=== PATIENT | male | born 1960 | race Caucasian/White ===

== ENCOUNTER 2018-01-07 13:19 | Emergency (ER) | END 2018-01-07 20:56 | disposition home or self-care (01) ==

== ENCOUNTER 2018-01-13 16:00 | Emergency (ER) | END 2018-01-13 21:36 | disposition home or self-care (01) ==

== ENCOUNTER 2018-01-25 09:39 | Inpatient (IN) | payer OTHER ==
[~2018-01-25] VITALS: Ht 177.8 cm; Wt 74.1 kg
[~2018-01-25 09:39] MED LIST: ALLO100T PO; AMAN100C96 PO; BACL10TA PO; BISA10SU55 RC; CARV12.579 PO; CIPR500T4 PO; DOCU-144 PO; DULO30CA47 PO; GABA100C14 PO; HYDR-3980 PO; IBUP-1542 PO; ISON300T18 PO; MAGN400T28 PO; ONDA4TAB8 PO; PETR5OIN3 TOP; POLY15DR25 BOTH EYES; RIFA300C53 PO; RISP1TAB3 PO; ZONI100C66 PO
[2018-01-25] MEDS ORDERED: PIPER-TAZO 3.375 GM IV (PMX) 100 ML IVPB STA (09:47)
[2018-01-25] MEDS ORDERED: VANCOMYCIN 1 GM (PMX) 250 ML IVPB STA (09:47)
[2018-01-25] MEDS ORDERED: SODIUM CHLORIDE 0.9% 1L BAG IV* STA (09:47)
[2018-01-25 10:02] VITALS: Ht 177.8 cm; Wt 74.1 kg
[2018-01-25] MEDS ORDERED: NST15PW TOP (11:02)
[2018-01-25] MEDS ORDERED: ZONI100C66 PO (11:05)
[2018-01-25] MEDS ORDERED: PYRI50TA14 PO (11:09)
[2018-01-25] MEDS ORDERED: FOLI-49 PO (11:09)
[2018-01-25] MEDS ORDERED: FAMO20TA18 PO (11:09)
[2018-01-25] MEDS ORDERED: LIDO30JE13 TP (11:13)
[2018-01-25] MEDS ORDERED: NITROL TD (11:14)
--- NOTE | 2018-01-25 12:16 | ERD ---
ER Documentation Chief Complaint Chief Complaint bilat feet pressure ulcers, wound check HPI This is a 57-year-old male with paraplegia secondary to spinal cord syndrome who presents to the emergency department with ulcers on both of his feet. The patient has had a tactile fever with shaking and chills. No antipyretics were given prior to arrival. The patient states he had a decrease in appetite but denies any chest pain. He denies any abdominal pain. He has no shortness of breath at rest or exertion. He denies any pain of his feet as he states he has no sensation due to his paraplegia. He resides at [place] the hospital was transferred to the emergency department by ambulance. His ex- is here and states that she frequently visits the patient and that the ulcers were not present roughly 2 weeks ago. Ex- states she noticed foul-smelling drainage from the ulcer on the right foot. ROS All systems reviewed and are negative except as per history of present illness. Medications Home Meds Reported Medications Nitroglycerin* (Nitro-Bid* Oint (30gm)) 1 Inch Oint, 1 INCH TD Q6 PRN for DYSURIA, TUB 01/25/18 Lidocaine (Lidocaine Topical) 30 Ml Jel, 30 ML TP PRN PRN for IF CATHETER REMAINS OCCULUDED 01/25/18 Famotidine* (Famotidine*) 20 Mg Tablet, 20 MG PO BID, #60 TAB 01/25/18 Folic Acid* (Folic Acid*) 1 Mg Tablet, 1 MG PO DAILY, TAB 01/25/18 Pyridoxine Hcl* (Pyridoxine Hcl*) 50 Mg Tablet, 50 MG PO DAILY, TAB 01/25/18 Zonisamide* (Zonegran*) 100 Mg Capsule, 300 MG PO QHS, CAP 01/25/18 Nystatin* (Nyamyc* Powder) 1 Applic Powder, 1 APPLIC TOP BID, EA 01/25/18 Polyvinyl Alcohol (Tears Again) 15 Ml Drops, 1 DRP BOTH EYES Q8, BOTTLE 01/07/18 Hydrocodone/Acetaminophen ([place] 10-325 Tablet) 1 Each Tablet, 1 EACH PO Q6 PRN for PAIN, TAB 01/07/18 Risperidone* (Risperidone*) 1 Mg Tablet, 1 MG PO QHS, TAB 01/07/18 Magnesium Oxide* (Magnesium Oxide*) 400 Mg Tablet, 400 MG PO BID, TAB 01/07/18 Gabapentin* (Gabapentin*) 100 Mg Capsule, 100 MG PO BID, #90 CAP 01/07/18 Petrolatum,White* (Vaseline*) 5 Gm Oint.pack, 1 APPLIC TOP BID, PACKET 01/07/18 Carvedilol* (Carvedilol*) 12.5 Mg Tablet, 12.5 MG PO BID, #60 TAB 01/07/18 Duloxetine Hcl* (Duloxetine Hcl*) 30 Mg Capsule.dr, 30 MG PO DAILY, #30 CAP 01/07/18 Baclofen* (Baclofen*) 10 Mg Tablet, 10 MG PO TID, TAB 01/07/18 Allopurinol* (Allopurinol*) 100 Mg Tablet, 100 MG PO DAILY, TAB 01/07/18 Rifampin* (Rifampin*) 300 Mg Cap, 600 MG PO DAILY, CAP 01/07/18 Isoniazid* (Isoniazid*) 300 Mg Tablet, 300 MG PO DAILY, TAB 01/07/18 Bisacodyl (Dulcolax) 10 Mg Supp.rect, 10 MG RC DAILY PRN for CONSTIPATION, SUPP.RECT 01/07/18 Docusate Sodium* (Colace*) 100 Mg Capsule, 100 MG PO BID PRN for CONSTIPATION, #60 CAP 01/07/18 Discontinued Reported Medications Zonisamide* (Zonegran*) 100 Mg Capsule, 200 MG PO DAILY, CAP TAKE TWO CAPS STARTING 01-10 THRU 01-16-18 THEN THREE CAPS AFTER 01/07/18 Zonisamide* (Zonegran*) 100 Mg Capsule, 100 MG PO DAILY, CAP TAKE ONE CAP THRU 01-09-18 01/07/18 Amantadine Hcl* (Amantadine Hcl*) 100 Mg Capsule, 100 MG PO BID, #60 CAP 01/07/18 Polyvinyl Alcohol (Tears Again) 15 Ml Drops, 1 DRP BOTH EYES QID, BOTTLE 01/07/18 Discontinued Scripts Ondansetron Hcl* (Zofran*) 4 Mg Tablet, 4 MG PO Q8H PRN for NAUSEA AND/OR VOMITING, #30 TAB Prov:MARC BLACKBURN MD 01/13/18 Ibuprofen* (Motrin*) 600 Mg Tab, 600 MG PO Q8 PRN for PAIN AND/OR INFLAMMATION, #30 TAB Prov:MARC BLACKBURN MD 01/13/18 Ciprofloxacin Hcl* (Ciprofloxacin Hcl*) 500 Mg Tablet, 500 MG PO BID for 10 Days, TAB Prov:CRISTOPHER SPAIN MD 01/07/18 Allergies Allergies: Coded Allergies: chicken derived (Verified Allergy, Unknown, 01/25/18) shrimp (Verified Allergy, Unknown, 01/25/18) PMhx/Soc History of Surgery: Yes (back) Hx Cardiac Disorders: Yes (htn) Hx Psychiatric Problems: No Hx Miscellaneous Medical Probl: Yes (dm2; paraplegic) Hx Alcohol Use: No Hx Substance Use: No Hx Tobacco Use: No Smoking Status: Never smoker Physical Exam Vitals Vital Signs Date Temp Pulse Resp B/P (MAP) Pulse Ox O2 O2 Flow FiO2 Time Delivery Rate 01/25/18 89 31 101/66 100 Room Air 11:59 (78) 01/25/18 98 15 86/57 (67) 100 Room Air 10:02 01/25/18 96.8 111 21 86/57 (67) 100 10:02 Physical Exam Constitutional:Well-developed. Well-nourished. HEENT:Normocephalic. Atraumatic.Pupils were equal round reactive to light. Moist mucous membranes.No tonsillar exudates. Neck: No nuchal rigidity. No lymphadenopathy. No posterior cervical spine tenderness or step-offs. Respiratory: Not using accessory muscles of respiration.Lungs were clear to auscultation bilaterally. No rhonchi. No rales. No wheezing. Cardiovascular: Regular rate regular rhythm.No murmurs. No rubs were appreciated.S1, S2 normal. Distal pulses are palpable 2+ bilaterally. GI: Abdomen was soft. Nontender. Non Distended. No pulsatile abdominal masses or bruits. No rebound. No guarding. Bowel sounds were present and normal. Muscle skeletal: Full range of motion of both the upper extremities bilaterally. Muscle atrophy of the bilateral lower extremities. Patient has no active movement of bilateral lower extremities due to paraplegia Skin: No petechia, no purpura. No lesions on the palms or the soles of the feet. No maculopapular rash. Bilateral ulcers present on the calcaneus of the left and the right foot. Eschar formation with no subcutaneous emphysema over the right calcaneus. Purulent drainage with no fluctuance or induration over the left calcaneus ulcer that extends to the medial aspect of the foot roughly 4 cm x 5 cm. NEURO: Patient was alert, awake, orientated x3.No facial droop. Gait unobserved as patient is paralyzed. Result Diagram: 01/25/18 1000 01/25/18 1000 Results 24 hrs Laboratory Tests Test 01/25/18 10:00 01/25/18 10:13 White Blood Count 4.8 10^3/ul Red Blood Count 3.39 10^6/ul Hemoglobin 8.6 g/dl Hematocrit 27.6 % Mean Corpuscular Volume 81.4 fl Mean Corpuscular Hemoglobin 25.4 pg Mean Corpuscular Hemoglobin Concent 31.2 g/dl Red Cell Distribution Width 15.6 % Platelet Count 403 10^3/UL Mean Platelet Volume 9.4 fl Immature Granulocytes % 0.400 % Neutrophils % 57.1 % Lymphocytes % 24.3 % Monocytes % 7.8 % Eosinophils % 9.6 % Basophils % 0.8 % Nucleated Red Blood Cells % 0.0 /100WBC Immature Granulocytes # 0.020 10^3/ul Neutrophils # 2.7 10^3/ul Lymphocytes # 1.2 10^3/ul Monocytes # 0.4 10^3/ul Eosinophils # 0.5 10^3/ul Basophils # 0.0 10^3/ul Nucleated Red Blood Cells # 0.0 10^3/ul Prothrombin Time 14.8 Sec Prothrombin Time Ratio 1.2 INR International Normalized Ratio 1.14 Activated Partial Thromboplast Time 45.9 Sec Sodium Level 137 mmol/L Potassium Level 4.9 mmol/L Chloride Level 107 mmol/L Carbon Dioxide Level 20 mmol/L Anion Gap 10 Blood Urea Nitrogen 9 mg/dl Creatinine 0.72 mg/dl Est Glomerular Filtrat Rate mL/min > 60 mL/min Glucose Level 109 mg/dl Calcium Level 8.5 mg/dl Total Bilirubin 0.4 mg/dl Direct Bilirubin 0.00 mg/dl Indirect Bilirubin 0.4 mg/dl Aspartate Amino Transf (AST/SGOT) 57 IU/L Alanine Aminotransferase (ALT/SGPT) 14 IU/L Alkaline Phosphatase 95 IU/L Troponin I < 0.012 ng/ml Total Protein 6.9 g/dl Albumin 3.3 g/dl Globulin 3.60 g/dl Albumin/Globulin Ratio 0.91 Amylase Level 59 U/L Lipase 106 U/L POC Venous Lactate 1.8 mmol/L Current Medications Medications Dose Sig/Betzaida Start Time Status Last (Trade) Ordered Route PRN Stop Time Admin Dose Reason Admin Sodium 2,400 ml BOLUS OVER 2 01/25/18 DC 01/25/18 Chloride HOURS STAT 09:47 10:36 (NS) IV* 01/25/18 09:49 Vancomycin 250 ml @ ONCE STAT 01/25/18 DC 01/25/18 HCl 125 mls/hr IVPB 09:47 10:36 01/25/18 11:46 Piperacillin 100 ml @ ONCE STAT 01/25/18 DC 01/25/18 Sod/ 200 mls/hr IVPB 09:47 10:36 Tazobactam 01/25/18 Sod 10:16 Procedures/MDM The patient presented to the emergency department with a spreading erythematous superficial infection of the skin and subcutaneous tissues. My differential diagnosis included but was not limited to necrotizing fasciitis, lymphangitis, thrombophlebitis, deep vein thrombosis, allergic reaction, neoplasm, gout or a bscess. Predisposing factors of the progressive spread of erythema, warmth, pain and tenderness was considered such as lymphedema, tinea pedis, open wounds, prior trauma or surgery, pre-existing skin lesion (furuncle), retained foreign body, injection drug use or vascular or immune compromise. The patient was placed on antibiotics to cover Staphylococcus aureus, including resistant strains such as community-acquired methicillin-resistant S. aureus. The patient had no evidence of sepsis and lactic acid was normal. There is no leukocytosis. The patient was afebrile. The patient did receive IV antibiotics in the emergency department which consisted of clindamycin and vancomycin. I obtained bilateral radiographic imaging, 2 views of both the left and the right foot which showed no secondary changes to suggest ostium mellitus. However it is unknown how long the patient's cellulitic ulcers have been present. Due to the severity of his symptoms I do feel is necessary that the patient be admitted for IV antibiotics and wound care. I do feel the patient was stable to go to the medical surgical floor. 12 Lead EKG tracing ordered and reviewed by myself showed: Normal sinus rhythm of 87 bpm and no arrhythmia. KS interval normal QRS duration prolonged at 142 ms with a right bundle branch block. No ST segment elevation No ST segment depression. No changes consistent with acute ischemia. Departure Diagnosis: Primary Impression: Cellulitis Site of cellulitis: extremity Site of cellulitis of extremity: lower extremity Laterality: unspecified laterality Qualified Codes: L03.119 - Cellulitis of unspecified part of limb Additional Impression: Anemia Anemia type: unspecified type Qualified Codes: D64.9 - Anemia, unspecified Condition: Serious AYDEN GONZALEZ MD Jan 25, 2018 12:16
[2018-01-25] MEDS ORDERED: ONDANSETRON 4 MG INJ IV STA (13:12)
[2018-01-25] MEDS ORDERED: HYDROmorphONE 1 MG/ML SYG IV STA (13:12)
[2018-01-25] MEDS ORDERED: ONDANSETRON 4 MG INJ IV PRN ×2 (15:00→15:30)
[2018-01-25] MEDS ORDERED: ACETAMINOPHEN 325 MG TAB PO PRN (15:00)
[2018-01-25] MEDS ORDERED: DOCUSATE SODIUM 100 MG CAP PO PRN ×2 (15:30)
[2018-01-25] MEDS ORDERED: NACL 0.9% 3 ML SYG IV SCH (15:30)
[2018-01-25] MEDS ORDERED: VANCOMYCIN IV PER PHARMACY XX SCH (15:30)
[2018-01-25] MEDS ORDERED: ZOLPIDEM 5 MG TAB PO PRN (15:30)
--- NOTE | 2018-01-25 16:11 | NUR ---
Vancomycin per Rx 57 y/o M 5'10" 74.1kg SCr 0.72 No drug allergy chicken derived and shrimp allergy Vancomycin 1gm IV x1 dose given in ER Start Vancomycin 1.25 gm IV q12h
[2018-01-25] MEDS ORDERED: PENDING SANTYL ORDER FOR WOUND CARE XX PRN (16:30)
--- NOTE | 2018-01-25 17:39 | NUR ---
RN Notes: Admitted this male patient from ER under Dr. Jensen due to bilateral foot pressure sore, alert and oriented, afebrile, denies pain/discomfort, no acute distress noted, no sob noted, paraplegic due to spinal cord syndrome, Benavidez patent and intact draining well, no hematuria noted, skin assessment done noted with skin issue as documented on wound intervention, MD aware, referred to wound care for consult, ordered low air loss mattress. Kept clean and dry. Admission care rendered. Will continue to monitor and endorse to next shift for continuity of care.
--- NOTE | 2018-01-25 19:36 | HP ---
Date/Time of Note Date/Time of Note DATE: 01/25/18 TIME: 19:28 Assessment/Plan VTE Prophylaxis SCD applied (from Nsg): Yes Pharmacological prophylaxis: NA/contraindicated Pharm contraindication: surgical contra Lines/Catheters IV Catheter Type (from Nrsg): Peripheral IV Assessment/Plan Hospital Course 1. Right heel ulcer likely secondary to bedbound state Wound Care and IV antibiotics Podiatry consult obtained 2. Paraplegia secondary to spinal disorder and back surgery 6 months ago Exact nature of disorder and surgery unclear Patient resides in a skilled nurse facility Continue baclofen 3. Likely latent TB per home meds Continue isoniazid 4. Depression Continue home Cymbalta 5. Hypertension Continue Coreg Prophylaxis: SCDs HPI/ROS Admit Date/Time Admit Date/Time Jan 25, 2018 at 14:38 Hx of Present Illness Patient is a 57-year-old male with a history of paraplegia reportedly for the last 6 months secondary to spinal cord syndrome presents to the ER with ulcers on both his feet. [facility], according to patient's ex- ulcers are new over the past 2 weeks reportedly has been woody ving foul-smelling drainage from the ulcer on the right foot. In the ER patient has no evidence of sepsis. Patient has no other acute complaints at this time. ROS Constitutional: no complaints, improved Eyes: no complaints ENT: no complaints Respiratory: no complaints Cardiovascular: no complaints Gastrointestinal: no complaints Genitourinary: no complaints Musculoskeletal: no complaints Skin: skin lesions Neurologic: no complaints Endocrine: no complaints Lymphatic: no complaints Psychological: no complaints, nl mood/affect Immunologic: no complaints PMH/Family/Social Past Medical History As per HPI Coded Allergies: chicken derived (Verified Allergy, Unknown, 01/25/18) shrimp (Verified Allergy, Unknown, 01/25/18) Past Surgical History Spinal surgery 6 months ago which reportedly left him paralyzed Family History Significant Family History: no pertinent family hx Social History Alcohol Use: rarely Smoking Status: Never smoker Drug Use: none Exam/Review of Systems Vital Signs Vitals Vital Signs Date Temp Pulse Resp B/P (MAP) Pulse Ox O2 O2 Flow FiO2 Time Delivery Rate 01/25/18 84 22 106/68 100 Room Air 15:01 (81) 01/25/18 96.8 10:02 Exam Constitutional: alert, oriented Respiratory: clear to auscultation Cardiovascular: regular rate and rhythm Gastrointestinal: soft; No distended Musculoskeletal: nl extremities to inspection Medications Medications Current Medications IV Flush (NS 3 ml) 3 ml PER PROTOCOL IV ; Start 01/25/18 at 15:30 Ondansetron HCl (Zofran Inj) 4 mg Q6H PRN IV NAUSEA AND/OR VOMITING; Start 01/25/18 at 15:30 Acetaminophen (Tylenol Tab) 650 mg Q6H PRN PO PAIN LEVEL 1-3 OR FEVER; Start 01/25/18 at 15:30 Acetaminophen/ Hydrocodone Bitart ([place] (5/325)) 1 tab Q6H PRN PO MODERATE PAIN LEVEL 4-6; Start 01/25/18 at 15:30 Morphine Sulfate (morphine) 2 mg Q4H PRN IV SEVERE PAIN LEVEL 7-10; Start 01/25/18 at 15:30 Docusate Sodium (Colace) 100 mg Q12H PRN PO CONSTIPATION; Start 01/25/18 at 15:30 Zolpidem Tartrate (Ambien) 5 mg QHS PRN PO SLEEP; Start 01/25/18 at 15:30 Allopurinol (Zyloprim) 100 mg DAILY PO ; Start 01/26/18 at 09:00 Baclofen (Lioresal) 10 mg TID PO ; Start 01/25/18 at 21:00 Carvedilol (Coreg) 12.5 mg BID PO ; Start 01/25/18 at 21:00 Docusate Sodium (Colace) 100 mg BID PRN PO CONSTIPATION; Start 01/25/18 at 15:30 Duloxetine HCl (Cymbalta) 30 mg DAILY PO ; Start 01/26/18 at 09:00 Famotidine (Pepcid) 20 mg BID PO ; Start 01/25/18 at 21:00 Folic Acid (Folic Acid) 1 mg DAILY PO ; Start 01/26/18 at 09:00 Gabapentin (Neurontin) 100 mg BID PO ; Start 01/25/18 at 21:00 Isoniazid (Isoniazid) 300 mg DAILY PO ; Start 01/26/18 at 09:00 Magnesium Oxide (Mag-Ox 400) 400 mg BID PO ; Start 01/25/18 at 21:00 Nystatin 1 applic BID TOP ; Start 01/25/18 at 21:00 Pyridoxine HCl (Vitamin B6) 50 mg DAILY PO ; Start 01/26/18 at 09:00 Rifampin (Rifampin) 600 mg DAILY PO ; Start 01/26/18 at 09:00 Risperidone (Risperdal) 1 mg QHS PO ; Start 01/25/18 at 21:00 Zonisamide (Zonegran) 300 mg QHS PO ; Start 01/25/18 at 21:00 Vancomycin HCl (Vanco Iv Per Pharmacy) VANCOMYCIN PER PHARMACY PER PROTOCOL XX ; Start 01/25/18 at 15:30 Eye Lubricant (Artificial Tears Oph) 1 drop Q8 BOTH EYES ; Start 01/25/18 at 22:00 Vancomycin HCl 1.25 gm/Sodium Chloride 250 ml @ 83.333 mls/ hr Q12H IVPB ; Start 01/25/18 at 22:00 Influenza Virus Vaccine Quadrival (Fluzone) 0.5 ml ONCE ONCE IM* ; Start 01/26/18 at 09:00; Stop 01/26/18 at 09:01 Miscellaneous Information (Pending [facility] Order For Wound Care) This patient woody... PRN PRN XX wound; Start 01/25/18 at 16:30 Results Result Diagram: 01/25/18 1000 01/25/18 1000 ALEKSANDR GALAVIZ Jan 25, 2018 19:36
[2018-01-25] MEDS: morphine 2 MG INJ IV PRN (19:57)
[2018-01-25 20:00] VITALS: BP 116/68; PULSE 85; RESP 18
[2018-01-25] MEDS ORDERED: POLYVINYL ALCOHOL BOTH EYES SCH (22:00)
[2018-01-25] MEDS: GABAPENTIN 100 MG CAP PO SCH (22:10)
[2018-01-25] MEDS: MAGNESIUM OXIDE 400 MG TAB PO SCH (22:10)
[2018-01-25] MEDS: FAMOTIDINE 20 MG TAB PO SCH (22:10)
[2018-01-25] MEDS: RISPERIDONE 1 MG TAB PO SCH (22:11)
[2018-01-25] MEDS: BACLOFEN 10 MG TAB PO SCH (22:11)
[2018-01-25] MEDS: ARTIFICIAL TEARS 15 ML OPH BOTH EYES SCH (22:12)
[2018-01-25] MEDS: ZONISAMIDE 100 MG CAP PO SCH (22:12)
[2018-01-25] MEDS: NYSTATIN 15 GM POWDER BTL TOP SCH (22:12)
[2018-01-25] MEDS: VANCOMYCIN 1.25 GM in SOD CHLORIDE 0.9% 250 ML IVPB SCH (22:39)
[2018-01-26] MEDS: morphine 2 MG INJ IV PRN ×2 (00:27→13:40)
[2018-01-26 02:00] VITALS: BP 115/66; PULSE 65; RESP 18
[2018-01-26] MEDS: ARTIFICIAL TEARS 15 ML OPH BOTH EYES SCH ×3 (06:49→21:31)
[2018-01-26 08:03] VITALS: BP 115/65; PULSE 78; RESP 17
[2018-01-26] MEDS: RIFAMPIN 300 MG CAP PO SCH (08:38)
[2018-01-26] MEDS: FOLIC ACID 1 MG TAB PO SCH (08:38)
[2018-01-26] MEDS: GABAPENTIN 100 MG CAP PO SCH ×2 (08:38→21:32)
[2018-01-26] MEDS: DULOXETINE 30 MG CAP DR PO SCH (08:39)
[2018-01-26] MEDS: FAMOTIDINE 20 MG TAB PO SCH ×2 (08:39→21:33)
[2018-01-26] MEDS: PYRIDOXINE 50 MG TAB PO SCH (08:39)
[2018-01-26] MEDS: BACLOFEN 10 MG TAB PO SCH ×3 (08:39→21:33)
[2018-01-26] MEDS: ISONIAZID 300 MG TAB PO SCH (08:39)
[2018-01-26] MEDS: MAGNESIUM OXIDE 400 MG TAB PO SCH ×2 (08:39→21:33)
[2018-01-26] MEDS: ALLOPURINOL 100 MG TAB PO SCH (08:39)
[2018-01-26] MEDS: NYSTATIN 15 GM POWDER BTL TOP SCH ×2 (08:40→21:34)
--- NOTE | 2018-01-26 08:43 | NUR ---
UM:clinical review,h/p and face sheet faxed to [facility] with confirmation rec'd.
[2018-01-26] MEDS: VANCOMYCIN 1.25 GM in SOD CHLORIDE 0.9% 250 ML IVPB SCH ×2 (09:39→21:31)
--- NOTE | 2018-01-26 12:24 | PN ---
Date/Time of Note Date/Time of Note DATE: 01/26/18 TIME: 12:23 Assessment/Plan VTE Prophylaxis Risk score (from Nsg)>0 risk: 6 SCD applied (from Nsg): Yes Pharmacological prophylaxis: NA/contraindicated Pharm contraindication: bleeding, anticoag not tolerated Lines/Catheters IV Catheter Type (from Nrsg): Peripheral IV Urinary Cath still in place: Yes Reason Cath still needed: pres ulcer contaminated by urine, other (indicate) Assessment/Plan Hospital Course SUBJECTIVE: Lying in bed comfortably. No acute overnight episodes. OBJECTIVE: Vital signs-see below PHYSICAL EXAM: Constitutional: Bedbound male, not in acute distress. Psych: nl mood/affect, no complaints Head: atraumatic, normocephalic Eyes: nl conjunctiva, nl sclera ENMT: mucosa pink and moist, nl external ears & nose Neck: non-tender, supple Respiratory: clear to auscultation, normal air movement Cardiovascular: nl pulses, regular rate and rhythm Gastrointestinal: non-tender, soft, bowel sounds active in all 4 quadrants. Musculoskeletal/extremities: Paraplegic. Normal pulses,no cyanosis, no edema. Neurological: Alert oriented 3,nl speech, nl strength Skin: Bilateral heel with ulcers, covered with dressing. No oozing noted on dressing. Nl turgor ASSESSMENT/PLAN: Very unfortunate 57-year-old male with a history of paraplegia secondary to spinal cord syndrome 6 months ago, who also resides in a [facility], presented to the emergency room with worsening bilateral heel ulcers with foul-smelling drainage 1. Bilateral heel ulcer likely decub ulcers Wound Care and IV antibiotics Follow-up podiatry recommendations 2. Paraplegia secondary to spinal disorder and back surgery 6 months ago Exact nature of disorder and surgery unclear Continue baclofen 3. Likely latent TB per home meds Continue isoniazid 4. Depression Continue home Cymbalta 5. Hypertension Continue Coreg 6. Debility secondary to #2. Patient resides in a [facility]. 7. Anemia -Obtain iron panel. -If hemoglobin drops below 7, we will transfuse. Prophylaxis: SCDs. Disposition: Continue aggressive wound care and antibiotics. Follow podiatry recommendations. Patient was seen in collaboration with Dr. Awad. Exam/Review of Systems Vital Signs Vitals Vital Signs Date Temp Pulse Resp B/P (MAP) Pulse Ox O2 O2 Flow FiO2 Time Delivery Rate 01/26/18 99.1 78 17 115/65 99 Room Air 08:03 (82) Intake and Output 01/25/18 01/25/18 01/26/18 1515:00 23:00 07:00 IntakeIntake Total 300 ml 450 ml OutputOutput Total 350 ml 1000 ml BalanceBalance -50 ml -550 ml Medications Medications Current Medications IV Flush (NS 3 ml) 3 ml PER PROTOCOL IV ; Start 01/25/18 at 15:30 Ondansetron HCl (Zofran Inj) 4 mg Q6H PRN IV NAUSEA AND/OR VOMITING; Start 01/25/18 at 15:30 Acetaminophen (Tylenol Tab) 650 mg Q6H PRN PO PAIN LEVEL 1-3 OR FEVER; Start 01/25/18 at 15:30 Acetaminophen/ Hydrocodone Bitart ([place] (5/325)) 1 tab Q6H PRN PO MODERATE PAIN LEVEL 4-6; Start 01/25/18 at 15:30 Morphine Sulfate (morphine) 2 mg Q4H PRN IV SEVERE PAIN LEVEL 7-10 Last administered on 01/26/18at 00:27; Admin Dose 2 MG; Start 01/25/18 at 15:30 Docusate Sodium (Colace) 100 mg Q12H PRN PO CONSTIPATION; Start 01/25/18 at 1 5:30 Zolpidem Tartrate (Ambien) 5 mg QHS PRN PO SLEEP; Start 01/25/18 at 15:30 Allopurinol (Zyloprim) 100 mg DAILY PO Last administered on 01/26/18at 08:39; Admin Dose 100 MG; Start 01/26/18 at 09:00 Baclofen (Lioresal) 10 mg TID PO Last administered on 01/26/18at 08:39; Admin Dose 10 MG; Start 01/25/18 at 21:00 Carvedilol (Coreg) 12.5 mg BID PO Last administered on 01/26/18at 08:40; Admin Dose 12.5 MG; Start 01/25/18 at 21:00 Docusate Sodium (Colace) 100 mg BID PRN PO CONSTIPATION; Start 01/25/18 at 15:30 Duloxetine HCl (Cymbalta) 30 mg DAILY PO Last administered on 01/26/18at 08:39; Admin Dose 30 MG; Start 01/26/18 at 09:00 Famotidine (Pepcid) 20 mg BID PO Last administered on 01/26/18 08:39; Admin Dose 20 MG; Start 01/25/18 at 21:00 Folic Acid (Folic Acid) 1 mg DAILY PO Last administered on 01/26/18 08:38; Admin Dose 1 MG; Start 01/26/18 at 09:00 Gabapentin (Neurontin) 100 mg BID PO Last administered on 01/26/18 08:38; Admin Dose 100 MG; Start 01/25/18 at 21:00 Isoniazid (Isoniazid) 300 mg DAILY PO Last administered on 01/26/18 08:39; Admin Dose 300 MG; Start 01/26/18 at 09:00 Magnesium Oxide (Mag-Ox 400) 400 mg BID PO Last administered on 01/26/18 08:39; Admin Dose 400 MG; Start 01/25/18 at 21:00 Nystatin 1 applic BID TOP Last administered on 01/26/18 08:40; Admin Dose 1 APPLIC; Start 01/25/18 at 21:00 Pyridoxine HCl (Vitamin B6) 50 mg DAILY PO Last administered on 01/26/18 08:39; Admin Dose 50 MG; Start 01/26/18 at 09:00 Rifampin (Rifampin) 600 mg DAILY PO Last administered on 01/26/18 08:38; Admin Dose 600 MG; Start 01/26/18 at 09:00 Risperidone (Risperdal) 1 mg QHS PO Last administered on 01/25/18 22:11; Admin Dose 1 MG; Start 01/25/18 at 21:00 Zonisamide (Zonegran) 300 mg QHS PO Last administered on 01/25/18 22:12; Admin Dose 300 MG; Start 01/25/18 at 21:00 Vancomycin HCl (Vanco Iv Per Pharmacy) VANCOMYCIN PER PHARMACY PER PROTOCOL XX ; Start 01/25/18 at 15:30 Eye Lubricant (Artificial Tears Oph) 1 drop Q8 BOTH EYES Last administered on 01/26/18 06:49; Admin Dose 1 DROP; Start 01/25/18 at 22:00 Vancomycin HCl 1.25 gm/Sodium Chloride 250 ml @ 83.333 mls/ hr Q12H IVPB Last administered on 01/26/18 09:39; Admin Dose 83.333 MLS/HR; Start 01/25/18 at 22:00 Miscellaneous Information (Pending Santyl Order For Wound Care) This patient woody... PRN PRN XX wound; Start 01/25/18 at 16:30 Miscellaneous Information (*Rx Drug Level Order Reminder*) 1 ONCE ONCE XX ; Start 01/27/18 at 09:00; Stop 01/27/18 at 09:01 Results Result Diagram: 01/26/18 0555 01/26/18 0555 Results 24 hrs Laboratory Tests Test 01/25/18 12:23 01/25/18 12:54 01/25/18 14:35 01/26/18 05:55 Urine Color YESI Urine Clarity CLEAR Urine pH 7.0 Urine Specific 1.014 [place] Urine Ketones NEGATIVE Urine Nitrite NEGATIVE Urine Bilirubin NEGATIVE Urine NEGATIVE Urobilinogen Urine Leukocyte NEGATIVE Esterase Urine Hemoglobin NEGATIVE Urine Glucose NEGATIVE Urine Total NEGATIVE Protein POC Venous 1.2 Lactate Lactic Acid 0.8 Level White Blood 3.3 #L Count Red Blood Count 3.00 L Hemoglobin 7.7 L Hematocrit 25.0 L Mean Corpuscular 83.3 Volume Mean Corpuscular 25.7 L Hemoglobin Mean Corpuscular 30.8 L Hemoglobin Mary nt Red Cell 15.7 H Distribution Width Platelet Count 352 Mean Platelet 9.1 Volume Immature 0.300 Granulocytes % Neutrophils % 50.5 Lymphocytes % 25.2 Monocytes % 11.6 H Eosinophils % 11.2 H Basophils % 1.2 Nucleated Red 0.0 Blood Cells % Immature 0.010 Granulocytes # Neutrophils # 1.7 Lymphocytes # 0.8 Monocytes # 0.4 Eosinophils # 0.4 Basophils # 0.0 Nucleated Red 0.0 Blood Cells # Sodium Level 140 Potassium Level 4.2 Chloride Level 114 H Carbon Dioxide 20 L Level Anion Gap 6 Blood Urea 7 Nitrogen Creatinine 0.79 Est Glomerular > 60 Filtrat Rate mL/min Glucose Level 90 Hemoglobin A1c 5.7 Calcium Level 8.3 L Phosphorus Level 3.6 Magnesium Level 2.3 LIVIA ADAME NP Jan 26, 2018 12:24
--- NOTE | 2018-01-26 12:49 | NUR ---
Wound Care Consult: 57-year-old male with a history of paraplegia reportedly for the last 6 months secondary to spinal cord syndrome presents to the ER with ulcers on both his feet. Patient resides in a [facility] facility, according to patient's ex- ulcers are new over the past 2 weeks reportedly has been having foul-smelling drainage from the ulcer on the right foot. WOCN spoke with patient htis AM per patient request regarding update on wound status Wound care team consulted for wounds present on admission Sacrococcyx pressure ulcer stage III. 15cm x 7cm x 0.2cm. Wound bed with noted 85% pink-red granulating tissue and 15% light yellow slough tissue. Wound edges looks macerated from moisture, small to moderate amount of drainage noted. periwound reddened form moisture association. Denies pain at this time. No odor noted. Treatment recommendation include, cleanse area with normal saline, pat dry, apply Silver alginate and cover with foam border dressing daily and as needed. Scrotal area skin denuded from Moisture associated incontinence dermatitis. Treatment recommendation include, cleanse area with mild soap and water, dry well, apply Calazime cream BID and as needed. Upper Back scar from previous procedure. Keep clean and intact Lower back scaly and dry skin, possible eczema. Keep area clean and dry, PMD to evaluate for possible need of treatment Left malleolus, lateral unstageable PI. 1cm x1cm. dark-brown color and non-blanchable area. Skin intact and no drainage noted. Treatment recommendation include, Cleanse area with normal saline, pat dry, apply Venelex cream apply foam border dressing daily and as needed. Left heel unstageable PI. 7cm x 6.5cm x 0.2cm. open blister. dark-brown color and non-blanchable area. Skin intact and small to moderate serosanguineous drainage noted. Treatment recommendation include, Cleanse area with normal saline, pat dry, apply Venelex cream apply foam border dressing daily and as needed on areas that are not open. Betadine wipe on wound are and place Silver alginate followed by dry dressing secured with kerlix roll and tape daily and as needed Right Heel unstageable PI. 5cm x 6cm x 0.2cm. open blister. dark-brown color and non-blanchable area. Skin intact and small to moderate serosanguineous drainage noted. Treatment recommendation include, Cleanse area with normal saline, pat dry, apply Venelex cream apply foam border dressing daily and as needed on areas that are not open. Betadine wipe on wound are and place Silver alginate followed by dry dressing secured with kerlix roll and tape daily and as needed Right lateral foot, near ankle area 1cm x1cm. dark-brown color and non-blanchable area. Skin intact and no drainage noted. Treatment recommendation include, Cleanse area with normal saline, pat dry, apply Venelex cream apply foam border dressing daily and as needed. Right Malleolus, ateral unstageable PI. 1cm x1cm. dark-brown color and non-blanchable area. Skin intact and no drainage noted. Treatment recommendation include, Cleanse area with normal saline, pat dry, apply Venelex cream apply foam border dressing daily and as needed. Elevate Heels with Pillows to off-load Reposition every 2 hours per department protocol Report skin changes to PMD and/or WOCN skin changes for further evaluation WOCN discussed with Keerthi unit chief of hospital medicine and treatment recommendation. Unit RN to coordinate with PMD as discussed. Keegan Bustamante, NEELA MSN WOCN CM
[2018-01-26 14:08] VITALS: BP 111/72; PULSE 82; RESP 18
--- NOTE | 2018-01-26 16:22 | NUR ---
RN Notes: Patient remains alert and oriented, afebrile, no acute distress noted, c/o pain medicated as ordered with some relief. Pt was seen by wound nurse with wound care recommendation, SUKUMAR Segovia aware and received order. Incontinence care rendered, kept clean and dry. Hourly rounding done, Call light within reach, bed alarm on. Will continue to monitor until the end of the shift.
--- NOTE | 2018-01-26 18:16 | NUR ---
RN Notes: No significant events during this shift. Pt refused FLU Vaccine at this time. Hourly rounding done, bed alarm on, call light within reach, assisted to go to the bathroom. Will continue to monitor and endorse to next shift for continuity of care. Addendum: 01/26/18 at 1819 by WENDY ESCOBAR RN wrong pt for this nurses notes entry..
--- NOTE | 2018-01-26 18:25 | NUR ---
RN Notes: Dr. Adan came and evaluated pt bilateral heel unstageable wound with order for prepare consent for stage bilateral wound debridement, explained the procedure to pt understand and signed consent, did the procedure at pt's bedside tolerated well and changed dressing appear clean and dry. Pt refused FLU Vaccine at this time. Will endorse to next shift for continuity of care.
[2018-01-26 20:00] VITALS: BP 122/64; PULSE 92; RESP 18
--- NOTE | 2018-01-26 20:01 | CONS ---
Date/Time of Note Date/Time of Note DATE: 01/26/18 TIME: 20:01 Assessment/Plan Assessment/Plan Additional Assessment/Plan 1) B/l decubitus heel ulcers right unstageable, Left stage 1 2) Left decubitus ankle ulcer stage 2 3) Paraplegia b/l LE 4) Peripheral neuropathy 5) HTN 6) Depression 7) Latent TB Plan: Consent was obtained and performed excisional debridement of bilateral heel decubitus wounds with scissors, pickups, and scalpel blade. Skin and subcutaneous tissue was excisionally debrided and wounds were irrigated with copious saline solution. Right foot wound cultures were obtained. 20cm2 area of debridement performed. Daily wound dressing changes with dakins irrigation and dress with xeroform and kerlix. Wound care orders are in place. Emphasized to nurse strict offloading of heels with pillows. X-rays reviewed and did not appreciate sign of osteomyelitis. Continue with IV abx as per recommendations. Non-invasive studies ordered. Monitor while in house. Medical decisions, treatment and plan coordinated with Dr. Courtney. Consultation Date/Type/Reason Admit Date/Time Jan 25, 2018 at 14:38 Hx of Present Illness 57 y/o paraplegic M patient presents to the floor with bilateral pressure heel wounds. Patient states they have been present for over two weeks. Patient states he was at another facility and his ex- also helps with the dressing changes and noticed worsening signs of the wound with foul smell. Patient denies f/c/n/v no chest pain or shortness of breath. ROS: negative except HPI. Past Medical History Paraplegia, HTN, depression, latent TB Past Surgical History Spinal surgery 6 months ago which reportedly left him paralyzed Social History Alcohol Use: rarely Smoking Status: Never smoker Drug Use: none Exam/Review of Systems Vital Signs Vitals Vital Signs Date Temp Pulse Resp B/P (MAP) Pulse Ox O2 O2 Flow FiO2 Time Delivery Rate 01/26/18 98.0 82 18 111/72 99 Room Air 14:08 (85) Intake and Output 01/25/18 01/25/18 01/26/18 1515:00 23:00 07:00 IntakeIntake Total 300 ml 450 ml OutputOutput Total 350 ml 1000 ml BalanceBalance -50 ml -550 ml Exam Palpable pedal pulses 2+ pitting edema Right foot full thickness ulcer with stable central necrotic wound base and surrounding granular tissue. No eschar formation, indeterminate depth wound margins measures 4 x 5 cm. No purulence expressed, no probing to bone, no proximal streaking. Left heel ulcer with mixed partial and full thickness wound granular wound base no probing to bone, no proximal streaking, no purulence expressed Left lateral malleolus with 1.0 x 0.8 x 0.3cm mixed granular and necrotic wound base which does not probe to bone, no proximal streaking, no purulence. Absent muscle strength to the lower extremity Absent protective sensations to the bilateral lower extremities. Medications Medications Current Medications IV Flush (NS 3 ml) 3 ml PER PROTOCOL IV ; Start 01/25/18 at 15:30 Ondansetron HCl (Zofran Inj) 4 mg Q6H PRN IV NAUSEA AND/OR VOMITING; Start 01/25/18 at 15:30 Acetaminophen (Tylenol Tab) 650 mg Q6H PRN PO PAIN LEVEL 1-3 OR FEVER; Start 01/25/18 at 15:30 Acetaminophen/ Hydrocodone Bitart ([place] (5/325)) 1 tab Q6H PRN PO MODERATE PAIN LEVEL 4-6; Start 01/25/18 at 15:30 Morphine Sulfate (morphine) 2 mg Q4H PRN IV SEVERE PAIN LEVEL 7-10 Last administered on 01/26/18at 13:40; Admin Dose 2 MG; Start 01/25/18 at 15:30 Docusate Sodium (Colace) 100 mg Q12H PRN PO CONSTIPATION; Start 01/25/18 at 15:30 Zolpidem Tartrate (Ambien) 5 mg QHS PRN PO SLEEP; Start 01/25/18 at 15:30 Allopurinol (Zyloprim) 100 mg DAILY PO Last administered on 01/26/18at 08:39; Admin Dose 100 MG; Start 01/26/18 at 09:00 Baclofen (Lioresal) 10 mg TID PO Last administered on 01/26/18at 13:32; Admin Dose 10 MG; Start 01/25/18 at 21:00 Carvedilol (Coreg) 12.5 mg BID PO Last administered on 01/26/18at 08:40; Admin Dose 12.5 MG; Start 01/25/18 at 21:00 Docusate Sodium (Colace) 100 mg BID PRN PO CONSTIPATION; Start 01/25/18 at 15:30 Duloxetine HCl (Cymbalta) 30 mg DAILY PO Last administered on 01/26/18 08:39; Admin Dose 30 MG; Start 01/26/18 at 09:00 Famotidine (Pepcid) 20 mg BID PO Last administered on 01/26/18 08:39; Admin Dose 20 MG; Start 01/25/18 at 21:00 Folic Acid (Folic Acid) 1 mg DAILY PO Last administered on 01/26/18 08:38; Admin Dose 1 MG; Start 01/26/18 at 09:00 Gabapentin (Neurontin) 100 mg BID PO Last administered on 01/26/18 08:38; Admin Dose 100 MG; Start 01/25/18 at 21:00 Isoniazid (Isoniazid) 300 mg DAILY PO Last administered on 01/26/18 08:39; Admin Dose 300 MG; Start 01/26/18 at 09:00 Magnesium Oxide (Mag-Ox 400) 400 mg BID PO Last administered on 01/26/18 0 8:39; Admin Dose 400 MG; Start 01/25/18 at 21:00 Nystatin 1 applic BID TOP Last administered on 01/26/18 08:40; Admin Dose 1 APPLIC; Start 01/25/18 at 21:00 Pyridoxine HCl (Vitamin B6) 50 mg DAILY PO Last administered on 01/26/18 08:39; Admin Dose 50 MG; Start 01/26/18 at 09:00 Rifampin (Rifampin) 600 mg DAILY PO Last administered on 01/26/18 08:38; Admin Dose 600 MG; Start 01/26/18 at 09:00 Risperidone (Risperdal) 1 mg QHS PO Last administered on 01/25/18 22:11; Admin Dose 1 MG; Start 01/25/18 at 21:00 Zonisamide (Zonegran) 300 mg QHS PO Last administered on 01/25/18 22:12; Admin Dose 300 MG; Start 01/25/18 at 21:00 Vancomycin HCl (Vanco Iv Per Pharmacy) VANCOMYCIN PER PHARMACY PER PROTOCOL XX ; Start 01/25/18 at 15:30 Eye Lubricant (Artificial Tears Oph) 1 drop Q8 BOTH EYES Last administered on 01/26/18at 13:32; Admin Dose 1 DROP; Start 01/25/18 at 22:00 Vancomycin HCl 1.25 gm/Sodium Chloride 250 ml @ 83.333 mls/ hr Q12H IVPB Last administered on 01/26/18at 09:39; Admin Dose 83.333 MLS/HR; Start 01/25/18 at 22:00 Miscellaneous Information (Pending Santyl Order For Wound Care) This patient woody... PRN PRN XX wound; Start 01/25/18 at 16:30 Miscellaneous Information (*Rx Drug Level Order Reminder*) 1 ONCE ONCE XX ; Start 01/27/18 at 09:00; Stop 01/27/18 at 09:01 Vitamin A/Vitamin D (Vitamin A & D Oint) 1 applic BID TOP ; Start 01/26/18 at 21:00 Hydrocortisone (Hydrocortisone 1% Cr) 1 applic BID TOP ; Start 01/26/18 at 21:00 Results Result Diagram: 01/26/18 0555 01/26/18 0555 Results 24 hrs Laboratory Tests Test 01/26/18 05:55 White Blood Count 3.3 #L Red Blood Count 3.00 L Hemoglobin 7.7 L Hematocrit 25.0 L Mean Corpuscular Volume 83.3 Mean Corpuscular Hemoglobin 25.7 L Mean Corpuscular Hemoglobin Concent 30.8 L Red Cell Distribution Width 15.7 H Platelet Count 352 Mean Platelet Volume 9.1 Immature Granulocytes % 0.300 Neutrophils % 50.5 Lymphocytes % 25.2 Monocytes % 11.6 H Eosinophils % 11.2 H Basophils % 1.2 Nucleated Red Blood Cells % 0.0 Immature Granulocytes # 0.010 Neutrophils # 1.7 Lymphocytes # 0.8 Monocytes # 0.4 Eosinophils # 0.4 Basophils # 0.0 Nucleated Red Blood Cells # 0.0 Sodium Level 140 Potassium Level 4.2 Chloride Level 114 H Carbon Dioxide Level 20 L Anion Gap 6 Blood Urea Nitrogen 7 Creatinine 0.79 Est Glomerular Filtrat Rate mL/min > 60 Glucose Level 90 Hemoglobin A1c 5.7 Calcium Level 8.3 L Phosphorus Level 3.6 Magnesium Level 2.3 Iron Level 17 L Total Iron Binding Capacity 152 L Percent Iron Saturation 11 L Ferritin 227.0 LUKE BONILLA DPM Jan 26, 2018 20:01
[2018-01-26] MEDS: HYDROCORTISONE 1% 28 GM CR TOP SCH (21:32)
[2018-01-26] MEDS: VITAMIN A & D 5 GM OINT PACKET TOP SCH (21:32)
[2018-01-26] MEDS: RISPERIDONE 1 MG TAB PO SCH (21:33)
[2018-01-26] MEDS: ZONISAMIDE 100 MG CAP PO SCH (21:33)
[2018-01-27 02:00] VITALS: BP 120/61; PULSE 85; RESP 18
[2018-01-27] MEDS: ARTIFICIAL TEARS 15 ML OPH BOTH EYES SCH ×3 (05:16→21:21)
--- NOTE | 2018-01-27 06:40 | NUR ---
No acute changes during shift. Pt safe and free from injury. Pt slept through night. Incontinence check and repositioning Q2H. Pt denies any pain or discomfort. Wound care done. Pt currently comfortable in bed watching television. Bed alarm on, call light within reach. Will continue to monitor.
[2018-01-27 08:00] VITALS: BP 137/76; PULSE 73; RESP 18
[2018-01-27] MEDS: BALSAM PERU/CASTOR OIL 60 GM TUBE TOP SCH ×2 (09:00→09:32)
[2018-01-27] MEDS: DULOXETINE 30 MG CAP DR PO SCH (09:25)
[2018-01-27] MEDS: FOLIC ACID 1 MG TAB PO SCH (09:26)
[2018-01-27] MEDS: MAGNESIUM OXIDE 400 MG TAB PO SCH ×2 (09:27→21:12)
[2018-01-27] MEDS: ISONIAZID 300 MG TAB PO SCH (09:27)
[2018-01-27] MEDS: BACLOFEN 10 MG TAB PO SCH ×3 (09:27→21:12)
[2018-01-27] MEDS: GABAPENTIN 100 MG CAP PO SCH ×2 (09:27→21:12)
[2018-01-27] MEDS: ALLOPURINOL 100 MG TAB PO SCH (09:28)
[2018-01-27] MEDS: PYRIDOXINE 50 MG TAB PO SCH (09:28)
[2018-01-27] MEDS: RIFAMPIN 300 MG CAP PO SCH (09:28)
[2018-01-27] MEDS: VITAMIN A & D 5 GM OINT PACKET TOP SCH ×2 (09:29→21:12)
[2018-01-27] MEDS: HYDROCORTISONE 1% 28 GM CR TOP SCH ×2 (09:29→21:23)
[2018-01-27] MEDS: NYSTATIN 15 GM POWDER BTL TOP SCH ×2 (09:33→21:13)
[2018-01-27] MEDS: morphine 2 MG INJ IV PRN ×2 (09:34→14:07)
[2018-01-27] MEDS: FAMOTIDINE 20 MG TAB PO SCH ×2 (09:35→21:11)
[2018-01-27] MEDS: VANCOMYCIN 1.25 GM in SOD CHLORIDE 0.9% 250 ML IVPB SCH (10:00)
--- NOTE | 2018-01-27 10:45 | NUR ---
Spoke with Pharmacist, Vancomycin level 24.4. She will hold the vancomycin and adjust the schedule.
--- NOTE | 2018-01-27 11:17 | PN ---
Date/Time of Note Date/Time of Note DATE: 01/27/18 TIME: 11:14 Assessment/Plan VTE Prophylaxis Risk score (from Nsg)>0 risk: 6 SCD applied (from Nsg): Yes Pharmacological prophylaxis: LMWH Lines/Catheters IV Catheter Type (from Nrsg): Peripheral IV Urinary Cath still in place: Yes Reason Cath still needed: urinary retention, other (indicate) (bedbound/paraplegic) Assessment/Plan Hospital Course SUBJECTIVE: No acute overnight episodes. OBJECTIVE: Vital signs-see below PHYSICAL EXAM: Constitutional: Bedbound male, not in acute distress. Psych: nl mood/affect, no complaints Head: atraumatic, normocephalic Eyes: nl conjunctiva, nl sclera ENMT: mucosa pink and moist, nl external ears & nose Neck: non-tender, supple Respiratory: clear to auscultation, normal air movement Cardiovascular: nl pulses, regular rate and rhythm Gastrointestinal: non-tender, soft, bowel sounds active in all 4 quadrants. Musculoskeletal/extremities: Paraplegic. Normal pulses,no cyanosis, no edema. Neurological: Alert oriented 3,nl speech, nl strength Skin: Bilateral heel with ulcers, covered with dressing. No oozing noted on dressing. Nl turgor ASSESSMENT/PLAN: Very unfortunate 57-year-old male with a history of paraplegia secondary to spinal cord syndrome 6 months ago, who also [facility] in a jail, presented to the emergency room with worsening bilateral heel ulcers with foul-smelling drainage 1. Bilateral heel Decub ulcers -Patient is now status post excisional debridement of bilateral heel decubitus. No evidence of osteomyelitis. -Continue wound care per podiatry recommendation with Dakin's irrigation/Xeroform/Kerlix dressing. -Continue IV antibiotics. -Follow-up wound cultures if any. 2. Paraplegia secondary to spinal disorder and back surgery 6 months ago -Exact nature of disorder and surgery unclear -Continue baclofen 3. Likely latent TB per home meds -Continue isoniazid 4. Depression -Continue home Cymbalta 5. Hypertension -Continue Coreg 6. Debility secondary to #2. -Patient resides in a jail. 7. Chronic anemia with mild iron deficiency. -Labile H&H, no indication for transfuse. Will give low-dose oral iron supplementation. Prophylaxis: Lovenox/Pepcid Diet: Regular CODE STATUS: Full code Disposition: Continue IV antibiotics. Follow-up wound cultures. Patient does not want to go back to the jail where he came from as such, I have requested O grievance manager to find alternative snf facility available for him. Follow-up podiatry recommendations. Patient was seen in collaboration with Dr. Awad. Exam/Review of Systems Vital Signs Vitals Vital Signs Date Temp Pulse Resp B/P (MAP) Pulse Ox O2 O2 Flow FiO2 Time Delivery Rate 01/27/18 97.7 73 18 137/76 99 08:00 (96) 01/26/18 Room Air 14:08 Intake and Output 01/26/18 01/26/18 01/27/18 1515:00 23:00 07:00 IntakeIntake Total 370 ml 600 ml 250 ml OutputOutput Total 800 ml BalanceBalance 370 ml -200 ml 250 ml Medications Medications Current Medications IV Flush (NS 3 ml) 3 ml PER PROTOCOL IV ; Start 01/25/18 at 15:30 Ondansetron HCl (Zofran Inj) 4 mg Q6H PRN IV NAUSEA AND/OR VOMITING; Start 01/25/18 at 15:30 Acetaminophen (Tylenol Tab) 650 mg Q6H PRN PO PAIN LEVEL 1-3 OR FEVER; Start 01/25/18 at 15:30 Acetaminophen/ Hydrocodone Bitart ([place] (5/325)) 1 tab Q6H PRN PO MODERATE PAIN LEVEL 4-6; Start 01/25/18 at 15:30 Morphine Sulfate (morphine) 2 mg Q4H PRN IV SEVERE PAIN LEVEL 7-10 Last administered on 01/27/18at 09:34; Admin Dose 2 MG; Start 01/25/18 at 15:30 Docusate Sodium (Colace) 100 mg Q12H PRN PO CONSTIPATION; Start 01/25/18 at 15:30 Zolpidem Tartrate (Ambien) 5 mg QHS PRN PO SLEEP; Start 01/25/18 at 15:30 Allopurinol (Zyloprim) 100 mg DAILY PO Last administered on 01/27/18at 09:28; Admin Dose 100 MG; Start 01/26/18 at 09:00 Baclofen (Lioresal) 10 mg TID PO Last administered on 01/27/18at 09:27; Admin Dose 10 MG; Start 01/25/18 at 21:00 Carvedilol (Coreg) 12.5 mg BID PO Last administered on 01/27/18 09:25; Admin Dose 12.5 MG; Start 01/25/18 at 21:00 Docusate Sodium (Colace) 100 mg BID PRN PO CONSTIPATION; Start 01/25/18 at 15:30 Duloxetine HCl (Cymbalta) 30 mg DAILY PO Last administered on 01/27/18 09:25; Admin Dose 30 MG; Start 01/26/18 at 09:00 Famotidine (Pepcid) 20 mg BID PO Last administered on 01/27/18 09:35; Admin Dose 20 MG; Start 01/25/18 at 21:00 Folic Acid (Folic Acid) 1 mg DAILY PO Last administered on 01/27/18 09:26; Admin Dose 1 MG; Start 01/26/18 at 09:00 Gabapentin (Neurontin) 100 mg BID PO Last administered on 01/27/18 09:27; Admin Dose 100 MG; Start 01/25/18 at 21:00 Isoniazid (Isoniazid) 300 mg DAILY PO Last administered on 01/27/18 09:27; Admin Dose 300 MG; Start 01/26/18 at 09:00 Magnesium Oxide (Mag-Ox 400) 400 mg BID PO Last administered on 01/27/18 09: 27; Admin Dose 400 MG; Start 01/25/18 at 21:00 Nystatin 1 applic BID TOP Last administered on 01/27/18 09:33; Admin Dose 1 APPLIC; Start 01/25/18 at 21:00 Pyridoxine HCl (Vitamin B6) 50 mg DAILY PO Last administered on 01/27/18 09:28; Admin Dose 50 MG; Start 01/26/18 at 09:00 Rifampin (Rifampin) 600 mg DAILY PO Last administered on 01/27/18 09:28; Admin Dose 600 MG; Start 01/26/18 at 09:00 Risperidone (Risperdal) 1 mg QHS PO Last administered on 01/26/18 21:33; Admin Dose 1 MG; Start 01/25/18 at 21:00 Zonisamide (Zonegran) 300 mg QHS PO Last administered on 01/26/18 21:33; Admin Dose 300 MG; Start 01/25/18 at 21:00 Vancomycin HCl (Vanco Iv Per Pharmacy) VANCOMYCIN PER PHARMACY PER PROTOCOL XX ; Start 01/25/18 at 15:30 Eye Lubricant (Artificial Tears Oph) 1 drop Q8 BOTH EYES Last administered on 01/26/18at 21:31; Admin Dose 1 DROP; Start 01/25/18 at 22:00 Vancomycin HCl 1.25 gm/Sodium Chloride 250 ml @ 83.333 mls/ hr Q12H IVPB Last administered on 01/26/18at 21:31; Admin Dose 83.333 MLS/HR; Start 01/25/18 at 22:00; Status Hold Miscellaneous Information (Pending YouCastryl Order For Wound Care) This patient woody... PRN PRN XX wound; Start 01/25/18 at 16:30 Vitamin A/Vitamin D (Vitamin A & D Oint) 1 applic BID TOP Last administered on 01/27/18at 09:29; Admin Dose 1 APPLIC; Start 01/26/18 at 21:00 Hydrocortisone (Hydrocortisone 1% Cr) 1 applic BID TOP Last administered on 01/27/18at 09:29; Admin Dose 1 APPLIC; Start 01/26/18 at 21:00 Results Result Diagram: 01/27/1892201/27/1823 Results 24 hrs Laboratory Tests Test 01/27/18 09:23 White Blood Count 3.8 L Red Blood Count 3.23 L Hemoglobin 8.4 L Hematocrit 26.8 L Mean Corpuscular Volume 83.0 Mean Corpuscular Hemoglobin 26.0 L Mean Corpuscular Hemoglobin Concent 31.3 L Red Cell Distribution Width 15.6 H Platelet Count 419 H Mean Platelet Volume 8.7 Immature Granulocytes % 0.300 Neutrophils % 57.8 Lymphocytes % 23.3 Monocytes % 7.3 Eosinophils % 10.5 H Basophils % 0.8 Nucleated Red Blood Cells % 0.0 Immature Granulocytes # 0.010 Neutrophils # 2.2 Lymphocytes # 0.9 Monocytes # 0.3 Eosinophils # 0.4 Basophils # 0.0 Nucleated Red Blood Cells # 0.0 Sodium Level 142 Potassium Level 4.2 Chloride Level 114 H Carbon Dioxide Level 20 L Anion Gap 8 Blood Urea Nitrogen 6 L Creatinine 0.75 Est Glomerular Filtrat Rate mL/min > 60 Glucose Level 138 # Calcium Level 8.9 Vancomycin Level Trough 24.4 *H LIVIA ADAME V. SPEECH COMMUNICATION INSTRUCTOR Jan 27, 2018 11:17
--- NOTE | 2018-01-27 11:32 | NUR ---
Vancomycin per Rx Vancomycin tr = 24.4 SCr 0.75 DC Vancomycin 1.25 gm IV q12h Change Vancomycin to 1.5gm IV q24h - start tonight
[2018-01-27 14:40] VITALS: BP 122/64; PULSE 82; RESP 18
[2018-01-27] MEDS: COLLAGENASE 5 GM (UD JAR) TOP SCH (17:30)
[2018-01-27] MEDS: SODIUM HYPOCHLORITE (1/40) 1 APPLIC BTL IRR SCH (18:30)
--- NOTE | 2018-01-27 19:00 | NUR ---
Patient on bed rest, alert and oriented X 3. Vital signs stable. Patient turned every 2 hours. Sacrum dressing changed. Mark Lower extremities dressing changed by Dr. Adan. Patient continue with IV antibiotics. Bilateral Heel protectors in place. Will continue with care plan.
--- NOTE | 2018-01-27 19:41 | CONS ---
DATE OF ADMISSION: 01/26/2018 DATE OF CONSULTATION: 01/27/2018 SUBJECTIVE FINDINGS: The patient is being followed for bilateral foot ulcerations. He is status pos t excisional debridement. The patient is without any acute complaints. PHYSICAL EXAMINATION: VITAL SIGNS: Temperature is 98, pulse is 82, respiratory 18, blood pressure is 122/64, pulse ox 98 a t room air. EXTREMITIES: Wound cultures gram-negative rods, 2+ pitting edema. Right posterior heel with ulcerat ion of unstageable depth measuring 4 x 5 cm. Left lateral ankle ulceration 1 x 0.8 x 0.3 cm with mix ed granular and necrotic wound base. No exposed bone. Absent protective sensation. LABORATORIES: WBC 3.8, hemoglobin 8.4, hematocrit 26.8, platelets 419. ASSESSMENT: 1. Cellulitis. 2. Unstageable heel decubitus right heel. 3. Pressure ulcer left lateral ankle stage III. 4. Paraplegia. 5. Peripheral neuropathy. 6. Depression. PLAN: Patient was seen and evaluated. Wounds were irrigated. Patient education provided. Continue current therapy. The patient did receive heel cushions and recommend offloading. Dictated By: JAZMIN GLEASON DPM RB/NTS Conf#: [id number] DID#: [id number] CC: ALEKSANDR GALAVIZ MD;*End*
[2018-01-27 20:24] VITALS: BP 130/74; PULSE 102; RESP 18
[2018-01-27 21:00] VITALS: PULSE 88
[2018-01-27] MEDS ORDERED: VANCOMYCIN 1.5 GM in SOD CHLORIDE 0.9% 250 ML IVPB SCH (21:00)
[2018-01-27] MEDS: DOCUSATE SODIUM 100 MG CAP PO SCH (21:11)
[2018-01-27] MEDS: RISPERIDONE 1 MG TAB PO SCH (21:12)
[2018-01-27] MEDS: ZONISAMIDE 100 MG CAP PO SCH (21:12)
[2018-01-27] MEDS: FERROUS FUMARATE (SR) TAB PO SCH (21:12)
[2018-01-28 02:00] VITALS: BP 91/63; PULSE 92; RESP 18
--- NOTE | 2018-01-28 05:24 | NUR ---
Patient is alert and oriented x2-3, forgetful. Repositioned Q2H, tolerated well. Benavidez catheter patent and draining. Denies any pain. Wound care provided as ordered. Fall precautions in place. Hourly rounding provided. All needs met. Will endorse to upcoming nurse accordingly.
[2018-01-28] MEDS: ARTIFICIAL TEARS 15 ML OPH BOTH EYES SCH ×3 (06:22→21:19)
[2018-01-28 08:32] VITALS: BP 138/79; PULSE 75; RESP 17
[2018-01-28] MEDS: SODIUM HYPOCHLORITE (1/40) 1 APPLIC BTL IRR SCH (09:00)
[2018-01-28] MEDS: BALSAM PERU/CASTOR OIL 60 GM TUBE TOP SCH (09:00)
[2018-01-28] MEDS: ALLOPURINOL 100 MG TAB PO SCH (09:05)
[2018-01-28] MEDS: FERROUS FUMARATE (SR) TAB PO SCH ×2 (09:05→21:03)
[2018-01-28] MEDS: FAMOTIDINE 20 MG TAB PO SCH ×2 (09:05→22:05)
[2018-01-28] MEDS: RIFAMPIN 300 MG CAP PO SCH (09:05)
[2018-01-28] MEDS: MAGNESIUM OXIDE 400 MG TAB PO SCH ×2 (09:06→21:03)
[2018-01-28] MEDS: DULOXETINE 30 MG CAP DR PO SCH (09:06)
[2018-01-28] MEDS: ISONIAZID 300 MG TAB PO SCH (09:06)
[2018-01-28] MEDS: DOCUSATE SODIUM 100 MG CAP PO SCH ×2 (09:06→21:03)
[2018-01-28] MEDS: BACLOFEN 10 MG TAB PO SCH ×3 (09:06→21:03)
[2018-01-28] MEDS: FOLIC ACID 1 MG TAB PO SCH (09:06)
[2018-01-28] MEDS: GABAPENTIN 100 MG CAP PO SCH ×2 (09:07→21:03)
[2018-01-28] MEDS: PYRIDOXINE 50 MG TAB PO SCH (09:07)
[2018-01-28] MEDS: ENOXAPARIN 40 MG/0.4 ML SYG SC SCH (09:10)
[2018-01-28] MEDS: HYDROCORTISONE 1% 28 GM CR TOP SCH ×2 (09:12→21:08)
[2018-01-28] MEDS: VITAMIN A & D 5 GM OINT PACKET TOP SCH ×2 (09:13→21:04)
[2018-01-28] MEDS: COLLAGENASE 5 GM (UD JAR) TOP SCH (09:13)
[2018-01-28] MEDS: HYDROCODONE/APAP (5/325) TAB PO PRN ×3 (09:18→22:50)
[2018-01-28] MEDS: NYSTATIN 15 GM POWDER BTL TOP SCH ×2 (10:17→21:00)
--- NOTE | 2018-01-28 11:54 | PN ---
Date/Time of Note Date/Time of Note DATE: 01/28/18 TIME: 11:54 Assessment/Plan VTE Prophylaxis Risk score (from Nsg)>0 risk: 6 SCD applied (from Nsg): Yes Pharmacological prophylaxis: heparin Lines/Catheters IV Catheter Type (from Nrs): Saline Lock Assessment/Plan Hospital Course 57 y/o paraplegic M patient presents to the floor with bilateral pressure heel wounds. Patient states they have been present for over two weeks. Patient states he was at another facility and his ex- also helps with the dressing changes and noticed worsening signs of the wound with foul smell. Patient denies f/c/n/v no chest pain or shortness of breath. Assessment/Plan 1) B/l decubitus heel ulcers right unstageable, Left stage 1 2) Left decubitus ankle ulcer stage 2 3) Paraplegia b/l LE 4) Peripheral neuropathy 5) HTN 6) Depression 7) Latent TB Plan: Performed excisional debridement of bilateral heel decubitus wounds with scissors, pickups, and scalpel blade. Skin and subcutaneous tissue was excisionally debrided and wounds were irrigated with copious saline solution. Right foot wound cultures showing gram neg kamar. 20cm2 area of debridement performed. Daily wound dressing changes with dakins irrigation and dress with santyl, xeroform, and kerlix. Wound care orders are in place. Emphasized to nurse strict offloading of heels with pillows. X-rays reviewed and did not appr eciate sign of osteomyelitis. Continue with IV abx as per recommendations. Non- invasive studies ordered: No focal hemodynamically significant stenosis in either lower extremity. Monitor while in house. Medical decisions, treatment and plan coordinated with Dr. Courtney. Subjective 24 Hr Interval Summary Free Text/Dictation No acute events overnight. Exam/Review of Systems Vital Signs Vitals Vital Signs Date Temp Pulse Resp B/P (MAP) Pulse Ox O2 O2 Flow FiO2 Time Delivery Rate 01/28/18 98.2 75 17 138/79 100 Room Air 08:32 (98) Intake and Output 01/27/18 01/27/18 01/28/18 1515:00 23:00 07:00 IntakeIntake Total 800 ml 100 ml OutputOutput Total 900 ml 800 ml 600 ml BalanceBalance -900 ml 0 ml -500 ml Exam Palpable pedal pulses 2+ pitting edema Right foot full thickness ulcer with stable central necrotic wound base and surrounding granular tissue. No eschar formation, indeterminate depth wound margins measures 4 x 5 cm. No purulence expressed, no probing to bone, no proximal streaking. Left heel ulcer with mixed partial and full thickness wound granular wound base no probing to bone, no proximal streaking, no purulence expressed Left lateral malleolus with 1.0 x 0.8 x 0.3cm mixed granular and necrotic wound base which does not probe to bone, no proximal streaking, no purulence. Absent muscle strength to the lower extremity Absent protective sensations to the bilateral lower extremities. Medications Medications Current Medications IV Flush (NS 3 ml) 3 ml PER PROTOCOL IV ; Start 01/25/18 at 15:30 Ondansetron HCl (Zofran Inj) 4 mg Q6H PRN IV NAUSEA AND/OR VOMITING; Start 01/25/18 at 15:30 Acetaminophen (Tylenol Tab) 650 mg Q6H PRN PO PAIN LEVEL 1-3 OR FEVER; Start 01/25/18 at 15:30 Acetaminophen/ Hydrocodone Bitart ([place] (5/325)) 1 tab Q6H PRN PO MODERATE PAIN LEVEL 4-6 Last administered on 01/28/18at 09:18; Admin Dose 1 TAB; Start 01/25/18 at 15:30 Morphine Sulfate (morphine) 2 mg Q4H PRN IV SEVERE PAIN LEVEL 7-10 Last administered on 01/27/18at 14:07; Admin Dose 2 MG; Start 01/25/18 at 15:30 Zolpidem Tartrate (Ambien) 5 mg QHS PRN PO SLEEP; Start 01/25/18 at 15:30 Allopurinol (Zyloprim) 100 mg DAILY PO Last administered on 01/28/18at 09:05; Admin Dose 100 MG; Start 01/26/18 at 09:00 Baclofen (Lioresal) 10 mg TID PO Last administered on 01/28/18at 09:06; Admin Dose 10 MG; Start 01/25/18 at 21:00 Carvedilol (Coreg) 12.5 mg BID PO Last administered on 01/28/18at 09:07; Admin Dose 12.5 MG; Start 01/25/18 at 21:00 Duloxetine HCl (Cymbalta) 30 mg DAILY PO Last administered on 01/28/18 09:06; Admin Dose 30 MG; Start 01/26/18 at 09:00 Famotidine (Pepcid) 20 mg BID PO Last administered on 01/28/18 09:05; Admin Dose 20 MG; Start 01/25/18 at 21:00 Folic Acid (Folic Acid) 1 mg DAILY PO Last administered on 01/28/18 09:06; Admin Dose 1 MG; Start 01/26/18 at 09:00 Gabapentin (Neurontin) 100 mg BID PO Last administered on 01/28/18 09:07; Admin Dose 100 MG; Start 01/25/18 at 21:00 Isoniazid (Isoniazid) 300 mg DAILY PO Last administered on 01/28/18 09:06; Admin Dose 300 MG; Start 01/26/18 at 09:00 Magnesium Oxide (Mag-Ox 400) 400 mg BID PO Last administered on 01/28/18 09:06; Admin Dose 400 MG; Start 01/25/18 at 21:00 Nystatin 1 applic BID TOP Last administered on 01/28/18 10:17; Admin Dose 1 APPLIC; Start 01/25/18 at 21:00 Pyridoxine HCl (Vitamin B6) 50 mg DAILY PO Last administered on 01/28/18 09:07; Admin Dose 50 MG; Start 01/26/18 at 09:00 Rifampin (Rifampin) 600 mg DAILY PO Last administered on 01/28/18 09:05; Admin Dose 600 MG; Start 01/26/18 at 09:00 Risperidone (Risperdal) 1 mg QHS PO Last administered on 01/27/18 21:12; Admin Dose 1 MG; Start 01/25/18 at 21:00 Zonisamide (Zonegran) 300 mg QHS PO Last administered on 01/27/18 21:12; Admin Dose 300 MG; Start 01/25/18 at 21:00 Eye Lubricant (Artificial Tears Oph) 1 drop Q8 BOTH EYES Last administered on 01/28/18 06:22; Admin Dose 1 DROP; Start 01/25/18 at 22:00 Miscellaneous Information (Pending [facility] Order For Wound Care) This patient woody... PRN PRN XX wound; Start 01/25/18 at 16:30 Vitamin A/Vitamin D (Vitamin A & D Oint) 1 applic BID TOP Last administered on 01/28/18 09:13; Admin Dose 1 APPLIC; Start 01/26/18 at 21:00 Docusate Sodium/ Ferrous Fumarate (Sangita-Sequels) 1 tab BID PO Last administered on 01/28/18at 09:05; Admin Dose 1 TAB; Start 01/27/18 at 21:00 Docusate Sodium (Colace) 200 mg BID PO Last administered on 01/28/18 09:06; Admin Dose 200 MG; Start 01/27/18 at 21:00 Enoxaparin Sodium (Lovenox) 40 mg DAILY SC Last administered on 01/28/18 09:10; Admin Dose 40 MG; Start 01/28/18 at 09:00 Sodium Hypochlorite (Dakin'S (Dilute )) 1 applic DAILY IRR ; Start 01/27/18 at 18:30 Collagenase (Santyl) 1 applic DAILY TOP Last administered on 01/28/18at 09:13; Admin Dose 1 APPLIC; Start 01/27/18 at 17:30 Hydrocortisone (Hydrocortisone 1% Cr) 1 applic BID TOP Last administered on 01/28/18at 09:12; Admin Dose 1 APPLIC; Start 01/27/18 at 21:19 Results Result Diagram: 01/27/1892201/27/18922 LUKE BONILLA DPM Jan 28, 2018 11:54
--- NOTE | 2018-01-28 12:00 | NUR ---
SS Note: Consult Pt referred by Milking System Installer for possible financial issues and order for SW to see pt was placed. The patient is a 57-year-old male with a history of paraplegia reportedly for the last 6 months secondary to spinal cord syndrome who presented to [facility] with ulcers on both his feet, per record. SW met with pt at bedside and spoke to pt in his primary language [place]. Pt alert and oriented x4. He was very pleasant and appeared to be coping appropriately with admission. Pt is and has one adult and one minor child. Pt verbally appointed his ex-, Seun Johnson , as surrogate decision maker/spokesperson. Pt d/c from [facility] to [facility] 1 month ago. Pt bedbound and total care. Pt has [employer] insurance. Pt denied having financial concerns at this time and stated he was joking when they asked him if he wanted anything else he said money. SW introduced self and the role of the social work coordinator. SW provided support and reassurance. SW discussed d/c plan with pt. Pt stated ex- and him are unhappy with care at [facility] and requesting different placement. SW relayed information to CM who stated she will attempt SNF placement. Addendum: 01/28/18 at 1537 by LEO CHAMPION MSW Pt requested for social work coordinator to speak with his ex- Seun regarding placement. Seun stated pt is quadriplegic and bedbound and requires higher level. She feels [facility] is not equipped to care for quadriplegic pt. SW informed her this freelance copywriter has notified JEAN who plans to refer pt to a SNF. She requested for to also try with [facility] near [place]. JEAN aware.
--- NOTE | 2018-01-28 12:19 | NUR ---
SPOKE WITH PATIENT ALERT AND VERIFIED HE IS A RESIDENT OF [facility] TEL [phone] CONFIRMED BY PATRICK BRADFORD IN THAT FACILITY ,REQUESTED CLINICALS TO BE FAXED WHICH I DID TO [phone]. ROOM 137 NOTIFIED LIVIA PATINO. Addendum: 01/28/18 at 1224 by GENOVEVA GONSALES CM Amended: Links added. Addendum: 01/28/18 at 1251 by GENOVEVA GONSALES CM PATIENT WILL NEED WOUND CARE, REFERRED TO [facility] AWAITS ACCEPTANCE. Addendum: 01/29/18 at 0902 by GENOVEVA GONSALES CM REFERRED TO [facility], SISTER WANTS PATIENT TO GO TO [facility] [phone]
--- NOTE | 2018-01-28 13:29 | PN ---
Date/Time of Note Date/Time of Note DATE: 01/28/18 TIME: 13:27 Assessment/Plan VTE Prophylaxis Risk score (from Nsg)>0 risk: 6 SCD applied (from Nsg): Yes Pharmacological prophylaxis: LMWH Lines/Catheters IV Catheter Type (from Nrsg): Saline Lock Assessment/Plan Hospital Course SUBJECTIVE: No acute overnight episodes. OBJECTIVE: Vital signs-see below PHYSICAL EXAM: Constitutional: Bedbound male, not in acute distress. Psych: nl mood/affect, no complaints Head: atraumatic, normocephalic Eyes: nl conjunctiva, nl sclera ENMT: mucosa pink and moist, nl external ears & nose Neck: non-tender, supple Respiratory: clear to auscultation, normal air movement Cardiovascular: nl pulses, regular rate and rhythm Gastrointestinal: non-tender, soft, bowel sounds active in all 4 quadrants. Musculoskeletal/extremities: Paraplegic. Normal pulses,no cyanosis, no edema. Neurological: Alert oriented 3,nl speech, nl strength Skin: Bilateral heel with ulcers, covered with dressing. No oozing noted on dressing. Nl turgor ASSESSMENT/PLAN: Very unfortunate 57-year-old male with a history of paraplegia secondary to spinal cord syndrome 6 months ago, who also resides in a half-way, presented to the emergency room with worsening bilateral heel ulcers with foul-smelling drainage 1. Bilateral heel Decub ulcers -status post excisional debridement of bilateral heel decubitus. No evidence of osteomyelitis. -Wound culture grew enterococcus, will DC vancomycin and start patient on Levaquin based on sensitivity. -Continue wound care per podiatry recommendation with Dakin's irrigation/Xeroform/Kerlix dressing. 2. Paraplegia secondary to spinal disorder and back surgery 6 months ago -Exact nature of disorder and surgery unclear -Continue baclofen 3. Likely latent TB per home meds -Continue isoniazid 4. Depression -Continue home Cymbalta 5. Hypertension -Continue Coreg 6. Debility secondary to #2. -Patient resides in a half-way. 7. Chronic anemia with mild iron deficiency. -Stable H&H. Continue oral iron replacement. Prophylaxis: Lovenox/Pepcid Diet: Regular CODE STATUS: Full code Disposition: DC planning per podiatry recommendations. Patient was seen in collaboration with Dr. Awad. Exam/Review of Systems Vital Signs Vitals Vital Signs Date Temp Pulse Resp B/P (MAP) Pulse Ox O2 O2 Flow FiO2 Time Delivery Rate 01/28/18 98.2 75 17 138/79 100 Room Air 08:32 (98) Intake and Output 01/27/18 01/27/18 01/28/18 1515:00 23:00 07:00 IntakeIntake Total 800 ml 100 ml OutputOutput Total 900 ml 800 ml 600 ml BalanceBalance -900 ml 0 ml -500 ml Medications Medications Current Medications IV Flush (NS 3 ml) 3 ml PER PROTOCOL IV ; Start 01/25/18 at 15:30 Ondansetron HCl (Zofran Inj) 4 mg Q6H PRN IV NAUSEA AND/OR VOMITING; Start 01/25/18 at 15:30 Acetaminophen (Tylenol Tab) 650 mg Q6H PRN PO PAIN LEVEL 1-3 OR FEVER; Start 01/25/18 at 15:30 Acetaminophen/ Hydrocodone Bitart ([place] (5/325)) 1 tab Q6H PRN PO MODERATE PAIN LEVEL 4-6 Last administered on 01/28/18at 09:18; Admin Dose 1 TAB; Start 01/25/18 at 15:30 Morphine Sulfate (morphine) 2 mg Q4H PRN IV SEVERE PAIN LEVEL 7-10 Last administered on 01/27/18at 14:07; Admin Dose 2 MG; Start 01/25/18 at 15:30 Zolpidem Tartrate (Ambien) 5 mg QHS PRN PO SLEEP; Start 01/25/18 at 15:30 Allopurinol (Zyloprim) 100 mg DAILY PO Last administered on 01/28/18at 09:05; Admin Dose 100 MG; Start 01/26/18 at 09:00 Baclofen (Lioresal) 10 mg TID PO Last administered on 01/28/18at 09:06; Admin Dose 10 MG; Start 01/25/18 at 21:00 Carvedilol (Coreg) 12.5 mg BID PO Last administered on 01/28/18at 09:07; Admin Dose 12.5 MG; Start 01/25/18 at 21:00 Duloxetine HCl (Cymbalta) 30 mg DAILY PO Last administered on 01/28/18at 09:06; Admin Dose 30 MG; Start 01/26/18 at 09:00 Famotidine (Pepcid) 20 mg BID PO Last administered on 01/28/18 09:05; Admin Dose 20 MG; Start 01/25/18 at 21:00 Folic Acid (Folic Acid) 1 mg DAILY PO Last administered on 01/28/18 09:06; Admin Dose 1 MG; Start 01/26/18 at 09:00 Gabapentin (Neurontin) 100 mg BID PO Last administered on 01/28/18 09:07; Admin Dose 100 MG; Start 01/25/18 at 21:00 Isoniazid (Isoniazid) 300 mg DAILY PO Last administered on 01/28/18 09:06; Admin Dose 300 MG; Start 01/26/18 at 09:00 Magnesium Oxide (Mag-Ox 400) 400 mg BID PO Last administered on 01/28/18 09:06; Admin Dose 400 MG; Start 01/25/18 at 21:00 Nystatin 1 applic BID TOP Last administered on 01/28/18 10:17; Admin Dose 1 APPLIC; Start 01/25/18 at 21:00 Pyridoxine HCl (Vitamin B6) 50 mg DAILY PO Last administered on 01/28/18 09:07; Admin Dose 50 MG; Start 01/26/18 at 09:00 Rifampin (Rifampin) 600 mg DAILY PO Last administered on 01/28/18 09:05; Admin Dose 600 MG; Start 01/26/18 at 09:00 Risperidone (Risperdal) 1 mg QHS PO Last administered on 01/27/18 21:12; Admin Dose 1 MG; Start 01/25/18 at 21:00 Zonisamide (Zonegran) 300 mg QHS PO Last administered on 01/27/18 21:12; Admin Dose 300 MG; Start 01/25/18 at 21:00 Eye Lubricant (Artificial Tears Oph) 1 drop Q8 BOTH EYES Last administered on 01/28/18 06:22; Admin Dose 1 DROP; Start 01/25/18 at 22:00 Miscellaneous Information (Pending [facility] Order For Wound Care) This patient woody... PRN PRN XX wound; Start 01/25/18 at 16:30 Vitamin A/Vitamin D (Vitamin A & D Oint) 1 applic BID TOP Last administered on 01/28/18 09:13; Admin Dose 1 APPLIC; Start 01/26/18 at 21:00 Docusate Sodium/ Ferrous Fumarate (Sangita-Sequels) 1 tab BID PO Last a dministered on 01/28/18 09:05; Admin Dose 1 TAB; Start 01/27/18 at 21:00 Docusate Sodium (Colace) 200 mg BID PO Last administered on 01/28/18 09:06; Admin Dose 200 MG; Start 01/27/18 at 21:00 Enoxaparin Sodium (Lovenox) 40 mg DAILY SC Last administered on 01/28/18at 09:10; Admin Dose 40 MG; Start 01/28/18 at 09:00 Sodium Hypochlorite (Dakin'S (Dilute )) 1 applic DAILY IRR ; Start 01/27/18 at 18:30 Collagenase (Santyl) 1 applic DAILY TOP Last administered on 01/28/18at 09:13; Admin Dose 1 APPLIC; Start 01/27/18 at 17:30 Hydrocortisone (Hydrocortisone 1% Cr) 1 applic BID TOP Last administered on 01/28/18at 09:12; Admin Dose 1 APPLIC; Start 01/27/18 at 21:19 Results Result Diagram: 01/27/1892201/27/18922 LIVIA ADAME NP Jan 28, 2018 13:29
[2018-01-28] MEDS ORDERED: LEVOFLOXACIN 500MG/D5W (PMX) 100 ML IVPB ONE (13:30)
[2018-01-28] MEDS: morphine 2 MG INJ IV PRN ×2 (13:38→21:09)
[2018-01-28 14:00] VITALS: BP 116/66; PULSE 83; RESP 18
--- NOTE | 2018-01-28 18:38 | NUR ---
all needs met.no acute events.gave pain medication as requsted.turned the patient q 2 hours .changed the dressing as ordered. changed the bl feet dressing .call light within reach.bed alarm on.he is resting comfortably in bed.
[2018-01-28 19:42] VITALS: BP 131/75; RESP 20
[2018-01-28] MEDS: RISPERIDONE 1 MG TAB PO SCH (21:03)
[2018-01-28] MEDS: ZONISAMIDE 100 MG CAP PO SCH (21:03)
[2018-01-29] MEDS: morphine 2 MG INJ IV PRN ×4 (01:19→22:23)
[2018-01-29 02:11] VITALS: BP 103/65; PULSE 88; RESP 20
[2018-01-29] MEDS: ARTIFICIAL TEARS 15 ML OPH BOTH EYES SCH ×3 (05:57→21:00)
[2018-01-29] MEDS: HYDROCODONE/APAP (5/325) TAB PO PRN ×3 (05:57→20:55)
--- NOTE | 2018-01-29 06:00 | NUR ---
RN Notes Patient had no changes in condition overnight. Pain adequately managed with PRN Morphine and [place]. No signs of pain upon pain reassessment. Patient kept clean and comfortable throughout shift. Repositioned Q2H and as needed for comfort. Bed kept at lowest position with bed alarm activated for safety. Call light button within reach. Frequent and hourly rounding done. Will continue to monitor and endorse to oncoming RN accordingly.
[2018-01-29 07:45] VITALS: BP 112/66; PULSE 79; RESP 16
[2018-01-29] MEDS: SODIUM HYPOCHLORITE (1/40) 1 APPLIC BTL IRR SCH (09:00)
[2018-01-29] MEDS: DOCUSATE SODIUM 100 MG CAP PO SCH ×2 (09:56→20:57)
[2018-01-29] MEDS: MAGNESIUM OXIDE 400 MG TAB PO SCH ×2 (09:57→20:57)
[2018-01-29] MEDS: FERROUS FUMARATE (SR) TAB PO SCH ×2 (09:57→20:56)
[2018-01-29] MEDS: DULOXETINE 30 MG CAP DR PO SCH (09:57)
[2018-01-29] MEDS: FOLIC ACID 1 MG TAB PO SCH (09:57)
[2018-01-29] MEDS: FAMOTIDINE 20 MG TAB PO SCH ×2 (09:57→20:57)
[2018-01-29] MEDS: GABAPENTIN 100 MG CAP PO SCH ×2 (09:57→20:58)
[2018-01-29] MEDS: RIFAMPIN 300 MG CAP PO SCH (09:57)
[2018-01-29] MEDS: BACLOFEN 10 MG TAB PO SCH ×3 (09:57→20:58)
[2018-01-29] MEDS: ALLOPURINOL 100 MG TAB PO SCH (09:57)
[2018-01-29] MEDS: ISONIAZID 300 MG TAB PO SCH (09:58)
[2018-01-29] MEDS: PYRIDOXINE 50 MG TAB PO SCH (09:58)
[2018-01-29] MEDS: VITAMIN A & D 5 GM OINT PACKET TOP SCH ×2 (09:58→20:58)
[2018-01-29] MEDS: ENOXAPARIN 40 MG/0.4 ML SYG SC SCH (09:59)
[2018-01-29] MEDS: HYDROCORTISONE 1% 28 GM CR TOP SCH ×2 (09:59→20:58)
[2018-01-29] MEDS: NYSTATIN 15 GM POWDER BTL TOP SCH ×2 (09:59→21:06)
[2018-01-29] MEDS: COLLAGENASE 5 GM (UD JAR) TOP SCH (09:59)
[2018-01-29] MEDS: BALSAM PERU/CASTOR OIL 60 GM TUBE TOP SCH (09:59)
--- NOTE | 2018-01-29 10:34 | PDOCDIS ---
Discharge Instructions CONDITION [id number] Patient Condition: [id number] Stable HOME CARE INSTRUCTIONS: [id number] Special Diet: [id number] Regular FOLLOW UP/APPOINTMENTS Follow-up Plan Follow-up with [facility] wound care clinic in 1 week. Continue antibiotic for 2 weeks Daily wound dressing: Irrigated with Dakin solution, dressed with Santyl, Xeroform and Kerlix. Offload bilateral heels on heel protectors and pillows LIVIA ADAME NP Jan 29, 2018 10:34
[2018-01-29] MEDS ORDERED: LEVO500T10 PO (10:35)
--- NOTE | 2018-01-29 10:40 | DS ---
Date/Time of Note Date/Time of Note DATE: 01/29/18 TIME: 10:37 Discharge Summary Admission/Discharge Info Admit Date/Time Jan 26, 2018 at 08:29 Discharge Date/Time Discharge Diagnosis 1. Bilateral heel Decub ulcers-status post excisional debridement of bilateral heel decubitus. No evidence of osteomyelitis. 2. Paraplegia secondary to spinal disorder and back surgery 6 months ago 3. Likely latent TB per home meds 4. Depression 5. Hypertension 6. Debility secondary to #2. 7. Chronic anemia with mild iron deficiency. 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 Bedside excisional debridement of bilateral heel decubitus ulcers Hx of Present Illness 09/24/2017. X-ray right foot. FINDINGS: There is normal mineralization and alignment. No fracture or osseous lesion is identified. The joints are normal. The soft tissues are unremarkable. IMPRESSION: Unremarkable foot. 01/25/2018. X-ray left foot. FINDINGS: There is normal mineralization and alignment. No fracture or osseous lesion is identified. The joints are normal. The soft tissues are unremarkable. IMPRESSION: Unremarkable foot. 01/27/2018. Bilateral lower extremity arterial ultrasound. IMPRESSION: No focal hemodynamically significant stenosis in either lower extremity. Hospital Course Very unfortunate 57-year-old male with a history of paraplegia secondary to spinal cord syndrome 6 months ago, who also resides in a alf, presented to the emergency room with worsening bilateral heel ulcers with foul-smelling drainage. Patient was started on IV antimicrobials. Arterial studies unremarkable. He had podiatry evaluation and underwent bedside excisional debridement of bilateral heel decubitus ulcers. There was no evidence of osteomyelitis in the radiographs. He was continued on daily wound care with Dakin's irrigation followed by Santyl, Xeroform and Kerlix dressing. Wound culture grew entero- coccus sensitive to fluoroquinolone. Patient did well. He was continued on home medication for underlying comorbidities. There was no leukocytosis or fever. Wound dressing intact with no further oozing or foul-smelling. Patient is medically stable from podiatry standpoint to discharge to a group home facility with continuation of wound care and oral Levaquin and follow-up at [facility] wound care clinic. Patient did not want to go back to the place he came from as such, he was accepted to another alf office preference. Approximately 60 minutes was spent on coordinating the discharge on this patient. Patient was seen in collaboration with Dr. Awad. Home Meds Reported Medications Nitroglycerin* (Nitro-Bid* Oint (30gm)) 1 Inch Oint, 1 INCH TD Q6 PRN for DYSURIA, TUB 01/25/18 Lidocaine (Lidocaine Topical) 30 Ml Jel, 30 ML TP PRN PRN for IF CATHETER REMAINS OCCULUDED 01/25/18 Famotidine* (Famotidine*) 20 Mg Tablet, 20 MG PO BID, #60 TAB 01/25/18 Folic Acid* (Folic Acid*) 1 Mg Tablet, 1 MG PO DAILY, TAB 01/25/18 Pyridoxine Hcl* (Pyridoxine Hcl*) 50 Mg Tablet, 50 MG PO DAILY, TAB 01/25/18 Zonisamide* (Zonegran*) 100 Mg Capsule, 300 MG PO QHS, CAP 01/25/18 Nystatin* (Nyamyc* Powder) 1 Applic Powder, 1 APPLIC TOP BID, EA 01/25/18 Polyvinyl Alcohol (Tears Again) 15 Ml Drops, 1 DRP BOTH EYES Q8, BOTTLE 01/07/18 Hydrocodone/Acetaminophen ([place] 10-325 Tablet) 1 Each Tablet, 1 EACH PO Q6 PRN for PAIN, TAB 01/07/18 Risperidone* (Risperidone*) 1 Mg Tablet, 1 MG PO QHS, TAB 01/07/18 Magnesium Oxide* (Magnesium Oxide*) 400 Mg Tablet, 400 MG PO BID, TAB 01/07/18 Gabapentin* (Gabapentin*) 100 Mg Capsule, 100 MG PO BID, #90 CAP 01/07/18 Petrolatum,White* (Vaseline*) 5 Gm Oint.pack, 1 APPLIC TOP BID, PACKET 01/07/18 Carvedilol* (Carvedilol*) 12.5 Mg Tablet, 12.5 MG PO BID, #60 TAB 01/07/18 Duloxetine Hcl* (Duloxetine Hcl*) 30 Mg Capsule.dr, 30 MG PO DAILY, #30 CAP 01/07/18 Baclofen* (Baclofen*) 10 Mg Tablet, 10 MG PO TID, TAB 01/07/18 Allopurinol* (Allopurinol*) 100 Mg Tablet, 100 MG PO DAILY, TAB 01/07/18 Rifampin* (Rifampin*) 300 Mg Cap, 600 MG PO DAILY, CAP 01/07/18 Isoniazid* (Isoniazid*) 300 Mg Tablet, 300 MG PO DAILY, TAB 01/07/18 Bisacodyl (Dulcolax) 10 Mg Supp.rect, 10 MG RC DAILY PRN for CONSTIPATION, SUPP.RECT 01/07/18 Docusate Sodium* (Colace*) 100 Mg Capsule, 100 MG PO BID PRN for CONSTIPATION, #60 CAP 01/07/18 Discontinued Reported Medications Zonisamide* (Zonegran*) 100 Mg Capsule, 200 MG PO DAILY, CAP TAKE TWO CAPS STARTING 01-10 THRU 01-16-18 THEN THREE CAPS AFTER 01/07/18 Zonisamide* (Zonegran*) 100 Mg Capsule, 100 MG PO DAILY, CAP TAKE ONE CAP THRU 01-09-01/07/18 Amantadine Hcl* (Amantadine Hcl*) 100 Mg Capsule, 100 MG PO BID, #60 CAP 01/07/18 Polyvinyl Alcohol (Tears Again) 15 Ml Drops, 1 DRP BOTH EYES QID, BOTTLE 01/07/18 Discontinued Scripts Ondansetron Hcl* (Zofran*) 4 Mg Tablet, 4 MG PO Q8H PRN for NAUSEA AND/OR VOMITING, #30 TAB Prov:MARC BLACKBURN MD 01/13/18 Ibuprofen* (Motrin*) 600 Mg Tab, 600 MG PO Q8 PRN for PAIN AND/OR INFLAMMATION, #30 TAB Prov:MARC BLACKBURN MD 01/13/18 Ciprofloxacin Hcl* (Ciprofloxacin Hcl*) 500 Mg Tablet, 500 MG PO BID for 10 Days, TAB Prov:CRISTOPHER SPAIN MD 01/07/18 Follow-up Plan Follow-up with [facility] wound care clinic in 1 week. Continue antibiotic for 2 weeks Daily wound dressing: Irrigated with Dakin solution, dressed with Santyl, Xerofo rm and Kerlix. Offload bilateral heels on heel protectors and pillows Primary Care Provider Care Physician LIVIA Geronimo NP Jan 29, 2018 10:40
--- NOTE | 2018-01-29 12:35 | NUR ---
RN notes Pt transferred in the unit from surgery. Pt is alert, awake and verbally responsive. Respiration are even and non labored. Complain of surgical site pain in abdomen. Surgical site is covered with dry dressing with small bleeding noted. Abdominal binder applied. teach the family and patient how to use the incentive spirometer. Reading material given. Patient and family verbalize understanding and pt. demonstrate how to use it. Teaching is effective and Tolerated well. Phillips the Pt. to medical equipment and bed equipment. Pt verbalize understanding. Skin assessment done with Jaja KEITA. Picture was taken. No skin issue noted. Will continue to monitor. Addendum: 01/29/18 at 1848 by REGINA SORIANO RN Wrong entry, Wrong patient
[2018-01-29] MEDS: LEVOFLOXACIN 500MG/D5W (PMX) 100 ML IVPB SCH (13:35)
--- NOTE | 2018-01-29 14:10 | NUR ---
RN notes Spoke to [facility] director case management per [facility] she is still working for patient placement at this time.
[2018-01-29 14:15] VITALS: BP 102/63; PULSE 103; RESP 16
--- NOTE | 2018-01-29 14:20 | NUR ---
Case Management Note: Faxed info to [phone] Skilled Nurse facility/Peri
--- NOTE | 2018-01-29 18:49 | NUR ---
Rn notes. Pt. is alert, awake and verbally responsive. Respiration are even and non labored. Complain of generalized pain. Pain medication given as ordered. Tolerated well. Wound care rendered. Tolerated well. No s/s of infection noted. Still waiting for placement at this time. Will endorse accordingly.
[2018-01-29 19:49] VITALS: BP 101/64; PULSE 89; RESP 17
[2018-01-29] MEDS: RISPERIDONE 1 MG TAB PO SCH (20:57)
[2018-01-29] MEDS: ZONISAMIDE 100 MG CAP PO SCH (21:04)
[2018-01-30 02:08] VITALS: BP 98/56; PULSE 87; RESP 18
[2018-01-30 02:32] VITALS: BP 107/63; PULSE 74
[2018-01-30] MEDS: HYDROCODONE/APAP (5/325) TAB PO PRN ×3 (02:58→17:25)
[2018-01-30] MEDS: ARTIFICIAL TEARS 15 ML OPH BOTH EYES SCH ×3 (06:13→21:15)
[2018-01-30] MEDS: morphine 2 MG INJ IV PRN ×3 (06:29→21:14)
--- NOTE | 2018-01-30 07:19 | NUR ---
RN Notes Patient had no changes in condition overnight. Pain adequately managed with PRN [place] and Morphine. Patient repositioned Q2H kept clean and comfortable throughout shift. Bed kept at lowest position with bed alarm activated for safety. Will endorse to oncoming RN for continuation of care.
[2018-01-30 08:36] VITALS: BP 119/68; PULSE 86; RESP 18
[2018-01-30] MEDS: COLLAGENASE 5 GM (UD JAR) TOP SCH (09:01)
[2018-01-30] MEDS: MAGNESIUM OXIDE 400 MG TAB PO SCH ×2 (09:01→21:16)
[2018-01-30] MEDS: DOCUSATE SODIUM 100 MG CAP PO SCH ×2 (09:01→21:15)
[2018-01-30] MEDS: PYRIDOXINE 50 MG TAB PO SCH (09:02)
[2018-01-30] MEDS: GABAPENTIN 100 MG CAP PO SCH ×2 (09:02→21:16)
[2018-01-30] MEDS: ISONIAZID 300 MG TAB PO SCH (09:02)
[2018-01-30] MEDS: BACLOFEN 10 MG TAB PO SCH ×3 (09:02→21:16)
[2018-01-30] MEDS: RIFAMPIN 300 MG CAP PO SCH (09:02)
[2018-01-30] MEDS: ALLOPURINOL 100 MG TAB PO SCH (09:02)
[2018-01-30] MEDS: DULOXETINE 30 MG CAP DR PO SCH (09:03)
[2018-01-30] MEDS: FERROUS FUMARATE (SR) TAB PO SCH ×2 (09:03→21:16)
[2018-01-30] MEDS: FAMOTIDINE 20 MG TAB PO SCH ×2 (09:03→21:16)
[2018-01-30] MEDS: FOLIC ACID 1 MG TAB PO SCH (09:03)
[2018-01-30] MEDS: BALSAM PERU/CASTOR OIL 60 GM TUBE TOP SCH (09:05)
[2018-01-30] MEDS: ENOXAPARIN 40 MG/0.4 ML SYG SC SCH (09:05)
[2018-01-30] MEDS: NYSTATIN 15 GM POWDER BTL TOP SCH ×2 (09:05→21:17)
[2018-01-30] MEDS: VITAMIN A & D 5 GM OINT PACKET TOP SCH ×2 (09:05→21:17)
[2018-01-30] MEDS: SODIUM HYPOCHLORITE (1/40) 1 APPLIC BTL IRR SCH (09:05)
[2018-01-30] MEDS: HYDROCORTISONE 1% 28 GM CR TOP SCH ×2 (09:05→21:28)
--- NOTE | 2018-01-30 10:38 | NUR ---
ASSIGNED TO ME TODAY: PATIENT WAS REFERRED TO [facility], FF UP CATHERINE ADMISSIONS STILL PENDING ACCEPTANCE, FF UP REFERRAL TO SNF IN [place], DENIED BY THEIR CM ELEUTERIO [phone]. Addendum: 01/30/18 at 1040 by GENOVEVA GONSALES CM Amended: Links added. Addendum: 01/30/18 at 1100 by GENOVEVA GONSALES CM REFERRED TO [facility] [phone] FAXED TO [phone]
--- NOTE | 2018-01-30 11:27 | PN ---
Date/Time of Note Date/Time of Note DATE: 01/30/18 TIME: 11:25 Assessment/Plan VTE Prophylaxis Risk score (from Nsg)>0 risk: 3 SCD applied (from Nsg): Yes Pharmacological prophylaxis: LMWH Lines/Catheters IV Catheter Type (from Nrsg): Saline Lock Urinary Cath still in place: Yes Reason Cath still needed: urinary retention Assessment/Plan Hospital Course SUBJECTIVE: Patient discharge was canceled due to placement issues. No acute overnight episodes. OBJECTIVE: Vital signs-see below PHYSICAL EXAM: Constitutional: Bedbound male, not in acute distress. Psych: nl mood/affect, no complaints Head: atraumatic, normocephalic Eyes: nl conjunctiva, nl sclera ENMT: mucosa pink and moist, nl external ears & nose Neck: non-tender, supple Respiratory: clear to auscultation, normal air movement Cardiovascular: nl pulses, regular rate and rhythm Gastrointestinal: non-tender, soft, bowel sounds active in all 4 quadrants. Musculoskeletal/extremities: Paraplegic. Normal pulses,no cyanosis, no edema. Neurological: Alert oriented 3,nl speech, nl strength Skin: Bilateral heel with ulcers, covered with dressing. No oozing noted on dressing. Nl turgor ASSESSMENT/PLAN: Very unfortunate 57-year-old male with a history of paraplegia secondary to spinal cord syndrome 6 months ago, who also resides in a assisted, presented to the emergency room with worsening bilateral heel ulcers with foul-smelling drainage 1. Bilateral heel Decub ulcers -status post excisional debridement of bilateral heel decubitus. No evidence of osteomyelitis. -Wound culture grew enterococcus, will DC vancomycin and start patient on Levaquin based on sensitivity. -Continue wound care per podiatry recommendation with Dakin's irrigation/Xeroform/Kerlix dressing. 2. Paraplegia secondary to spinal disorder and back surgery 6 months ago -Exact nature of disorder and surgery unclear -Continue baclofen 3. Likely latent TB per home meds -Continue isoniazid 4. Depression -Continue home Cymbalta 5. Hypertension -Continue Coreg 6. Debility secondary to #2. -Patient resides in a assisted. 7. Chronic anemia with mild iron deficiency. -Stable H&H. Continue oral iron replacement. Prophylaxis: Lovenox/Pepcid Diet: Regular CODE STATUS: Full code Disposition: Patient is medically cleared for discharge back to long term facility. Case management to arrange placement. In the event that he is not getting accepted to a new assisted of his choice, most likely he can be discharged today back to the facility he came from.. Patient was seen in collaboration with Dr. Awad. Exam/Review of Systems Vital Signs Vitals Vital Signs Date Temp Pulse Resp B/P (MAP) Pulse Ox O2 O2 Flow FiO2 Time Delivery Rate 01/30/18 97.6 86 18 119/68 100 08:36 (85) 01/29/18 Room Air 14:15 Intake and Output 01/29/18 01/29/18 01/30/18 1515:00 23:00 07:00 IntakeIntake Total 800 ml 300 ml OutputOutput Total 800 ml BalanceBalance 0 ml 300 ml Medications Medications Current Medications IV Flush (NS 3 ml) 3 ml PER PROTOCOL IV ; Start 01/25/18 at 15:30 Ondansetron HCl (Zofran Inj) 4 mg Q6H PRN IV NAUSEA AND/OR VOMITING; Start 01/25/18 at 15:30 Acetaminophen (Tylenol Tab) 650 mg Q6H PRN PO PAIN LEVEL 1-3 OR FEVER; Start 01/25/18 at 15:30 Acetaminophen/ Hydrocodone Bitart ([place] (5/325)) 1 tab Q6H PRN PO MODERATE PAIN LEVEL 4-6 Last administered on 01/30/18at 09:03; Admin Dose 1 TAB; Start 01/25/18 at 15:30 Morphine Sulfate (morphine) 2 mg Q4H PRN IV SEVERE PAIN LEVEL 7-10 Last adm inistered on 01/30/18at 10:49; Admin Dose 2 MG; Start 01/25/18 at 15:30 Zolpidem Tartrate (Ambien) 5 mg QHS PRN PO SLEEP; Start 01/25/18 at 15:30 Allopurinol (Zyloprim) 100 mg DAILY PO Last administered on 01/30/18at 09:02; Admin Dose 100 MG; Start 01/26/18 at 09:00 Baclofen (Lioresal) 10 mg TID PO Last administered on 01/30/18 09:02; Admin Dose 10 MG; Start 01/25/18 at 21:00 Carvedilol (Coreg) 12.5 mg BID PO Last administered on 01/30/18 09:02; Admin Dose 12.5 MG; Start 01/25/18 at 21:00 Duloxetine HCl (Cymbalta) 30 mg DAILY PO Last administered on 01/30/18 09:03; Admin Dose 30 MG; Start 01/26/18 at 09:00 Famotidine (Pepcid) 20 mg BID PO Last administered on 01/30/18 09:03; Admin Dose 20 MG; Start 01/25/18 at 21:00 Folic Acid (Folic Acid) 1 mg DAILY PO Last administered on 01/30/18 09:03; Admin Dose 1 MG; Start 01/26/18 at 09:00 Gabapentin (Neurontin) 100 mg BID PO Last administered on 01/30/18 09:02; Admin Dose 100 MG; Start 01/25/18 at 21:00 Isoniazid (Isoniazid) 300 mg DAILY PO Last administered on 01/30/18 09:02; Admin Dose 300 MG; Start 01/26/18 at 09:00 Magnesium Oxide (Mag-Ox 400) 400 mg BID PO Last administered on 01/30/18 09:01; Admin Dose 400 MG; Start 01/25/18 at 21:00 Nystatin 1 applic BID TOP Last administered on 01/30/18 09:05; Admin Dose 1 APPLIC; Start 01/25/18 at 21:00 Pyridoxine HCl (Vitamin B6) 50 mg DAILY PO Last administered on 01/30/18 09:02; Admin Dose 50 MG; Start 01/26/18 at 09:00 Rifampin (Rifampin) 600 mg DAILY PO Last administered on 01/30/18 09:02; Admin Dose 600 MG; Start 01/26/18 at 09:00 Risperidone (Risperdal) 1 mg QHS PO Last administered on 01/29/18 20:57; Admin Dose 1 MG; Start 01/25/18 at 21:00 Zonisamide (Zonegran) 300 mg QHS PO Last administered on 01/29/18 21:04; Admin Dose 300 MG; Start 01/25/18 at 21:00 Eye Lubricant (Artificial Tears Oph) 1 drop Q8 BOTH EYES Last administered on 01/30/18 06:13; Admin Dose 1 DROP; Start 01/25/18 at 22:00 [facility]iscellaneous [facility] This patient woody... PRN PRN XX wound; Start 01/25/18 at 16:30 Vitamin A/Vitamin D (Vitamin A & D Oint) 1 applic BID TOP Last administered on 01/30/18 09:05; Admin Dose 1 APPLIC; Start 01/26/18 at 21:00 Docusate Sodium/ Ferrous Fumarate (Sangita-Sequels) 1 tab BID PO Last administered on 01/30/18 09:03; Admin Dose 1 TAB; Start 01/27/18 at 21:00 Docusate Sodium (Colace) 200 mg BID PO Last administered on 01/30/18 09:01; Admin Dose 200 MG; Start 01/27/18 at 21:00 Enoxaparin Sodium (Lovenox) 40 mg DAILY SC Last administered on 01/30/18 09:05; Admin Dose 40 MG; Start 01/28/18 at 09:00 Sodium Hypochlorite (Dakin'S (Dilute 40)) 1 applic DAILY IRR Last administered on 01/30/18 09:05; Admin Dose 1 APPLIC; Start 01/27/18 at 18:30 Collagenase (Santyl) 1 applic DAILY TOP Last administered on 01/30/18 09:01; Admin Dose 1 APPLIC; Start 01/27/18 at 17:30 Hydrocortisone (Hydrocortisone 1% Cr) 1 applic BID TOP Last administered on 01/30/18 09:05; Admin Dose 1 APPLIC; Start 01/27/18 at 21:19 Levofloxacin/ Dextrose 100 ml @ 100 mls/hr Q24H IVPB Last administered on 01/29/18at 13:35; Admin Dose 100 MLS/HR; Start 01/29/18 at 14:00 Results Result Diagram: 01/27/1823 01/27/18922 LIVIA ADAME NP Jan 30, 2018 11:27
[2018-01-30] MEDS: LEVOFLOXACIN 500MG/D5W (PMX) 100 ML IVPB SCH (13:53)
[2018-01-30 15:10] VITALS: BP 118/71; PULSE 97; RESP 18
--- NOTE | 2018-01-30 16:58 | NUR ---
DC UPDATE: ACCEPTED @ [facility] [phone] ROOM 117 A. SPOKE TO JOSIE ADMISSIONS , FAXED PACKET TO FILL UP WHICH ARIA THOMPSON NURSE AND I FILLED UP [phone]. ELLIOT PATINO SIGNED FOR LIVIA. NOTIFIED FACILITY FAXED PACKET AND WILL FF UP 01/31/18 TO CONFIRM ACCEPTANCE . Addendum: 01/30/18 at 1710 by GENOVEVA GONSALES CM Amended: Links added. Addendum: 01/30/18 at 1719 by GENOVEVA GONSALES CM SPOKE TO , HER CHOICE OF SNF [facility]. CATHERINE ADMISSION FO [facility] SAID THAT [facility] WILL HAVE TO DO ROXANE FOR SKILLED WITH INSURANCE, POSSIBLE BED AVAILABLE ON Friday02/02/18. WILL ENDORSE TO WEEKEND CM TO FF UP [facility] RE ACCEPTANCE AND TO NOTIFY ATTENDING FOR THE DC ORDER AND MED REC.
--- NOTE | 2018-01-30 18:50 | NUR ---
RN notes Pt is al;ert, awake and verbally responsive. Respiration are even and non labored. No acute distress or discomfort noted. Per case preparer and liner pt. got accepted in [facility] case preparer and liner will follow up tomorrow with the acceptance confirmation of the snif. Wound care rendered. Tolerated well. Benavidez cath is in place no s/s of infection noted. No hematuria noted. Will endorse accordingly.
[2018-01-30 20:00] VITALS: BP 110/64; PULSE 93; RESP 18
[2018-01-30] MEDS: RISPERIDONE 1 MG TAB PO SCH (21:16)
[2018-01-30] MEDS: ZONISAMIDE 100 MG CAP PO SCH (21:17)
[2018-01-31 02:14] VITALS: BP 108/58; PULSE 83; RESP 18
[2018-01-31] MEDS: morphine 2 MG INJ IV PRN ×3 (02:59→19:37)
[2018-01-31] MEDS: ARTIFICIAL TEARS 15 ML OPH BOTH EYES SCH ×3 (05:41→21:19)
--- NOTE | 2018-01-31 06:42 | NUR ---
Patient in room asleep with no signs of distress. Vital signs stable. Patient complained of pain this shift. Morphine administered per MD order. Patient with BM this shift. Wound treatment done to sacrococcyx at that time. Otherwise, all dressings clean, dry, and intact with heel floaters in place. No other skin breakdown noted. Benavidez catheter patent and draining adequate amount of urine this shift. Patient turned every 2 hours with heels elevated. No other changes noted. All needs met and medications administered this shift. Safety precautions and hourly rounding currently in place until the end of shift. Will inform oncoming nurse on the need to follow-up on SNF confirmation due to possible discharge today.
[2018-01-31 08:37] VITALS: BP 131/72; PULSE 58; RESP 18
[2018-01-31] MEDS: BALSAM PERU/CASTOR OIL 60 GM TUBE TOP SCH (09:00)
[2018-01-31] MEDS: GABAPENTIN 100 MG CAP PO SCH ×2 (09:24→21:20)
[2018-01-31] MEDS: DOCUSATE SODIUM 100 MG CAP PO SCH ×2 (09:24→21:20)
[2018-01-31] MEDS: VITAMIN A & D 5 GM OINT PACKET TOP SCH ×2 (09:24→21:17)
[2018-01-31] MEDS: PYRIDOXINE 50 MG TAB PO SCH (09:24)
[2018-01-31] MEDS: ISONIAZID 300 MG TAB PO SCH (09:24)
[2018-01-31] MEDS: COLLAGENASE 5 GM (UD JAR) TOP SCH (09:24)
[2018-01-31] MEDS: RIFAMPIN 300 MG CAP PO SCH (09:24)
[2018-01-31] MEDS: FERROUS FUMARATE (SR) TAB PO SCH ×2 (09:24→21:21)
[2018-01-31] MEDS: FAMOTIDINE 20 MG TAB PO SCH ×2 (09:24→21:21)
[2018-01-31] MEDS: FOLIC ACID 1 MG TAB PO SCH (09:25)
[2018-01-31] MEDS: MAGNESIUM OXIDE 400 MG TAB PO SCH ×2 (09:25→21:22)
[2018-01-31] MEDS: BACLOFEN 10 MG TAB PO SCH ×3 (09:25→21:21)
[2018-01-31] MEDS: DULOXETINE 30 MG CAP DR PO SCH (09:25)
[2018-01-31] MEDS: ALLOPURINOL 100 MG TAB PO SCH (09:25)
[2018-01-31] MEDS: ENOXAPARIN 40 MG/0.4 ML SYG SC SCH (09:27)
[2018-01-31] MEDS: HYDROCORTISONE 1% 28 GM CR TOP SCH ×2 (09:35→21:24)
[2018-01-31] MEDS: NYSTATIN 15 GM POWDER BTL TOP SCH ×2 (09:35→21:25)
[2018-01-31] MEDS: SODIUM HYPOCHLORITE (1/40) 1 APPLIC BTL IRR SCH (09:35)
[2018-01-31] MEDS: HYDROCODONE/APAP (5/325) TAB PO PRN ×2 (10:36→21:21)
--- NOTE | 2018-01-31 10:59 | NUR ---
CM called [facility] at [phone] and confirmed that the bed is ready for this patient. JEAN updated the RN and called Seun, the conservator at [phone] and updated her that the bed is ready; she verbalized understanding.
--- NOTE | 2018-01-31 11:17 | NUR ---
CM called [facility] at [phone] and coordinated the transport to [employer] [facility] [employer] for 2pm today. Trip # is [id number].
--- NOTE | 2018-01-31 11:21 | DS ---
Date/Time of Note Date/Time of Note DATE: 01/31/18 TIME: 11:18 Discharge Summary Admission/Discharge Info Admit Date/Time Jan 26, 2018 at 08:29 Discharge Date/Time Discharge Diagnosis 1. Bilateral heel Decub ulcers-status post excisional debridement of bilateral heel decubitus. No evidence of osteomyelitis. 2. Paraplegia secondary to spinal disorder and back surgery 6 months ago 3. Likely latent TB per home meds 4. Depression 5. Hypertension 6. Debility secondary to #2. 7. Chronic anemia with mild iron deficiency. 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 X-ray right foot. FINDINGS: There is normal mineralization and alignment. No fracture or osseous lesion is identified. The joints are normal. The soft tissues are unremarkable. IMPRESSION: Unremarkable foot. 01/25/2018. X-ray left foot. FINDINGS: There is normal mineralization and alignment. No fracture or osseous lesion is identified. The joints are normal. The soft tissues are unremarkable. IMPRESSION: Unremarkable foot. 01/27/2018. Bilateral lower extremity arterial ultrasound. IMPRESSION: No focal hemodynamically significant stenosis in either lower extremity. Hospital Course Very unfortunate 57-year-old male with a history of paraplegia secondary to spinal cord syndrome 6 months ago, who also resides in a nursing/assisted living home, presented to the emergency room with worsening bilateral heel ulcers with foul-smelling drainage. Patient was started on IV antimicrobials. Arterial studies unremarkable. He had podiatry evaluation and underwent bedside excisional debridement of bilateral heel decubitus ulcers. There was no evidence of osteomyelitis in the radiographs. He was continued on daily wound care with Dakin's irrigation followed by Santyl, Xeroform and Kerlix dressing. Wound culture grew entero- coccus sensitive to fluoroquinolone. Patient did well. He was continued on home medication for underlying comorbidities. There was no leukocytosis or fever. Wound dressing intact with no further oozing or foul-smelling. Patient is medically stable from podiatry standpoint to discharge to a senior living with continuation of wound care and oral Levaquin and follow-up at [facility] wound care clinic. Case management arranged placement with patient's preference as he was not willing to go back to the facility he came from. Approximately 60 minutes was spent on coordinating the discharge on this patient. Patient was seen in collaboration with Dr. Melara Home Meds Active Scripts Levofloxacin* (Levofloxacin*) 500 Mg Tablet, 500 MG PO DAILY, #14 TAB Prov:LIVIA ADAME V. DATA KEYER 01/29/18 Reported Medications Nitroglycerin* (Nitro-Bid* Oint (30gm)) 1 Inch Oint, 1 INCH TD Q6 PRN for DYSURIA, TUB 01/25/18 Lidocaine (Lidocaine Topical) 30 Ml Jel, 30 ML TP PRN PRN for IF CATHETER REMAI NS OCCULUDED 01/25/18 Famotidine* (Famotidine*) 20 Mg Tablet, 20 MG PO BID, #60 TAB 01/25/18 Folic Acid* (Folic Acid*) 1 Mg Tablet, 1 MG PO DAILY, TAB 01/25/18 Pyridoxine Hcl* (Pyridoxine Hcl*) 50 Mg Tablet, 50 MG PO DAILY, TAB 01/25/18 Zonisamide* (Zonegran*) 100 Mg Capsule, 300 MG PO QHS, CAP 01/25/18 Nystatin* (Nyamyc* Powder) 1 Applic Powder, 1 APPLIC TOP BID, EA 01/25/18 Polyvinyl Alcohol (Tears Again) 15 Ml Drops, 1 DRP BOTH EYES Q8, BOTTLE 01/07/18 Hydrocodone/Acetaminophen ([place] 10-325 Tablet) 1 Each Tablet, 1 EACH PO Q6 PRN for PAIN, TAB 01/07/18 Risperidone* (Risperidone*) 1 Mg Tablet, 1 MG PO QHS, TAB 01/07/18 Magnesium Oxide* (Magnesium Oxide*) 400 Mg Tablet, 400 MG PO BID, TAB 01/07/18 Gabapentin* (Gabapentin*) 100 Mg Capsule, 100 MG PO BID, #90 CAP 01/07/18 Petrolatum,White* (Vaseline*) 5 Gm Oint.pack, 1 APPLIC TOP BID, PACKET 01/07/18 Carvedilol* (Carvedilol*) 12.5 Mg Tablet, 12.5 MG PO BID, #60 TAB 01/07/18 Duloxetine Hcl* (Duloxetine Hcl*) 30 Mg Capsule.dr, 30 MG PO DAILY, #30 CAP 01/07/18 Baclofen* (Baclofen*) 10 Mg Tablet, 10 MG PO TID, TAB 01/07/18 Allopurinol* (Allopurinol*) 100 Mg Tablet, 100 MG PO DAILY, TAB 01/07/18 Rifampin* (Rifampin*) 300 Mg Cap, 600 MG PO DAILY, CAP 01/07/18 Isoniazid* (Isoniazid*) 300 Mg Tablet, 300 MG PO DAILY, TAB 01/07/18 Bisacodyl (Dulcolax) 10 Mg Supp.rect, 10 MG RC DAILY PRN for CONSTIPATION, SUPP.RECT 01/07/18 Docusate Sodium* (Colace*) 100 Mg Capsule, 100 MG PO BID PRN for CONSTIPATION, #60 CAP 01/07/18 Discontinued Reported Medications Zonisamide* (Zonegran*) 100 Mg Capsule, 200 MG PO DAILY, CAP TAKE TWO CAPS STARTING 01-10 THRU 01-16-18 THEN THREE CAPS AFTER 01/07/18 Zonisamide* (Zonegran*) 100 Mg Capsule, 100 MG PO DAILY, CAP TAKE ONE CAP THRU 01-09-01/07/18 Amantadine Hcl* (Amantadine Hcl*) 100 Mg Capsule, 100 MG PO BID, #60 CAP 01/07/18 Polyvinyl Alcohol (Tears Again) 15 Ml Drops, 1 DRP BOTH EYES QID, BOTTLE 01/07/18 Discontinued Scripts Ondansetron Hcl* (Zofran*) 4 Mg Tablet, 4 MG PO Q8H PRN for NAUSEA AND/OR VOMITING, #30 TAB Prov:MARC BLACKBURN MD 01/13/18 Ibuprofen* (Motrin*) 600 Mg Tab, 600 MG PO Q8 PRN for PAIN AND/OR INFLAMMATION, #30 TAB Prov:MARC BLACKBURN MD 01/13/18 Ciprofloxacin Hcl* (Ciprofloxacin Hcl*) 500 Mg Tablet, 500 MG PO BID for 10 Da ys, TAB Prov:CRISTOPHER SPAIN MD 01/07/18 Follow-up Plan Follow-up with [facility] wound care clinic in 1 week. Continue antibiotic for 2 weeks Daily wound dressing: Irrigated with Dakin solution, dressed with Santyl, Xeroform and Kerlix. Offload bilateral heels on heel protectors and pillows Primary Care Provider Care Physician No Primary Pending Labs Laboratory Tests Test 01/31/18 04:58 White Blood Count 4.2 10^3/ul (4.8-10.8) Red Blood Count 3.05 10^6/ul (4.70-6.10) Hemoglobin 7.7 g/dl (14.0-18.0) Hematocrit 24.8 % (42.0-52.0) Mean Corpuscular Volume 81.3 fl (82.0-101.0) Mean Corpuscular Hemoglobin 25.2 pg (29.0-33.0) Mean Corpuscular Hemoglobin Concent 31.0 g/dl (32.0-37.0) Red Cell Distribution Width 15.9 % (11.5-14.5) Platelet Count 371 10^3/UL (140-415) Mean Platelet Volume 8.6 fl (7.4-10.4) Immature Granulocytes % 0.500 % (0.001-0.429) Neutrophils % 50.0 % (39.0-77.0) Lymphocytes % 26.7 % (15.0-51.0) Monocytes % 11.5 % (0.0-11.0) Eosinophils % 10.3 % (0.0-7.0) Basophils % 1.0 % (0.0-2.0) Nucleated Red Blood Cells % 0.0 /100WBC (0.0-0.0) Immature Granulocytes # 0.020 10^3/ul (0.0-0.031) Neutrophils # 2.1 10^3/ul (1.6-7.5) Lymphocytes # 1.1 10^3/ul (0.8-2.9) Monocytes # 0.5 10^3/ul (0.3-0.9) Eosinophils # 0.4 10^3/ul (0.0-0.5) Basophils # 0.0 10^3/ul (0.0-0.1) Nucleated Red Blood Cells # 0.0 10^3/ul (0.0-0.0) Sodium Level 139 mmol/L (135-144) Potassium Level 4.4 mmol/L (3.5-5.1) Chloride Level 110 mmol/L (97-110) Carbon Dioxide Level 21 mmol/L (21-31) Anion Gap 8 (5-13) Blood Urea Nitrogen 7 mg/dl (7-20) Creatinine 0.73 mg/dl (0.61-1.24) Est Glomerular Filtrat Rate mL/min > 60 mL/min (>60) Glucose Level 97 mg/dl (70-220) Calcium Level 8.5 mg/dl (8.4-10.2) LIVIA ADAME NP Jan 31, 2018 11:21
--- NOTE | 2018-01-31 12:47 | NUR ---
JEAN spoke with Viridiana at [facility] and discussed that the d/c is on hold for now, as this patient can't leave without HH as it is ordered but not in place; she verbalized understanding CM put the transport on WILL-Call, please see the previous note for the trip information. CM will fax referral to at least 3 HH agencies and will endorse to the CM team.
--- NOTE | 2018-01-31 12:57 | NUR ---
JEAN further discussed the plan with Shaan, the listed next of kin; patient to stay and HH to be arranged for the facility; she verbalized understanding.
[2018-01-31] MEDS: LEVOFLOXACIN 500MG/D5W (PMX) 100 ML IVPB SCH (13:57)
[2018-01-31 15:28] VITALS: BP 124/72; PULSE 80; RESP 17
--- NOTE | 2018-01-31 16:09 | NUR ---
JEAN spoke with Sampson at [phone] from [facility] and they accepted the referral and can have a nurse out there on 02/02; CM noted. Fax # for Jono Erickson is [phone].
--- NOTE | 2018-01-31 16:25 | NUR ---
a/c to the case finishing machine adjuster patient can go to assisted living with home health for wound care on friday.
--- NOTE | 2018-01-31 18:25 | NUR ---
all needs met.no acute events.gave pain medication as reqested.turned the patient q 2 hours .changed the dressing as ordered.call light within reach.bed alarm on.he is resting comfortably in bed.
[2018-01-31 20:00] VITALS: BP 110/70; PULSE 98; RESP 18
[2018-01-31] MEDS: ZONISAMIDE 100 MG CAP PO SCH (21:20)
[2018-01-31] MEDS: RISPERIDONE 1 MG TAB PO SCH (21:22)
[2018-02-01 01:51] VITALS: BP 126/69; PULSE 88; RESP 18
--- NOTE | 2018-02-01 06:00 | NUR ---
RN NOTES Wound dressing change on bilateral foot wound, photos taken. Endorsed to NEELA Pradhan to take another picture of the Right malleolus. Will continue to monitor.
[2018-02-01] MEDS: ARTIFICIAL TEARS 15 ML OPH BOTH EYES SCH ×3 (06:02→20:52)
[2018-02-01] MEDS: morphine 2 MG INJ IV PRN (06:02)
[2018-02-01 08:52] VITALS: BP 110/62; PULSE 80; RESP 17
[2018-02-01] MEDS: SODIUM HYPOCHLORITE (1/40) 1 APPLIC BTL IRR SCH (09:00)
[2018-02-01] MEDS: COLLAGENASE 5 GM (UD JAR) TOP SCH (09:00)
--- NOTE | 2018-02-01 09:01 | PN ---
Date/Time of Note Date/Time of Note DATE: 02/01/18 TIME: 08:59 Assessment/Plan VTE Prophylaxis Risk score (from Nsg)>0 risk: 5 SCD applied (from Nsg): Yes Pharmacological prophylaxis: LMWH Lines/Catheters IV Catheter Type (from Nrsg): Saline Lock Urinary Cath still in place: Yes Reason Cath still needed: urinary retention, other (indicate) Assessment/Plan Hospital Course SUBJECTIVE: Again, patient was not discharged secondary to placement issues. Today as per case management not, he is going to an assisted living facility with a home health nurse to do daily wound care. No acute overnight episodes. OBJECTIVE: Vital signs-see below PHYSICAL EXAM: Constitutional: Bedbound male, not in acute distress. Psych: nl mood/affect, no complaints Head: atraumatic, normocephalic Eyes: nl conjunctiva, nl sclera ENMT: mucosa pink and moist, nl external ears & nose Neck: non-tender, supple Respiratory: clear to auscultation, normal air movement Cardiovascular: nl pulses, regular rate and rhythm Gastrointestinal: non-tender, soft, bowel sounds active in all 4 quadrants. Musculoskeletal/extremities: Paraplegic. Normal pulses,no cyanosis, no edema. Neurological: Alert oriented 3,nl speech, nl strength Skin: Bilateral heel with ulcers, covered with dressing. No oozing noted on dressing. Nl turgor ASSESSMENT/PLAN: Very unfortunate 57-year-old male with a history of paraplegia secondary to spinal cord syndrome 6 months ago, who also resides in a halfway, presented to the emergency room with worsening bilateral heel ulcers with foul-smelling drainage 1. Bilateral heel Decub ulcers -status post excisional debridement of bilateral heel decubitus. No evidence of osteomyelitis. -Wound culture grew enterococcus, will DC vancomycin and start patient on Levaquin based on sensitivity. -Continue wound care per podiatry recommendation with Dakin's irrigation/Xeroform/Kerlix dressing. 2. Paraplegia secondary to spinal disorder and back surgery 6 months ago -Exact nature of disorder and surgery unclear -Continue baclofen 3. Likely latent TB per home meds -Continue isoniazid 4. Depression -Continue home Cymbalta 5. Hypertension -Continue Coreg 6. Debility secondary to #2. -Patient resides in a halfway. 7. Chronic anemia with mild iron deficiency. -Stable H&H. Continue oral iron replacement. Prophylaxis: Lovenox/Pepcid Diet: Regular CODE STATUS: Full code Disposition: Patient can be discharged to assisted living place with home health nurse for daily wound care. As per case management note, it has been arranged and patient can be discharged today. Patient to follow-up with [facility] wound care clinic in 1 week after discharge. Patient was seen in collaboration with Dr. Awad. Exam/Review of Systems Vital Signs Vitals Vital Signs Date Temp Pulse Resp B/P (MAP) Pulse Ox O2 O2 Flow FiO2 Time Delivery Rate 02/01/18 96.5 80 17 110/62 100 Room Air 08:52 (78) Intake and Output 01/31/18 01/31/18 02/01/18 1515:00 23:00 07:00 IntakeIntake Total 1300 ml 420 ml 100 ml OutputOutput Total 2450 ml 200 ml BalanceBalance -1150 ml 220 ml 100 ml Medications Medications Current Medications IV Flush (NS 3 ml) 3 ml PER PROTOCOL IV ; Start 01/25/18 at 15:30 Ondansetron HCl (Zofran Inj) 4 mg Q6H PRN IV NAUSEA AND/OR VOMITING; Start 01/25/18 at 15:30 Acetaminophen (Tylenol Tab) 650 mg Q6H PRN PO PAIN LEVEL 1-3 OR FEVER; Start 01/25/18 at 15:30 Acetaminophen/ Hydrocodone Bitart ([place] (5/325)) 1 tab Q6H PRN PO MODERATE PAIN LEVEL 4-6 Last administered on 01/31/18at 21:21; Admin Dose 1 TAB; Start 01/25/18 at 15:30 Morphine Sulfate (morphine) 2 mg Q4H PRN IV SEVERE PAIN LEVEL 7-10 Last administered on 02/01/18at 06:02; Admin Dose 2 MG; Start 01/25/18 at 15:30 Zolpidem Tartrate (Ambien) 5 mg QHS PRN PO SLEEP; Start 01/25/18 at 15:30 Allopurinol (Zyloprim) 100 mg DAILY PO Last administered on 01/31/18at 09:25; Admin Dose 100 MG; Start 01/26/18 at 09:00 Baclofen (Lioresal) 10 mg TID PO Last administered on 01/31/18at 21:21; Admin Dose 10 MG; Start 01/25/18 at 21:00 Carvedilol (Coreg) 12.5 mg BID PO Last administered on 01/31/18 21:22; Admin Dose 12.5 MG; Start 01/25/18 at 21:00 Duloxetine HCl (Cymbalta) 30 mg DAILY PO Last administered on 01/31/18 09:25; Admin Dose 30 MG; Start 01/26/18 at 09:00 Famotidine (Pepcid) 20 mg BID PO Last administered on 01/31/18 21:21; Admin Dose 20 MG; Start 01/25/18 at 21:00 Folic Acid (Folic Acid) 1 mg DAILY PO Last administered on 01/31/18 09:25; Admin Dose 1 MG; Start 01/26/18 at 09:00 Gabapentin (Neurontin) 100 mg BID PO Last administered on 01/31/18 21:20; Admin Dose 100 MG; Start 01/25/18 at 21:00 Isoniazid (Isoniazid) 300 mg DAILY PO Last administered on 01/31/18 09:24; Admin Dose 300 MG; Start 01/26/18 at 09:00 Magnesium Oxide (Mag-Ox 400) 400 mg BID PO Last administered on 01/31/18 21:22; Admin Dose 400 MG; Start 01/25/18 at 21:00 Nystatin 1 applic BID TOP Last administered on 01/31/18 21:25; Admin Dose 1 APPLIC; Start 01/25/18 at 21:00 Pyridoxine HCl (Vitamin B6) 50 mg DAILY PO Last administered on 01/31/18 09:24; Admin Dose 50 MG; Start 01/26/18 at 09:00 Rifampin (Rifampin) 600 mg DAILY PO Last administered on 01/31/18 09:24; Admin Dose 600 MG; Start 01/26/18 at 09:00 Risperidone (Risperdal) 1 mg QHS PO Last administered on 01/31/18 21:22; Admin Dose 1 MG; Start 01/25/18 at 21:00 Zonisamide (Zonegran) 300 mg QHS PO Last administered on 01/31/18 21:20; Admin Dose 300 MG; Start 01/25/18 at 21:00 Eye Lubricant (Artificial Tears Oph) 1 drop Q8 BOTH EYES Last administered on 02/01/18 06:02; Admin Dose 1 DROP; Start 01/25/18 at 22:00 Miscellaneous Information (Pending Santyl Order For Wound Care) This patient woody... PRN PRN XX wound; Start 01/25/18 at 16:30 Vitamin A/Vitamin D (Vitamin A & D Oint) 1 applic BID TOP Last administered on 01/31/18 21:17; Admin Dose 1 APPLIC; Start 01/26/18 at 21:00 Docusate Sodium/ Ferrous Fumarate (Sangita-Sequels) 1 tab BID PO Last administered on 01/31/18 21:21; Admin Dose 1 TAB; Start 01/27/18 at 21:00 Docusate Sodium (Colace) 200 mg BID PO Last administered on 01/31/18 21:20; Admin Dose 200 MG; Start 01/27/18 at 21:00 Enoxaparin Sodium (Lovenox) 40 mg DAILY SC Last administered on 01/31/18 09:27; Admin Dose 40 MG; Start 01/28/18 at 09:00 Sodium Hypochlorite (Dakin'S (Dilute 40)) 1 applic DAILY IRR Last administered on 01/31/18 09:35; Admin Dose 1 APPLIC; Start 01/27/18 at 18:30 Collagenase (Santyl) 1 applic DAILY TOP Last administered on 01/31/18 09:24; Admin Dose 1 APPLIC; Start 01/27/18 at 17:30 Hydrocortisone (Hydrocortisone 1% Cr) 1 applic BID TOP Last administered on 01/31/18 21:24; Admin Dose 1 APPLIC; Start 01/27/18 at 21:19 Levofloxacin/ Dextrose 100 ml @ 100 mls/hr Q24H IVPB Last administered on 01/31/18at 13:57; Admin Dose 100 MLS/HR; Start 01/29/18 at 14:00 Results Result Diagram: 01/31/18 0458 01/31/18 0458 LIVIA ADAME NP Feb 01, 2018 09:01
--- NOTE | 2018-02-01 09:03 | DS ---
Date/Time of Note Date/Time of Note DATE: 02/01/18 TIME: 09:02 Discharge Summary Admission/Discharge Info Admit Date/Time Jan 26, 2018 at 08:29 Discharge Date/Time Discharge Diagnosis 1. Bilateral heel Decub ulcers-status post excisional debridement of bilateral heel decubitus. No evidence of osteomyelitis. 2. Paraplegia secondary to spinal disorder and back surgery 6 months ago 3. Likely latent TB per home meds 4. Depression 5. Hypertension 6. Debility secondary to #2. 7. Chronic anemia with mild iron deficiency. 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 X-ray right foot. FINDINGS: There is normal mineralization and alignment. No fracture or osseous lesion is identified. The joints are normal. The soft tissues are unremarkable. IMPRESSION: Unremarkable foot. 01/25/2018. X-ray left foot. FINDINGS: There is normal mineralization and alignment. No fracture or osseous lesion is identified. The joints are normal. The soft tissues are unremarkable. IMPRESSION: Unremarkable foot. 01/27/2018. Bilateral lower extremity arterial ultrasound. IMPRESSION: No focal hemodynamically significant stenosis in either lower extremity. Hx of Present Illness 09/24/2017. X-ray right foot. FINDINGS: There is normal mineralization and alignment. No fracture or osseous lesion is identified. The joints are normal. The soft tissues are unremarkable. IMPRESSION: Unremarkable foot. 01/25/2018. X-ray left foot. FINDINGS: There is normal mineralization and alignment. No fracture or osseous lesion is identified. The joints are normal. The soft tissues are unremarkable. IMPRESSION: Unremarkable foot. 01/27/2018. Bilateral lower extremity arterial ultrasound. IMPRESSION: No focal hemodynamically significant stenosis in either lower extremity. Hospital Course Very unfortunate 57-year-old male with a history of paraplegia secondary to spinal cord syndrome 6 months ago, who also resides in a nursing/assisted living home, presented to the emergency room with worsening bilateral heel ulcers with foul-smelling drainage. Patient was started on IV antimicrobials. Arterial studies unremarkable. He had podiatry evaluation and underwent bedside excisional debridement of bilateral heel decubitus ulcers. There was no evidence of osteomyelitis in the radiographs. He was continued on daily wound care with Dakin's irrigation followed by Santyl, Xeroform and Kerlix dressing. Wound culture grew entero- coccus sensitive to fluoroquinolone. Patient did well. He was continued on home medication for underlying comorbidities. There was no leukocytosis or fever. Wound dressing intact with no further oozing or foul-smelling. Patient is medically stable from podiatry standpoint to discharge to a correction with continuation of wound care and oral Levaquin and follow-up at [facility] wound care clinic. Patient was accepted to an assisted living place where a home health nurse can go there and do wound care daily. Approximately 60 minutes was spent on coordinating the discharge on this patient. Patient was seen in collaboration with Dr. Melara [facility] Active Scripts Levofloxacin* (Levofloxacin*) 500 Mg Tablet, 500 MG PO DAILY, #14 TAB Prov:DEEPLIVIAMITCHELL Eaton INSURANCE CLAIMS ANALYST 01/29/18 Reported Medications Nitroglycerin* (Nitro-Bid* Oint (30gm)) 1 Inch Oint, 1 INCH TD Q6 PRN for DYSURIA, TUB 01/25/18 Lidocaine (Lidocaine Topical) 30 Ml Jel, 30 ML TP PRN PRN for IF CATHETER REMAINS OCCULUDED 01/25/18 Famotidine* (Famotidine*) 20 Mg Tablet, 20 MG PO BID, #60 TAB 01/25/18 Folic Acid* (Folic Acid*) 1 Mg Tablet, 1 MG PO DAILY, TAB 01/25/18 Pyridoxine Hcl* (Pyridoxine Hcl*) 50 Mg Tablet, 50 MG PO DAILY, TAB 01/25/18 Zonisamide* (Zonegran*) 100 Mg Capsule, 300 MG PO QHS, CAP 01/25/18 Nystatin* (Nyamyc* Powder) 1 Applic Powder, 1 APPLIC TOP BID, EA 01/25/18 Polyvinyl Alcohol (Tears Again) 15 Ml Drops, 1 DRP BOTH EYES Q8, BOTTLE 01/07/18 Hydrocodone/Acetaminophen ([place] 10-325 Tablet) 1 Each Tablet, 1 EACH PO Q6 PRN for PAIN, TAB 01/07/18 Risperidone* (Risperidone*) 1 Mg Tablet, 1 MG PO QHS, TAB 01/07/18 Magnesium Oxide* (Magnesium Oxide*) 400 Mg Tablet, 400 MG PO BID, TAB 01/07/18 Gabapentin* (Gabapentin*) 100 Mg Capsule, 100 MG PO BID, #90 CAP 01/07/18 Petrolatum,White* (Vaseline*) 5 Gm Oint.pack, 1 APPLIC TOP BID, PACKET 01/07/18 Carvedilol* (Carvedilol*) 12.5 Mg Tablet, 12.5 MG PO BID, #60 TAB 01/07/18 Duloxetine Hcl* (Duloxetine Hcl*) 30 Mg Capsule.dr, 30 MG PO DAILY, #30 CAP 01/07/18 Baclofen* (Baclofen*) 10 Mg Tablet, 10 MG PO TID, TAB 01/07/18 Allopurinol* (Allopurinol*) 100 Mg Tablet, 100 MG PO DAILY, TAB 01/07/18 Rifampin* (Rifampin*) 300 Mg Cap, 600 MG PO DAILY, CAP 01/07/18 Isoniazid* (Isoniazid*) 300 Mg Tablet, 300 MG PO DAILY, TAB 01/07/18 Bisacodyl (Dulcolax) 10 Mg Supp.rect, 10 MG RC DAILY PRN for CONSTIPATION, SUPP.RECT 01/07/18 Docusate Sodium* (Colace*) 100 Mg Capsule, 100 MG PO BID PRN for CONSTIPATION, #60 CAP 01/07/18 Discontinued Reported Medications Zonisamide* (Zonegran*) 100 Mg Capsule, 200 MG PO DAILY, CAP TAKE TWO CAPS STARTING - THRU 01-16-18 THEN THREE CAPS AFTER 01/07/18 Zonisamide* (Zonegran*) 100 Mg Capsule, 100 MG PO DAILY, CAP TAKE ONE CAP THRU --18 01/07/18 Amantadine Hcl* (Amantadine Hcl*) 100 Mg Capsule, 100 MG PO BID, #60 CAP 01/07/18 Polyvinyl Alcohol (Tears Again) 15 Ml Drops, 1 DRP BOTH EYES QID, BOTTLE 01/07/18 Discontinued Scripts Ondansetron Hcl* (Zofran*) 4 Mg Tablet, 4 MG PO Q8H PRN for NAUSEA AND/OR VOMITING, #30 TAB Prov:AMRC BLACKBURN MD 01/13/18 Ibuprofen* (Motrin*) 600 Mg Tab, 600 MG PO Q8 PRN for PAIN AND/OR INFLAMMATION, #30 TAB Prov:MARC BLACKBURN MD 01/13/18 Ciprofloxacin Hcl* (Ciprofloxacin Hcl*) 500 Mg Tablet, 500 MG PO BID for 10 Days, TAB Prov:CRISTOPHER SPAIN MD 11/7/18 Follow-up Plan Follow-up with [facility] wound care clinic in 1 week. Continue antibiotic for 2 weeks Daily wound dressing: Irrigated with Dakin solution, dressed with Santyl, Xeroform and Kerlix. Offload bilateral heels on heel protectors and pillows Primary Care Provider Care Physician LIVIA Geronimo NP Feb 01, 2018 09:03
[2018-02-01] MEDS: DOCUSATE SODIUM 100 MG CAP PO SCH ×2 (09:19→20:51)
[2018-02-01] MEDS: ENOXAPARIN 40 MG/0.4 ML SYG SC SCH (09:19)
[2018-02-01] MEDS: FERROUS FUMARATE (SR) TAB PO SCH ×2 (09:20→20:52)
[2018-02-01] MEDS: DULOXETINE 30 MG CAP DR PO SCH (09:20)
[2018-02-01] MEDS: FOLIC ACID 1 MG TAB PO SCH (09:20)
[2018-02-01] MEDS: RIFAMPIN 300 MG CAP PO SCH (09:21)
[2018-02-01] MEDS: FAMOTIDINE 20 MG TAB PO SCH ×2 (09:21→20:51)
[2018-02-01] MEDS: PYRIDOXINE 50 MG TAB PO SCH (09:21)
[2018-02-01] MEDS: MAGNESIUM OXIDE 400 MG TAB PO SCH ×2 (09:21→20:51)
[2018-02-01] MEDS: ALLOPURINOL 100 MG TAB PO SCH (09:21)
[2018-02-01] MEDS: ISONIAZID 300 MG TAB PO SCH (09:21)
[2018-02-01] MEDS: GABAPENTIN 100 MG CAP PO SCH ×2 (09:21→20:51)
[2018-02-01] MEDS: BACLOFEN 10 MG TAB PO SCH ×3 (09:21→20:51)
[2018-02-01] MEDS: HYDROCORTISONE 1% 28 GM CR TOP SCH ×2 (09:22→20:53)
[2018-02-01] MEDS: NYSTATIN 15 GM POWDER BTL TOP SCH ×2 (09:22→20:53)
[2018-02-01] MEDS: VITAMIN A & D 5 GM OINT PACKET TOP SCH ×2 (09:22→20:52)
[2018-02-01] MEDS: BALSAM PERU/CASTOR OIL 60 GM TUBE TOP SCH (09:29)
--- NOTE | 2018-02-01 11:10 | NUR ---
Transfer to: [facility] [address] [place] [address] Room assignment 117A Report [phone] Electric Cell Tender confirmed bed availability with Matt. According to Peg from [facility], will provide wound care at the facility on 02/02/2018. PN: [phone] Transportation [employer] [phone] E. T. A : 4:00pm Trip # [id number] Charge Nurse Bethany was notified. Addendum: 02/01/18 at 1415 by VENESSA LEYVA RN, CM Electric Cell Tender faxed the # [id number] form to Viridiana at FX: [phone], I confirmed with Viridiana that she received the form. Patient okay to be admitted at [facility] according to Viridiana PN: [phone] Addendum: 02/01/18 at 1550 by VENESSA LEYVA RN, CM 15:20 Electric Cell Tender received a call from Saul ([phone] ) the solid waste facility operator from [facility] stating he cannot accept the patient today. If the patient has a decub 2+, the facility is not suitable for the patient. According to Saul he will sent a nurse from [facility] to evaluate the patient tomorrow 02/02/18 he does not have a time frame. Electric Cell Tender notified Karol at x [phone]. Please follow up with Saul at [phone], thank you. Addendum: 02/01/18 at 1552 by VENESSA LEYVA RN Transportation with [employer] was cancelled at 15:40pm
[2018-02-01] MEDS: LEVOFLOXACIN 500MG/D5W (PMX) 100 ML IVPB SCH (13:25)
[2018-02-01 15:10] VITALS: BP 120/65; PULSE 84; RESP 18
--- NOTE | 2018-02-01 16:28 | NUR ---
Discharge on HOLD 15:20 Soil And Plant Scientist received a call from Saul ([phone] ) the parts administrator from [facility] stating he cannot accept the patient today. If the patient has a decub 2+, the facility is not suitable for the patient. According to Saul he will sent a nurse from [facility] to evaluate the patient tomorrow 02/02/18 he does not have a time frame at the present time. Soil And Plant Scientist notified Karol at x [phone]. Please follow up tomorrow . Thanks.
[2018-02-01] MEDS: HYDROCODONE/APAP (5/325) TAB PO PRN (18:19)
--- NOTE | 2018-02-01 18:30 | NUR ---
Pt was explained by charge nurse that discharge was hold, need to reevaluate pt skin condition , can not accept dermal injury >2. pt verbalized understanding. photo taken on sacrococcyx, Lt upper back.pain med given w/ relief.
[2018-02-01 20:00] VITALS: BP 122/70; PULSE 78; RESP 18
--- NOTE | 2018-02-01 20:05 | NUR ---
Pt has no Iv access, RN attempted to insert new IV access, however, pt refused and wants IV insertion tomorrow prior to receiving his IV antibiotoc. Explained to pt importance of having standby heplock especially for his morphine IV . Per pt, he will just take hi [place] pill because he wants to rest from being poked. Notified DR Rizvi and he said its okay. Pt was updated and appreciative. noted. Addendum: 02/02/18 at 0614 by RAY PINEDA RN no significant changes overnight. pt remained afebrile with vss. medicated with norco for pain. wound care on sacrococcyx done as ordered. turned and repositioned q2 with frequent incontinent checks. hourly rounding done. will endorse to dayshift RN to f/u with CM pt's discharge today. A nurse from previous facility will come and assess pt today to re-eval pt's eligibility for previous facility. will continue to monitor and will endorse accordingly.
[2018-02-01] MEDS: ZONISAMIDE 100 MG CAP PO SCH (20:51)
[2018-02-01] MEDS: RISPERIDONE 1 MG TAB PO SCH (20:51)
[2018-02-02] MEDS: HYDROCODONE/APAP (5/325) TAB PO PRN ×2 (00:22→06:41)
[2018-02-02 02:00] VITALS: BP 92/58; PULSE 88; RESP 16
[2018-02-02] MEDS: ARTIFICIAL TEARS 15 ML OPH BOTH EYES SCH ×3 (05:25→22:16)
[2018-02-02 08:15] VITALS: BP 134/73; PULSE 71; RESP 16
[2018-02-02] MEDS: PYRIDOXINE 50 MG TAB PO SCH (09:13)
[2018-02-02] MEDS: FERROUS FUMARATE (SR) TAB PO SCH ×2 (09:13→20:39)
[2018-02-02] MEDS: ISONIAZID 300 MG TAB PO SCH (09:13)
[2018-02-02] MEDS: MAGNESIUM OXIDE 400 MG TAB PO SCH ×2 (09:13→20:42)
[2018-02-02] MEDS: GABAPENTIN 100 MG CAP PO SCH ×2 (09:13→20:40)
[2018-02-02] MEDS: RIFAMPIN 300 MG CAP PO SCH (09:14)
[2018-02-02] MEDS: FAMOTIDINE 20 MG TAB PO SCH ×2 (09:14→20:42)
[2018-02-02] MEDS: DOCUSATE SODIUM 100 MG CAP PO SCH ×2 (09:14→20:39)
[2018-02-02] MEDS: ALLOPURINOL 100 MG TAB PO SCH (09:14)
[2018-02-02] MEDS: BACLOFEN 10 MG TAB PO SCH ×3 (09:15→20:40)
[2018-02-02] MEDS: DULOXETINE 30 MG CAP DR PO SCH (09:15)
[2018-02-02] MEDS: FOLIC ACID 1 MG TAB PO SCH (09:15)
[2018-02-02] MEDS: ENOXAPARIN 40 MG/0.4 ML SYG SC SCH (09:16)
[2018-02-02] MEDS: VITAMIN A & D 5 GM OINT PACKET TOP SCH ×3 (09:17→20:43)
--- NOTE | 2018-02-02 09:26 | PN ---
Date/Time of Note Date/Time of Note DATE: 02/02/18 TIME: 09:23 Assessment/Plan VTE Prophylaxis Risk score (from Nsg)>0 risk: 3 SCD applied (from Nsg): Yes Pharmacological prophylaxis: LMWH Lines/Catheters IV Catheter Type (from Nrsg): Saline Lock Urinary Cath still in place: Yes Reason Cath still needed: urinary retention, other (indicate) Assessment/Plan Hospital Course SUBJECTIVE: No acute overnight episodes. Again patient discharge gets canceled secondary to placement issues. OBJECTIVE: Vital signs-see below PHYSICAL EXAM: Constitutional: Bedbound male, not in acute distress. Psych: nl mood/affect, no complaints Head: atraumatic, normocephalic Eyes: nl conjunctiva, nl sclera ENMT: mucosa pink and moist, nl external ears & nose Neck: non-tender, supple Respiratory: clear to auscultation, normal air movement Cardiovascular: nl pulses, regular rate and rhythm Gastrointestinal: non-tender, soft, bowel sounds active in all 4 quadrants. Musculoskeletal/extremities: Paraplegic. Normal pulses,no cyanosis, no edema. Neurological: Alert oriented 3,nl speech, nl strength Skin: Bilateral heel with ulcers, covered with dressing. No oozing noted on dressing. Nl turgor ASSESSMENT/PLAN: Very unfortunate 57-year-old male with a history of paraplegia secondary to spinal cord syndrome 6 months ago, who also resides in [place], presented to the emergency room with worsening bilateral heel ulcers with foul-smelling drainage 1. Bilateral heel Decub ulcers -status post excisional debridement of bilateral heel decubitus. No evidence of osteomyelitis. -Continue Levaquin. -Continue wound care per podiatry recommendation with Dakin's irrigation/Xeroform/Kerlix dressing. 2. Paraplegia secondary to spinal disorder and back surgery 6 months ago -Exact nature of disorder and surgery unclear -Continue baclofen 3. Likely latent TB per home meds -Continue isoniazid 4. Depression -Continue home Cymbalta 5. Hypertension -Continue Coreg 6. Debility secondary to #2. -Patient resides in [place]. 7. Chronic anemia with mild iron deficiency. -Stable H&H. Continue oral iron replacement. Prophylaxis: Lovenox/Pepcid Diet: Regular CODE STATUS: Full code Disposition: Medically cleared for discharge. Pending placement.. Patient to follow-up with [facility] wound care clinic in 1 week after discharge. Patient was seen in collaboration with Dr. Awad. Cont Hosp Indication/DC Plan: Placement Exam/Review of Systems Vital Signs Vitals Vital Signs Date Temp Pulse Resp B/P (MAP) Pulse Ox O2 O2 Flow FiO2 Time Delivery Rate 02/02/18 98.0 71 16 134/73 99 08:15 (93) 02/01/18 Room Air 15:10 Intake and Output 02/01/18 02/01/18 02/02/18 1515:00 23:00 07:00 IntakeIntake Total 1170 ml 600 ml 900 ml OutputOutput Total 900 ml 600 ml 500 ml BalanceBalance 270 ml 0 ml 400 ml Medications Medications Current Medications IV Flush (NS 3 ml) 3 ml PER PROTOCOL IV ; Start 01/25/18 at 15:30 Ondansetron HCl (Zofran Inj) 4 mg Q6H PRN IV NAUSEA AND/OR VOMITING; Start 01/25/18 at 15:30 Acetaminophen (Tylenol Tab) 650 mg Q6H PRN PO PAIN LEVEL 1-3 OR FEVER; Start 01/25/18 at 15:30 Acetaminophen/ Hydrocodone Bitart ([place] (5/325)) 1 tab Q6H PRN PO MODERATE PAIN LEVEL 4-6 Last administered on 02/02/18at 06:41; Admin Dose 1 TAB; Start 01/25/18 at 15:30 Morphine Sulfate (morphine) 2 mg Q4H PRN IV SEVERE PAIN LEVEL 7-10 Last administered on 02/01/18at 06:02; Admin Dose 2 MG; Start 01/25/18 at 15:30 Zolpidem Tartrate (Ambien) 5 mg QHS PRN PO SLEEP; Start 01/25/18 at 15:30 Allopurinol (Zyloprim) 100 mg DAILY PO Last administered on 02/01/18at 09:21; Admin Dose 100 MG; Start 01/26/18 at 09:00 Baclofen (Lioresal) 10 mg TID PO Last administered on 02/01/18at 20:51; Admin Dose 10 MG; Start 01/25/18 at 21:00 Carvedilol (Coreg) 12.5 mg BID PO Last administered on 02/01/18at 20:52; Admin Dose 12.5 MG; Start 01/25/18 at 21:00 Duloxetine HCl (Cymbalta) 30 mg DAILY PO Last administered on 02/01/18 09:20; Admin Dose 30 MG; Start 01/26/18 at 09:00 Famotidine (Pepcid) 20 mg BID PO Last administered on 02/01/18 20:51; Admin Dose 20 MG; Start 01/25/18 at 21:00 Folic Acid (Folic Acid) 1 mg DAILY PO Last administered on 02/01/18 09:20; Ad min Dose 1 MG; Start 01/26/18 at 09:00 Gabapentin (Neurontin) 100 mg BID PO Last administered on 02/01/18 20:51; Admin Dose 100 MG; Start 01/25/18 at 21:00 Isoniazid (Isoniazid) 300 mg DAILY PO Last administered on 02/01/18 09:21; Admin Dose 300 MG; Start 01/26/18 at 09:00 Magnesium Oxide (Mag-Ox 400) 400 mg BID PO Last administered on 02/01/18 20:51; Admin Dose 400 MG; Start 01/25/18 at 21:00 Nystatin 1 applic BID TOP Last administered on 02/01/18 20:53; Admin Dose 1 APPLIC; Start 01/25/18 at 21:00 Pyridoxine HCl (Vitamin B6) 50 mg DAILY PO Last administered on 02/01/18 09:21; Admin Dose 50 MG; Start 01/26/18 at 09:00 Rifampin (Rifampin) 600 mg DAILY PO Last administered on 02/01/18 09:21; Admin Dose 600 MG; Start 01/26/18 at 09:00 Risperidone (Risperdal) 1 mg QHS PO Last administered on 02/01/18 20:51; Admin Dose 1 MG; Start 01/25/18 at 21:00 Zonisamide (Zonegran) 300 mg QHS PO Last administered on 02/01/18 20:51; Admin Dose 300 MG; Start 01/25/18 at 21:00 Eye Lubricant (Artificial Tears Oph) 1 drop Q8 BOTH EYES Last administered on 02/02/18 05:25; Admin Dose 1 DROP; Start 01/25/18 at 22:00 Miscellaneous Information (Pending [facility] Order For Wound Care) This patient woody... PRN PRN XX wound; Start 01/25/18 at 16:30 Vitamin A/Vitamin D (Vitamin A & D Oint) 1 applic BID TOP Last administered on 02/01/18 20:52; Admin Dose 1 APPLIC; Start 01/26/18 at 21:00 Docusate Sodium/ Ferrous Fumarate (Sangita-Sequels) 1 tab BID PO Last administered on 02/01/18 20:52; Admin Dose 1 TAB; Start 01/27/18 at 21:00 Docusate Sodium (Colace) 200 mg BID PO Last administered on 02/01/18 20:51; Admin Dose 200 MG; Start 01/27/18 at 21:00 Enoxaparin Sodium (Lovenox) 40 mg DAILY SC Last administered on 02/01/18 09:19; Admin Dose 40 MG; Start 01/28/18 at 09:00 Sodium Hypochlorite (Dakin'S (Dilute )) 1 applic DAILY IRR Last administered on 01/31/18 09:35; Admin Dose 1 APPLIC; Start 01/27/18 at 18:30 Collagenase (Santyl) 1 applic DAILY TOP Last administered on 01/31/18 09:24; Admin Dose 1 APPLIC; Start 01/27/18 at 17:30 Hydrocortisone (Hydrocortisone 1% Cr) 1 applic BID TOP Last administered on 02/01/18 20:53; Admin Dose 1 APPLIC; Start 01/27/18 at 21:19 Levofloxacin/ Dextrose 100 ml @ 100 mls/hr Q24H IVPB Last administered on 02/01/18 13:25; Admin Dose 100 MLS/HR; Start 01/29/18 at 14:00 Results Result Diagram: 01/31/18 0458 01/31/18 0458 LIVIA ADAME NP Feb 02, 2018 09:26
--- NOTE | 2018-02-02 11:09 | NUR ---
WOUND CONSULT TO REEVALUATE COCCYX WOUND: Patient last seen by wound nurse on 01/26/19. 57-year-old male with a history of paraplegia reportedly for the last 6 months secondary to spinal cord syndrome presents to the ER with ulcers on both his feet. Patient awake, alert, oriented. He is able to turn with moderate assist. Benavidez cath in place. Incontinent of bowel. Patient seen by Power Hammer Operator Dr. Courtney for bilateral lower extremities wounds. Sacrococcyx Stage 3 pressure injury. Condition present on admission. 11.5cm x 6cm x 0.2cm. Wound bed with 20% black non-viable tissue. Periwound pinkish resurfaced sure tissue. Small serosanguineous drainage. No odor. Modified treatment recommendations: Cleanse area with normal saline, pat dry, apply Santyl ointment to wound bed. Then, cover with cut-to-fit adaptic and dry dressing. Change daily. and cover with foam border dressing daily and as needed. - Low air loss surface. - Reposition every 2 hours. - Float heels off bed with pillows. Discussed assessment and plan of care with RNFrederick. RN to obtain wound care recommendations from . MARKO MarrufoN RN CWOCN
[2018-02-02] MEDS: SODIUM HYPOCHLORITE (1/40) 1 APPLIC BTL IRR SCH (11:22)
[2018-02-02] MEDS: NYSTATIN 15 GM POWDER BTL TOP SCH ×2 (11:22→20:41)
[2018-02-02] MEDS: BALSAM PERU/CASTOR OIL 60 GM TUBE TOP SCH (11:23)
[2018-02-02] MEDS: HYDROCORTISONE 1% 28 GM CR TOP SCH ×3 (11:23→20:42)
[2018-02-02] MEDS: COLLAGENASE 5 GM (UD JAR) TOP SCH (11:23)
--- NOTE | 2018-02-02 12:18 | NUR ---
JEAN Notes: [facility] spoke with Saul PN: [phone] whom requested to fax the wound measurement, will review and will decide if a Nurse will still be sent here to assess the patient or not. Will folow the case. Addendum: 02/02/18 at 1500 by CHARLOTTE KIRKPATRICK RN, CM Received a call from [facility] of [place] whom stated that they were not able to take the patient due to pressure ulcer of Stage 3, as per their protocol no stage 2 beyond that they can accept. Will look for another facility. Addendum: 02/02/18 at 1532 by CHARLOTTE KIRKPATRICK RN, CM T/c made to [facility] spoke with Jessica whom stated that she cannot accept the patient this time and also called [facility] PN: [phone] spoke with Chi whom stated that they don't have male bed this time. Will look for more SNF that could accept this patient.
[2018-02-02] MEDS: LEVOFLOXACIN 500 MG TAB PO SCH (14:38)
[2018-02-02 14:48] VITALS: BP 120/66; RESP 16
--- NOTE | 2018-02-02 17:46 | NUR ---
Awaiting for SNF placement, routine wound dressing changed done repositioned q2h kept clean dry. No sob , no acute distress and VS within range will continue POC.
[2018-02-02 20:31] VITALS: BP 118/71; PULSE 90; RESP 18
[2018-02-02] MEDS: ZONISAMIDE 100 MG CAP PO SCH (20:39)
[2018-02-02] MEDS: RISPERIDONE 1 MG TAB PO SCH (20:40)
[2018-02-03] MEDS: HYDROCODONE/APAP (5/325) TAB PO PRN ×2 (00:08→06:11)
[2018-02-03 02:41] VITALS: BP 104/63; PULSE 99; RESP 16
[2018-02-03] MEDS: ARTIFICIAL TEARS 15 ML OPH BOTH EYES SCH ×3 (05:46→21:16)
[2018-02-03] MEDS: LEVOFLOXACIN 500 MG TAB PO SCH (05:46)
--- NOTE | 2018-02-03 06:32 | NUR ---
End of shift Report: Sleeping on bed in comfortable position. No sob. No resp distress. Afebrile. denies pain/discomfort. Wound care done by am shift nurse. Dressing dry and intact. Pt still refused to insert IV line this am. Per pt he does not want this early. Will endorse to am shift nurse.Pt on PO ATB Therapy well-juan josé. No A/R noted. Awaiting SNF placement. No acute events overnight. Turned and repositioned. Kept clean and dry. Kept comfortable at all times. Fall precaution implemented. [place] 1 tab PO given 2x for pain with ND 6/10 well-juan josé and effective. Needs attended and anticipated. Will continue to monitor till the rest of the shift. Will endorse accordingly.
[2018-02-03 07:50] VITALS: BP 115/68; PULSE 83; RESP 16
[2018-02-03] MEDS: SODIUM HYPOCHLORITE (1/40) 1 APPLIC BTL IRR SCH (08:48)
[2018-02-03] MEDS: BACLOFEN 10 MG TAB PO SCH ×3 (08:48→21:16)
[2018-02-03] MEDS: FAMOTIDINE 20 MG TAB PO SCH ×2 (08:48→21:16)
[2018-02-03] MEDS: COLLAGENASE 5 GM (UD JAR) TOP SCH (08:48)
[2018-02-03] MEDS: DOCUSATE SODIUM 100 MG CAP PO SCH ×2 (08:49→21:16)
[2018-02-03] MEDS: RIFAMPIN 300 MG CAP PO SCH (08:49)
[2018-02-03] MEDS: ISONIAZID 300 MG TAB PO SCH (08:49)
[2018-02-03] MEDS: MAGNESIUM OXIDE 400 MG TAB PO SCH ×2 (08:49→21:16)
[2018-02-03] MEDS: PYRIDOXINE 50 MG TAB PO SCH (08:49)
[2018-02-03] MEDS: ALLOPURINOL 100 MG TAB PO SCH (08:49)
[2018-02-03] MEDS: DULOXETINE 30 MG CAP DR PO SCH (08:49)
[2018-02-03] MEDS: FERROUS FUMARATE (SR) TAB PO SCH ×2 (08:49→21:16)
[2018-02-03] MEDS: GABAPENTIN 100 MG CAP PO SCH ×2 (08:49→21:16)
[2018-02-03] MEDS: BALSAM PERU/CASTOR OIL 60 GM TUBE TOP SCH (08:51)
[2018-02-03] MEDS: NYSTATIN 15 GM POWDER BTL TOP SCH ×2 (08:51→21:00)
[2018-02-03] MEDS: ENOXAPARIN 40 MG/0.4 ML SYG SC SCH (08:51)
[2018-02-03] MEDS: HYDROCORTISONE 1% 28 GM CR TOP SCH ×2 (08:51→21:22)
[2018-02-03] MEDS: FOLIC ACID 1 MG TAB PO SCH (08:53)
[2018-02-03] MEDS: VITAMIN A & D 5 GM OINT PACKET TOP SCH ×2 (09:15→21:16)
[2018-02-03] MEDS ORDERED: SOD CHLORIDE 0.9% 250 ML IV* ONE (11:07)
--- NOTE | 2018-02-03 11:28 | PN ---
Date/Time of Note Date/Time of Note DATE: 02/03/18 TIME: 11:26 Assessment/Plan VTE Prophylaxis Risk score (from Ns)>0 risk: 4 SCD applied (from Ns): Yes Pharmacological prophylaxis: NA/contraindicated Pharm contraindication: bleeding Lines/Catheters IV [facility]from [facility] Saline Lock Urinary Cath still in place: Yes Reason Cath still needed: pres ulcer contaminated by urine Assessment/Plan Hospital Course SUBJECTIVE: No acute overnight episodes. OBJECTIVE: Vital signs-see below PHYSICAL EXAM: Constitutional: Bedbound male, not in acute distress. Psych: nl mood/affect, no complaints Head: atraumatic, normocephalic Eyes: nl conjunctiva, nl sclera ENMT: mucosa pink and moist, nl external ears & nose Neck: non-tender, supple Respiratory: clear to auscultation, normal air movement Cardiovascular: nl pulses, regular rate and rhythm Gastrointestinal: non-tender, soft, bowel sounds active in all 4 quadrants. Musculoskeletal/extremities: Paraplegic. Normal pulses,no cyanosis, no edema. Neurological: Alert oriented 3,nl speech, nl strength Skin: Bilateral heel with ulcers, covered with dressing. No oozing noted on dressing. Nl turgor ASSESSMENT/PLAN: Very unfortunate 57-year-old male with a history of paraplegia secondary to spinal cord syndrome 6 months ago, who also resides in a care home, presented to the emergency room with worsening bilateral heel ulcers with foul-smelling drainage 1. Bilateral heel Decub ulcers -status post excisional debridement of bilateral heel decubitus. No evidence of osteomyelitis. -Continue Levaquin. -Continue wound care per podiatry recommendation with Dakin's i rrigation/Xeroform/Kerlix dressing. 2. Paraplegia secondary to spinal disorder and back surgery 6 months ago -Exact nature of disorder and surgery unclear -Continue baclofen 3. Likely latent TB per home meds -Continue isoniazid 4. Depression -Continue home Cymbalta 5. Hypertension -Continue Coreg 6. Debility secondary to #2. -Patient resides in a care home. 7. Chronic anemia with mild iron deficiency. -H&H dropped, likely secondary to blood loss from chronic wound. Recommend guillen sfusing 1 unit and continuation of iron replacement. -Hold Lovenox today. Repeat H&H after transfusion. Prophylaxis:SCDs/Pepcid Diet: Regular CODE STATUS: Full code Disposition: Today, we will transfuse patient with 1 unit of PRBC and will repeat H&H after transfusion. Patient is also awaiting for custodial facility placement. Patient to follow-up with [facility] wound care clinic in 1 week after discharge. Patient was seen in collaboration with Dr. Awad. Exam/Review of Systems Vital Signs Vitals Vital Signs Date Temp Pulse Resp B/P (MAP) Pulse Ox O2 O2 Flow FiO2 Time Delivery Rate 02/03/18 98.1 83 16 115/68 97 Room Air 07:50 (84) Intake and Output 02/02/18 02/02/18 02/03/18 1515:00 23:00 07:00 IntakeIntake Total 1520 ml 920 ml OutputOutput Total 700 ml 1000 ml BalanceBalance 820 ml -80 ml Medications Medications Current Medications IV Flush (NS 3 ml) 3 ml PER PROTOCOL IV ; Start 01/25/18 at 15:30 Ondansetron HCl (Zofran Inj) 4 mg Q6H PRN IV NAUSEA AND/OR VOMITING; Start 01/25/18 at 15:30 Acetaminophen (Tylenol Tab) 650 mg Q6H PRN PO PAIN LEVEL 1-3 OR FEVER; Start 01/25/18 at 15:30 Acetaminophen/ Hydrocodone Bitart ([place] (5/325)) 1 tab Q6H PRN PO MODERATE PAIN LEVEL 4-6 Last administered on 02/03/18at 06:11; Admin Dose 1 TAB; Start 01/25/18 at 15:30 Morphine Sulfate (morphine) 2 mg Q4H PRN IV SEVERE PAIN LEVEL 7-10 Last administered on 02/01/18at 06:02; Admin Dose 2 MG; Start 01/25/18 at 15:30 Allopurinol (Zyloprim) 100 mg DAILY PO Last administered on 02/03/18at 08:49; Admin Dose 100 MG; Start 01/26/18 at 09:00 Baclofen (Lioresal) 10 mg TID PO Last administered on 02/03/18at 08:48; Admin Dose 10 MG; Start 01/25/18 at 21:00 Carvedilol (Coreg) 12.5 mg BID PO Last administered on 02/03/18at 08:50; Admin Dose 12.5 MG; Start 01/25/18 at 21:00 Duloxetine HCl (Cymbalta) 30 mg DAILY PO Last administered on 02/03/18 08:49; Admin Dose 30 MG; Start 01/26/18 at 09:00 Famotidine (Pepcid) 20 mg BID PO Last administered on 02/03/18 08:48; Admin Dose 20 MG; Start 01/25/18 at 21:00 Folic Acid (Folic Acid) 1 mg DAILY PO Last administered on 02/03/18 08:53; Admin Dose 1 MG; Start 01/26/18 at 09:00 Gabapentin (Neurontin) 100 mg BID PO Last administered on 02/03/18 08:49; Admin Dose 100 MG; Start 01/25/18 at 21:00 Isoniazid (Isoniazid) 300 mg DAILY PO Last administered on 02/03/18 08:49; Admin Dose 300 MG; Start 01/26/18 at 09:00 Magnesium Oxide (Mag-Ox 400) 400 mg BID PO Last administered on 02/03/18 08:49; Admin Dose 400 MG; Start 01/25/18 at 21:00 Nystatin 1 applic BID TOP Last administered on 02/03/18 08:51; Admin Dose 1 APPLIC; Start 01/25/18 at 21:00 Pyridoxine HCl (Vitamin B6) 50 mg DAILY PO Last administered on 02/03/18 08:49; Admin Dose 50 MG; Start 01/26/18 at 09:00 Rifampin (Rifampin) 600 mg DAILY PO Last administered on 02/03/18 08:49; Admin Dose 600 MG; Start 01/26/18 at 09:00 Risperidone (Risperdal) 1 mg QHS PO Last administered on 02/02/18 20:40; Admin Dose 1 MG; Start 01/25/18 at 21:00 Zonisamide (Zonegran) 300 mg QHS PO Last administered on 02/02/18 20:39; Admin Dose 300 MG; Start 01/25/18 at 21:00 Eye Lubricant (Artificial Tears Oph) 1 drop Q8 BOTH EYES Last administered on 02/03/18 05:46; Admin Dose 1 DROP; Start 01/25/18 at 22:00 Miscellaneous Information (Pending [facility] Order For Wound Care) This patient woody... PRN PRN XX wound; Start 01/25/18 at 16:30 Vitamin A/Vitamin D (Vitamin A & D Oint) 1 applic BID TOP Last administered on 02/03/18 09:15; Admin Dose 1 APPLIC; Start 01/26/18 at 21:00 Docusate Sodium/ Ferrous Fumarate (Sangita-Sequels) 1 tab BID PO Last administered on 02/03/18 08:49; Admin Dose 1 TAB; Start 01/27/18 at 21:00 Docusate Sodium (Colace) 200 mg BID PO Last administered on 02/03/18 08:49; Admin Dose 200 MG; Start 01/27/18 at 21:00 Enoxaparin Sodium (Lovenox) 40 mg DAILY SC Last administered on 02/03/18 08:51; Admin Dose 40 MG; Start 01/28/18 at 09:00; Status Hold Sodium Hypochlorite (Dakin'S (Dilute )) 1 applic DAILY IRR Last administered on 02/03/18 08:48; Admin Dose 1 APPLIC; Start 01/27/18 at 18:30 Collagenase (Santyl) 1 applic DAILY TOP Last administered on 02/03/18 08:48; Admin Dose 1 APPLIC; Start 01/27/18 at 17:30 Hydrocortisone (Hydrocortisone 1% Cr) 1 applic BID TOP Last administered on 02/03/18 08:51; Admin Dose 1 APPLIC; Start 01/27/18 at 21:19 Levofloxacin (Levaquin) 500 mg DAILY@06 PO Last administered on 02/03/18at 05:46; Admin Dose 500 MG; Start 02/02/18 at 14:00; Stop 02/12/18 at 13:59 Results Result Diagram: 01/31/18 0458 01/31/18 0458 LIVIA ADAME NP Feb 03, 2018 11:28
[2018-02-03] MEDS: morphine 2 MG INJ IV PRN ×2 (14:28→21:36)
[2018-02-03 14:35] VITALS: BP 115/68; PULSE 89; RESP 16
--- NOTE | 2018-02-03 14:40 | NUR ---
RN Notes Started Blood transfusion 1unit red pack cell. Consent was signed. Reinforce teaching from [employer]. Explain possible adverse effect and side effect od blood transfusion. Pt verbalize understanding.
--- NOTE | 2018-02-03 15:23 | NUR ---
CM Notes: Referred the case to [facility] contracted facilities: - [facility]: [phone] not accepting if patient has no Medi/Medi - [facility]: [phone] no [facility] bed available [facility] [phone] - no male bed available
--- NOTE | 2018-02-03 17:45 | NUR ---
RN notes Pt blood transfusion done. No adverse effect noted. Tolerated well. Vital signs within normal. Will continue to monitor.
--- NOTE | 2018-02-03 17:49 | CONS ---
DATE OF ADMISSION: 01/26/2018 DATE OF CONSULTATION: 02/03/2018 SUBJECTIVE FINDINGS: The patient is being followed for decubitus ulcerations, bilateral heels, parap legic. He has had prior debridements. Currently pending discharge. He had a blood transfusion toda y. OBJECTIVE FINDINGS: VITAL SIGNS: Temperature 98.2, pulse of 89, respiratory rate 16, blood pressure 115/68, pulse ox is 98% on room air. GENERAL: The patient is alert, oriented, no acute distress. LUNGS: Regular respiration. EXTREMITIES: Heels protected with cushion padding, has clean dressings. The left posterior heel ulc eration is nearly resolved. Right posterior medial heel has dry eschar, 4 x 3 cm, unstageable depth. No malodor. Absent protective sensation. No cellulitis. ASSESSMENT 1. Bilateral heel decubitus, right unstageable 2. Paraplegia. 3. Latent TB. 4. Anemia, status post transfusion. PLAN: Improved status with Dakin's, Xeroform, dry dressing. Can initiate Santyl to the right and re commend outpatient followup. The patient is stable for discharge. Continue use of Prevalon boots. Dictated By: JAZMIN GLEASON DPM RB/JARED Conf#: [id number] DID#: [id number] CC: ALEKSANDR GALAVIZ MD;*End*
[2018-02-03 20:53] VITALS: BP 121/74; PULSE 87; RESP 16
[2018-02-03] MEDS: ZONISAMIDE 100 MG CAP PO SCH (21:16)
[2018-02-03] MEDS: RISPERIDONE 1 MG TAB PO SCH (21:16)
[2018-02-04 02:32] VITALS: BP 131/70; PULSE 131; PULSE 94; RESP 18
[2018-02-04] MEDS: ARTIFICIAL TEARS 15 ML OPH BOTH EYES SCH ×3 (05:26→20:38)
[2018-02-04] MEDS: LEVOFLOXACIN 500 MG TAB PO SCH (05:26)
[2018-02-04] MEDS: morphine 2 MG INJ IV PRN ×2 (05:40→10:12)
[2018-02-04] MEDS: COLLAGENASE 5 GM (UD JAR) TOP SCH ×2 (05:46→09:00)
[2018-02-04] MEDS: SODIUM HYPOCHLORITE (1/40) 1 APPLIC BTL IRR SCH (05:46)
--- NOTE | 2018-02-04 06:58 | NUR ---
no significant changes overnight. pt remained afebrile with vss. turned and repositioned q2 with frequent incontinent checks. wound care done as ordered, tolerated well. for pending snf placement once CM arranged. will continue to monitor and will endorse to next shift.
[2018-02-04 07:49] VITALS: BP 115/74; PULSE 86; RESP 18
[2018-02-04] MEDS: NYSTATIN 15 GM POWDER BTL TOP SCH ×3 (09:00→20:43)
[2018-02-04] MEDS: DOCUSATE SODIUM 100 MG CAP PO SCH ×2 (09:00→20:38)
[2018-02-04] MEDS: BALSAM PERU/CASTOR OIL 60 GM TUBE TOP SCH (09:00)
[2018-02-04] MEDS: MAGNESIUM OXIDE 400 MG TAB PO SCH ×2 (09:35→20:38)
[2018-02-04] MEDS: RIFAMPIN 300 MG CAP PO SCH (09:35)
[2018-02-04] MEDS: PYRIDOXINE 50 MG TAB PO SCH (09:35)
[2018-02-04] MEDS: FAMOTIDINE 20 MG TAB PO SCH ×2 (09:35→20:38)
[2018-02-04] MEDS: DULOXETINE 30 MG CAP DR PO SCH (09:35)
[2018-02-04] MEDS: ALLOPURINOL 100 MG TAB PO SCH (09:35)
[2018-02-04] MEDS: GABAPENTIN 100 MG CAP PO SCH ×2 (09:35→20:38)
[2018-02-04] MEDS: BACLOFEN 10 MG TAB PO SCH ×3 (09:36→20:38)
[2018-02-04] MEDS: FERROUS FUMARATE (SR) TAB PO SCH ×2 (09:36→20:38)
[2018-02-04] MEDS: FOLIC ACID 1 MG TAB PO SCH (09:36)
[2018-02-04] MEDS: HYDROCORTISONE 1% 28 GM CR TOP SCH ×2 (09:47→20:43)
[2018-02-04] MEDS: VITAMIN A & D 5 GM OINT PACKET TOP SCH ×2 (10:12→20:38)
[2018-02-04] MEDS: ISONIAZID 300 MG TAB PO SCH (10:12)
--- NOTE | 2018-02-04 11:03 | PN ---
Date/Time of Note Date/Time of Note DATE: 02/04/18 TIME: 11:02 Assessment/Plan VTE Prophylaxis Risk score (from Ns)>0 risk: 3 SCD applied (from Ns): Yes Pharmacological prophylaxis: NA/contraindicated Pharm contraindication: anticoag not tolerated Lines/Catheters [facility] Saline Lock Urinary Cath still in place: Yes Reason Cath still needed: skin wounds contaminated by urine Assessment/Plan Hospital Course SUBJECTIVE: No acute overnight episodes. OBJECTIVE: Vital signs-see below PHYSICAL EXAM: Constitutional: Bedbound male, not in acute distress. Psych: nl mood/affect, no complaints Head: atraumatic, normocephalic Eyes: nl conjunctiva, nl sclera ENMT: mucosa pink and moist, nl external ears & nose Neck: non-tender, supple Respiratory: clear to auscultation, normal air movement Cardiovascular: nl pulses, regular rate and rhythm Gastrointestinal: non-tender, soft, bowel sounds active in all 4 quadrants. Musculoskeletal/extremities: Paraplegic. Normal pulses,no cyanosis, no edema. Neurological: Alert oriented 3,nl speech, nl strength Skin: Bilateral heel with ulcers, covered with dressing. No oozing noted on dressing. Nl turgor ASSESSMENT/PLAN: Very unfortunate 57-year-old male with a history of paraplegia secondary to spinal cord syndrome 6 months ago, who also resides in a detention, presented to the emergency room with worsening bilateral heel ulcers with foul-smelling drainage 1. Bilateral heel Decub ulcers -status post excisional debridement of bilateral heel decubitus. No evidence of osteomyelitis. -Continue Levaquin. -Continue wound care per podiatry recommendation with Dakin's irrigation/Xeroform/Kerlix dressing. 2. Paraplegia secondary to spinal disorder and back surgery 6 months ago -Exact nature of disorder and surgery unclear -Continue baclofen 3. Likely latent TB per home meds -Continue isoniazid 4. Depression -Continue home Cymbalta 5. Hypertension -Continue Coreg 6. Debility secondary to #2. -Patient resides in a detention. 7. Chronic anemia with mild iron deficiency. -s/p 1unit prbc -stable HH Prophylaxis:SCDs/Pepcid Diet: Regular CODE STATUS: Full code Disposition: Patient is medically stable for discharge to fci facility with continuation of wound care. Case management to facilitate placement. Patient to follow-up with [facility] wound care clinic in 1 week after discharge. Patient was seen in collaboration with Dr. Awad. Cont Hosp Indication/DC Plan: PLACEMENT ISSUES Exam/Review of Systems Vital Signs Vitals Vital Signs Date Temp Pulse Resp B/P (MAP) Pulse Ox O2 O2 Flow FiO2 Time Delivery Rate 02/04/18 98.2 86 18 115/74 97 07:49 (88) 02/04/18 Room Air 02:32 Intake and Output 02/03/18 02/03/18 02/04/18 1515:00 23:00 07:00 IntakeIntake Total 450 ml 500 ml 450 ml OutputOutput Total 700 ml 600 ml BalanceBalance -250 ml 500 ml -150 ml Medications Medications Current Medications IV Flush (NS 3 ml) 3 ml PER PROTOCOL IV ; Start 01/25/18 at 15:30 Ondansetron HCl (Zofran Inj) 4 mg Q6H PRN IV NAUSEA AND/OR VOMITING; Start 01/25/18 at 15:30 Acetaminophen (Tylenol Tab) 650 mg Q6H PRN PO PAIN LEVEL 1-3 OR FEVER; Start 01/25/18 at 15:30 Acetaminophen/ Hydrocodone Bitart ([place] (5/325)) 1 tab Q6H PRN PO MODERATE PAIN LEVEL 4-6 Last administered on 02/03/18at 06:11; Admin Dose 1 TAB; Start 01/25/18 at 15:30 Morphine Sulfate (morphine) 2 mg Q4H PRN IV SEVERE PAIN LEVEL 7-10 Last administered on 02/04/18at 10:12; Admin Dose 2 MG; Start 01/25/18 at 15:30 Allopurinol (Zyloprim) 100 mg DAILY PO Last administered on 02/04/18at 09:35; Admin Dose 100 MG; Start 01/26/18 at 09:00 Baclofen (Lioresal) 10 mg TID PO Last administered on 02/04/18 09:36; Admin Dose 10 MG; Start 01/25/18 at 21:00 Carvedilol (Coreg) 12.5 mg BID PO Last administered on 02/04/18 09:37; Admin Dose 12.5 MG; Start 01/25/18 at 21:00 Duloxetine HCl (Cymbalta) 30 mg DAILY PO Last administered on 02/04/18 09:35; Admin Dose 30 MG; Start 01/26/18 at 09:00 Famotidine (Pepcid) 20 mg BID PO Last administered on 02/04/18 09:35; Admin Dose 20 MG; Start 01/25/18 at 21:00 Folic Acid (Folic Acid) 1 mg DAILY PO Last administered on 02/04/18 09:36; Admin Dose 1 MG; Start 01/26/18 at 09:00 Gabapentin (Neurontin) 100 mg BID PO Last administered on 02/04/18 09:35; Admin Dose 100 MG; Start 01/25/18 at 21:00 Isoniazid (Isoniazid) 300 mg DAILY PO Last administered on 02/04/18 10:12; Admin Dose 300 MG; Start 01/26/18 at 09:00 Magnesium Oxide (Mag-Ox 400) 400 mg BID PO Last administered on 02/04/18 09:35; Admin Dose 400 MG; Start 01/25/18 at 21:00 Nystatin 1 applic BID TOP Last administered on 02/03/18 08:51; Admin Dose 1 APPLIC; Start 01/25/18 at 21:00 Pyridoxine HCl (Vitamin B6) 50 mg DAILY PO Last administered on 02/04/18 09:35; Admin Dose 50 MG; Start 01/26/18 at 09:00 Rifampin (Rifampin) 600 mg DAILY PO Last administered on 02/04/18 09:35; Admin Dose 600 MG; Start 01/26/18 at 09:00 Risperidone (Risperdal) 1 mg QHS PO Last administered on 02/03/18 21:16; Admin Dose 1 MG; Start 01/25/18 at 21:00 Zonisamide (Zonegran) 300 mg QHS PO Last administered on 02/03/18 21:16; Admin Dose 300 MG; Start 01/25/18 at 21:00 Eye Lubricant (Artificial Tears Oph) 1 drop Q8 BOTH EYES Last administered on 02/04/18 05:26; Admin Dose 1 DROP; Start 01/25/18 at 22:00 Miscellaneous Information (Pending [facility] Order For Wound Care) This patient woody... PRN PRN XX wound; Start 01/25/18 at 16:30 Vitamin A/Vitamin D (Vitamin A & D Oint) 1 applic BID TOP Last administered on 02/04/18at 10:12; Admin Dose 1 APPLIC; Start 01/26/18 at 21:00 Docusate Sodium/ Ferrous Fumarate (Sangita-Sequels) 1 tab BID PO Last administered on 02/04/18 09:36; Admin Dose 1 TAB; Start 01/27/18 at 21:00 Docusate Sodium (Colace) 200 mg BID PO Last administered on 02/03/18 21:16; Admin Dose 200 MG; Start 01/27/18 at 21:00 Enoxaparin Sodium (Lovenox) 40 mg DAILY SC Last administered on 02/03/18 08:51; Admin Dose 40 MG; Start 01/28/18 at 09:00; Status Hold Sodium Hypochlorite (Dakin'S (Dilute )) 1 applic DAILY IRR Last administ ered on 02/04/18 05:46; Admin Dose 1 APPLIC; Start 01/27/18 at 18:30 Collagenase (Santyl) 1 applic DAILY TOP Last administered on 02/04/18 05:46; Admin Dose 1 APPLIC; Start 01/27/18 at 17:30 Hydrocortisone (Hydrocortisone 1% Cr) 1 applic BID TOP Last administered on 02/04/18 09:47; Admin Dose 1 APPLIC; Start 01/27/18 at 21:19 Levofloxacin (Levaquin) 500 mg DAILY@06 PO Last administered on 02/04/18 05:26; Admin Dose 500 MG; Start 02/02/18 at 14:00; Stop 02/12/18 at 13:59 Collagenase (Santyl) 1 applic DAILY TOP ; Start 02/04/18 at 09:00 Results Result Diagram: 02/04/18 0501 02/04/18 0501 Results 24 hrs Laboratory Tests Test 02/04/18 05:01 02/04/18 07:24 White Blood Count 3.8 L Red Blood Count 3.48 L Hemoglobin 9.0 L Hematocrit 27.9 L Mean Corpuscular Volume 80.2 L Mean Corpuscular Hemoglobin 25.9 L Mean Corpuscular Hemoglobin Concent 32.3 Red Cell Distribution Width 15.9 H Platelet Count 379 Mean Platelet Volume 8.7 Immature Granulocytes % 0.500 H Neutrophils % 46.7 Lymphocytes % 32.8 Monocytes % 11.2 H Eosinophils % 7.7 H Basophils % 1.1 Nucleated Red Blood Cells % 0.0 Immature Granulocytes # 0.020 Neutrophils # 1.8 Lymphocytes # 1.2 Monocytes # 0.4 Eosinophils # 0.3 Basophils # 0.0 Nucleated Red Blood Cells # 0.0 Sodium Level 136 Potassium Level 4.3 Chloride Level 108 Carbon Dioxide Level 20 L Anion Gap 8 Blood Urea Nitrogen 7 Creatinine 0.74 Est Glomerular Filtrat Rate mL/min > 60 Glucose Level 98 Calcium Level 8.9 Lab Scanned Report BLOOD TRANSFUSION LIVIA ADAME NP Feb 04, 2018 11:03
--- NOTE | 2018-02-04 12:06 | NUR ---
ASSIGNED TO ME TODAY: DC PLANNING UPDATE: SPOKE TO MARY OBREGON RN, CM OF [employer], NOTIFIED HER THAT PATIENT IS HARD PLACEMENT, WAS A RESIDENT OF ASSISTED LIVING @ [facility] BUT NOW NEEDS SNF FOR WOUND CARE;PER CHARLOTTE PENA DENIED BY [facility], JEAN HERNANDEZ SAID WILL DO LETTER OF AGREEMENT WITH [facility] AND [facility] FOR PATIENT TO GET ACCEPTED IN SNF LEVEL . REFERRED BACK TO [facility], SPOKE TO ELE THAT [facility] IS READY TO PROVIDE ROXANE WITH THEM FOR CONTINUATION OF CARE OF THIS PATIENT. AWAITS CALL [facility]. Addendum: 02/04/18 at 1213 by GENOVEVA GONSALES CM Amended: Links added. Addendum: 02/04/18 at 1623 by GENOVEVA GONSALES CM CALLED BACK [facility] FOR PLACEMENT, SPOKE TO CATHERINE ; DENIED NO INSPECTING SUPERVISOR BED AVAILABLE FOR THIS PATIENT.
[2018-02-04 14:21] VITALS: BP 102/64; PULSE 85; RESP 16
--- NOTE | 2018-02-04 18:06 | NUR ---
ALL NEEDS MET.NO ACUTE EVENTS.TURNED THE PATIENT Q 2 HOURS AND CHANGED THE DRESSING ORDERED.CALL LIGHT WITHIN REACH.BED ALARM ON.GAVE PAIN MEDICATION REQESTED.HE IS RESTING COMFORTABLY IN BED.
[2018-02-04 20:21] VITALS: BP 96/66; PULSE 111; RESP 20
[2018-02-04] MEDS: HYDROCODONE/APAP (5/325) TAB PO PRN (20:27)
[2018-02-04] MEDS: RISPERIDONE 1 MG TAB PO SCH (20:38)
[2018-02-04] MEDS: ZONISAMIDE 100 MG CAP PO SCH (20:38)
[2018-02-04 21:25] VITALS: BP 115/71; PULSE 86
[2018-02-05 02:06] VITALS: BP 94/60; PULSE 101; RESP 18
[2018-02-05] MEDS: LEVOFLOXACIN 500 MG TAB PO SCH (05:26)
[2018-02-05] MEDS: ARTIFICIAL TEARS 15 ML OPH BOTH EYES SCH ×3 (05:27→21:56)
[2018-02-05] MEDS: HYDROCODONE/APAP (5/325) TAB PO PRN ×2 (05:27→21:54)
--- NOTE | 2018-02-05 06:30 | NUR ---
after wound care and morning care, pt complained of chest pain with scale of 5/10. pt unable to describe pain and only states "i dont know it just hurts here (while pointing to his left chest) and it comes and goes." denies radiating pain. BP 90/60 HR 100, temp 98F. pt remains alert oriented x 4, with no change in LOC. CAlled to Dr Jeronimo with new order for NS 500 cc bolus x 1. Nitrogylcerin SL PRN x 3 doses max q15 for chest pain, first dose to give once half of NS bolus was infused, 12 lead ekg stat and trponin level stat. orders noted and carried out. pt made aware. will continue to valentin pt.
--- NOTE | 2018-02-05 06:42 | NUR ---
called cardiology at extension [phone], informed of the 12 lead ekg stat order for the pt dues to chest pain. per technicianm she will be here as soon as she can. noted. Addendum: 02/05/18 at 0740 by RAY PINEDA RN ekg done, SR. troponin level just drawn at this time. pt remains alert, now DENIES chest pain and states he is feeling better. informed that he can receive nitro once 1/2 of NS bolus was infused. verbalized understanding. will endorse to next shift.
[2018-02-05] MEDS ORDERED: SOD CHLORIDE 0.9% 500 ML IV ONE (07:00)
[2018-02-05] MEDS ORDERED: NITROGLYCERIN (SL) 0.4 MG TAB SL PRN (07:00)
--- NOTE | 2018-02-05 07:25 | NUR ---
during bedside shift report, pt denied chest pain states he is feeling better. nitroglycerin not given at this time. endorsed to next shift for continuity of care.
--- NOTE | 2018-02-05 07:30 | NUR ---
Patient received on bed rest, alert and oriented. Denies chest pain at this time, refuse nitroglycerin SL. EKG is sinus rhythm. Waiting for Troponin results.
[2018-02-05 08:23] VITALS: BP 115/65; PULSE 80; RESP 18
[2018-02-05] MEDS: BALSAM PERU/CASTOR OIL 60 GM TUBE TOP SCH (09:00)
[2018-02-05] MEDS: SODIUM HYPOCHLORITE (1/40) 1 APPLIC BTL IRR SCH (09:00)
[2018-02-05] MEDS: COLLAGENASE 5 GM (UD JAR) TOP SCH ×2 (09:00)
--- NOTE | 2018-02-05 09:45 | NUR ---
OT STEPHEN Pt is a 57 y/o M with PMH of paraplegia secondary to spinal cord syndrome 6 months ago, who also resides in a [place] [facility]. Pt presented to the emergency room with worsening bilateral heel ulcers with foul-smelling drainage. Pt had complaints of chest pain, troponins negative. PT has additional PMH of depression, anemia, HTN. Pt cleared per NEELA Cabrera. Pt stating 8/10 pain in his shoulders bilaterally at this time, but does wince with movement. Pt vitals stable and pt agreeable to session. PLOF: Pt resided in a SNF. Pt owns a wheelchair and catheter supply. Pt states he required assistance for bathing, toileting, and all functional transfers to wheelchair. Pt states he was able to self feed and groom with set up while supine/seated at baseline. Pt stated he was at [facility] then a different SNF afterwards. CLOF: Pt found supine with HOB elevated, agreeable to session. Pt able to groom and simulate self feeding with supervision. Pt RUE ROM appears WFL with 4-/5 strength. Pt LUE ROM appears impaired, utilized RUE to move shoulder to 90 degrees. Pt able to bend LUE at elbow and has grossly 3+/5 strength in hand/wrist/elbow. Pt required assistance for UBD, is dependent for LBD and toileting at this time. Pt requires mod A for rolling to L side and max A to roll to R side fully due to limited LUE strength/ROM. Pt has some movement and muscle spasms in BLE. Pt returned to supine and required max A x2 to reposition. Left with all needs within reach. RN aware of status. Recommendations: Skilled OT 1x/day, 3-5x/week to address deficits affecting ADL participation/independence. Recommend SNF vs ARU pending dc to maximize participation with ADLS and functional transfers.
[2018-02-05] MEDS: DOCUSATE SODIUM 100 MG CAP PO SCH ×2 (09:46→20:20)
[2018-02-05] MEDS: FERROUS FUMARATE (SR) TAB PO SCH ×2 (09:48→20:21)
[2018-02-05] MEDS: ISONIAZID 300 MG TAB PO SCH (09:48)
[2018-02-05] MEDS: FOLIC ACID 1 MG TAB PO SCH (09:48)
[2018-02-05] MEDS: DULOXETINE 30 MG CAP DR PO SCH (09:48)
[2018-02-05] MEDS: BACLOFEN 10 MG TAB PO SCH ×3 (09:48→20:22)
[2018-02-05] MEDS: GABAPENTIN 100 MG CAP PO SCH ×2 (09:49→20:21)
[2018-02-05] MEDS: PYRIDOXINE 50 MG TAB PO SCH (09:49)
[2018-02-05] MEDS: RIFAMPIN 300 MG CAP PO SCH (09:49)
[2018-02-05] MEDS: MAGNESIUM OXIDE 400 MG TAB PO SCH ×2 (09:49→20:21)
[2018-02-05] MEDS: FAMOTIDINE 20 MG TAB PO SCH ×2 (09:49→20:21)
[2018-02-05] MEDS: ALLOPURINOL 100 MG TAB PO SCH (09:49)
[2018-02-05] MEDS: HYDROCORTISONE 1% 28 GM CR TOP SCH ×2 (09:50→20:29)
[2018-02-05] MEDS: NYSTATIN 15 GM POWDER BTL TOP SCH ×2 (09:50→20:29)
[2018-02-05] MEDS: VITAMIN A & D 5 GM OINT PACKET TOP SCH ×2 (09:50→20:22)
--- NOTE | 2018-02-05 11:04 | PN ---
Date/Time of Note Date/Time of Note DATE: 02/05/18 TIME: 11:02 Assessment/Plan VTE Prophylaxis Risk score (from Nsg)>0 risk: 3 SCD applied (from Nsg): Yes Pharmacological prophylaxis: LMWH Lines/Catheters IV Catheter Type (from Nrsg): Peripheral IV Urinary Cath still in place: Yes Reason Cath still needed: skin wounds contaminated by urine Assessment/Plan Hospital Course SUBJECTIVE: No acute overnight episodes. OBJECTIVE: Vital signs-see below PHYSICAL EXAM: Constitutional: Bedbound male, not in acute distress. Psych: nl mood/affect, no complaints Head: atraumatic, normocephalic Eyes: nl conjunctiva, nl sclera ENMT: mucosa pink and moist, nl external ears & nose Neck: non-tender, supple Respiratory: clear to auscultation, normal air movement Cardiovascular: nl pulses, regular rate and rhythm Gastrointestinal: non-tender, soft, bowel sounds active in all 4 quadrants. Musculoskeletal/extremities: Paraplegic. Normal pulses,no cyanosis, no edema. Neurological: Alert oriented 3,nl speech, nl strength Skin: Bilateral heel with ulcers, covered with dressing. No oozing noted on dressing. Nl turgor ASSESSMENT/PLAN: Very unfortunate 57-year-old male with a history of paraplegia secondary to spinal cord syndrome 6 months ago, who also resides in a jail, presented to the emergency room with worsening bilateral heel ulcers with foul-smelling drainage 1. Bilateral heel Decub ulcers -status post excisional debridement of bilateral heel decubitus. No evidence of osteomyelitis. -Continue Levaquin. -Continue wound care per podiatry recommendation with Dakin's irrigation/Xeroform/Kerlix dressing. 2. Paraplegia secondary to spinal disorder and back surgery 6 months ago -Exact nature of disorder and surgery unclear -Continue baclofen 3. Likely latent TB per home meds -Continue isoniazid 4. Depression -Continue home Cymbalta 5. Hypertension -Continue Coreg 6. Debility secondary to #2. -Patient resides in a jail. 7. Chronic anemia with mild iron deficiency. -Stable H&H after 1 unit transfusion. -Continue oral iron replacement. Prophylaxis:Lovenox/Pepcid Diet: Regular CODE STATUS: Full code Disposition: Patient is medically stable for [facility] with continuation of wound care. Case management to facilitate placement. Patient to follow-up with [facility] wound care clinic in 1 week after discharge. Patient was seen in collaboration with Dr. Awad. Cont Hosp Indication/DC Plan: placement Exam/Review of Systems Vital Signs Vitals Vital Signs Date Temp Pulse Resp B/P (MAP) Pulse Ox O2 O2 Flow FiO2 Time Delivery Rate 02/05/18 98.4 80 18 115/65 98 Room Air 08:23 (82) Intake and Output 02/04/18 02/04/18 02/05/18 1515:00 23:00 07:00 IntakeIntake Total 1600 ml OutputOutput Total 750 ml BalanceBalance 850 ml Medications Medications Current Medications IV Flush (NS 3 ml) 3 ml PER PROTOCOL IV ; Start 01/25/18 at 15:30 Ondansetron HCl (Zofran Inj) 4 mg Q6H PRN IV NAUSEA AND/OR VOMITING; Start 01/25/18 at 15:30 Acetaminophen (Tylenol Tab) 650 mg Q6H PRN PO PAIN LEVEL 1-3 OR FEVER; Start 01/25/18 at 15:30 Acetaminophen/ Hydrocodone Bitart ([place] (5/325)) 1 tab Q6H PRN PO MODERATE PAIN LEVEL 4-6 Last administered on 02/05/18at 05:27; Admin Dose 1 TAB; Start 01/25/18 at 15:30 Morphine Sulfate (morphine) 2 mg Q4H PRN IV SEVERE PAIN LEVEL 7-10 Last administered on 02/04/18at 10:12; Admin Dose 2 MG; Start 01/25/18 at 15:30 Allopurinol (Zyloprim) 100 mg DAILY PO Last administered on 02/05/18at 09:49; Admin Dose 100 MG; Start 01/26/18 at 09:00 Baclofen (Lioresal) 10 mg TID PO Last administered on 02/05/18 09:48; Admin Dose 10 MG; Start 01/25/18 at 21:00 Carvedilol (Coreg) 12.5 mg BID PO Last administered on 02/05/18 09:47; Admin Dose 12.5 MG; Start 01/25/18 at 21:00 Duloxetine HCl (Cymbalta) 30 mg DAILY PO Last administered on 02/05/18 09:48; Admin Dose 30 MG; Start 01/26/18 at 09:00 Famotidine (Pepcid) 20 mg BID PO Last administered on 02/05/18 09:49; Admin Dose 20 MG; Start 01/25/18 at 21:00 Folic Acid (Folic Acid) 1 mg DAILY PO Last administered on 02/05/18 09:48; Admin Dose 1 MG; Start 01/26/18 at 09:00 Gabapentin (Neurontin) 100 mg BID PO Last administered on 02/05/18 09:49; Admin Dose 100 MG; Start 01/25/18 at 21:00 Isoniazid (Isoniazid) 300 mg DAILY PO Last administered on 02/05/18 09:48; Admin Dose 300 MG; Start 01/26/18 at 09:00 Magnesium Oxide (Mag-Ox 400) 400 mg BID PO Last administered on 02/05/18 09:49; Admin Dose 400 MG; Start 01/25/18 at 21:00 Nystatin 1 applic BID TOP Last administered on 02/05/18 09:50; Admin Dose 1 APPLIC; Start 01/25/18 at 21:00 Pyridoxine HCl (Vitamin B6) 50 mg DAILY PO Last administered on 02/05/18 09:49; Admin Dose 50 MG; Start 01/26/18 at 09:00 Rifampin (Rifampin) 600 mg DAILY PO Last administered on 02/05/18 09:49; Admin Dose 600 MG; Start 01/26/18 at 09:00 Risperidone (Risperdal) 1 mg QHS PO Last administered on 02/04/18 20:38; Admin Dose 1 MG; Start 01/25/18 at 21:00 Zonisamide (Zonegran) 300 mg QHS PO Last administered on 02/04/18 20:38; Admin Dose 300 MG; Start 01/25/18 at 21:00 Eye Lubricant (Artificial Tears Oph) 1 drop Q8 BOTH EYES Last administered on 02/05/18 05:27; Admin Dose 1 DROP; Start 01/25/18 at 22:00 Miscellaneous Information (Pending [facility] Order For Wound Care) This patient woody... PRN PRN XX wound; Start 01/25/18 at 16:30 Vitamin A/Vitamin D (Vitamin A & D Oint) 1 applic BID TOP Last administered on 02/05/18 09:50; Admin Dose 1 APPLIC; Start 01/26/18 at 21:00 Docusate Sodium/ Ferrous Fumarate (Sangita-Sequels) 1 tab BID PO Last administere d on 02/05/18 09:48; Admin Dose 1 TAB; Start 01/27/18 at 21:00 Docusate Sodium (Colace) 200 mg BID PO Last administered on 02/05/18 09:46; Admin Dose 200 MG; Start 01/27/18 at 21:00 Enoxaparin Sodium (Lovenox) 40 mg DAILY SC Last administered on 02/03/18at 08:51; Admin Dose 40 MG; Start 01/28/18 at 09:00; Status Hold Sodium Hypochlorite (Dakin'S (Dilute )) 1 applic DAILY IRR Last admin istered on 02/04/18 05:46; Admin Dose 1 APPLIC; Start 01/27/18 at 18:30 Collagenase (Santyl) 1 applic DAILY TOP Last administered on 02/04/18 05:46; Admin Dose 1 APPLIC; Start 01/27/18 at 17:30 Hydrocortisone (Hydrocortisone 1% Cr) 1 applic BID TOP Last administered on 02/05/18 09:50; Admin Dose 1 APPLIC; Start 01/27/18 at 21:19 Levofloxacin (Levaquin) 500 mg DAILY@06 PO Last administered on 02/05/18 05:26; Admin Dose 500 MG; Start 02/02/18 at 14:00; Stop 02/12/18 at 13:59 Collagenase (Santyl) 1 applic DAILY TOP ; Start 02/04/18 at 09:00 Nitroglycerin (Nitroglycerin (Sl Tab) 0.4 Mg) 1 tab Q5M PRN SL ANGINA; Start 02/05/18 at 07:00 Results Result Diagram: 02/04/18 0501 02/04/18 0501 Results 24 hrs Laboratory Tests Test 02/05/18 07:14 Troponin I < 0.012 LIVIA ADAME NP Feb 05, 2018 11:04
--- NOTE | 2018-02-05 13:51 | NUR ---
DC PLANS UPDATE: SPOKE TO CM OF [facility] [phone] RE ACCEPTANCE @ [facility]; DENIED REFERRED TO SNF [phone] CINDI [phone] Addendum: 02/05/18 at 1409 by GENOVEVA GONSALES CM Amended: Links added. Addendum: 02/06/18 at 1051 by GENOVEVA GONSALES [facility] DENIED [facility] DENIED NO MALE BEDS CASIMIRO BUENO MD NOT ACCEPTING INSURANCE Addendum: 02/06/18 at 1224 by GENOVEVA GONSALES [facility] DENIED NO BED [facility] DENIED NO BED [facility] NO BED AVAILABLE.
[2018-02-05 15:05] VITALS: BP 127/73; PULSE 96; RESP 18
--- NOTE | 2018-02-05 16:46 | NUR ---
PT EVALUATION: [facility] Patient: Papo Wynne : 1960 Age/Sex: 57/M Unit#: [id number] Room/Bed: 2265/A User: Edna Leroy PT Date: 02/05/18 16:34 Type: PT Technical Record Therapy day number 1 Evaluation Start Time 14:30 Evaluation End Time 15:00 Evaluation Total Time 30 min Subjective Denies pain Pain Scale NUMERIC Pain Intensity 0 (0-10) Patient Stated Goal for Pain Relief 0 (0-10) Pain Level Comment denies pain Pre Treatment Vital Signs Stable Yes Additional Mobility Comments Repositioned BLE's in supine to promote neutral hip alignment Patient uses wheelchair Yes Equipment Present Benavidez Catheter IV pump Additional Equipment Present pressure relief boots bilaterally Post Treatment Pain Intensity 0 0-10 Variance Documentation See PT eval PT Technical Record Comment PT EVALUATION: Pt is a 57 yo Swedish speaking M with PMH of paraplegia 2/2 spinal cord syndrome s/p surgery 6 mos ago, depression, anemia, HTN who presents to [facility] from skilled facility d/t worsening bilateral heel ulcers. Upon admission, pt also c/o chest pain, troponins negative. PLOF: Pt resides in SNF/[facility], owns WC, reports being maxA to WC at baseline. States he "spent most of the time in bed". CLOF: NEELA Cabrera cleared pt for PT evaluation, pt appears depressed, only agreeable for repositioning and LE ROM evaluation. Educated on role of PT in care, verbalized understanding. Vitals stable. Pt with paraplegia, repositioned BLE's with pillows to maintain neutral hip positioning with B feet in pressure relief boots. Pt remained in supine, RN notified of pt's status. Recommendation: Unable to evaluate transfers at this time d/t pt refusal, per pt, pt is maxA to WC at baseline. Will attempt OOB next session. Recommend DC to SNF once medically stable. Plan: Continue PT POC (3x/wk).
--- NOTE | 2018-02-05 19:00 | NUR ---
Patient on bed rest, alert and oriented. Vital signs stable. Turned every 2 hours. Wound care provided as ordered. Patient waiting for placement.
[2018-02-05 19:35] VITALS: BP 121/77; PULSE 112; RESP 18
[2018-02-05] MEDS: morphine 2 MG INJ IV PRN (20:20)
[2018-02-05] MEDS: ZONISAMIDE 100 MG CAP PO SCH (20:21)
[2018-02-05] MEDS: RISPERIDONE 1 MG TAB PO SCH (20:21)
[2018-02-06 02:14] VITALS: BP 94/58; PULSE 105; RESP 18
[2018-02-06] MEDS: ARTIFICIAL TEARS 15 ML OPH BOTH EYES SCH ×3 (06:20→21:25)
[2018-02-06] MEDS: LEVOFLOXACIN 500 MG TAB PO SCH (06:21)
[2018-02-06 08:34] VITALS: BP 120/74; PULSE 71; RESP 18
[2018-02-06] MEDS: VITAMIN A & D 5 GM OINT PACKET TOP SCH ×2 (08:52→20:09)
[2018-02-06] MEDS: COLLAGENASE 5 GM (UD JAR) TOP SCH ×2 (08:52→08:54)
[2018-02-06] MEDS: FERROUS FUMARATE (SR) TAB PO SCH ×2 (08:52→20:08)
[2018-02-06] MEDS: MAGNESIUM OXIDE 400 MG TAB PO SCH ×2 (08:52→20:08)
[2018-02-06] MEDS: RIFAMPIN 300 MG CAP PO SCH (08:52)
[2018-02-06] MEDS: DULOXETINE 30 MG CAP DR PO SCH (08:52)
[2018-02-06] MEDS: DOCUSATE SODIUM 100 MG CAP PO SCH ×2 (08:52→20:08)
[2018-02-06] MEDS: FAMOTIDINE 20 MG TAB PO SCH ×2 (08:52→20:08)
[2018-02-06] MEDS: GABAPENTIN 100 MG CAP PO SCH ×2 (08:52→20:08)
[2018-02-06] MEDS: FOLIC ACID 1 MG TAB PO SCH (08:52)
[2018-02-06] MEDS: PYRIDOXINE 50 MG TAB PO SCH (08:52)
[2018-02-06] MEDS: ALLOPURINOL 100 MG TAB PO SCH (08:53)
[2018-02-06] MEDS: ISONIAZID 300 MG TAB PO SCH (08:53)
[2018-02-06] MEDS: SODIUM HYPOCHLORITE (1/40) 1 APPLIC BTL IRR SCH (08:53)
[2018-02-06] MEDS: BACLOFEN 10 MG TAB PO SCH ×3 (08:53→20:08)
[2018-02-06] MEDS: NYSTATIN 15 GM POWDER BTL TOP SCH ×2 (08:54→20:11)
[2018-02-06] MEDS: HYDROCORTISONE 1% 28 GM CR TOP SCH ×2 (08:54→20:10)
[2018-02-06] MEDS: BALSAM PERU/CASTOR OIL 60 GM TUBE TOP SCH (08:54)
[2018-02-06] MEDS: ENOXAPARIN 40 MG/0.4 ML SYG SC SCH (09:07)
[2018-02-06] MEDS: morphine 2 MG INJ IV PRN ×3 (09:09→20:09)
--- NOTE | 2018-02-06 10:38 | PN ---
Date/Time of Note Date/Time of Note DATE: 02/06/18 TIME: 10:37 Assessment/Plan VTE Prophylaxis Risk score (from Nsg)>0 risk: 4 SCD applied (from Nsg): Yes Pharmacological prophylaxis: LMWH Lines/Catheters IV Catheter Type (from Nrsg): Saline Lock Urinary Cath still in place: Yes Reason Cath still needed: pres ulcer contaminated by urine Assessment/Plan Hospital Course SUBJECTIVE: No acute overnight episodes. OBJECTIVE: Vital signs-see below PHYSICAL EXAM: Constitutional: Bedbound male, not in acute distress. Psych: nl mood/affect, no complaints Head: atraumatic, normocephalic Eyes: nl conjunctiva, nl sclera ENMT: mucosa pink and moist, nl external ears & nose Neck: non-tender, supple Respiratory: clear to auscultation, normal air movement Cardiovascular: nl pulses, regular rate and rhythm Gastrointestinal: non-tender, soft, bowel sounds active in all 4 quadrants. Musculoskeletal/extremities: Paraplegic. Normal pulses,no cyanosis, no edema. Neurological: Alert oriented 3,nl speech, nl strength Skin: Bilateral heel with ulcers, covered with dressing. No oozing noted on dressing. Nl turgor ASSESSMENT/PLAN: Very unfortunate 57-year-old male with a history of paraplegia secondary to spinal cord syndrome 6 months ago, who also resides in a snf, presented to the emergency room with worsening bilateral heel ulcers with foul-smelling drainage 1. Bilateral heel Decub ulcers -status post excisional debridement of bilateral heel decubitus. No evidence of osteomyelitis. -Continue Levaquin. -Continue wound care per podiatry recommendation with Dakin's irrigation/Xeroform/Kerlix dressing. 2. Paraplegia secondary to spinal disorder and back surgery 6 months ago -Exact nature of disorder and surgery unclear -Continue baclofen 3. Likely latent TB per home meds -Continue isoniazid 4. Depression -Continue home Cymbalta 5. Hypertension -Continue Coreg 6. Debility secondary to #2. -Patient resides in a snf. 7. Chronic anemia with mild iron deficiency. -Stable H&H after 1 unit transfusion. -Continue oral iron replacement. Prophylaxis:Lovenox/Pepcid Diet: Regular CODE STATUS: Full code Disposition: Patient is medically stable for discharge to fpc facility with continuation of wound care. Case management to facilitate placement. Patient to follow-up with [facility] wound care clinic in 1 week after discharge. Patient was seen in collaboration with Dr. Awad. Cont Hosp Indication/DC Plan: Placement issues. Exam/Review of Systems Vital Signs Vitals Vital Signs Date Temp Pulse Resp B/P (MAP) Pulse Ox O2 O2 Flow FiO2 Time Delivery Rate 02/06/18 98.1 71 18 120/74 99 08:34 (89) 02/05/18 Room Air 15:05 Intake and Output 02/05/18 02/05/18 02/06/18 1515:00 23:00 07:00 IntakeIntake Total 1220 ml 775 ml OutputOutput Total 600 ml 550 ml BalanceBalance 1220 ml 175 ml -550 ml Medications Medications Current Medications IV Flush (NS 3 ml) 3 ml PER PROTOCOL IV ; Start 01/25/18 at 15:30 Ondansetron HCl (Zofran Inj) 4 mg Q6H PRN IV NAUSEA AND/OR VOMITING; Start 01/25/18 at 15:30 Acetaminophen (Tylenol Tab) 650 mg Q6H PRN PO PAIN LEVEL 1-3 OR FEVER; Start 01/25/18 at 15:30 Acetaminophen/ Hydrocodone Bitart ([place] (5/325)) 1 tab Q6H PRN PO MODERATE PAIN LEVEL 4-6 Last administered on 02/05/18at 21:54; Admin Dose 1 TAB; Start 01/25/18 at 15:30 Morphine Sulfate (morphine) 2 mg Q4H PRN IV SEVERE PAIN LEVEL 7-10 Last administered on 02/06/18at 09:09; Admin Dose 2 MG; Start 01/25/18 at 15:30 Allopurinol (Zyloprim) 100 mg DAILY PO Last administered on 02/06/18at 08:53; Admin Dose 100 MG; Start 01/26/18 at 09:00 Baclofen (Lioresal) 10 mg TID PO Last administered on 02/06/18 08:53; Admin Dose 10 MG; Start 01/25/18 at 21:00 Carvedilol (Coreg) 12.5 mg BID PO Last administered on 02/06/18 08:53; Admin Dose 12.5 MG; Start 01/25/18 at 21:00 Duloxetine HCl (Cymbalta) 30 mg DAILY PO Last administered on 02/06/18 08:52; Admin Dose 30 MG; Start 01/26/18 at 09:00 Famotidine (Pepcid) 20 mg BID PO Last administered on 02/06/18 08:52; Admin Dose 20 MG; Start 01/25/18 at 21:00 Folic Acid (Folic Acid) 1 mg DAILY PO Last administered on 02/06/18 08:52; Admin Dose 1 MG; Start 01/26/18 at 09:00 Gabapentin (Neurontin) 100 mg BID PO Last administered on 02/06/18 08:52; Admin Dose 100 MG; Start 01/25/18 at 21:00 Isoniazid (Isoniazid) 300 mg DAILY PO Last administered on 02/06/18 08:53; Admin Dose 300 MG; Start 01/26/18 at 09:00 Magnesium Oxide (Mag-Ox 400) 400 mg BID PO Last administered on 02/06/18 08:52; Admin Dose 400 MG; Start 01/25/18 at 21:00 Nystatin 1 applic BID TOP Last administered on 02/06/18 08:54; Admin Dose 1 APPLIC; Start 01/25/18 at 21:00 Pyridoxine HCl (Vitamin B6) 50 mg DAILY PO Last administered on 02/06/18 08:52; Admin Dose 50 MG; Start 01/26/18 at 09:00 Rifampin (Rifampin) 600 mg DAILY PO Last administered on 02/06/18 08:52; Admin Dose 600 MG; Start 01/26/18 at 09:00 Risperidone (Risperdal) 1 mg QHS PO Last administered on 02/05/18 20:21; Admin Dose 1 MG; Start 01/25/18 at 21:00 Zonisamide (Zonegran) 300 mg QHS PO Last administered on 02/05/18 20:21; Admin Dose 300 MG; Start 01/25/18 at 21:00 Eye Lubricant (Artificial Tears Oph) 1 drop Q8 BOTH EYES Last administered on 02/06/18 06:20; Admin Dose 1 DROP; Start 01/25/18 at 22:00 Miscellaneous [facility] This patient woody... PRN PRN XX wound; Start 01/25/18 at 16:30 Vitamin A/Vitamin D (Vitamin A & D Oint) 1 applic BID TOP Last administered on 02/06/18 08:52; Admin Dose 1 APPLIC; Start 01/26/18 at 21:00 Docusate Sodium/ Ferrous Fumarate (Sangita-Sequels) 1 tab BID PO Last administered on 02/06/18 08:52; Admin Dose 1 TAB; Start 01/27/18 at 21:00 Docusate Sodium (Colace) 200 mg BID PO Last administered on 02/06/18 08:52; Ad min Dose 200 MG; Start 01/27/18 at 21:00 Enoxaparin Sodium (Lovenox) 40 mg DAILY SC Last administered on 02/06/18 09:07; Admin Dose 40 MG; Start 01/28/18 at 09:00 Sodium Hypochlorite (Dakin'S (Dilute )) 1 applic DAILY IRR Last administered on 02/06/18 08:53; Admin Dose 1 APPLIC; Start 01/27/18 at 18:30 Collagenase (Santyl) 1 applic DAILY TOP Last administered on 02/06/18 08:52; Admin Dose 1 APPLIC; Start 01/27/18 at 17:30 Hydrocortisone (Hydrocortisone 1% Cr) 1 applic BID TOP Last administered on 02/06/18 08:54; Admin Dose 1 APPLIC; Start 01/27/18 at 21:19 Levofloxacin (Levaquin) 500 mg DAILY@06 PO Last administered on 02/06/18at 06:21; Admin Dose 500 MG; Start 02/02/18 at 14:00; Stop 02/12/18 at 13:59 Collagenase (Santyl) 1 applic DAILY TOP ; Start 02/04/18 at 09:00 Nitroglycerin (Nitroglycerin (Sl Tab) 0.4 Mg) 1 tab Q5M PRN SL ANGINA; Start 02/05/18 at 07:00 Results Result Diagram: 02/04/18 0501 02/04/18 0501 LIVIA ADAME NP Feb 06, 2018 10:38
[2018-02-06] MEDS: HYDROCODONE/APAP (5/325) TAB PO PRN (11:09)
--- NOTE | 2018-02-06 11:35 | NUR ---
PT NOTE [facility] Patient: Papo Wynne : 1960 Age/Sex: 57/M Unit#: [id number] Room/Bed: 2265/A User: Emiliana Gregory PTA Date: 02/06/18 11:35 Type: PT Technical Record Therapy day number 2 Subjective Current complaint of pain Pain Scale NUMERIC Pain Intensity 4 (0-10) Patient Stated Goal for Pain Relief 0 (0-10) Pain Level Comment back pain Exercise Assessment Label Bilat Lower Extremity Exercise Type Passive ROM Additional Exercise Comments APs, LAQ, seated marchbabita, hip abd/add Exercise Start Time 11:01 Exercise End Time 11:15 Total Exercise Time 14 min (8-127) Transfer Training Start Time 11:15 Supine to Sit Maximum Assist Bed Mobility Sit to Supine Maximum Assist Sitting Tolerance 15 min Transfer Training End Time 11:35 Total Transfer Training Time 20 min (8-127) Patient uses wheelchair Yes Static Sitting Balance Fair Dynamic Sitting Balance Fair minus Equipment Present Benavidez Catheter Additional Equipment Present pressure relief boots bilaterally Post Treatment Pain Intensity 4 0-10 Variance Documentation See PT note Total Treament Time 34 min (8-127) Total Minutes 34 Total Units 2 PT Technical Record Comment PT NOTE S: NEELA Rodriguez cleared pt for PT. Pt c/o 5/10 back pain, premedicated. Agreeable to tx O: Received pt in R sidelying. MaxA x2PA for mobility. Sitting tolerance ~15 mins. Noted pt heavily leans to R side. Required Joan/CGA while sitting. Performed PROME at EOB; APs, LAQ, seated marches, hip abd/add and trunk stabilization exercises; anterior/posterior/lateral weight shifting. Returned pt back to bed. Positioned pt to comfort in semifowler. Informed RN, pt required to be cleaned. Bed alarm on. Needs met. A: Fair tolerance to tx. Sitting tolerance ~15 mins. Pt able to sit w/ BUE support P: Continue w/ POC and progress as tolerated
--- NOTE | 2018-02-06 11:41 | NUR ---
OT NOTE S: Pt cleared per RN, states he was medicated with pain meds. Pt reporting 8/10 pain in back/shoulders. Pt agreeable to session. O: Pt found supine with HOB elevated. Pt required max A ax2 for supine to sit transfer. Pt sat EOB for 15 min with fair balance, required CGA/min throughout. Completed reaching BUE therex each side 20x. Pt completed balance activity forward/backward with CGA, side to side with min A. Pt required max A x2 to return to supine. Appeared soiled, RN notified of status and coming to complete toileting. A: Fair tolerance, inc in activity noted. P: Continue POc.
--- NOTE | 2018-02-06 12:24 | NUR ---
SNF PLACEMENT : NO ACCEPTANCE YET REFERRED TO [facility] REMBERTO BEEBE [facility] ANGIE DENNEY Addendum: 02/06/18 at 1234 by GENOVEVA GONSALES CM Amended: Links added.
[2018-02-06 14:30] VITALS: BP 98/54; PULSE 98; RESP 18
--- NOTE | 2018-02-06 15:30 | NUR ---
NURSE NOTES: Patient was seen and examined by Dr. Adan (Crime Investigator Special Agent). Dr. Adan examined patient's feet and performed debridement on pt's right foot. wound care dressings done by Dr. Adan. Patient tolerated well.
--- NOTE | 2018-02-06 18:07 | NUR ---
Nurse Notes: Patient alert and oriented x 4, able to verbalize needs. Remained stable throughout the shift. No changes in LOC or mentation noted. no SOB or distress. monitored vital sign, afebrile. Benavidez catheter patent and intact, draining well to the urine bag. No sediments noted. All due medications were given tolerated well. Assessed and reassessed for pain, Medicated with [place] and Morphine for pain as ordered PRN. Wound care treatment done as ordered. Turned and repositioned. Allevyn in place. Offloaded heels with pillows, heel medix applied. No new skin changes noted. On low air loss mattress. Safety precautions observed, hourly rounding done, bed alarm and bed brakes on for safety. call light and telephone within reach at all times. Will continue to monitor. Will endorse accordingly to next shift for continuity of care.
[2018-02-06 19:35] VITALS: BP 110/68; PULSE 89; RESP 18
[2018-02-06] MEDS: RISPERIDONE 1 MG TAB PO SCH (20:09)
[2018-02-06] MEDS: ZONISAMIDE 100 MG CAP PO SCH (21:25)
--- NOTE | 2018-02-06 23:01 | PN ---
Date/Time of Note Date/Time of Note DATE: 02/06/18 TIME: 23:01 Assessment/Plan VTE Prophylaxis Risk score (from Nsg)>0 risk: 4 SCD applied (from Nsg): Yes Pharmacological prophylaxis: heparin Lines/Catheters IV Catheter Type (from Nrs): Saline Lock Assessment/Plan Hospital Course 57 y/o paraplegic M patient presents to the floor with bilateral pressure heel wounds. Patient states they have been present for over two weeks. Patient states he was at another facility and his ex- also helps with the dressing changes and noticed worsening signs of the wound with foul smell. Patient denies f/c/n/v no chest pain or shortness of breath. Assessment/Plan 1) B/l decubitus heel ulcers right unstageable, Left stage 1 2) Left decubitus ankle ulcer stage 2 3) Paraplegia b/l LE 4) Peripheral neuropathy 5) HTN 6) Depression 7) Latent TB Plan: Performed excisional debridement of right heel decubitus wound with scissors, pickups, and scalpel blade. Skin and subcutaneous tissue was excisionally debrided and wounds were irrigated with copious saline solution. Right foot wound cultures showing e. cloacae and enterococcus species. 20cm2 area of debridement performed. Daily wound dressing changes with dakins irrigation and dress with santyl, xeroform, and kerlix. Wound care orders are in place. Emphasized to nurse strict offloading of heels with pillows. X-rays reviewed and did not appreciate sign of osteomyelitis. Continue with IV abx as per recommendations. Non-invasive studies ordered: No focal hemodynamically significant stenosis in either lower extremity. Monitor while in house. Medical decisions, treatment and plan coordinated with Dr. Courtney. Subjective 24 Hr Interval Summary Free Text/Dictation No acute events overnight. Exam/Review of Systems Vital Signs Vitals Vital Signs Date Temp Pulse Resp B/P (MAP) Pulse Ox O2 O2 Flow FiO2 Time Delivery Rate 02/06/18 98.4 89 18 110/68 98 19:35 (82) 02/06/18 Room Air 14:30 Intake and Output 02/05/18 02/05/18 02/06/18 1515:00 23:00 07:00 IntakeIntake Total 1220 ml 775 ml OutputOutput Total 600 ml 550 ml BalanceBalance 1220 ml 175 ml -550 ml Exam Palpable pedal pulses 2+ pitting edema Right foot full thickness ulcer with stable central necrotic wound base and surrounding granular tissue. No eschar formation, indeterminate depth wound margins measures 4 x 5 cm. No purulence expressed, no probing to bone, no proximal streaking. Left heel ulcer with mixed partial and full thickness wound granular wound base no probing to bone, no proximal streaking, no purulence expressed Left lateral malleolus with 1.0 x 0.8 x 0.3cm mixed granular and necrotic wound base which does not probe to bone, no proximal streaking, no purulence. Absent muscle strength to the lower extremity Absent protective sensations to the bilateral lower extremities. Medications Medications Current Medications IV Flush (NS 3 ml) 3 ml PER PROTOCOL IV ; Start 01/25/18 at 15:30 Ondansetron HCl (Zofran Inj) 4 mg Q6H PRN IV NAUSEA AND/OR VOMITING; Start 01/25/18 at 15:30 Acetaminophen (Tylenol Tab) 650 mg Q6H PRN PO PAIN LEVEL 1-3 OR FEVER; Start 01/25/18 at 15:30 Acetaminophen/ Hydrocodone Bitart ([place] (5/325)) 1 tab Q6H PRN PO MODERATE PAIN LEVEL 4-6 Last administered on 02/06/18 11:09; Admin Dose 1 TAB; Start 01/25/18 at 15:30 Morphine Sulfate (morphine) 2 mg Q4H PRN IV SEVERE PAIN LEVEL 7-10 Last administered on 02/06/18 20:09; Admin Dose 2 MG; Start 01/25/18 at 15:30 Allopurinol (Zyloprim) 100 mg DAILY PO Last administered on 02/06/18at 08:53; Admin Dose 100 MG; Start 01/26/18 at 09:00 Baclofen (Lioresal) 10 mg TID PO Last administered on 02/06/18 20:08; Admin Do se 10 MG; Start 01/25/18 at 21:00 Carvedilol (Coreg) 12.5 mg BID PO Last administered on 02/06/18 20:08; Admin Dose 12.5 MG; Start 01/25/18 at 21:00 Duloxetine HCl (Cymbalta) 30 mg DAILY PO Last administered on 02/06/18 08:52; Admin Dose 30 MG; Start 01/26/18 at 09:00 Famotidine (Pepcid) 20 mg BID PO Last administered on 02/06/18 20:08; Admin Dose 20 MG; Start 01/25/18 at 21:00 Folic Acid (Folic Acid) 1 mg DAILY PO Last administered on 02/06/18 08:52; Admin Dose 1 MG; Start 01/26/18 at 09:00 Gabapentin (Neurontin) 100 mg BID PO Last administered on 02/06/18 20:08; Admin Dose 100 MG; Start 01/25/18 at 21:00 Isoniazid (Isoniazid) 300 mg DAILY PO Last administered on 02/06/18 08:53; Admin Dose 300 MG; Start 01/26/18 at 09:00 Magnesium Oxide (Mag-Ox 400) 400 mg BID PO Last administered on 02/06/18 20:08; Admin Dose 400 MG; Start 01/25/18 at 21:00 Nystatin 1 applic BID TOP Last administered on 02/06/18 20:11; Admin Dose 1 APPLIC; Start 01/25/18 at 21:00 Pyridoxine HCl (Vitamin B6) 50 mg DAILY PO Last administered on 02/06/18 08:52; Admin Dose 50 MG; Start 01/26/18 at 09:00 Rifampin (Rifampin) 600 mg DAILY PO Last administered on 02/06/18 08:52; Admin Dose 600 MG; Start 01/26/18 at 09:00 Risperidone (Risperdal) 1 mg QHS PO Last administered on 02/06/18 20:09; Admin Dose 1 MG; Start 01/25/18 at 21:00 Zonisamide (Zonegran) 300 mg QHS PO Last administered on 02/06/18 21:25; Admin Dose 300 MG; Start 01/25/18 at 21:00 Eye Lubricant (Artificial Tears Oph) 1 drop Q8 BOTH EYES Last administered on 02/06/18 21:25; Admin Dose 1 DROP; Start 01/25/18 at 22:00 Miscellaneous Information (Pending [facility] Order For Wound Care) This patient woody... PRN PRN XX wound; Start 01/25/18 at 16:30 Vitamin A/Vitamin D (Vitamin A & D Oint) 1 applic BID TOP Last administered on 02/06/18 20:09; Admin Dose 1 APPLIC; Start 01/26/18 at 21:00 Docusate Sodium/ Ferrous Fumarate (Sangita-Sequels) 1 tab BID PO Last administered on 02/06/18at 20:08; Admin Dose 1 TAB; Start 01/27/18 at 21:00 Docusate Sodium (Colace) 200 mg BID PO Last administered on 02/06/18at 20:08; Admin Dose 200 MG; Start 01/27/18 at 21:00 Enoxaparin Sodium (Lovenox) 40 mg DAILY SC Last administered on 02/06/18at 09:07; Admin Dose 40 MG; Start 01/28/18 at 09:00 Sodium Hypochlorite (Dakin'S (Dilute )) 1 applic DAILY IRR Last administered on 02/06/18at 08:53; Admin Dose 1 APPLIC; Start 01/27/18 at 18:30 Collagenase (Santyl) 1 applic DAILY TOP Last administered on 02/06/18at 08:52; Admin Dose 1 APPLIC; Start 01/27/18 at 17:30 Hydrocortisone (Hydrocortisone 1% Cr) 1 applic BID TOP Last administered on 02/06/18at 20:10; Admin Dose 1 APPLIC; Start 01/27/18 at 21:19 Levofloxacin (Levaquin) 500 mg DAILY@06 PO Last administered on 02/06/18at 06:21; Admin Dose 500 MG; Start 02/02/18 at 14:00; Stop 02/12/18 at 13:59 Collagenase (Santyl) 1 applic DAILY TOP ; Start 02/04/18 at 09:00 Nitroglycerin (Nitroglycerin (Sl Tab) 0.4 Mg) 1 tab Q5M PRN SL ANGINA; Start 02/05/18 at 07:00 Results Result Diagram: 02/04/18 0501 02/04/18 0501 LUKE BONILLA DPM Feb 06, 2018 23:01
[2018-02-07 02:20] VITALS: BP 101/60; PULSE 84; RESP 18
[2018-02-07] MEDS: ARTIFICIAL TEARS 15 ML OPH BOTH EYES SCH ×3 (05:54→21:29)
[2018-02-07] MEDS: LEVOFLOXACIN 500 MG TAB PO SCH (05:54)
--- NOTE | 2018-02-07 06:30 | NUR ---
Patient in room asleep with no signs of distress. Vital signs stable. Patient complained of pain x1, treated with morphine. Benavidez catheter patent and draining clear, orange urine. Wound treatment completed to sacrococcyx and scrotal area this shift. Dressings to bilateral heels clean, dry, and intact. No other changes noted. All needs met and medications administered. Safety precautions and hourly rounding currently in place until the end of shift. Addendum: 02/07/18 at 0653 by BETSY TORRES RN Patient turned every 2 hours this shift. Heels elevated with floating device in place.
[2018-02-07] MEDS: ENOXAPARIN 40 MG/0.4 ML SYG SC SCH (08:14)
[2018-02-07] MEDS: DOCUSATE SODIUM 100 MG CAP PO SCH ×2 (08:15→21:26)
[2018-02-07] MEDS: GABAPENTIN 100 MG CAP PO SCH ×2 (08:15→21:26)
[2018-02-07] MEDS: PYRIDOXINE 50 MG TAB PO SCH (08:15)
[2018-02-07] MEDS: FAMOTIDINE 20 MG TAB PO SCH ×2 (08:15→21:26)
[2018-02-07] MEDS: FERROUS FUMARATE (SR) TAB PO SCH ×2 (08:15→21:26)
[2018-02-07] MEDS: ISONIAZID 300 MG TAB PO SCH (08:15)
[2018-02-07] MEDS: ALLOPURINOL 100 MG TAB PO SCH (08:15)
[2018-02-07] MEDS: MAGNESIUM OXIDE 400 MG TAB PO SCH ×2 (08:15→21:28)
[2018-02-07] MEDS: RIFAMPIN 300 MG CAP PO SCH (08:16)
[2018-02-07] MEDS: NYSTATIN 15 GM POWDER BTL TOP SCH ×2 (08:16→21:29)
[2018-02-07] MEDS: VITAMIN A & D 5 GM OINT PACKET TOP SCH ×2 (08:16→21:25)
[2018-02-07] MEDS: COLLAGENASE 5 GM (UD JAR) TOP SCH ×2 (08:16→08:18)
[2018-02-07] MEDS: DULOXETINE 30 MG CAP DR PO SCH (08:16)
[2018-02-07] MEDS: BACLOFEN 10 MG TAB PO SCH ×3 (08:16→21:26)
[2018-02-07] MEDS: HYDROCORTISONE 1% 28 GM CR TOP SCH ×2 (08:16→21:29)
[2018-02-07] MEDS: FOLIC ACID 1 MG TAB PO SCH (08:16)
[2018-02-07] MEDS: SODIUM HYPOCHLORITE (1/40) 1 APPLIC BTL IRR SCH (08:17)
[2018-02-07] MEDS: BALSAM PERU/CASTOR OIL 60 GM TUBE TOP SCH (08:18)
[2018-02-07 08:32] VITALS: BP 115/72; PULSE 88; RESP 19
[2018-02-07] MEDS: HYDROCODONE/APAP (5/325) TAB PO PRN ×2 (11:00→18:54)
--- NOTE | 2018-02-07 13:08 | PN ---
Date/Time of Note Date/Time of Note DATE: 02/07/18 TIME: 13:04 Assessment/Plan VTE Prophylaxis Risk score (from Nsg)>0 risk: 4 SCD applied (from Nsg): Yes Pharmacological prophylaxis: heparin Lines/Catheters IV Catheter Type (from Nrsg): Saline Lock Assessment/Plan Problems: (1) Paraplegia Status: Chronic Comment: States back 6 months and is reportedly due to some type of a spinal cord syndrome. The somewhat nebulous description we do not have any data on what caused this. He is normally treated at [facility]. (2) Essential hypertension Status: Chronic Comment: Adequate control. (3) Anemia Status: Acute Comment: He has chronic inflammation plus he has an iron deficiency. He is on iron and I am going to go ahead and give him a single dose of Neupogen to try and bring him up. Qualifiers: Anemia type: unspecified type Qualified Codes: D64.9 - Anemia, unspecified (4) Decubitus ulcer of left heel, stage 1 Status: Chronic Comment: Noted being managed by podiatry (5) Decubitus ulcer of right heel, unstageable Status: Chronic Comment: Being managed by podiatry and on antibiotics (6) Latent tuberculosis Status: Chronic Comment: This is a? Diagnosis. We do not have any data on this and he has been on treatment for what may actually qualify as a full course of treatment. I will try and have our infection control people speak to the [facility] tuberculosis control who should have full date on him if he is on a multiple drug regimen. (7) Diabetes mellitus type 2 in nonobese Comment: I actually question this diagnosis based on his normal sugars and normal A1c on no treatment. Subjective 24 Hr Interval Summary Free Text/Dictation Patient reports he has some pain from his feet but is otherwise doing well. Constitutional: no complaints (Please note he states that he was told about the possible infection requiring the anti-TB medicines at the time of his back surgery a year and a half ago. He believes he is been on treatment for over 1 y ear.) Respiratory: no complaints Cardiovascular: no complaints Gastrointestinal: no complaints Genitourinary: no complaints Exam/Review of Systems Vital Signs Vitals Vital Signs Date Temp Pulse Resp B/P (MAP) Pulse Ox O2 O2 Flow FiO2 Time Delivery Rate 02/07/18 97.7 88 19 115/72 98 Room Air 08:32 (86) Intake and Output 02/06/18 02/06/18 02/07/18 1515:00 23:00 07:00 IntakeIntake Total 600 ml 240 ml 1000 ml OutputOutput Total 550 ml 500 ml BalanceBalance 600 ml -310 ml 500 ml Exam Constitutional: alert, oriented Neck: supple, non-tender Respiratory: clear to auscultation, normal air movement Cardiovascular: regular rate and rhythm, nl pulses Medications Medications Current Medications IV Flush (NS 3 ml) 3 ml PER PROTOCOL IV ; Start 01/25/18 at 15:30 Ondansetron HCl (Zofran Inj) 4 mg Q6H PRN IV NAUSEA AND/OR VOMITING; Start 01/25/18 at 15:30 Acetaminophen (Tylenol Tab) 650 mg Q6H PRN PO PAIN LEVEL 1-3 OR FEVER; Start 01/25/18 at 15:30 Acetaminophen/ Hydrocodone Bitart ([place] (5/325)) 1 tab Q6H PRN PO MODERATE PAIN LEVEL 4-6 Last administered on 02/07/18at 11:00; Admin Dose 1 TAB; Start 01/25/18 at 15:30 Morphine Sulfate (morphine) 2 mg Q4H PRN IV SEVERE PAIN LEVEL 7-10 Last administered on 02/06/18 20:09; Admin Dose 2 MG; Start 01/25/18 at 15:30 Allopurinol (Zyloprim) 100 mg DAILY PO Last administered on 02/07/18 08:15; Admin Dose 100 MG; Start 01/26/18 at 09:00 Baclofen (Lioresal) 10 mg TID PO Last administered on 02/07/18 08:16; Admin Dose 10 MG; Start 01/25/18 at 21:00 Carvedilol (Coreg) 12.5 mg BID PO Last administered on 02/07/18 08:15; Admin Dose 12.5 MG; Start 01/25/18 at 21:00 Duloxetine HCl (Cymbalta) 30 mg DAILY PO Last administered on 02/07/18 08:16; Admin Dose 30 MG; Start 01/26/18 at 09:00 Famotidine (Pepcid) 20 mg BID PO Last administered on 02/07/18 08:15; Admin Dose 20 MG; Start 01/25/18 at 21:00 Folic Acid (Folic Acid) 1 mg DAILY PO Last administered on 02/07/18 08:16; Admin Dose 1 MG; Start 01/26/18 at 09:00 Gabapentin (Neurontin) 100 mg BID PO Last administered on 02/07/18 08:15; Admin Dose 100 MG; Start 01/25/18 at 21:00 Isoniazid (Isoniazid) 300 mg DAILY PO Last administered on 02/07/18 08:15; Admin Dose 300 MG; Start 01/26/18 at 09:00 Magnesium Oxide (Mag-Ox 400) 400 mg BID PO Last administered on 02/07/18 08:15; Admin Dose 400 MG; Start 01/25/18 at 21:00 Nystatin 1 applic BID TOP Last administered on 02/07/18 08:16; Admin Dose 1 APPLIC; Start 01/25/18 at 21:00 Pyridoxine HCl (Vitamin B6) 50 mg DAILY PO Last administered on 02/07/18 08:15; Admin Dose 50 MG; Start 01/26/18 at 09:00 Rifampin (Rifampin) 600 mg DAILY PO Last administered on 02/07/18 08:16; Admin Dose 600 MG; Start 01/26/18 at 09:00 Risperidone (Risperdal) 1 mg QHS PO Last administered on 02/06/18 20:09; Admin Dose 1 MG; Start 01/25/18 at 21:00 Zonisamide (Zonegran) 300 mg QHS PO Last administered on 02/06/18 21:25; Admin Dose 300 MG; Start 01/25/18 at 21:00 Eye Lubricant (Artificial Tears Oph) 1 drop Q8 BOTH EYES Last administered on 02/07/18 05:54; Admin Dose 1 DROP; Start 01/25/18 at 22:00 [facility] This patient woody... PRN PRN XX wound; Start 01/25/18 at 16:30 Vitamin A/Vitamin D (Vitamin A & D Oint) 1 applic BID TOP Last administered on 02/07/18 08:16; Admin Dose 1 APPLIC; Start 01/26/18 at 21:00 Docusate Sodium/ Ferrous Fumarate (Sangita-Sequels) 1 tab BID PO Last administered on 12/8/18at 08:15; Admin Dose 1 TAB; Start 01/27/18 at 21:00 Docusate Sodium (Colace) 200 mg BID PO Last administered on 02/07/18at 08:15; Admin Dose 200 MG; Start 01/27/18 at 21:00 Enoxaparin Sodium (Lovenox) 40 mg DAILY SC Last administered on 02/07/18at 08:14; Admin Dose 40 MG; Start 01/28/18 at 09:00 Sodium Hypochlorite (Dakin'S (Dilute 40)) 1 applic DAILY IRR Last administered on 02/07/18at 08:17; Admin Dose 1 APPLIC; Start 01/27/18 at 18:30 Collagenase (Santyl) 1 applic DAILY TOP Last administered on 02/07/18at 08:16; Admin Dose 1 APPLIC; Start 01/27/18 at 17:30 Hydrocortisone (Hydrocortisone 1% Cr) 1 applic BID TOP Last administered on 02/07/18at 08:16; Admin Dose 1 APPLIC; Start 01/27/18 at 21:19 Levofloxacin (Levaquin) 500 mg DAILY@06 PO Last administered on 02/07/18at 05:54; Admin Dose 500 MG; Start 02/02/18 at 14:00; Stop 02/12/18 at 13:59 Collagenase (Santyl) 1 applic DAILY TOP ; Start 02/04/18 at 09:00 Nitroglycerin (Nitroglycerin (Sl Tab) 0.4 Mg) 1 tab Q5M PRN SL ANGINA; Start 02/05/18 at 07:00 Results Result Diagram: 02/07/18 0444 02/07/18 0444 Results 24 hrs Laboratory Tests Test 02/07/18 04:44 White Blood Count 4.3 L Red Blood Count 3.13 L Hemoglobin 8.2 L Hematocrit 25.5 L Mean Corpuscular Volume 81.5 L Mean Corpuscular Hemoglobin 26.2 L Mean Corpuscular Hemoglobin Concent 32.2 Red Cell Distribution Width 16.8 H Platelet Count 343 Mean Platelet Volume 8.7 Immature Granulocytes % 0.700 H Neutrophils % 47.7 Lymphocytes % 27.7 Monocytes % 14.5 H Eosinophils % 8.2 H Basophils % 1.2 Nucleated Red Blood Cells % 0.0 Immature Granulocytes # 0.030 Neutrophils # 2.1 Lymphocytes # 1.2 Monocytes # 0.6 Eosinophils # 0.4 Basophils # 0.1 Nucleated Red Blood Cells # 0.0 Sodium Level 137 Potassium Level 4.3 Chloride Level 109 Carbon Dioxide Level 20 L Anion Gap 8 Blood Urea Nitrogen 14 Creatinine 0.88 Est Glomerular Filtrat Rate mL/min > 60 Glucose Level 87 Calcium Level 8.6 BERTIN EATON MD Feb 07, 2018 13:08
[2018-02-07 14:00] VITALS: BP 108/62; PULSE 85; RESP 18
[2018-02-07] MEDS ORDERED: EPOETIN 10000 UNITS/1 ML INJ (ESRD) SC ONE (15:00)
--- NOTE | 2018-02-07 15:00 | NUR ---
During wound care dressing found a 1x1 intact blister in right posterior leg under kerlix dressing. Skin is intact. No open skin noted. No redness noted. No s/s of infection noted. No complain of pain or discomfort. Addendum: 02/07/18 at 1832 by REGINA SORIANO RN Pt. and Dr. David made aware. Cleanse the blister with NS and covered with foam dressing. Addendum: 02/07/18 at 183 by REGINA SORIANO RN Pt is wearing heel medic, no kink tubes under pt. skin, no visible indent from medical delivery technician, equipment is in proper position noted.
--- NOTE | 2018-02-07 18:33 | NUR ---
Pt. is alert, awake and verbally responsive. Respiration are even and non labored. No acute distress or discomfort noted.Wound care rendered. No s/s of infection noted. No bleeding noted. Tolerated well. Will endorse accordingly.
[2018-02-07 20:00] VITALS: BP 95/55; PULSE 104; RESP 18
[2018-02-07 20:01] VITALS: BP 103/63
[2018-02-07 21:20] VITALS: BP 119/63; PULSE 85
[2018-02-07] MEDS: ZONISAMIDE 100 MG CAP PO SCH (21:26)
[2018-02-07] MEDS: RISPERIDONE 1 MG TAB PO SCH (21:28)
[2018-02-08] MEDS: morphine 2 MG INJ IV PRN ×2 (01:50→08:59)
[2018-02-08 02:00] VITALS: BP 119/67; PULSE 103; RESP 18
--- NOTE | 2018-02-08 05:11 | NUR ---
Patient in room asleep with no signs of distress at this time. Vital signs stable this shift. Patient complained of pain x1 this shift; administered morphine per MD order. Patient denied pain thereafter. Wound treatment completed this shift per MD order with patient tolerating treatment well. Low air loss mattress in use at beginning of shift. Patient began to refuse of low air loss mattress 0200. Patient continued to refuse after providing education behind the need and importance; Amador RN (charge nurse) aware. Allevyn in place to bony prominences for wound prevention. No other changes otherwise noted from previous. All needs met and medications administered. Patient turned every 2 hours this shift. Heel currently elevated. Safety precautions and hourly rounding currently in place until the end of shift.
[2018-02-08] MEDS: ARTIFICIAL TEARS 15 ML OPH BOTH EYES SCH ×3 (05:45→21:14)
[2018-02-08] MEDS: LEVOFLOXACIN 500 MG TAB PO SCH (05:45)
[2018-02-08 08:33] VITALS: BP 110/69; PULSE 81; RESP 17
[2018-02-08] MEDS: SODIUM HYPOCHLORITE (1/40) 1 APPLIC BTL IRR SCH (08:56)
[2018-02-08] MEDS: ENOXAPARIN 40 MG/0.4 ML SYG SC SCH (08:57)
[2018-02-08] MEDS: COLLAGENASE 5 GM (UD JAR) TOP SCH ×2 (09:00)
[2018-02-08] MEDS: DOCUSATE SODIUM 100 MG CAP PO SCH ×2 (09:00→21:15)
[2018-02-08] MEDS: VITAMIN A & D 5 GM OINT PACKET TOP SCH ×2 (09:00→21:15)
[2018-02-08] MEDS: DULOXETINE 30 MG CAP DR PO SCH (09:00)
[2018-02-08] MEDS: MAGNESIUM OXIDE 400 MG TAB PO SCH ×2 (09:01→21:15)
[2018-02-08] MEDS: FERROUS FUMARATE (SR) TAB PO SCH ×2 (09:01→21:15)
[2018-02-08] MEDS: BACLOFEN 10 MG TAB PO SCH ×3 (09:01→21:15)
[2018-02-08] MEDS: ALLOPURINOL 100 MG TAB PO SCH (09:01)
[2018-02-08] MEDS: PYRIDOXINE 50 MG TAB PO SCH (09:01)
[2018-02-08] MEDS: FOLIC ACID 1 MG TAB PO SCH (09:01)
[2018-02-08] MEDS: FAMOTIDINE 20 MG TAB PO SCH ×2 (09:01→21:15)
[2018-02-08] MEDS: GABAPENTIN 100 MG CAP PO SCH ×2 (09:01→21:15)
[2018-02-08] MEDS: ISONIAZID 300 MG TAB PO SCH (09:01)
[2018-02-08] MEDS: NYSTATIN 15 GM POWDER BTL TOP SCH ×2 (09:02→21:16)
[2018-02-08] MEDS: BALSAM PERU/CASTOR OIL 60 GM TUBE TOP SCH (09:02)
[2018-02-08] MEDS: RIFAMPIN 300 MG CAP PO SCH (09:02)
[2018-02-08] MEDS: HYDROCORTISONE 1% 28 GM CR TOP SCH ×2 (09:02→21:53)
[2018-02-08] MEDS: HYDROCODONE/APAP (5/325) TAB PO PRN ×2 (10:37→19:10)
--- NOTE | 2018-02-08 11:34 | PN ---
Date/Time of Note Date/Time of Note DATE: 02/08/18 TIME: 11:31 Assessment/Plan VTE Prophylaxis Risk score (from Ns)>0 risk: 4 SCD applied (from Ns): Yes SCD contraindicated: bilateral LE trauma Pharmacological prophylaxis: heparin Lines/Catheters IV [facility] Saline Lock Urinary Cath still in place: Yes Reason Cath still needed: urinary retention Assessment/Plan Problems: (1) Decubitus ulcer of right heel, unstageable Status: Chronic Comment: As per podiatric colleagues in the wound care team. Discharge planning to locate a place for the long-term treatment (2) Decubitus ulcer of left heel, stage 1 Status: Chronic Comment: Progressing nicely (3) Cellulitis Status: Acute Comment: Resolving nicely Qualifiers: Site of cellulitis: extremity Site of cellulitis of extremity: lower extremity Laterality: unspecified laterality Qualified Codes: L03.119 - Cellulitis of unspecified part of limb (4) Latent tuberculosis Status: Chronic Comment: Still awaiting data from infection control team (5) Diabetes mellitus type 2 in nonobese Status: Chronic Comment: Adequate glycemic control (6) Essential hypertension Status: Chronic Comment: Good blood pressure control (7) Anemia Status: Acute Comment: Undoubtedly due to the combination of iron deficiency and significant systemic inflammation, please see the sedimentation Qualifiers: Anemia type: unspecified type Qualified Codes: D64.9 - Anemia, unspecified Subjective 24 Hr Interval Summary Free Text/Dictation She reports that he is feeling okay. Constitutional: no complaints (No fevers chills or sweats) Respiratory: no complaints Cardiovascular: no complaints Gastrointestinal: no complaints Exam/Review of Systems Vital Signs Vitals Vital Signs Date Temp Pulse Resp B/P (MAP) Pulse Ox O2 O2 Flow FiO2 Time Delivery Rate 02/08/18 98.1 81 17 110/69 98 Room Air 08:33 (83) Intake and Output 02/07/18 02/07/18 02/08/18 1515:00 23:00 07:00 IntakeIntake Total 1000 ml 620 ml OutputOutput Total 1300 ml BalanceBalance 1000 ml -680 ml Exam Constitutional: alert, oriented Respiratory: clear to auscultation, normal air movement Cardiovascular: regular rate and rhythm, nl pulses Gastrointestinal: soft, nl liver, spleen, non-tender Extremities: other (The dictation from wound team.) Medications Medications Current Medications IV Flush (NS 3 ml) 3 ml PER PROTOCOL IV ; Start 01/25/18 at 15:30 Ondansetron HCl (Zofran Inj) 4 mg Q6H PRN IV NAUSEA AND/OR VOMITING; Start 01/25/18 at 15:30 Acetaminophen (Tylenol Tab) 650 mg Q6H PRN PO PAIN LEVEL 1-3 OR FEVER; Start 01/25/18 at 15:30 Acetaminophen/ Hydrocodone Bitart ([place] (5/325)) 1 tab Q6H PRN PO MODERATE PAIN LEVEL 4-6 Last administered on 02/08/18 10:37; Admin Dose 1 TAB; Start 01/25/18 at 15:30 Morphine Sulfate (morphine) 2 mg Q4H PRN IV SEVERE PAIN LEVEL 7-10 Last administered on 02/08/18 08:59; Admin Dose 2 MG; Start 01/25/18 at 15:30 Allopurinol (Zyloprim) 100 mg DAILY PO Last administered on 02/08/18 09:01; Admin Dose 100 MG; Start 01/26/18 at 09:00 Baclofen (Lioresal) 10 mg TID PO Last administered on 02/08/18 09:01; Admin Dose 10 MG; Start 01/25/18 at 21:00 Carvedilol (Coreg) 12.5 mg BID PO Last administered on 02/08/18 09:01; Admin Dose 12.5 MG; Start 01/25/18 at 21:00 Duloxetine HCl (Cymbalta) 30 mg DAILY PO Last administered on 02/08/18 09:00; Admin Dose 30 MG; Start 01/26/18 at 09:00 Famotidine (Pepcid) 20 mg BID PO Last administered on 02/08/18 09:01; Admin Dose 20 MG; Start 01/25/18 at 21:00 Folic Acid (Folic Acid) 1 mg DAILY PO Last administered on 02/08/18 09:01; Admin Dose 1 MG; Start 01/26/18 at 09:00 Gabapentin (Neurontin) 100 mg BID PO Last administered on 02/08/18 09:01; Admin Dose 100 MG; Start 01/25/18 at 21:00 Isoniazid (Isoniazid) 300 mg DAILY PO Last administered on 02/08/18 09:01; Admin Dose 300 MG; Start 01/26/18 at 09:00 Magnesium Oxide (Mag-Ox 400) 400 mg BID PO Last administered on 02/08/18 09:01; Admin Dose 400 MG; Start 01/25/18 at 21:00 Nystatin 1 applic BID TOP Last administered on 02/08/18 09:02; Admin Dose 1 APPLIC; Start 01/25/18 at 21:00 Pyridoxine HCl (Vitamin B6) 50 mg DAILY PO Last administered on 02/08/18 09:01; Admin Dose 50 MG; Start 01/26/18 at 09:00 Rifampin (Rifampin) 600 mg DAILY PO Last administered on 02/08/18 09:02; Admin Dose 600 MG; Start 01/26/18 at 09:00 Risperidone (Risperdal) 1 mg QHS PO Last administered on 02/07/18 21:28; Admin Dose 1 MG; Start 01/25/18 at 21:00 Zonisamide (Zonegran) 300 mg QHS PO Last administered on 02/07/18 21:26; Admin Dose 300 MG; Start 01/25/18 at 21:00 Eye Lubricant (Artificial Tears Oph) 1 drop Q8 BOTH EYES Last administered on 02/08/18 05:45; Admin Dose 1 DROP; Start 01/25/18 at 22:00 Miscellaneous Information (Pending [facility] Order For Wound Care) This patient woody... PRN PRN XX wound; Start 01/25/18 at 16:30 Vitamin A/Vitamin D (Vitamin A & D Oint) 1 applic BID TOP Last administered on 02/08/18 09:00; Admin Dose 1 APPLIC; Start 01/26/18 at 21:00 Docusate Sodium/ Ferrous Fumarate (Sangita-Sequels) 1 tab BID PO Last administered on 02/08/18 09:01; Admin Dose 1 TAB; Start 01/27/18 at 21:00 Docusate Sodium (Colace) 200 mg BID PO Last administered on 02/08/18 09:00; Admin Dose 200 MG; Start 01/27/18 at 21:00 Enoxaparin Sodium (Lovenox) 40 mg DAILY SC Last administered on 02/08/18 08:57; Admin Dose 40 MG; Start 01/28/18 at 09:00 Sodium Hypochlorite (Dakin'S (Dilute )) 1 applic DAILY IRR Last administered on 02/08/18at 08:56; Admin Dose 1 APPLIC; Start 01/27/18 at 18:30 Collagenase (Santyl) 1 applic DAILY TOP Last administered on 02/08/18at 09:00; Admin Dose 1 APPLIC; Start 01/27/18 at 17:30 Hydrocortisone (Hydrocortisone 1% Cr) 1 applic BID TOP Last administered on 02/08/18at 09:02; Admin Dose 1 APPLIC; Start 01/27/18 at 21:19 Levofloxacin (Levaquin) 500 mg DAILY@06 PO Last administered on 02/08/18at 05:45; Admin Dose 500 MG; Start 02/02/18 at 14:00; Stop 02/12/18 at 13:59 Collagenase (Santyl) 1 applic DAILY TOP ; Start 02/04/18 at 09:00 Nitroglycerin (Nitroglycerin (Sl Tab) 0.4 Mg) 1 tab Q5M PRN SL ANGINA; Start 02/05/18 at 07:00 Results Result Diagram: 02/08/1862302/08/18 0624 Results 24 hrs Laboratory Tests Test 02/08/18 06:24 White Blood Count 3.8 L Red Blood Count 3.33 L Hemoglobin 8.6 L Hematocrit 27.1 L Mean Corpuscular Volume 81.4 L Mean Corpuscular Hemoglobin 25.8 L Mean Corpuscular Hemoglobin Concent 31.7 L Red Cell Distribution Width 16.5 H Platelet Count 346 Mean Platelet Volume 9.0 Immature Granulocytes % 0.500 H Neutrophils % 43.5 Lymphocytes % 32.0 Monocytes % 13.6 H Eosinophils % 9.4 H Basophils % 1.0 Nucleated Red Blood Cells % 0.0 Immature Granulocytes # 0.020 Neutrophils # 1.7 Lymphocytes # 1.2 Monocytes # 0.5 Eosinophils # 0.4 Basophils # 0.0 Nucleated Red Blood Cells # 0.0 Erythrocyte Sedimentation Rate 105 H Sodium Level 136 Potassium Level 4.3 Chloride Level 106 Carbon Dioxide Level 21 Anion Gap 9 Blood Urea Nitrogen 19 Creatinine 0.77 Est Glomerular Filtrat Rate mL/min > 60 Glucose Level 88 Calcium Level 9.0 Total Bilirubin 0.3 Direct Bilirubin 0.00 Indirect Bilirubin 0.3 Aspartate Amino Transf (AST/SGOT) 19 Alanine Aminotransferase (ALT/SGPT) 7 L Alkaline Phosphatase 109 Total Protein 6.7 Albumin 3.2 L Globulin 3.50 H Albumin/Globulin Ratio 0.91 BERTIN EATON MD Feb 08, 2018 11:34
[2018-02-08 14:00] VITALS: BP 112/65; PULSE 85; RESP 17
--- NOTE | 2018-02-08 18:36 | NUR ---
Pt is alert, awake and verbally responsive. Respiration are even and non labored. No acute distress or discomfort noted. Wound care rendered. No s/s of infection noted. Tolerated well. Picture taken during this shift. No significant changes noted
[2018-02-08 20:32] VITALS: BP 112/57; PULSE 83; RESP 17
[2018-02-08] MEDS: ZONISAMIDE 100 MG CAP PO SCH (21:14)
[2018-02-08] MEDS: RISPERIDONE 1 MG TAB PO SCH (21:15)
--- NOTE | 2018-02-08 23:15 | NUR ---
Wound consult ordered to re-evaluate wounds: Sacrococcyx (Stage III PI vs. Unstageable PI). Wound bed with eschar and slough noted upon assessment. Redness surrounding site. Wound 3x3x0 with scant amount of serosanginuous drainage noted. Wound treatment completed as ordered by . Intact fluid-filled blister noted to posterior RT lower leg. Wound 1x1 with pale pink/maroonish color noted. Wound treatment completed per wound protocol. Bilateral heels elevated at this time with dressings clean, dry, and intact. Allevyn dressing in place to bony prominences for wound prevention. Patient being turned every 2 hours and low-air mattress in place at this time. Will continue to monitor. Addendum: 02/09/18 at 0254 by BETSY TORRES RN Patient verbalized understanding when discussing the importance of skin assessment/wound treatment.
[2018-02-09] MEDS: morphine 2 MG INJ IV PRN ×3 (00:33→21:45)
[2018-02-09 02:00] VITALS: BP 107/60; PULSE 94; RESP 17
--- NOTE | 2018-02-09 05:10 | NUR ---
Patient in room asleep with no signs of distress. Vital signs stable this shift. Patient complained of pain x1. Administered morphine per MD order; patient denied pain thereafter. Wound treatment completed this shift with patient tolerating procedure. No other changes otherwise noted from previous. Patient turned every 2 hours with heels kept elevated at all times. All needs met and medications administered per MD order. Safety precautions and hourly rounding currently in place until the end of shift.
[2018-02-09] MEDS: LEVOFLOXACIN 500 MG TAB PO SCH (05:40)
[2018-02-09] MEDS: ARTIFICIAL TEARS 15 ML OPH BOTH EYES SCH ×4 (05:41→21:45)
[2018-02-09] MEDS: ENOXAPARIN 40 MG/0.4 ML SYG SC SCH (09:32)
[2018-02-09 09:37] VITALS: BP 98/60; PULSE 93; RESP 16
[2018-02-09] MEDS: HYDROCODONE/APAP (5/325) TAB PO PRN ×2 (09:38→18:25)
[2018-02-09] MEDS: DULOXETINE 30 MG CAP DR PO SCH (09:39)
[2018-02-09] MEDS: COLLAGENASE 5 GM (UD JAR) TOP SCH ×2 (09:39)
[2018-02-09] MEDS: FERROUS FUMARATE (SR) TAB PO SCH ×2 (09:39→21:35)
[2018-02-09] MEDS: FOLIC ACID 1 MG TAB PO SCH (09:40)
[2018-02-09] MEDS: DOCUSATE SODIUM 100 MG CAP PO SCH ×3 (09:40→21:44)
[2018-02-09] MEDS: BACLOFEN 10 MG TAB PO SCH ×3 (09:40→21:35)
[2018-02-09] MEDS: PYRIDOXINE 50 MG TAB PO SCH (09:40)
[2018-02-09] MEDS: ALLOPURINOL 100 MG TAB PO SCH (09:40)
[2018-02-09] MEDS: MAGNESIUM OXIDE 400 MG TAB PO SCH ×2 (09:40→21:37)
[2018-02-09] MEDS: RIFAMPIN 300 MG CAP PO SCH (09:40)
[2018-02-09] MEDS: GABAPENTIN 100 MG CAP PO SCH ×2 (09:41→21:37)
[2018-02-09] MEDS: ISONIAZID 300 MG TAB PO SCH (09:41)
[2018-02-09] MEDS: FAMOTIDINE 20 MG TAB PO SCH ×2 (09:41→21:35)
[2018-02-09] MEDS: BALSAM PERU/CASTOR OIL 60 GM TUBE TOP SCH (09:59)
[2018-02-09] MEDS: NYSTATIN 15 GM POWDER BTL TOP SCH ×2 (09:59→21:38)
[2018-02-09] MEDS: VITAMIN A & D 5 GM OINT PACKET TOP SCH ×2 (10:00→21:35)
[2018-02-09] MEDS: HYDROCORTISONE 1% 28 GM CR TOP SCH ×2 (10:01→21:38)
[2018-02-09] MEDS: SODIUM HYPOCHLORITE (1/40) 1 APPLIC BTL IRR SCH (10:09)
--- NOTE | 2018-02-09 11:15 | NUR ---
OT NOTE S: Pt cleared per MJ, family/friends present at bedside. Pt stating he is scared to sit up due to his new sacral wound. Pt agreeable to bilateral therex only. O: Pt found supine with HOB elevated. Pt completed bilateral therex with no additional weight. RUE completed bicep curls, shoulder flexion, and shoulder punches 3x10 with visual/verbal cueing. Pt tolerated AAROM of LUE to achieve full ROM of same exercises 3 sets of 10. Pt refusal of additional treatment. Requested to attempt EOB tomorrow. Pt's ex stated she would like the mathur to be emptied, RN notified. A: Fair tolerance. P: Continue POC.
--- NOTE | 2018-02-09 11:16 | NUR ---
Wound Care Consult: Patient last seen by wound nurse on 02/02/18. 57-year-old male with a history of paraplegia reportedly for the last 6 months secondary to spinal cord syndrome presents to the ER with ulcers on both his feet. Patient awake, alert, oriented. He is able to turn with moderate assist. Benavidez cath in place. Incontinent of bowel. Patient seen by Tool Filer Hand Dr. Courtney for bilateral lower extremities wounds. Sacrococcyx Stage 3 pressure injury (evolved). Condition present on admission. 11.5cm x 6cm x 0.2cm. Wound bed with 25% black non-viable tissue. 75% Inger-red granulating tissue surrounding the black Periwound pinkish resurfaced sure tissue. Small serosanguineous drainage. No odor. Treatment recommendation include, Cleanse area with normal saline, pat dry, apply Santyl ointment to wound bed. Then, cover with cut-to-fit adaptic and dry dressing. Change daily. and cover with foam border dressing daily and as needed. Right lower posterior leg, superior to ankle with serosanguineous filled blister. 0.5cm x0.3cm. Treatment recommendation include, apply Venelex ointment and cover foam border dressing BID and as needed. Low air loss surface. Elevate Heels with Pillows to off-load Reposition every 2 hours per department protocol Report skin changes to PMD and/or WOCN skin changes for further evaluation WOCN discussed with MONTSE, unit automotive service writer and treatment recommendation. Unit RN to coordinate with PMD as discussed. Keegan Bustamante RN MSN WOCN CM
[2018-02-09 14:45] VITALS: BP 111/65; PULSE 84; RESP 16
--- NOTE | 2018-02-09 15:01 | NUR ---
PT NOTE Attempted to see pt for PT session. Pt refused, requesting PT return tomorrow due to pt anticipating undergoing dressing change of sacral wound later today. Pt educated that PT will not interfere with wound care but pt continued to refuse, requesting PT return tomorrow. Will follow up if time permits or tomorrow. RN aware.
--- NOTE | 2018-02-09 15:22 | PN ---
Date/Time of Note Date/Time of Note DATE: 02/09/18 TIME: 15:21 Assessment/Plan VTE Prophylaxis Risk score (from Nsg)>0 risk: 5 SCD applied (from Nsg): Yes Pharmacological prophylaxis: LMWH Lines/Catheters IV Catheter Type (from Nrsg): Saline Lock Urinary Cath still in place: Yes Reason Cath still needed: pres ulcer contaminated by urine Assessment/Plan Hospital Course SUBJECTIVE: No acute overnight episodes. OBJECTIVE: Vital signs-see below PHYSICAL EXAM: Constitutional: Bedbound male, not in acute distress. Psych: nl mood/affect, no complaints Head: atraumatic, normocephalic Eyes: nl conjunctiva, nl sclera ENMT: mucosa pink and moist, nl external ears & nose Neck: non-tender, supple Respiratory: clear to auscultation, normal air movement Cardiovascular: nl pulses, regular rate and rhythm Gastrointestinal: non-tender, soft, bowel sounds active in all 4 quadrants. Musculoskeletal/extremities: Paraplegic. Normal pulses,no cyanosis, no edema. Neurological: Alert oriented 3,nl speech, nl strength Skin: Bilateral heel with ulcers, covered with dressing. No oozing noted on dressing. Nl turgor ASSESSMENT/PLAN: Very unfortunate 57-year-old male with a history of paraplegia secondary to spinal cord syndrome 6 months ago, who also resides in a halfway, presented to the emergency room with worsening bilateral heel ulcers with foul-smelling drainage 1. Bilateral heel Decub ulcers -status post excisional debridement of bilateral heel decubitus. No evidence of osteomyelitis. -Continue Levaquinx1 more week -Continue wound care per podiatry recommendation with Dakin's irrigation/Xeroform/Kerlix dressing. 2. Paraplegia secondary to spinal disorder and back surgery 6 months ago -Exact nature of disorder and surgery unclear -Continue baclofen 3. Likely latent TB per home meds -Continue isoniazid 4. Depression -Continue home Cymbalta 5. Hypertension -Continue Coreg 6. Debility secondary to #2. -Patient resides in a halfway. 7. Chronic anemia with mild iron deficiency. -Stable H&H after 1 unit transfusion. -Continue oral iron replacement. Prophylaxis:Lovenox/Pepcid Diet: Regular CODE STATUS: Full code Disposition: Patient is medically stable for discharge to detention facility with continuation of wound care. Case management to facilitate placement. Patient to follow-up with [facility] wound care clinic in 1 week after discharge. Patient was seen in collaboration with Dr. Awad. Exam/Review of Systems Vital Signs Vitals Vital Signs Date Temp Pulse Resp B/P (MAP) Pulse Ox O2 O2 Flow FiO2 Time Delivery Rate 02/09/18 98.0 84 16 111/65 97 14:45 (80) 02/09/18 Room Air 02:00 Intake and Output 02/08/18 02/08/18 02/09/18 1515:00 23:00 07:00 IntakeIntake Total 1500 ml 320 ml OutputOutput Total 800 ml 900 ml BalanceBalance 700 ml -580 ml Medications Medications Current Medications IV Flush (NS 3 ml) 3 ml PER PROTOCOL IV ; Start 01/25/18 at 15:30 Ondansetron HCl (Zofran Inj) 4 mg Q6H PRN IV NAUSEA AND/OR VOMITING; Start at 15:30 Acetaminophen (Tylenol Tab) 650 mg Q6H PRN PO PAIN LEVEL 1-3 OR FEVER; Start 01/25/18 at 15:30 Acetaminophen/ Hydrocodone Bitart ([place] (5/325)) 1 tab Q6H PRN PO MODERATE PAIN LEVEL 4-6 Last administered on 02/09/18 09:38; Admin Dose 1 TAB; Start 01/25/18 at 15:30 Morphine Sulfate (morphine) 2 mg Q4H PRN IV SEVERE PAIN LEVEL 7-10 Last administered on 02/09/18at 00:33; Admin Dose 2 MG; Start 01/25/18 at 15:30 Allopurinol (Zyloprim) 100 mg DAILY PO Last administered on 02/09/18at 09:40; Admin Dose 100 MG; Start 01/26/18 at 09:00 Baclofen (Lioresal) 10 mg TID PO Last administered on 02/09/18 13:51; Admin Dose 10 MG; Start 01/25/18 at 21:00 Carvedilol (Coreg) 12.5 mg BID PO Last administered on 02/08/18at 21:14; Admin Dose 12.5 MG; Start 01/25/18 at 21:00 Duloxetine HCl (Cymbalta) 30 mg DAILY PO Last administered on 02/09/18 09:39; Admin Dose 30 MG; Start 01/26/18 at 09:00 Famotidine (Pepcid) 20 mg BID PO Last administered on 02/09/18 09:41; Admin Dose 20 MG; Start 01/25/18 at 21:00 Folic Acid (Folic Acid) 1 mg DAILY PO Last administered on 02/09/18 09:40; Admin Dose 1 MG; Start 01/26/18 at 09:00 Gabapentin (Neurontin) 100 mg BID PO Last administered on 02/09/18 09:41; Admin Dose 100 MG; Start 01/25/18 at 21:00 Isoniazid (Isoniazid) 300 mg DAILY PO Last administered on 02/09/18 09:41; Admin Dose 300 MG; Start 01/26/18 at 09:00 Magnesium Oxide (Mag-Ox 400) 400 mg BID PO Last administered on 02/09/18 09:40; Admin Dose 400 MG; Start 01/25/18 at 21:00 Nystatin 1 applic BID TOP Last administered on 02/09/18 09:59; Admin Dose 1 APPLIC; Start 01/25/18 at 21:00 Pyridoxine HCl (Vitamin B6) 50 mg DAILY PO Last administered on 02/09/18 09:40; Admin Dose 50 MG; Start 01/26/18 at 09:00 Rifampin (Rifampin) 600 mg DAILY PO Last administered on 02/09/18 09:40; Admin Dose 600 MG; Start 01/26/18 at 09:00 Risperidone (Risperdal) 1 mg QHS PO Last administered on 02/08/18 21:15; Admin Dose 1 MG; Start 01/25/18 at 21:00 Zonisamide (Zonegran) 300 mg QHS PO Last administered on 02/08/18 21:14; Admin Dose 300 MG; Start 01/25/18 at 21:00 Eye Lubricant (Artificial Tears Oph) 1 drop Q8 BOTH EYES Last administered on 02/09/18 13:51; Admin Dose 1 DROP; Start 01/25/18 at 22:00 Miscellaneous Information (Pending [facility] Order For Wound Care) This patient woody... PRN PRN XX wound; Start 01/25/18 at 16:30 Vitamin A/Vitamin D (Vitamin A & D Oint) 1 applic BID TOP Last administered on 02/09/18 10:00; Admin Dose 1 APPLIC; Start 01/26/18 at 21:00 Docusate Sodium/ Ferrous Fumarate (Sangita-Sequels) 1 tab BID PO Last adm inistered on 02/09/18 09:39; Admin Dose 1 TAB; Start 01/27/18 at 21:00 Docusate Sodium (Colace) 200 mg BID PO Last administered on 02/09/18 09:40; Admin Dose 200 MG; Start 01/27/18 at 21:00 Enoxaparin Sodium (Lovenox) 40 mg DAILY SC Last administered on 02/09/18 09:32; Admin Dose 40 MG; Start 01/28/18 at 09:00 Sodium Hypochlorite (Dakin'S (Dilute )) 1 applic DAILY IRR Last administ ered on 02/09/18 10:09; Admin Dose 1 APPLIC; Start 01/27/18 at 18:30 Collagenase (Santyl) 1 applic DAILY TOP Last administered on 02/09/18 09:39; Admin Dose 1 APPLIC; Start 01/27/18 at 17:30 Hydrocortisone (Hydrocortisone 1% Cr) 1 applic BID TOP Last administered on 02/09/18 10:01; Admin Dose 1 APPLIC; Start 01/27/18 at 21:19 Levofloxacin (Levaquin) 500 mg DAILY@06 PO Last administered on 02/09/18 05:40; Admin Dose 500 MG; Start 02/02/18 at 14:00; Stop 02/12/18 at 13:59 Collagenase (Santyl) 1 applic DAILY TOP Last administered on 02/09/18 09:39; Admin Dose 1 APPLIC; Start 02/04/18 at 09:00 Nitroglycerin (Nitroglycerin (Sl Tab) 0.4 Mg) 1 tab Q5M PRN SL ANGINA; Start 02/05/18 at 07:00 Results Result Diagram: 02/08/1862302/08/18623 LIVIA ADAME NP Feb 09, 2018 15:22
--- NOTE | 2018-02-09 16:53 | NUR ---
DC UPDATE[facility] VOLODYMYR BEVERLY CALLED ME RE UPDATE OF WOUNDS: [phone]. FAXED UPDATED WOUND ASSESSMENT TO [phone]. SNF REFERRALS;NO ACCEPTANCE YET. CASE MANGER [facility] AWARE OF DIFFICULT PLACEMENT HOWEVER WILL NOT AUTHORIZE [facility]REGATE LIVING OF THIS TIME. WILL NEED ADDITIONAL SNF REFERRALS. Addendum: 02/09/18 at 1657 by GENOVEVA GONSALES CM Amended: Links added.
--- NOTE | 2018-02-09 18:19 | NUR ---
RN NOTES Patient remained stable all throughout the shift. Seen by wound care nurse with new wound care recommendations, MD was made aware and agreed. Wound acre done as ordered. No new order noted today. Repositioned every 2 hours and as needed. Kept safe and comfortable. No new skin conditions identified. Needs attended. Will endorse to retail shift leader for continuity of care.
--- NOTE | 2018-02-09 19:33 | RADRPT ---
Vent Rate: 92 bpm RR Interval: 0 msec UT Interval: 148 msec QRS Duration: 144 msec QT Interval: 414 msec QTC Interval: 511 msec P-R-T [place]: 24 - 61 - 61 degrees Normal sinus rhythm Right bundle branch block Abnormal ECG Electronically Signed By: Nomi Lares [id number]
[2018-02-09 20:00] VITALS: BP 104/57; PULSE 97; RESP 18
[2018-02-09] MEDS: ZONISAMIDE 100 MG CAP PO SCH (21:35)
[2018-02-09] MEDS: RISPERIDONE 1 MG TAB PO SCH (21:35)
--- NOTE | 2018-02-09 21:39 | PN ---
Date/Time of Note Date/Time of Note DATE: 02/09/18 TIME: 21:39 Assessment/Plan VTE Prophylaxis Risk score (from Nsg)>0 risk: 5 SCD applied (from Nsg): Yes Pharmacological prophylaxis: heparin Lines/Catheters IV Catheter Type (from Nrs): Saline Lock Assessment/Plan Hospital Course 57 y/o paraplegic M patient presents to the floor with bilateral pressure heel wounds. Patient states they have been present for over two weeks. Patient states he was at another facility and his ex- also helps with the dressing changes and noticed worsening signs of the wound with foul smell. Patient denies f/c/n/v no chest pain or shortness of breath. Assessment/Plan 1) B/l decubitus heel ulcers right stage 2, left stage 1 2) Left decubitus ankle ulcer stage 2 - improving 3) Paraplegia b/l LE 4) Peripheral neuropathy 5) HTN 6) Depression 7) Latent TB Plan: Performed excisional debridement of right heel decubitus wound with scissors, pickups, and scalpel blade. Skin and subcutaneous tissue was excisionally debrided and wounds were irrigated with copious saline solution. Right foot wound cultures showing e. cloacae and enterococcus species. 20cm2 area of debridement performed. Daily wound dressing changes with dakins irrigation and dress with santyl, xeroform, and kerlix. Wound care orders are in place. Emphasized to nurse strict offloading of heels with pillows. X-rays reviewed and did not appreciate sign of osteomyelitis. Continue with IV abx as per recommendations. Non-invasive studies ordered: No focal hemodynamically significant stenosis in either lower extremity. Monitor while in house. Medical decisions, treatment and plan coordinated with Dr. Courtney. Subjective 24 Hr Interval Summary Free Text/Dictation No acute events overnight. Exam/Review of Systems Vital Signs Vitals Vital Signs Date Temp Pulse Resp B/P (MAP) Pulse Ox O2 O2 Flow FiO2 Time Delivery Rate 02/09/18 98.2 97 18 104/57 93 20:00 (73) 02/09/18 Room Air 02:00 Intake and Output 02/08/18 02/08/18 02/09/18 1515:00 23:00 07:00 IntakeIntake Total 1500 ml 320 ml OutputOutput Total 800 ml 900 ml BalanceBalance 700 ml -580 ml Exam Palpable pedal pulses 2+ pitting edema Right foot full thickness ulcer with fibro granular wound bed and adipose tissue appreciated, no probing to bone, no purulence noted, wound margins measures 4 x 5 x 0.3cm. No proximal streaking. Left heel ulcer with signs of epithelialization and some areas of desquamation Left lateral malleolus with 1.0 x 0.8 x 0.3cm fibro granular wound base which does not probe to bone, no proximal streaking, no purulence. Absent muscle strength to the lower extremity Absent protective sensations to the bilateral lower extremities. Medications Medications Current Medications IV Flush (NS 3 ml) 3 ml PER PROTOCOL IV ; Start 01/25/18 at 15:30 Ondansetron HCl (Zofran Inj) 4 mg Q6H PRN IV NAUSEA AND/OR VOMITING; Start 01/25/18 at 15:30 Acetaminophen (Tylenol Tab) 650 mg Q6H PRN PO PAIN LEVEL 1-3 OR FEVER; Start 01/25/18 at 15:30 Acetaminophen/ Hydrocodone Bitart ([place] (5/325)) 1 tab Q6H PRN PO MODERATE PAIN LEVEL 4-6 Last administered on 02/09/18 18:25; Admin Dose 1 TAB; Start 01/25/18 at 15:30 Morphine Sulfate (morphine) 2 mg Q4H PRN IV SEVERE PAIN LEVEL 7-10 Last admi nistered on 02/09/18 15:41; Admin Dose 2 MG; Start 01/25/18 at 15:30 Allopurinol (Zyloprim) 100 mg DAILY PO Last administered on 02/09/18 09:40; Admin Dose 100 MG; Start 01/26/18 at 09:00 Baclofen (Lioresal) 10 mg TID PO Last administered on 02/09/18 21:35; Admin Dose 10 MG; Start 01/25/18 at 21:00 Carvedilol (Coreg) 12.5 mg BID PO Last administered on 02/08/18 21:14; Admin Dose 12.5 MG; Start 01/25/18 at 21:00 Duloxetine HCl (Cymbalta) 30 mg DAILY PO Last administered on 02/09/18 09:39; Admin Dose 30 MG; Start 01/26/18 at 09:00 Famotidine (Pepcid) 20 mg BID PO Last administered on 02/09/18 21:35; Admin Dose 20 MG; Start 01/25/18 at 21:00 Folic Acid (Folic Acid) 1 mg DAILY PO Last administered on 02/09/18 09:40; Admin Dose 1 MG; Start 01/26/18 at 09:00 Gabapentin (Neurontin) 100 mg BID PO Last administered on 02/09/18 21:37; Admin Dose 100 MG; Start 01/25/18 at 21:00 Isoniazid (Isoniazid) 300 mg DAILY PO Last administered on 02/09/18 09:41; Admin Dose 300 MG; Start 01/26/18 at 09:00 Magnesium Oxide (Mag-Ox 400) 400 mg BID PO Last administered on 02/09/18 21:37; Admin Dose 400 MG; Start 01/25/18 at 21:00 Nystatin 1 applic BID TOP Last administered on 02/09/18 21:38; Admin Dose 1 APPLIC; Start 01/25/18 at 21:00 Pyridoxine HCl (Vitamin B6) 50 mg DAILY PO Last administered on 02/09/18 09:40; Admin Dose 50 MG; Start 01/26/18 at 09:00 Rifampin (Rifampin) 600 mg DAILY PO Last administered on 02/09/18 09:40; Admin Dose 600 MG; Start 01/26/18 at 09:00 Risperidone (Risperdal) 1 mg QHS PO Last administered on 02/09/18 21:35; Admin Dose 1 MG; Start 01/25/18 at 21:00 Zonisamide (Zonegran) 300 mg QHS PO Last administered on 02/09/18 21:35; Admin Dose 300 MG; Start 01/25/18 at 21:00 Eye Lubricant (Artificial Tears Oph) 1 drop Q8 BOTH EYES Last administered on 02/09/18 21:35; Admin Dose 1 DROP; Start 01/25/18 at 22:00 Miscellaneous Information (Pending [facility] Order For Wound Care) This patient woody... PRN PRN XX wound; Start 01/25/18 at 16:30 Vitamin A/Vitamin D (Vitamin A & D Oint) 1 applic BID TOP Last administered on 02/09/18 21:35; Admin Dose 1 APPLIC; Start 01/26/18 at 21:00 Docusate Sodium/ Ferrous Fumarate (Sangita-Sequels) 1 tab BID PO Last administered on 02/09/18 21:35; Admin Dose 1 TAB; Start 01/27/18 at 21:00 Docusate Sodium (Colace) 200 mg BID PO Last administered on 02/09/18 09:40; Admin Dose 200 MG; Start 01/27/18 at 21:00 Enoxaparin Sodium (Lovenox) 40 mg DAILY SC Last administered on 02/09/18 09:32; Admin Dose 40 MG; Start 01/28/18 at 09:00 Sodium Hypochlorite (Dakin'S (Dilute )) 1 applic DAILY IRR Last administered on 02/09/18 10:09; Admin Dose 1 APPLIC; Start 01/27/18 at 18:30 Collagenase (Santyl) 1 applic DAILY TOP Last administered on 02/09/18 09:39; Admin Dose 1 APPLIC; Start 01/27/18 at 17:30 Hydrocortisone (Hydrocortisone 1% Cr) 1 applic BID TOP Last administered on 02/09/18at 21:38; Admin Dose 1 APPLIC; Start 01/27/18 at 21:19 Levofloxacin (Levaquin) 500 mg DAILY@06 PO Last administered on 02/09/18 05:40; Admin Dose 500 MG; Start 02/02/18 at 14:00; Stop 02/12/18 at 13:59 Collagenase (Santyl) 1 applic DAILY TOP Last administered on 02/09/18 09:39; Admin Dose 1 APPLIC; Start 02/04/18 at 09:00 Nitroglycerin (Nitroglycerin (Sl Tab) 0.4 Mg) 1 tab Q5M PRN SL ANGINA; Start 02/05/18 at 07:00 Results Result Diagram: 02/08/1862302/08/18623 LUKE BONILLA DPM Feb 09, 2018 21:39
--- NOTE | 2018-02-09 22:00 | NUR ---
S/p debridement of right heel wound with dr lee. pt tolerated procedure well. pain medication given afterwards. due meds agiven as well. will cont to monitor.
[2018-02-10] MEDS: morphine 2 MG INJ IV PRN ×3 (01:48→19:49)
[2018-02-10 02:00] VITALS: BP 110/62; PULSE 92; RESP 18
[2018-02-10] MEDS: ARTIFICIAL TEARS 15 ML OPH BOTH EYES SCH ×3 (05:22→22:00)
[2018-02-10] MEDS: LEVOFLOXACIN 500 MG TAB PO SCH (05:22)
--- NOTE | 2018-02-10 06:30 | NUR ---
no acute changes. afebrile with vss. wound care done as ordered. verified with dr lee last night ifm okay to do wound acre of the right heel today at 0500 and he said its okay. pt tolerated well. repositoned q2 and kept skin clean and dry. will endorse to next shift.
[2018-02-10 07:49] VITALS: BP 117/72; PULSE 80; RESP 18
[2018-02-10] MEDS: ENOXAPARIN 40 MG/0.4 ML SYG SC SCH (09:31)
[2018-02-10] MEDS: PYRIDOXINE 50 MG TAB PO SCH (09:32)
[2018-02-10] MEDS: RIFAMPIN 300 MG CAP PO SCH (09:32)
[2018-02-10] MEDS: DULOXETINE 30 MG CAP DR PO SCH (09:33)
[2018-02-10] MEDS: FOLIC ACID 1 MG TAB PO SCH (09:33)
[2018-02-10] MEDS: FERROUS FUMARATE (SR) TAB PO SCH ×2 (09:33→21:57)
[2018-02-10] MEDS: DOCUSATE SODIUM 100 MG CAP PO SCH ×2 (09:33→21:56)
[2018-02-10] MEDS: ISONIAZID 300 MG TAB PO SCH (09:33)
[2018-02-10] MEDS: BACLOFEN 10 MG TAB PO SCH ×3 (09:33→21:56)
[2018-02-10] MEDS: FAMOTIDINE 20 MG TAB PO SCH ×2 (09:33→21:56)
[2018-02-10] MEDS: MAGNESIUM OXIDE 400 MG TAB PO SCH ×2 (09:34→21:58)
[2018-02-10] MEDS: ALLOPURINOL 100 MG TAB PO SCH (09:34)
[2018-02-10] MEDS: GABAPENTIN 100 MG CAP PO SCH ×2 (09:34→21:56)
[2018-02-10] MEDS: BALSAM PERU/CASTOR OIL 60 GM TUBE TOP SCH (09:42)
[2018-02-10] MEDS: VITAMIN A & D 5 GM OINT PACKET TOP SCH ×2 (09:42→21:59)
[2018-02-10] MEDS: NYSTATIN 15 GM POWDER BTL TOP SCH ×2 (09:43→21:59)
[2018-02-10] MEDS: HYDROCORTISONE 1% 28 GM CR TOP SCH ×2 (09:44→21:59)
--- NOTE | 2018-02-10 09:45 | NUR ---
OT NOTE S: Pt is cleared per RN MONTSE. Pt agreeable to session, states 8/10 pain in back but just had morphine prior. O: Pt found supine with HOB elevated. Pt required max A x2 for supine to sit transfer. Initial min A for balance improving to CGA with vc. Pt completed balance tasks side to side with CGA, backwards and forwards with SBA, vc only and 10x each. Pt required CGA for punching exercise for balance and movement of LUE 10x each. Pt completed alternating reaching activity with 2 LOB requiring min/mod to return to upright. Pt returned to supine with max A x2, tolerated PROM of L shoulder to dec rigidity/inc ROM. LEft with PT, all needs within reach, bed alarm on. A: Fair tolerance, inc sitting tolerance/balance. P: Continue POC.
[2018-02-10] MEDS: COLLAGENASE 5 GM (UD JAR) TOP SCH ×2 (09:48)
[2018-02-10] MEDS: SODIUM HYPOCHLORITE (1/40) 1 APPLIC BTL IRR SCH (09:49)
--- NOTE | 2018-02-10 10:00 | NUR ---
PT NOTE [facility] Patient: Papo Wynne : 1960 Age/Sex: 57/M Unit#: [id number] Room/Bed: 2265/A User: Summer Milner PTA Date: 02/10/18 09:35 Type: PT Technical Record Therapy day number 3 Subjective Current complaint of pain Pain Scale NUMERIC Pain Intensity 3 (0-10) Patient Stated Goal for Pain Relief 0 (0-10) Pain Level Comment premedicated Exercise Assessment Label Bilat Lower Extremity Exercise Type Passive ROM Additional Exercise Comments seated: Blanca, Everton whitt; supine: heel slides, SLR, hip abd/add Exercise Start Time 09:51 Exercise End Time 10:00 Total Exercise Time 9 min (8-127) Transfer Training Start Time 09:35 Supine to Sit Maximum Assist Bed Mobility Sit to Supine Maximum Assist Additional Mobility Comments 2PA; lat/ant/post weight shifting Transfer Training End Time 09:50 Total Transfer Training Time 15 min (8-127) Patient uses wheelchair Yes Static Sitting Balance Fair Dynamic Sitting Balance Fair Equipment Present A pump Benavidez Catheter Additional Equipment Present pressure relief boots bilaterally Post Treatment Pain Intensity 3 0-10 Variance Documentation see comment Total Treament Time 24 min (8-127) Total Minutes 24 Total Units 2 PT Technical Record Comment PT NOTE S: Min c/o pain d/t just receiving morphine. Agreed to skilled PT. Cleared and premedicated by NEELA WILLARD. O: Received awake in semi-whitmore with RN at bedside. VCs on sequencing during transfer. Performed seated B LE PROM followed by static/dynamic sitting balance activities including lat/ant/post weight shifting. Returned back to supine d/t fatigue. Performed additional B LE PROM therex. Left in semi-whitmore, call light and all necessities within reach, B feet elevated. A: Pt juan josé tx fairly. 2PA for safety and mobility. Required CGA/SBA for sitting balance training and min/mod A for recovery when LOB occured. P: Continue with POC.
--- NOTE | 2018-02-10 10:55 | NUR ---
01/10/18 EMAIL FROM JULIANA NGUYỄN RE PATIENT REQUIRING CLEARANCE FROM [facility] PRIOR TO DC. REQUIRES 3 NEGATIVE AF[employer] SMEAR.NOTIFIED ATTENDING SUKUMAR BHAKTA. NO ADDRESS TO DC PATIENT TO YET. RECEIVED AND PRINTED [facility] FORM. Addendum: 02/10/18 at 1058 by GENOVEVA GONSALES Amended: Links added.
--- NOTE | 2018-02-10 12:36 | PN ---
Date/Time of Note Date/Time of Note DATE: 02/10/18 TIME: 12:35 Assessment/Plan VTE Prophylaxis Risk score (from Nsg)>0 risk: 6 SCD applied (from Nsg): Yes Pharmacological prophylaxis: LMWH Lines/Catheters IV Catheter Type (from Nrsg): Saline Lock Assessment/Plan Hospital Course SUBJECTIVE: No acute overnight episodes. OBJECTIVE: Vital signs-see below PHYSICAL EXAM: Constitutional: Bedbound male, not in acute distress. Psych: nl mood/affect, no complaints Head: atraumatic, normocephalic Eyes: nl conjunctiva, nl sclera ENMT: mucosa pink and moist, nl external ears & nose Neck: non-tender, supple Respiratory: clear to auscultation, normal air movement Cardiovascular: nl pulses, regular rate and rhythm Gastrointestinal: non-tender, soft, bowel sounds active in all 4 quadrants. Musculoskeletal/extremities: Paraplegic. Normal pulses,no cyanosis, no edema. Neurological: Alert oriented 3,nl speech, nl strength Skin: Bilateral heel with ulcers, covered with dressing. No oozing noted on dressing. Nl turgor ASSESSMENT/PLAN: Very unfortunate 57-year-old male with a history of paraplegia secondary to spinal cord syndrome 6 months ago, who also resides in a detention, presented to the emergency room with worsening bilateral heel ulcers with foul-smelling drainage 1. Bilateral heel Decub ulcers -status post excisional debridement of bilateral heel decubitus. No evidence of osteomyelitis. -Continue Levaquinx1 more week -Continue wound care per podiatry recommendation with Dakin's irrigation/Xeroform/Kerlix dressing. 2. Paraplegia secondary to spinal disorder and back surgery 6 months ago -Exact nature of disorder and surgery unclear -Continue baclofen 3. Likely latent TB per home meds -Continue isoniazid -F/u infection control recs from [facility] guideline 4. Depression -Continue home Cymbalta 5. Hypertension -Continue Coreg 6. Debility secondary to #2. -Patient resides in a detention. 7. Chronic anemia with mild iron deficiency. -Stable H&H after 1 unit transfusion. -Continue oral iron replacement. Prophylaxis:Lovenox/Pepcid Diet: Regular CODE STATUS: Full code Disposition: Patient is medically stable for discharge to retirement facility with continuation of wound care. Case management to facilitate placement. Patient to follow-up with [facility] wound care clinic in 1 week after discharge. Patient was seen in collaboration with Dr. Awad. Exam/Review of Systems Vital Signs Vitals Vital Signs Date Temp Pulse Resp B/P (MAP) Pulse Ox O2 O2 Flow FiO2 Time Delivery Rate 02/10/18 98.0 80 18 117/72 99 07:49 (87) 02/09/18 Room Air 02:00 Intake and Output 02/09/18 02/09/18 02/10/18 1515:00 23:00 07:00 IntakeIntake Total 1500 ml 900 ml OutputOutput Total 1400 ml 600 ml 700 ml BalanceBalance -1400 ml 900 ml 200 ml Medications Medications Current Medications IV Flush (NS 3 ml) 3 ml PER PROTOCOL IV ; Start 01/25/18 at 15:30 Ondansetron HCl (Zofran Inj) 4 mg Q6H PRN IV NAUSEA AND/OR VOMITING; Start 01/25/18 at 15:30 Acetaminophen (Tylenol Tab) 650 mg Q6H PRN PO PAIN LEVEL 1-3 OR FEVER; Start 01/25/18 at 15:30 Acetaminophen/ Hydrocodone Bitart ([place] (5/325)) 1 tab Q6H PRN PO MODERATE PAIN LEVEL 4-6 Last administered on 02/09/18at 18:25; Admin Dose 1 TAB; Start 01/25/18 at 15:30 Morphine Sulfate (morphine) 2 mg Q4H PRN IV SEVERE PAIN LEVEL 7-10 Last administered on 02/10/18at 09:26; Admin Dose 2 MG; Start 01/25/18 at 15:30 Allopurinol (Zyloprim) 100 mg DAILY PO Last administered on 02/10/18at 09:34; Admin Dose 100 MG; Start 01/26/18 at 09:00 Baclofen (Lioresal) 10 mg TID PO Last administered on 02/10/18 09:33; Admin Dose 10 MG; Start 01/25/18 at 21:00 Carvedilol (Coreg) 12.5 mg BID PO Last administered on 02/08/18at 21:14; Admin Dose 12.5 MG; Start 01/25/18 at 21:00 Duloxetine HCl (Cymbalta) 30 mg DAILY PO Last administered on 02/10/18 09:33; Admin Dose 30 MG; Start 01/26/18 at 09:00 Famotidine (Pepcid) 20 mg BID PO Last administered on 02/10/18 09:33; Admin Dose 20 MG; Start 01/25/18 at 21:00 Folic Acid (Folic Acid) 1 mg DAILY PO Last administered on 02/10/18 09:33; Admin Dose 1 MG; Start 01/26/18 at 09:00 Gabapentin (Neurontin) 100 mg BID PO Last administered on 02/10/18 09:34; Admin Dose 100 MG; Start 01/25/18 at 21:00 Isoniazid (Isoniazid) 300 mg DAILY PO Last administered on 02/10/18 09:33; Admin Dose 300 MG; Start 01/26/18 at 09:00 Magnesium Oxide (Mag-Ox 400) 400 mg BID PO Last administered on 02/10/18 09 :34; Admin Dose 400 MG; Start 01/25/18 at 21:00 Nystatin 1 applic BID TOP Last administered on 02/10/18 09:43; Admin Dose 1 APPLIC; Start 01/25/18 at 21:00 Pyridoxine HCl (Vitamin B6) 50 mg DAILY PO Last administered on 02/10/18 09:32; Admin Dose 50 MG; Start 01/26/18 at 09:00 Rifampin (Rifampin) 600 mg DAILY PO Last administered on 02/10/18 09:32; Admin Dose 600 MG; Start 01/26/18 at 09:00 Risperidone (Risperdal) 1 mg QHS PO Last administered on 02/09/18 21:35; Admin Dose 1 MG; Start 01/25/18 at 21:00 Zonisamide (Zonegran) 300 mg QHS PO Last administered on 02/09/18 21:35; Admin Dose 300 MG; Start 01/25/18 at 21:00 Eye Lubricant (Artificial Tears Oph) 1 drop Q8 BOTH EYES Last administered on 02/10/18 05:22; Admin Dose 1 DROP; Start 01/25/18 at 22:00 [facility] This patient woody... PRN PRN XX wound; Start 01/25/18 at 16:30 Vitamin A/Vitamin D (Vitamin A & D Oint) 1 applic BID TOP Last administered on 02/10/18 09:42; Admin Dose 1 APPLIC; Start 01/26/18 at 21:00 Docusate Sodium/ Ferrous Fumarate (Sangita-Sequels) 1 tab BID PO Last administered on 02/10/18 09:33; Admin Dose 1 TAB; Start 01/27/18 at 21:00 Docusate Sodium (Colace) 200 mg BID PO Last administered on 02/10/18 09:33; Admin Dose 200 MG; Start 01/27/18 at 21:00 Enoxaparin Sodium (Lovenox) 40 mg DAILY SC Last administered on 02/10/18 09:31; Admin Dose 40 MG; Start 01/28/18 at 09:00 Sodium Hypochlorite (Dakin'S (Dilute )) 1 applic DAILY IRR Last administered on 02/10/18 09:49; Admin Dose 1 APPLIC; Start 01/27/18 at 18:30 Collagenase (Santyl) 1 applic DAILY TOP Last administered on 02/10/18at 09:48; Admin Dose 1 APPLIC; Start 01/27/18 at 17:30 Hydrocortisone (Hydrocortisone 1% Cr) 1 applic BID TOP Last administered on 02/10/18at 09:44; Admin Dose 1 APPLIC; Start 01/27/18 at 21:19 Levofloxacin (Levaquin) 500 mg DAILY@06 PO Last administered on 02/10/18at 05:22; Admin Dose 500 MG; Start 02/02/18 at 14:00; Stop 02/12/18 at 13:59 Collagenase (Santyl) 1 applic DAILY TOP Last administered on 02/10/18at 09:48; Admin Dose 1 APPLIC; Start 02/04/18 at 09:00 Nitroglycerin (Nitroglycerin (Sl Tab) 0.4 Mg) 1 tab Q5M PRN SL ANGINA; Start 02/05/18 at 07:00 Results Result Diagram: 02/08/1824 02/08/1824 LIVIA ADAME NP Feb 10, 2018 12:36
[2018-02-10] MEDS: HYDROCODONE/APAP (5/325) TAB PO PRN (12:55)
--- NOTE | 2018-02-10 13:39 | NUR ---
Spoke with Lola at infection control, per Dept of Health, patient has completed treatment for TB and is cleared for transfer to SNF.
[2018-02-10 14:18] VITALS: BP 101/58; PULSE 85; RESP 16
--- NOTE | 2018-02-10 16:45 | NUR ---
DC UPDATE: RECEIVED CLEARANCE FROM [facility] , FAXED REFERRALS TO [facility]ACILITIES WITH THE [facility] CLEARANCE. YADIRA GRAJEDA [facility] FF UP MARISA YBARRA WHO WANTED AN UPDATED WOUND CARE WHICH I FAXED TO [facility] . Addendum: 02/10/18 at 1653 by GENOVEVA GONSALES CM Amended: Links added.
--- NOTE | 2018-02-10 18:49 | NUR ---
RN NOTES. No significant change, vital signs stable. Received a message from infection control and stated that patient is clear to be discharge as ordered by [facility]. Wound care done. No new order noted. Repositioned every 2 hours and as needed. Will continue to monitor.
[2018-02-10 20:19] VITALS: BP 107/63; PULSE 100; RESP 18
[2018-02-10] MEDS: ZONISAMIDE 100 MG CAP PO SCH (21:57)
[2018-02-10] MEDS: RISPERIDONE 1 MG TAB PO SCH (21:58)
[2018-02-11 02:21] VITALS: BP 104/65; PULSE 79; RESP 18
[2018-02-11] MEDS: ARTIFICIAL TEARS 15 ML OPH BOTH EYES SCH ×3 (05:28→20:39)
[2018-02-11] MEDS: LEVOFLOXACIN 500 MG TAB PO SCH (05:28)
[2018-02-11] MEDS: HYDROCODONE/APAP (5/325) TAB PO PRN ×2 (06:07→23:14)
--- NOTE | 2018-02-11 06:41 | NUR ---
Pt alert and oriented. Turned and repositioned. Wound care done per orders, pt tolerated. All needs attended to. No acute changes noted. Bed alarm on, call light within reach.
[2018-02-11 07:50] VITALS: BP 122/74; PULSE 76; RESP 16
[2018-02-11] MEDS: BACLOFEN 10 MG TAB PO SCH ×3 (08:40→20:35)
[2018-02-11] MEDS: DOCUSATE SODIUM 100 MG CAP PO SCH ×2 (08:41→20:39)
[2018-02-11] MEDS: ALLOPURINOL 100 MG TAB PO SCH (08:41)
[2018-02-11] MEDS: RIFAMPIN 300 MG CAP PO SCH (08:41)
[2018-02-11] MEDS: ENOXAPARIN 40 MG/0.4 ML SYG SC SCH (08:41)
[2018-02-11] MEDS: PYRIDOXINE 50 MG TAB PO SCH (08:42)
[2018-02-11] MEDS: GABAPENTIN 100 MG CAP PO SCH ×2 (08:42→20:35)
[2018-02-11] MEDS: FOLIC ACID 1 MG TAB PO SCH (08:42)
[2018-02-11] MEDS: MAGNESIUM OXIDE 400 MG TAB PO SCH ×2 (08:42→20:34)
[2018-02-11] MEDS: ISONIAZID 300 MG TAB PO SCH (08:42)
[2018-02-11] MEDS: DULOXETINE 30 MG CAP DR PO SCH (08:42)
[2018-02-11] MEDS: NYSTATIN 15 GM POWDER BTL TOP SCH ×2 (08:43→20:43)
[2018-02-11] MEDS: SODIUM HYPOCHLORITE (1/40) 1 APPLIC BTL IRR SCH (08:43)
[2018-02-11] MEDS: BALSAM PERU/CASTOR OIL 60 GM TUBE TOP SCH (08:44)
[2018-02-11] MEDS: HYDROCORTISONE 1% 28 GM CR TOP SCH ×2 (08:44→20:43)
[2018-02-11] MEDS: COLLAGENASE 5 GM (UD JAR) TOP SCH ×2 (08:44)
[2018-02-11] MEDS: VITAMIN A & D 5 GM OINT PACKET TOP SCH ×2 (08:44→20:54)
[2018-02-11] MEDS: FERROUS FUMARATE (SR) TAB PO SCH ×2 (08:47→20:35)
[2018-02-11] MEDS: FAMOTIDINE 20 MG TAB PO SCH ×2 (08:49→20:35)
--- NOTE | 2018-02-11 09:00 | NUR ---
CONTINUING EDUCATION INSTRUCTOR MARY : Tendr [phone]; PATIENT UNDER ADMINISTRATIVE DAYS SINCE 02/04/18. Addendum: 02/11/18 at 0901 by GENOVEVA GONSALES CM Amended: Links added.
[2018-02-11] MEDS: morphine 2 MG INJ IV PRN ×2 (09:05→13:44)
--- NOTE | 2018-02-11 10:45 | NUR ---
OT NOTE S: Pt agreeable to session, complaining of min/mod pain at this moment all over. O: Pt found supine, propped on R side. Pt completed BUE therex for shoulder punches, bicep curls, and intetrnal/external rotation. Completed 2 sets of 10 with no additional weight, 1x10 with min resistive band. Pt required cueing for quality of movement. Pt required repositioning, max A to reposition legs to comfort and dec risk of skin breakdown. Pt left with all needs within reach. A: Fair tolerance. P: Continue POC.
--- NOTE | 2018-02-11 12:10 | PN ---
Date/Time of Note Date/Time of Note DATE: 02/11/18 TIME: 12:09 Assessment/Plan VTE Prophylaxis Risk score (from Nsg)>0 risk: 7 SCD applied (from Nsg): Yes Pharmacological prophylaxis: LMWH Lines/Catheters IV Catheter Type (from Nrsg): Saline Lock Urinary Cath still in place: Yes Reason Cath still needed: pres ulcer contaminated by urine Assessment/Plan Hospital Course SUBJECTIVE: No acute overnight episodes. OBJECTIVE: Vital signs-see below PHYSICAL EXAM: Constitutional: Bedbound male, not in acute distress. Psych: nl mood/affect, no complaints Head: atraumatic, normocephalic Eyes: nl conjunctiva, nl sclera ENMT: mucosa pink and moist, nl external ears & nose Neck: non-tender, supple Respiratory: clear to auscultation, normal air movement Cardiovascular: nl pulses, regular rate and rhythm Gastrointestinal: non-tender, soft, bowel sounds active in all 4 quadrants. Musculoskeletal/extremities: Paraplegic. Normal pulses,no cyanosis, no edema. Neurological: Alert oriented 3,nl speech, nl strength Skin: Bilateral heel with ulcers, covered with dressing. No oozing noted on dressing. Nl turgor ASSESSMENT/PLAN: Very unfortunate 57-year-old male with a history of paraplegia secondary to spinal cord syndrome 6 months ago, who also resides in a fci, presented to the emergency room with worsening bilateral heel ulcers with foul-smelling drainage 1. Bilateral heel Decub ulcers -status post excisional debridement of bilateral heel decubitus. No evidence of osteomyelitis. -Continue Levaquinx1 more week -Continue wound care per podiatry recommendation with Dakin's irrigation/Xeroform/Kerlix dressing. 2. Paraplegia secondary to spinal disorder and back surgery 6 months ago -Exact nature of disorder and surgery unclear -Continue baclofen 3. Likely latent TB per home meds -Continue isoniazid -No further workup needed per Department of Health. 4. Depression -Continue home Cymbalta 5. Hypertension -Continue Coreg 6. Debility secondary to #2. -Patient resides in a fci. 7. Chronic anemia with mild iron deficiency. -Stable H&H after 1 unit transfusion. -Continue oral iron replacement. Prophylaxis:Lovenox/Pepcid Diet: Regular CODE STATUS: Full code Disposition: Patient is medically stable for discharge to care home facility with continuation of wound care. Case management to facilitate p lacement. Patient to follow-up with [facility] wound care clinic in 1 week after discharge. Patient was seen in collaboration with Dr. Awad. Exam/Review of Systems Vital Signs Vitals Vital Signs Date Temp Pulse Resp B/P (MAP) Pulse Ox O2 O2 Flow FiO2 Time Delivery Rate 02/11/18 97.8 76 16 122/74 99 Room Air 07:50 (90) Intake and Output 02/10/18 02/10/18 02/11/18 1414:59 22:59 06:59 IntakeIntake Total 1400 ml OutputOutput Total 600 ml 1000 ml BalanceBalance 800 ml -1000 ml Medications Medications Current Medications IV Flush (NS 3 ml) 3 ml PER PROTOCOL IV ; Start 01/25/18 at 15:30 Ondansetron HCl (Zofran Inj) 4 mg Q6H PRN IV NAUSEA AND/OR VOMITING; Start 01/25/18 at 15:30 Acetaminophen (Tylenol Tab) 650 mg Q6H PRN PO PAIN LEVEL 1-3 OR FEVER; Start 01/25/18 at 15:30 Acetaminophen/ Hydrocodone Bitart ([place] (5/325)) 1 tab Q6H PRN PO MODERATE PAIN LEVEL 4-6 Last administered on 02/11/18at 06:07; Admin Dose 1 TAB; Start 01/25/18 at 15:30 Morphine Sulfate (morphine) 2 mg Q4H PRN IV SEVERE PAIN LEVEL 7-10 Last administered on 02/11/18at 09:05; Admin Dose 2 MG; Start 01/25/18 at 15:30 Allopurinol (Zyloprim) 100 mg DAILY PO Last administered on 02/11/18at 08:41; Admin Dose 100 MG; Start 01/26/18 at 09:00 Baclofen (Lioresal) 10 mg TID PO Last administered on 02/11/18 08:40; Admin Dose 10 MG; Start 01/25/18 at 21:00 Carvedilol (Coreg) 12.5 mg BID PO Last administered on 02/11/18 08:43; Admin Dose 12.5 MG; Start 01/25/18 at 21:00 Duloxetine HCl (Cymbalta) 30 mg DAILY PO Last administered on 02/11/18 08:42; Admin Dose 30 MG; Start 01/26/18 at 09:00 Famotidine (Pepcid) 20 mg BID PO Last administered on 02/11/18 08:49; Admin Dose 20 MG; Start 01/25/18 at 21:00 Folic Acid (Folic Acid) 1 mg DAILY PO Last administered on 02/11/18 08:42; Admin Dose 1 MG; Start 01/26/18 at 09:00 Gabapentin (Neurontin) 100 mg BID PO Last administered on 02/11/18 08:42; Admin Dose 100 MG; Start 01/25/18 at 21:00 Isoniazid (Isoniazid) 300 mg DAILY PO Last administered on 02/11/18 08:42; Admin Dose 300 MG; Start 01/26/18 at 09:00 Magnesium Oxide (Mag-Ox 400) 400 mg BID PO Last administered on 02/11/18 08: 42; Admin Dose 400 MG; Start 01/25/18 at 21:00 Nystatin 1 applic BID TOP Last administered on 02/10/18 21:59; Admin Dose 1 APPLIC; Start 01/25/18 at 21:00 Pyridoxine HCl (Vitamin B6) 50 mg DAILY PO Last administered on 02/11/18 08:42; Admin Dose 50 MG; Start 01/26/18 at 09:00 Rifampin (Rifampin) 600 mg DAILY PO Last administered on 02/11/18 08:41; Admin Dose 600 MG; Start 01/26/18 at 09:00 Risperidone (Risperdal) 1 mg QHS PO Last administered on 02/10/18 21:58; Admin Dose 1 MG; Start 01/25/18 at 21:00 Zonisamide (Zonegran) 300 mg QHS PO Last administered on 02/10/18 21:57; Admin Dose 300 MG; Start 01/25/18 at 21:00 Eye Lubricant (Artificial Tears Oph) 1 drop Q8 BOTH EYES Last administered on 02/11/18 05:28; Admin Dose 1 DROP; Start 01/25/18 at 22:00 Miscellaneous [facility] This patient woody... PRN PRN XX wound; Start 01/25/18 at 16:30 Vitamin A/Vitamin D (Vitamin A & D Oint) 1 applic BID TOP Last administered on 02/10/18 21:59; Admin Dose 1 APPLIC; Start 01/26/18 at 21:00 Docusate Sodium/ Ferrous Fumarate (Sangita-Sequels) 1 tab BID PO Last administered on 02/11/18at 08:47; Admin Dose 1 TAB; Start 01/27/18 at 21:00 Docusate Sodium (Colace) 200 mg BID PO Last administered on 02/11/18 08:41; Admin Dose 200 MG; Start 01/27/18 at 21:00 Enoxaparin Sodium (Lovenox) 40 mg DAILY SC Last administered on 02/11/18 08:41; Admin Dose 40 MG; Start 01/28/18 at 09:00 Sodium Hypochlorite (Dakin'S (Dilute )) 1 applic DAILY IRR Last administered on 02/10/18 09:49; Admin Dose 1 APPLIC; Start 01/27/18 at 18:30 Collagenase (Santyl) 1 applic DAILY TOP Last administered on 02/10/18 09:48; Admin Dose 1 APPLIC; Start 01/27/18 at 17:30 Hydrocortisone (Hydrocortisone 1% Cr) 1 applic BID TOP Last administered on 02/10/18at 21:59; Admin Dose 1 APPLIC; Start 01/27/18 at 21:19 Levofloxacin (Levaquin) 500 mg DAILY@06 PO Last administered on 02/11/18at 05:28; Admin Dose 500 MG; Start 02/02/18 at 14:00; Stop 02/12/18 at 13:59 Collagenase (Santyl) 1 applic DAILY TOP Last administered on 02/10/18at 09:48; Admin Dose 1 APPLIC; Start 02/04/18 at 09:00 Nitroglycerin (Nitroglycerin (Sl Tab) 0.4 Mg) 1 tab Q5M PRN SL ANGINA; Start 02/05/18 at 07:00 Results Result Diagram: 02/08/1862302/08/18623 LIVIA ADAME NP Feb 11, 2018 12:10
--- NOTE | 2018-02-11 12:30 | NUR ---
CM NOTE: SNF REFERRAL Inquiry for admission sent to [facility] (P:[phone], F:[phone]), [facility] (P: [phone], F:[phone]), [facility] ([phone], F:[phone]), [facility] ([phone], F:[phone]), [facility] (P:[phone], F:[phone]). Confirmation received. Pierre Hopkins RN CM [id number] Addendum: 02/12/18 at 1403 by CHIP HOPKINS CM Received calls from above mentioned SNFs, no accepting SNF at this time.
--- NOTE | 2018-02-11 17:50 | NUR ---
Patient alert and oriented x4. No signs of distress or sob. Denies pain. Patient turned frequently every 2 hours. Wound dry and intact. Patient remained stable all throughout the shift. Kept safe and comfortable. No new skin conditions identified. Will endorse to the night stocker nurse.
[2018-02-11 19:30] VITALS: BP 123/68; PULSE 78; RESP 18
[2018-02-11] MEDS: morphine LIQ (10 MG/5 ML) CUP PO PRN (20:33)
[2018-02-11] MEDS: RISPERIDONE 1 MG TAB PO SCH (20:35)
[2018-02-11] MEDS: ZONISAMIDE 100 MG CAP PO SCH (20:35)
[2018-02-12 02:20] VITALS: BP 108/65; PULSE 84; RESP 18
[2018-02-12] MEDS: LEVOFLOXACIN 500 MG TAB PO SCH (05:53)
[2018-02-12] MEDS: ARTIFICIAL TEARS 15 ML OPH BOTH EYES SCH ×3 (05:54→21:15)
[2018-02-12 07:45] VITALS: BP 114/62; PULSE 94; RESP 18
[2018-02-12] MEDS: ISONIAZID 300 MG TAB PO SCH (08:28)
[2018-02-12] MEDS: FAMOTIDINE 20 MG TAB PO SCH ×2 (08:28→20:14)
[2018-02-12] MEDS: DULOXETINE 30 MG CAP DR PO SCH (08:28)
[2018-02-12] MEDS: GABAPENTIN 100 MG CAP PO SCH ×2 (08:28→20:14)
[2018-02-12] MEDS: morphine LIQ (10 MG/5 ML) CUP PO PRN ×2 (08:28→21:17)
[2018-02-12] MEDS: PYRIDOXINE 50 MG TAB PO SCH (08:28)
[2018-02-12] MEDS: FOLIC ACID 1 MG TAB PO SCH (08:29)
[2018-02-12] MEDS: ALLOPURINOL 100 MG TAB PO SCH (08:29)
[2018-02-12] MEDS: FERROUS FUMARATE (SR) TAB PO SCH ×2 (08:29→20:14)
[2018-02-12] MEDS: BACLOFEN 10 MG TAB PO SCH ×3 (08:29→20:14)
[2018-02-12] MEDS: MAGNESIUM OXIDE 400 MG TAB PO SCH ×2 (08:29→20:14)
[2018-02-12] MEDS: DOCUSATE SODIUM 100 MG CAP PO SCH ×2 (08:29→20:14)
[2018-02-12] MEDS: RIFAMPIN 300 MG CAP PO SCH (08:29)
[2018-02-12] MEDS: ENOXAPARIN 40 MG/0.4 ML SYG SC SCH (08:30)
[2018-02-12] MEDS: VITAMIN A & D 5 GM OINT PACKET TOP SCH ×2 (08:31→20:15)
[2018-02-12] MEDS: BALSAM PERU/CASTOR OIL 60 GM TUBE TOP SCH (08:31)
[2018-02-12] MEDS: COLLAGENASE 5 GM (UD JAR) TOP SCH ×2 (08:32)
[2018-02-12] MEDS: HYDROCORTISONE 1% 28 GM CR TOP SCH ×2 (08:32→20:15)
[2018-02-12] MEDS: SODIUM HYPOCHLORITE (1/40) 1 APPLIC BTL IRR SCH (08:32)
[2018-02-12] MEDS: NYSTATIN 15 GM POWDER BTL TOP SCH ×2 (08:32→20:15)
--- NOTE | 2018-02-12 11:31 | PN ---
Date/Time of Note Date/Time of Note DATE: 02/12/18 TIME: 11:30 Assessment/Plan VTE Prophylaxis Risk score (from Nsg)>0 risk: 5 SCD applied (from Nsg): Yes Pharmacological prophylaxis: LMWH Lines/Catheters IV Catheter Type (from Nrsg): Saline Lock Urinary Cath still in place: Yes Reason Cath still needed: pres ulcer contaminated by urine Assessment/Plan Hospital Course SUBJECTIVE: No acute overnight episodes. OBJECTIVE: Vital signs-see below PHYSICAL EXAM: Constitutional: Bedbound male, not in acute distress. Psych: nl mood/affect, no complaints Head: atraumatic, normocephalic Eyes: nl conjunctiva, nl sclera ENMT: mucosa pink and moist, nl external ears & nose Neck: non-tender, supple Respiratory: clear to auscultation, normal air movement Cardiovascular: nl pulses, regular rate and rhythm Gastrointestinal: non-tender, soft, bowel sounds active in all 4 quadrants. Musculoskeletal/extremities: Paraplegic. Normal pulses,no cyanosis, no edema. Neurological: Alert oriented 3,nl speech, nl strength Skin: Bilateral heel with ulcers, covered with dressing. No oozing noted on dressing. Nl turgor ASSESSMENT/PLAN: Very unfortunate 57-year-old male with a history of paraplegia secondary to spinal cord syndrome 6 months ago, who also resides in a [facility], presented to the emergency room with worsening bilateral heel ulcers with foul-smelling drainage 1. Bilateral heel Decub ulcers -status post excisional debridement of bilateral heel decubitus. No evidence of osteomyelitis. -Continue Levaquinx1 more week -Continue wound care per podiatry recommendation with Dakin's irrigation/Xeroform/Kerlix dressing. 2. Paraplegia secondary to spinal disorder and back surgery 6 months ago -Exact nature of disorder and surgery unclear -Continue baclofen 3. Likely latent TB per home meds -Continue isoniazid -No further workup needed per Department of Health. 4. Depression -Continue home Cymbalta 5. Hypertension -Continue Coreg 6. Debility secondary to #2. -Patient resides in a [facility]. 7. Chronic anemia with mild iron deficiency. -Stable H&H after 1 unit transfusion. -Continue oral iron replacement. 8. Unstageable pressure ulcers, sacral coccyx -Continue wound care and will consult surgery. Prophylaxis:Lovenox/Pepcid Diet: Regular CODE STATUS: Full code Disposition: Follow-up surgery recommendation on unstageable pressure ulcers. Patient also needs a longterm facility placement. Patient was seen in collaboration with Dr. Awad. Exam/Review of Systems Vital Signs Vitals Vital Signs Date Temp Pulse Resp B/P (MAP) Pulse Ox O2 O2 Flow FiO2 Time Delivery Rate 02/12/18 97.8 94 18 114/62 96 07:45 (79) 02/11/18 Room Air 07:50 Intake and Output 02/11/18 02/11/18 02/12/18 1515:00 23:00 07:00 IntakeIntake Total 450 ml 400 ml 650 ml OutputOutput Total 600 ml 500 ml 2050 ml BalanceBalance -150 ml -100 ml -1400 ml Medications Medications Current Medications IV Flush (NS 3 ml) 3 ml PER PROTOCOL IV ; Start 01/25/18 at 15:30 Ondansetron HCl (Zofran Inj) 4 mg Q6H PRN IV NAUSEA AND/OR VOMITING; Start 01/25/18 at 15:30 Acetaminophen (Tylenol Tab) 650 mg Q6H PRN PO PAIN LEVEL 1-3 OR FEVER; Start 01/25/18 at 15:30 Acetaminophen/ Hydrocodone Bitart ([place] (5/325)) 1 tab Q6H PRN PO MODERATE PAIN LEVEL 4-6 Last administered on 02/11/18at 23:14; Admin Dose 1 TAB; Start 01/25/18 at 15:30 Allopurinol (Zyloprim) 100 mg DAILY PO Last administered on 02/12/18 08:29; Admin Dose 100 MG; Start 01/26/18 at 09:00 Baclofen (Lioresal) 10 mg TID PO Last administered on 02/12/18 08:29; Admin Dose 10 MG; Start 01/25/18 at 21:00 Carvedilol (Coreg) 12.5 mg BID PO Last administered on 02/12/18 08:28; Admin Dose 12.5 MG; Start 01/25/18 at 21:00 Duloxetine HCl (Cymbalta) 30 mg DAILY PO Last administered on 02/12/18 08:28; Admin Dose 30 MG; Start 01/26/18 at 09:00 Famotidine (Pepcid) 20 mg BID PO Last administered on 02/12/18 08:28; Admin Dose 20 MG; Start 01/25/18 at 21:00 Folic Acid (Folic Acid) 1 mg DAILY PO Last administered on 02/12/18 08:29; Admin Dose 1 MG; Start 01/26/18 at 09:00 Gabapentin (Neurontin) 100 mg BID PO Last administered on 02/12/18 08:28; Admin Dose 100 MG; Start 01/25/18 at 21:00 Isoniazid (Isoniazid) 300 mg DAILY PO Last administered on 02/12/18 08:28; Admin Dose 300 MG; Start 01/26/18 at 09:00 Magnesium Oxide (Mag-Ox 400) 400 mg BID PO Last administered on 02/12/18 08:29; Admin Dose 400 MG; Start 01/25/18 at 21:00 Nystatin 1 applic BID TOP Last administered on 02/11/18 20:43; Admin Dose 1 APPLIC; Start 01/25/18 at 21:00 Pyridoxine HCl (Vitamin B6) 50 mg DAILY PO Last administered on 02/12/18 08:28; Admin Dose 50 MG; Start 01/26/18 at 09:00 Rifampin (Rifampin) 600 mg DAILY PO Last administered on 02/12/18 08:29; Admin Dose 600 MG; Start 01/26/18 at 09:00 Risperidone (Risperdal) 1 mg QHS PO Last administered on 02/11/18 20:35; Admin Dose 1 MG; Start 01/25/18 at 21:00 Zonisamide (Zonegran) 300 mg QHS PO Last administered on 02/11/18 20:35; Ad min Dose 300 MG; Start 01/25/18 at 21:00 Eye Lubricant (Artificial Tears Oph) 1 drop Q8 BOTH EYES Last administered on 02/12/18 05:54; Admin Dose 1 DROP; Start 01/25/18 at 22:00 Miscellaneous Information (Pending [facility] Order For Wound Care) This patient woody... PRN PRN XX wound; Start 01/25/18 at 16:30 Vitamin A/Vitamin D (Vitamin A & D Oint) 1 applic BID TOP Last administered on 02/11/18 20:54; Admin Dose 1 APPLIC; Start 01/26/18 at 21:00 Docusate Sodium/ Ferrous Fumarate (Sangita-Sequels) 1 tab BID PO Last administered on 02/12/18 08:29; Admin Dose 1 TAB; Start 01/27/18 at 21:00 Docusate Sodium (Colace) 200 mg BID PO Last administered on 02/12/18 08:29; Admin Dose 200 MG; Start 01/27/18 at 21:00 Enoxaparin Sodium (Lovenox) 40 mg DAILY SC Last administered on 02/12/18at 0 8:30; Admin Dose 40 MG; Start 01/28/18 at 09:00 Sodium Hypochlorite (Dakin'S (Dilute 40)) 1 applic DAILY IRR Last administered on 02/10/18 09:49; Admin Dose 1 APPLIC; Start 01/27/18 at 18:30 Collagenase (Santyl) 1 applic DAILY TOP Last administered on 02/10/18at 09:48; Admin Dose 1 APPLIC; Start 01/27/18 at 17:30 Hydrocortisone (Hydrocortisone 1% Cr) 1 applic BID TOP Last administered on 02/11/18at 20:43; Admin Dose 1 APPLIC; Start 01/27/18 at 21:19 Levofloxacin (Levaquin) 500 mg DAILY@06 PO Last administered on 02/12/18at 05:53; Admin Dose 500 MG; Start 02/02/18 at 14:00; Stop 02/12/18 at 13:59 Collagenase (Santyl) 1 applic DAILY TOP Last administered on 02/10/18at 09:48; Admin Dose 1 APPLIC; Start 02/04/18 at 09:00 Nitroglycerin (Nitroglycerin (Sl Tab) 0.4 Mg) 1 tab Q5M PRN SL ANGINA; Start 02/05/18 at 07:00 Morphine Sulfate (morphine) 6 mg Q4H PRN PO SEVERE PAIN LEVEL 7-10 Last administered on 02/12/18at 08:28; Admin Dose 6 MG; Start 02/11/18 at 20:00 Results Result Diagram: 02/08/1862302/08/18623 LIVIA ADAME NP Feb 12, 2018 11:31
--- NOTE | 2018-02-12 12:11 | CONS ---
Date/Time of Note Date/Time of Note DATE: 02/12/18 TIME: 11:49 Assessment/Plan Assessment/Plan Chief Complaint/Hosp Course 1. Unstageable sacral wound: -debridement tomorrow -local care -frequent turning and off-loading -low air loss mattress -vitamin c -short term zinc -optimize nutrition 2. Bilateral lower extremity ulcers: -As above -Per podiatry 3. 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 Depression: -Psychiatric optimization 5. Paraplegia -Supportive 6. Hypertension -Med management 7. Hypochromic microcytic anemia: -Monitor and transfuse as needed Thank you. Patient seen and examined in collaboration with Dr. Brian Angulo. Consultation Date/Type/Reason Admit Date/Time Jan 25, 2018 at 14:38 Date of Consultation: Feb 12, 2018 Type of Consult Surgical Reason for Consultation Wounds Requesting Provider: LIVIA ADAME NP Hx of Present Illness Papo Wynne is a 57-year-old man with past medical history of paraplegia reportedly due to spinal cord syndrome who presented to the ED from [facility] facility due to foul-smelling drainage from ulcer in the right foot. He is currently admitted for bilateral lower extremity decubitus wounds status post excisional debridement by podiatry. No recent fevers, chills, congested cough, chest pain, palpitations, excessive wound drainage or odor. While in-house, he was also noted to have a sacral decubitus ulcer that is unstageable. General surgery was asked to evaluate. 12 point ROS was performed and is negative except for as stated in HPI Past Medical History As above Past Surgical History As above Family History Significant Family History: no pertinent family hx Social History Alcohol Use: rarely Smoking Status: Never smoker Drug Use: none Exam/Review of Systems Vital Signs Vitals Vital Signs Date Temp Pulse Resp B/P (MAP) Pulse Ox O2 O2 Flow FiO2 Time Delivery Rate 02/12/18 97.8 94 18 114/62 96 07:45 (79) 02/11/18 Room Air 07:50 Intake and Output 02/11/18 02/11/18 02/12/18 1515:00 23:00 07:00 IntakeIntake Total 450 ml 400 ml 650 ml OutputOutput Total 600 ml 500 ml 2050 ml BalanceBalance -150 ml -100 ml -1400 ml Exam Constitutional: alert, oriented Psych: nl mood/affect, anxiety (Minimal) Head: normocephalic, atraumatic Eyes: nl conjunctiva, EOMI, nl sclera ENMT: nl external ears & nose, nl lips & teeth, mucosa pink and moist Neck: supple, non-tender Respiratory: normal air movement; No congested cough Cardiovascular: regular rate and rhythm; No edema Gastrointestinal: soft, non-tender; No distended Musculoskeletal: nl extremities to inspection; No nl gait and stance Extremities: normal pulses; No edema Neurological: nl mental status, nl speech Skin: nl turgor, other (Sacral unstageable: Slough and debris, no periwound erythema, no drainage; bilateral lower extremity ulcers: Wrapped) Medications Medications Current Medications IV Flush (NS 3 ml) 3 ml PER PROTOCOL IV ; Start 01/25/18 at 15:30 Ondansetron HCl (Zofran Inj) 4 mg Q6H PRN IV NAUSEA AND/OR VOMITING; Start 01/25/18 at 15:30 Acetaminophen (Tylenol Tab) 650 mg Q6H PRN PO PAIN LEVEL 1-3 OR FEVER; Start 01/25/18 at 15:30 Acetaminophen/ Hydrocodone Bitart ([place] (5/325)) 1 tab Q6H PRN PO MODERATE PAIN LEVEL 4-6 Last administered on 02/11/18 23:14; Admin Dose 1 TAB; Start 01/25/18 at 15:30 Allopurinol (Zyloprim) 100 mg DAILY PO Last administered on 02/12/18 08:29; Admin Dose 100 MG; Start 01/26/18 at 09:00 Baclofen (Lioresal) 10 mg TID PO Last administered on 02/12/18 08:29; Admin Dose 10 MG; Start 01/25/18 at 21:00 Carvedilol (Coreg) 12.5 mg BID PO Last administered on 02/12/18 08:28; Admin Dose 12.5 MG; Start 01/25/18 at 21:00 Duloxetine HCl (Cymbalta) 30 mg DAILY PO Last administered on 02/12/18 08:28; Admin Dose 30 MG; Start 01/26/18 at 09:00 Famotidine (Pepcid) 20 mg BID PO Last administered on 02/12/18 08:28; Admin Dose 20 MG; Start 01/25/18 at 21:00 Folic Acid (Folic Acid) 1 mg DAILY PO Last administered on 02/12/18 08:29; Admin Dose 1 MG; Start 01/26/18 at 09:00 Gabapentin (Neurontin) 100 mg BID PO Last administered on 02/12/18 08:28; Admin Dose 100 MG; Start 01/25/18 at 21:00 Isoniazid (Isoniazid) 300 mg DAILY PO Last administered on 02/12/18 08:28; Admin Dose 300 MG; Start 01/26/18 at 09:00 Magnesium Oxide (Mag-Ox 400) 400 mg BID PO Last administered on 02/12/18 08:29; Admin Dose 400 MG; Start 01/25/18 at 21:00 Nystatin 1 applic BID TOP Last administered on 02/11/18 20:43; Admin Dose 1 APPLIC; Start 01/25/18 at 21:00 Pyridoxine HCl (Vitamin B6) 50 mg DAILY PO Last administered on 02/12/18 08:28; Admin Dose 50 MG; Start 01/26/18 at 09:00 Rifampin (Rifampin) 600 mg DAILY PO Last administered on 02/12/18 08:29; Admin Dose 600 MG; Start 01/26/18 at 09:00 Risperidone (Risperdal) 1 mg QHS PO Last administered on 02/11/18 20:35; Admin Dose 1 MG; Start 01/25/18 at 21:00 Zonisamide (Zonegran) 300 mg QHS PO Last administered on 02/11/18 20:35; Admin Dose 300 MG; Start 01/25/18 at 21:00 Eye Lubricant (Artificial Tears Oph) 1 drop Q8 BOTH EYES Last administered on 02/12/18 05:54; Admin Dose 1 DROP; Start 01/25/18 at 22:00 Miscellaneous Information (Pending [facility] Order For Wound Care) This patient woody... PRN PRN XX wound; Start 01/25/18 at 16:30 Vitamin A/Vitamin D (Vitamin A & D Oint) 1 applic BID TOP Last administered on 02/11/18 20:54; Admin Dose 1 APPLIC; Start 01/26/18 at 21:00 Docusate Sodium/ Ferrous Fumarate (Sangita-Sequels) 1 tab BID PO Last administered on 02/12/18 08:29; Admin Dose 1 TAB; Start 01/27/18 at 21:00 Docusate Sodium (Colace) 200 mg BID PO Last administered on 02/12/18 08:29; Admin Dose 200 MG; Start 01/27/18 at 21:00 Enoxaparin Sodium (Lovenox) 40 mg DAILY SC Last administered on 02/12/18 08:30; Admin Dose 40 MG; Start 01/28/18 at 09:00 Sodium Hypochlorite (Dakin'S (Dilute 1/40)) 1 applic DAILY IRR Last administered on 02/10/18 09:49; Admin Dose 1 APPLIC; Start 01/27/18 at 18:30 Collagenase (Santyl) 1 applic DAILY TOP Last administered on 02/10/18 09:48; Admin Dose 1 APPLIC; Start 01/27/18 at 17:30 Hydrocortisone (Hydrocortisone 1% Cr) 1 applic BID TOP Last administered on 02/11/18at 20:43; Admin Dose 1 APPLIC; Start 01/27/18 at 21:19 Levofloxacin (Levaquin) 500 mg DAILY@06 PO Last administered on 02/12/18 05:53; Admin Dose 500 MG; Start 02/02/18 at 14:00; Stop 02/12/18 at 13:59 Collagenase (Santyl) 1 applic DAILY TOP Last administered on 02/10/18 09:48; Admin Dose 1 APPLIC; Start 02/04/18 at 09:00 Nitroglycerin (Nitroglycerin (Sl Tab) 0.4 Mg) 1 tab Q5M PRN SL ANGINA; Start 02/05/18 at 07:00 Morphine Sulfate (morphine) 6 mg Q4H PRN PO SEVERE PAIN LEVEL 7-10 Last admi nistered on 02/12/18 08:28; Admin Dose 6 MG; Start 02/11/18 at 20:00 Results Result Diagram: 02/08/1862302/08/18623 FERNANDO DÍAZ NP Feb 12, 2018 12:02
[2018-02-12] MEDS ORDERED: SILVER NITRATE SWAB TOP ONE (12:30)
[2018-02-12 14:00] VITALS: BP 118/74; PULSE 66; RESP 18
--- NOTE | 2018-02-12 14:05 | NUR ---
Nutrition Notes Multiple wounds - Rec vitamin C 500mg daily and MVI with minerals daily. Thank you!
--- NOTE | 2018-02-12 14:16 | NUR ---
OT NOTE S: Pt cleared per NEELA Wong. Pt complaining of mod pain all over. Pt agreeable to session including PN of skills. Pt states he was up all night and is fatigued today. O: Pt found supine with HOB elevated. Pt completed BUE ROM assessment, RUE WFL with strength 4-/5. Pt demonstrates increased ROM but still limited in L shoulder, strength 3+/5. Pt able to roll side to side with mod A today. Required Max A x2 to reposition to HOB and assist to L side. Pt left with all needs within reach, RN present. A: Fair tolerance, pt made improvements in BUE ROM/MMT bilaterally and balance. P: Continue POC. Continue to rec SNF pending dc.
--- NOTE | 2018-02-12 14:52 | NUR ---
Items requested from [employer] Martha for patient's debridement collected and in landis in charge nurse office.
[2018-02-12] MEDS: HYDROCODONE/APAP (5/325) TAB PO PRN (15:46)
--- NOTE | 2018-02-12 18:50 | NUR ---
Patient alert and oriented x4. wound care done on this shift. patient afebrile, no distress or shortness of breath noted. patient spoke to doctor about his concerns. Wound debridement on his sacrum is scheduled tomorrow and consent signed in the folder. pain medication given to manage pain, fall precaution in place, call light within reach. will endorse to administrative medical director nurse.
--- NOTE | 2018-02-12 19:18 | NUR ---
Antionette from infection control called and stated that she received a fax from [facility] stating "patient is no longer considered a [place] suspect, and recommends discontinuing TB therapy". Fax number is in chart, Juliette informed and aware.
[2018-02-12 19:45] VITALS: BP 109/63; PULSE 73; RESP 20
[2018-02-12] MEDS: RISPERIDONE 1 MG TAB PO SCH (20:14)
[2018-02-12] MEDS: ZONISAMIDE 100 MG CAP PO SCH (21:14)
[2018-02-12 21:15] VITALS: BP 149/70; PULSE 69
--- NOTE | 2018-02-12 23:24 | PN ---
Date/Time of Note Date/Time of Note DATE: 02/12/18 TIME: 23:24 Assessment/Plan VTE Prophylaxis Risk score (from Nsg)>0 risk: 5 SCD applied (from Nsg): Yes Pharmacological prophylaxis: heparin Lines/Catheters IV Catheter Type (from Nrs): Saline Lock Assessment/Plan Hospital Course 57 y/o paraplegic M patient presents to the floor with bilateral pressure heel wounds. Patient states they have been present for over two weeks. Patient states he was at another facility and his ex- also helps with the dressing changes and noticed worsening signs of the wound with foul smell. Patient denies f/c/n/v no chest pain or shortness of breath. Assessment/Plan 1) B/l decubitus heel ulcers right stage 2, left stage 1 2) Left decubitus ankle ulcer stage 2 - improving 3) Paraplegia b/l LE 4) Peripheral neuropathy 5) HTN 6) Depression 7) Latent TB Plan: Performed excisional debridement of right heel decubitus wound with scissors, pickups, and scalpel blade. Skin and subcutaneous tissue was excisionally debrided and wounds were irrigated with copious saline solution. Right foot wound cultures showing e. cloacae and enterococcus species. 20cm2 area of debridement performed. Daily wound dressing changes with dakins irrigation and dress with santyl, xeroform, and kerlix. Wound care orders are in place. Emphasized to nurse strict offloading of heels with prevalon soft boots or pillows. X-rays reviewed and did not appreciate sign of osteomyelitis. Continue with IV abx as per recommendations. Non-invasive studies ordered: No focal hemodynamically significant stenosis in either lower extremity. Patient can follow up in outpatient setting [facility] wound clinic. Medical decisions, treatment and plan coordinated with Dr. Courtney. Subjective 24 Hr Interval Summary Free Text/Dictation No acute events overnight Exam/Review of Systems Vital Signs Vitals Vital Signs Date Temp Pulse Resp B/P (MAP) Pulse Ox O2 O2 Flow FiO2 Time Delivery Rate 02/12/18 69 149/70 21:15 (96) 02/12/18 98.1 20 98 19:45 02/11/18 Room Air 07:50 Intake and Output 02/11/18 02/11/18 02/12/18 1414:59 22:59 06:59 IntakeIntake Total 450 ml 400 ml 650 ml OutputOutput Total 600 ml 500 ml 2050 ml BalanceBalance -150 ml -100 ml -1400 ml Exam Palpable pedal pulses 2+ pitting edema Right foot full thickness ulcer with fibro granular wound bed and adipose tissue appreciated, no probing to bone, no purulence noted, wound margins measures 4 x 5 x 0.3cm. No proximal streaking. Left heel ulcer with signs of epithelialization and some areas of desquamation Left lateral malleolus with 1.0 x 0.8 x 0.3cm fibro granular wound base which does not probe to bone, no proximal streaking, no purulence. Absent muscle strength to the lower extremity Absent protective sensations to the bilateral lower extremities. Medications Medications Current Medications IV Flush (NS 3 ml) 3 ml PER PROTOCOL IV ; Start 01/25/18 at 15:30 Ondansetron HCl (Zofran Inj) 4 mg Q6H PRN IV NAUSEA AND/OR VOMITING; Start 01/25/18 at 15:30 Acetaminophen (Tylenol Tab) 650 mg Q6H PRN PO PAIN LEVEL 1-3 OR FEVER; Start 01/25/18 at 15:30 Acetaminophen/ Hydrocodone Bitart ([place] (5/325)) 1 tab Q6H PRN PO MODERATE PAIN LEVEL 4-6 Last administered on 02/12/18at 15:46; Admin Dose 1 TAB; Start 01/25/18 at 15:30 Allopurinol (Zyloprim) 100 mg DAILY PO Last administered on 02/12/18 08:29; Admin Dose 100 MG; Start 01/26/18 at 09:00 Baclofen (Lioresal) 10 mg TID PO Last administered on 02/12/18at 20:14; Admin Dose 10 MG; Start 01/25/18 at 21:00 Carvedilol (Coreg) 12.5 mg BID PO Last administered on 02/12/18 21:16; Admin Dose 12.5 MG; Start 01/25/18 at 21:00 Duloxetine HCl (Cymbalta) 30 mg DAILY PO Last administered on 02/12/18 08:28; Admin Dose 30 MG; Start 01/26/18 at 09:00 Famotidine (Pepcid) 20 mg BID PO Last administered on 02/12/18at 20:14; Admin Dose 20 MG; Start 01/25/18 at 21:00 Folic Acid (Folic Acid) 1 mg DAILY PO Last administered on 02/12/18 08:29; Admin Dose 1 MG; Start 01/26/18 at 09:00 Gabapentin (Neurontin) 100 mg BID PO Last administered on 02/12/18 20:14; Admin Dose 100 MG; Start 01/25/18 at 21:00 Isoniazid (Isoniazid) 300 mg DAILY PO Last administered on 02/12/18 08:28; Admin Dose 300 MG; Start 01/26/18 at 09:00 Magnesium Oxide (Mag-Ox 400) 400 mg BID PO Last administered on 02/12/18 20:14; Admin Dose 400 MG; Start 01/25/18 at 21:00 Nystatin 1 applic BID TOP Last administered on 02/12/18 20:15; Admin Dose 1 APPLIC; Start 01/25/18 at 21:00 Pyridoxine HCl (Vitamin B6) 50 mg DAILY PO Last administered on 02/12/18 08:28; Admin Dose 50 MG; Start 01/26/18 at 09:00 Rifampin (Rifampin) 600 mg DAILY PO Last administered on 02/12/18 08:29; Admin Dose 600 MG; Start 01/26/18 at 09:00 Risperidone (Risperdal) 1 mg QHS PO Last administered on 02/12/18 20:14; Admin Dose 1 MG; Start 01/25/18 at 21:00 Zonisamide (Zonegran) 300 mg QHS PO Last administered on 02/12/18 21:14; Admin Dose 300 MG; Start 01/25/18 at 21:00 Eye Lubricant (Artificial Tears Oph) 1 drop Q8 BOTH EYES Last administered on 02/12/18 21:15; Admin Dose 1 DROP; Start 01/25/18 at 22:00 Miscellaneous Information (Pending [facility] Order For Wound Care) This patient woody... PRN PRN XX wound; Start 01/25/18 at 16:30 Vitamin A/Vitamin D (Vitamin A & D Oint) 1 applic BID TOP Last administered on 02/12/18 20:15; Admin Dose 1 APPLIC; Start 01/26/18 at 21:00 Docusate Sodium/ Ferrous Fumarate (Sangita-Sequels) 1 tab BID PO Last admi nistered on 12/13/18at 20:14; Admin Dose 1 TAB; Start 01/27/18 at 21:00 Docusate Sodium (Colace) 200 mg BID PO Last administered on 02/12/18 20:14; Admin Dose 200 MG; Start 01/27/18 at 21:00 Enoxaparin Sodium (Lovenox) 40 mg DAILY SC Last administered on 02/12/18 08:30; Admin Dose 40 MG; Start 01/28/18 at 09:00 Sodium Hypochlorite (Dakin'S (Dilute 40)) 1 applic DAILY IRR Last administe red on 02/10/18 09:49; Admin Dose 1 APPLIC; Start 01/27/18 at 18:30 Collagenase (Santyl) 1 applic DAILY TOP Last administered on 02/10/18 09:48; Admin Dose 1 APPLIC; Start 01/27/18 at 17:30 Hydrocortisone (Hydrocortisone 1% Cr) 1 applic BID TOP Last administered on 02/12/18 20:15; Admin Dose 1 APPLIC; Start 01/27/18 at 21:19 Collagenase (Santyl) 1 applic DAILY TOP Last administered on 02/10/18 09:48; Admin Dose 1 APPLIC; Start 02/04/18 at 09:00 Nitroglycerin (Nitroglycerin (Sl Tab) 0.4 Mg) 1 tab Q5M PRN SL ANGINA; Start 02/05/18 at 07:00 Morphine Sulfate (morphine) 6 mg Q4H PRN PO SEVERE PAIN LEVEL 7-10 Last administered on 02/12/18 21:17; Admin Dose 6 MG; Start 02/11/18 at 20:00 Results Result Diagram: 02/08/1862302/08/18623 LUKE BONILLA DPM Feb 12, 2018 23:24
[2018-02-13 02:07] VITALS: BP 112/65; PULSE 79; RESP 18
[2018-02-13] MEDS: HYDROCODONE/APAP (5/325) TAB PO PRN ×2 (04:26→21:31)
[2018-02-13] MEDS: ARTIFICIAL TEARS 15 ML OPH BOTH EYES SCH ×3 (05:24→21:29)
--- NOTE | 2018-02-13 06:55 | NUR ---
END OF SHIFT: Patient in room asleep with no signs of distress at this time. Vital signs stable. Patient complained of pain this shift with [place] administered; patient denied pain thereafter. Consent in chart for excisional debridement of sacrum scheduled for today. Will endorse to oncoming nurse all equipment are prepared and located at the nurses station. No other changes noted from previous. All needs met and medications administered this shift. Patient turned every 2 hours with heels kept elevated throughout shift. Allevyn in place to bony prominences for wound prevention. Dressings clean, dry, and intact at this time. Safety precautions and hourly rounding currently in place until the change of shift.
[2018-02-13 08:00] VITALS: BP_SYST 120; BP_SYST 128; BP_DIAS 64; BP_DIAS 72; PULSE 76; PULSE 88; RESP 20
[2018-02-13] MEDS: FERROUS FUMARATE (SR) TAB PO SCH ×2 (09:09→21:28)
[2018-02-13] MEDS: ISONIAZID 300 MG TAB PO SCH (09:09)
[2018-02-13] MEDS: ENOXAPARIN 40 MG/0.4 ML SYG SC SCH (09:09)
[2018-02-13] MEDS: FAMOTIDINE 20 MG TAB PO SCH ×2 (09:10→21:27)
[2018-02-13] MEDS: RIFAMPIN 300 MG CAP PO SCH (09:10)
[2018-02-13] MEDS: ALLOPURINOL 100 MG TAB PO SCH (09:10)
[2018-02-13] MEDS: DOCUSATE SODIUM 100 MG CAP PO SCH ×2 (09:10→21:28)
[2018-02-13] MEDS: FOLIC ACID 1 MG TAB PO SCH (09:10)
[2018-02-13] MEDS: MAGNESIUM OXIDE 400 MG TAB PO SCH ×2 (09:10→21:28)
[2018-02-13] MEDS: GABAPENTIN 100 MG CAP PO SCH ×2 (09:10→21:27)
[2018-02-13] MEDS: PYRIDOXINE 50 MG TAB PO SCH (09:10)
[2018-02-13] MEDS: BACLOFEN 10 MG TAB PO SCH ×3 (09:10→21:27)
[2018-02-13] MEDS: DULOXETINE 30 MG CAP DR PO SCH (09:10)
[2018-02-13] MEDS: VITAMIN A & D 5 GM OINT PACKET TOP SCH ×2 (09:11→21:30)
[2018-02-13] MEDS: BALSAM PERU/CASTOR OIL 60 GM TUBE TOP SCH (09:11)
[2018-02-13] MEDS: HYDROCORTISONE 1% 28 GM CR TOP SCH ×2 (09:11→21:30)
[2018-02-13] MEDS: NYSTATIN 15 GM POWDER BTL TOP SCH ×2 (09:11→21:30)
[2018-02-13] MEDS: SODIUM HYPOCHLORITE (1/40) 1 APPLIC BTL IRR SCH (09:11)
[2018-02-13] MEDS: COLLAGENASE 5 GM (UD JAR) TOP SCH ×2 (09:11)
--- NOTE | 2018-02-13 11:07 | NUR ---
Case Mngt: Spoke with [facility] Idris ([phone], F:[phone]) requested for patient update and CM notes regarding SNF referrals. Faxed CM notes and MD progress notes.
--- NOTE | 2018-02-13 11:09 | PN ---
Date/Time of Note Date/Time of Note DATE: 02/13/18 TIME: 10:59 Assessment/Plan VTE Prophylaxis Risk score (from Nsg)>0 risk: 5 SCD applied (from Nsg): Yes Pharmacological prophylaxis: LMWH Lines/Catheters IV Catheter Type (from Nrsg): Saline Lock Assessment/Plan Hospital Course SUBJECTIVE: No acute overnight episodes. OBJECTIVE: Vital signs-see below PHYSICAL EXAM: Constitutional: Bedbound male, not in acute distress. Psych: nl mood/affect, no complaints Head: atraumatic, normocephalic Eyes: nl conjunctiva, nl sclera ENMT: mucosa pink and moist, nl external ears & nose Neck: non-tender, supple Respiratory: clear to auscultation, normal air movement Cardiovascular: nl pulses, regular rate and rhythm Gastrointestinal: non-tender, soft, bowel sounds active in all 4 quadrants. Musculoskeletal/extremities: Paraplegic. Normal pulses,no cyanosis, no edema. Neurological: Alert oriented 3,nl speech, nl strength Skin: Bilateral heel with ulcers, covered with dressing. No oozing noted on dressing. Nl turgor ASSESSMENT/PLAN: Very unfortunate 57-year-old male with a history of paraplegia secondary to spinal cord syndrome 6 months ago, who also resides in a retirement, presented to the emergency room with worsening bilateral heel ulcers with foul-smelling drainage 1. Bilateral heel Decub ulcers -status post excisional debridement of bilateral heel decubitus. No evidence of osteomyelitis. -Pt with elevated ESR and CRP and. Recommend continuation of IV antibiotics for another 2 weeks. Restart Levaquin IV. -Continue wound care per podiatry recommendation with Dakin's irrig ation/Xeroform/Kerlix dressing. 2. Paraplegia secondary to spinal disorder and back surgery 6 months ago -Exact nature of disorder and surgery unclear -Continue baclofen 3. 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 Per [facility] recs, DC TB meds 4. Depression -Continue home Cymbalta 5. Hypertension -Continue Coreg 6. Debility secondary to #2. -Patient resides in a retirement. 7. Chronic anemia with mild iron deficiency. -Stable H&H after 1 unit transfusion. -Continue oral iron replacement. 8. Unstageable pressure ulcers, sacral coccyx -Appreciate surgery evaluation and plan is debridement -Continue wound care Prophylaxis:Lovenox/Pepcid Diet: Regular CODE STATUS: Full code Disposition: Continue current medical management. Patient eventually needs [facility] facility placement. Patient was seen in collaboration with Dr. Awad. Exam/Review of Systems Vital Signs Vitals Vital Signs Date Temp Pulse Resp B/P (MAP) Pulse Ox O2 O2 Flow FiO2 Time Delivery Rate 02/13/18 98.8 76 20 128/72 98 08:00 (90) 02/11/18 Room Air 07:50 Intake and Output 02/12/18 02/12/18 02/13/18 1515:00 23:00 07:00 IntakeIntake Total 710 ml 470 ml 1000 ml OutputOutput Total 800 ml 1725 ml BalanceBalance 710 ml -330 ml -725 ml Medications Medications Current Medications IV Flush (NS 3 ml) 3 ml PER PROTOCOL IV ; Start 01/25/18 at 15:30 Ondansetron HCl (Zofran Inj) 4 mg Q6H PRN IV NAUSEA AND/OR VOMITING; Start 01/25/18 at 15:30 Acetaminophen (Tylenol Tab) 650 mg Q6H PRN PO PAIN LEVEL 1-3 OR FEVER; Start 01/25/18 at 15:30 Acetaminophen/ Hydrocodone Bitart ([place] (5/325)) 1 tab Q6H PRN PO MODERATE PAIN LEVEL 4-6 Last administered on 02/13/18at 04:26; Admin Dose 1 TAB; Start 01/25/18 at 15:30 Allopurinol (Zyloprim) 100 mg DAILY PO Last administered on 02/13/18 09:10; Admin Dose 100 MG; Start 01/26/18 at 09:00 Baclofen (Lioresal) 10 mg TID PO Last administered on 02/13/18at 09:10; Admin Dose 10 MG; Start 01/25/18 at 21:00 Carvedilol (Coreg) 12.5 mg BID PO Last administered on 02/13/18 09:11; Admin Dose 12.5 MG; Start 01/25/18 at 21:00 Duloxetine HCl (Cymbalta) 30 mg DAILY PO Last administered on 02/13/18 09:10; Admin Dose 30 MG; Start 01/26/18 at 09:00 Famotidine (Pepcid) 20 mg BID PO Last administered on 02/13/18 09:10; Admin Dose 20 MG; Start 01/25/18 at 21:00 Folic Acid (Folic Acid) 1 mg DAILY PO Last administered on 02/13/18 09:10; Admin Dose 1 MG; Start 01/26/18 at 09:00 Gabapentin (Neurontin) 100 mg BID PO Last administered on 02/13/18 09:10; Admin Dose 100 MG; Start 01/25/18 at 21:00 Isoniazid (Isoniazid) 300 mg DAILY PO Last administered on 02/13/18 09:09; Admin Dose 300 MG; Start 01/26/18 at 09:00 Magnesium Oxide (Mag-Ox 400) 400 mg BID PO Last administered on 02/13/18 09:10; Admin Dose 400 MG; Start 01/25/18 at 21:00 Nystatin 1 applic BID TOP Last administered on 02/13/18 09:11; Admin Dose 1 APPLIC; Start 01/25/18 at 21:00 Pyridoxine HCl (Vitamin B6) 50 mg DAILY PO Last administered on 02/13/18 09:10; Admin Dose 50 MG; Start 01/26/18 at 09:00 Rifampin (Rifampin) 600 mg DAILY PO Last administered on 02/13/18 09:10; Admin Dose 600 MG; Start 01/26/18 at 09:00 Risperidone (Risperdal) 1 mg QHS PO Last administered on 02/12/18 20:14; Adm in Dose 1 MG; Start 01/25/18 at 21:00 Zonisamide (Zonegran) 300 mg QHS PO Last administered on 02/12/18 21:14; Admin Dose 300 MG; Start 01/25/18 at 21:00 Eye Lubricant (Artificial Tears Oph) 1 drop Q8 BOTH EYES Last administered on 02/13/18 05:24; Admin Dose 1 DROP; Start 01/25/18 at 22:00 [facility] This patient woody... PRN PRN XX wound; Start 01/25/18 at 16:30 Vitamin A/Vitamin D (Vitamin A & D Oint) 1 applic BID TOP Last administered on 02/13/18at 09:11; Admin Dose 1 APPLIC; Start 01/26/18 at 21:00 Docusate Sodium/ Ferrous Fumarate (Sangita-Sequels) 1 tab BID PO Last administered on 02/13/18 09:09; Admin Dose 1 TAB; Start 01/27/18 at 21:00 Docusate Sodium (Colace) 200 mg BID PO Last administered on 02/13/18 09:10; Admin Dose 200 MG; Start 01/27/18 at 21:00 Enoxaparin Sodium (Lovenox) 40 mg DAILY SC Last administered on 02/13/18 09:09; Admin Dose 40 MG; Start 01/28/18 at 09:00 Sodium Hypochlorite (Dakin'S (Dilute 1/40)) 1 applic DAILY IRR Last administered on 02/13/18 09:11; Admin Dose 1 APPLIC; Start 01/27/18 at 18:30 Collagenase (Santyl) 1 applic DAILY TOP Last administered on 02/13/18 09:11; Admin Dose 1 APPLIC; Start 01/27/18 at 17:30 Hydrocortisone (Hydrocortisone 1% Cr) 1 applic BID TOP Last administered on 02/13/18 09:11; Admin Dose 1 APPLIC; Start 01/27/18 at 21:19 Collagenase (Santyl) 1 applic DAILY TOP Last administered on 02/13/18 09:11; Admin Dose 1 APPLIC; Start 02/04/18 at 09:00 Nitroglycerin (Nitroglycerin (Sl Tab) 0.4 Mg) 1 tab Q5M PRN SL ANGINA; Start 02/05/18 at 07:00 Morphine Sulfate (morphine) 6 mg Q4H PRN PO SEVERE PAIN LEVEL 7-10 Last administered on 02/12/18at 21:17; Admin Dose 6 MG; Start 02/11/18 at 20:00 Results Result Diagram: 02/13/1802 02/13/18 0702 Results 24 hrs Laboratory Tests Test 02/13/18 07:02 White Blood Count 3.6 L Red Blood Count 3.58 L Hemoglobin 9.3 L Hematocrit 29.4 L Mean Corpuscular Volume 82.1 Mean Corpuscular Hemoglobin 26.0 L Mean Corpuscular Hemoglobin Concent 31.6 L Red Cell Distribution Width 17.1 H Platelet Count 344 Mean Platelet Volume 8.4 Immature Granulocytes % 0.300 Neutrophils % 43.0 Lymphocytes % 32.0 Monocytes % 12.4 H Eosinophils % 11.2 H Basophils % 1.1 Nucleated Red Blood Cells % 0.0 Immature Granulocytes # 0.010 Neutrophils # 1.5 L Lymphocytes # 1.1 Monocytes # 0.4 Eosinophils # 0.4 Basophils # 0.0 Nucleated Red Blood Cells # 0.0 Erythrocyte Sedimentation Rate 100 H Sodium Level 141 Potassium Level 4.3 Chloride Level 109 Carbon Dioxide Level 21 Anion Gap 11 Blood Urea Nitrogen 17 Creatinine 0.71 Est Glomerular Filtrat Rate mL/min > 60 Glucose Level 88 Calcium Level 9.3 C-Reactive Protein 2.3 H LIVIA ADAME NP Feb 13, 2018 11:09
[2018-02-13] MEDS: LEVOFLOXACIN 500MG/D5W (PMX) 100 ML IVPB SCH (11:58)
[2018-02-13 12:00] VITALS: BP 128/72; PULSE 76; RESP 18
--- NOTE | 2018-02-13 13:00 | NUR ---
OT NOTE S: Pt agreeable to OT. Painful behaviors noted throughout. Pt cleared per RN. Pt had debridement on sacral area this AM, no bleeding noted by RN or during therapy. O: Pt found supine with HOB elevated. Completed bed rolling with mod/max A to place pad underneath patient. Pt required max A x2 for supine to sit transfer. Sat EOB with fair balance to complete reaching, alternating reaching, and balance tasks with cGA/min to maintain balance. Max A x2 to return to supine and reposition. Left with all needs within reach, bed alarm on. A: Fair tolerance. P: Continue POC.
--- NOTE | 2018-02-13 13:53 | PN ---
Date/Time of Note Date/Time of Note DATE: 02/13/18 TIME: 13:52 Assessment/Plan Lines/Catheters IV Catheter Type (from [facility]): Saline Lock Assessment/Plan Chief Complaint/Hosp Course 1. Unstageable sacral wound: -debridement today -local care -frequent turning and off-loading -low air loss mattress -vitamin c -short term zinc -optimize nutrition 2. Bilateral lower extremity ulcers: -As above -Per podiatry 3. 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 Depression: -Psychiatric optimization 5. Paraplegia -Supportive 6. Hypertension -Med management 7. Hypochromic microcytic anemia: -Monitor and transfuse as needed Thank you. Patient seen and examined in collaboration with Dr. Brian Angulo. Subjective 24 Hr Interval Summary Feels well. Debridement of sacrum today. No fevers, chills, sob, congested cough, cp, palpitations, woody, dizziness, n/v/d/dysuria. Exam/Review of Systems Vital Signs Vitals Vital Signs Date Temp Pulse Resp B/P (MAP) Pulse Ox O2 O2 Flow FiO2 Time Delivery Rate 02/13/18 98.8 76 20 128/72 98 08:00 (90) 02/11/18 Room Air 07:50 Intake and Output 02/12/18 02/12/18 02/13/18 1515:00 23:00 07:00 IntakeIntake Total 710 ml 470 ml 1000 ml OutputOutput Total 800 ml 1725 ml BalanceBalance 710 ml -330 ml -725 ml Exam Free Text/Dictation Constitutional: alert, oriented Psych: nl mood/affect, anxiety (Minimal) Head: normocephalic, atraumatic Eyes: nl conjunctiva, EOMI, nl sclera ENMT: nl external ears & nose, nl lips & teeth, mucosa pink and moist Neck: supple, non-tender Respiratory: normal air movement; No congested cough Cardiovascular: regular rate and rhythm; No edema Gastrointestinal: soft, non-tender; No distended Musculoskeletal: nl extremities to inspection; No nl gait and stance Extremities: normal pulses; No edema Neurological: nl mental status, nl speech Skin: nl turgor, other (Sacral unstageable: Slough and debris, no periwound erythema, no drainage; bilateral lower extremity ulcers: Wrapped) Results Result Diagram: 02/13/18 0702 02/13/18 0702 FERNANDO DÍAZ NP Feb 13, 2018 13:53
--- NOTE | 2018-02-13 13:59 | OPR ---
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 Patient placed in his own bed in right lateral decubitus. Area was prepped and draped in sterile fashion. Timeout was performed. Using scalpel and curette, the necrotic tissue and debris of the sacral skin and subcutaneous were debrided to healthier edges. Area was irrigated with Betadine and packed with Betadine moistened gauze. Dry dressing placed to cover. FERNANDO DÍAZ NP Feb 13, 2018 13:58
--- NOTE | 2018-02-13 14:16 | NUR ---
PT NOTE , Therapy day number 4 Subjective Current complaint of pain Pain Scale NUMERIC Pain Intensity 5 (0-10) Patient Stated Goal for Pain Relief 0 (0-10) Pain Level Comment LOWER BACK PAIN . Transfer Training Start Time 13:30 Supine to Sit Maximum Assist Bed Mobility Sit to Supine Maximum Assist Sitting Tolerance 25 min Additional Mobility Comments 2P FOR ANT./POST/ LATER WEIGH SHIFTING . Transfer Training End Time 13:55 Total Transfer Training Time 25 min (8-127) Static Sitting Balance Fair Dynamic Sitting Balance Poor plus Equipment Present A pump Additional Equipment Present HEEL PROTECTOR/MICHAEL Post Treatment Pain Intensity 5 0-10 Variance Documentation P/S SEE PT NOTE . Total Treatment Time 25 min (8-127) Total Minutes 25 Total Units 2 PT Technical Record Comment PT Technical Record Comment PT NOTE S: Mod c/o pain d/t just receiving morphine. Agreed to skilled PT. Cleared and premedicated .. O: Received awake in semi-whitmore . VCs on sequencing during transfer. Performed seated static/dynamic sitting balance activities including lat/ant/post weight shifting. Returned back to supine d/t fatigue. . Left in semi-whitmore, call light and all necessities within reach, B feet elevated. A: Pt juan josé tx fairly. 2PA for safety and mobility. Required max ____>cg A for sitting balance training and min/mod A for recovery when LOB occured. P: Continue with POC.
--- NOTE | 2018-02-13 18:02 | PN ---
Date/Time of Note Date/Time of Note DATE: 02/13/18 TIME: 18:02 Assessment/Plan VTE Prophylaxis Risk score (from Nsg)>0 risk: 5 Pharmacological prophylaxis: heparin Lines/Catheters IV Catheter Type (from Nrsg): Saline Lock Assessment/Plan Hospital Course 57 y/o paraplegic M patient presents to the floor with bilateral pressure heel wounds. Patient states they have been present for over two weeks. Patient states he was at another facility and his ex- also helps with the dressing changes and noticed worsening signs of the wound with foul smell. Patient denies f/c/n/v no chest pain or shortness of breath. Assessment/Plan 1) B/l decubitus heel ulcers right stage 2, left lower extremity resolved 2) Left decubitus ankle ulcer stage - resolved 3) Paraplegia b/l LE 4) Peripheral neuropathy 5) HTN 6) Depression Plan: Wounds were irrigated with copious saline solution. Right foot wound cultures showing e. cloacae and enterococcus species. Daily wound dressing changes with dakins irrigation and dress with santyl, xeroform, and kerlix. Wound care orders are in place. Emphasized to nurse strict offloading of heels with pillows. X-rays reviewed and did not appreciate sign of osteomyelitis. Continue with IV abx as per recommendations. Non-invasive studies ordered: No focal hemodynamically significant stenosis in either lower extremity. Patient may follow up in outpatient [facility] wound clinic Medical decisions, treatment and plan coordinated with Dr. Courtney. Subjective 24 Hr Interval Summary Free Text/Dictation No acute events overnight. Exam/Review of Systems Vital Signs Vitals Vital Signs Date Temp Pulse Resp B/P (MAP) Pulse Ox O2 O2 Flow FiO2 Time Delivery Rate 02/13/18 98.6 76 18 128/72 94 12:00 (90) 02/11/18 Room Air 07:50 Intake and Output 02/12/18 02/12/18 02/13/18 1515:00 23:00 07:00 IntakeIntake Total 710 ml 470 ml 1000 ml OutputOutput Total 800 ml 1725 ml BalanceBalance 710 ml -330 ml -725 ml Exam Palpable pedal pulses 2+ pitting edema Right foot full thickness ulcer with fibro granular wound bed and adipose tissue appreciated, no probing to bone, no purulence noted, wound margins measures 4 x 5 x 0.3cm. No proximal streaking. Left heel ulcer with signs of epithelialization and some areas of desquamation Left lateral malleolus with displaying signs of epithelialization Absent muscle strength to the lower extremity Absent protective sensations to the bilateral lower extremities. Medications Medications Current Medications IV Flush (NS 3 ml) 3 ml PER PROTOCOL IV ; Start 01/25/18 at 15:30 Ondansetron HCl (Zofran Inj) 4 mg Q6H PRN IV NAUSEA AND/OR VOMITING; Start 01/25/18 at 15:30 Acetaminophen (Tylenol Tab) 650 mg Q6H PRN PO PAIN LEVEL 1-3 OR FEVER; Start 01/25/18 at 15:30 Acetaminophen/ Hydrocodone Bitart ([place] (5/325)) 1 tab Q6H PRN PO MODERATE PAIN LEVEL 4-6 Last administered on 02/13/18 04:26; Admin Dose 1 TAB; Start 01/25/18 at 15:30 Allopurinol (Zyloprim) 100 mg DAILY PO Last administered on 02/13/18 09:10; Admin Dose 100 MG; Start 01/26/18 at 09:00 Baclofen (Lioresal) 10 mg TID PO Last administered on 02/13/18at 12:41; Admin Dose 10 MG; Start 01/25/18 at 21:00 Carvedilol (Coreg) 12.5 mg BID PO Last administered on 02/13/18 09:11; Admin Dose 12.5 MG; Start 01/25/18 at 21:00 Duloxetine HCl (Cymbalta) 30 mg DAILY PO Last administered on 02/13/18 09:10; Admin Dose 30 MG; Start 01/26/18 at 09:00 Famotidine (Pepcid) 20 mg BID PO Last administered on 02/13/18 09:10; Admin Dose 20 MG; Start 01/25/18 at 21:00 Folic Acid (Folic Acid) 1 mg DAILY PO Last administered on 02/13/18 09:10; Admin Dose 1 MG; Start 01/26/18 at 09:00 Gabapentin (Neurontin) 100 mg BID PO Last administered on 02/13/18 09:10; Admin Dose 100 MG; Start 01/25/18 at 21:00 Magnesium Oxide (Mag-Ox 400) 400 mg BID PO Last administered on 02/13/18 09:10; Admin Dose 400 MG; Start 01/25/18 at 21:00 Nystatin 1 applic BID TOP Last administered on 02/13/18 09:11; Admin Dose 1 APPLIC; Start 01/25/18 at 21:00 Pyridoxine HCl (Vitamin B6) 50 mg DAILY PO Last administered on 02/13/18 09:10; Admin Dose 50 MG; Start 01/26/18 at 09:00 Risperidone (Risperdal) 1 mg QHS PO Last administered on 02/12/18 20:14; Admin Dose 1 MG; Start 01/25/18 at 21:00 Zonisamide (Zonegran) 300 mg QHS PO Last administered on 02/12/18 21:14; Admin Dose 300 MG; Start 01/25/18 at 21:00 Eye Lubricant (Artificial Tears Oph) 1 drop Q8 BOTH EYES Last administered on 02/13/18 14:14; Admin Dose 1 DROP; Start 01/25/18 at 22:00 Miscellaneous Information (Pending Santyl Order For Wound Care) This patient woody... PRN PRN XX wound; Start 01/25/18 at 16:30 Vitamin A/Vitamin D (Vitamin A & D Oint) 1 applic BID TOP Last administered on 02/13/18 09:11; Admin Dose 1 APPLIC; Start 01/26/18 at 21:00 Docusate Sodium/ Ferrous Fumarate (Sangita-Sequels) 1 tab BID PO Last administered on 02/13/18 09:09; Admin Dose 1 TAB; Start 01/27/18 at 21:00 Docusate Sodium (Colace) 200 mg BID PO Last administered on 02/13/18 09:10; Admin Dose 200 MG; Start 01/27/18 at 21:00 Enoxaparin Sodium (Lovenox) 40 mg DAILY SC Last administered on 02/13/18 09:09; Admin Dose 40 MG; Start 01/28/18 at 09:00 Sodium Hypochlorite (Dakin'S (Dilute 1/40)) 1 applic DAILY IRR Last administered on 02/13/18 09:11; Admin Dose 1 APPLIC; Start 01/27/18 at 18:30 Collagenase (Santyl) 1 applic DAILY TOP Last administered on 02/13/18 09:11; Admin Dose 1 APPLIC; Start 01/27/18 at 17:30 Hydrocortisone (Hydrocortisone 1% Cr) 1 applic BID TOP Last administered on 02/13/18at 09:11; Admin Dose 1 APPLIC; Start 01/27/18 at 21:19 Collagenase (Santyl) 1 applic DAILY TOP Last administered on 02/13/18at 09:11; Admin Dose 1 APPLIC; Start 02/04/18 at 09:00 Nitroglycerin (Nitroglycerin (Sl Tab) 0.4 Mg) 1 tab Q5M PRN SL ANGINA; Start 02/05/18 at 07:00 Morphine Sulfate (morphine) 6 mg Q4H PRN PO SEVERE PAIN LEVEL 7-10 Last administered on 02/12/18at 21:17; Admin Dose 6 MG; Start 02/11/18 at 20:00 Levofloxacin/ Dextrose 100 ml @ 100 mls/hr Q24H IVPB Last administered on 02/13/18at 11:58; Admin Dose 100 MLS/HR; Start 02/13/18 at 11:00 Results Result Diagram: 02/13/18 0702 02/13/18 0702 Results 24 hrs Laboratory Tests Test 02/13/18 07:02 White Blood Count 3.6 L Red Blood Count 3.58 L Hemoglobin 9.3 L Hematocrit 29.4 L Mean Corpuscular Volume 82.1 Mean Corpuscular Hemoglobin 26.0 L Mean Corpuscular Hemoglobin Concent 31.6 L Red Cell Distribution Width 17.1 H Platelet Count 344 Mean Platelet Volume 8.4 Immature Granulocytes % 0.300 Neutrophils % 43.0 Lymphocytes % 32.0 Monocytes % 12.4 H Eosinophils % 11.2 H Basophils % 1.1 Nucleated Red Blood Cells % 0.0 Immature Granulocytes # 0.010 Neutrophils # 1.5 L Lymphocytes # 1.1 Monocytes # 0.4 Eosinophils # 0.4 Basophils # 0.0 Nucleated Red Blood Cells # 0.0 Erythrocyte Sedimentation Rate 100 H Sodium Level 141 Potassium Level 4.3 Chloride Level 109 Carbon Dioxide Level 21 Anion Gap 11 Blood Urea Nitrogen 17 Creatinine 0.71 Est Glomerular Filtrat Rate mL/min > 60 Glucose Level 88 Calcium Level 9.3 C-Reactive Protein 2.3 H LUKE BONILLA DPM Feb 13, 2018 18:02
--- NOTE | 2018-02-13 18:14 | NUR ---
Patient with stable vitals throughout shift. Tolerating current treatment regimen. Wound care completed and patient turned and repositioned every 2 hours. Awaiting placement to SNF. Will continue to monitor and endorse to next shift
[2018-02-13] MEDS: morphine LIQ (10 MG/5 ML) CUP PO PRN (20:04)
[2018-02-13 20:44] VITALS: BP 107/70; PULSE 93; RESP 20
[2018-02-13] MEDS: ZONISAMIDE 100 MG CAP PO SCH (21:28)
[2018-02-13] MEDS: RISPERIDONE 1 MG TAB PO SCH (21:44)
[2018-02-14] MEDS: morphine LIQ (10 MG/5 ML) CUP PO PRN ×4 (00:41→22:40)
[2018-02-14 02:25] VITALS: BP 100/57; PULSE 82; RESP 18
[2018-02-14] MEDS: ARTIFICIAL TEARS 15 ML OPH BOTH EYES SCH ×3 (05:32→20:49)
--- NOTE | 2018-02-14 07:42 | NUR ---
RN Notes Patient had no change in condition during shift. Kept clean, dry and comfortable. Bed alarm activated for safety and hourly rounding provided. Patient's pain adequately managed with current pain regimen.
[2018-02-14 08:00] VITALS: BP_SYST 124; BP_SYST 132; BP_DIAS 62; BP_DIAS 64; PULSE 72; PULSE 92; RESP 18; RESP 20
[2018-02-14] MEDS: MAGNESIUM OXIDE 400 MG TAB PO SCH ×2 (09:07→20:46)
[2018-02-14] MEDS: FOLIC ACID 1 MG TAB PO SCH (09:07)
[2018-02-14] MEDS: FERROUS FUMARATE (SR) TAB PO SCH ×2 (09:07→20:47)
[2018-02-14] MEDS: DULOXETINE 30 MG CAP DR PO SCH (09:07)
[2018-02-14] MEDS: DOCUSATE SODIUM 100 MG CAP PO SCH ×2 (09:07→20:47)
[2018-02-14] MEDS: BACLOFEN 10 MG TAB PO SCH ×3 (09:07→20:46)
[2018-02-14] MEDS: ENOXAPARIN 40 MG/0.4 ML SYG SC SCH (09:08)
[2018-02-14] MEDS: FAMOTIDINE 20 MG TAB PO SCH ×2 (09:08→20:46)
[2018-02-14] MEDS: ALLOPURINOL 100 MG TAB PO SCH (09:08)
[2018-02-14] MEDS: GABAPENTIN 100 MG CAP PO SCH ×2 (09:08→20:46)
[2018-02-14] MEDS: PYRIDOXINE 50 MG TAB PO SCH (09:08)
[2018-02-14] MEDS: HYDROCORTISONE 1% 28 GM CR TOP SCH ×2 (09:23→20:59)
[2018-02-14] MEDS: NYSTATIN 15 GM POWDER BTL TOP SCH ×2 (09:23→21:00)
[2018-02-14] MEDS: SODIUM HYPOCHLORITE (1/40) 1 APPLIC BTL IRR SCH (09:23)
[2018-02-14] MEDS: COLLAGENASE 5 GM (UD JAR) TOP SCH ×2 (09:23)
[2018-02-14] MEDS: BALSAM PERU/CASTOR OIL 60 GM TUBE TOP SCH (09:23)
[2018-02-14] MEDS: VITAMIN A & D 5 GM OINT PACKET TOP SCH ×2 (09:23→21:00)
[2018-02-14] MEDS: LEVOFLOXACIN 500MG/D5W (PMX) 100 ML IVPB SCH (10:52)
--- NOTE | 2018-02-14 12:17 | PN ---
Date/Time of Note Date/Time of Note DATE: 02/14/18 TIME: 12:16 Assessment/Plan VTE Prophylaxis Risk score (from Nsg)>0 risk: 5 SCD applied (from Nsg): Yes Pharmacological prophylaxis: LMWH Lines/Catheters IV Catheter Type (from Nrsg): Saline Lock Urinary Cath still in place: Yes Reason Cath still needed: skin wounds contaminated by urine Assessment/Plan Hospital Course SUBJECTIVE: No acute overnight episodes. OBJECTIVE: Vital signs-see below PHYSICAL EXAM: Constitutional: Bedbound male, not in acute distress. Psych: nl mood/affect, no complaints Head: atraumatic, normocephalic Eyes: nl conjunctiva, nl sclera ENMT: mucosa pink and moist, nl external ears & nose Neck: non-tender, supple Respiratory: clear to auscultation, normal air movement Cardiovascular: nl pulses, regular rate and rhythm Gastrointestinal: non-tender, soft, bowel sounds active in all 4 quadrants. Musculoskeletal/extremities: Paraplegic. Normal pulses,no cyanosis, no edema. Neurological: Alert oriented 3,nl speech, nl strength Skin: Bilateral heel with ulcers, covered with dressing. No oozing noted on dressing. Nl turgor ASSESSMENT/PLAN: Very unfortunate 57-year-old male with a history of paraplegia secondary to spinal cord syndrome 6 months ago, who also resides in a alf, presented to the emergency room with worsening bilateral heel ulcers with foul-smelling drainage 1. Bilateral heel Decub ulcers -status post excisional debridement of bilateral heel decubitus. No evidence of osteomyelitis. -Pt with elevated ESR and CRP and. Recommend continuation of IV antibiotics for another 2 weeks. on Levaquin IV. -Continue wound care per podiatry recommendation with Dakin's irrigation/Xeroform/Kerlix dressing. 2. Paraplegia secondary to spinal disorder and back surgery 6 months ago -Exact nature of disorder and surgery unclear -Continue baclofen 3. 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 Per [facility]/IC recs, DC TB meds 4. Depression -Continue home Cymbalta 5. Hypertension -Continue Coreg 6. Debility secondary to #2. -Patient resides in a alf. 7. Chronic anemia with mild iron deficiency. -Stable H&H after 1 unit transfusion. -Continue oral iron replacement. 8. Unstageable pressure ulcers, sacral coccyx -S/o bedside debridement 02/13/18 -Continue wound care Prophylaxis:Lovenox/Pepcid Diet: Regular CODE STATUS: Full code Disposition: Continue current medical management. Patient eventually needs senior care facility placement. Patient was seen in collaboration with Dr. Guerrero. Exam/Review of Systems Vital Signs Vitals Vital Signs Date Temp Pulse Resp B/P (MAP) Pulse Ox O2 O2 Flow FiO2 Time Delivery Rate 02/14/18 98.6 72 18 124/62 96 08:00 (82) 02/11/18 Room Air 07:50 Intake and Output 02/13/18 02/13/18 02/14/18 1515:00 23:00 07:00 IntakeIntake Total 900 ml 360 ml 480 ml OutputOutput Total 800 ml 700 ml BalanceBalance 900 ml -440 ml -220 ml Medications Medications Current Medications IV Flush (NS 3 ml) 3 ml PER PROTOCOL IV ; Start 01/25/18 at 15:30 Ondansetron HCl (Zofran Inj) 4 mg Q6H PRN IV NAUSEA AND/OR VOMITING; Start 01/25/18 at 15:30 Acetaminophen (Tylenol Tab) 650 mg Q6H PRN PO PAIN LEVEL 1-3 OR FEVER; Start 01/25/18 at 15:30 Acetaminophen/ Hydrocodone Bitart ([place] (5/325)) 1 tab Q6H PRN PO MODERATE PAIN LEVEL 4-6 Last administered on 02/13/18at 21:31; Admin Dose 1 TAB; Start 01/25/18 at 15:30 Allopurinol (Zyloprim) 100 mg DAILY PO Last administered on 02/14/18at 09:08; Admin Dose 100 MG; Start 01/26/18 at 09:00 Baclofen (Lioresal) 10 mg TID PO Last administered on 02/14/18at 09:07; Admin Dose 10 MG; Start 01/25/18 at 21:00 Carvedilol (Coreg) 12.5 mg BID PO Last administered on 02/14/18at 09:07; Admin Dose 12.5 MG; Start 01/25/18 at 21:00 Duloxetine HCl (Cymbalta) 30 mg DAILY PO Last administered on 02/14/18at 09:07; Admin Dose 30 MG; Start 01/26/18 at 09:00 Famotidine (Pepcid) 20 mg BID PO Last administered on 02/14/18 09:08; Admin Dose 20 MG; Start 01/25/18 at 21:00 Folic Acid (Folic Acid) 1 mg DAILY PO Last administered on 02/14/18 09:07; Admin Dose 1 MG; Start 01/26/18 at 09:00 Gabapentin (Neurontin) 100 mg BID PO Last administered on 02/14/18 09:08; Admin Dose 100 MG; Start 01/25/18 at 21:00 Magnesium Oxide (Mag-Ox 400) 400 mg BID PO Last administered on 02/14/18 09:07; Admin Dose 400 MG; Start 01/25/18 at 21:00 Nystatin 1 applic BID TOP Last administered on 02/14/18 09:23; Admin Dose 1 APPLIC; Start 01/25/18 at 21:00 Pyridoxine HCl (Vitamin B6) 50 mg DAILY PO Last administered on 02/14/18 09:08; Admin Dose 50 MG; Start 01/26/18 at 09:00 Risperidone (Risperdal) 1 mg QHS PO Last administered on 02/13/18 21:44; Admin Dose 1 MG; Start 01/25/18 at 21:00 Zonisamide (Zonegran) 300 mg QHS PO Last administered on 02/13/18 21:28; Admin Dose 300 MG; Start 01/25/18 at 21:00 Eye Lubricant (Artificial Tears Oph) 1 drop Q8 BOTH EYES Last administered on 02/14/18 05:32; Admin Dose 1 DROP; Start 01/25/18 at 22:00 Miscellaneous Information (Pending [facility] Order For Wound Care) This patient woody... PRN PRN XX wound; Start 01/25/18 at 16:30 Vitamin A/Vitamin D (Vitamin A & D Oint) 1 applic BID TOP Last administered on 02/14/18 09:23; Admin Dose 1 APPLIC; Start 01/26/18 at 21:00 Docusate Sodium/ Ferrous Fumarate (Sangita-Sequels) 1 tab BID PO Last administered on 02/14/18 09:07; Admin Dose 1 TAB; Start 01/27/18 at 21:00 Docusate Sodium (Colace) 200 mg BID PO Last administered on 02/14/18 09:07; Admin Dose 200 MG; Start 01/27/18 at 21:00 Enoxaparin Sodium (Lovenox) 40 mg DAILY SC Last administered on 02/14/18 09:08; Admin Dose 40 MG; Start 01/28/18 at 09:00 Sodium Hypochlorite (Dakin'S (Dilute 140)) 1 applic DAILY IRR Last administered on 02/14/18 09:23; Admin Dose 1 APPLIC; Start 01/27/18 at 18:30 Collagenase (Santyl) 1 applic DAILY TOP Last administered on 02/14/18 09:23; Admin Dose 1 APPLIC; Start 01/27/18 at 17:30 Hydrocortisone (Hydrocortisone 1% Cr) 1 applic BID TOP Last administered on 02/14/18 09:23; Admin Dose 1 APPLIC; Start 01/27/18 at 21:19 Collagenase (Santyl) 1 applic DAILY TOP Last administered on 02/14/18 09:23; Admin Dose 1 APPLIC; Start 02/04/18 at 09:00 Nitroglycerin (Nitroglycerin (Sl Tab) 0.4 Mg) 1 tab Q5M PRN SL ANGINA; Start 02/05/18 at 07:00 Morphine Sulfate (morphine) 6 mg Q4H PRN PO SEVERE PAIN LEVEL 7-10 Last administered on 02/14/18at 05:31; Admin Dose 6 MG; Start 02/11/18 at 20:00 Levofloxacin/ Dextrose 100 ml @ 100 mls/hr Q24H IVPB Last administered on 01/31 07/18at 10:52; Admin Dose 100 MLS/HR; Start 02/13/18 at 11:00 Results Result Diagram: 02/13/1870102/13/18701 LIVIA ADAME NP Feb 14, 2018 12:17
[2018-02-14 14:00] VITALS: BP 118/62; PULSE 76
--- NOTE | 2018-02-14 18:51 | NUR ---
Patient with stable vitals throughout shift. tolerating current treatment regimen. Wound care completed per MD orders. Pt repositioned ever 2 hours. Refuses the wedge pillow stating it is too hard and not comfortable. RN continues to encourage use. Endorsing care to next shift.
[2018-02-14 20:00] VITALS: BP 101/58; PULSE 17; PULSE 88; RESP 17
[2018-02-14] MEDS: HYDROCODONE/APAP (5/325) TAB PO PRN (20:46)
[2018-02-14] MEDS: RISPERIDONE 1 MG TAB PO SCH (20:46)
[2018-02-14] MEDS: ZONISAMIDE 100 MG CAP PO SCH (20:47)
[2018-02-15 02:12] VITALS: BP 116/66; PULSE 82; RESP 18
[2018-02-15] MEDS: ARTIFICIAL TEARS 15 ML OPH BOTH EYES SCH ×3 (05:42→22:17)
[2018-02-15] MEDS: morphine LIQ (10 MG/5 ML) CUP PO PRN ×3 (05:46→22:15)
--- NOTE | 2018-02-15 06:48 | NUR ---
Pt is alert and oriented x4. Forgetful at times. Pt was assisted to turn side to side every two hours. Wound care done as ordered. Benavidez catheter is draining properly. Pt complained of pain. PRN pain medication given as ordered. Vital signs stable. No other acute event overnight. Pt received a bed bath this morning. Will continue monitoring pt.
[2018-02-15 08:23] VITALS: BP 117/67; PULSE 77; RESP 16
[2018-02-15] MEDS: SODIUM HYPOCHLORITE (1/40) 1 APPLIC BTL IRR SCH (09:47)
[2018-02-15] MEDS: DOCUSATE SODIUM 100 MG CAP PO SCH ×2 (09:48→22:17)
[2018-02-15] MEDS: FERROUS FUMARATE (SR) TAB PO SCH ×2 (09:50→22:17)
[2018-02-15] MEDS: DULOXETINE 30 MG CAP DR PO SCH (09:50)
[2018-02-15] MEDS: MAGNESIUM OXIDE 400 MG TAB PO SCH ×2 (09:50→22:17)
[2018-02-15] MEDS: FOLIC ACID 1 MG TAB PO SCH (09:50)
[2018-02-15] MEDS: PYRIDOXINE 50 MG TAB PO SCH (09:51)
[2018-02-15] MEDS: FAMOTIDINE 20 MG TAB PO SCH ×2 (09:51→22:17)
[2018-02-15] MEDS: ALLOPURINOL 100 MG TAB PO SCH (09:51)
[2018-02-15] MEDS: BACLOFEN 10 MG TAB PO SCH ×3 (09:51→22:16)
[2018-02-15] MEDS: GABAPENTIN 100 MG CAP PO SCH ×2 (09:51→22:16)
[2018-02-15] MEDS: ENOXAPARIN 40 MG/0.4 ML SYG SC SCH (09:54)
[2018-02-15] MEDS: HYDROCORTISONE 1% 28 GM CR TOP SCH ×2 (09:56→22:18)
[2018-02-15] MEDS: NYSTATIN 15 GM POWDER BTL TOP SCH ×2 (09:56→22:19)
[2018-02-15] MEDS: COLLAGENASE 5 GM (UD JAR) TOP SCH ×2 (09:56→09:57)
[2018-02-15] MEDS: VITAMIN A & D 5 GM OINT PACKET TOP SCH ×2 (09:57→22:18)
[2018-02-15] MEDS: BALSAM PERU/CASTOR OIL 60 GM TUBE TOP SCH (09:57)
--- NOTE | 2018-02-15 10:09 | PN ---
Date/Time of Note Date/Time of Note DATE: 02/15/18 TIME: 10:07 Assessment/Plan VTE Prophylaxis Risk score (from Nsg)>0 risk: 5 SCD applied (from Nsg): Yes Pharmacological prophylaxis: LMWH Lines/Catheters IV Catheter Type (from Nrsg): Saline Lock Urinary Cath still in place: Yes Reason Cath still needed: skin wounds contaminated by urine Assessment/Plan Hospital Course SUBJECTIVE: No acute overnight episodes. OBJECTIVE: Vital signs-see below PHYSICAL EXAM: Constitutional: Bedbound male, not in acute distress. Psych: nl mood/affect, no complaints Head: atraumatic, normocephalic Eyes: nl conjunctiva, nl sclera ENMT: mucosa pink and moist, nl external ears & nose Neck: non-tender, supple Respiratory: clear to auscultation, normal air movement Cardiovascular: nl pulses, regular rate and rhythm Gastrointestinal: non-tender, soft, bowel sounds active in all 4 quadrants. Musculoskeletal/extremities: Paraplegic. Normal pulses,no cyanosis, no edema. Neurological: Alert oriented 3,nl speech, nl strength Skin: Bilateral heel with ulcers, covered with dressing. No oozing noted on dressing. Nl turgor ASSESSMENT/PLAN: Very unfortunate 57-year-old male with a history of paraplegia secondary to spinal cord syndrome 6 months ago, who also resides in a fdc, presented to the emergency room with worsening bilateral heel ulcers with foul-smelling drainage 1. Bilateral heel Decub ulcers -status post excisional debridement of bilateral heel decubitus. No evidence of osteomyelitis. -Pt with elevated ESR and CRP.Cont. IV antibiotics for another 2 weeks per podiatry recs. -Add a pro-calcitonin level. -Continue wound care per podiatry recommendation with Dakin's irrigation/Xeroform/Kerlix dressing. 2. Paraplegia secondary to spinal disorder and back surgery 6 months ago -Exact nature of disorder and surgery unclear -Continue baclofen 3. 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 Per [facility] recs, DC TB meds 4. Depression -Continue home Cymbalta 5. Hypertension -Continue Coreg 6. Debility secondary to #2. -Patient resides in a fdc. 7. Chronic anemia with mild iron deficiency. -Stable H&H after 1 unit transfusion. -Continue oral iron replacement. 8. Unstageable pressure ulcers, sacral coccyx -S/o bedside debridement 02/13/18 -Continue wound care Prophylaxis:Lovenox/Pepcid Diet: Regular CODE STATUS: Full code Disposition: Continue current medical management. Pending fdc placement. Patient was seen in collaboration with Dr. Guerrero. Cont Hosp Indication/DC Plan: Placement Exam/Review of Systems Vital Signs Vitals Vital Signs Date Temp Pulse Resp B/P (MAP) Pulse Ox O2 O2 Flow FiO2 Time Delivery Rate 02/15/18 97.8 77 16 117/67 100 08:23 (84) 02/11/18 Room Air 07:50 Intake and Output 02/14/18 02/14/18 02/15/18 1515:00 23:00 07:00 IntakeIntake Total 710 ml 350 ml 360 ml OutputOutput Total 800 ml 1600 ml BalanceBalance 710 ml -450 ml -1240 ml Medications Medications Current Medications IV Flush (NS 3 ml) 3 ml PER PROTOCOL IV ; Start 01/25/18 at 15:30 Ondansetron HCl (Zofran Inj) 4 mg Q6H PRN IV NAUSEA AND/OR VOMITING; Start 01/25/18 at 15:30 Acetaminophen (Tylenol Tab) 650 mg Q6H PRN PO PAIN LEVEL 1-3 OR FEVER; Start 01/25/18 at 15:30 Acetaminophen/ Hydrocodone Bitart ([place] (5/325)) 1 tab Q6H PRN PO MODERATE PAIN LEVEL 4-6 Last administered on 02/14/18at 20:46; Admin Dose 1 TAB; Start 01/25/18 at 15:30 Allopurinol (Zyloprim) 100 mg DAILY PO Last administered on 02/15/18at 09:51; Admin Dose 100 MG; Start 01/26/18 at 09:00 Baclofen (Lioresal) 10 mg TID PO Last administered on 02/15/18at 09:51; Admin Dose 10 MG; Start 01/25/18 at 21:00 Carvedilol (Coreg) 12.5 mg BID PO Last administered on 02/15/18at 09:50; Admin Dose 12.5 MG; Start 01/25/18 at 21:00 Duloxetine HCl (Cymbalta) 30 mg DAILY PO Last administered on 02/15/18at 09:50; Admin Dose 30 MG; Start 01/26/18 at 09:00 Famotidine (Pepcid) 20 mg BID PO Last administered on 02/15/18 09:51; Admin Dose 20 MG; Start 01/25/18 at 21:00 Folic Acid (Folic Acid) 1 mg DAILY PO Last administered on 02/15/18 09:50; Admin Dose 1 MG; Start 01/26/18 at 09:00 Gabapentin (Neurontin) 100 mg BID PO Last administered on 02/15/18 09:51; Admin Dose 100 MG; Start 01/25/18 at 21:00 Magnesium Oxide (Mag-Ox 400) 400 mg BID PO Last administered on 02/15/18 09:50; Admin Dose 400 MG; Start 01/25/18 at 21:00 Nystatin 1 applic BID TOP Last administered on 02/15/18 09:56; Admin Dose 1 APPLIC; Start 01/25/18 at 21:00 Pyridoxine HCl (Vitamin B6) 50 mg DAILY PO Last administered on 02/15/18 09:51; Admin Dose 50 MG; Start 01/26/18 at 09:00 Risperidone (Risperdal) 1 mg QHS PO Last administered on 02/14/18 20:46; Admin Dose 1 MG; Start 01/25/18 at 21:00 Zonisamide (Zonegran) 300 mg QHS PO Last administered on 02/14/18 20:47; Admin Dose 300 MG; Start 01/25/18 at 21:00 Eye Lubricant (Artificial Tears Oph) 1 drop Q8 BOTH EYES Last administered on 02/15/18 05:42; Admin Dose 1 DROP; Start 01/25/18 at 22:00 Miscellaneous Information (Pending [facility] Order For Wound Care) This patient woody... PRN PRN XX wound; Start 01/25/18 at 16:30 Vitamin A/Vitamin D (Vitamin A & D Oint) 1 applic BID TOP Last administered on 02/15/18 09:57; Admin Dose 1 APPLIC; Start 01/26/18 at 21:00 Docusate Sodium/ Ferrous Fumarate (Sangita-Sequels) 1 tab BID PO Last administered on 02/15/18 09:50; Admin Dose 1 TAB; Start 01/27/18 at 21:00 Docusate Sodium (Colace) 200 mg BID PO Last administered on 12/16/18at 09:48; Admin Dose 200 MG; Start 01/27/18 at 21:00 Enoxaparin Sodium (Lovenox) 40 mg DAILY SC Last administered on 02/15/18at 09:54; Admin Dose 40 MG; Start 01/28/18 at 09:00 Sodium Hypochlorite (Dakin'S (Dilute )) 1 applic DAILY IRR Last administered on 02/15/18 09:47; Admin Dose 1 APPLIC; Start 01/27/18 at 18:30 Collagenase (Santyl) 1 applic DAILY TOP Last administered on 02/15/18 09:56; Admin Dose 1 APPLIC; Start 01/27/18 at 17:30 Hydrocortisone (Hydrocortisone 1% Cr) 1 applic BID TOP Last administered on 02/15/18 09:56; Admin Dose 1 APPLIC; Start 01/27/18 at 21:19 Collagenase (Santyl) 1 applic DAILY TOP Last administered on 02/15/18at 09:57; Admin Dose 1 APPLIC; Start 02/04/18 at 09:00 Nitroglycerin (Nitroglycerin (Sl Tab) 0.4 Mg) 1 tab Q5M PRN SL ANGINA; Start 02/05/18 at 07:00 Morphine Sulfate (morphine) 6 mg Q4H PRN PO SEVERE PAIN LEVEL 7-10 Last administered on 02/15/18at 05:46; Admin Dose 6 MG; Start 02/11/18 at 20:00 Levofloxacin/ Dextrose 100 ml @ 100 mls/hr Q24H IVPB Last administered on 02/14/18at 10:52; Admin Dose 100 MLS/HR; Start 02/13/18 at 11:00 Results Result Diagram: 02/13/1870102/13/18701 LIVIA ADAME NP Feb 15, 2018 10:09
[2018-02-15] MEDS: LEVOFLOXACIN 500MG/D5W (PMX) 100 ML IVPB SCH (11:12)
[2018-02-15 14:27] VITALS: BP 101/58; PULSE 85; RESP 16
[2018-02-15] MEDS: HYDROCODONE/APAP (5/325) TAB PO PRN (16:00)
--- NOTE | 2018-02-15 18:30 | NUR ---
Rt anterior foot, ankle site DTI purplish color found when take photo, change dressing this AM at 0945,wrapped with Emiliano bandage noted.measuring 5cm x3.5cm. notified to SUKUMAR Segovia, DR. Courtney is aware that applied dry gauze and wrapped with Kerlix. notified to Diet Tech ,seen skin condition.Photo taken.Changed pt's position Q2hrs.skin care done. pain med given with relief.
[2018-02-15 19:35] VITALS: BP 100/63; PULSE 87; RESP 20
[2018-02-15] MEDS: RISPERIDONE 1 MG TAB PO SCH (22:16)
[2018-02-15] MEDS: ZONISAMIDE 100 MG CAP PO SCH (22:16)
[2018-02-16 02:10] VITALS: BP 111/61; PULSE 81; RESP 18
[2018-02-16] MEDS: morphine LIQ (10 MG/5 ML) CUP PO PRN ×3 (03:33→20:55)
[2018-02-16] MEDS: ARTIFICIAL TEARS 15 ML OPH BOTH EYES SCH ×3 (05:12→22:49)
[2018-02-16] MEDS: HYDROCODONE/APAP (5/325) TAB PO PRN (05:14)
--- NOTE | 2018-02-16 06:40 | NUR ---
Pt is alert and oriented x4. Forgetful at times. Pt was assisted to turn side to side every two hours. Wound care done as ordered. Benavidez catheter is draining properly. Pt complained of pain. PRN pain medication given as ordered. Vital signs stable. No other acute event overnight. Will continue monitoring pt.
[2018-02-16 08:00] VITALS: BP_SYST 108; PULSE 65; RESP 18
--- NOTE | 2018-02-16 09:30 | NUR ---
Discussed with patient, the DTI that developed to RLE, anterior foot, explained that Dr. Martins was notified. Foot will be covered with gauze and kerlix, will be monitored. Patient verbalized understanding.
[2018-02-16] MEDS: FOLIC ACID 1 MG TAB PO SCH (09:50)
[2018-02-16] MEDS: DULOXETINE 30 MG CAP DR PO SCH (10:11)
[2018-02-16] MEDS: ALLOPURINOL 100 MG TAB PO SCH ×2 (10:11→10:15)
[2018-02-16] MEDS: PYRIDOXINE 50 MG TAB PO SCH (10:11)
[2018-02-16] MEDS: DOCUSATE SODIUM 100 MG CAP PO SCH ×2 (10:11→21:01)
[2018-02-16] MEDS: FERROUS FUMARATE (SR) TAB PO SCH ×2 (10:12→10:15)
[2018-02-16] MEDS: BACLOFEN 10 MG TAB PO SCH ×3 (10:12→21:01)
[2018-02-16] MEDS: ENOXAPARIN 40 MG/0.4 ML SYG SC SCH (10:14)
[2018-02-16] MEDS: MAGNESIUM OXIDE 400 MG TAB PO SCH ×2 (10:20→21:02)
[2018-02-16] MEDS: FAMOTIDINE 20 MG TAB PO SCH ×2 (10:23→21:01)
[2018-02-16] MEDS: GABAPENTIN 100 MG CAP PO SCH ×2 (10:23→21:02)
--- NOTE | 2018-02-16 10:47 | PN ---
Date/Time of Note Date/Time of Note DATE: 02/16/18 TIME: 10:47 Assessment/Plan VTE Prophylaxis Risk score (from Nsg)>0 risk: 5 SCD applied (from Nsg): Yes Pharmacological prophylaxis: heparin Lines/Catheters IV Catheter Type (from Nrs): Saline Lock Assessment/Plan Hospital Course 57 y/o paraplegic M patient presents to the floor with bilateral pressure heel wounds. Patient states they have been present for over two weeks. Patient states he was at another facility and his ex- also helps with the dressing changes and noticed worsening signs of the wound with foul smell. Patient denies f/c/n/v no chest pain or shortness of breath. Assessment/Plan 1) B/l decubitus heel ulcers right stage 2, left heel resolved 2) Right anterior ankle partial thickness ulcer 3) Left decubitus ankle ulcer stage 2 4) Paraplegia b/l LE 5) Peripheral neuropathy 6) HTN 7) Depression Plan: Wounds were irrigated with copious saline solution. Right foot wound cultures showing e. cloacae and enterococcus species. Daily wound dressing changes with dakins irrigation and dress with santyl, xeroform, and kerlix. Wound care orders are in place. Emphasized to nurse strict offloading of heels with pillows and offloading soft boots. X-rays reviewed and did not appreciate sign of osteomyelitis. Continue with IV abx as per recommendations. Non-invasive studies ordered: No focal hemodynamically significant stenosis in either lower extremity. Patient may follow up in outpatient [facility] wound clinic Medical decisions, treatment and plan coordinated with Dr. Courtney. Subjective 24 Hr Interval Summary Free Text/Dictation Per nursing patient developed deep tissue injury of right anterior ankle. Exam/Review of Systems Vital Signs Vitals Vital Signs Date Temp Pulse Resp B/P (MAP) Pulse Ox O2 O2 Flow FiO2 Time Delivery Rate 02/16/18 97.9 65 18 108/ 96 Room Air 08:00 Intake and Output 02/15/18 02/15/18 02/16/18 1515:00 23:00 07:00 IntakeIntake Total 370 ml 1620 ml 350 ml OutputOutput Total 951 ml 800 ml BalanceBalance 370 ml 669 ml -450 ml Exam Palpable pedal pulses 2+ pitting edema Right foot heel full thickness ulcer with fibro granular wound bed and adipose tissue appreciated, no probing to bone, no purulence noted, wound margins measures 4 x 5 x 0.3cm. No proximal streaking. Right anterior ankle serous bullae and deroofed revealed partial thickness wound 2.5 x 2.5 x 0.1cm granular, no erythema, purulence, probing to bone or proximal streaking Left heel ulcer with signs of epithelialization and some areas of desquamation Left lateral malleolus with eschar formation and upon deroofing revealed ul ceration of mixed granular necrotic wound bed measuring 0.5 x 0.5 x 0.2cm, no purulence noted or no proximal streaking. Absent muscle strength to the lower extremity Absent protective sensations to the bilateral lower extremities. Medications Medications Current Medications IV Flush (NS 3 ml) 3 ml PER PROTOCOL IV ; Start 01/25/18 at 15:30 Ondansetron HCl (Zofran Inj) 4 mg Q6H PRN IV NAUSEA AND/OR VOMITING; Start 01/25/18 at 15:30 Acetaminophen (Tylenol Tab) 650 mg Q6H PRN PO PAIN LEVEL 1-3 OR FEVER; Start 01/25/18 at 15:30 Acetaminophen/ Hydrocodone Bitart ([place] (5/325)) 1 tab Q6H PRN PO MODERATE PAIN LEVEL 4-6 Last administered on 02/16/18at 05:14; Admin Dose 1 TAB; Start 01/25/18 at 15:30 Allopurinol (Zyloprim) 100 mg DAILY PO Last administered on 02/16/18at 10:15; Admin Dose 100 MG; Start 01/26/18 at 09:00 Baclofen (Lioresal) 10 mg TID PO Last administered on 02/16/18at 10:12; Admin Dose 10 MG; Start 01/25/18 at 21:00 Carvedilol (Coreg) 12.5 mg BID PO Last administered on 02/15/18at 22:23; Admin Dose 12.5 MG; Start 01/25/18 at 21:00 Duloxetine HCl (Cymbalta) 30 mg DAILY PO Last administered on 02/16/18at 10:11; Admin Dose 30 MG; Start 01/26/18 at 09:00 Famotidine (Pepcid) 20 mg BID PO Last administered on 02/16/18at 10:23; Admin Dose 20 MG; Start 01/25/18 at 21:00 Folic Acid (Folic Acid) 1 mg DAILY PO Last administered on 02/15/18 09:50; Admin Dose 1 MG; Start 01/26/18 at 09:00 Gabapentin (Neurontin) 100 mg BID PO Last administered on 02/16/18 10:23; Admin Dose 100 MG; Start 01/25/18 at 21:00 Magnesium Oxide (Mag-Ox 400) 400 mg BID PO Last administered on 02/16/18 10:20; Admin Dose 400 MG; Start 01/25/18 at 21:00 Nystatin 1 applic BID TOP Last administered on 02/15/18 22:19; Admin Dose 1 APPLIC; Start 01/25/18 at 21:00 Pyridoxine HCl (Vitamin B6) 50 mg DAILY PO Last administered on 02/16/18 10:11; Admin Dose 50 MG; Start 01/26/18 at 09:00 Risperidone (Risperdal) 1 mg QHS PO Last administered on 02/15/18 22:16; Admin Dose 1 MG; Start 01/25/18 at 21:00 Zonisamide (Zonegran) 300 mg QHS PO Last administered on 02/15/18 22:16; Admin Dose 300 MG; Start 01/25/18 at 21:00 Eye Lubricant (Artificial Tears Oph) 1 drop Q8 BOTH EYES Last administered on 02/16/18 10:12; Admin Dose 1 DROP; Start 01/25/18 at 22:00 Miscellaneous Information (Pending [facility] Order For Wound Care) This patient woody... PRN PRN XX wound; Start 01/25/18 at 16:30 Vitamin A/Vitamin D (Vitamin A & D Oint) 1 applic BID TOP Last administered on 02/15/18 22:18; Admin Dose 1 APPLIC; Start 01/26/18 at 21:00 Docusate Sodium/ Ferrous Fumarate (Sangita-Sequels) 1 tab BID PO Last administered on 02/16/18 10:15; Admin Dose 1 TAB; Start 01/27/18 at 21:00 Docusate Sodium (Colace) 200 mg BID PO Last administered on 02/16/18 10:11; Admin Dose 200 MG; Start 01/27/18 at 21:00 Enoxaparin Sodium (Lovenox) 40 mg DAILY SC Last administered on 12/17/18at 10:14; Admin Dose 40 MG; Start 01/28/18 at 09:00 Sodium Hypochlorite (Dakin'S (Dilute 40)) 1 applic DAILY IRR Last administered on 02/15/18at 09:47; Admin Dose 1 APPLIC; Start 01/27/18 at 18:30 Collagenase (Santyl) 1 applic DAILY TOP Last administered on 02/15/18at 09:56; Admin Dose 1 APPLIC; Start 01/27/18 at 17:30 Hydrocortisone (Hydrocortisone 1% Cr) 1 applic BID TOP Last administered on 02/15/18at 22:18; Admin Dose 1 APPLIC; Start 01/27/18 at 21:19 Collagenase (Santyl) 1 applic DAILY TOP Last administered on 02/15/18 09:57; Admin Dose 1 APPLIC; Start 02/04/18 at 09:00 Nitroglycerin (Nitroglycerin (Sl Tab) 0.4 Mg) 1 tab Q5M PRN SL ANGINA; Start 02/05/18 at 07:00 Morphine Sulfate (morphine) 6 mg Q4H PRN PO SEVERE PAIN LEVEL 7-10 Last administered on 02/16/18at 10:10; Admin Dose 6 MG; Start 02/11/18 at 20:00 Levofloxacin/ Dextrose 100 ml @ 100 mls/hr Q24H IVPB Last administered on 02/15/18at 11:12; Admin Dose 100 MLS/HR; Start 02/13/18 at 11:00 Results Result Diagram: 02/13/18 0702 02/13/18 0702 LUKE BONILLA DPM Feb 16, 2018 10:47
[2018-02-16] MEDS: COLLAGENASE 5 GM (UD JAR) TOP SCH ×2 (10:48)
[2018-02-16] MEDS: BALSAM PERU/CASTOR OIL 60 GM TUBE TOP SCH (10:49)
[2018-02-16] MEDS: VITAMIN A & D 5 GM OINT PACKET TOP SCH ×2 (10:49→21:02)
--- NOTE | 2018-02-16 10:49 | PN ---
Date/Time of Note Date/Time of Note DATE: 02/16/18 TIME: 10:42 Assessment/Plan VTE Prophylaxis Risk score (from Nsg)>0 risk: 5 SCD applied (from Nsg): Yes Pharmacological prophylaxis: heparin Lines/Catheters IV Catheter Type (from Nrsg): Saline Lock Urinary Cath still in place: Yes Reason Cath still needed: urinary retention Assessment/Plan Hospital Course 57-year-old male with a history of paraplegia with pressure ulcers of b/l heels Bilateral heel Decub ulcers -status post excisional debridement of bilateral heel decubitus. No evidence of osteomyelitis. - local wound care. Per previous providers plan to complete two weeks of abx. Currently on levaquin. Seems to have been on abx since admission 01/25. We will dc abx as no evidence of current infection Anemia of chronic inflammation: - No need for supplemental iron as no evidence of deficiency, will discontinue this Paraplegia secondary to spinal disorder and back surgery 6 months ago -Exact nature of disorder and surgery unclear -Continue baclofen Depression -Continue home Cymbalta Hypertension -Continue Coreg. Consider de-escalation as BP control seems excessive Unstageable pressure ulcers, sacral coccyx -S/o bedside debridement 02/13/18 -Continue wound care Prophylaxis:Lovenox/Pepcid Diet: Regular CODE STATUS: Full code Disposition: Continue current medical management. Pending custodial placement. Subjective 24 Hr Interval Summary Free Text/Dictation The patient feels well and is without complaints He is awaiting placement in SNF Exam/Review of Systems Vital Signs Vitals Vital Signs Date Temp Pulse Resp B/P (MAP) Pulse Ox O2 O2 Flow FiO2 Time Delivery Rate 02/16/18 97.9 65 18 108/ 96 Room Air 08:00 Intake and Output 02/15/18 02/15/18 02/16/18 1515:00 23:00 07:00 IntakeIntake Total 370 ml 1620 ml 350 ml OutputOutput Total 951 ml 800 ml BalanceBalance 370 ml 669 ml -450 ml Exam Appears well, no distress RRR CTAB Soft nt nd Ext without edema Feet wrapped, i did not expose wound but noted appearance in chart Medications Medications Current Medications IV Flush (NS 3 ml) 3 ml PER PROTOCOL IV ; Start 01/25/18 at 15:30 Ondansetron HCl (Zofran Inj) 4 mg Q6H PRN IV NAUSEA AND/OR VOMITING; Start 01/25/18 at 15:30 Acetaminophen (Tylenol Tab) 650 mg Q6H PRN PO PAIN LEVEL 1-3 OR FEVER; Start 01/25/18 at 15:30 Acetaminophen/ Hydrocodone Bitart ([place] (5/325)) 1 tab Q6H PRN PO MODERATE PAIN LEVEL 4-6 Last administered on 02/16/18at 05:14; Admin Dose 1 TAB; Start 01/25/18 at 15:30 Allopurinol (Zyloprim) 100 mg DAILY PO Last administered on 02/16/18 10:15; Admin Dose 100 MG; Start 01/26/18 at 09:00 Baclofen (Lioresal) 10 mg TID PO Last administered on 02/16/18 10:12; Admin Dose 10 MG; Start 01/25/18 at 21:00 Carvedilol (Coreg) 12.5 mg BID PO Last administered on 02/15/18 22:23; Admin Dose 12.5 MG; Start 01/25/18 at 21:00 Duloxetine HCl (Cymbalta) 30 mg DAILY PO Last administered on 02/16/18 10:11; Admin Dose 30 MG; Start 01/26/18 at 09:00 Famotidine (Pepcid) 20 mg BID PO Last administered on 02/16/18 10:23; Admin Dose 20 MG; Start 01/25/18 at 21:00 Folic Acid (Folic Acid) 1 mg DAILY PO Last administered on 02/15/18at 09:50; Admin Dose 1 MG; Start 01/26/18 at 09:00 Gabapentin (Neurontin) 100 mg BID PO Last administered on 02/16/18at 10:23; Admin Dose 100 MG; Start 01/25/18 at 21:00 Magnesium Oxide (Mag-Ox 400) 400 mg BID PO Last administered on 02/16/18 10:20; Admin Dose 400 MG; Start 01/25/18 at 21:00 Nystatin 1 applic BID TOP Last administered on 02/15/18at 22:19; Admin Dose 1 APPLIC; Start 01/25/18 at 21:00 Pyridoxine HCl (Vitamin B6) 50 mg DAILY PO Last administered on 02/16/18at 10:11; Admin Dose 50 MG; Start 11/26/18 at 09:00 Risperidone (Risperdal) 1 mg QHS PO Last administered on 02/15/18 22:16; Admin Dose 1 MG; Start 01/25/18 at 21:00 Zonisamide (Zonegran) 300 mg QHS PO Last administered on 02/15/18 22:16; Admin Dose 300 MG; Start 01/25/18 at 21:00 Eye Lubricant (Artificial Tears Oph) 1 drop Q8 BOTH EYES Last administered on 02/16/18 10:12; Admin Dose 1 DROP; Start 01/25/18 at 22:00 Miscellaneous Information (Pending Santyl Order For Wound Care) This patient woody... PRN PRN XX wound; Start 01/25/18 at 16:30 Vitamin A/Vitamin D (Vitamin A & D Oint) 1 applic BID TOP Last administered on 02/15/18at 22:18; Admin Dose 1 APPLIC; Start 01/26/18 at 21:00 Docusate Sodium/ Ferrous Fumarate (Sangita-Sequels) 1 tab BID PO Last administered on 02/16/18at 10:15; Admin Dose 1 TAB; Start 01/27/18 at 21:00 Docusate Sodium (Colace) 200 mg BID PO Last administered on 02/16/18at 10:11; Admin Dose 200 MG; Start 01/27/18 at 21:00 Enoxaparin Sodium (Lovenox) 40 mg DAILY SC Last administered on 02/16/18at 10:14; Admin Dose 40 MG; Start 01/28/18 at 09:00 Sodium Hypochlorite (Dakin'S (Dilute 1/40)) 1 applic DAILY IRR Last administered on 02/15/18at 09:47; Admin Dose 1 APPLIC; Start 01/27/18 at 18:30 Collagenase (Santyl) 1 applic DAILY TOP Last administered on 02/15/18at 09:56; Admin Dose 1 APPLIC; Start 01/27/18 at 17:30 Hydrocortisone (Hydrocortisone 1% Cr) 1 applic BID TOP Last administered on 02/15/18at 22:18; Admin Dose 1 APPLIC; Start 01/27/18 at 21:19 Collagenase (Santyl) 1 applic DAILY TOP Last administered on 02/15/18at 09:57; Admin Dose 1 APPLIC; Start 02/04/18 at 09:00 Nitroglycerin (Nitroglycerin (Sl Tab) 0.4 Mg) 1 tab Q5M PRN SL ANGINA; Start 02/05/18 at 07:00 Morphine Sulfate (morphine) 6 mg Q4H PRN PO SEVERE PAIN LEVEL 7-10 Last administered on 02/16/18at 10:10; Admin Dose 6 MG; Start 02/11/18 at 20:00 Levofloxacin/ Dextrose 100 ml @ 100 mls/hr Q24H IVPB Last administered on 02/15/18at 11:12; Admin Dose 100 MLS/HR; Start 02/13/18 at 11:00 Results Result Diagram: 02/13/1802 02/13/18 0702 ANGELI MESA MD Feb 16, 2018 10:49
[2018-02-16] MEDS: HYDROCORTISONE 1% 28 GM CR TOP SCH ×2 (10:50→21:03)
[2018-02-16] MEDS: SODIUM HYPOCHLORITE (1/40) 1 APPLIC BTL IRR SCH (10:50)
[2018-02-16] MEDS: NYSTATIN 15 GM POWDER BTL TOP SCH ×2 (10:51→21:03)
--- NOTE | 2018-02-16 11:25 | NUR ---
WOUND CONSULT FOR RIGHT ANTERIOR ANKLE: 57-year-old male with a history of paraplegia reportedly for the last 6 months secondary to spinal cord syndrome presents to the ER with ulcers on both his feet. Patient awake, alert, oriented. He is able to turn with moderate assist. Benavidez cath in place. Incontinent of bowel. Patient on low air loss surface. Patient seen by Unit Control Clerk Dr. Courtney and Dr. Adan for bilateral lower extremities wounds. s/p excision and debridement on 02/13. ASSESSMENT/RECOMMENDATIONS: - Right anterior ankle stage 2 pressure injury evolved from intact deep tissue pressure injury possible related to TERRIE wrap (based on photo documentation on 02/15/18). 4.5cmx3.3cmx<0.1cm. 100% red partial thickness wound. Scant serous drainage. No odor. Dr. Adan order to cover above wound with Xeroform dressing then, wrap with dry dressing. Change daily per Linda KEITA. No TERRIE wrap. - Low air loss surface. - Reposition every 2 hours. - Float heels off bed with pillows. Discussed assessment and plan of care with Linda KEITA. RN to obtain wound care recommendations from DPM. GARFIELD Marrufo RN Addendum: 02/16/18 at 1323 by ERNESTO ARRIAGA RN s/p excision and debridement for Sacrococcyx wound on 02/13/18. - GARFIELD Marrufo RN
--- NOTE | 2018-02-16 14:39 | NUR ---
02/16/18 SNF PLACEMENT PENDING ACCEPTANCE FAXED TO [facility] DEN[facility] NO BED AVAILABLE [facility] DENIED NOT CONTRACTED WITH [facility] NO BED, NO PT NEEDS [facility] BED [facility]ED [facility] NO BED [facility] PENDING [facility] PENDING [facility] PENDING [facility] PENDING Addendum: 02/16/18 at 1519 by GENOVEVA GONSALES CM Amended: Links added.
[2018-02-16 14:41] VITALS: BP 111/62; PULSE 71; RESP 18
--- NOTE | 2018-02-16 15:36 | NUR ---
PT NOTE Therapy day number 5 Subjective Current complaint of pain Pain Scale NUMERIC Pain Intensity 7 (0-10) Patient Stated Goal for Pain Relief 0 (0-10) Pain Level Comment (B) shoulders and LBP Transfer Training Start Time 15:36 Supine to Sit Maximum Assist Bed Mobility Sit to Supine Maximum Assist Sitting Tolerance 20 min Additional Mobility Comments Bed mobility MaxA 2PA w/VCs for hand placement Transfer Training End Time 15:50 Total Transfer Training Time 14 min (8-127) Patient uses wheelchair Yes Static Sitting Balance Fair Dynamic Sitting Balance Fair minus Balance Training Static or Dynamic Start Time 15:50 Balance Training Static or Dynamic End Time 16:15 Total Balance Training Time 25 min (8-127) Safety Judgement Fair Activity Tolerance Fair Equipment Present A pump Benavidez Catheter Additional Equipment Present HEEL PROTECTOR/MICHAEL Post Treatment Pain Intensity 7 0-10 Variance Documentation SEE BELOW AND PT NOTE Total Treament Time 39 min (8-127) Total Minutes 39 Total Units 3 PT Technical Record Comment PT NOTE S: Pt stated, "Okay I am ready." Pt speaks [place]. Agreeable for PT and cleared per chief radiologic technologist Monica. O: Received pt in semi-fowlers, alert. Bed mobility MaxA 2PA w/VCs for hand placement on BR. Pt performed EOB static/dynamic sitting balance exercises: weight shifting forward/backward, side to side, and crossing multidirectional exercises. Fair sitting balance w/BUE support. Tolerated sitting 20 minutes. Assisted pt BTB w/MaxA 2PA. Left pt in comfort position, call light/phone within reach, bed alarmed, and all needs met. chief radiologic technologist Monica informed of pt's status. A: Fair tolerance to tx. Pt showed no signs of distress or SOB during or after tx. No c/o dizziness throughout tx. Limited sitting due to pt reporting increased pain and feeling fatigue. P: Continue POC and progress as tolerated.
--- NOTE | 2018-02-16 18:43 | NUR ---
Patient alert and oriented x 4. No respiratory distress noted. No complaints of pain reported at this time. Dressing change done today. safety precautions maintained. Will continue to monitor.
[2018-02-16 19:57] VITALS: BP 135/79; PULSE 88; RESP 18
[2018-02-16] MEDS: ZONISAMIDE 100 MG CAP PO SCH (21:02)
[2018-02-16] MEDS: RISPERIDONE 1 MG TAB PO SCH (21:07)
--- NOTE | 2018-02-16 23:19 | PN ---
Date/Time of Note Date/Time of Note DATE: 02/16/18 TIME: 23:16 Assessment/Plan Lines/Catheters IV Catheter Type (from Nrs): Saline Lock Assessment/Plan Chief Complaint/Hosp Course 1. Stage 3 sacral decubitus ulcer s/p excisional debridement -local care -frequent turning and off-loading, low air loss mattress -vitamin c -short term zinc -nutrition optimization -debridement prn 2. Bilateral lower extremity ulcers: -As above -Per podiatry 3. 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 Depression: -Psychiatric optimization 5. Paraplegia -Supportive 6. Hypertension -Med management 7. Hypochromic microcytic anemia: -Monitor and transfuse as needed Thank you Subjective 24 Hr Interval Summary s/p Exc debridement of sacrum 02/13. No fevers, chills, sob, congested cough, cp, palpitations, woody, dizziness, n/v/d/dysuria. Exam/Review of Systems Vital Signs Vitals Vital Signs Date Temp Pulse Resp B/P (MAP) Pulse Ox O2 O2 Flow FiO2 Time Delivery Rate 02/16/18 98.1 88 18 135/79 100 19:57 (97) 02/16/18 Room Air 14:41 Intake and Output 02/15/18 02/15/18 02/16/18 1515:00 23:00 07:00 IntakeIntake Total 370 ml 1620 ml 350 ml OutputOutput Total 951 ml 800 ml BalanceBalance 370 ml 669 ml -450 ml Exam Free Text/Dictation Constitutional: alert, oriented Psych: nl mood/affect, anxiety (Minimal) Head: normocephalic, atraumatic Eyes: nl conjunctiva, EOMI, nl sclera ENMT: nl external ears & nose, nl lips & teeth, mucosa pink and moist Neck: supple, non-tender Respiratory: normal air movement; No congested cough Cardiovascular: regular rate and rhythm; No edema Gastrointestinal: soft, non-tender; No distended Musculoskeletal: nl extremities to inspection; No nl gait and stance Extremities: normal pulses; No edema Neurological: nl mental status, nl speech Skin: nl turgor, other (Sacral unstageable: Slough and debris, no periwound erythema, no drainage; bilateral lower extremity ulcers: Wrapped) Results Result Diagram: 02/13/1870102/13/18701 DOC HOFFMAN MD Feb 16, 2018 23:19
[2018-02-17 02:14] VITALS: BP 102/63; PULSE 75; RESP 18
[2018-02-17] MEDS: ARTIFICIAL TEARS 15 ML OPH BOTH EYES SCH ×3 (05:44→22:16)
--- NOTE | 2018-02-17 06:51 | NUR ---
pt alert,oriented x4, no sob, w/ complaint of back pain one time during the shift, pain medication given as ordered,effective. repositioning done. kept heels elevated w/ pillows
[2018-02-17 08:24] VITALS: BP 105/69; PULSE 63; RESP 18
[2018-02-17] MEDS: SODIUM HYPOCHLORITE (1/40) 1 APPLIC BTL IRR SCH ×2 (09:00→16:18)
[2018-02-17] MEDS: COLLAGENASE 5 GM (UD JAR) TOP SCH ×4 (09:00→16:18)
[2018-02-17] MEDS: BALSAM PERU/CASTOR OIL 60 GM TUBE TOP SCH ×2 (09:00→16:18)
[2018-02-17] MEDS: NYSTATIN 15 GM POWDER BTL TOP SCH ×3 (09:00→21:03)
[2018-02-17] MEDS: HYDROCORTISONE 1% 28 GM CR TOP SCH ×2 (09:00→21:03)
[2018-02-17] MEDS: morphine LIQ (10 MG/5 ML) CUP PO PRN ×2 (09:47→20:58)
[2018-02-17] MEDS: DOCUSATE SODIUM 100 MG CAP PO SCH ×2 (09:49→21:01)
[2018-02-17] MEDS: BACLOFEN 10 MG TAB PO SCH ×3 (09:50→21:00)
[2018-02-17] MEDS: FOLIC ACID 1 MG TAB PO SCH (09:50)
[2018-02-17] MEDS: FAMOTIDINE 20 MG TAB PO SCH ×2 (09:50→21:01)
[2018-02-17] MEDS: MAGNESIUM OXIDE 400 MG TAB PO SCH ×2 (09:50→21:00)
[2018-02-17] MEDS: DULOXETINE 30 MG CAP DR PO SCH (09:50)
[2018-02-17] MEDS: GABAPENTIN 100 MG CAP PO SCH ×2 (09:50→21:00)
[2018-02-17] MEDS: PYRIDOXINE 50 MG TAB PO SCH (09:51)
[2018-02-17] MEDS: VITAMIN A & D 5 GM OINT PACKET TOP SCH ×2 (09:52→21:01)
[2018-02-17] MEDS: ENOXAPARIN 40 MG/0.4 ML SYG SC SCH (09:53)
--- NOTE | 2018-02-17 11:28 | PN ---
Date/Time of Note Date/Time of Note DATE: 02/17/18 TIME: 11:27 Assessment/Plan VTE Prophylaxis Risk score (from Nsg)>0 risk: 4 SCD applied (from Nsg): Yes Pharmacological prophylaxis: LMWH Lines/Catheters IV Catheter Type (from Nrsg): Saline Lock Urinary Cath still in place: Yes Reason Cath still needed: skin wounds contaminated by urine Assessment/Plan Hospital Course SUBJECTIVE: No acute overnight episodes. OBJECTIVE: Vital signs-see below PHYSICAL EXAM: Constitutional: Bedbound male, not in acute distress. Psych: nl mood/affect, no complaints Head: atraumatic, normocephalic Eyes: nl conjunctiva, nl sclera ENMT: mucosa pink and moist, nl external ears & nose Neck: non-tender, supple Respiratory: clear to auscultation, normal air movement Cardiovascular: nl pulses, regular rate and rhythm Gastrointestinal: non-tender, soft, bowel sounds active in all 4 quadrants. Musculoskeletal/extremities: Paraplegic. Normal pulses,no cyanosis, no edema. Neurological: Alert oriented 3,nl speech, nl strength Skin: Bilateral heel with ulcers, covered with dressing. No oozing noted on dressing. Nl turgor ASSESSMENT/PLAN: Very unfortunate 57-year-old male with a history of paraplegia secondary to spinal cord syndrome 6 months ago, who also resides in a fci, presented to the emergency room with worsening bilateral heel ulcers with foul-smelling drainage 1. Bilateral heel Decub ulcers -status post excisional debridement of bilateral heel decubitus. No evidence of osteomyelitis. -Pt with elevated ESR and CRP.Cont. IV antibiotics for another 2 weeks per podiatry recs. -Add a pro-calcitonin level. -Continue wound care per podiatry recommendation with Dakin's irrigation/Xeroform/Kerlix dressing. 2. Paraplegia secondary to spinal disorder and back surgery 6 months ago -Exact nature of disorder and surgery unclear -Continue baclofen 3. Depression -Continue home Cymbalta 4. Hypertension -Continue Coreg 5. Debility secondary to #2. -Patient resides in a fci. 6. Chronic anemia with mild iron deficiency. -Stable H&H after 1 unit transfusion. -Continue oral iron replacement. 7. Unstageable pressure ulcers, sacral coccyx -S/o bedside debridement 02/13/18 -Continue wound care Prophylaxis:Lovenox/Pepcid Diet: Regular CODE STATUS: Full code Disposition: Continue current medical management. Pending fci placement. Patient was seen in collaboration with Dr. Ritesh Sweet Hosp Indication/DC Plan: snf placement Exam/Review of Systems Vital Signs Vitals Vital Signs Date Temp Pulse Resp B/P (MAP) Pulse Ox O2 O2 Flow FiO2 Time Delivery Rate 02/17/18 97.8 63 18 105/69 100 08:24 (81) 02/16/18 Room Air 14:41 Intake and Output 02/16/18 02/16/18 02/17/18 1515:00 23:00 07:00 IntakeIntake Total 240 ml 450 ml 240 ml OutputOutput Total 900 ml 1300 ml BalanceBalance 240 ml -450 ml -1060 ml Medications Medications Current Medications IV Flush (NS 3 ml) 3 ml PER PROTOCOL IV ; Start 01/25/18 at 15:30 Ondansetron HCl (Zofran Inj) 4 mg Q6H PRN IV NAUSEA AND/OR VOMITING; Start 01/25/18 at 15:30 Acetaminophen (Tylenol Tab) 650 mg Q6H PRN PO PAIN LEVEL 1-3 OR FEVER; Start 01/25/18 at 15:30 Acetaminophen/ Hydrocodone Bitart ([place] (5/325)) 1 tab Q6H PRN PO MODERATE PAIN LEVEL 4-6 Last administered on 02/16/18at 05:14; Admin Dose 1 TAB; Start 01/25/18 at 15:30 Allopurinol (Zyloprim) 100 mg DAILY PO Last administered on 02/16/18at 10:15; Admin Dose 100 MG; Start 01/26/18 at 09:00 Baclofen (Lioresal) 10 mg TID PO Last administered on 02/17/18at 09:50; Admin Dose 10 MG; Start 01/25/18 at 21:00 Carvedilol (Coreg) 12.5 mg BID PO Last administered on 02/16/18at 21:02; Admin Dose 12.5 MG; Start 01/25/18 at 21:00 Duloxetine HCl (Cymbalta) 30 mg DAILY PO Last administered on 02/17/18at 09:50; Admin Dose 30 MG; Start 01/26/18 at 09:00 Famotidine (Pepcid) 20 mg BID PO Last administered on 02/17/18at 09:50; Admin Dose 20 MG; Start 01/25/18 at 21:00 Folic Acid (Folic Acid) 1 mg DAILY PO Last administered on 02/17/18 09:50; Admin Dose 1 MG; Start 01/26/18 at 09:00 Gabapentin (Neurontin) 100 mg BID PO Last administered on 02/17/18 09:50; Admin Dose 100 MG; Start 01/25/18 at 21:00 Magnesium Oxide (Mag-Ox 400) 400 mg BID PO Last administered on 02/17/18 09:50; Admin Dose 400 MG; Start 01/25/18 at 21:00 Nystatin 1 applic BID TOP Last administered on 02/16/18 21:03; Admin Dose 1 APPLIC; Start 01/25/18 at 21:00 Pyridoxine HCl (Vitamin B6) 50 mg DAILY PO Last administered on 02/17/18 09:51; Admin Dose 50 MG; Start 01/26/18 at 09:00 Risperidone (Risperdal) 1 mg QHS PO Last administered on 02/16/18 21:07; Admin Dose 1 MG; Start 01/25/18 at 21:00 Zonisamide (Zonegran) 300 mg QHS PO Last administered on 02/16/18 21:02; Admin Dose 300 MG; Start 01/25/18 at 21:00 Eye Lubricant (Artificial Tears Oph) 1 drop Q8 BOTH EYES Last administered on 02/17/18 05:44; Admin Dose 1 DROP; Start 01/25/18 at 22:00 Miscellaneous Information (Pending [facility] Order For Wound Care) This patient woody... PRN PRN XX wound; Start 01/25/18 at 16:30 Vitamin A/Vitamin D (Vitamin A & D Oint) 1 applic BID TOP Last administered on 02/17/18 09:52; Admin Dose 1 APPLIC; Start 01/26/18 at 21:00 Docusate Sodium (Colace) 200 mg BID PO Last administered on 02/17/18 09:49; Admin Dose 200 MG; Start 01/27/18 at 21:00 Enoxaparin Sodium (Lovenox) 40 mg DAILY SC Last administered on 02/17/18 09:53; Admin Dose 40 MG; Start 01/28/18 at 09:00 Sodium Hypochlorite (Dakin'S (Dilute 1/40)) 1 applic DAILY IRR Last administered on 02/16/18at 10:50; Admin Dose 1 APPLIC; Start 01/27/18 at 18:30 Collagenase (Santyl) 1 applic DAILY TOP Last administered on 02/16/18at 10:48; Admin Dose 1 APPLIC; Start 01/27/18 at 17:30 Hydrocortisone (Hydrocortisone 1% Cr) 1 applic BID TOP Last administered on 02/16/18at 21:03; Admin Dose 1 APPLIC; Start 01/27/18 at 21:19 Collagenase (Santyl) 1 applic DAILY TOP Last administered on 02/16/18at 10:48; Admin Dose 1 APPLIC; Start 02/04/18 at 09:00 Nitroglycerin (Nitroglycerin (Sl Tab) 0.4 Mg) 1 tab Q5M PRN SL ANGINA; Start 02/05/18 at 07:00 Morphine Sulfate (morphine) 6 mg Q4H PRN PO SEVERE PAIN LEVEL 7-10 Last administered on 02/17/18at 09:47; Admin Dose 6 MG; Start 02/11/18 at 20:00 Results Result Diagram: 02/13/1802 02/13/1802 LIVIA ADAME NP Feb 17, 2018 11:28
--- NOTE | 2018-02-17 11:30 | NUR ---
ADMINISTRATIVE DAYS; SNF PLACEMENT [facility] [phone] NO ACCEPTANCE OF TODAY:CONTRACTED FACILITIES LISTS FAXED TO ME REFERRALS TODAY [facility], [facility]. FAXED CERME REVIEW AND NAME OF SNFS DENIED TO [phone]. Addendum: 02/17/18 at 1135 by GENOVEVA GONSALES CM Amended: Links added.
[2018-02-17] MEDS: HYDROCODONE/APAP (5/325) TAB PO PRN (12:50)
[2018-02-17 15:39] VITALS: BP 103/57; PULSE 82; RESP 18
--- NOTE | 2018-02-17 16:45 | NUR ---
RN NOTE Wound care as per MD order. Patient tolerated well. Will continue to monitor.
--- NOTE | 2018-02-17 18:04 | PN ---
Date/Time of Note Date/Time of Note DATE: 02/17/18 TIME: 18:02 Assessment/Plan Lines/Catheters IV Catheter Type (from Nrs): Saline Lock Benavidez in Place (from Nrs): Yes Assessment/Plan Chief Complaint/Hosp Course 1. Unstageable sacral wound: -debridement prn -cont local care -frequent turning and off-loading -low air loss mattress -vitamin c -short term zinc -optimize nutrition 2. Bilateral lower extremity ulcers: -As above -Per podiatry 3. Latent TB currently s/p isoniazid 4. Depression: -Psychiatric optimization 5. Paraplegia -Supportive 6. Hypertension -Med management 7. Hypochromic microcytic anemia: -Monitor and transfuse as needed Thank you. Patient seen and examined in collaboration with Dr. Brian Angulo. Subjective 24 Hr Interval Summary No fevers, chills, sob, congested cough, cp, palpitations, woody, dizziness, n/v/d/dysuria. Pending bed placement. Exam/Review of Systems Vital Signs Vitals Vital Signs Date Temp Pulse Resp B/P (MAP) Pulse Ox O2 O2 Flow FiO2 Time Delivery Rate 02/17/18 98.2 82 18 103/57 98 15:39 (72) 02/16/18 Room Air 14:41 Intake and Output 02/16/18 02/16/18 02/17/18 1515:00 23:00 07:00 IntakeIntake Total 240 ml 450 ml 240 ml OutputOutput Total 900 ml 1300 ml BalanceBalance 240 ml -450 ml -1060 ml Exam Free Text/Dictation Constitutional: alert, oriented Psych: nl mood/affect, anxiety (Minimal) Head: normocephalic, atraumatic Eyes: nl conjunctiva, EOMI, nl sclera ENMT: nl external ears & nose, nl lips & teeth, mucosa pink and moist Neck: supple, non-tender Respiratory: normal air movement; No congested cough Cardiovascular: regular rate and rhythm; No edema Gastrointestinal: soft, non-tender; No distended Musculoskeletal: nl extremities to inspection; No nl gait and stance Extremities: normal pulses; No edema Neurological: nl mental status, nl speech Skin: nl turgor, other (Sacral packed, no periwound erythema, no drainage; bilateral lower extremity ulcers: Wrapped) Results Result Diagram: 02/13/1870102/13/18701 FERNANDO DÍAZ NP Feb 17, 2018 18:04
[2018-02-17 20:00] VITALS: BP 103/59; PULSE 84; RESP 18
[2018-02-17 20:55] VITALS: BP 119/65; PULSE 75; RESP 18
[2018-02-17] MEDS: ZONISAMIDE 100 MG CAP PO SCH (21:01)
[2018-02-17] MEDS: RISPERIDONE 1 MG TAB PO SCH (21:01)
[2018-02-18] MEDS: morphine LIQ (10 MG/5 ML) CUP PO PRN (00:57)
[2018-02-18 02:48] VITALS: BP 100/87; PULSE 80; RESP 18
[2018-02-18] MEDS: ARTIFICIAL TEARS 15 ML OPH BOTH EYES SCH ×3 (05:52→21:22)
[2018-02-18] MEDS: HYDROCODONE/APAP (5/325) TAB PO PRN ×2 (05:57→20:24)
--- NOTE | 2018-02-18 06:44 | NUR ---
pt alert,oriented x4,. no sob, w/ intermittent pain on shoulder and back, repositioning done, kept heels elevated w/ pillow. pain medication given as prescribed, effective.
[2018-02-18 08:00] VITALS: BP 106/61; PULSE 70; RESP 18
[2018-02-18] MEDS: BALSAM PERU/CASTOR OIL 60 GM TUBE TOP SCH (09:00)
[2018-02-18] MEDS: VITAMIN A & D 5 GM OINT PACKET TOP SCH ×2 (09:17→20:16)
[2018-02-18] MEDS: COLLAGENASE 5 GM (UD JAR) TOP SCH ×2 (09:17)
[2018-02-18] MEDS: FAMOTIDINE 20 MG TAB PO SCH ×2 (09:18→20:16)
[2018-02-18] MEDS: DOCUSATE SODIUM 100 MG CAP PO SCH ×2 (09:18→20:15)
[2018-02-18] MEDS: BACLOFEN 10 MG TAB PO SCH ×3 (09:18→20:16)
[2018-02-18] MEDS: DULOXETINE 30 MG CAP DR PO SCH (09:18)
[2018-02-18] MEDS: MAGNESIUM OXIDE 400 MG TAB PO SCH ×2 (09:18→20:16)
[2018-02-18] MEDS: FOLIC ACID 1 MG TAB PO SCH (09:18)
[2018-02-18] MEDS: GABAPENTIN 100 MG CAP PO SCH ×2 (09:18→20:16)
[2018-02-18] MEDS: ALLOPURINOL 100 MG TAB PO SCH (09:18)
[2018-02-18] MEDS: PYRIDOXINE 50 MG TAB PO SCH (09:19)
[2018-02-18] MEDS: ENOXAPARIN 40 MG/0.4 ML SYG SC SCH (09:21)
[2018-02-18] MEDS: HYDROCORTISONE 1% 28 GM CR TOP SCH ×2 (09:23→20:18)
[2018-02-18] MEDS: NYSTATIN 15 GM POWDER BTL TOP SCH ×2 (09:23→20:17)
[2018-02-18] MEDS: SODIUM HYPOCHLORITE (1/40) 1 APPLIC BTL IRR SCH (09:25)
--- NOTE | 2018-02-18 12:48 | PN ---
Date/Time of Note Date/Time of Note DATE: 02/18/18 TIME: 12:46 Assessment/Plan VTE Prophylaxis Risk score (from Nsg)>0 risk: 4 SCD applied (from Nsg): Yes Pharmacological prophylaxis: LMWH Lines/Catheters IV Catheter Type (from Nrsg): Saline Lock Urinary Cath still in place: Yes Reason Cath still needed: skin wounds contaminated by urine Assessment/Plan Hospital Course SUBJECTIVE: No acute overnight episodes. OBJECTIVE: Vital signs-see below PHYSICAL EXAM: Constitutional: Bedbound male, not in acute distress. Psych: nl mood/affect, no complaints Head: atraumatic, normocephalic Eyes: nl conjunctiva, nl sclera ENMT: mucosa pink and moist, nl external ears & nose Neck: non-tender, supple Respiratory: clear to auscultation, normal air movement Cardiovascular: nl pulses, regular rate and rhythm Gastrointestinal: non-tender, soft, bowel sounds active in all 4 quadrants. Musculoskeletal/extremities: Paraplegic. Normal pulses,no cyanosis, no edema. Neurological: Alert oriented 3,nl speech, nl strength Skin: Bilateral heel with ulcers, covered with dressing. No oozing noted on dressing. Nl turgor ASSESSMENT/PLAN: Very unfortunate 57-year-old male with a history of paraplegia secondary to spinal cord syndrome 6 months ago, who also resides in a fpc, presented to the emergency room with worsening bilateral heel ulcers with foul-smelling drainage 1. Bilateral heel Decub ulcers -status post excisional debridement of bilateral heel decubitus. No evidence of osteomyelitis. -Pt with elevated ESR and CRP.Cont. IV antibiotics for another 2 weeks per podiatry recs. -f/u pro-calcitonin level. -Continue wound care per podiatry recommendation with Dakin's irrigation/Xeroform/Kerlix dressing. 2. Paraplegia secondary to spinal disorder and back surgery 6 months ago -Exact nature of disorder and surgery unclear -Continue baclofen 3. Depression -Continue home Cymbalta 4. Hypertension -Continue Coreg 5. Debility secondary to #2. -Patient resides in a fpc. 6. Chronic anemia with mild iron deficiency. -Stable H&H after 1 unit transfusion. -Continue oral iron replacement. 7. Unstageable pressure ulcers, sacral coccyx -S/o bedside debridement 02/13/18 -Continue wound care Prophylaxis:Lovenox/Pepcid Diet: Regular CODE STATUS: Full code Disposition: Continue current medical management. Pending fpc placement. Patient was seen in collaboration with Dr. Guzman. Exam/Review of Systems Vital Signs Vitals Vital Signs Date Temp Pulse Resp B/P (MAP) Pulse Ox O2 O2 Flow FiO2 Time Delivery Rate 02/18/18 98.8 70 18 106/61 98 08:00 (76) 02/16/18 Room Air 14:41 Intake and Output 02/17/18 02/17/18 02/18/18 1515:00 23:00 07:00 IntakeIntake Total 710 ml 360 ml 500 ml OutputOutput Total 1100 ml 800 ml BalanceBalance 710 ml -740 ml -300 ml LIVIA ADAME NP Feb 18, 2018 12:47
--- NOTE | 2018-02-18 13:04 | NUR ---
NURSE NOTE: Spoke to Dex from lab dept regarding procalcitonin lab work that was done since 02/15, he states it is still pending and to follow-up again tomorrow.
[2018-02-18 14:00] VITALS: BP 119/90; PULSE 68; RESP 18
--- NOTE | 2018-02-18 17:25 | PN ---
Date/Time of Note Date/Time of Note DATE: 02/18/18 TIME: 17:24 Assessment/Plan Lines/Catheters IV Catheter Type (from Nrs): Saline Lock Benavidez in Place (from Nrs): Yes Assessment/Plan Chief Complaint/Hosp Course 1. Unstageable sacral wound: -debridement prn -cont local care> Santyl -frequent turning and off-loading -low air loss mattress -vitamin c -short term zinc -optimize nutrition 2. Bilateral lower extremity ulcers: -As above -Per podiatry 3. Latent TB currently s/p isoniazid 4. Depression: -Psychiatric optimization 5. Paraplegia -Supportive 6. Hypertension -Med management 7. Hypochromic microcytic anemia: -Monitor and transfuse as needed Thank you. Patient seen and examined in collaboration with Dr. Brian Angulo. Subjective 24 Hr Interval Summary No fevers, chills, sob, congested cough, cp, palpitations, woody, dizziness, nause a, vomiting, diarrhea, dysuria, excessive wound drainage or odor. Exam/Review of Systems Vital Signs Vitals Vital Signs Date Temp Pulse Resp B/P (MAP) Pulse Ox O2 O2 Flow FiO2 Time Delivery Rate 02/18/18 97.8 68 18 119/90 96 14:00 (100) 02/16/18 Room Air 14:41 Intake and Output 02/17/18 02/17/18 02/18/18 1414:59 22:59 06:59 IntakeIntake Total 710 ml 360 ml 500 ml OutputOutput Total 1100 ml 800 ml BalanceBalance 710 ml -740 ml -300 ml Exam Free Text/Dictation Constitutional: alert, oriented Psych: nl mood/affect, anxiety (Minimal) Head: normocephalic, atraumatic Eyes: nl conjunctiva, EOMI, nl sclera ENMT: nl external ears & nose, nl lips & teeth, mucosa pink and moist Neck: supple, non-tender Respiratory: normal air movement; No congested cough Cardiovascular: regular rate and rhythm; No edema Gastrointestinal: soft, non-tender; No distended Musculoskeletal: nl extremities to inspection; No nl gait and stance Extremities: normal pulses; No edema Neurological: nl mental status, nl speech Skin: nl turgor, other (Sacral packed, no periwound erythema, no drainage; bilateral lower extremity ulcers: Wrapped) FERNANDO DÍAZ DIRECTOR [facility] Feb 18, 2018 17:25
--- NOTE | 2018-02-18 18:31 | NUR ---
NURSE NOTE: NO ACUTE CHANGES. NO SIGNS OF DISTRESS. NO COMPLAINTS OF PAIN. TURN EVERY 2 HRS. PT DRESSING CHANGES WERE PERFORMED ORDERED. BED ALARM ON. CALL LIGHT WITHIN REACH.
[2018-02-18 19:30] VITALS: BP 108/66; PULSE 96; RESP 18
[2018-02-18] MEDS: ZONISAMIDE 100 MG CAP PO SCH (20:15)
[2018-02-18] MEDS: RISPERIDONE 1 MG TAB PO SCH (20:16)
[2018-02-18 20:21] VITALS: BP 118/69; PULSE 93
[2018-02-19 02:05] VITALS: BP 109/64; PULSE 64; RESP 18
[2018-02-19] MEDS: morphine LIQ (10 MG/5 ML) CUP PO PRN ×4 (02:40→21:58)
[2018-02-19] MEDS: HYDROCODONE/APAP (5/325) TAB PO PRN ×2 (05:57→13:34)
[2018-02-19] MEDS: ARTIFICIAL TEARS 15 ML OPH BOTH EYES SCH ×3 (05:58→22:06)
--- NOTE | 2018-02-19 06:30 | NUR ---
Patient in room asleep with no signs of distress. Vital signs stable. Patient complained of pain x2. Administered norco and morphine per MD order; patient denied pain thereafter. Dressings clean, dry, and intact at this time. No other changes noted from previous. All needs met and medications administered per MD order. Patient turned every 2 hours with heels elevated. Low air loss mattress currently in place. Safety precautions and hourly rounding currently in place until the change of shift.
[2018-02-19 08:00] VITALS: BP 118/68; PULSE 72; RESP 18
[2018-02-19] MEDS: COLLAGENASE 5 GM (UD JAR) TOP SCH ×2 (09:00→10:15)
[2018-02-19] MEDS: GABAPENTIN 100 MG CAP PO SCH ×2 (09:48→21:59)
[2018-02-19] MEDS: DOCUSATE SODIUM 100 MG CAP PO SCH ×2 (09:49→21:59)
[2018-02-19] MEDS: FOLIC ACID 1 MG TAB PO SCH (09:49)
[2018-02-19] MEDS: PYRIDOXINE 50 MG TAB PO SCH (09:49)
[2018-02-19] MEDS: DULOXETINE 30 MG CAP DR PO SCH (09:49)
[2018-02-19] MEDS: FAMOTIDINE 20 MG TAB PO SCH ×2 (09:49→21:59)
[2018-02-19] MEDS: VITAMIN A & D 5 GM OINT PACKET TOP SCH ×2 (09:49→22:06)
[2018-02-19] MEDS: BACLOFEN 10 MG TAB PO SCH ×3 (09:49→22:06)
[2018-02-19] MEDS: MAGNESIUM OXIDE 400 MG TAB PO SCH ×2 (09:50→21:59)
[2018-02-19] MEDS: ALLOPURINOL 100 MG TAB PO SCH (09:50)
[2018-02-19] MEDS: ENOXAPARIN 40 MG/0.4 ML SYG SC SCH (09:56)
[2018-02-19 10:00] VITALS: BP 116/68; PULSE 76; RESP 18
--- NOTE | 2018-02-19 10:13 | NUR ---
DIFFICULT SNF PLACEMENT: PER SUKUMAR BHAKTA REQUESTING TRANSPORTATION FOR WOUND CARE IN [facility] 3 X A WEEK. NO SNF ACCEPTING REFERRED BACK TO [facility]: [facility] AND POSSIBLE OP WOUND CARE @ [facility]. DISPOSITION HOME IS NOT AN OPTION PER [employer] E[employer] TECHNICIAN LEO PATIENT IS HOMELESS SINCE HE GOT FROM HIS , LOSS HOME. Addendum: 02/19/18 at 1017 by GENOVEVA GONSALES CM Amended: Links added. Addendum: 02/19/18 at 1020 by GENOVEVA GONSALES RECEIVED CALL FROM GIO [phone] , [facility] HAS A BED FOR HIM BUT [facility] PENA [phone] OF [facility] DOES NOT WANT TO AUTHORIZE [facility].
[2018-02-19] MEDS: SODIUM HYPOCHLORITE (1/40) 1 APPLIC BTL IRR SCH (10:14)
[2018-02-19] MEDS: NYSTATIN 15 GM POWDER BTL TOP SCH ×2 (10:15→22:08)
[2018-02-19] MEDS: HYDROCORTISONE 1% 28 GM CR TOP SCH ×2 (10:15→22:08)
--- NOTE | 2018-02-19 10:15 | NUR ---
Therapy day number 6 Subjective Current complaint of pain Pain Scale NUMERIC Pain Intensity 5 (0-10) Patient Stated Goal for Pain Relief 0 (0-10) Pain Level Comment B shoulder and back pain, premedicated prior to Tx Exercise Assessment Label Bilat Lower Extremity Exercise Type Passive ROM Additional Exercise Comments seated LAQ, hip abd/add PROM to BLEs Exercise Assessment Label Bilat Upper Extremity Exercise Type Active Assist ROM Additional Exercise Comments AROM/Resisted RUE, AAROM LUE shoulders elbows all planes of motion Exercise Start Time 10:10 Exercise End Time 10:20 Total Exercise Time 10 min (8-127) Transfer Training Start Time 10:20 Supine to Sit Maximum Assist Bed Mobility Sit to Supine Maximum Assist Sitting Tolerance 25 min Additional Mobility Comments Max Ax2 persons for supine<>sitting, Max Ax1 for rolling in supine Transfer Training End Time 10:50 Total Transfer Training Time 30 min (8-127) Static Sitting Balance Fair minus Dynamic Sitting Balance Poor plus Additional Balance Assessments Comments heavy reliance on UE support at EOB to maintain balance in sitting Safety Judgement Good Activity Tolerance Good Equipment Present Benavidez Catheter Additional Equipment Present HEEL PROTECTOR/MICHAEL Post Treatment Pain Intensity 6 0-10 Total Treament Time 40 min (8-127) Total Minutes 40 Total Units 3 PT Technical Record Comment PT Note: Pt cleared to work with per RN. Pt received in L sidelying, agreeable to PT Tx with encouragement. Pt reports 5/10 shoulders and back pain, premedicated prior to Tx. Treatment initiated with supine AROM/resisted RUE therex, AAROM LUE. Pt needs cueing for not holding breath upon exertion throughout treatment, able to tolerate red theraband resistance RUE shoulder and elbow. Remainder of session focused on bed mobility training and sitting balance, dynamic reaching in sitting EOB (pt refused bed<>w/c transfer). Pt requires Max Ax2 persons to complete supine<>sitting, able to maintain sitting balance with SBA to CGA for short bouts once repositioned at EOB with air mattress deflated, transitions to Mod A as pt fatigues. Pt relies on heavy use of UEs on bedrails for support to maintain balance and needs cueing for weight shifting to correct L lateral trunk lean. Pt demos increased difficulty during ant/post/lateral weight shifting coupled with UE forward and across body reaching on L side, needs Mod A for correction/returning to upright posture. Pt assisted to return to supine post-treatment and found to be soiled. Pt repositioned for comfort and LINER MACHINE OPERATOR HELPER paged for assistance, all other needs met and call light in reach. Pt will continue to benefit from skilled PT interventions 3x/week to address balance, strength, safety impairments contributing to decreased independence with functional mobility. PT advises DC to SNF for further rehab and decreased caregiver burden.
[2018-02-19] MEDS: BALSAM PERU/CASTOR OIL 60 GM TUBE TOP SCH (10:16)
--- NOTE | 2018-02-19 12:09 | PN ---
Date/Time of Note Date/Time of Note DATE: 02/19/18 TIME: 12:07 Assessment/Plan Lines/Catheters IV Catheter Type (from [facility]): Saline Lock Benavidez in Place (from Nrs): Yes Assessment/Plan Chief Complaint/Hosp Course 1. Unstageable sacral wound: Noted with stool contamination -debridement prn -cont local care> Santyl -frequent turning and off-loading -low air loss mattress -vitamin c -short term zinc -optimize nutrition -Keep area clean as possible and free from stool 2. Bilateral lower extremity ulcers: -As above -Per podiatry 3. Latent TB currently s/p isoniazid 4. Depression: -Psychiatric optimization 5. Paraplegia -Supportive 6. Hypertension -Med management 7. Hypochromic microcytic anemia: -Monitor and transfuse as needed Thank you. Patient seen and examined in collaboration with Dr. Brian Angulo. Subjective 24 Hr Interval Summary Feels well. Some stool contamination of wound noted. No fevers, chills, sob, congested cough, cp, palpitations, woody, dizziness, nausea, vomiting, diarrhea, dysuria. Exam/Review of Systems Vital Signs Vitals Vital Signs Date Temp Pulse Resp B/P (MAP) Pulse Ox O2 O2 Flow FiO2 Time Delivery Rate 02/19/18 98.8 72 18 118/68 96 08:00 (85) 02/16/18 Room Air 14:41 Intake and Output 02/18/18 02/18/18 02/19/18 1515:00 23:00 07:00 IntakeIntake Total 350 ml 630 ml 450 ml OutputOutput Total 1300 ml 1400 ml BalanceBalance 350 ml -670 ml -950 ml Exam Free Text/Dictation Constitutional: alert, oriented Psych: nl mood/affect, anxiety (Minimal) Head: normocephalic, atraumatic Eyes: nl conjunctiva, EOMI, nl sclera ENMT: nl external ears & nose, nl lips & teeth, mucosa pink and moist Neck: supple, non-tender Respiratory: normal air movement; No congested cough Cardiovascular: regular rate and rhythm; No edema Gastrointestinal: soft, non-tender; No distended Musculoskeletal: nl extremities to inspection; No nl gait and stance Extremities: normal pulses; No edema Neurological: nl mental status, nl speech Skin: nl turgor, other (Sacral min slough, no periwound erythema, no drainage; bilateral lower extremity ulcers: Wrapped) FERNANDO DÍAZ NP Feb 19, 2018 12:09
--- NOTE | 2018-02-19 13:44 | PN ---
Date/Time of Note Date/Time of Note DATE: 02/19/18 TIME: 13:43 Assessment/Plan VTE Prophylaxis Risk score (from Ns)>0 risk: 5 SCD applied (from Ns): No SCD contraindicated: other (wound) Pharmacological prophylaxis: LMWH Lines/Catheters IV Catheter Type (from Nrs): Saline Lock Urinary Cath still in place: Yes Reason Cath still needed: skin wounds contaminated by urine Assessment/Plan Hospital Course SUBJECTIVE: No acute overnight episodes. OBJECTIVE: Vital signs-see below PHYSICAL EXAM: Constitutional: Bedbound male, not in acute distress. Psych: nl mood/affect, no complaints Head: atraumatic, normocephalic Eyes: nl conjunctiva, nl sclera ENMT: mucosa pink and moist, nl external ears & nose Neck: non-tender, supple Respiratory: clear to auscultation, normal air movement Cardiovascular: nl pulses, regular rate and rhythm Gastrointestinal: non-tender, soft, bowel sounds active in all 4 quadrants. Musculoskeletal/extremities: Paraplegic. Normal pulses,no cyanosis, no edema. Neurological: Alert oriented 3,nl speech, nl strength Skin: Bilateral heel with ulcers, covered with dressing. No oozing noted on dressing. Nl turgor ASSESSMENT/PLAN: Very unfortunate 57-year-old male with a history of paraplegia secondary to spinal cord syndrome 6 months ago, who also resides in a usp, presented to the emergency room with worsening bilateral heel ulcers with foul-smelling drainage 1. Bilateral heel Decub ulcers -status post excisional debridement of bilateral heel decubitus. No evidence of osteomyelitis. -Pt with elevated ESR and CRP.Cont. IV antibiotics for another 2 weeks per podiatry recs. -f/u pro-calcitonin level. -Continue wound care per podiatry recommendation with Dakin's irrigation/Xeroform/Kerlix dressing. 2. Paraplegia secondary to spinal disorder and back surgery 6 months ago -Exact nature of disorder and surgery unclear -Continue baclofen 3. Depression -Continue home Cymbalta 4. Hypertension -Continue Coreg 5. Debility secondary to #2. -Patient resides in a usp. 6. Chronic anemia with mild iron deficiency. -Stable H&H after 1 unit transfusion. -Continue oral iron replacement. 7. Unstageable pressure ulcers, sacral coccyx -S/o bedside debridement 02/13/18 -Continue wound care Prophylaxis:Lovenox/Pepcid Diet: Regular CODE STATUS: Full code Disposition: Continue current medical management. Pending usp placement. Patient was seen in collaboration with Dr. Guzman. Exam/Review of Systems Vital Signs Vitals Vital Signs Date Temp Pulse Resp B/P (MAP) Pulse Ox O2 O2 Flow FiO2 Time Delivery Rate 02/19/18 98.8 72 18 118/68 96 08:00 (85) 02/16/18 Room Air 14:41 Intake and Output 02/18/18 02/18/18 02/19/18 1515:00 23:00 07:00 IntakeIntake Total 350 ml 630 ml 450 ml OutputOutput Total 1300 ml 1400 ml BalanceBalance 350 ml -670 ml -950 ml LIVIA ADAME V. STUMM[employer] SELECTOR Feb 19, 2018 13:44
[2018-02-19 14:00] VITALS: BP 116/68; PULSE 76; RESP 18
[2018-02-19] MEDS ORDERED: DIPHENHYDRAMINE 50 MG INJ IV PRN (14:00)
--- NOTE | 2018-02-19 14:15 | NUR ---
OT NOTE S: Pt agreeable to OT. Pt reported 8/10 christin shoulder pain O: Pt received seated up in bed and agreeable to tx. Pt declined transferring to EOB. Pt completed UB dressing and h/g with supervision. A: Pt demonstrates supervision with h/g, dressing and feeding. No further skilled OT warranted as pt is at his baseline. P: d/c OT services
--- NOTE | 2018-02-19 19:45 | NUR ---
RN NOTE: Pt denies having any allergies.
[2018-02-19 19:50] VITALS: BP 108/65; PULSE 90; RESP 18
--- NOTE | 2018-02-19 20:15 | NUR ---
pt alert,oriented x4, no sob, w/ complaint of back pain and bilat shoulder pain throughout the shift intermittently. Pain medication given as ordered,effective. repositioning done. kept heels elevated w/ pillows. Daily dsg changes done per orders. Denies any allergies.
[2018-02-19] MEDS: ZONISAMIDE 100 MG CAP PO SCH (21:54)
[2018-02-19] MEDS: RISPERIDONE 1 MG TAB PO SCH (21:59)
[2018-02-20 02:00] VITALS: BP 113/63; PULSE 83; RESP 18
--- NOTE | 2018-02-20 05:28 | NUR ---
Patient is alert and oriented x3-4, able to verbalize needs. Morphine administered for pain. Repositioned Q2H, tolerated well. Wound care provided as ordered. Heel medix applied. Benavidez catheter patent and draining. Fall precautions in place. Will continue with plan of care.
[2018-02-20] MEDS: ARTIFICIAL TEARS 15 ML OPH BOTH EYES SCH ×3 (05:34→21:45)
[2018-02-20] MEDS: HYDROCODONE/APAP (5/325) TAB PO PRN ×2 (05:35→21:45)
--- NOTE | 2018-02-20 08:10 | NUR ---
PT NOTE Therapy day number 7 Subjective Current complaint of pain Pain Scale FACES Pain Intensity 5 (0-10) Patient Stated Goal for Pain Relief 0 (0-10) Pain Level Comment generalized BUE pain, premed Pre Treatment Vital Signs Stable Yes - BP 109/62 mmHg Exercise Assessment Label Bilat Upper Extremity Exercise Type Active ROM Additional Exercise Comments AROM/Resisted REZA ALVA shoulders elbows all planes of motion Exercise Start Time 08:10 Exercise End Time 08:25 Total Exercise Time 15 min (8-127) Transfer Training Start Time 08:25 Supine to Sit Maximum Assist Bed Mobility Sit to Supine Maximum Assist Sitting Tolerance 25 min Additional Mobility Comments scooting R/L at EOB with 2P MaxA, trunk control, midline orienteation Transfer Training End Time 08:40 Total Transfer Training Time 15 min (8-127) Static Sitting Balance Fair minus Dynamic Sitting Balance Poor plus Additional Balance Assessments Comments heavy reliance on UE support at EOB to maintain balance in sitting Balance Training Static or Dynamic Start Time 08:40 Balance Training Static or Dynamic End Time 09:03 Total Balance Training Time 23 min (8-127) Safety Judgement Good Activity Tolerance Good Equipment Present Benavidez Catheter Additional Equipment Present HEEL PROTECTOR/MICHAEL Post Treatment Pain Intensity 5 0-10 Total Treament Time 53 min (8-127) Total Minutes 53 Total Units 4 PT Technical Record Comment PT NOTE S:Pt agreeable to PT, no c/o dizziness, cleared for PT RNCharmaine. RN states pt's BP was decreased after receiveing Thornton for pain this AM. O: Pt received semifowler, alert and oriented, BP 109/62 mmHg pre-tx in supine. Perfromed thera ex, balance acts, midline orientation and transfer tr seated at EOB per tech record above to improve seated balance, functional activities and participation in ADL's. Performed transfer tr at EOB including scooting L/R with Mod-MaxA +2P, continual VC/TC for COG over DANNIELLE. Pt BTB and positioned for comfort post-tx with call light and needs in reach, bed alarm armed, RN updated re pt status. A: Pt juan josé tx fairly, limited by decreased balance P: Cont POC
[2018-02-20 08:34] VITALS: BP 85/55; PULSE 92; RESP 18
[2018-02-20 08:35] VITALS: BP 99/59; PULSE 80
[2018-02-20 08:40] VITALS: BP 109/62; PULSE 79
[2018-02-20] MEDS: DOCUSATE SODIUM 100 MG CAP PO SCH ×2 (09:03→20:53)
[2018-02-20] MEDS: VITAMIN A & D 5 GM OINT PACKET TOP SCH ×2 (09:03→20:54)
[2018-02-20] MEDS: ALLOPURINOL 100 MG TAB PO SCH (09:03)
[2018-02-20] MEDS: COLLAGENASE 5 GM (UD JAR) TOP SCH ×2 (09:03→09:08)
[2018-02-20] MEDS: PYRIDOXINE 50 MG TAB PO SCH (09:04)
[2018-02-20] MEDS: DULOXETINE 30 MG CAP DR PO SCH (09:04)
[2018-02-20] MEDS: GABAPENTIN 100 MG CAP PO SCH ×2 (09:04→20:53)
[2018-02-20] MEDS: MAGNESIUM OXIDE 400 MG TAB PO SCH ×2 (09:04→20:53)
[2018-02-20] MEDS: FAMOTIDINE 20 MG TAB PO SCH ×2 (09:04→20:53)
[2018-02-20] MEDS: FOLIC ACID 1 MG TAB PO SCH (09:04)
[2018-02-20] MEDS: BACLOFEN 10 MG TAB PO SCH ×3 (09:05→20:53)
[2018-02-20] MEDS: SODIUM HYPOCHLORITE (1/40) 1 APPLIC BTL IRR SCH (09:05)
[2018-02-20] MEDS: ENOXAPARIN 40 MG/0.4 ML SYG SC SCH (09:06)
[2018-02-20] MEDS: NYSTATIN 15 GM POWDER BTL TOP SCH ×2 (09:07→20:57)
[2018-02-20] MEDS: HYDROCORTISONE 1% 28 GM CR TOP SCH ×2 (09:07→20:56)
[2018-02-20] MEDS: BALSAM PERU/CASTOR OIL 60 GM TUBE TOP SCH (09:08)
--- NOTE | 2018-02-20 09:42 | PN ---
Date/Time of Note Date/Time of Note DATE: 02/20/18 TIME: 09:40 Assessment/Plan VTE Prophylaxis Risk score (from Ns)>0 risk: 6 SCD applied (from Ns): No SCD contraindicated: other (wound) Pharmacological prophylaxis: LMWH Lines/Catheters [facility] ([facility] Saline Lock Urinary Cath still in place: Yes Reason Cath still needed: skin wounds contaminated by urine Assessment/Plan Hospital Course SUBJECTIVE: No acute overnight episodes. OBJECTIVE: Vital signs-see below PHYSICAL EXAM: Constitutional: Bedbound male, not in acute distress. Psych: nl mood/affect, no complaints Head: atraumatic, normocephalic Eyes: nl conjunctiva, nl sclera ENMT: mucosa pink and moist, nl external ears & nose Neck: non-tender, supple Respiratory: clear to auscultation, normal air movement Cardiovascular: nl pulses, regular rate and rhythm Gastrointestinal: non-tender, soft, bowel sounds active in all 4 quadrants. Musculoskeletal/extremities: Paraplegic. Normal pulses,no cyanosis, no edema. Neurological: Alert oriented 3,nl speech, nl strength Skin: Bilateral heel with ulcers, covered with dressing. No oozing noted on dressing. Nl turgor ASSESSMENT/PLAN: Very unfortunate 57-year-old male with a history of paraplegia secondary to spinal cord syndrome 6 months ago, who also resides in a correction, presented to the emergency room with worsening bilateral heel ulcers with foul-smelling drainage 1. Bilateral heel Decub ulcers -status post excisional debridement of bilateral heel decubitus. No evidence of osteomyelitis. -pro-calcitonin level still mildly elevated, recommend continuation of IV antibiotic per podiatry recommendation. Will repeat CRP/ESR in a.m. -Continue wound care per podiatry recommendation with Dakin's irrigation/Xeroform/Kerlix dressing. 2. Paraplegia secondary to spinal disorder and back surgery 6 months ago -Exact nature of disorder and surgery unclear -Continue baclofen 3. Depression -Continue home Cymbalta 4. Hypertension -Continue Coreg 5. Debility secondary to #2. -Patient resides in a correction. 6. Chronic anemia with mild iron deficiency. -Stable H&H after 1 unit transfusion. -Continue oral iron replacement. 7. Unstageable pressure ulcers, sacral coccyx -S/o bedside debridement 02/13/18 -Continue wound care Prophylaxis:Lovenox/Pepcid Diet: Regular CODE STATUS: Full code Disposition: Continue current medical management. Pending correction placement. Patient was seen in collaboration with Dr. Awad Cont Hosp Indication/DC Plan: placement Exam/Review of Systems Vital Signs Vitals Vital Signs Date Temp Pulse Resp B/P (MAP) Pulse Ox O2 O2 Flow FiO2 Time Delivery Rate 02/20/18 79 109/62 08:40 (78) 02/20/18 98.3 18 95 Room Air 08:34 Intake and Output 02/19/18 02/19/18 02/20/18 1515:00 23:00 07:00 IntakeIntake Total 480 ml 1440 ml 725 ml OutputOutput Total 2150 ml 1000 ml BalanceBalance 480 ml -710 ml -275 ml LIVIA ADAME NP Feb 20, 2018 09:42
[2018-02-20] MEDS: LEVOFLOXACIN 500MG/D5W (PMX) 100 ML IVPB SCH (09:57)
[2018-02-20 15:10] VITALS: BP 123/69; PULSE 76; RESP 18
--- NOTE | 2018-02-20 16:39 | PN ---
Date/Time of Note Date/Time of Note DATE: 02/20/18 TIME: 16:38 Assessment/Plan Lines/Catheters IV Catheter Type (from [facility]): Saline Lock Benavidez in Place (from [facility]): Yes Assessment/Plan Chief Complaint/Hosp Course 1. Unstageable sacral wound: Noted with stool contamination -debridement today -cont local care> Santyl -frequent turning and off-loading -low air loss mattress -vitamin c -short term zinc -optimize nutrition -Keep area clean as possible and free from stool 2. Bilateral lower extremity ulcers: -As above -Per podiatry 3. Latent TB currently s/p isoniazid 4. Depression: -Psychiatric optimization 5. Paraplegia -Supportive 6. Hypertension -Med management 7. Hypochromic microcytic anemia: -Monitor and transfuse as needed Thank you. Patient seen and examined in collaboration with Dr. Brian Angulo. Subjective 24 Hr Interval Summary Debridement today. No fevers, chills, sob, congested cough, cp, palpitations, woody, dizziness, n/v/d/dysuria. Exam/Review of Systems Vital Signs Vitals Vital Signs Date Temp Pulse Resp B/P (MAP) Pulse Ox O2 O2 Flow FiO2 Time Delivery Rate 02/20/18 98.0 76 18 123/69 97 Room Air 15:10 (87) Intake and Output 02/19/18 02/19/18 02/20/18 1515:00 23:00 07:00 IntakeIntake Total 480 ml 1440 ml 725 ml OutputOutput Total 2150 ml 1000 ml BalanceBalance 480 ml -710 ml -275 ml Exam Free Text/Dictation Constitutional: alert, oriented Psych: nl mood/affect, anxiety (Minimal) Head: normocephalic, atraumatic Eyes: nl conjunctiva, EOMI, nl sclera ENMT: nl external ears & nose, nl lips & teeth, mucosa pink and moist Neck: supple, non-tender Respiratory: normal air movement; No congested cough Cardiovascular: regular rate and rhythm; No edema Gastrointestinal: soft, non-tender; No distended Musculoskeletal: nl extremities to inspection; No nl gait and stance Extremities: normal pulses; No edema Neurological: nl mental status, nl speech Skin: nl turgor, other (Sacral min slough, no periwound erythema, no drainage; bilateral lower extremity ulcers: Wrapped) SUMINISTRADO,FERNANDO MANAGER [employer] Feb 20, 2018 16:39
--- NOTE | 2018-02-20 16:43 | OPR ---
Date/Time of Note Date/Time of Note DATE: 02/20/18 TIME: 16:40 Operative Report Free Text/Dictation Preoperative Diagnosis Sacral stage III decubitus ulcer with slough and necrotic tissue, 5 x 4.5 centimeters Postoperative Diagnosis Sacral stage III decubitus ulcer with slough and necrotic tissue, 5 x 4.5 cm Operation/Procedure Performed Excisional debridement of sacral skin, subcutaneous, 5 x 4.5 cm Surgeon see signature line Traffic Attendant n/a Anesthesia Type: other (None) Estimated Blood Loss: 0 - 10 ml's Transfusion none Specimen None Grafts/Implants none Complications none Pt Condition Post Procedure: stable Procedure Description Risks, benefits, alternatives reviewed and agreed upon with patient. Patient placed in his own bed in right lateral decubitus. Area was prepped and draped in sterile fashion. Timeout was performed. Using scalpel and curette, the necrotic tissue and debris of the sacral skin and subcutaneous were debrided to healthier edges. Area was irrigated with Betadine and packed with Betadine moistened gauze. Dry dressing placed to cover. FERNANDO DÍAZ NP Feb 20, 2018 16:43
--- NOTE | 2018-02-20 16:51 | NUR ---
SPOKE TO MCKAYLA MCKINNEY FOR THIS PATIENT AT BEDSIDE. PER HIM [facility] HOWEVER OF THIS TIME, HAVEN'T GOT KYLEE FROM [facility]. REFERRED TO [facility] BUT NO CALL BACK FROM THEM. AWAITS KYLEE FROM [facility] PER HIS TRIMMER HAND MCKAYLA. Addendum: 02/20/18 at 1653 by GENOVEVA GONSALES CM Amended: Links added.
--- NOTE | 2018-02-20 17:20 | NUR ---
Nurse Notes: Patient alert and oriented x 4, able to make needs known remained stable throughout the shift with no acute changes noted. No SOB or distress. assessed for pain. All due medications were given, tolerated well. IV patent and intact. Wound care treatment done as ordered. On low air loss mattress, offloaded heels with pillows. heel medix applied. Wound care done, tolerated well. Safety precautions observed, hourly rounding done, bed alarm and bed brakes on for safety. Call light answered promptly. All needs were attended and anticipated. Will continue to monitor. Will endorse accordingly to next shift for continuity of care.
[2018-02-20 19:35] VITALS: BP 115/67; PULSE 83; RESP 18
[2018-02-20] MEDS: RISPERIDONE 1 MG TAB PO SCH (20:53)
[2018-02-20] MEDS: ZONISAMIDE 100 MG CAP PO SCH (20:53)
[2018-02-21 02:35] VITALS: BP 114/65; PULSE 85; RESP 18
[2018-02-21] MEDS: ARTIFICIAL TEARS 15 ML OPH BOTH EYES SCH ×3 (05:35→22:21)
[2018-02-21] MEDS: morphine LIQ (10 MG/5 ML) CUP PO PRN ×2 (05:43→13:36)
--- NOTE | 2018-02-21 06:26 | NUR ---
End of shift Report: Awake on bed in comfortable position. No sob. No resp distress. Afebrile. Medicated for pain x2 this shift. S/P debridement of buttocks (12-18). Dressing dry and intact. Wound care rendered as ordered. Turned and reconditioned. FC intact and patent draining well with clear yellow colored urine. No hematuria noted. Turned and repositioned. Kept clean and dry. Kept comfortable at all times. Needs attended and anticipated. Pending placement. Will continue to monitor pt.Call light within reach. Will endorse accordingly.
[2018-02-21 08:00] VITALS: BP 105/63; PULSE 72; RESP 16
[2018-02-21] MEDS: COLLAGENASE 5 GM (UD JAR) TOP SCH ×2 (09:00→09:14)
[2018-02-21] MEDS: BACLOFEN 10 MG TAB PO SCH ×3 (09:14→20:36)
[2018-02-21] MEDS: HYDROCODONE/APAP (5/325) TAB PO PRN ×2 (09:15→18:20)
[2018-02-21] MEDS: GABAPENTIN 100 MG CAP PO SCH ×2 (09:15→20:36)
[2018-02-21] MEDS: ALLOPURINOL 100 MG TAB PO SCH (09:15)
[2018-02-21] MEDS: PYRIDOXINE 50 MG TAB PO SCH (09:16)
[2018-02-21] MEDS: DOCUSATE SODIUM 100 MG CAP PO SCH ×2 (09:16→20:37)
[2018-02-21] MEDS: FAMOTIDINE 20 MG TAB PO SCH ×2 (09:16→20:36)
[2018-02-21] MEDS: MAGNESIUM OXIDE 400 MG TAB PO SCH ×2 (09:16→20:37)
[2018-02-21] MEDS: DULOXETINE 30 MG CAP DR PO SCH (09:16)
[2018-02-21] MEDS: VITAMIN A & D 5 GM OINT PACKET TOP SCH ×2 (09:16→20:37)
[2018-02-21] MEDS: FOLIC ACID 1 MG TAB PO SCH (09:16)
[2018-02-21] MEDS: ENOXAPARIN 40 MG/0.4 ML SYG SC SCH (09:17)
[2018-02-21] MEDS: BALSAM PERU/CASTOR OIL 60 GM TUBE TOP SCH (09:18)
[2018-02-21] MEDS: LEVOFLOXACIN 500MG/D5W (PMX) 100 ML IVPB SCH (09:18)
[2018-02-21] MEDS: NYSTATIN 15 GM POWDER BTL TOP SCH ×2 (09:18→20:39)
[2018-02-21] MEDS: HYDROCORTISONE 1% 28 GM CR TOP SCH ×2 (09:18→20:38)
[2018-02-21] MEDS: SODIUM HYPOCHLORITE (1/40) 1 APPLIC BTL IRR SCH (09:18)
--- NOTE | 2018-02-21 13:57 | PN ---
Date/Time of Note Date/Time of Note DATE: 02/21/18 TIME: 13:53 Assessment/Plan VTE Prophylaxis Risk score (from Ns)>0 risk: 4 [place] [facility] [place] contraindicated: patient refusal Pharmacological prophylaxis: heparin Lines/Catheters IV Catheter Type (from [facility]): Saline Lock Urinary Cath still in place: Yes Reason Cath still needed: urinary retention Assessment/Plan Problems: (1) Decubitus ulcer of left heel, stage 1 Status: Chronic Comment: As per podiatric surgery. (2) Decubitus ulcer of right heel, unstageable Status: Chronic Comment: As per podiatric surgery, progressing (3) Decubitus ulcer of sacral area Status: Chronic Comment: Status post debridement by general surgery yesterday Qualifiers: Pressure injury stage: unstageable Qualified Codes: L89.150 - Pressure ulcer of sacral region, unstageable (4) Paraplegia Status: Chronic Comment: Present times 7 months. (5) Diabetes mellitus type 2 in nonobese Status: Chronic Comment: Adequate glycemic control (6) Essential hypertension Status: Chronic Comment: Doing well. Adequate control. (7) Dysthymia Status: Chronic Comment: Stable at this time (8) Latent tuberculosis Status: Chronic Comment: The patient has a negative QuantiFERON gold test. This is not an accurate diagnosis he does not have communicable diseases. Subjective 24 Hr Interval Summary Free Text/Dictation Patient reports he is feeling okay and has adequate pain relief Constitutional: no complaints Respiratory: no complaints Cardiovascular: no complaints Gastrointestinal: no complaints Exam/Review of Systems Vital Signs Vitals Vital Signs Date Temp Pulse Resp B/P (MAP) Pulse Ox O2 O2 Flow FiO2 Time Delivery Rate 02/21/18 97.7 72 16 105/63 99 Room Air 08:00 (77) Intake and Output 02/20/18 02/20/18 02/21/18 1515:00 23:00 07:00 IntakeIntake Total 980 ml 800 ml 1250 ml OutputOutput Total 1875 ml 3000 ml BalanceBalance 980 ml -1075 ml -1750 ml Exam Constitutional: alert, oriented Respiratory: clear to auscultation, normal air movement Cardiovascular: regular rate and rhythm, nl pulses BERTIN EATON MD Feb 21, 2018 13:57
[2018-02-21 14:40] VITALS: BP 105/65; PULSE 73; RESP 16
--- NOTE | 2018-02-21 14:59 | PN ---
Date/Time of Note Date/Time of Note DATE: 02/21/18 TIME: 14:59 Assessment/Plan Lines/Catheters IV Catheter Type (from [facility]): Saline Lock Benavidez in Place (from [facility]): Yes Assessment/Plan Chief Complaint/Hosp Course 1. Stage 3 necrotic wound: Noted with stool contamination s/p excisional debridement 02/20 -cont local care> Santyl -frequent turning and off-loading -low air loss mattress -vitamin c -short term zinc -optimize nutrition -keep area clean as possible and free from stool 2. Bilateral lower extremity ulcers: -As above -Per podiatry 3. Latent TB currently s/p isoniazid 4. Depression: -Psychiatric optimization 5. Paraplegia -Supportive 6. Hypertension -Med management 7. Hypochromic microcytic anemia: -Monitor and transfuse as needed Thank you, Subjective 24 Hr Interval Summary s/p Debridement 02/20. No fevers, chills, sob, congested cough, cp, palpitations, woody, dizziness, n/v/d/dysuria. Exam/Review of Systems Vital Signs Vitals Vital Signs Date Temp Pulse Resp B/P (MAP) Pulse Ox O2 O2 Flow FiO2 Time Delivery Rate 02/22/18 97.6 60 17 110/66 99 Room Air 08:15 (81) Intake and Output 02/21/18 02/21/18 02/22/18 1515:00 23:00 07:00 IntakeIntake Total 900 ml 1300 ml 400 ml OutputOutput Total 800 ml 1200 ml 750 ml BalanceBalance 100 ml 100 ml -350 ml Exam Free Text/Dictation Constitutional: alert, oriented Psych: nl mood/affect, anxiety (Minimal) Head: normocephalic, atraumatic Eyes: nl conjunctiva, EOMI, nl sclera ENMT: nl external ears & nose, nl lips & teeth, mucosa pink and moist Neck: supple, non-tender Respiratory: normal air movement; No congested cough Cardiovascular: regular rate and rhythm; No edema Gastrointestinal: soft, non-tender; No distended Musculoskeletal: nl extremities to inspection; No nl gait and stance Extremities: normal pulses; No edema Neurological: nl mental status, nl speech Skin: nl turgor, Sacral wound with packing, no periwound erythema, no drainage; bilateral lower extremity ulcers: Wrapped Results Result Diagram: 02/21/1851702/21/18517 DOC HOFFMAN MD Feb 21, 2018 14:59
--- NOTE | 2018-02-21 15:56 | NUR ---
CASE MNGT: SPOKE WITH [facility] ([phone]), SHE IS NOT ABLE TO TAKE PATIENT LONG HE HAS IV ANTIBIOTIC AND PRESSURE ULCER GREATER THAN STAGE 2, INFORMED PATIENT. WILL CONTINUE TO FOLLOW UP.
--- NOTE | 2018-02-21 17:30 | NUR ---
Found maroon colored blisters DTI in right lateral foot x2 during dressing changes. One measures 1.8x0.5cm and the other is 2.5x1cm. The dried blisters were found under the kerlix roll. Surrounding tissue intact. Area cleansed with NS and allevyn was applied. patient was informed about this.
--- NOTE | 2018-02-21 17:53 | NUR ---
Found 2 maroon colored dried blisters in right lateral foot during dressing changes. One measures 1.8x0.5cm and the other is 2.5x1cm, wounds were discovered under kerlix roll. Surrounding area intact. Patient is informed of the DTI. Area cleansed with NS and allevyn was applied. MD to be notified.
--- NOTE | 2018-02-21 18:36 | NUR ---
Pt. is alert, awake and verbally responsive. Respiration are judson and non labored. Complain of pain during this shift. Pain medication given as ordered. Tolerated well. Wound care rendered and found a new wound. Treatment rendered. Tolerated well. Pt. and MD is aware. Will endorse accordingly.
[2018-02-21 20:30] VITALS: BP 115/66; PULSE 78; RESP 18
[2018-02-21] MEDS: ZONISAMIDE 100 MG CAP PO SCH (20:36)
[2018-02-21] MEDS: RISPERIDONE 1 MG TAB PO SCH (20:37)
[2018-02-22 02:46] VITALS: BP 114/67; PULSE 77; RESP 18
[2018-02-22] MEDS: ARTIFICIAL TEARS 15 ML OPH BOTH EYES SCH ×3 (05:32→21:12)
[2018-02-22] MEDS: morphine LIQ (10 MG/5 ML) CUP PO PRN (05:38)
--- NOTE | 2018-02-22 06:06 | NUR ---
pt alert,oriented x4, no sob, Addendum: 02/22/18 at 0610 by YVETTE ROBISON RN pt alert,oriented x4, no sob, w/ complaint of pain on shoulders and back, repositioning done, pain medication given as ordered,effective. kept heels elevated w/ pillows alternate w/ boot helix. w/ dry and intact dressing.
[2018-02-22 08:15] VITALS: BP 110/66; PULSE 60; RESP 17
[2018-02-22] MEDS: HYDROCORTISONE 1% 28 GM CR TOP SCH ×2 (09:00→21:11)
[2018-02-22] MEDS: COLLAGENASE 5 GM (UD JAR) TOP SCH ×2 (09:00)
[2018-02-22] MEDS: LEVOFLOXACIN 500MG/D5W (PMX) 100 ML IVPB SCH (10:00)
[2018-02-22] MEDS: MAGNESIUM OXIDE 400 MG TAB PO SCH ×2 (10:01→21:11)
[2018-02-22] MEDS: FOLIC ACID 1 MG TAB PO SCH (10:01)
[2018-02-22] MEDS: FAMOTIDINE 20 MG TAB PO SCH ×2 (10:01→21:11)
[2018-02-22] MEDS: PYRIDOXINE 50 MG TAB PO SCH (10:01)
[2018-02-22] MEDS: DULOXETINE 30 MG CAP DR PO SCH (10:02)
[2018-02-22] MEDS: DOCUSATE SODIUM 100 MG CAP PO SCH ×2 (10:02→21:11)
[2018-02-22] MEDS: BACLOFEN 10 MG TAB PO SCH ×3 (10:02→21:11)
[2018-02-22] MEDS: GABAPENTIN 100 MG CAP PO SCH ×2 (10:02→21:11)
[2018-02-22] MEDS: ALLOPURINOL 100 MG TAB PO SCH (10:02)
[2018-02-22] MEDS: ENOXAPARIN 40 MG/0.4 ML SYG SC SCH (10:04)
[2018-02-22] MEDS: VITAMIN A & D 5 GM OINT PACKET TOP SCH ×2 (10:05→21:11)
[2018-02-22] MEDS: NYSTATIN 15 GM POWDER BTL TOP SCH ×2 (10:08→21:11)
[2018-02-22] MEDS: SODIUM HYPOCHLORITE (1/40) 1 APPLIC BTL IRR SCH (10:08)
[2018-02-22] MEDS: BALSAM PERU/CASTOR OIL 60 GM TUBE TOP SCH (10:09)
--- NOTE | 2018-02-22 13:00 | PN ---
Date/Time of Note Date/Time of Note DATE: 02/22/18 TIME: 12:58 Assessment/Plan VTE Prophylaxis Risk score (from Ns)>0 risk: 5 SCD applied (from Ns): No SCD contraindicated: other Pharmacological prophylaxis: LMWH Lines/Catheters IV Catheter Type (from [facility] Saline Lock Urinary Cath still in place: Yes Reason Cath still needed: urinary retention Assessment/Plan Problems: (1) Paraplegia Status: Chronic Comment: The patient previously had been at [facility] and then was transferred to other facilities. Placement is turning to be a somewhat difficult issue. Continue to try (2) Decubitus ulcer of sacral area Status: Chronic Comment: Status post debridement. Qualifiers: Pressure injury stage: stage 3 Qualified Codes: L89.153 - Pressure ulcer of sacral region, stage 3 (3) Decubitus ulcer of left heel, stage 1 Status: Chronic Comment: As per podiatry (4) Decubitus ulcer of right heel, unstageable Status: Chronic Comment: As per podiatry (5) Essential hypertension Status: Chronic Comment: Adequate control (6) Diabetes mellitus type 2 in nonobese Status: Chronic Comment: Adequate control Subjective 24 Hr Interval Summary Free Text/Dictation Patient reports he is without complaints although he is very happy that he does not have a place to be discharged to. Reports he would prefer to stay at the acute care hospital Constitutional: no complaints Respiratory: no complaints Cardiovascular: no complaints Gastrointestinal: no complaints Exam/Review of Systems Vital Signs Vitals Vital Signs Date Temp Pulse Resp B/P (MAP) Pulse Ox O2 O2 Flow FiO2 Time Delivery Rate 02/22/18 97.6 60 17 110/66 99 Room Air 08:15 (81) Intake and Output 02/21/18 02/21/18 02/22/18 1515:00 23:00 07:00 IntakeIntake Total 900 ml 1300 ml 400 ml OutputOutput Total 800 ml 1200 ml 750 ml BalanceBalance 100 ml 100 ml -350 ml Exam Constitutional: alert, oriented Respiratory: clear to auscultation, normal air movement Cardiovascular: regular rate and rhythm, nl pulses Gastrointestinal: soft, nl liver, spleen, non-tender BERTIN EATON MD Feb 22, 2018 13:00
--- NOTE | 2018-02-22 13:21 | PN ---
Date/Time of Note Date/Time of Note DATE: 02/22/18 TIME: 13:20 Assessment/Plan Lines/Catheters IV Catheter Type (from [facility]): Saline Lock Benavidez in Place (from [facility]): Yes Assessment/Plan Chief Complaint/Hosp Course 1. Stage 3 necrotic wound: Noted with stool contamination s/p excisional debridement 02/20 -cont local care> Santyl -frequent turning and off-loading -low air loss mattress -vitamin c -short term zinc -optimize nutrition -keep area clean as possible and free from stool 2. Bilateral lower extremity ulcers: -As above -Per podiatry 3. Latent TB currently s/p isoniazid 4. Depression: -Psychiatric optimization 5. Paraplegia -Supportive 6. Hypertension -Med management 7. Hypochromic microcytic anemia: -Monitor and transfuse as needed Thank you, Subjective 24 Hr Interval Summary s/p Debridement 02/20. No fevers, chills, sob, congested cough, cp, palpitations, woody, dizziness, n/v/d/dysuria. Exam/Review of Systems Vital Signs Vitals Vital Signs Date Temp Pulse Resp B/P (MAP) Pulse Ox O2 O2 Flow FiO2 Time Delivery Rate 02/22/18 97.6 60 17 110/66 99 Room Air 08:15 (81) Intake and Output 02/21/18 02/21/18 02/22/18 1515:00 23:00 07:00 IntakeIntake Total 900 ml 1300 ml 400 ml OutputOutput Total 800 ml 1200 ml 750 ml BalanceBalance 100 ml 100 ml -350 ml Exam Free Text/Dictation Constitutional: alert, oriented Psych: nl mood/affect, anxiety (Minimal) Head: normocephalic, atraumatic Eyes: nl conjunctiva, EOMI, nl sclera ENMT: nl external ears & nose, nl lips & teeth, mucosa pink and moist Neck: supple, non-tender Respiratory: normal air movement; No congested cough Cardiovascular: regular rate and rhythm; No edema Gastrointestinal: soft, non-tender; No distended Musculoskeletal: nl extremities to inspection; No nl gait and stance Extremities: normal pulses; No edema Neurological: nl mental status, nl speech Skin: nl turgor, Sacral wound with packing, no periwound erythema, no drainage; bilateral lower extremity ulcers: Wrapped Results Result Diagram: 02/21/1851702/21/18517 DOC HOFFMAN MD Feb 22, 2018 13:21
[2018-02-22] MEDS: HYDROCODONE/APAP (5/325) TAB PO PRN ×2 (14:39→21:10)
[2018-02-22 15:31] VITALS: BP 115/67; PULSE 62; RESP 17
--- NOTE | 2018-02-22 18:25 | NUR ---
Continues ATB tx via IVPB for sacral wound infection no adverse side effects, routine wound tx done and kept clean dry.Also repositioned every 2 hours and assisted all needs. No sob , no acute distress, mathur catheter intact no hematuria and VS within range will continue POC
[2018-02-22 20:14] VITALS: BP 116/66; PULSE 68; RESP 18
[2018-02-22] MEDS: ZONISAMIDE 100 MG CAP PO SCH (21:11)
[2018-02-22] MEDS: RISPERIDONE 1 MG TAB PO SCH (21:11)
[2018-02-23 02:33] VITALS: BP 93/58; PULSE 70; RESP 18
[2018-02-23] MEDS: HYDROCODONE/APAP (5/325) TAB PO PRN ×3 (05:14→23:41)
[2018-02-23] MEDS: ARTIFICIAL TEARS 15 ML OPH BOTH EYES SCH ×3 (05:15→20:53)
--- NOTE | 2018-02-23 06:31 | NUR ---
Pt alert and oriented, all needs attended to. No acute changes noted. Wound dressing changer per orders, pt tolerated. Turned and repositioned every 2 hours. Bed in lowest position, call light within reach
[2018-02-23 08:19] VITALS: BP 108/63; PULSE 61; RESP 18
--- NOTE | 2018-02-23 08:51 | PN ---
Date/Time of Note Date/Time of Note DATE: 02/23/18 TIME: 08:50 Assessment/Plan VTE Prophylaxis Risk score (from Ns)>0 risk: 6 SCD applied (from Ns): No SCD contraindicated: other (WOUNDS) Pharmacological prophylaxis: LMWH Lines/Catheters IV Catheter Type (from Nrs): Saline Lock Urinary Cath still in place: Yes Reason Cath still needed: skin wounds contaminated by urine Assessment/Plan Hospital Course SUBJECTIVE: No acute overnight episodes. OBJECTIVE: Vital signs-see below PHYSICAL EXAM: Constitutional: Bedbound male, not in acute distress. Psych: nl mood/affect, no complaints Head: atraumatic, normocephalic Eyes: nl conjunctiva, nl sclera ENMT: mucosa pink and moist, nl external ears & nose Neck: non-tender, supple Respiratory: clear to auscultation, normal air movement Cardiovascular: nl pulses, regular rate and rhythm Gastrointestinal: non-tender, soft, bowel sounds active in all 4 quadrants. Musculoskeletal/extremities: Paraplegic. Normal pulses,no cyanosis, no edema. Neurological: Alert oriented 3,nl speech, nl strength Skin: Bilateral heel with ulcers, covered with dressing. No oozing noted on dressing. Nl turgor ASSESSMENT/PLAN: Very unfortunate 57-year-old male with a history of paraplegia secondary to spinal cord syndrome 6 months ago, who also resides in a fpc, presented to the emergency room with worsening bilateral heel ulcers with foul-smelling drainage 1. Bilateral heel Decub ulcers -status post excisional debridement of bilateral heel decubitus. No evidence of osteomyelitis. -pro-calcitonin level still mildly elevated, recommend continuation of IV antibiotic per podiatry recommendation. Repeat CRP/ESR trending down. -Continue wound care per podiatry recommendation with Dakin's irrigation/Xeroform/Kerlix dressing. 2. Paraplegia secondary to spinal disorder and back surgery 6 months ago -Exact nature of disorder and surgery unclear -Continue baclofen 3. Depression -Continue home Cymbalta 4. Hypertension -Continue Coreg 5. Debility secondary to #2. -Patient resides in a fpc. 6. Chronic anemia with mild iron deficiency. -Stable H&H after 1 unit transfusion. -Continue oral iron replacement. 7. Unstageable pressure ulcers, sacral coccyx -S/o bedside debridement 12/14/18 -Continue wound care Prophylaxis:Lovenox/Pepcid Diet: Regular CODE STATUS: Full code Disposition: Continue current medical management. Pending fpc placement. Patient was seen in collaboration with Dr. Ritesh Sweet Hosp Indication/DC Plan: SNF PLACEMENT Exam/Review of Systems Vital Signs Vitals Vital Signs Date Temp Pulse Resp B/P (MAP) Pulse Ox O2 O2 Flow FiO2 Time Delivery Rate 02/23/18 97.5 61 18 108/63 98 08:19 (78) 02/22/18 Room Air 15:31 Intake and Output 02/22/18 02/22/18 02/23/18 1515:00 23:00 07:00 IntakeIntake Total 100 ml 600 ml OutputOutput Total 2000 ml BalanceBalance 100 ml 600 ml -2000 ml LIVIA ADAME NP Feb 23, 2018 08:51
[2018-02-23] MEDS: BALSAM PERU/CASTOR OIL 60 GM TUBE TOP SCH (09:00)
[2018-02-23] MEDS: COLLAGENASE 5 GM (UD JAR) TOP SCH ×2 (09:00)
[2018-02-23] MEDS: SODIUM HYPOCHLORITE (1/40) 1 APPLIC BTL IRR SCH (09:00)
[2018-02-23] MEDS: DOCUSATE SODIUM 100 MG CAP PO SCH ×2 (09:41→20:53)
[2018-02-23] MEDS: DULOXETINE 30 MG CAP DR PO SCH (09:42)
[2018-02-23] MEDS: GABAPENTIN 100 MG CAP PO SCH ×2 (09:42→20:54)
[2018-02-23] MEDS: ALLOPURINOL 100 MG TAB PO SCH (09:42)
[2018-02-23] MEDS: BACLOFEN 10 MG TAB PO SCH ×3 (09:42→20:53)
[2018-02-23] MEDS: FAMOTIDINE 20 MG TAB PO SCH ×2 (09:42→20:53)
[2018-02-23] MEDS: PYRIDOXINE 50 MG TAB PO SCH (09:42)
[2018-02-23] MEDS: MAGNESIUM OXIDE 400 MG TAB PO SCH ×2 (09:42→20:54)
[2018-02-23] MEDS: FOLIC ACID 1 MG TAB PO SCH (09:42)
[2018-02-23] MEDS: VITAMIN A & D 5 GM OINT PACKET TOP SCH ×2 (09:43→20:52)
[2018-02-23] MEDS: ENOXAPARIN 40 MG/0.4 ML SYG SC SCH (09:46)
[2018-02-23] MEDS: HYDROCORTISONE 1% 28 GM CR TOP SCH ×2 (10:08→21:01)
[2018-02-23] MEDS: NYSTATIN 15 GM POWDER BTL TOP SCH ×2 (10:09→21:02)
--- NOTE | 2018-02-23 10:54 | NUR ---
WOUND CARE FOLLOW UP: Patient last seen by wound nurse 02/16/18. 57-year-old male with a history of paraplegia reportedly for the last 6 months secondary to spinal cord syndrome presents to the ER with ulcers on both his feet. Patient awake, alert, oriented. He is able to turn with moderate assist. Benavidez cath in place. Incontinent of bowel. Patient on low air loss surface. Patient seen by [facility] Dr. Courtney and Dr. Adan for bilateral lower extremities wounds. ASSESSMENT/RECOMMENDATIONS: - Right anterior ankle healing stage 2 pressure injury evolved from intact deep tissue pressure injury possible related to TERRIE wrap (based on photo documentation on 02/15/18). 4.5cmx3.3cmx<0.1cm. 100% red partial thickness wound with epithelization tissue. Scant serous drainage. No odor. Continue Xeroform dressing Change daily Per DPM order. - Right lateral blood blisters x 2. Proximal blister measured [id number]. Distal blister measured [id number]. Intact blood blisters. Periwound intact. No drainage. No odor. There is no pressure noted to the area at this time. Right foot wrap with Kerlix. Continue to observe area. Discussed with Dr. Adan. He will follow up with patient today and assess the blood blisters area. Recommended to apply Venelex ointment BID and cover with foam dressing. Please follow wound care order per Dr. Cortez once DPM sees the patient. Please notify MD and wound nurse if any change of wound condition. - Low air loss surface. - Reposition every 2 hours. - Float heels off bed by alternating HeelMedix and pillows every 2 hours. Apply Straps loosely. Discussed assessment and plan of care with RNTaz. RN to obtain wound care recommendations from DPM. Delilah Ferreira, BSN RN CWOCN
[2018-02-23] MEDS: LEVOFLOXACIN 500MG/D5W (PMX) 100 ML IVPB SCH (10:56)
--- NOTE | 2018-02-23 11:20 | NUR ---
PT NOTE Therapy day number 8 Subjective Current complaint of pain Pain Scale NUMERIC Pain Intensity 7 (0-10) Patient Stated Goal for Pain Relief 0 (0-10) Pain Level Comment (B) Shoulder pain and back pain Exercise Assessment Label Bilat Lower Extremity Exercise Type Passive ROM Additional Exercise Comments Supine: PROM, heel slides, hip abd/add and manual stretching in all planes Exercise Start Time 11:20 Exercise End Time 11:50 Total Exercise Time 30 min (8-127) Activity Tolerance Fair Equipment Present Benavidez Catheter Post Treatment Pain Intensity 7 0-10 Variance Documentation SEE BELOW AND PT NOTE Total Treament Time 30 min (8-127) Total Minutes 30 Total Units 2 PT Technical Record Comment PT NOTE S: Pt stated, "Both my shoulders and back are hurting." Pt speaks Jordanian. Agreeable for PT and cleared per NEELA Mcghee. O: Received pt in semi-fowlers, alert w/friends present in room. This therapist performed PROM and manual stretching to BLE in all planes. Left pt in comfort position, call light/phone within reach, bed alarmed, and all needs met. NEELA Mcghee informed of pt's status. A: Fair tolerance to tx. Pt showed no signs of distress or SOB during or after tx. No c/o dizziness or nausea throughout tx. Limited tx due to pain. No EOB activities today due to unavailable 2PA. Recommend w/c cushion due to sacral wounds. P: Continue POC and progress as tolerated.
--- NOTE | 2018-02-23 12:37 | PN ---
Date/Time of Note Date/Time of Note DATE: 02/23/18 TIME: 12:35 Assessment/Plan Lines/Catheters IV Catheter Type (from [facility]): Saline Lock Benavidez in Place (from [facility]): Yes Assessment/Plan Chief Complaint/Hosp Course 1. Stage 3 necrotic wound: Noted with stool contamination s/p excisional debridement 02/20 -cont local care> Santyl -frequent turning and off-loading -low air loss mattress -vitamin c -short term zinc -optimize nutrition -keep area clean as possible and free from stool 2. Bilateral lower extremity ulcers: -As above -Per podiatry 3. Hypochromic microcytic anemia: -Monitor and transfuse as needed 4. Depression: -Psychiatric optimization 5. Paraplegia -Supportive 6. Hypertension -Med management Thank you. Patient seen and examined in collaboration with Dr. Brian Angulo. Subjective 24 Hr Interval Summary Feels well. No fevers, chills, sob, congested cough, cp, palpitations, woody, dizziness, nausea, vomiting, diarrhea, dysuria. Exam/Review of Systems Vital Signs Vitals Vital Signs Date Temp Pulse Resp B/P (MAP) Pulse Ox O2 O2 Flow FiO2 Time Delivery Rate 02/23/18 97.5 61 18 108/63 98 08:19 (78) 02/22/18 Room Air 15:31 Intake and Output 02/22/18 02/22/18 02/23/18 1515:00 23:00 07:00 IntakeIntake Total 100 ml 600 ml OutputOutput Total 2000 ml BalanceBalance 100 ml 600 ml -2000 ml Exam Free Text/Dictation Constitutional: alert, oriented Psych: nl mood/affect, anxiety (Minimal) Head: normocephalic, atraumatic Eyes: nl conjunctiva, EOMI, nl sclera ENMT: nl external ears & nose, nl lips & teeth, mucosa pink and moist Neck: supple, non-tender Respiratory: normal air movement; No congested cough Cardiovascular: regular rate and rhythm; No edema Gastrointestinal: soft, non-tender; No distended Musculoskeletal: nl extremities to inspection; No nl gait and stance Extremities: normal pulses; No edema Neurological: nl mental status, nl speech Skin: nl turgor, Sacral wound with packing, no periwound erythema, no drainage; bilateral lower extremity ulcers: Wrapped Results Result Diagram: 02/21/18 0518 02/21/18 0518 FERNANDO DÍAZ NP Feb 23, 2018 12:36
--- NOTE | 2018-02-23 12:43 | NUR ---
SNF PLACEMENT UPDATE: REFERRED TO : [facility] Addendum: 02/23/18 at 1245 by GENOVEVA GONSALES CM Amended: Links added.
[2018-02-23 15:00] VITALS: BP 107/67; PULSE 88; RESP 18
--- NOTE | 2018-02-23 16:43 | NUR ---
Right foot assessed by Dr. Adan. Right foot blisters popped during assessment. MD stated "it's a pressure area, it's DTI". Area was cleansed with NS. He applied xeroform and suggest to cover it with foam dressing. Advised not to use kerlix. Patient is aware of what's going
--- NOTE | 2018-02-23 18:19 | NUR ---
all needs met.no acute events.gave pain medication as reqested.turned the patient q 2 hours. and wound care nurse saw the patient's feets wound today.new orders recieved and changed the dressing as ordered.call light within reach.bed alarm on.he is resting comfortably in bed.
[2018-02-23 19:59] VITALS: BP 101/62; PULSE 75; RESP 18
--- NOTE | 2018-02-23 20:41 | PN ---
Date/Time of Note Date/Time of Note DATE: 02/23/18 TIME: 20:39 Assessment/Plan VTE Prophylaxis Risk score (from Nsg)>0 risk: 1 SCD applied (from Nsg): Yes Pharmacological prophylaxis: heparin Lines/Catheters IV Catheter Type (from Nrsg): Saline Lock Assessment/Plan Hospital Course 57 y/o paraplegic M patient presents to the floor with bilateral pressure heel wounds. Patient states they have been present for over two weeks. Patient states he was at another facility and his ex- also helps with the dressing changes and noticed worsening signs of the wound with foul smell. Patient denies f/c/n/v no chest pain or shortness of breath. Assessment/Plan 1) B/l decubitus heel ulcers right stage 2, left heel resolved 2) Right foot and ankle partial thickness wounds 3) Left decubitus ankle ulcer stage 2 4) Paraplegia b/l LE 5) Peripheral neuropathy 6) HTN 7) Depression Plan: Discussed with nursing staff to not use kerlix as it may cause irritation to his skin. Soft net with well padded bandages and offloading was recommended. Right foot wound cultures showing e. cloacae and enterococcus species. Daily wound dressing changes with dakins irrigation and dress with santyl, xeroform, and kerlix. Wound care orders are in place. Emphasized to nurse strict offloading o f heels with pillows and offloading soft boots. X-rays reviewed and did not appreciate sign of osteomyelitis. Continue with IV abx as per recommendations. Non-invasive studies ordered: No focal hemodynamically significant stenosis in either lower extremity. Patient may follow up in outpatient [facility] wound clinic Medical decisions, treatment and plan coordinated with Dr. Courtney. Result Diagram: 02/21/18 0518 02/21/18 0518 Subjective 24 Hr Interval Summary Free Text/Dictation No acute events overnight. Exam/Review of Systems Vital Signs Vitals Vital Signs Date Temp Pulse Resp B/P (MAP) Pulse Ox O2 O2 Flow FiO2 Time Delivery Rate 02/23/18 98.1 75 18 101/62 97 19:59 (75) 02/22/18 Room Air 15:31 Intake and Output 02/22/18 02/22/18 02/23/18 1515:00 23:00 07:00 IntakeIntake Total 100 ml 600 ml OutputOutput Total 2000 ml BalanceBalance 100 ml 600 ml -2000 ml Exam Palpable pedal pulses 2+ pitting edema Right foot heel full thickness ulcer with fibro granular wound bed and adipose tissue appreciated, no probing to bone, no purulence noted, wound margins measures 4 x 5 x 0.3cm. No proximal streaking. Right anterior ankle serous bullae and deroofed revealed partial thickness wound 2.5 x 2.5 x 0.1cm granular, no erythema, purulence, probing to bone or proximal streaking Right lateral foot with serosanguinous bullae deroofed revealed partial thickness wound 0.6 x 0.3 x 0.1cm granular, no erythema, purulence, probing to bone or proximal streaking Left heel ulcer with signs of epithelialization and some areas of desquamation Left lateral malleolus with eschar formation and upon deroofing revealed ulceration of mixed granular necrotic wound bed measuring 0.5 x 0.5 x 0.2cm, no purulence noted or no proximal streaking. Absent muscle strength to the lower extremity Absent protective sensations to the bilateral lower extremities. Medications Medications Current Medications IV Flush (NS 3 ml) 3 ml PER PROTOCOL IV ; Start 01/25/18 at 15:30 Ondansetron HCl (Zofran Inj) 4 mg Q6H PRN IV NAUSEA AND/OR VOMITING; Start 01/25/18 at 15:30 Acetaminophen (Tylenol Tab) 650 mg Q6H PRN PO PAIN LEVEL 1-3 OR FEVER; Start 01/25/18 at 15:30 Acetaminophen/ Hydrocodone Bitart ([place] (5/325)) 1 tab Q6H PRN PO MODERATE PAIN LEVEL 4-6 Last administered on 02/23/18at 15:30; Admin Dose 1 TAB; Start 01/25/18 at 15:30 Allopurinol (Zyloprim) 100 mg DAILY PO Last administered on 02/23/18at 09:42; Admin Dose 100 MG; Start 01/26/18 at 09:00 Baclofen (Lioresal) 10 mg TID PO Last administered on 02/23/18at 12:36; Admin Dose 10 MG; Start 01/25/18 at 21:00 Carvedilol (Coreg) 12.5 mg BID PO Last administered on 02/22/18at 21:14; Admin Dose 12.5 MG; Start 01/25/18 at 21:00 Duloxetine HCl (Cymbalta) 30 mg DAILY PO Last administered on 02/23/18 09:42; Admin Dose 30 MG; Start 01/26/18 at 09:00 Famotidine (Pepcid) 20 mg BID PO Last administered on 02/23/18 09:42; Admin Dose 20 MG; Start 01/25/18 at 21:00 Folic Acid (Folic Acid) 1 mg DAILY PO Last administered on 02/23/18 09:42; Admin Dose 1 MG; Start 01/26/18 at 09:00 Gabapentin (Neurontin) 100 mg BID PO Last administered on 02/23/18 09:42; Admin Dose 100 MG; Start 01/25/18 at 21:00 Magnesium Oxide (Mag-Ox 400) 400 mg BID PO Last administered on 02/23/18 09:42; Admin Dose 400 MG; Start 01/25/18 at 21:00 Nystatin 1 applic BID TOP Last administered on 02/23/18 10:09; Admin Dose 1 APPLIC; Start 01/25/18 at 21:00 Pyridoxine HCl (Vitamin B6) 50 mg DAILY PO Last administered on 02/23/18 09:42; Admin Dose 50 MG; Start 01/26/18 at 09:00 Risperidone (Risperdal) 1 mg QHS PO Last administered on 02/22/18 21:11; Admin Dose 1 MG; Start 01/25/18 at 21:00 Zonisamide (Zonegran) 300 mg QHS PO Last administered on 02/22/18 21:11; Admin Dose 300 MG; Start 01/25/18 at 21:00 Eye Lubricant (Artificial Tears Oph) 1 drop Q8 BOTH EYES Last administered on 02/23/18 14:16; Admin Dose 1 DROP; Start 01/25/18 at 22:00 Miscellaneous Information (Pending [facility] Order For Wound Care) This patient woody... PRN PRN XX wound; Start 01/25/18 at 16:30 Vitamin A/Vitamin D (Vitamin A & D Oint) 1 applic BID TOP Last administered on 02/23/18 09:43; Admin Dose 1 APPLIC; Start 01/26/18 at 21:00 Docusate Sodium (Colace) 200 mg BID PO Last administered on 02/23/18 09:41; A dmin Dose 200 MG; Start 01/27/18 at 21:00 Enoxaparin Sodium (Lovenox) 40 mg DAILY SC Last administered on 02/23/18 09:46; Admin Dose 40 MG; Start 01/28/18 at 09:00 Sodium Hypochlorite (Dakin'S (Dilute )) 1 applic DAILY IRR Last administered on 02/22/18 10:08; Admin Dose 1 APPLIC; Start 01/27/18 at 18:30 Collagenase (Santyl) 1 applic DAILY TOP Last administered on 02/22/18 09:00; Admin Dose 1 APPLIC; Start 01/27/18 at 17:30 Hydrocortisone (Hydrocortisone 1% Cr) 1 applic BID TOP Last administered on 02/23/18 10:08; Admin Dose 1 APPLIC; Start 01/27/18 at 21:19 Collagenase (Santyl) 1 applic DAILY TOP Last administered on 02/22/18 09:00; Admin Dose 1 APPLIC; Start 02/04/18 at 09:00 Nitroglycerin (Nitroglycerin (Sl Tab) 0.4 Mg) 1 tab Q5M PRN SL ANGINA; Start 02/05/18 at 07:00 Morphine Sulfate (morphine) 6 mg Q4H PRN PO SEVERE PAIN LEVEL 7-10 Last administered on 02/22/18 05:38; Admin Dose 6 MG; Start 02/11/18 at 20:00 Diphenhydramine HCl (Benadryl) 25 mg Q6H PRN IV itching Last administered on 02/20/18 09:57; Admin Dose 25 MG; Start 02/19/18 at 14:00 Levofloxacin/ Dextrose 100 ml @ 100 mls/hr Q24H IVPB Last administered on 02/23/18 10:56; Admin Dose 100 MLS/HR; Start 02/20/18 at 10:00 LUKE BONILLA DPM Feb 23, 2018 20:41
[2018-02-23] MEDS: ZONISAMIDE 100 MG CAP PO SCH (20:53)
[2018-02-23] MEDS: RISPERIDONE 1 MG TAB PO SCH (20:58)
[2018-02-23] MEDS: morphine LIQ (10 MG/5 ML) CUP PO PRN (20:59)
[2018-02-24 02:45] VITALS: BP 99/60; PULSE 74; RESP 18
[2018-02-24] MEDS: ARTIFICIAL TEARS 15 ML OPH BOTH EYES SCH ×3 (05:27→21:46)
--- NOTE | 2018-02-24 06:33 | NUR ---
Pt alert and oriented, all needs attended to. No acute changes noted. Wound dressing changed, pt tolerated. Turned and repositioned every 2 hours. Bed in lowest position, call light within reach
[2018-02-24 08:00] VITALS: BP 99/55; PULSE 75; RESP 16
[2018-02-24] MEDS: GABAPENTIN 100 MG CAP PO SCH ×2 (09:03→21:46)
[2018-02-24] MEDS: ALLOPURINOL 100 MG TAB PO SCH (09:03)
[2018-02-24] MEDS: MAGNESIUM OXIDE 400 MG TAB PO SCH ×2 (09:03→21:46)
[2018-02-24] MEDS: ENOXAPARIN 40 MG/0.4 ML SYG SC SCH (09:03)
[2018-02-24] MEDS: FOLIC ACID 1 MG TAB PO SCH (09:03)
[2018-02-24] MEDS: VITAMIN A & D 5 GM OINT PACKET TOP SCH ×2 (09:03→21:44)
[2018-02-24] MEDS: FAMOTIDINE 20 MG TAB PO SCH ×2 (09:03→21:46)
[2018-02-24] MEDS: BACLOFEN 10 MG TAB PO SCH ×3 (09:03→21:46)
[2018-02-24] MEDS: DULOXETINE 30 MG CAP DR PO SCH (09:03)
[2018-02-24] MEDS: DOCUSATE SODIUM 100 MG CAP PO SCH ×2 (09:05→21:46)
[2018-02-24] MEDS: PYRIDOXINE 50 MG TAB PO SCH (09:05)
[2018-02-24] MEDS: NYSTATIN 15 GM POWDER BTL TOP SCH ×2 (09:06→21:45)
[2018-02-24] MEDS: COLLAGENASE 5 GM (UD JAR) TOP SCH ×2 (09:06)
[2018-02-24] MEDS: SODIUM HYPOCHLORITE (1/40) 1 APPLIC BTL IRR SCH (09:06)
[2018-02-24] MEDS: HYDROCORTISONE 1% 28 GM CR TOP SCH ×2 (09:06→21:45)
[2018-02-24] MEDS: BALSAM PERU/CASTOR OIL 60 GM TUBE TOP SCH (09:07)
--- NOTE | 2018-02-24 09:10 | PN ---
Date/Time of Note Date/Time of Note DATE: 02/24/18 TIME: 09:08 Assessment/Plan VTE Prophylaxis Risk score (from Ns)>0 risk: 5 SCD applied (from Ns): No SCD contraindicated: other (wounds) Pharmacological prophylaxis: LMWH Lines/Catheters IV Catheter Type (from Nrs): Saline Lock Urinary Cath still in place: Yes Reason Cath still needed: skin wounds contaminated by urine Assessment/Plan Hospital Course SUBJECTIVE: No acute overnight episodes. OBJECTIVE: Vital signs-see below PHYSICAL EXAM: Constitutional: Bedbound male, not in acute distress. Psych: nl mood/affect, no complaints Head: atraumatic, normocephalic Eyes: nl conjunctiva, nl sclera ENMT: mucosa pink and moist, nl external ears & nose Neck: non-tender, supple Respiratory: clear to auscultation, normal air movement Cardiovascular: nl pulses, regular rate and rhythm Gastrointestinal: non-tender, soft, bowel sounds active in all 4 quadrants. Musculoskeletal/extremities: Paraplegic. Normal pulses,no cyanosis, no edema. Neurological: Alert oriented 3,nl speech, nl strength Skin: Bilateral heel with ulcers, covered with dressing. No oozing noted on dressing. Nl turgor ASSESSMENT/PLAN: Very unfortunate 57-year-old male with a history of paraplegia secondary to spinal cord syndrome 6 months ago, who also resides in a custodial, presented to the emergency room with worsening bilateral heel ulcers with foul-smelling drainage 1. Bilateral heel Decub ulcers -status post excisional debridement of bilateral heel decubitus. No evidence of osteomyelitis. -pro-calcitonin level still mildly elevated, recommend continuation of IV antibiotic per podiatry recommendation. Repeat CRP/ESR trending down. -Continue wound care per podiatry recommendation with Dakin's irrigation/Xeroform/Kerlix dressing. 2. Paraplegia secondary to spinal disorder and back surgery 6 months ago -Exact nature of disorder and surgery unclear -Continue baclofen 3. Depression -Continue home Cymbalta 4. Hypertension -Continue Coreg 5. Debility secondary to #2. -Patient resides in a custodial. 6. Chronic anemia with mild iron deficiency. -Stable H&H after 1 unit transfusion. -Continue oral iron replacement. 7. Unstageable pressure ulcers, sacral coccyx -S/o bedside debridement 02/13/18 -Continue wound care Prophylaxis:Lovenox/Pepcid Diet: Regular CODE STATUS: Full code Disposition: Continue current medical management. Pending custodial placeme nt. We will repeat labs on Friday which will be weekly. We will also repeat a pro-calcitonin level. Patient was seen in collaboration with Dr. Awad Result Diagram: 02/21/1851702/21/18517 Exam/Review of Systems Vital Signs Vitals Vital Signs Date Temp Pulse Resp B/P (MAP) Pulse Ox O2 O2 Flow FiO2 Time Delivery Rate 02/24/18 98.2 75 16 99/55 (70) 97 Room Air 08:00 Intake and Output 02/23/18 02/23/18 02/24/18 1515:00 23:00 07:00 IntakeIntake Total 100 ml 360 ml 1220 ml OutputOutput Total 1600 ml 1950 ml BalanceBalance 100 ml -1240 ml -730 ml Medications Medications Current Medications IV Flush (NS 3 ml) 3 ml PER PROTOCOL IV ; Start 01/25/18 at 15:30 Ondansetron HCl (Zofran Inj) 4 mg Q6H PRN IV NAUSEA AND/OR VOMITING; Start 01/25/18 at 15:30 Acetaminophen (Tylenol Tab) 650 mg Q6H PRN PO PAIN LEVEL 1-3 OR FEVER; Start 01/25/18 at 15:30 Acetaminophen/ Hydrocodone Bitart ([place] (5/325)) 1 tab Q6H PRN PO MODERATE PAIN LEVEL 4-6 Last administered on 02/23/18at 23:41; Admin Dose 1 TAB; Start 01/25/18 at 15:30 Allopurinol (Zyloprim) 100 mg DAILY PO Last administered on 02/24/18at 09:03; Admin Dose 100 MG; Start 01/26/18 at 09:00 Baclofen (Lioresal) 10 mg TID PO Last administered on 02/24/18at 09:03; Admin Dose 10 MG; Start 01/25/18 at 21:00 Carvedilol (Coreg) 12.5 mg BID PO Last administered on 02/22/18at 21:14; Admin Dose 12.5 MG; Start 01/25/18 at 21:00 Duloxetine HCl (Cymbalta) 30 mg DAILY PO Last administered on 02/24/18at 09:03; Admin Dose 30 MG; Start 01/26/18 at 09:00 Famotidine (Pepcid) 20 mg BID PO Last administered on 02/24/18 09:03; Admin Dose 20 MG; Start 01/25/18 at 21:00 Folic Acid (Folic Acid) 1 mg DAILY PO Last administered on 02/24/18 09:03; Admin Dose 1 MG; Start 01/26/18 at 09:00 Gabapentin (Neurontin) 100 mg BID PO Last administered on 02/24/18 09:03; Admin Dose 100 MG; Start 01/25/18 at 21:00 Magnesium Oxide (Mag-Ox 400) 400 mg BID PO Last administered on 02/24/18 09:03; Admin Dose 400 MG; Start 01/25/18 at 21:00 Nystatin 1 applic BID TOP Last administered on 02/24/18 09:06; Admin Dose 1 APPLIC; Start 01/25/18 at 21:00 Pyridoxine HCl (Vitamin B6) 50 mg DAILY PO Last administered on 02/24/18 09:05; Admin Dose 50 MG; Start 01/26/18 at 09:00 Risperidone (Risperdal) 1 mg QHS PO Last administered on 02/23/18 20:58; Admin Dose 1 MG; Start 01/25/18 at 21:00 Zonisamide (Zonegran) 300 mg QHS PO Last administered on 02/23/18 20:53; Admin Dose 300 MG; Start 01/25/18 at 21:00 Eye Lubricant (Artificial Tears Oph) 1 drop Q8 BOTH EYES Last administered on 02/24/18 05:27; Admin Dose 1 DROP; Start 01/25/18 at 22:00 [facility] This patient woody... PRN PRN XX wound; Start 01/25/18 at 16:30 Vitamin A/Vitamin D (Vitamin A & D Oint) 1 applic BID TOP Last administered on 02/24/18 09:03; Admin Dose 1 APPLIC; Start 01/26/18 at 21:00 Docusate Sodium (Colace) 200 mg BID PO Last administered on 02/24/18 09:05; Admin Dose 200 MG; Start 01/27/18 at 21:00 Enoxaparin Sodium (Lovenox) 40 mg DAILY SC Last administered on 02/24/18 09:03; Admin Dose 40 MG; Start 01/28/18 at 09:00 Sodium Hypochlorite (Dakin'S (Dilute 40)) 1 applic DAILY IRR Last administered on 02/24/18 09:06; Admin Dose 1 APPLIC; Start 01/27/18 at 18:30 Collagenase (Santyl) 1 applic DAILY TOP Last administered on 02/24/18 09:06; Admin Dose 1 APPLIC; Start 01/27/18 at 17:30 Hydrocortisone (Hydrocortisone 1% Cr) 1 applic BID TOP Last administered on 02/24/18 09:06; Admin Dose 1 APPLIC; Start 01/27/18 at 21:19 Collagenase (Santyl) 1 applic DAILY TOP Last administered on 02/24/18 09:06; Admin Dose 1 APPLIC; Start 02/04/18 at 09:00 Nitroglycerin (Nitroglycerin (Sl Tab) 0.4 Mg) 1 tab Q5M PRN SL ANGINA; Start 02/05/18 at 07:00 Morphine Sulfate (morphine) 6 mg Q4H PRN PO SEVERE PAIN LEVEL 7-10 Last administered on 02/23/18 20:59; Admin Dose 6 MG; Start 02/11/18 at 20:00 Diphenhydramine HCl (Benadryl) 25 mg Q6H PRN IV itching Last administered on 02/20/18 09:57; Admin Dose 25 MG; Start 02/19/18 at 14:00 Levofloxacin/ Dextrose 100 ml @ 100 mls/hr Q24H IVPB Last administered on 02/01 10:56; Admin Dose 100 MLS/HR; Start 02/20/18 at 10:00 LIVIA ADAME NP Feb 24, 2018 09:10
[2018-02-24] MEDS: LEVOFLOXACIN 500MG/D5W (PMX) 100 ML IVPB SCH (09:38)
[2018-02-24 14:34] VITALS: BP 105/70; PULSE 80; RESP 16
[2018-02-24] MEDS: HYDROCODONE/APAP (5/325) TAB PO PRN ×2 (15:03→21:53)
--- NOTE | 2018-02-24 16:12 | NUR ---
RN Notes: Patient remains alert and oriented, afebrile, no sob noted, no acute distress noted, c/o pain medicated as ordered with some relief. Upon skin assessment noted that tubular netting that used on pt's bilateral foot to cover wound causing rubio on his skin. Dr. Adan made aware and order to use foam dressing as secondary dressing to cover wound and do not use Kerlix Dressing and net on both feet. Hourly rounding done, call light within reach, bed alarm on, Turned and repositioned, incontinence care done, kept clean and dry. Pt refusing wedge to use for turning said that he's not comfortable and preferred pillows to turn on his side. Will continue to monitor until the end of the shift.
[2018-02-24 20:00] VITALS: BP 111/63; PULSE 83; RESP 18
--- NOTE | 2018-02-24 21:32 | PN ---
Date/Time of Note Date/Time of Note DATE: 02/24/18 TIME: 21:30 Assessment/Plan Lines/Catheters IV Catheter Type (from Nrs): Saline Lock Benavidez in Place (from Nrs): Yes Assessment/Plan Chief Complaint/Hosp Course 1. Stage 3 necrotic wound: Noted with stool contamination s/p excisional debridement 02/20 -cont local care> Santyl -frequent turning and off-loading -low air loss mattress -vitamin c -short term zinc -optimize nutrition -keep area clean as possible and free from stool 2. Bilateral lower extremity ulcers: -As above -Per podiatry 3. Hypochromic microcytic anemia: -Monitor and transfuse as needed 4. Depression: -Psychiatric optimization 5. Paraplegia -Supportive 6. Hypertension -nutrition and medication optimization Thank you Subjective 24 Hr Interval Summary Feels well. No fevers, chills, sob, congested cough, cp, palpitations, woody, dizziness, nausea, vomiting, diarrhea, dysuria. Exam/Review of Systems Vital Signs Vitals Vital Signs Date Temp Pulse Resp B/P (MAP) Pulse Ox O2 O2 Flow FiO2 Time Delivery Rate 02/24/18 98.2 83 18 111/63 97 20:00 (79) 02/24/18 Room Air 08:00 Intake and Output 02/23/18 02/23/18 02/24/18 1515:00 23:00 07:00 IntakeIntake Total 100 ml 360 ml 1220 ml OutputOutput Total 1600 ml 1950 ml BalanceBalance 100 ml -1240 ml -730 ml Exam Free Text/Dictation Constitutional: alert, oriented Psych: nl mood/affect, anxiety (Minimal) Head: normocephalic, atraumatic Eyes: nl conjunctiva, EOMI, nl sclera ENMT: nl external ears & nose, nl lips & teeth, mucosa pink and moist Neck: supple, non-tender Respiratory: normal air movement; No congested cough Cardiovascular: regular rate and rhythm; No edema Gastrointestinal: soft, non-tender; No distended Musculoskeletal: nl extremities to inspection; No nl gait and stance Extremities: normal pulses; No edema Neurological: nl mental status, nl speech Skin: nl turgor, Sacral wound with packing, no periwound erythema, no drainage; bilateral lower extremity ulcers: Wrapped Results Result Diagram: 02/21/1851702/21/18517 DOC HOFFMAN MD Feb 24, 2018 21:32
[2018-02-24] MEDS: ZONISAMIDE 100 MG CAP PO SCH (21:46)
[2018-02-24] MEDS: RISPERIDONE 1 MG TAB PO SCH (21:46)
[2018-02-25] MEDS: morphine LIQ (10 MG/5 ML) CUP PO PRN (02:03)
[2018-02-25 02:09] VITALS: BP 114/60; PULSE 66; RESP 17
[2018-02-25] MEDS: ARTIFICIAL TEARS 15 ML OPH BOTH EYES SCH ×3 (05:13→22:13)
--- NOTE | 2018-02-25 06:26 | NUR ---
Pt alert and oriented, all needs attended to. Pain medication given as needed, partially effective. No acute changes noted. Wound dressing changed, pt tolerated. Turned and repositioned every 2 hours. Bed in lowest position, call light within reach
[2018-02-25 07:55] VITALS: BP 104/59; PULSE 74; RESP 16
[2018-02-25] MEDS: NYSTATIN 15 GM POWDER BTL TOP SCH ×2 (09:00→20:13)
[2018-02-25] MEDS: COLLAGENASE 5 GM (UD JAR) TOP SCH ×2 (09:00→09:20)
[2018-02-25] MEDS: HYDROCORTISONE 1% 28 GM CR TOP SCH ×2 (09:00→20:13)
[2018-02-25] MEDS: ENOXAPARIN 40 MG/0.4 ML SYG SC SCH (09:18)
[2018-02-25] MEDS: FAMOTIDINE 20 MG TAB PO SCH ×2 (09:19→20:12)
[2018-02-25] MEDS: LEVOFLOXACIN 500MG/D5W (PMX) 100 ML IVPB SCH (09:19)
[2018-02-25] MEDS: DOCUSATE SODIUM 100 MG CAP PO SCH ×2 (09:19→20:03)
[2018-02-25] MEDS: FOLIC ACID 1 MG TAB PO SCH (09:19)
[2018-02-25] MEDS: ALLOPURINOL 100 MG TAB PO SCH (09:19)
[2018-02-25] MEDS: BACLOFEN 10 MG TAB PO SCH ×3 (09:19→20:04)
[2018-02-25] MEDS: DULOXETINE 30 MG CAP DR PO SCH (09:20)
[2018-02-25] MEDS: PYRIDOXINE 50 MG TAB PO SCH (09:20)
[2018-02-25] MEDS: MAGNESIUM OXIDE 400 MG TAB PO SCH ×2 (09:20→20:04)
[2018-02-25] MEDS: GABAPENTIN 100 MG CAP PO SCH ×2 (09:20→20:04)
[2018-02-25] MEDS: SODIUM HYPOCHLORITE (1/40) 1 APPLIC BTL IRR SCH (09:21)
[2018-02-25] MEDS: VITAMIN A & D 5 GM OINT PACKET TOP SCH ×2 (09:21→20:04)
[2018-02-25] MEDS: BALSAM PERU/CASTOR OIL 60 GM TUBE TOP SCH (09:21)
--- NOTE | 2018-02-25 09:28 | PN ---
Date/Time of Note Date/Time of Note DATE: 02/25/18 TIME: 09:27 Assessment/Plan Lines/Catheters IV Catheter Type (from [facility]): Saline Lock Benavidez in Place (from [facility]): Yes Assessment/Plan Chief Complaint/Hosp Course 1. Stage 3 necrotic wound: Noted with stool contamination s/p repeat excisional debridement 02/20 -cont local care> Santyl -frequent turning and off-loading -low air loss mattress -vitamin c -short term zinc -optimize nutrition -keep area clean as possible and free from stool 2. Bilateral lower extremity ulcers: -As above -Per podiatry 3. Hypochromic microcytic anemia: -Monitor and transfuse as needed 4. Depression: -Psychiatric optimization 5. Paraplegia -Supportive 6. Hypertension -nutrition and medication optimization Thank you. Patient seen and examined in collaboration with Dr. Brian Angulo. Subjective 24 Hr Interval Summary No fevers, chills, sob, congested cough, cp, palpitations, woody, dizziness, n/v/d/dysuria, excessive wound drainage/ odor. Exam/Review of Systems Vital Signs Vitals Vital Signs Date Temp Pulse Resp B/P (MAP) Pulse Ox O2 O2 Flow FiO2 Time Delivery Rate 02/25/18 97.8 74 16 104/59 99 07:55 (74) 02/24/18 Room Air 08:00 Intake and Output 02/24/18 02/24/18 02/25/18 1515:00 23:00 07:00 IntakeIntake Total 280 ml 1700 ml 150 ml OutputOutput Total 950 ml 1300 ml BalanceBalance 280 ml 750 ml -1150 ml Exam Free Text/Dictation Constitutional: alert, oriented Psych: nl mood/affect, anxiety (Minimal) Head: normocephalic, atraumatic Eyes: nl conjunctiva, EOMI, nl sclera ENMT: nl external ears & nose, nl lips & teeth, mucosa pink and moist Neck: supple, non-tender Respiratory: normal air movement; No congested cough Cardiovascular: regular rate and rhythm; No edema Gastrointestinal: soft, non-tender; No distended Musculoskeletal: nl extremities to inspection; No nl gait and stance Extremities: normal pulses; No edema Neurological: nl mental status, nl speech Skin: nl turgor, Sacral wound with min slough, no periwound erythema, no drainage; bilateral lower extremity ulcers: Wrapped Results Result Diagram: 02/21/18 0518 02/21/18 0518 FERNANDO DÍAZ NP Feb 25, 2018 09:28
[2018-02-25] MEDS: HYDROCODONE/APAP (5/325) TAB PO PRN ×2 (09:36→20:01)
--- NOTE | 2018-02-25 11:34 | PN ---
Date/Time of Note Date/Time of Note DATE: 02/25/18 TIME: 11:32 Assessment/Plan VTE Prophylaxis Risk score (from Ns)>0 risk: 6 SCD applied (from Ns): No SCD contraindicated: other (WOUNDS) Pharmacological prophylaxis: LMWH Lines/Catheters IV Catheter Type (from Nrs): Saline Lock Urinary Cath still in place: Yes Reason Cath still needed: skin wounds contaminated by urine Assessment/Plan Hospital Course SUBJECTIVE: No acute overnight episodes. OBJECTIVE: Vital signs-see below PHYSICAL EXAM: Constitutional: Bedbound male, not in acute distress. Psych: nl mood/affect, no complaints Head: atraumatic, normocephalic Eyes: nl conjunctiva, nl sclera ENMT: mucosa pink and moist, nl external ears & nose Neck: non-tender, supple Respiratory: clear to auscultation, normal air movement Cardiovascular: nl pulses, regular rate and rhythm Gastrointestinal: non-tender, soft, bowel sounds active in all 4 quadrants. Musculoskeletal/extremities: Paraplegic. Normal pulses,no cyanosis, no edema. Neurological: Alert oriented 3,nl speech, nl strength Skin: Bilateral heel with ulcers, covered with dressing. No oozing noted on dressing. Nl turgor ASSESSMENT/PLAN: Very unfortunate 57-year-old male with a history of paraplegia secondary to spinal cord syndrome 6 months ago, who also resides in a long term, presented to the emergency room with worsening bilateral heel ulcers with foul-smelling drainage 1. Bilateral heel Decub ulcers -status post excisional debridement of bilateral heel decubitus. No evidence of osteomyelitis. -pro-calcitonin level still mildly elevated, recommend continuation of IV antibiotic per podiatry recommendation. Repeat CRP/ESR trending down. -Continue wound care per podiatry recommendation with Dakin's irrigation/Xeroform/Kerlix dressing. 2. Paraplegia secondary to spinal disorder and back surgery 6 months ago -Exact nature of disorder and surgery unclear -Continue baclofen 3. Depression -Continue home Cymbalta 4. Hypertension -Continue Coreg 5. Debility secondary to #2. -Patient resides in a long term. 6. Chronic anemia with mild iron deficiency. -Stable H&H after 1 unit transfusion. -Continue oral iron replacement. 7. Unstageable pressure ulcers, sacral coccyx -S/o bedside debridement 02/13/18 -Continue wound care Prophylaxis:Lovenox/Pepcid Diet: Regular CODE STATUS: Full code Disposition: Continue current medical management. Pending long term placeme nt. We will repeat labs on Friday which will be weekly. We will also repeat a pro-calcitonin level. Replace Benavidez catheter as it is been more than [address] Patient was seen in collaboration with Dr. Ritesh Sweet Hosp Indication/DC Plan: Needs shelter facility placement. Result Diagram: 02/21/1851702/21/18517 Exam/Review of Systems Vital Signs Vitals Vital Signs Date Temp Pulse Resp B/P (MAP) Pulse Ox O2 O2 Flow FiO2 Time Delivery Rate 02/25/18 97.8 74 16 104/59 99 07:55 (74) 02/24/18 Room Air 08:00 Intake and Output 02/24/18 02/24/18 02/25/18 1414:59 22:59 06:59 IntakeIntake Total 280 ml 1700 ml 150 ml OutputOutput Total 950 ml 1300 ml BalanceBalance 280 ml 750 ml -1150 ml Medications Medications Current Medications IV Flush (NS 3 ml) 3 ml PER PROTOCOL IV ; Start 01/25/18 at 15:30 Ondansetron HCl (Zofran Inj) 4 mg Q6H PRN IV NAUSEA AND/OR VOMITING; Start 01/25/18 at 15:30 Acetaminophen (Tylenol Tab) 650 mg Q6H PRN PO PAIN LEVEL 1-3 OR FEVER; Start 01/25/18 at 15:30 Acetaminophen/ Hydrocodone Bitart ([place] (5/325)) 1 tab Q6H PRN PO MODERATE PAIN LEVEL 4-6 Last administered on 02/25/18at 09:36; Admin Dose 1 TAB; Start 01/25/18 at 15:30 Allopurinol (Zyloprim) 100 mg DAILY PO Last administered on 02/25/18at 09:19; Admin Dose 100 MG; Start 01/26/18 at 09:00 Baclofen (Lioresal) 10 mg TID PO Last administered on 02/25/18at 09:19; Admin Dose 10 MG; Start 01/25/18 at 21:00 Carvedilol (Coreg) 12.5 mg BID PO Last administered on 02/25/18at 09:20; Admin Dose 12.5 MG; Start 01/25/18 at 21:00 Duloxetine HCl (Cymbalta) 30 mg DAILY PO Last administered on 02/25/18 09:20; Admin Dose 30 MG; Start 01/26/18 at 09:00 Famotidine (Pepcid) 20 mg BID PO Last administered on 02/25/18 09:19; Admin Dose 20 MG; Start 01/25/18 at 21:00 Folic Acid (Folic Acid) 1 mg DAILY PO Last administered on 02/25/18 09:19; Admin Dose 1 MG; Start 01/26/18 at 09:00 Gabapentin (Neurontin) 100 mg BID PO Last administered on 02/25/18 09:20; Admin Dose 100 MG; Start 01/25/18 at 21:00 Magnesium Oxide (Mag-Ox 400) 400 mg BID PO Last administered on 02/25/18 09:20; Admin Dose 400 MG; Start 01/25/18 at 21:00 Nystatin 1 applic BID TOP Last administered on 02/24/18 21:45; Admin Dose 1 APPLIC; Start 01/25/18 at 21:00 Pyridoxine HCl (Vitamin B6) 50 mg DAILY PO Last administered on 02/25/18 09:20; Admin Dose 50 MG; Start 01/26/18 at 09:00 Risperidone (Risperdal) 1 mg QHS PO Last administered on 02/24/18 21:46; Admin Dose 1 MG; Start 01/25/18 at 21:00 Zonisamide (Zonegran) 300 mg QHS PO Last administered on 02/24/18 21:46; Admin Dose 300 MG; Start 01/25/18 at 21:00 Eye Lubricant (Artificial Tears Oph) 1 drop Q8 BOTH EYES Last administered on 02/25/18 05:13; Admin Dose 1 DROP; Start 01/25/18 at 22:00 Miscellaneous Information (Pending [facility] Order For Wound Care) This patient woody... PRN PRN XX wound; Start 01/25/18 at 16:30 Vitamin A/Vitamin D (Vitamin A & D Oint) 1 applic BID TOP Last administered on 02/25/18 09:21; Admin Dose 1 APPLIC; Start 01/26/18 at 21:00 Docusate Sodium (Colace) 200 mg BID PO Last administered on 02/25/18 09:19; Admin Dose 200 MG; Start 01/27/18 at 21:00 Enoxaparin Sodium (Lovenox) 40 mg DAILY SC Last administered on 02/25/18 09:18; Admin Dose 40 MG; Start 01/28/18 at 09:00 Sodium Hypochlorite (Dakin'S (Dilute 140)) 1 applic DAILY IRR Last administered on 02/25/18 09:21; Admin Dose 1 APPLIC; Start 01/27/18 at 18:30 Collagenase (Santyl) 1 applic DAILY TOP Last administered on 02/25/18 09:20; Admin Dose 1 APPLIC; Start 01/27/18 at 17:30 Hydrocortisone (Hydrocortisone 1% Cr) 1 applic BID TOP Last administered on 02/24/18 21:45; Admin Dose 1 APPLIC; Start 01/27/18 at 21:19 Collagenase (Santyl) 1 applic DAILY TOP Last administered on 02/24/18 09:06; Admin Dose 1 APPLIC; Start 02/04/18 at 09:00 Nitroglycerin (Nitroglycerin (Sl Tab) 0.4 Mg) 1 tab Q5M PRN SL ANGINA; Start 1 04/08/17 at 07:00 Morphine Sulfate (morphine) 6 mg Q4H PRN PO SEVERE PAIN LEVEL 7-10 Last administered on 02/25/18 02:03; Admin Dose 6 MG; Start 02/11/18 at 20:00 Diphenhydramine HCl (Benadryl) 25 mg Q6H PRN IV itching Last administered on 02/20/18 09:57; Admin Dose 25 MG; Start 02/19/18 at 14:00 Levofloxacin/ Dextrose 100 ml @ 100 mls/hr Q24H IVPB Last administered on 02/25/18 09:19; Admin Dose 100 MLS/HR; Start 02/20/18 at 10:00 LIVIA ADAME NP Feb 25, 2018 11:34
--- NOTE | 2018-02-25 14:27 | NUR ---
PT NOTE , Therapy day number 9 Subjective Current complaint of pain Pain Scale NUMERIC Pain Intensity 3 (0-10) Patient Stated Goal for Pain Relief 0 (0-10) Pain Level Comment BOTH SHOULDERS Exercise Assessment Label Bilat Lower Extremity Exercise Type Manual Stretching Additional Exercise Comments BLE'S IN ALL PLANES . Exercise Start Time 13:35 Exercise End Time 14:00 Total Exercise Time 25 min (8-127) Safety Judgement Fair Activity Tolerance Fair Equipment Present Benavidez Catheter Additional Equipment Present HEEL PROTECTOR Post Treatment Pain Intensity 3 0-10 Total Treament Time 25 min (8-127) Total Minutes 25 Total Units 2 PT Technical Record Comment PT NOTE, RN CLEARED , PATIENT AGREEABLE . PERFORMED MANUAL STRETCHING OF BLE'S IN SUPINE POSITION IN ALL PLANES 5 REPS X3 SETS . VS STABLE TOLERATED TREATMENT WELL , A: SNF/REHAB PLACEMENT ONCE CLEARED BY . P: CONTINUE WITH POC
[2018-02-25 14:42] VITALS: BP 105/60; PULSE 78; RESP 18
--- NOTE | 2018-02-25 16:34 | NUR ---
SNF PLACEMENT PENDING ACCEPTANCE: ADMINISTRATIVE DAYS [facility] Addendum: 02/25/18 at 1636 by GENOVEVA GONSALES Amended: Links added.
--- NOTE | 2018-02-25 18:55 | NUR ---
During catheter change found a redness x intact blister x DTI with measurement of1.3L x .4W found under mathur catheter statlock. Skin is intact. No complain of pain. Cleanse with NS and cover with allevyn. No s/s of infection noted. Will notify
[2018-02-25] MEDS: RISPERIDONE 1 MG TAB PO SCH (20:03)
[2018-02-25] MEDS: ZONISAMIDE 100 MG CAP PO SCH (20:12)
[2018-02-25 20:40] VITALS: BP 106/62; PULSE 101; RESP 18
[2018-02-26] MEDS: morphine LIQ (10 MG/5 ML) CUP PO PRN (00:54)
[2018-02-26 02:30] VITALS: BP 99/61; PULSE 83; RESP 18
[2018-02-26] MEDS: ARTIFICIAL TEARS 15 ML OPH BOTH EYES SCH ×3 (06:35→21:05)
--- NOTE | 2018-02-26 06:44 | NUR ---
RN Notes Patient had no change in condition overnight. Pain adequately managed with PRN [place] and Morphine. Patient repositioned every two hours, kept clean, dry and comfortable. Hourly rounding provided. Patient's bed at lowest position. Bed alarm activated. Will endorse to oncoming shift.
[2018-02-26 08:28] VITALS: BP 103/61; PULSE 85; RESP 18
[2018-02-26] MEDS: HYDROCORTISONE 1% 28 GM CR TOP SCH ×2 (09:00→21:22)
[2018-02-26] MEDS: COLLAGENASE 5 GM (UD JAR) TOP SCH ×2 (09:00→10:09)
[2018-02-26] MEDS: BALSAM PERU/CASTOR OIL 60 GM TUBE TOP SCH (09:00)
[2018-02-26] MEDS: NYSTATIN 15 GM POWDER BTL TOP SCH ×2 (09:00→21:22)
[2018-02-26] MEDS: SODIUM HYPOCHLORITE (1/40) 1 APPLIC BTL IRR SCH (09:00)
[2018-02-26] MEDS: FAMOTIDINE 20 MG TAB PO SCH ×2 (10:08→21:05)
[2018-02-26] MEDS: ENOXAPARIN 40 MG/0.4 ML SYG SC SCH (10:08)
[2018-02-26] MEDS: ALLOPURINOL 100 MG TAB PO SCH (10:08)
[2018-02-26] MEDS: DOCUSATE SODIUM 100 MG CAP PO SCH ×2 (10:08→21:04)
[2018-02-26] MEDS: PYRIDOXINE 50 MG TAB PO SCH (10:08)
[2018-02-26] MEDS: DULOXETINE 30 MG CAP DR PO SCH (10:09)
[2018-02-26] MEDS: GABAPENTIN 100 MG CAP PO SCH ×2 (10:09→21:05)
[2018-02-26] MEDS: BACLOFEN 10 MG TAB PO SCH ×3 (10:09→21:05)
[2018-02-26] MEDS: VITAMIN A & D 5 GM OINT PACKET TOP SCH ×2 (10:11→21:05)
[2018-02-26] MEDS: MAGNESIUM OXIDE 400 MG TAB PO SCH ×2 (10:11→21:05)
[2018-02-26] MEDS: FOLIC ACID 1 MG TAB PO SCH (10:11)
[2018-02-26] MEDS: LEVOFLOXACIN 500MG/D5W (PMX) 100 ML IVPB SCH (10:14)
--- NOTE | 2018-02-26 10:30 | NUR ---
Martha PATINO is made aware of patient redness in his left inner thigh
--- NOTE | 2018-02-26 11:03 | PN ---
Date/Time of Note Date/Time of Note DATE: 02/26/18 TIME: 11:01 Assessment/Plan Lines/Catheters IV Catheter Type (from [facility]): Saline Lock Benavidez in Place (from [facility]): Yes Assessment/Plan Chief Complaint/Hosp Course 1. Stage 3 necrotic wound: Noted with stool contamination s/p repeat excisional debridement 02/20 -cont local care> Santyl -frequent turning and off-loading -low air loss mattress -vitamin c -short term zinc -optimize nutrition -keep area clean as possible and free from stool 2. Bilateral lower extremity ulcers: -As above -Per podiatry 3. Hypochromic microcytic anemia: -Monitor and transfuse as needed 4. Depression: -Psychiatric optimization 5. Paraplegia -Supportive 6. Hypertension -nutrition and medication optimization Thank you. Patient seen and examined in collaboration with Dr. Brian Angulo. Subjective 24 Hr Interval Summary No acute events. Pending placement. No fevers, chills, sob, congested cough, cp, palpitations, woody, dizziness, n/v/d/dysuria, wound drainage/odor. Exam/Review of Systems Vital Signs Vitals Vital Signs Date Temp Pulse Resp B/P (MAP) Pulse Ox O2 O2 Flow FiO2 Time Delivery Rate 02/26/18 97.8 85 18 103/61 97 Room Air 08:28 (75) Intake and Output 02/25/18 02/25/18 02/26/18 1515:00 23:00 07:00 IntakeIntake Total 100 ml 1500 ml 725 ml OutputOutput Total 1150 ml 1575 ml BalanceBalance 100 ml 350 ml -850 ml Exam Free Text/Dictation Constitutional: alert, oriented Psych: nl mood/affect, anxiety (Minimal) Head: normocephalic, atraumatic Eyes: nl conjunctiva, EOMI, nl sclera ENMT: nl external ears & nose, nl lips & teeth, mucosa pink and moist Neck: supple, non-tender Respiratory: normal air movement; No congested cough Cardiovascular: regular rate and rhythm; No edema Gastrointestinal: soft, non-tender; No distended Musculoskeletal: nl extremities to inspection; No nl gait and stance Extremities: normal pulses; No edema Neurological: nl mental status, nl speech Skin: nl turgor, Sacral wound packed, no periwound erythema, no drainage; bilateral lower extremity ulcers: Wrapped SUMINISTRADO,FERNANDO TORNADO CHASER Feb 26, 2018 11:03
[2018-02-26] MEDS: HYDROCODONE/APAP (5/325) TAB PO PRN ×2 (11:33→20:30)
--- NOTE | 2018-02-26 12:46 | PN ---
Date/Time of Note Date/Time of Note DATE: 02/26/18 TIME: 12:45 Assessment/Plan VTE Prophylaxis Risk score (from Ns)>0 risk: 5 SCD applied (from Ns): No SCD contraindicated: other (wounds) Pharmacological prophylaxis: LMWH Lines/Catheters IV Catheter Type (from Nrs): Saline Lock Urinary Cath still in place: Yes Reason Cath still needed: skin wounds contaminated by urine Assessment/Plan Hospital Course SUBJECTIVE: No acute overnight episodes. OBJECTIVE: Vital signs-see below PHYSICAL EXAM: Constitutional: Bedbound male, not in acute distress. Psych: nl mood/affect, no complaints Head: atraumatic, normocephalic Eyes: nl conjunctiva, nl sclera ENMT: mucosa pink and moist, nl external ears & nose Neck: non-tender, supple Respiratory: clear to auscultation, normal air movement Cardiovascular: nl pulses, regular rate and rhythm Gastrointestinal: non-tender, soft, bowel sounds active in all 4 quadrants. Musculoskeletal/extremities: Paraplegic. Normal pulses,no cyanosis, no edema. Neurological: Alert oriented 3,nl speech, nl strength Skin: Bilateral heel with ulcers, covered with dressing. No oozing noted on dressing. Nl turgor ASSESSMENT/PLAN: Very unfortunate 57-year-old male with a history of paraplegia secondary to spinal cord syndrome 6 months ago, who also resides in a retirement, presented to the emergency room with worsening bilateral heel ulcers with foul-smelling drainage 1. Bilateral heel Decub ulcers -status post excisional debridement of bilateral heel decubitus. No evidence of osteomyelitis. -pro-calcitonin level still mildly elevated, recommend continuation of IV antibiotic per podiatry recommendation. Repeat CRP/ESR trending down. -Continue wound care per podiatry recommendation with Dakin's irrigation/Xeroform/Kerlix dressing. 2. Paraplegia secondary to spinal disorder and back surgery 6 months ago -Exact nature of disorder and surgery unclear -Continue baclofen 3. Depression -Continue home Cymbalta 4. Hypertension -Continue Coreg 5. Debility secondary to #2. -Patient resides in a retirement. 6. Chronic anemia with mild iron deficiency. -Stable H&H after 1 unit transfusion. -Continue oral iron replacement. 7. Unstageable pressure ulcers, sacral coccyx -S/o bedside debridement 12/14/18 -Continue wound care Prophylaxis:Lovenox/Pepcid Diet: Regular CODE STATUS: Full code Disposition: Continue current medical management. Pending retirement placement. We will repeat labs and procalcitonin in a.m. Replace Benavidez catheter as it is been more than [address] Patient was seen in collaboration with Dr. Awad Exam/Review of Systems Vital Signs Vitals Vital Signs Date Temp Pulse Resp B/P (MAP) Pulse Ox O2 O2 Flow FiO2 Time Delivery Rate 02/26/18 97.8 85 18 103/61 97 Room Air 08:28 (75) Intake and Output 02/25/18 02/25/18 02/26/18 1414:59 22:59 06:59 IntakeIntake Total 100 ml 1500 ml 725 ml OutputOutput Total 1150 ml 1575 ml BalanceBalance 100 ml 350 ml -850 ml Medications Medications Current Medications IV Flush (NS 3 ml) 3 ml PER PROTOCOL IV ; Start 01/25/18 at 15:30 Ondansetron HCl (Zofran Inj) 4 mg Q6H PRN IV NAUSEA AND/OR VOMITING; Start 01/25/18 at 15:30 Acetaminophen (Tylenol Tab) 650 mg Q6H PRN PO PAIN LEVEL 1-3 OR FEVER; Start 01/25/18 at 15:30 Acetaminophen/ Hydrocodone Bitart ([place] (5/325)) 1 tab Q6H PRN PO MODERATE PAIN LEVEL 4-6 Last administered on 02/26/18at 11:33; Admin Dose 1 TAB; Start 01/25/18 at 15:30 Allopurinol (Zyloprim) 100 mg DAILY PO Last administered on 02/26/18at 10:08; Admin Dose 100 MG; Start 01/26/18 at 09:00 Baclofen (Lioresal) 10 mg TID PO Last administered on 02/26/18at 10:09; Admin Dose 10 MG; Start 01/25/18 at 21:00 Carvedilol (Coreg) 12.5 mg BID PO Last administered on 02/26/18at 10:10; Admin Dose 12.5 MG; Start 01/25/18 at 21:00 Duloxetine HCl (Cymbalta) 30 mg DAILY PO Last administered on 02/26/18at 10:09; Admin Dose 30 MG; Start 01/26/18 at 09:00 Famotidine (Pepcid) 20 mg BID PO Last administered on 02/26/18 10:08; Admin Dose 20 MG; Start 01/25/18 at 21:00 Folic Acid (Folic Acid) 1 mg DAILY PO Last administered on 02/26/18 10:11; Admin Dose 1 MG; Start 01/26/18 at 09:00 Gabapentin (Neurontin) 100 mg BID PO Last administered on 02/26/18 10:09; Admin Dose 100 MG; Start 01/25/18 at 21:00 Magnesium Oxide (Mag-Ox 400) 400 mg BID PO Last administered on 02/26/18 10:11; Admin Dose 400 MG; Start 01/25/18 at 21:00 Nystatin 1 applic BID TOP Last administered on 02/26/18 09:00; Admin Dose 1 APPLIC; Start 01/25/18 at 21:00 Pyridoxine HCl (Vitamin B6) 50 mg DAILY PO Last administered on 02/26/18 10:08; Admin Dose 50 MG; Start 01/26/18 at 09:00 Risperidone (Risperdal) 1 mg QHS PO Last administered on 02/25/18 20:03; Admin Dose 1 MG; Start 01/25/18 at 21:00 Zonisamide (Zonegran) 300 mg QHS PO Last administered on 02/25/18 20:12; Admin Dose 300 MG; Start 01/25/18 at 21:00 Eye Lubricant (Artificial Tears Oph) 1 drop Q8 BOTH EYES Last administered on 02/26/18 06:35; Admin Dose 1 DROP; Start 01/25/18 at 22:00 Miscellaneous Information (Pending [facility] Order For Wound Care) This patient woody... PRN PRN XX wound; Start 01/25/18 at 16:30 Vitamin A/Vitamin D (Vitamin A & D Oint) 1 applic BID TOP Last administered on 02/26/18 10:11; Admin Dose 1 APPLIC; Start 01/26/18 at 21:00 Docusate Sodium (Colace) 200 mg BID PO Last administered on 02/26/18 10:08; Admin Dose 200 MG; Start 01/27/18 at 21:00 Enoxaparin Sodium (Lovenox) 40 mg DAILY SC Last administered on 02/26/18 10:08; Admin Dose 40 MG; Start 01/28/18 at 09:00 Sodium Hypochlorite (Dakin'S (Dilute 1/40)) 1 applic DAILY IRR Last administered on 02/26/18 09:00; Admin Dose 1 APPLIC; Start 01/27/18 at 18:30 Collagenase (Santyl) 1 applic DAILY TOP Last administered on 02/26/18 10:09; Admin Dose 1 APPLIC; Start 01/27/18 at 17:30 Hydrocortisone (Hydrocortisone 1% Cr) 1 applic BID TOP Last administered on 02/26/18 09:00; Admin Dose 1 APPLIC; Start 01/27/18 at 21:19 Collagenase (Santyl) 1 applic DAILY TOP Last administered on 02/24/18 09:06; Admin Dose 1 APPLIC; Start 02/04/18 at 09:00 Nitroglycerin (Nitroglycerin (Sl Tab) 0.4 Mg) 1 tab Q5M PRN SL ANGINA; Start 02/05/18 at 07:00 Morphine Sulfate (morphine) 6 mg Q4H PRN PO SEVERE PAIN LEVEL 7-10 Last administered on 02/26/18 00:54; Admin Dose 6 MG; Start 02/11/18 at 20:00 Diphenhydramine HCl (Benadryl) 25 mg Q6H PRN IV itching Last administered on 02/20/18 09:57; Admin Dose 25 MG; Start 02/19/18 at 14:00 Levofloxacin/ Dextrose 100 ml @ 100 mls/hr Q24H IVPB Last administered on 02/26/18 10:14; Admin Dose 100 MLS/HR; Start 02/20/18 at 10:00 LIVIA ADAME NP Feb 26, 2018 12:46
--- NOTE | 2018-02-26 13:58 | NUR ---
WOUND CARE FOLLOW UP: Patient seen by Surgical [facility] Dr. Adan for right lateral foot wounds. Per DPM, Right proximal and distal deep tissue pressure injuries. Possible related to Kerlix. DPM ordered to cover wound with Xeroform dressing. Will continue to monitor. Delilah Ferreira, MARKON RN CWOCN
[2018-02-26 15:06] VITALS: BP 98/61; PULSE 81; RESP 18
--- NOTE | 2018-02-26 18:33 | NUR ---
Pt is alert, awake and verbally responsive. Respiration are even and non labored. Pain medication given as ordered. Tolearated well. Wound care rendered. Tolerated well. No significant changes noted. Will endorse accordingly
[2018-02-26 20:00] VITALS: BP 105/69; PULSE 87; RESP 18
[2018-02-26] MEDS: ZONISAMIDE 100 MG CAP PO SCH (21:04)
[2018-02-26] MEDS: RISPERIDONE 1 MG TAB PO SCH (21:05)
[2018-02-27] MEDS: morphine LIQ (10 MG/5 ML) CUP PO PRN ×2 (01:13→22:07)
[2018-02-27 02:00] VITALS: BP 103/63; PULSE 73; RESP 18
--- NOTE | 2018-02-27 05:27 | NUR ---
Wound care administered as ordered, patient turned Q@ Addendum: 02/27/18 at 0530 by SUE ROSALES RN Wound care administered as ordered, patient turned Q2, hourly rounding provided. Pt vitals signs remain at baseline. Pain medication administered x2 through the night with adequate relief. Benavidez remains in place, heels elevated. All needs tended to. Pt in no signs of acute distress. Will continue to monitor.
[2018-02-27] MEDS: ARTIFICIAL TEARS 15 ML OPH BOTH EYES SCH ×3 (06:17→22:05)
--- NOTE | 2018-02-27 06:46 | NUR ---
During 6 o'clock repositioning, noted patient with x2 clear fluid filled blisters on right upper thigh. Redness noted around area. Wound care consult ordered. Dr. Rizvi made aware. Unable to notify family d/t no contact information on chart. Patient was repositioned Q2H during shift. Irina, charge nurse made aware.
[2018-02-27 08:33] VITALS: BP 120/71; PULSE 80; RESP 18
[2018-02-27] MEDS: ENOXAPARIN 40 MG/0.4 ML SYG SC SCH (08:53)
[2018-02-27] MEDS: ALLOPURINOL 100 MG TAB PO SCH (08:55)
[2018-02-27] MEDS: GABAPENTIN 100 MG CAP PO SCH ×2 (08:55→21:03)
[2018-02-27] MEDS: FAMOTIDINE 20 MG TAB PO SCH ×2 (08:55→21:03)
[2018-02-27] MEDS: PYRIDOXINE 50 MG TAB PO SCH (08:55)
[2018-02-27] MEDS: FOLIC ACID 1 MG TAB PO SCH (08:55)
[2018-02-27] MEDS: DULOXETINE 30 MG CAP DR PO SCH (08:55)
[2018-02-27] MEDS: DOCUSATE SODIUM 100 MG CAP PO SCH ×2 (08:55→21:04)
[2018-02-27] MEDS: MAGNESIUM OXIDE 400 MG TAB PO SCH ×2 (08:55→21:03)
[2018-02-27] MEDS: BACLOFEN 10 MG TAB PO SCH ×3 (08:55→21:04)
[2018-02-27] MEDS: COLLAGENASE 5 GM (UD JAR) TOP SCH ×2 (08:56)
[2018-02-27] MEDS: BALSAM PERU/CASTOR OIL 60 GM TUBE TOP SCH (08:56)
[2018-02-27] MEDS: VITAMIN A & D 5 GM OINT PACKET TOP SCH ×2 (08:56→21:04)
[2018-02-27] MEDS: NYSTATIN 15 GM POWDER BTL TOP SCH ×2 (08:56→21:05)
[2018-02-27] MEDS: HYDROCORTISONE 1% 28 GM CR TOP SCH ×2 (08:56→21:05)
[2018-02-27] MEDS: SODIUM HYPOCHLORITE (1/40) 1 APPLIC BTL IRR SCH (08:56)
[2018-02-27] MEDS: LEVOFLOXACIN 500MG/D5W (PMX) 100 ML IVPB SCH (10:09)
[2018-02-27] MEDS: HYDROCODONE/APAP (5/325) TAB PO PRN ×2 (10:13→16:20)
--- NOTE | 2018-02-27 10:30 | NUR ---
OFFERED Pt TO BE TURNED TO HIS SIDE, Pt STATED "NOT RIGHT NOW, I WANT TO BE TURNED AT 1115 OR 1130", I OFFERED 1115 AND Pt WAS OK WITH THIS TIME.
--- NOTE | 2018-02-27 10:50 | PN ---
Date/Time of Note Date/Time of Note DATE: 02/27/18 TIME: 10:49 Assessment/Plan VTE Prophylaxis Risk score (from Nsg)>0 risk: 6 SCD applied (from Nsg): Yes Pharmacological prophylaxis: LMWH Lines/Catheters IV Catheter Type (from Nrsg): Saline Lock Urinary Cath still in place: Yes Reason Cath still needed: skin wounds contaminated by urine Assessment/Plan Hospital Course SUBJECTIVE: No acute overnight episodes. OBJECTIVE: Vital signs-see below PHYSICAL EXAM: Constitutional: Bedbound male, not in acute distress. Psych: nl mood/affect, no complaints Head: atraumatic, normocephalic Eyes: nl conjunctiva, nl sclera ENMT: mucosa pink and moist, nl external ears & nose Neck: non-tender, supple Respiratory: clear to auscultation, normal air movement Cardiovascular: nl pulses, regular rate and rhythm Gastrointestinal: non-tender, soft, bowel sounds active in all 4 quadrants. Musculoskeletal/extremities: Paraplegic. Normal pulses,no cyanosis, no edema. Neurological: Alert oriented 3,nl speech, nl strength Skin: Bilateral heel with ulcers, covered with dressing. No oozing noted on dressing. Nl turgor ASSESSMENT/PLAN: Very unfortunate 57-year-old male with a history of paraplegia secondary to spinal cord syndrome 6 months ago, who also resides in a senior living, presented to the emergency room with worsening bilateral heel ulcers with foul-smelling drainage 1. Bilateral heel Decub ulcers -status post excisional debridement of bilateral heel decubitus. No evidence of osteomyelitis. -pro-calcitonin level still mildly elevated, recommend continuation of IV antibiotic per podiatry recommendation. Repeat CRP/ESR trending down. -Continue wound care per podiatry recommendation with Dakin's irrigation/Xeroform/Kerlix dressing. 2. Paraplegia secondary to spinal disorder and back surgery 6 months ago -Exact nature of disorder and surgery unclear -Continue baclofen 3. Depression -Continue home Cymbalta 4. Hypertension -Continue Coreg 5. Debility secondary to #2. -Patient resides in a senior living. 6. Chronic anemia with mild iron deficiency. -Stable H&H after 1 unit transfusion. -Continue oral iron replacement. 7. Unstageable pressure ulcers, sacral coccyx -S/o bedside debridement 02/13/18 -Continue wound care Prophylaxis:Lovenox/Pepcid Diet: Regular CODE STATUS: Full code Disposition: Continue current medical management. Pending senior living placement. Labs reviewed and stable. Patient was seen in collaboration with Dr. Awad Result Diagram: 02/27/18 0844 02/27/18 0844 Results 24hrs Laboratory Tests Test 02/27/18 08:44 White Blood Count 4.3 L Red Blood Count 3.87 L Hemoglobin 9.9 L Hematocrit 31.7 L Mean Corpuscular Volume 81.9 L Mean Corpuscular Hemoglobin 25.6 L Mean Corpuscular Hemoglobin Concent 31.2 L Red Cell Distribution Width 16.8 H Platelet Count 299 Mean Platelet Volume 8.7 Immature Granulocytes % 0.500 H Neutrophils % 43.0 Lymphocytes % 36.9 Monocytes % 12.0 H Eosinophils % 6.4 Basophils % 1.2 Nucleated Red Blood Cells % 0.0 Immature Granulocytes # 0.020 Neutrophils # 1.8 Lymphocytes # 1.6 Monocytes # 0.5 Eosinophils # 0.3 Basophils # 0.1 Nucleated Red Blood Cells # 0.0 Sodium Level 141 Potassium Level 4.1 Chloride Level 110 Carbon Dioxide Level 22 Anion Gap 9 Blood Urea Nitrogen 21 H Creatinine 0.81 Est Glomerular Filtrat Rate mL/min > 60 Glucose Level 92 Calcium Level 9.5 Exam/Review of Systems Vital Signs Vitals Vital Signs Date Temp Pulse Resp B/P (MAP) Pulse Ox O2 O2 Flow FiO2 Time Delivery Rate 02/27/18 98.1 80 18 120/71 99 Room Air 08:33 (87) Intake and Output 02/26/18 02/26/18 02/27/18 1515:00 23:00 07:00 IntakeIntake Total 920 ml 400 ml OutputOutput Total 950 ml BalanceBalance 920 ml -550 ml Medications Medications Current Medications IV Flush (NS 3 ml) 3 ml PER PROTOCOL IV ; Start 01/25/18 at 15:30 Ondansetron HCl (Zofran Inj) 4 mg Q6H PRN IV NAUSEA AND/OR VOMITING; Start 01/25/18 at 15:30 Acetaminophen (Tylenol Tab) 650 mg Q6H PRN PO PAIN LEVEL 1-3 OR FEVER; Start 01/25/18 at 15:30 Acetaminophen/ Hydrocodone Bitart ([place] (5/325)) 1 tab Q6H PRN PO MODERATE PAIN LEVEL 4-6 Last administered on 02/27/18 10:13; Admin Dose 1 TAB; Start 01/25/18 at 15:30 Allopurinol (Zyloprim) 100 mg DAILY PO Last administered on 02/27/18 08:55; Admin Dose 100 MG; Start 01/26/18 at 09:00 Baclofen (Lioresal) 10 mg TID PO Last administered on 02/27/18 08:55; Admin Dose 10 MG; Start 01/25/18 at 21:00 Carvedilol (Coreg) 12.5 mg BID PO Last administered on 02/27/18 08:55; Admin Dose 12.5 MG; Start 01/25/18 at 21:00 Duloxetine HCl (Cymbalta) 30 mg DAILY PO Last administered on 02/27/18 08:55; Admin Dose 30 MG; Start 01/26/18 at 09:00 Famotidine (Pepcid) 20 mg BID PO Last administered on 02/27/18 08:55; Admin Dose 20 MG; Start 01/25/18 at 21:00 Folic Acid (Folic Acid) 1 mg DAILY PO Last administered on 02/27/18 08:55; Admin Dose 1 MG; Start 01/26/18 at 09:00 Gabapentin (Neurontin) 100 mg BID PO Last administered on 02/27/18 08:55; Admin Dose 100 MG; Start 01/25/18 at 21:00 Magnesium Oxide (Mag-Ox 400) 400 mg BID PO Last administered on 02/27/18 08:55; Admin Dose 400 MG; Start 01/25/18 at 21:00 Nystatin 1 applic BID TOP Last administered on 02/27/18 08:56; Admin Dose 1 APPLIC; Start 01/25/18 at 21:00 Pyridoxine HCl (Vitamin B6) 50 mg DAILY PO Last administered on 02/27/18 08:55; Admin Dose 50 MG; Start 01/26/18 at 09:00 Risperidone (Risperdal) 1 mg QHS PO Last administered on 02/26/18 21:05; Admin Dose 1 MG; Start 01/25/18 at 21:00 Zonisamide (Zonegran) 300 mg QHS PO Last administered on 02/26/18 21:04; Admin Dose 300 MG; Start 01/25/18 at 21:00 Eye Lubricant (Artificial Tears Oph) 1 drop Q8 BOTH EYES Last administered on 02/27/18 06:17; Admin Dose 1 DROP; Start 01/25/18 at 22:00 Miscellaneous Information (Pending Santyl Order For Wound Care) This patient woody... PRN PRN XX wound; Start 01/25/18 at 16:30 Vitamin A/Vitamin D (Vitamin A & D Oint) 1 applic BID TOP Last administered on 02/27/18 08:56; Admin Dose 1 APPLIC; Start 01/26/18 at 21:00 Docusate Sodium (Colace) 200 mg BID PO Last administered on 02/27/18 08:55; Admin Dose 200 MG; Start 01/27/18 at 21:00 Enoxaparin Sodium (Lovenox) 40 mg DAILY SC Last administered on 02/27/18 08:53; Admin Dose 40 MG; Start 01/28/18 at 09:00 Sodium Hypochlorite (Dakin'S (Dilute 1/40)) 1 applic DAILY IRR Last administered on 02/27/18 08:56; Admin Dose 1 APPLIC; Start 01/27/18 at 18:30 Collagenase (Santyl) 1 applic DAILY TOP Last administered on 02/27/18 08:56; Admin Dose 1 APPLIC; Start 01/27/18 at 17:30 Hydrocortisone (Hydrocortisone 1% Cr) 1 applic BID TOP Last administered on 02/27/18 08:56; Admin Dose 1 APPLIC; Start 01/27/18 at 21:19 Collagenase (Santyl) 1 applic DAILY TOP Last administered on 02/27/18 08:56; Admin Dose 1 APPLIC; Start 02/04/18 at 09:00 Nitroglycerin (Nitroglycerin (Sl Tab) 0.4 Mg) 1 tab Q5M PRN SL ANGINA; Start 02/05/18 at 07:00 Morphine Sulfate (morphine) 6 mg Q4H PRN PO SEVERE PAIN LEVEL 7-10 Last administered on 02/27/18 01:13; Admin Dose 6 MG; Start 02/11/18 at 20:00 Diphenhydramine HCl (Benadryl) 25 mg Q6H PRN IV itching Last administered on 02/20/18 09:57; Admin Dose 25 MG; Start 02/19/18 at 14:00 Levofloxacin/ Dextrose 100 ml @ 100 mls/hr Q24H IVPB Last administered on 02/27/18at 10:09; Admin Dose 100 MLS/HR; Start 02/20/18 at 10:00 LIVIA ADAEM NP Feb 27, 2018 10:50
--- NOTE | 2018-02-27 11:01 | NUR ---
SNF PLACEMENT:DENIED BY SNFS: REASON: THE AMOUNT OF WOUNDS IS TOO MUCH ACUITY FOR SNF LEVEL REFERRALS:[facility] GRAJEDA , [facility] HORTON, [facility]. AWAITS ACCEPTANCE. Addendum: 02/27/18 at 1108 by GENOVEVA GONSALES Amended: Links added.
--- NOTE | 2018-02-27 12:17 | NUR ---
WOUND CONSULT FOR THIGH BLISTERS: - Left upper thigh flatten blood blister under adhesive of StatLock per discovered RN. 1cmx [id number]. No drainage. No odor. - Right upper thigh intact serum filled blisters x 2. Per photo documentation on 02/27/18 @0600, photo shows skin irritation redness from StatLock adhesive. Noticed multiple area of redness and blisters in the photo documentation. Recommended to cover Left and Right upper thigh blisters with Foam border dressing. Change every 3 days. Assess wound under dressing every shift. Discussed assessment and plan of care with RNAnna. Delilah Ferreira, BSN RN CWOCN
--- NOTE | 2018-02-27 13:27 | PN ---
Date/Time of Note Date/Time of Note DATE: 02/27/18 TIME: 13:24 Assessment/Plan Lines/Catheters IV Catheter Type (from [facility]): Saline Lock Benavidez in Place (from [facility]): Yes Assessment/Plan Chief Complaint/Hosp Course 1. Stage 3 necrotic wound: Noted with stool contamination s/p repeat excisional debridement 02/20; now with noted blisters -cont local care> Santyl > consider follow ups at wound care clinic near where he will be discharged -frequent turning and off-loading -low air loss mattress -vitamin c -short term zinc -optimize nutrition -keep area clean as possible and free from stool -skin protection against devices 2. Bilateral lower extremity ulcers: -As above -Per podiatry 3. Hypochromic microcytic anemia: -Monitor and transfuse as needed 4. Depression: -Psychiatric optimization 5. Paraplegia -Supportive 6. Hypertension -nutrition and medication optimization Thank you. Patient seen and examined in collaboration with Dr. Brian Angulo. Subjective 24 Hr Interval Summary Feels well. New noted blister on thigh. No fevers, chills, sob, congested cough, cp, palpitations, woody, dizziness, n/v/d/dysuria, wound odor or dressing. Exam/Review of Systems Vital Signs Vitals Vital Signs Date Temp Pulse Resp B/P (MAP) Pulse Ox O2 O2 Flow FiO2 Time Delivery Rate 02/27/18 98.1 80 18 120/71 99 Room Air 08:33 (87) Intake and Output 02/26/18 02/26/18 02/27/18 1515:00 23:00 07:00 IntakeIntake Total 920 ml 400 ml OutputOutput Total 950 ml BalanceBalance 920 ml -550 ml Exam Free Text/Dictation Constitutional: alert, oriented Psych: nl mood/affect, anxiety (Minimal) Head: normocephalic, atraumatic Eyes: nl conjunctiva, EOMI, nl sclera ENMT: nl external ears & nose, nl lips & teeth, mucosa pink and moist Neck: supple, non-tender Respiratory: normal air movement; No congested cough Cardiovascular: regular rate and rhythm; No edema Gastrointestinal: soft, non-tender; No distended Musculoskeletal: nl extremities to inspection; No nl gait and stance Extremities: normal pulses; No edema Neurological: nl mental status, nl speech Skin: nl turgor, Sacral wound packed, no periwound erythema, no drainage, min slough; bilateral lower extremity ulcers: Wrapped Results Result Diagram: 02/27/18 0844 02/27/18 0844 FERNANDO DÍAZ NP Feb 27, 2018 13:27
--- NOTE | 2018-02-27 14:11 | NUR ---
PT NOTE Therapy day number 10 Subjective Current complaint of pain Pain Scale NUMERIC Pain Intensity 5 (0-10) Patient Stated Goal for Pain Relief 0 (0-10) Pain Level Comment generalized pain Exercise Assessment Label Bilat Lower Extremity Exercise Type Manual Stretching Additional Exercise Comments B LE in all planes Exercise Assessment Label Bilat Upper Extremity Exercise Type Active ROM Additional Exercise Comments shoulder depression/tricep extension in sitting Exercise Start Time 13:30 Exercise End Time 13:55 Total Exercise Time 25 min (8-127) Transfer Training Start Time 13:55 Supine to Sit Maximum Assist Bed Mobility Sit to Supine Maximum Assist Sitting Tolerance 15 min Additional Mobility Comments pressure relief, rolling L and R with 1P modA; supine<>sit 2PA Transfer Training End Time 14:11 Total Transfer Training Time 16 min (8-127) Static Sitting Balance Fair plus Dynamic Sitting Balance Fair minus Additional Balance Assessments Comments seated balance exercises without UE support: lateral leans, AP lean, pertur Safety Judgement Fair Activity Tolerance Fair Equipment Present Benavidez Catheter Post Treatment Pain Intensity 5 0-10 Variance Documentation SEE BELOW Total Treament Time 41 min (8-127) Total Minutes 41 Total Units 3 PT Technical Record Comment PT NOTE S: Pt expressed he is discouraged by progress, educated in [id number] progression to improve mobility O: NEELA Castillo cleared pt for PT session. Pt received in bed, agreeable to PT. Pt participated in interventions above including pressure relief training (rolling), seated balance exercises, manual stretching of B LE, UE pushing strength exercises. Pt returned to supine in bed, offloaded from L side, elbows offloaded, B heels offloaded, no signs of distress. RN notified of pt's status. A: Pt demonstrates improved static sitting balance, able to maintain without assistance and without UE support, though continues to have difficulty maintaining balance when leaning posteriorly. Noted B LE flaccidity with sponataneous movement into hip flex/extension. P: Continue c PT POC
[2018-02-27 14:43] VITALS: BP 95/57; PULSE 84; RESP 18
--- NOTE | 2018-02-27 18:47 | NUR ---
VSS throughout shift. Tolerating current treatment regimen. Pt reportedly in significant amounts of pain after PT, wanted wound care at a later time. Pt repositioned about every 2 hours at times requesting for RN ans OYSTER OPENER to come back. Refused wedge pillow. Unable to complete wound care, endorsing to next shift to complete. Pending placement.
[2018-02-27 19:48] VITALS: BP 105/66; PULSE 79; RESP 18
[2018-02-27 21:02] VITALS: BP 119/64; PULSE 81
[2018-02-27] MEDS: ZONISAMIDE 100 MG CAP PO SCH (21:03)
[2018-02-27] MEDS: RISPERIDONE 1 MG TAB PO SCH (21:04)
--- NOTE | 2018-02-27 22:00 | NUR ---
pt alert,oriented x4. wound care done as ordered, tolerated well
[2018-02-27] MEDS ORDERED: HYDROmorphONE 0.5 MG/0.5 ML SYG IV ONE (23:44)
[2018-02-28 01:57] VITALS: BP 110/58; PULSE 75; RESP 18
[2018-02-28] MEDS: ARTIFICIAL TEARS 15 ML OPH BOTH EYES SCH ×3 (05:51→22:34)
[2018-02-28] MEDS: morphine LIQ (10 MG/5 ML) CUP PO PRN (05:53)
--- NOTE | 2018-02-28 07:06 | NUR ---
pt alert,oriented x4, no sob, w/ intermittent pain on shoulder, pain medication given as prescribed, effective. repositioning done. kept heels elevated w/ pillows alternate w/ boots helix every 2 hours
[2018-02-28 08:37] VITALS: BP 126/73; PULSE 70; RESP 18
--- NOTE | 2018-02-28 08:54 | NUR ---
NUTRITION NOTE: Rec to add daily MVI and Vit C therapy; zinc sulfate x 10 days to promote wound healing. Will continue to offer Gregg BID.
[2018-02-28] MEDS: COLLAGENASE 5 GM (UD JAR) TOP SCH ×2 (09:00)
[2018-02-28] MEDS: HYDROCORTISONE 1% 28 GM CR TOP SCH ×2 (09:00→20:50)
[2018-02-28] MEDS: BALSAM PERU/CASTOR OIL 60 GM TUBE TOP SCH (09:00)
[2018-02-28] MEDS: VITAMIN A & D 5 GM OINT PACKET TOP SCH ×2 (09:00→20:48)
[2018-02-28] MEDS: SODIUM HYPOCHLORITE (1/40) 1 APPLIC BTL IRR SCH (09:00)
[2018-02-28] MEDS: DOCUSATE SODIUM 100 MG CAP PO SCH ×2 (09:46→20:48)
[2018-02-28] MEDS: BACLOFEN 10 MG TAB PO SCH ×3 (09:46→20:49)
[2018-02-28] MEDS: DULOXETINE 30 MG CAP DR PO SCH (09:46)
[2018-02-28] MEDS: GABAPENTIN 100 MG CAP PO SCH ×2 (09:46→20:49)
[2018-02-28] MEDS: MAGNESIUM OXIDE 400 MG TAB PO SCH ×2 (09:46→20:49)
[2018-02-28] MEDS: HYDROCODONE/APAP (5/325) TAB PO PRN ×2 (09:46→20:04)
[2018-02-28] MEDS: FAMOTIDINE 20 MG TAB PO SCH ×2 (09:46→20:49)
[2018-02-28] MEDS: PYRIDOXINE 50 MG TAB PO SCH (09:46)
[2018-02-28] MEDS: FOLIC ACID 1 MG TAB PO SCH (09:46)
[2018-02-28] MEDS: ALLOPURINOL 100 MG TAB PO SCH (09:46)
[2018-02-28] MEDS: ENOXAPARIN 40 MG/0.4 ML SYG SC SCH (09:48)
[2018-02-28] MEDS: NYSTATIN 15 GM POWDER BTL TOP SCH ×2 (09:51→20:50)
[2018-02-28] MEDS: LEVOFLOXACIN 500MG/D5W (PMX) 100 ML IVPB SCH (11:18)
[2018-02-28 14:45] VITALS: BP 96/52; PULSE 78; RESP 18
--- NOTE | 2018-02-28 17:27 | PN ---
Date/Time of Note Date/Time of Note DATE: 02/28/18 TIME: 17:25 Assessment/Plan VTE Prophylaxis Risk score (from Ns)>0 risk: 4 SCD applied (from Ns): Yes Pharmacological prophylaxis: heparin Lines/Catheters IV Catheter [facility]from [facility] Saline Lock Urinary Cath still in place: Yes Reason Cath still needed: skin wounds contaminated by urine Assessment/Plan Problems: (1) Diabetes mellitus type 2 in nonobese Status: Chronic Comment: Adequate control under the current regimen (2) Essential hypertension Status: Chronic Comment: Adequate control at this time (3) Dysthymia Status: Chronic Comment: Stable on medication therapy (4) Decubitus ulcer of left heel, stage 1 Status: Chronic Comment: Progressing nicely with assistance from podiatry (5) Decubitus ulcer of right heel, unstageable Status: Chronic Comment: This actually remains the impediment for discharge planning. Continue with wound care team and podiatry (6) Decubitus ulcer of sacral area Status: Chronic Comment: Under treatment Qualifiers: Pressure injury stage: stage 3 Qualified Codes: L89.153 - Pressure ulcer of sacral region, stage 3 Result Diagram: 02/27/18 0844 02/27/18 0844 Subjective 24 Hr Interval Summary Free Text/Dictation Patient reports he is doing about the same. Constitutional: no complaints (No fevers chills or sweats) Respiratory: no complaints Cardiovascular: no complaints Gastrointestinal: no complaints Exam/Review of Systems Vital Signs Vitals Vital Signs Date Temp Pulse Resp B/P (MAP) Pulse Ox O2 O2 Flow FiO2 Time Delivery Rate 02/28/18 98.0 78 18 96/52 (67) 96 Room Air 14:45 Intake and Output 02/27/18 02/27/18 02/28/18 1515:00 23:00 07:00 IntakeIntake Total 1140 ml 680 ml OutputOutput Total 3000 ml 1500 ml BalanceBalance -1860 ml -820 ml Exam Constitutional: alert, oriented Respiratory: clear to auscultation, normal air movement Cardiovascular: regular rate and rhythm, nl pulses Gastrointestinal: soft Medications Medications Current Medications IV Flush (NS 3 ml) 3 ml PER PROTOCOL IV ; Start 01/25/18 at 15:30 Ondansetron HCl (Zofran Inj) 4 mg Q6H PRN IV NAUSEA AND/OR VOMITING; Start 01/25/18 at 15:30 Acetaminophen (Tylenol Tab) 650 mg Q6H PRN PO PAIN LEVEL 1-3 OR FEVER; Start 01/25/18 at 15:30 Acetaminophen/ Hydrocodone Bitart ([place] (5/325)) 1 tab Q6H PRN PO MODERATE PAIN LEVEL 4-6 Last administered on 02/28/18 09:46; Admin Dose 1 TAB; Start 01/25/18 at 15:30 Allopurinol (Zyloprim) 100 mg DAILY PO Last administered on 02/28/18 09:46; Admin Dose 100 MG; Start 01/26/18 at 09:00 Baclofen (Lioresal) 10 mg TID PO Last administered on 02/28/18 13:00; Admin Dose 10 MG; Start 01/25/18 at 21:00 Carvedilol (Coreg) 12.5 mg BID PO Last administered on 02/28/18 09:47; Admin Dose 12.5 MG; Start 01/25/18 at 21:00 Duloxetine HCl (Cymbalta) 30 mg DAILY PO Last administered on 02/28/18 09:46; Admin Dose 30 MG; Start 01/26/18 at 09:00 Famotidine (Pepcid) 20 mg BID PO Last administered on 02/28/18 09:46; Admin Dose 20 MG; Start 01/25/18 at 21:00 Folic Acid (Folic Acid) 1 mg DAILY PO Last administered on 02/28/18 09:46; Admin Dose 1 MG; Start 01/26/18 at 09:00 Gabapentin (Neurontin) 100 mg BID PO Last administered on 02/28/18 09:46; Admin Dose 100 MG; Start 01/25/18 at 21:00 Magnesium Oxide (Mag-Ox 400) 400 mg BID PO Last administered on 02/28/18 09:46; Admin Dose 400 MG; Start 01/25/18 at 21:00 Nystatin 1 applic BID TOP Last administered on 02/28/18 09:51; Admin Dose 1 APPLIC; Start 01/25/18 at 21:00 Pyridoxine HCl (Vitamin B6) 50 mg DAILY PO Last administered on 02/28/18 09:46; Admin Dose 50 MG; Start 01/26/18 at 09:00 Risperidone (Risperdal) 1 mg QHS PO Last administered on 02/27/18 21:04; Admin Dose 1 MG; Start 01/25/18 at 21:00 Zonisamide (Zonegran) 300 mg QHS PO Last administered on 02/27/18 21:03; Admin Dose 300 MG; Start 01/25/18 at 21:00 Eye Lubricant (Artificial Tears Oph) 1 drop Q8 BOTH EYES Last administered on 02/28/18 14:52; Admin Dose 1 DROP; Start 01/25/18 at 22:00 Miscellaneous Information (Pending Santyl Order For Wound Care) This patient woody... PRN PRN XX wound; Start 01/25/18 at 16:30 Vitamin A/Vitamin D (Vitamin A & D Oint) 1 applic BID TOP Last administered on 02/28/18 09:00; Admin Dose 1 APPLIC; Start 01/26/18 at 21:00 Docusate Sodium (Colace) 200 mg BID PO Last administered on 02/28/18 09:46; Admin Dose 200 MG; Start 01/27/18 at 21:00 Enoxaparin Sodium (Lovenox) 40 mg DAILY SC Last administered on 02/28/18at 0 9:48; Admin Dose 40 MG; Start 01/28/18 at 09:00 Sodium Hypochlorite (Dakin'S (Dilute 1/40)) 1 applic DAILY IRR Last administered on 02/27/18 08:56; Admin Dose 1 APPLIC; Start 01/27/18 at 18:30 Collagenase (Santyl) 1 applic DAILY TOP Last administered on 02/27/18 08:56; Admin Dose 1 APPLIC; Start 01/27/18 at 17:30 Hydrocortisone (Hydrocortisone 1% Cr) 1 applic BID TOP Last administered on 02/28/18 09:00; Admin Dose 1 APPLIC; Start 01/27/18 at 21:19 Collagenase (Santyl) 1 applic DAILY TOP Last administered on 02/27/18 08:56; Admin Dose 1 APPLIC; Start 02/04/18 at 09:00 Nitroglycerin (Nitroglycerin (Sl Tab) 0.4 Mg) 1 tab Q5M PRN SL ANGINA; Start 02/05/18 at 07:00 Morphine Sulfate (morphine) 6 mg Q4H PRN PO SEVERE PAIN LEVEL 7-10 Last administered on 12/29/18at 05:53; Admin Dose 6 MG; Start 02/11/18 at 20:00 Diphenhydramine HCl (Benadryl) 25 mg Q6H PRN IV itching Last administered on 02/20/18at 09:57; Admin Dose 25 MG; Start 02/19/18 at 14:00 Levofloxacin/ Dextrose 100 ml @ 100 mls/hr Q24H IVPB Last administered on 02/28/18at 11:18; Admin Dose 100 MLS/HR; Start 02/20/18 at 10:00 BERTIN EATON MD Feb 28, 2018 17:27
--- NOTE | 2018-02-28 18:07 | NUR ---
Patient with stable vitals throughout shift. Attempted to turn every 2 hours but patient refused at 1400 saying he already did. Wound care will be endorsed to PM RN due to patient wanting later in the day. Refusing repositioning with wedge pillow. Pain medication given 1 time when requested. Endorsing care to next shift
[2018-02-28 20:00] VITALS: BP 109/65; PULSE 83; RESP 18
[2018-02-28] MEDS: RISPERIDONE 1 MG TAB PO SCH (20:49)
[2018-02-28] MEDS: ZONISAMIDE 100 MG CAP PO SCH (20:49)
[2018-03-01 02:00] VITALS: BP 117/62; PULSE 88; RESP 18
[2018-03-01] MEDS: HYDROCODONE/APAP (5/325) TAB PO PRN ×3 (03:34→19:53)
--- NOTE | 2018-03-01 05:38 | NUR ---
Pt turned and repositioned q2 hours, pain medication administered x2 during my shift with adequate relief. Am shift endorsed wound care, provided wound care as needed and as ordered. Hourly rounding provided. Pt vitals remained at baseline through the night. Fall precautions implemented. Will continue to monitor and will endorse care plan to next shift.
[2018-03-01] MEDS: ARTIFICIAL TEARS 15 ML OPH BOTH EYES SCH ×3 (06:19→19:56)
[2018-03-01] MEDS: morphine LIQ (10 MG/5 ML) CUP PO PRN (06:23)
[2018-03-01 08:36] VITALS: BP 110/69; PULSE 80; RESP 17
[2018-03-01] MEDS: FAMOTIDINE 20 MG TAB PO SCH ×2 (08:51→20:04)
[2018-03-01] MEDS: GABAPENTIN 100 MG CAP PO SCH ×2 (08:51→19:57)
[2018-03-01] MEDS: PYRIDOXINE 50 MG TAB PO SCH (08:51)
[2018-03-01] MEDS: MAGNESIUM OXIDE 400 MG TAB PO SCH ×2 (08:51→19:57)
[2018-03-01] MEDS: DULOXETINE 30 MG CAP DR PO SCH (08:51)
[2018-03-01] MEDS: BACLOFEN 10 MG TAB PO SCH ×3 (08:51→19:58)
[2018-03-01] MEDS: FOLIC ACID 1 MG TAB PO SCH (08:51)
[2018-03-01] MEDS: ALLOPURINOL 100 MG TAB PO SCH (08:51)
[2018-03-01] MEDS: VITAMIN A & D 5 GM OINT PACKET TOP SCH ×2 (08:52→21:21)
[2018-03-01] MEDS: ENOXAPARIN 40 MG/0.4 ML SYG SC SCH (08:54)
[2018-03-01] MEDS: DOCUSATE SODIUM 100 MG CAP PO SCH ×2 (08:57→19:56)
[2018-03-01] MEDS: COLLAGENASE 5 GM (UD JAR) TOP SCH ×2 (08:58)
[2018-03-01] MEDS: SODIUM HYPOCHLORITE (1/40) 1 APPLIC BTL IRR SCH (08:58)
[2018-03-01] MEDS: NYSTATIN 15 GM POWDER BTL TOP SCH ×2 (08:58→21:15)
[2018-03-01] MEDS: BALSAM PERU/CASTOR OIL 60 GM TUBE TOP SCH (08:59)
[2018-03-01] MEDS: HYDROCORTISONE 1% 28 GM CR TOP SCH ×2 (09:00→21:16)
[2018-03-01] MEDS: LEVOFLOXACIN 500MG/D5W (PMX) 100 ML IVPB SCH (09:13)
--- NOTE | 2018-03-01 09:51 | PN ---
Date/Time of Note Date/Time of Note DATE: 03/01/18 TIME: 09:48 Assessment/Plan VTE Prophylaxis Risk score (from Ns)>0 risk: 6 SCD applied (from Ns): Yes Pharmacological prophylaxis: heparin Lines/Catheters IV Catheter Type (from Nrsg): Saline Lock Urinary Cath still in place: Yes Reason Cath still needed: urinary retention Assessment/Plan Problems: (1) Paraplegia Status: Chronic Comment: Regrettably this appears to be a permanent situation which will affect placement. Waiting on her consultants to give us thorough plans for management of the skin wounds (2) Diabetes mellitus type 2 in nonobese Status: Chronic Comment: Adequate glycemic control (3) Essential hypertension Status: Chronic Comment: Adequate control. (4) Dysthymia Status: Chronic Comment: Under the circumstances the patient is moderately well adjusted (5) Decubitus ulcer of sacral area Status: Chronic Comment: General surgery consultation for assistance Qualifiers: Pressure injury stage: stage 3 Qualified Codes: L89.153 - Pressure ulcer of sacral region, stage 3 (6) Decubitus ulcer of left heel, stage 1 Status: Chronic Comment: Podiatry is involved (7) Decubitus ulcer of right heel, unstageable Status: Chronic Comment: Podiatry is involved Result Diagram: 02/27/18 0844 02/27/18 0844 Subjective 24 Hr Interval Summary Free Text/Dictation Patient reports no changes. Constitutional: no complaints (No fevers chills or sweats) Respiratory: no complaints (No cough no wheezing no shortness of breath) Cardiovascular: no complaints (No chest pain no palpitations no PND no ortho pnea) Gastrointestinal: no complaints Exam/Review of Systems Vital Signs Vitals Vital Signs Date Temp Pulse Resp B/P (MAP) Pulse Ox O2 O2 Flow FiO2 Time Delivery Rate 03/01/18 98.2 80 17 110/69 99 Room Air 08:36 (83) Intake and Output 02/28/18 02/28/18 03/01/18 1414:59 22:59 06:59 IntakeIntake Total 1060 ml 480 ml OutputOutput Total 1250 ml 1500 ml BalanceBalance 1060 ml -770 ml -1500 ml Exam Constitutional: alert, oriented Neck: supple, non-tender Respiratory: clear to auscultation, normal air movement Cardiovascular: regular rate and rhythm, nl pulses Gastrointestinal: soft, nl liver, spleen, non-tender Extremities: other (Bilateral heel protector apparatus.) Medications Medications Current Medications IV Flush (NS 3 ml) 3 ml PER PROTOCOL IV ; Start 01/25/18 at 15:30 Ondansetron HCl (Zofran Inj) 4 mg Q6H PRN IV NAUSEA AND/OR VOMITING; Start 01/25/18 at 15:30 Acetaminophen (Tylenol Tab) 650 mg Q6H PRN PO PAIN LEVEL 1-3 OR FEVER; Start 01/25/18 at 15:30 Acetaminophen/ Hydrocodone Bitart ([place] (5/325)) 1 tab Q6H PRN PO MODERATE PAIN LEVEL 4-6 Last administered on 03/01/18 03:34; Admin Dose 1 TAB; Start 01/25/18 at 15:30 Allopurinol (Zyloprim) 100 mg DAILY PO Last administered on 03/01/18 08:51; Admin Dose 100 MG; Start 01/26/18 at 09:00 Baclofen (Lioresal) 10 mg TID PO Last administered on 03/01/18 08:51; Admin Dose 10 MG; Start 01/25/18 at 21:00 Carvedilol (Coreg) 12.5 mg BID PO Last administered on 03/01/18 08:52; Admin Dose 12.5 MG; Start 01/25/18 at 21:00 Duloxetine HCl (Cymbalta) 30 mg DAILY PO Last administered on 03/01/18 08:51; Admin Dose 30 MG; Start 01/26/18 at 09:00 Famotidine (Pepcid) 20 mg BID PO Last administered on 03/01/18 08:51; Admin Dose 20 MG; Start 01/25/18 at 21:00 Folic Acid (Folic Acid) 1 mg DAILY PO Last administered on 03/01/18 08:51; Admin Dose 1 MG; Start 01/26/18 at 09:00 Gabapentin (Neurontin) 100 mg BID PO Last administered on 03/01/18 08:51; Admin Dose 100 MG; Start 01/25/18 at 21:00 Magnesium Oxide (Mag-Ox 400) 400 mg BID PO Last administered on 03/01/18at 08:51; Admin Dose 400 MG; Start 01/25/18 at 21:00 Nystatin 1 applic BID TOP Last administered on 03/01/18 08:58; Admin Dose 1 APPLIC; Start 01/25/18 at 21:00 Pyridoxine HCl (Vitamin B6) 50 mg DAILY PO Last administered on 03/01/18 08:51; Admin Dose 50 MG; Start 01/26/18 at 09:00 Risperidone (Risperdal) 1 mg QHS PO Last administered on 02/28/18 20:49; Admin Dose 1 MG; Start 01/25/18 at 21:00 Zonisamide (Zonegran) 300 mg QHS PO Last administered on 02/28/18 20:49; Admin Dose 300 MG; Start 01/25/18 at 21:00 Eye Lubricant (Artificial Tears Oph) 1 drop Q8 BOTH EYES Last administered on 03/01/18 06:19; Admin Dose 1 DROP; Start 01/25/18 at 22:00 Miscellaneous Information (Pending Santyl Order For Wound Care) This patient woody... PRN PRN XX wound; Start 01/25/18 at 16:30 Vitamin A/Vitamin D (Vitamin A & D Oint) 1 applic BID TOP Last administered on 03/01/18 08:52; Admin Dose 1 APPLIC; Start 01/26/18 at 21:00 Docusate Sodium (Colace) 200 mg BID PO Last administered on 03/01/18 08:57; Admin Dose 200 MG; Start 01/27/18 at 21:00 Enoxaparin Sodium (Lovenox) 40 mg DAILY SC Last administered on 03/01/18 08:54; Admin Dose 40 MG; Start 01/28/18 at 09:00 Sodium Hypochlorite (Dakin'S (Dilute 1/40)) 1 applic DAILY IRR Last administered on 02/27/18 08:56; Admin Dose 1 APPLIC; Start 01/27/18 at 18:30 Collagenase (Santyl) 1 applic DAILY TOP Last administered on 02/27/18 08:56; Admin Dose 1 APPLIC; Start 01/27/18 at 17:30 Hydrocortisone (Hydrocortisone 1% Cr) 1 applic BID TOP Last administered on 03/01/18 09:00; Admin Dose 1 APPLIC; Start 01/27/18 at 21:19 Collagenase (Santyl) 1 applic DAILY TOP Last administered on 02/27/18 08:56; Admin Dose 1 APPLIC; Start 02/04/18 at 09:00 Nitroglycerin (Nitroglycerin (Sl Tab) 0.4 Mg) 1 tab Q5M PRN SL ANGINA; Start 02/05/18 at 07:00 Morphine Sulfate (morphine) 6 mg Q4H PRN PO SEVERE PAIN LEVEL 7-10 Last administered on 03/01/18 06:23; Admin Dose 6 MG; Start 02/11/18 at 20:00 Diphenhydramine HCl (Benadryl) 25 mg Q6H PRN IV itching Last administered on 02/20/18at 09:57; Admin Dose 25 MG; Start 02/19/18 at 14:00 Levofloxacin/ Dextrose 100 ml @ 100 mls/hr Q24H IVPB Last administered on 03/01/18 09:13; Admin Dose 100 MLS/HR; Start 02/20/18 at 10:00 BERTIN EATON MD Mar 01, 2018 09:51
--- NOTE | 2018-03-01 17:56 | NUR ---
END SHIFT NOTES patient is alert and oriented X4, verbally responsive and able to make needs known, no s/s of acute distress noted. complains of pain and medicated as ordered and effective. all due medicine given and all needs attended to. turned and repositioned as scheduled and dressing kept clean and intact. call light placed within reach and fall precautions observed well. remains afebrile and will continue to monitor.
[2018-03-01] MEDS: RISPERIDONE 1 MG TAB PO SCH (19:57)
[2018-03-01] MEDS: ZONISAMIDE 100 MG CAP PO SCH (19:58)
[2018-03-01 20:00] VITALS: BP 119/67; PULSE 81; RESP 18
--- NOTE | 2018-03-02 00:41 | NUR ---
191 Pt received aaox4 and able to make needs known. No s/s of distress noted. Pt oriented to manager massage department nurse and [facility] safety protocol including hourly rounding and an active bed alarm. Pt verbalized understanding. Pt complains of bilateral shoulder pain(stiffness), pt educated on next available dose of prn pain medication, pt nodded in understanding. 1954 Pt medicated for shoulder pain/stiffness as ordered. 1999 All scheduled medications administered w/o difficulty whole with water. 2099 Pt comfortable in bed watching TV. Pt denies needs at this time, nursing will continue to monitor. Addendum: 03/02/18 at 0701 by JAZ PALMA RN 0000 Pt denies needs at this time. Pt turned q2 hours by brake repairer bus and rn to prevent further skin integrity breakdown. 0300 Wound care of the bilateral heels completed. Sacral wound dressing changed. appox. 0600 Pt medicated for pain/discomfort of the sacral area. Pt had no significant changes throughout the shift. Nursing will continue to monitor and endorse to morning shift to ensure continuity of care.
[2018-03-02 02:00] VITALS: BP 103/61; PULSE 84; RESP 18
[2018-03-02] MEDS: ARTIFICIAL TEARS 15 ML OPH BOTH EYES SCH ×3 (06:03→22:29)
[2018-03-02] MEDS: HYDROCODONE/APAP (5/325) TAB PO PRN ×3 (06:05→20:26)
[2018-03-02 08:00] VITALS: BP 114/71; PULSE 66; RESP 20
--- NOTE | 2018-03-02 08:24 | PN ---
Date/Time of Note Date/Time of Note DATE: 03/02/18 TIME: 08:23 Assessment/Plan VTE Prophylaxis Risk score (from Nsg)>0 risk: 6 SCD applied (from Nsg): Yes Pharmacological prophylaxis: LMWH Lines/Catheters IV Catheter Type (from Nrsg): Saline Lock Urinary Cath still in place: Yes Reason Cath still needed: skin wounds contaminated by urine Assessment/Plan Hospital Course SUBJECTIVE: No acute overnight episodes. OBJECTIVE: Vital signs-see below PHYSICAL EXAM: Constitutional: Bedbound male, not in acute distress. Psych: nl mood/affect, no complaints Head: atraumatic, normocephalic Eyes: nl conjunctiva, nl sclera ENMT: mucosa pink and moist, nl external ears & nose Neck: non-tender, supple Respiratory: clear to auscultation, normal air movement Cardiovascular: nl pulses, regular rate and rhythm Gastrointestinal: non-tender, soft, bowel sounds active in all 4 quadrants. Musculoskeletal/extremities: Paraplegic. Normal pulses,no cyanosis, no edema. Neurological: Alert oriented 3,nl speech, nl strength Skin: Bilateral heel with ulcers, covered with dressing. No oozing noted on dressing. Nl turgor ASSESSMENT/PLAN: Very unfortunate 57-year-old male with a history of paraplegia secondary to spinal cord syndrome 6 months ago, who also [facility] in a jail, presented to the emergency room with worsening bilateral heel ulcers with foul-smelling drainage 1. Bilateral heel Decub ulcers -status post excisional debridement of bilateral heel decubitus. No evidence of osteomyelitis. -pro-calcitonin level still mildly elevated, recommend continuation of IV antibiotic per podiatry recommendation. Repeat CRP/ESR/Procalcitonin trending down. -Continue wound care per podiatry recommendation with Dakin's irrigation/Xeroform/Kerlix dressing. 2. Paraplegia secondary to spinal disorder and back surgery 6 months ago -Exact nature of disorder and surgery unclear -Continue baclofen 3. Depression -Continue home Cymbalta 4. Hypertension -Continue Coreg 5. Debility secondary to #2. -Patient resides in a jail. 6. Chronic anemia with mild iron deficiency. -Stable H&H after 1 unit transfusion. -Continue oral iron replacement. 7. Unstageable pressure ulcers, sacral coccyx -S/o bedside debridement 02/13/18 -Continue wound care Prophylaxis:Lovenox/Pepcid Diet: Regular CODE STATUS: Full code Disposition: Continue current medical management. cont abx per podiatry recs. Will repeat labs in a week to determine abx discontinuation. Pending jail placement. Patient was seen in collaboration with Dr. Awad Cont Hosp Indication/DC Plan: placement Result Diagram: 02/27/1844 02/27/1844 Exam/Review of Systems Vital Signs Vitals Vital Signs Date Temp Pulse Resp B/P (MAP) Pulse Ox O2 O2 Flow FiO2 Time Delivery Rate 03/02/18 97.6 84 18 103/61 98 02:00 (75) 03/01/18 Room Air 08:36 Intake and Output 03/01/18 03/01/18 03/02/18 1515:00 23:00 07:00 IntakeIntake Total 100 ml 920 ml 240 ml OutputOutput Total 1000 ml BalanceBalance 100 ml -80 ml 240 ml Medications Medications Current Medications IV Flush (NS 3 ml) 3 ml PER PROTOCOL IV ; Start 01/25/18 at 15:30 Ondansetron HCl (Zofran Inj) 4 mg Q6H PRN IV NAUSEA AND/OR VOMITING; Start 01/25/18 at 15:30 Acetaminophen (Tylenol Tab) 650 mg Q6H PRN PO PAIN LEVEL 1-3 OR FEVER; Start 01/25/18 at 15:30 Acetaminophen/ Hydrocodone Bitart ([place] (5/325)) 1 tab Q6H PRN PO MODERATE PAIN LEVEL 4-6 Last administered on 03/02/18at 06:05; Admin Dose 1 TAB; Start 01/25/18 at 15:30 Allopurinol (Zyloprim) 100 mg DAILY PO Last administered on 03/01/18at 08:51; Admin Dose 100 MG; Start 01/26/18 at 09:00 Baclofen (Lioresal) 10 mg TID PO Last administered on 03/01/18at 19:58; Admin Dose 10 MG; Start 01/25/18 at 21:00 Carvedilol (Coreg) 12.5 mg BID PO Last administered on 03/01/18at 20:02; Admin Dose 12.5 MG; Start 01/25/18 at 21:00 Duloxetine HCl (Cymbalta) 30 mg DAILY PO Last administered on 03/01/18at 08:51; Admin Dose 30 MG; Start 01/26/18 at 09:00 Famotidine (Pepcid) 20 mg BID PO Last administered on 03/01/18 20:04; Admin Dose 20 MG; Start 01/25/18 at 21:00 Folic Acid (Folic Acid) 1 mg DAILY PO Last administered on 03/01/18 08:51; Admin Dose 1 MG; Start 01/26/18 at 09:00 Gabapentin (Neurontin) 100 mg BID PO Last administered on 03/01/18 19:57; Admin Dose 100 MG; Start 01/25/18 at 21:00 Magnesium Oxide (Mag-Ox 400) 400 mg BID PO Last administered on 03/01/18 19:57; Admin Dose 400 MG; Start 01/25/18 at 21:00 Nystatin 1 applic BID TOP Last administered on 03/01/18 21:15; Admin Dose 1 APPLIC; Start 01/25/18 at 21:00 Pyridoxine HCl (Vitamin B6) 50 mg DAILY PO Last administered on 03/01/18 08:51; Admin Dose 50 MG; Start 01/26/18 at 09:00 Risperidone (Risperdal) 1 mg QHS PO Last administered on 03/01/18 19:57; A dmin Dose 1 MG; Start 01/25/18 at 21:00 Zonisamide (Zonegran) 300 mg QHS PO Last administered on 03/01/18 19:58; Admin Dose 300 MG; Start 01/25/18 at 21:00 Eye Lubricant (Artificial Tears Oph) 1 drop Q8 BOTH EYES Last administered on 03/02/18 06:03; Admin Dose 1 DROP; Start 01/25/18 at 22:00 Miscellaneous Information (Pending [facility] Dist[facility] Order For Wound Care) This patient woody... PRN PRN XX wound; Start 01/25/18 at 16:30 Vitamin A/Vitamin D (Vitamin A & D Oint) 1 applic BID TOP Last administered on 03/01/18 21:21; Admin Dose 1 APPLIC; Start 01/26/18 at 21:00 Docusate Sodium (Colace) 200 mg BID PO Last administered on 03/01/18 19:56; Admin Dose 200 MG; Start 01/27/18 at 21:00 Enoxaparin Sodium (Lovenox) 40 mg DAILY SC Last administered on 03/01/18 08:54; Admin Dose 40 MG; Start 01/28/18 at 09:00 Sodium Hypochlorite (Dakin'S (Dilute )) 1 applic DAILY IRR Last administe red on 02/27/18 08:56; Admin Dose 1 APPLIC; Start 01/27/18 at 18:30 Collagenase (Santyl) 1 applic DAILY TOP Last administered on 02/27/18 08:56; Admin Dose 1 APPLIC; Start 01/27/18 at 17:30 Hydrocortisone (Hydrocortisone 1% Cr) 1 applic BID TOP Last administered on 03/01/18 21:16; Admin Dose 1 APPLIC; Start 01/27/18 at 21:19 Collagenase (Santyl) 1 applic DAILY TOP Last administered on 02/27/18 08:56; Admin Dose 1 APPLIC; Start 02/04/18 at 09:00 Nitroglycerin (Nitroglycerin (Sl Tab) 0.4 Mg) 1 tab Q5M PRN SL ANGINA; Start 02/05/18 at 07:00 Morphine Sulfate (morphine) 6 mg Q4H PRN PO SEVERE PAIN LEVEL 7-10 Last administered on 03/01/18 06:23; Admin Dose 6 MG; Start 02/11/18 at 20:00 Diphenhydramine HCl (Benadryl) 25 mg Q6H PRN IV itching Last administered on 02/20/18 09:57; Admin Dose 25 MG; Start 02/19/18 at 14:00 Levofloxacin/ Dextrose 100 ml @ 100 mls/hr Q24H IVPB Last administered on 03/01/18 09:13; Admin Dose 100 MLS/HR; Start 02/20/18 at 10:00 LIVIA ADAME NP Mar 02, 2018 08:24
[2018-03-02] MEDS: FAMOTIDINE 20 MG TAB PO SCH ×2 (08:55→20:28)
[2018-03-02] MEDS: GABAPENTIN 100 MG CAP PO SCH ×2 (08:55→20:18)
[2018-03-02] MEDS: MAGNESIUM OXIDE 400 MG TAB PO SCH ×2 (08:55→20:18)
[2018-03-02] MEDS: BACLOFEN 10 MG TAB PO SCH ×3 (08:55→20:18)
[2018-03-02] MEDS: ENOXAPARIN 40 MG/0.4 ML SYG SC SCH (08:55)
[2018-03-02] MEDS: PYRIDOXINE 50 MG TAB PO SCH (08:55)
[2018-03-02] MEDS: DULOXETINE 30 MG CAP DR PO SCH (08:55)
[2018-03-02] MEDS: FOLIC ACID 1 MG TAB PO SCH (08:55)
[2018-03-02] MEDS: COLLAGENASE 5 GM (UD JAR) TOP SCH ×2 (08:55→08:57)
[2018-03-02] MEDS: ALLOPURINOL 100 MG TAB PO SCH (08:56)
[2018-03-02] MEDS: BALSAM PERU/CASTOR OIL 60 GM TUBE TOP SCH (08:56)
[2018-03-02] MEDS: VITAMIN A & D 5 GM OINT PACKET TOP SCH ×2 (08:56→22:01)
[2018-03-02] MEDS: DOCUSATE SODIUM 100 MG CAP PO SCH ×2 (08:56→20:17)
[2018-03-02] MEDS: HYDROCORTISONE 1% 28 GM CR TOP SCH ×2 (08:57→21:00)
[2018-03-02] MEDS: SODIUM HYPOCHLORITE (1/40) 1 APPLIC BTL IRR SCH (08:57)
[2018-03-02] MEDS: NYSTATIN 15 GM POWDER BTL TOP SCH ×2 (08:57→22:02)
[2018-03-02] MEDS: LEVOFLOXACIN 500MG/D5W (PMX) 100 ML IVPB SCH (09:00)
[2018-03-02 14:00] VITALS: BP 138/73; PULSE 76; RESP 18
--- NOTE | 2018-03-02 15:50 | NUR ---
[facility] Patient: [place]o Wynne : 1960 Age/Sex: 57/M Unit#: [id number] Room/Bed: 2265/A User: Trey Cheek PTA Date: 03/02/18 15:36 Type: PT Technical Record Therapy day number 11 Subjective Current complaint of pain Pain Scale NUMERIC Pain Intensity 6 (0-10) Patient Stated Goal for Pain Relief 0 (0-10) Pain Level Comment generalized Exercise Assessment Label Bilat Lower Extremity Exercise Type Manual Stretching Additional Exercise Comments all planes Exercise Assessment Label Bilat Upper Extremity Exercise Type Active ROM Exercise Start Time 14:30 Exercise End Time 14:45 Total Exercise Time 15 min (8-127) Transfer Training Start Time 14:45 Supine to Sit Maximum Assist Bed Mobility Sit to Supine Maximum Assist Sitting Tolerance 18 min Transfer Training End Time 15:10 Total Transfer Training Time 25 min (8-127) Static Sitting Balance Fair plus Dynamic Sitting Balance Fair Safety Judgement Fair Activity Tolerance Fair Equipment Present Benavidez Catheter Post Treatment Pain Intensity 6 0-10 Variance Documentation pls see notes Total Treament Time 40 min (8-127) Total Minutes 40 Total Units 3 PT Technical Record Comment PT notes: same treatment plan given; sitted approx 18 min at edge of bed; worked on sitting balance and trunk stabilization exercises while at edge of bed; safely assisted back to bed after treatment; patient needs encouragement to increase participation with therapy. will continue current plan of care.
--- NOTE | 2018-03-02 17:16 | PN ---
Date/Time of Note Date/Time of Note DATE: 03/02/18 TIME: 17:15 Assessment/Plan Lines/Catheters IV Catheter Type (from [facility]): Saline Lock Benavidez in Place (from [facility]): Yes Assessment/Plan Chief Complaint/Hosp Course 1. Stage 3 necrotic wound: Noted with stool contamination s/p repeat excisional debridement 02/20; now with noted blisters -cont local care> Santyl > consider follow ups at wound care clinic near where he will be discharged -frequent turning and off-loading -low air loss mattress -vitamin c -short term zinc -optimize nutrition -keep area clean as possible and free from stool -skin protection against devices 2. Bilateral lower extremity ulcers: -As above -Per podiatry 3. Hypochromic microcytic anemia: -Monitor and transfuse as needed 4. Depression: -Psychiatric optimization 5. Paraplegia -Supportive 6. Hypertension -nutrition and medication optimization Thank you Subjective 24 Hr Interval Summary Feels well. New noted blister on thigh. No fevers, chills, sob, congested cough, cp, palpitations, woody, dizziness, n/v/d/dysuria, wound odor or dressing. Exam/Review of Systems Vital Signs Vitals Vital Signs Date Temp Pulse Resp B/P (MAP) Pulse Ox O2 O2 Flow FiO2 Time Delivery Rate 03/02/18 98.6 76 18 138/73 96 14:00 (94) 03/01/18 Room Air 08:36 Intake and Output 03/01/18 03/01/18 03/02/18 1414:59 22:59 06:59 IntakeIntake Total 100 ml 920 ml 240 ml OutputOutput Total 1000 ml BalanceBalance 100 ml -80 ml 240 ml Exam Free Text/Dictation Constitutional: alert, oriented Psych: nl mood/affect, anxiety (Minimal) Head: normocephalic, atraumatic Eyes: nl conjunctiva, EOMI, nl sclera ENMT: nl external ears & nose, nl lips & teeth, mucosa pink and moist Neck: supple, non-tender Respiratory: normal air movement; No congested cough Cardiovascular: regular rate and rhythm; No edema Gastrointestinal: soft, non-tender; No distended Musculoskeletal: nl extremities to inspection; No nl gait and stance Extremities: normal pulses; No edema Neurological: nl mental status, nl speech Skin: nl turgor, Sacral wound packed, no periwound erythema, no drainage, min slough; bilateral lower extremity ulcers: Wrapped Results Result Diagram: 02/27/18 0844 02/27/18 0844 DOC HOFFMAN MD Mar 02, 2018 17:16
--- NOTE | 2018-03-02 18:26 | NUR ---
Routine wound tx done kept clean dry and also repositioned every 2 hours and assisted all needs. No sob , no acute distress, mathur catheter intact no hematuria and VS within range will continue POC
[2018-03-02 20:00] VITALS: BP 100/59; PULSE 94; RESP 18
[2018-03-02] MEDS: ZONISAMIDE 100 MG CAP PO SCH (20:17)
[2018-03-02] MEDS: RISPERIDONE 1 MG TAB PO SCH (20:25)
[2018-03-03] MEDS: HYDROCODONE/APAP (5/325) TAB PO PRN ×3 (02:32→18:27)
[2018-03-03] MEDS: ARTIFICIAL TEARS 15 ML OPH BOTH EYES SCH ×3 (05:46→21:36)
--- NOTE | 2018-03-03 06:59 | NUR ---
1915 Pt received aaox4 oriented to mortuary beautician nurse and denies needs at this time. 1999 Scheduled medications administered w/o difficulty. Medicated for left foot wound pain as requested. 2200 Dressing changes to bilateral heels completed. 0000 Pt continue to be turned q2 hours. Denies needs at this time. 0630 No significant changes throughout the shift, nursing will continue to monitor and endorse to morning shift to ensure continuity of care. Nursing continue to wait for placement for pt.
[2018-03-03 08:00] VITALS: BP 120/69; PULSE 88; RESP 18
[2018-03-03] MEDS: COLLAGENASE 5 GM (UD JAR) TOP SCH ×2 (09:00→09:57)
[2018-03-03] MEDS: SODIUM HYPOCHLORITE (1/40) 1 APPLIC BTL IRR SCH (09:54)
[2018-03-03] MEDS: DOCUSATE SODIUM 100 MG CAP PO SCH ×2 (09:54→20:26)
[2018-03-03] MEDS: BACLOFEN 10 MG TAB PO SCH ×3 (09:55→20:27)
[2018-03-03] MEDS: FOLIC ACID 1 MG TAB PO SCH (09:55)
[2018-03-03] MEDS: PYRIDOXINE 50 MG TAB PO SCH (09:55)
[2018-03-03] MEDS: ALLOPURINOL 100 MG TAB PO SCH (09:55)
[2018-03-03] MEDS: GABAPENTIN 100 MG CAP PO SCH ×2 (09:55→20:27)
[2018-03-03] MEDS: DULOXETINE 30 MG CAP DR PO SCH (09:55)
[2018-03-03] MEDS: FAMOTIDINE 20 MG TAB PO SCH ×2 (09:55→20:27)
[2018-03-03] MEDS: NYSTATIN 15 GM POWDER BTL TOP SCH ×2 (09:56→20:29)
[2018-03-03] MEDS: VITAMIN A & D 5 GM OINT PACKET TOP SCH ×2 (09:57→20:30)
[2018-03-03] MEDS: LEVOFLOXACIN 500MG/D5W (PMX) 100 ML IVPB SCH (09:57)
[2018-03-03] MEDS: HYDROCORTISONE 1% 28 GM CR TOP SCH ×2 (09:57→20:29)
[2018-03-03] MEDS: BALSAM PERU/CASTOR OIL 60 GM TUBE TOP SCH (09:58)
[2018-03-03] MEDS: ENOXAPARIN 40 MG/0.4 ML SYG SC SCH (09:59)
[2018-03-03] MEDS: MAGNESIUM OXIDE 400 MG TAB PO SCH ×2 (10:03→20:27)
--- NOTE | 2018-03-03 12:05 | PN ---
Date/Time of Note Date/Time of Note DATE: 03/03/18 TIME: 12:04 Assessment/Plan VTE Prophylaxis Risk score (from Nsg)>0 risk: 6 SCD applied (from Nsg): Yes Pharmacological prophylaxis: LMWH Lines/Catheters IV Catheter Type (from Nrsg): Saline Lock Urinary Cath still in place: Yes Reason Cath still needed: skin wounds contaminated by urine Assessment/Plan Hospital Course SUBJECTIVE: No acute overnight episodes. OBJECTIVE: Vital signs-see below PHYSICAL EXAM: Constitutional: Bedbound male, not in acute distress. Psych: nl mood/affect, no complaints Head: atraumatic, normocephalic Eyes: nl conjunctiva, nl sclera ENMT: mucosa pink and moist, nl external ears & nose Neck: non-tender, supple Respiratory: clear to auscultation, normal air movement Cardiovascular: nl pulses, regular rate and rhythm Gastrointestinal: non-tender, soft, bowel sounds active in all 4 quadrants. Musculoskeletal/extremities: Paraplegic. Normal pulses,no cyanosis, no edema. Neurological: Alert oriented 3,nl speech, nl strength Skin: Bilateral heel with ulcers, covered with dressing. No oozing noted on dressing. Nl turgor ASSESSMENT/PLAN: Very unfortunate 57-year-old male with a history of paraplegia secondary to spinal cord syndrome 6 months ago, who also resides in a usp, presented to the emergency room with worsening bilateral heel ulcers with foul-smelling drainage 1. Bilateral heel Decub ulcers -status post excisional debridement of bilateral heel decubitus. No evidence of osteomyelitis. -pro-calcitonin level still mildly elevated, recommend continuation of IV antibiotic per podiatry recommendation. Repeat CRP/ESR/Procalcitonin trending down. -Continue wound care per podiatry recommendation with Dakin's irrigation/Xeroform/Kerlix dressing. 2. Paraplegia secondary to spinal disorder and back surgery 6 months ago -Exact nature of disorder and surgery unclear -Continue baclofen 3. Depression -Continue home Cymbalta 4. Hypertension -Continue Coreg 5. Debility secondary to #2. -Patient resides in a usp. 6. Chronic anemia with mild iron deficiency. -Stable H&H after 1 unit transfusion. -Continue oral iron replacement. 7. Unstageable pressure ulcers, sacral coccyx -S/o bedside debridement 02/13/18 -Continue wound care Prophylaxis:Lovenox/Pepcid Diet: Regular CODE STATUS: Full code Disposition: Continue current medical management. cont abx per podiatry recs. Will repeat labs in a week to determine abx discontinuation. Pending usp placement. Patient was seen in collaboration with Cont Hosp Indication/DC Plan: placement Result Diagram: 02/27/18 0844 02/27/18 0844 Exam/Review of Systems Vital Signs Vitals Vital Signs Date Temp Pulse Resp B/P (MAP) Pulse Ox O2 O2 Flow FiO2 Time Delivery Rate 03/03/18 98.7 88 18 120/69 97 08:00 (86) 03/01/18 Room Air 08:36 Intake and Output 03/02/18 03/02/18 03/03/18 1515:00 23:00 07:00 IntakeIntake Total 360 ml 350 ml OutputOutput Total 900 ml BalanceBalance 360 ml -550 ml Medications Medications Current Medications IV Flush (NS 3 ml) 3 ml PER PROTOCOL IV ; Start 01/25/18 at 15:30 Ondansetron HCl (Zofran Inj) 4 mg Q6H PRN IV NAUSEA AND/OR VOMITING; Start 01/25/18 at 15:30 Acetaminophen (Tylenol Tab) 650 mg Q6H PRN PO PAIN LEVEL 1-3 OR FEVER; Start 01/25/18 at 15:30 Acetaminophen/ Hydrocodone Bitart ([place] (5/325)) 1 tab Q6H PRN PO MODERATE PAIN LEVEL 4-6 Last administered on 03/03/18 10:10; Admin Dose 1 TAB; Start 01/25/18 at 15:30 Allopurinol (Zyloprim) 100 mg DAILY PO Last administered on 03/03/18 09:55; Admin Dose 100 MG; Start 01/26/18 at 09:00 Baclofen (Lioresal) 10 mg TID PO Last administered on 03/03/18 09:55; Admin Dos e 10 MG; Start 01/25/18 at 21:00 Carvedilol (Coreg) 12.5 mg BID PO Last administered on 03/03/18 09:55; Admin Dose 12.5 MG; Start 01/25/18 at 21:00 Duloxetine HCl (Cymbalta) 30 mg DAILY PO Last administered on 03/03/18 09:55; Admin Dose 30 MG; Start 01/26/18 at 09:00 Famotidine (Pepcid) 20 mg BID PO Last administered on 03/03/18 09:55; Admin Dose 20 MG; Start 01/25/18 at 21:00 Folic Acid (Folic Acid) 1 mg DAILY PO Last administered on 03/03/18 09:55; Admin Dose 1 MG; Start 01/26/18 at 09:00 Gabapentin (Neurontin) 100 mg BID PO Last administered on 03/03/18 09:55; Admin Dose 100 MG; Start 01/25/18 at 21:00 Magnesium Oxide (Mag-Ox 400) 400 mg BID PO Last administered on 03/03/18 10:03; Admin Dose 400 MG; Start 01/25/18 at 21:00 Nystatin 1 applic BID TOP Last administered on 03/03/18 09:56; Admin Dose 1 APPLIC; Start 01/25/18 at 21:00 Pyridoxine HCl (Vitamin B6) 50 mg DAILY PO Last administered on 03/03/18 09:55; Admin Dose 50 MG; Start 01/26/18 at 09:00 Risperidone (Risperdal) 1 mg QHS PO Last administered on 03/02/18 20:25; Admin Dose 1 MG; Start 01/25/18 at 21:00 Zonisamide (Zonegran) 300 mg QHS PO Last administered on 03/02/18 20:17; Admin Dose 300 MG; Start 01/25/18 at 21:00 Eye Lubricant (Artificial Tears Oph) 1 drop Q8 BOTH EYES Last administered on 03/03/18 05:46; Admin Dose 1 DROP; Start 01/25/18 at 22:00 Miscellaneous Information (Pending [facility] Order For Wound Care) This patient woody... PRN PRN XX wound; Start 01/25/18 at 16:30 Vitamin A/Vitamin D (Vitamin A & D Oint) 1 applic BID TOP Last administered on 03/03/18 09:57; Admin Dose 1 APPLIC; Start 01/26/18 at 21:00 Docusate Sodium (Colace) 200 mg BID PO Last administered on 03/03/18 09:54; Admin Dose 200 MG; Start 01/27/18 at 21:00 Enoxaparin Sodium (Lovenox) 40 mg DAILY SC Last administered on 03/03/18 09:59; Admin Dose 40 MG; Start 01/28/18 at 09:00 Sodium Hypochlorite (Dakin'S (Dilute )) 1 applic DAILY IRR Last administered on 03/03/18 09:54; Admin Dose 1 APPLIC; Start 01/27/18 at 18:30 Collagenase (Santyl) 1 applic DAILY TOP Last administered on 03/03/18 09:57; A dmin Dose 1 APPLIC; Start 01/27/18 at 17:30 Hydrocortisone (Hydrocortisone 1% Cr) 1 applic BID TOP Last administered on 03/03/18 09:57; Admin Dose 1 APPLIC; Start 01/27/18 at 21:19 Collagenase (Santyl) 1 applic DAILY TOP Last administered on 02/27/18 08:56; Admin Dose 1 APPLIC; Start 02/04/18 at 09:00 Nitroglycerin (Nitroglycerin (Sl Tab) 0.4 Mg) 1 tab Q5M PRN SL ANGINA; Start 02/05/18 at 07:00 Morphine Sulfate (morphine) 6 mg Q4H PRN PO SEVERE PAIN LEVEL 7-10 Last administered on 03/01/18 06:23; Admin Dose 6 MG; Start 02/11/18 at 20:00 Diphenhydramine HCl (Benadryl) 25 mg Q6H PRN IV itching Last administered on 02/20/18 09:57; Admin Dose 25 MG; Start 02/19/18 at 14:00 Levofloxacin/ Dextrose 100 ml @ 100 mls/hr Q24H IVPB Last administered on 03/03/18 09:57; Admin Dose 100 MLS/HR; Start 02/20/18 at 10:00 LIVIA ADAME NP Mar 03, 2018 12:05
[2018-03-03 14:00] VITALS: BP 126/78; PULSE 82; RESP 20
--- NOTE | 2018-03-03 19:00 | NUR ---
Patient on bed rest, alert and oriented. Vital signs stable. Patient is paraplegic. Turned every 2 hours. Wound care provided. Patient stable. Continue with IV antibiotics, wound care and waiting for placement.
[2018-03-03 19:56] VITALS: BP 114/68; PULSE 83; RESP 18
[2018-03-03] MEDS: RISPERIDONE 1 MG TAB PO SCH (20:27)
[2018-03-03] MEDS: ZONISAMIDE 100 MG CAP PO SCH (20:27)
--- NOTE | 2018-03-03 20:30 | NUR ---
S/p Debridement of right heel wound with Dr. Courtney . Patient tolerated procedure well.Denies any pain /discomfort at this time. Will continue to monitor.
[2018-03-04 01:42] VITALS: BP 104/63; PULSE 94; RESP 18
[2018-03-04] MEDS: HYDROCODONE/APAP (5/325) TAB PO PRN ×3 (01:54→19:53)
[2018-03-04] MEDS: ARTIFICIAL TEARS 15 ML OPH BOTH EYES SCH ×3 (06:13→21:06)
[2018-03-04 08:13] VITALS: BP 134/74; PULSE 66; RESP 16
--- NOTE | 2018-03-04 09:15 | OPPN ---
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
[2018-03-04] MEDS: LEVOFLOXACIN 500MG/D5W (PMX) 100 ML IVPB SCH (10:07)
[2018-03-04] MEDS: ENOXAPARIN 40 MG/0.4 ML SYG SC SCH (10:07)
[2018-03-04] MEDS: VITAMIN A & D 5 GM OINT PACKET TOP SCH ×2 (10:07→21:06)
[2018-03-04] MEDS: COLLAGENASE 5 GM (UD JAR) TOP SCH ×2 (10:07→10:08)
[2018-03-04] MEDS: DOCUSATE SODIUM 100 MG CAP PO SCH ×2 (10:08→21:05)
[2018-03-04] MEDS: MAGNESIUM OXIDE 400 MG TAB PO SCH ×2 (10:09→21:05)
[2018-03-04] MEDS: BACLOFEN 10 MG TAB PO SCH ×3 (10:09→21:05)
[2018-03-04] MEDS: PYRIDOXINE 50 MG TAB PO SCH (10:09)
[2018-03-04] MEDS: FOLIC ACID 1 MG TAB PO SCH (10:09)
[2018-03-04] MEDS: DULOXETINE 30 MG CAP DR PO SCH (10:09)
[2018-03-04] MEDS: ALLOPURINOL 100 MG TAB PO SCH (10:09)
[2018-03-04] MEDS: FAMOTIDINE 20 MG TAB PO SCH ×2 (10:10→21:05)
[2018-03-04] MEDS: GABAPENTIN 100 MG CAP PO SCH ×2 (10:10→21:05)
--- NOTE | 2018-03-04 10:13 | PN ---
Date/Time of Note Date/Time of Note DATE: 03/04/18 TIME: 10:13 Assessment/Plan VTE Prophylaxis Risk score (from Nsg)>0 risk: 6 SCD applied (from Ns): Yes Pharmacological prophylaxis: heparin Lines/Catheters IV Catheter Type (from Nrs): Saline Lock Assessment/Plan Hospital Course 57 y/o paraplegic M patient presents to the floor with bilateral pressure heel wounds. Patient states they have been present for over two weeks. Patient states he was at another facility and his ex- also helps with the dressing changes and noticed worsening signs of the wound with foul smell. Patient denies f/c/n/v no chest pain or shortness of breath. Assessment/Plan 1) B/l decubitus heel ulcers right stage 2, left heel resolved 2) Right foot and ankle partial thickness wounds 3) Left decubitus ankle ulcer stage 2 4) Paraplegia b/l LE 5) Peripheral neuropathy 6) HTN 7) Depression Plan: Patient is s/p bedside right heel excisional debridement and applied a wound VAC to the right heel. Right foot wound cultures showing e. cloacae and enterococcus species. Continue with daily dressing changes to the other portions of the foot. Wound care orders are in place. Emphasized to nurse strict offloading of heels with pillows and offloading soft boots. X-rays reviewed and did not appreciate sign of osteomyelitis. Continue with IV abx as per recommendations. Non-invasive studies ordered: No focal hemodynamically significant stenosis in either lower extremity. Patient may follow up in outpatient [facility] wound clinic Medical decisions, treatment and plan coordinated with Dr. Courtney. Subjective 24 Hr Interval Summary Free Text/Dictation No acute events overnight. Exam/Review of Systems Vital Signs Vitals Vital Signs Date Temp Pulse Resp B/P (MAP) Pulse Ox O2 O2 Flow FiO2 Time Delivery Rate 03/04/18 97.5 66 16 134/74 100 08:13 (94) 03/01/18 Room Air 08:36 Intake and Output 03/03/18 03/03/18 03/04/18 1515:00 23:00 07:00 IntakeIntake Total 690 ml 1040 ml 150 ml OutputOutput Total 2000 ml 950 ml BalanceBalance -1310 ml 90 ml 150 ml Exam Palpable pedal pulses 2+ pitting edema Right foot heel full thickness ulcer with granular wound bed and adipose tissue appreciated, bone exposed, no purulence noted, wound margins measures 4 x 4 x 0.9cm. No proximal streaking. Right anterior ankle serous bullae and deroofed revealed partial thickness wound 2.5 x 2.5 x 0.1cm granular, no erythema, purulence, probing to bone or proximal streaking Right lateral foot with serosanguinous bullae deroofed revealed partial thickness wound 0.6 x 0.3 x 0.1cm granular, no erythema, purulence, probing to bone or proximal streaking Left heel ulcer with signs of epithelialization and some areas of desquamation Left lateral malleolus with eschar formation and upon deroofing revealed ulceration of mixed granular necrotic wound bed measuring 0.5 x 0.5 x 0.2cm, no purulence noted or no proximal streaking. Absent muscle strength to the lower extremity Absent protective sensations to the bilateral lower extremities. Medications Medications Current Medications IV Flush (NS 3 ml) 3 ml PER PROTOCOL IV ; Start 01/25/18 at 15:30 Ondansetron HCl (Zofran Inj) 4 mg Q6H PRN IV NAUSEA AND/OR VOMITING; Start 01/25/18 at 15:30 Acetaminophen (Tylenol Tab) 650 mg Q6H PRN PO PAIN LEVEL 1-3 OR FEVER; Start 01/25/18 at 15:30 Acetaminophen/ Hydrocodone Bitart ([place] (5/325)) 1 tab Q6H PRN PO MODERATE PAIN LEVEL 4-6 Last administered on 03/04/18 01:54; Admin Dose 1 TAB; Start 01/25/18 at 15:30 Allopurinol (Zyloprim) 100 mg DAILY PO Last administered on 03/03/18 09:55; Admin Dose 100 MG; Start 01/26/18 at 09:00 Baclofen (Lioresal) 10 mg TID PO Last administered on 03/03/18 20:27; Admin Dose 10 MG; Start 01/25/18 at 21:00 Carvedilol (Coreg) 12.5 mg BID PO Last administered on 03/03/18 20:27; Admin Dose 12.5 MG; Start 01/25/18 at 21:00 Duloxetine HCl (Cymbalta) 30 mg DAILY PO Last administered on 03/03/18 09:55; Admin Dose 30 MG; Start 01/26/18 at 09:00 Famotidine (Pepcid) 20 mg BID PO Last administered on 03/03/18 20:27; Admin Dose 20 MG; Start 01/25/18 at 21:00 Folic Acid (Folic Acid) 1 mg DAILY PO Last administered on 03/03/18 09:55; Admin Dose 1 MG; Start 01/26/18 at 09:00 Gabapentin (Neurontin) 100 mg BID PO Last administered on 03/03/18 20:27; Admin Dose 100 MG; Start 01/25/18 at 21:00 Magnesium Oxide (Mag-Ox 400) 400 mg BID PO Last administered on 03/03/18 20:27; Admin Dose 400 MG; Start 01/25/18 at 21:00 Nystatin 1 applic BID TOP Last administered on 03/03/18 20:29; Admin Dose 1 APPLIC; Start 01/25/18 at 21:00 Pyridoxine HCl (Vitamin B6) 50 mg DAILY PO Last administered on 03/03/18 09:55; Admin Dose 50 MG; Start 01/26/18 at 09:00 Risperidone (Risperdal) 1 mg QHS PO Last administered on 03/03/18 20:27; Admin Dose 1 MG; Start 01/25/18 at 21:00 Zonisamide (Zonegran) 300 mg QHS PO Last administered on 03/03/18 20:27; Admin Dose 300 MG; Start 01/25/18 at 21:00 Eye Lubricant (Artificial Tears Oph) 1 drop Q8 BOTH EYES Last administered on 03/04/18 06:13; Admin Dose 1 DROP; Start 01/25/18 at 22:00 Miscellaneous Information (Pending Santyl Order For Wound Care) This patient woody... PRN PRN XX wound; Start 01/25/18 at 16:30 Vitamin A/Vitamin D (Vitamin A & D Oint) 1 applic BID TOP Last administered on 03/03/18 20:30; Admin Dose 1 APPLIC; Start 01/26/18 at 21:00 Docusate Sodium (Colace) 200 mg BID PO Last administered on 03/03/18 20:26; Admin Dose 200 MG; Start 01/27/18 at 21:00 Enoxaparin Sodium (Lovenox) 40 mg DAILY SC Last administered on 03/03/18 09:59; Admin Dose 40 MG; Start 01/28/18 at 09:00 Sodium Hypochlorite (Dakin'S (Dilute )) 1 applic DAILY IRR Last administered on 03/03/18 09:54; Admin Dose 1 APPLIC; Start 01/27/18 at 18:30 Collagenase (Santyl) 1 applic DAILY TOP Last administered on 03/03/18 09:57; Admin Dose 1 APPLIC; Start 01/27/18 at 17:30 Hydrocortisone (Hydrocortisone 1% Cr) 1 applic BID TOP Last administered on 03/03/18 20:29; Admin Dose 1 APPLIC; Start 01/27/18 at 21:19 Collagenase (Santyl) 1 applic DAILY TOP Last administered on 02/27/18 08:56; Admin Dose 1 APPLIC; Start 02/04/18 at 09:00 Nitroglycerin (Nitroglycerin (Sl Tab) 0.4 Mg) 1 tab Q5M PRN SL ANGINA; Start 02/05/18 at 07:00 Morphine Sulfate (morphine) 6 mg Q4H PRN PO SEVERE PAIN LEVEL 7-10 Last administered on 03/01/18 06:23; Admin Dose 6 MG; Start 02/11/18 at 20:00 Diphenhydramine HCl (Benadryl) 25 mg Q6H PRN IV itching Last administered on 02/20/18 09:57; Admin Dose 25 MG; Start 02/19/18 at 14:00 Levofloxacin/ Dextrose 100 ml @ 100 mls/hr Q24H IVPB Last administered on 03/03/18 09:57; Admin Dose 100 MLS/HR; Start 02/20/18 at 10:00 LUKE BONILLA DPM Mar 04, 2018 10:13
[2018-03-04] MEDS: BALSAM PERU/CASTOR OIL 60 GM TUBE TOP SCH (10:23)
[2018-03-04] MEDS: NYSTATIN 15 GM POWDER BTL TOP SCH ×2 (10:23→21:06)
[2018-03-04] MEDS: HYDROCORTISONE 1% 28 GM CR TOP SCH ×2 (10:23→21:06)
[2018-03-04] MEDS: SODIUM HYPOCHLORITE (1/40) 1 APPLIC BTL IRR SCH (10:24)
--- NOTE | 2018-03-04 11:01 | PN ---
Date/Time of Note Date/Time of Note DATE: 03/04/18 TIME: 10:56 Assessment/Plan Lines/Catheters IV [facility] Type (from [facility]): Saline Lock Assessment/Plan Chief Complaint/Hosp Course 1. Stage 3 necrotic wound: Noted with stool contamination s/p repeat excisional debridement 02/20; now with noted blisters -cont local care> Santyl > consider follow ups at wound care clinic near where he will be discharged -frequent turning and off-loading -low air loss mattress -vitamin c -short term zinc -optimize nutrition -keep area clean as possible and free from stool -skin protection against devices 2. Bilateral lower extremity ulcers: with wound vac -As above -Per podiatry 3. Hypochromic microcytic anemia: -Monitor and transfuse as needed 4. Depression: -Psychiatric optimization 5. Paraplegia -Supportive 6. Hypertension -nutrition and medication optimization Thank you. Patient seen and examined in collaboration with Dr. Brian Angulo. Subjective 24 Hr Interval Summary Feels well. S/p wound vac to feet. No fevers, chills, sob, congested cough, cp, palpitations, woody, dizziness, n/v/d/dysuria. Exam/Review of Systems Vital Signs Vitals Vital Signs Date Temp Pulse Resp B/P (MAP) Pulse Ox O2 O2 Flow FiO2 Time Delivery Rate 03/04/18 97.5 66 16 134/74 100 08:13 (94) 03/01/18 Room Air 08:36 Intake and Output 03/03/18 03/03/18 03/04/18 1515:00 23:00 07:00 IntakeIntake Total 690 ml 1040 ml 150 ml OutputOutput Total 2000 ml 950 ml BalanceBalance -1310 ml 90 ml 150 ml Exam Free Text/Dictation Constitutional: alert, oriented Psych: nl mood/affect, anxiety (Minimal) Head: normocephalic, atraumatic Eyes: nl conjunctiva, EOMI, nl sclera ENMT: nl external ears & nose, nl lips & teeth, mucosa pink and moist Neck: supple, non-tender Respiratory: normal air movement; No congested cough Cardiovascular: regular rate and rhythm; No edema Gastrointestinal: soft, non-tender; No distended Musculoskeletal: nl extremities to inspection; No nl gait and stance Extremities: normal pulses; No edema Neurological: nl mental status, nl speech Skin: nl turgor, Sacral wound packed, no periwound erythema, no drainage, min slough; wound vac to lower leg FERNANDO DÍAZ NP Mar 04, 2018 11:01
--- NOTE | 2018-03-04 11:53 | PN ---
Date/Time of Note Date/Time of Note DATE: 03/04/18 TIME: 11:51 Assessment/Plan VTE Prophylaxis Risk score (from Ns)>0 risk: 6 SCD applied (from Nsg): Yes Pharmacological prophylaxis: LMWH Lines/Catheters IV Catheter Type (from Nrs): Saline Lock Assessment/Plan Hospital Course SUBJECTIVE: No acute overnight episodes. Status post bedside debridement and wound VAC on right heel wound. OBJECTIVE: Vital signs-see below PHYSICAL EXAM: Constitutional: Bedbound male, not in acute distress. Psych: nl mood/affect, no complaints Head: atraumatic, normocephalic Eyes: nl conjunctiva, nl sclera ENMT: mucosa pink and moist, nl external ears & nose Neck: non-tender, supple Respiratory: clear to auscultation, normal air movement Cardiovascular: nl pulses, regular rate and rhythm Gastrointestinal: non-tender, soft, bowel sounds active in all 4 quadrants. Musculoskeletal/extremities: Paraplegic. Normal pulses,no cyanosis, no edema. Neurological: Alert oriented 3,nl speech, nl strength Skin: Bilateral heel with ulcers, covered with dressing. No oozing noted on dressing. Nl turgor ASSESSMENT/PLAN: Very unfortunate 57-year-old male with a history of paraplegia secondary to spinal cord syndrome 6 months ago, who also resides in a prison, presented to the emergency room with worsening bilateral heel ulcers with foul-smelling drainage.... 1. Bilateral heel Decub ulcers without evidence of OM.Wound cultures: Enterobacter cloacae -s/p excisional debridement of bilateral heel decubitus wounds 01/26=>Left heel resolved -ulcers progressed on Rt heel => Repeat Bedside debridement and application of wound vac 03/04/18 -ID consult for abx mgmt -Wound care per podiatry 2. Paraplegia secondary to spinal disorder and back surgery 6 months ago -Exact nature of disorder and surgery unclear -Continue baclofen 3. Depression -Continue home Cymbalta 4. Hypertension -Continue Coreg 5. Debility secondary to #2. -Patient resides in a prison. 6. Chronic anemia with mild iron deficiency. -Stable H&H after 1 unit transfusion. -Continue oral iron replacement. 7. Unstageable pressure ulcers, sacral coccyx -S/o bedside debridement 02/13/18 -Continue wound care Prophylaxis:Lovenox/Pepcid Diet: Regular CODE STATUS: Full code Disposition: Continue current medical management. cont abx per podiatry recs. Will repeat labs in a week to determine abx discontinuation. Pending prison placement. Patient was seen in collaboration with Exam/Review of Systems Vital Signs Vitals Vital Signs Date Temp Pulse Resp B/P (MAP) Pulse Ox O2 O2 Flow FiO2 Time Delivery Rate 03/04/18 97.5 66 16 134/74 100 08:13 (94) 03/01/18 Room Air 08:36 Intake and Output 03/03/18 03/03/18 03/04/18 1515:00 23:00 07:00 IntakeIntake Total 690 ml 1040 ml 150 ml OutputOutput Total 2000 ml 950 ml BalanceBalance -1310 ml 90 ml 150 ml Medications Medications Current Medications IV Flush (NS 3 ml) 3 ml PER PROTOCOL IV ; Start 01/25/18 at 15:30 Ondansetron HCl (Zofran Inj) 4 mg Q6H PRN IV NAUSEA AND/OR VOMITING; Start 01/25/18 at 15:30 Acetaminophen (Tylenol Tab) 650 mg Q6H PRN PO PAIN LEVEL 1-3 OR FEVER; Start 01/25/18 at 15:30 Acetaminophen/ Hydrocodone Bitart ([place] (5/325)) 1 tab Q6H PRN PO MODERATE PAIN LEVEL 4-6 Last administered on 03/04/18 10:08; Admin Dose 1 TAB; Start 01/25/18 at 15:30 Allopurinol (Zyloprim) 100 mg DAILY PO Last administered on 03/04/18 10:09; Admin Dose 100 MG; Start 01/26/18 at 09:00 Baclofen (Lioresal) 10 mg TID PO Last administered on 03/04/18 10:09; Admin Dose 10 MG; Start 01/25/18 at 21:00 Carvedilol (Coreg) 12.5 mg BID PO Last administered on 03/04/18 10:09; Admin Dose 12.5 MG; Start 01/25/18 at 21:00 Duloxetine HCl (Cymbalta) 30 mg DAILY PO Last administered on 03/04/18 10:09; Admin Dose 30 MG; Start 01/26/18 at 09:00 Famotidine (Pepcid) 20 mg BID PO Last administered on 03/04/18 10:10; Admin Dose 20 MG; Start 01/25/18 at 21:00 Folic Acid (Folic Acid) 1 mg DAILY PO Last administered on 03/04/18 10:09; Admin Dose 1 MG; Start 01/26/18 at 09:00 Gabapentin (Neurontin) 100 mg BID PO Last administered on 03/04/18 10:10; Admin Dose 100 MG; Start 01/25/18 at 21:00 Magnesium Oxide (Mag-Ox 400) 400 mg BID PO Last administered on 03/04/18 10:09; Admin Dose 400 MG; Start 01/25/18 at 21:00 Nystatin 1 applic BID TOP Last administered on 03/04/18 10:23; Admin Dose 1 APPLIC; Start 01/25/18 at 21:00 Pyridoxine HCl (Vitamin B6) 50 mg DAILY PO Last administered on 03/04/18 10:09; Admin Dose 50 MG; Start 01/26/18 at 09:00 Risperidone (Risperdal) 1 mg QHS PO Last administered on 03/03/18 20:27; Admin Dose 1 MG; Start 01/25/18 at 21:00 Zonisamide (Zonegran) 300 mg QHS PO Last administered on 03/03/18 20:27; Admin Dose 300 MG; Start 01/25/18 at 21:00 Eye Lubricant (Artificial Tears Oph) 1 drop Q8 BOTH EYES Last administered on 03/04/18 06:13; Admin Dose 1 DROP; Start 01/25/18 at 22:00 Miscellaneous Information (Pending [facility] Order For Wound Care) This patient woody... PRN PRN XX wound; Start 01/25/18 at 16:30 Vitamin A/Vitamin D (Vitamin A & D Oint) 1 applic BID TOP Last administered on 03/04/18 10:07; Admin Dose 1 APPLIC; Start 01/26/18 at 21:00 Docusate Sodium (Colace) 200 mg BID PO Last administered on 03/04/18 10:08; Admin Dose 200 MG; Start 01/27/18 at 21:00 Enoxaparin Sodium (Lovenox) 40 mg DAILY SC Last administered on 03/04/18 10:07; Admin Dose 40 MG; Start 01/28/18 at 09:00 Sodium Hypochlorite (Dakin'S (Dilute 140)) 1 applic DAILY IRR Last administered on 03/04/18 10:24; Admin Dose 1 APPLIC; Start 01/27/18 at 18:30 Collagenase (Santyl) 1 applic DAILY TOP Last administered on 03/04/18 10:07; Admin Dose 1 APPLIC; Start 01/27/18 at 17:30 Hydrocortisone (Hydrocortisone 1% Cr) 1 applic BID TOP Last administered on 03/04/18 10:23; Admin Dose 1 APPLIC; Start 01/27/18 at 21:19 Collagenase (Santyl) 1 applic DAILY TOP Last administered on 03/04/18 10:08; Admin Dose 1 APPLIC; Start 02/04/18 at 09:00 Nitroglycerin (Nitroglycerin (Sl Tab) 0.4 Mg) 1 tab Q5M PRN SL ANGINA; Start 02/05/18 at 07:00 Morphine Sulfate (morphine) 6 mg Q4H PRN PO SEVERE PAIN LEVEL 7-10 Last administered on 03/01/18 06:23; Admin Dose 6 MG; Start 02/11/18 at 20:00 Diphenhydramine HCl (Benadryl) 25 mg Q6H PRN IV itching Last administered on 02/20/18at 09:57; Admin Dose 25 MG; Start 02/19/18 at 14:00 Levofloxacin/ Dextrose 100 ml @ 100 mls/hr Q24H IVPB Last administered on 03/04/18 10:07; Admin Dose 100 MLS/HR; Start 02/20/18 at 10:00 LIVIA ADAME NP Mar 04, 2018 11:53
[2018-03-04 15:00] VITALS: BP 97/59; PULSE 81; RESP 16
[2018-03-04] MEDS ORDERED: VANCOMYCIN IV PER PHARMACY XX SCH (16:30)
--- NOTE | 2018-03-04 17:18 | NUR ---
VANCOMYCIN PER RX 57 yo MALE Allergy: NKA 510 74.1kg CC: bilateral heel decub ulcers -s/p excisional debridement of bilateral heel decubitus wounds 01/26 => left heel resolved -ulcers progressed on rt heel => repeat bedside debridement and application of wound vac 03/04/18 Other antibiotics: Meropenem Labs: WBC 4.3 (02/27/18) BUN and creatinine 21/0.8 (02/27/18) A/P: Vancomycin 1500MG X 1 THEN 1000MG IVPB Q12H
--- NOTE | 2018-03-04 17:45 | CONS ---
DATE OF ADMISSION: 01/26/2018 DATE OF CONSULTATION: 03/04/2018 TYPE OF CONSULTATION: Infectious disease. REASON FOR CONSULTATION: Antibiotic management. HISTORY OF PRESENT ILLNESS: Papo Wynne is a 57-year-old male who came in with bilateral p ressure sores on his feet and is being seen for antibiotic management. Past problems include: 1. Paraplegia secondary to spinal cord syndrome. 2. Status post back surgery. 3. Hypertension. 4. Diabetes mellitus. The patient is currently on medication for TB, isoniazid and rifampin. He also apparently has gout a nd is on allopurinol. The patient has tactile fevers with shaking chills. He had decreased appetite . No shortness of breath. He resides at [facility] and was transferred to the emergency room by ambulance. His ex- noted foul smelling drainage from an ulcer on his right foot. On admission, his white count was 4.8, H and H of 8.6 and 27.3, platelet count 403,000. BUN and creatinine is 9/0.72, glucose of 109. He was noted to have bilateral ulcers present on the calca neus of the right foot, eschar formation with no subcutaneous emphysema of the right calcaneus, purul ent drainage with no fluctuance or induration over the left calcaneus that extended to the medial asp ect of the foot. He was noted to have muscle atrophy of his bilateral lower extremities and was admi tted to the hospital and placed on vancomycin and Zosyn. On admission, he had no evidence of sepsis and lactic acid was normal. He received vancomycin and clindamycin in the emergency room. X-rays of the foot showed no secondary changes to suggest osteomyelitis. He was admitted with cellulitis. HOSPITAL COURSE: He was seen in consultation by podiatry, Dr. Adan, who noted bilateral decubit us heel ulcers, right unstageable, left stage I, left decubitus ulcer of the ankle stage II, parapleg ia, peripheral neuropathy, hypertension, depression, latent TB. On 02/25/2018, excisional debridemen t was done by Dr. Adan. He irrigated the wound with copious drainage and then after putting on Dakin solution, he dressed with Xeroform and Kerlix. He was seen by Dr. Courtney who noted bilateral foot ulcerations. On 02/03/2018, he was noted to be improved on the Dakin's solution, Xeroform and d ry dressings, bilateral heel decubiti. Juliette Gilbert noted that he had a history of paraplegia secondar y to spinal cord syndrome for 6 months, resides in a retirement. He is continued on his current th erapy and was actually switched over from vancomycin and Zosyn to Levaquin. White count on 8 was 3.8. He was seen by Dr. David on 02/07/2018. He felt that he was doing well. The patient was seen for stage II decubitus ulcer with slough and necrotic tissue. On 02/13/2018, he had excisional debridement of sacral skin, subcutaneous, 5.5 x 4.8 by nurse practitioner, Martha Garcia. T his was done at the bedside with necrotic tissue and debris in the sacral skin and subcutaneous tissu e were debrided to healthy edges, irrigated with Betadine and packed with Betadine moistened gauze. The patient was seen by Dr. Angulo on 02/16/2018, stage III sacral decubitus ulcer status post excis ional debridement and local care. On 02/19/2018, the patient was again seen by nurse practitioner, Priti machuca. She noted sacral minimal slough No periwound erythema, no drainage. Bilateral lower e xtremity ulcers are wrapped. On 02/23/2018, the patient was seen by Dr. Adan. Right foot wound culture showed Enterobacter cloacae and Enterococcus. Daily wound dressing changes with Dakin solut ion and with Santyl, Xeroform. X-rays reviewed did not reveal osteomyelitis and he recommended marifer nuing IV antibiotics. On 03/02/2018, the patient was seen by Dr. Angulo. Sacral wound was packed. White count from 02/27/2018 was 4.3. Today, the patient had right foot excisional debridement of the heel ulceration, necrotic skin and subcutaneous fascia and muscle, 4.4 cm. The patient was seen by nurse practitioner, Jose. Stage III necrotic wound, decubitus ulcer, now with noted blisters . Continue local care center. Consider followup at wound clinic where he will be discharged. The p atient was seen by Juliette Gilbert today, status post bedside debridement and wound VAC on the right heel wound. ID consult for antibiotic management. Wound care per podiatry. PAST MEDICAL HISTORY: As outlined. FAMILY HISTORY: Noncontributory. SOCIAL HISTORY: Does not smoke, drink or abuse drugs. ALLERGIES: NONE TO PENICILLIN, SULFA OR FOOD. HE IS ALLERGIC TO CHICKEN DERIVED AND TO SHRIMP. MEDICATIONS: Per chart. REVIEW OF SYSTEMS: Noncontributory. PHYSICAL EXAMINATION: GENERAL: The patient is well-developed, well-nourished male who is alert, responsive, in no acute di stress. VITAL SIGNS: Stable. HEENT: Within normal limits. NECK: Supple. LYMPH NODES: None palpable. CHEST: Decreased breath sounds at the bases. HEART: Without murmur or gallop. ABDOMEN: Soft, nontender, nondistended without organosplenomegaly or masses. EXTREMITIES: He has muscle atrophy to his bilateral extremities. RECTAL AND GENITAL: Deferred. NEUROLOGICAL: He is paraplegic. SKIN: He has decubitus ulcer on his sacrum and he has bilateral decubiti. He has a wound VAC on his right heel. IMPRESSION AND PLAN: The patient had Enterobacter cloacae and Enterococcus growing from his wound fr om the heel. I do not have any cultures from the decubitus. He is currently on Levaquin alone. I a m going to switch him to vancomycin and to meropenem. We will see if we can get cultures of the decu bitus. We will also going to get some blood cultures. I will dictate my findings to the hospitalist and to the aforementioned physicians. Dictated By: TRAVIS CLEMONS MD, JD/JARED Conf#: [id number] DID#: [id number] CC: ALEKSANDR GALAVIZ MD;*EndCC*
[2018-03-04] MEDS ORDERED: VANCOMYCIN 1.5 GM in SOD CHLORIDE 0.9% 250 ML IVPB ONE (18:00)
--- NOTE | 2018-03-04 18:42 | NUR ---
RN NOTES No significant event. seen by Dr Adan this am, wound vac placed on right heel, needs to be changed MWF as ordered. Patient was also seen by SUKUMAR Thomas with no new orders noted. Wound care done on sacrococcyx area. Patient was seen by Dr Wynne with new antibiotics ordered.
[2018-03-04 20:33] VITALS: BP 111/64; PULSE 82; RESP 18
[2018-03-04] MEDS: RISPERIDONE 1 MG TAB PO SCH (21:05)
[2018-03-04] MEDS: ZONISAMIDE 100 MG CAP PO SCH (21:06)
[2018-03-04] MEDS: MEROPENEM 1 GM/50ML(PMX) 50 ML IVPB SCH (22:16)
--- NOTE | 2018-03-05 01:43 | NUR ---
Elevated pt's heels with 2 pillows to off load his heels and pt was upset. Pt states that his elevated heels are causing him pain at his shoulders; pain medication was offered. Pt still refuses to have 2 pillows to elevate his heels despite education and pain medication being offered. Charge nurse was made aware and spoke to pt; pt still refuses to have his heels elevated and off loaded with 2 pillows.
[2018-03-05] MEDS: HYDROCODONE/APAP (5/325) TAB PO PRN ×3 (01:54→22:48)
[2018-03-05 02:17] VITALS: BP 118/65; PULSE 76; RESP 18
[2018-03-05] MEDS ORDERED: VANCOMYCIN 1 GM 250 ML IVPB SCH (06:00)
[2018-03-05] MEDS: ARTIFICIAL TEARS 15 ML OPH BOTH EYES SCH ×3 (06:02→22:43)
--- NOTE | 2018-03-05 06:36 | NUR ---
VS are stable and pt is afebrile. No acute changes or s/s of respiratory distress during shift. Pt c/o pain and medicated with PRN [place] which was effective. Repositioned pt Q2h. Dressing changed as ordered and when soiled; Wound vac is patent. Hourly rounding provided. Fall precautions observed with call light within reach. Vanco is currently infusing; will endorse oncoming nurse continuity of care.
[2018-03-05 08:12] VITALS: BP 109/64; PULSE 72; RESP 18
[2018-03-05] MEDS: ENOXAPARIN 40 MG/0.4 ML SYG SC SCH (08:44)
[2018-03-05] MEDS: MEROPENEM 1 GM/50ML(PMX) 50 ML IVPB SCH ×2 (08:44→20:45)
[2018-03-05] MEDS: GABAPENTIN 100 MG CAP PO SCH ×2 (08:45→20:46)
[2018-03-05] MEDS: PYRIDOXINE 50 MG TAB PO SCH (08:45)
[2018-03-05] MEDS: ALLOPURINOL 100 MG TAB PO SCH (08:45)
[2018-03-05] MEDS: DULOXETINE 30 MG CAP DR PO SCH (08:45)
[2018-03-05] MEDS: FOLIC ACID 1 MG TAB PO SCH (08:45)
[2018-03-05] MEDS: MAGNESIUM OXIDE 400 MG TAB PO SCH ×2 (08:45→20:46)
[2018-03-05] MEDS: FAMOTIDINE 20 MG TAB PO SCH ×2 (08:45→20:46)
[2018-03-05] MEDS: BACLOFEN 10 MG TAB PO SCH ×3 (08:46→20:46)
[2018-03-05] MEDS: VITAMIN A & D 5 GM OINT PACKET TOP SCH ×2 (08:47→20:47)
[2018-03-05] MEDS: DOCUSATE SODIUM 100 MG CAP PO SCH ×2 (08:49→20:46)
[2018-03-05] MEDS: NYSTATIN 15 GM POWDER BTL TOP SCH ×2 (08:54→20:50)
[2018-03-05] MEDS: BALSAM PERU/CASTOR OIL 60 GM TUBE TOP SCH (08:54)
[2018-03-05] MEDS: HYDROCORTISONE 1% 28 GM CR TOP SCH ×2 (08:54→20:50)
[2018-03-05] MEDS: SODIUM HYPOCHLORITE (1/40) 1 APPLIC BTL IRR SCH (08:54)
[2018-03-05] MEDS: COLLAGENASE 5 GM (UD JAR) TOP SCH ×2 (08:56)
[2018-03-05] MEDS: morphine LIQ (10 MG/5 ML) CUP PO PRN (08:57)
--- NOTE | 2018-03-05 09:59 | PN ---
Date/Time of Note Date/Time of Note DATE: 03/05/18 TIME: 09:53 Assessment/Plan Lines/Catheters IV Catheter Type (from Nrs): Saline Lock Benavidez in Place (from Nrs): Yes Assessment/Plan Chief Complaint/Hosp Course 1. Stage 3 necrotic wound: Noted with stool contamination s/p repeat excisional debridement 02/20; now with noted blisters -cont local care> Santyl to sacrum > consider follow ups at wound care clinic near where he will be discharged; protective foam on blisters -frequent turning and off-loading -low air loss mattress -vitamin c -short term zinc -optimize nutrition -skin protection against devices 2. Bilateral lower extremity ulcers: with wound vac -As above -Per podiatry 3. Hypochromic microcytic anemia: -Monitor and transfuse as needed 4. Depression: -Psychiatric optimization 5. Paraplegia -Supportive 6. Hypertension -nutrition and medication optimization Thank you. Patient seen and examined in collaboration with Dr. Brian Angulo. Subjective 24 Hr Interval Summary No fevers, chills, sob, congested cough, cp, palpitations, woody, dizziness, n/v/d/dysuria. Wound vac continues. + bowel function Exam/Review of Systems Vital Signs Vitals Vital Signs Date Temp Pulse Resp B/P (MAP) Pulse Ox O2 O2 Flow FiO2 Time Delivery Rate 03/05/18 97.8 72 18 109/64 99 08:12 (79) 03/01/18 Room Air 08:36 Intake and Output 03/04/18 03/04/18 03/05/18 1515:00 23:00 07:00 IntakeIntake Total 340 ml 1850 ml 950 ml OutputOutput Total 1200 ml 900 ml 800 ml BalanceBalance -860 ml 950 ml 150 ml Exam Free Text/Dictation Constitutional: alert, oriented Psych: nl mood/affect, anxiety (Minimal) Head: normocephalic, atraumatic Eyes: nl conjunctiva, EOMI, nl sclera ENMT: nl external ears & nose, nl lips & teeth, mucosa pink and moist Neck: supple, non-tender Respiratory: normal air movement; No congested cough Cardiovascular: regular rate and rhythm; No edema Gastrointestinal: soft, non-tender; No distended Musculoskeletal: nl extremities to inspection; No nl gait and stance Extremities: normal pulses; No edema Neurological: nl mental status, nl speech Skin: nl turgor, Sacral wound: no periwound erythema, no drainage, min slough; wound vac to lower leg; right thigh skin blister Results Result Diagram: 03/05/18 0706 FERNANDO DÍAZ NP Mar 05, 2018 09:59
--- NOTE | 2018-03-05 10:09 | NUR ---
WOUND CARE FOLLOW UP: 57-year-old male with a history of paraplegia reportedly for the last 6 months secondary to spinal cord syndrome presents to the ER with ulcers on both his feet. Patient awake, alert, oriented. He is able to turn with moderate assist. Benavidez cath in place. Incontinent of bowel. Patient on low air loss surface. Patient seen by Senior Business Manager Dr. Courtney and Dr. Adan for bilateral lower extremities wounds. ASSESSMENT/RECOMMENDATIONS: - Right anterior ankle healing stage 2 pressure injury evolved from intact deep tissue pressure injury possible related to TERRIE wrap. 4.5cmx3.3cmx<0.1cm. 100% red partial thickness wound with epithelization tissue. Scant serous drainage. No odor. Continue Xeroform dressing Change daily Per DPM order. - Right lateral blood blisters x 2. Proximal blister measured 2cmx1.2bmx8yv. Distal blister measured 1.8cmx0.5uma5kh. Intact blood blisters. Periwound intact. No drainage. No odor. There is no pressure noted to the area at this time. Right foot wrap with Kerlix. Continue to observe area. Discussed with Dr. Adan. He will follow up with patient today and assess the blood blisters area. Recommended to apply Venelex ointment BID and cover with foam dressing. Please follow wound care order per Dr. Cortez once DPM sees the patient. Please notify MD and wound nurse if any change of wound condition. - Low air loss surface. - Reposition every 2 hours. - Float heels off bed by alternating HeelMedix and pillows every 2 hours. Apply Straps loosely. Discussed assessment and plan of care with Taz KEITA. RN to obtain wound care recommendations from DPM. GARFIELD Marrufo RN Addendum: 03/05/18 at 1026 by DELILAH ARRIAGA RN CORRECTION FOR ABOVE DOCUMENTATION: - Right anterior ankle healing stage 2 pressure injury evolved from intact deep tissue pressure injury possible related to TERRIE wrap. 4.5cmx3.3cmx<0.1cm. 100% pink/red partial thickness wound with epithelization tissue. Scant serous drainage. No odor. Recommended to cleanse with normal saline. Cover with Xeroform and with foam border dressing. - Right lateral blood blisters x 2. Proximal blister intact deep tissue pressure injury. Measured 2cmx1.1ulk8dc. Distal previous blister deep tissue pressure injury resolved. Periwound intact. No drainage. No odor. Continue to cover with Xeroform and foam dressing. Please notify MD and wound nurse if any change of wound condition. - Low air loss surface. - Reposition every 2 hours. - Float heels off bed by alternating HeelMedix and pillows every 2 hours. Apply Straps loosely. Discussed assessment and plan of care with RN, Grant. Delilah Arriaga BSN RN CWOCN
--- NOTE | 2018-03-05 11:28 | NUR ---
PT NOTE Therapy day number 12 Subjective Current complaint of pain Pain Scale NUMERIC Pain Intensity 5 (0-10) Patient Stated Goal for Pain Relief 0 (0-10) Pain Level Comment generalized pain Exercise Assessment Label Bilat Upper Extremity Exercise Type Active ROM Additional Exercise Comments shoulder D1 with RTB Exercise Start Time 11:18 Exercise End Time 11:28 Total Exercise Time 10 min (8-127) Transfer Training Start Time 11:00 Supine to Sit Maximum Assist Bed Mobility Sit to Supine Moderate Assist Sitting Tolerance 15 min Additional Mobility Comments modA for rolling L and R; maxA x 1 for supine>sitting; modA x 2 for sit>sup Transfer Training End Time 11:18 Total Transfer Training Time 18 min (8-127) Static Sitting Balance Fair Dynamic Sitting Balance Fair minus Additional Balance Assessments Comments seated balance exercises: elbows to bed, A/P lean without UE support, cross Safety Judgement Fair Activity Tolerance Fair Equipment Present Benavidez Catheter Additional Equipment Present WOUND VAC Post Treatment Pain Intensity 5 0-10 Variance Documentation SEE PT NOTES Total Treament Time 28 min (8-127) Total Minutes 28 Total Units 2 PT Technical Record Comment PT NOTE S: Pt reported fear of participating due to wound vac, pt reassured it was not a problem O: RN Grant cleard pt for PT session. Pt received in bed, noted R heel wound vac. Pt participated in interventions above. Pt required 2PA to return to bed and for safety in guarding with seated balance exercises. Pt returned to bed, all needs in reach, B heels floated using bed bolster, bed alarm activated. RN notified of pt's status. A: Pt continues to demonstrate limitations in static and dynamic sitting balance (fair and fair -, respectively), especially without UE support. Pt with some progress in bed mobility, especially rolling. Continue to recommned d/c to SNF once cleared by PT for further therapies. P: Continue c PT POC
[2018-03-05 14:43] VITALS: BP 116/67; PULSE 79; RESP 18
--- NOTE | 2018-03-05 15:14 | CONS ---
Date/Time of Note Date/Time of Note DATE: 03/05/18 TIME: 15:14 Assessment/Plan Assessment/Plan Hospital Course Patient is alert in no distress denies pain no fevers, no labs today Microbiology: Right heel wound culture grew enterococcus and Enterobacter cloaca Antimicrobials patient is on vancomycin and meropenem Physical examination: Well-nourished well-developed middle-aged man who is awake in no distress. Head atraumatic normocephalic sclera nonicteric vehicle mucosa dry neck is supple chest rise symmetrical breath sounds diminished bases heart S1-S2. Abdomen soft bowel sounds present. Extremities without cyanosis. Assessment: 1. Right foot ulceration status post debridement down to muscle 2. Stage III sacral wound 3. Paraplegia 4. Hypertension 5. Diabetes Plan: Patient remains stable surgery and podiatry on case. Continue present care, antibiotics, local wound care. Result Diagram: 03/05/18 0706 Results 24hrs Laboratory Tests Test 03/05/18 07:06 Sodium Level 141 Potassium Level 4.1 Chloride Level 108 Carbon Dioxide Level 23 Anion Gap 10 Blood Urea Nitrogen 36 H Creatinine 0.76 Est Glomerular Filtrat Rate mL/min > 60 Glucose Level 92 Calcium Level 9.4 Consultation Date/Type/Reason Admit Date/Time Jan 26, 2018 at 08:29 Initial Consult Date 02/12/18 Type of Consult id Requesting Provider: LIVIA AADME V. SCRAP SAWYER Exam/Review of Systems Vital Signs Vitals Vital Signs Date Temp Pulse Resp B/P (MAP) Pulse Ox O2 O2 Flow FiO2 Time Delivery Rate 03/05/18 97.5 79 18 116/67 99 14:43 (83) 03/01/18 Room Air 08:36 Intake and Output 03/04/18 03/04/18 03/05/18 1515:00 23:00 07:00 IntakeIntake Total 340 ml 1850 ml 950 ml OutputOutput Total 1200 ml 900 ml 800 ml BalanceBalance -860 ml 950 ml 150 ml Medications Medications Current Medications IV Flush (NS 3 ml) 3 ml PER PROTOCOL IV ; Start 01/25/18 at 15:30 Ondansetron HCl (Zofran Inj) 4 mg Q6H PRN IV NAUSEA AND/OR VOMITING; Start 01/25/18 at 15:30 Acetaminophen (Tylenol Tab) 650 mg Q6H PRN PO PAIN LEVEL 1-3 OR FEVER; Start 01/25/18 at 15:30 Acetaminophen/ Hydrocodone Bitart ([place] (5/325)) 1 tab Q6H PRN PO MODERATE PAIN LEVEL 4-6 Last administered on 03/05/18 13:06; Admin Dose 1 TAB; Start 01/25/18 at 15:30 Allopurinol (Zyloprim) 100 mg DAILY PO Last administered on 03/05/18 08:45; Admin Dose 100 MG; Start 01/26/18 at 09:00 Baclofen (Lioresal) 10 mg TID PO Last administered on 03/05/18 13:06; Admin Dose 10 MG; Start 01/25/18 at 21:00 Carvedilol (Coreg) 12.5 mg BID PO Last administered on 03/04/18 21:07; Admin Dose 12.5 MG; Start 01/25/18 at 21:00 Duloxetine HCl (Cymbalta) 30 mg DAILY PO Last administered on 03/05/18 08:45; Admin Dose 30 MG; Start 01/26/18 at 09:00 Famotidine (Pepcid) 20 mg BID PO Last administered on 03/05/18 08:45; Admin Dose 20 MG; Start 01/25/18 at 21:00 Folic Acid (Folic Acid) 1 mg DAILY PO Last administered on 03/05/18 08:45; Admin Dose 1 MG; Start 01/26/18 at 09:00 Gabapentin (Neurontin) 100 mg BID PO Last administered on 03/05/18 08:45; Admin Dose 100 MG; Start 01/25/18 at 21:00 Magnesium Oxide (Mag-Ox 400) 400 mg BID PO Last administered on 03/05/18 08:45; Admin Dose 400 MG; Start 01/25/18 at 21:00 Nystatin 1 applic BID TOP Last administered on 03/05/18 08:54; Admin Dose 1 APPLIC; Start 01/25/18 at 21:00 Pyridoxine HCl (Vitamin B6) 50 mg DAILY PO Last administered on 03/05/18 08:45; Admin Dose 50 MG; Start 01/26/18 at 09:00 Risperidone (Risperdal) 1 mg QHS PO Last administered on 03/04/18 21:05; Admin Dose 1 MG; Start 11/25/18 at 21:00 Zonisamide (Zonegran) 300 mg QHS PO Last administered on 03/04/18 21:06; Admin Dose 300 MG; Start 01/25/18 at 21:00 Eye Lubricant (Artificial Tears Oph) 1 drop Q8 BOTH EYES Last administered on 03/05/18 13:06; Admin Dose 1 DROP; Start 01/25/18 at 22:00 Miscellaneous Information (Pending Santyl Order For Wound Care) This patient woody... PRN PRN XX wound; Start 01/25/18 at 16:30 Vitamin A/Vitamin D (Vitamin A & D Oint) 1 applic BID TOP Last administered on 03/05/18 08:47; Admin Dose 1 APPLIC; Start 01/26/18 at 21:00 Docusate Sodium (Colace) 200 mg BID PO Last administered on 03/05/18 08:49; Admin Dose 200 MG; Start 01/27/18 at 21:00 Enoxaparin Sodium (Lovenox) 40 mg DAILY SC Last administered on 03/05/18 08:44; Admin Dose 40 MG; Start 01/28/18 at 09:00 Sodium Hypochlorite (Dakin'S (Dilute 1/40)) 1 applic DAILY IRR Last administered on 03/05/18 08:54; Admin Dose 1 APPLIC; Start 01/27/18 at 18:30 Collagenase (Santyl) 1 applic DAILY TOP Last administered on 03/04/18 10:07; Admin Dose 1 APPLIC; Start 01/27/18 at 17:30 Hydrocortisone (Hydrocortisone 1% Cr) 1 applic BID TOP Last administered on 03/05/18 08:54; Admin Dose 1 APPLIC; Start 01/27/18 at 21:19 Collagenase (Santyl) 1 applic DAILY TOP Last administered on 03/04/18 10:08; A dmin Dose 1 APPLIC; Start 02/04/18 at 09:00 Nitroglycerin (Nitroglycerin (Sl Tab) 0.4 Mg) 1 tab Q5M PRN SL ANGINA; Start 02/05/18 at 07:00 Morphine Sulfate (morphine) 6 mg Q4H PRN PO SEVERE PAIN LEVEL 7-10 Last administered on 03/05/18 08:57; Admin Dose 6 MG; Start 02/11/18 at 20:00 Diphenhydramine HCl (Benadryl) 25 mg Q6H PRN IV itching Last administered on 02/20/18at 09:57; Admin Dose 25 MG; Start 02/19/18 at 14:00 Vancomycin HCl (Vanco Iv Per Pharmacy) VANCOMYCIN PER PHARMACY PER PROTOCOL XX ; Start 03/04/18 at 16:30 Meropenem/Sodium Chloride 50 ml @ 100 mls/hr Q12 IVPB Last administered on 03/05/18at 08:44; Admin Dose 100 MLS/HR; Start 03/04/18 at 21:00 Vancomycin HCl 100 ml @ 100 mls/hr ONCE IVPB ; Start 03/05/18 at 16:30; Stop 03/05/18 at 20:00 Vancomycin HCl 1.5 gm/Sodium Chloride 250 ml @ 83.333 mls/ hr Q24H IVPB ; Start 03/06/18 at 16:00 DINA VICTOR NP Mar 05, 2018 15:14
--- NOTE | 2018-03-05 15:17 | NUR ---
VANCO PER RX: D/C VANCO 1 GM IVPB Q12H. CHANGE VANCO TO 1.5 GM IVPB Q24H STARTING TOMORROW (BASED ON PRIOR VANC PK HX). VANCO 1 GM GIVEN TODAY AM. PLEASE, GIVE ADDITIONAL DOSE VANCOMYCIN 500 MG IVPB X 1 TODAY (TOTAL DOSE TODAY = 1.5 GM).
--- NOTE | 2018-03-05 15:19 | PN ---
Date/Time of Note Date/Time of Note DATE: 03/05/18 TIME: 15:17 Assessment/Plan VTE Prophylaxis Risk score (from Ns)>0 risk: 6 SCD applied (from Nsg): Yes Pharmacological prophylaxis: LMWH Lines/Catheters IV Catheter Type (from Nrsg): Saline Lock Urinary Cath still in place: Yes Reason Cath still needed: pres ulcer contaminated by urine Assessment/Plan Hospital Course SUBJECTIVE: No acute overnight episodes. OBJECTIVE: Vital signs-see below PHYSICAL EXAM: Constitutional: Bedbound male, not in acute distress. Psych: nl mood/affect, no complaints Head: atraumatic, normocephalic Eyes: nl conjunctiva, nl sclera ENMT: mucosa pink and moist, nl external ears & nose Neck: non-tender, supple Respiratory: clear to auscultation, normal air movement Cardiovascular: nl pulses, regular rate and rhythm Gastrointestinal: non-tender, soft, bowel sounds active in all 4 quadrants. Musculoskeletal/extremities: Paraplegic. Normal pulses,no cyanosis, no edema. Neurological: Alert oriented 3,nl speech, nl strength Skin: Bilateral heel with ulcers, covered with dressing. No oozing noted on dressing. Nl turgor ASSESSMENT/PLAN: Very unfortunate 57-year-old male with a history of paraplegia secondary to spinal cord syndrome 6 months ago, who also resides in a detention, presented to the emergency room with worsening bilateral heel ulcers with foul-smelling drainage.... 1. Bilateral heel Decub ulcers without evidence of OM.Wound cultures: Enter obacter cloacae -s/p excisional debridement of bilateral heel decubitus wounds 01/26=>Left heel resolved -ulcers progressed on Rt heel => Repeat Bedside debridement and application of wound vac 03/04/18 -Antibiotic management per ID -Wound care per podiatry 2. Paraplegia secondary to spinal disorder and back surgery 6 months ago -Exact nature of disorder and surgery unclear -Continue baclofen 3. Depression -Continue home Cymbalta 4. Hypertension -Continue Coreg 5. Debility secondary to #2. -Patient resides in a detention. 6. Chronic anemia with mild iron deficiency. -Stable H&H after 1 unit transfusion. -Continue oral iron replacement. 7. Unstageable pressure ulcers, sacral coccyx -S/o bedside debridement 02/13/18 -Continue wound care Prophylaxis:Lovenox/Pepcid Diet: Regular CODE STATUS: Full code Disposition: Continue current medical management. cont abx per podiatry /ID recs. pending detention placement. Patient was seen in collaboration with [facility] Indication/DC Plan: SNF PLACEMENT Result Diagram: 03/05/18705 Results 24hrs Laboratory Tests Test 03/05/18 07:06 Sodium Level 141 Potassium Level 4.1 Chloride Level 108 Carbon Dioxide Level 23 Anion Gap 10 Blood Urea Nitrogen 36 H Creatinine 0.76 Est Glomerular Filtrat Rate mL/min > 60 Glucose Level 92 Calcium Level 9.4 Exam/Review of Systems Vital Signs Vitals Vital Signs Date Temp Pulse Resp B/P (MAP) Pulse Ox O2 O2 Flow FiO2 Time Delivery Rate 03/05/18 97.5 79 18 116/67 99 14:43 (83) 03/01/18 Room Air 08:36 Intake and Output 03/04/18 03/04/18 03/05/18 1515:00 23:00 07:00 IntakeIntake Total 340 ml 1850 ml 950 ml OutputOutput Total 1200 ml 900 ml 800 ml BalanceBalance -860 ml 950 ml 150 ml Medications Medications Current Medications IV Flush (NS 3 ml) 3 ml PER PROTOCOL IV ; Start 01/25/18 at 15:30 Ondansetron HCl (Zofran Inj) 4 mg Q6H PRN IV NAUSEA AND/OR VOMITING; Start 01/25/18 at 15:30 Acetaminophen (Tylenol Tab) 650 mg Q6H PRN PO PAIN LEVEL 1-3 OR FEVER; Start 1 03/27/17 at 15:30 Acetaminophen/ Hydrocodone Bitart ([place] (5/325)) 1 tab Q6H PRN PO MODERATE PAIN LEVEL 4-6 Last administered on 03/05/18 13:06; Admin Dose 1 TAB; Start 01/25/18 at 15:30 Allopurinol (Zyloprim) 100 mg DAILY PO Last administered on 03/05/18 08:45; Admin Dose 100 MG; Start 01/26/18 at 09:00 Baclofen (Lioresal) 10 mg TID PO Last administered on 03/05/18 13:06; Admin Dose 10 MG; Start 01/25/18 at 21:00 Carvedilol (Coreg) 12.5 mg BID PO Last administered on 03/04/18 21:07; Admin Dose 12.5 MG; Start 01/25/18 at 21:00 Duloxetine HCl (Cymbalta) 30 mg DAILY PO Last administered on 03/05/18 08:45; Admin Dose 30 MG; Start 01/26/18 at 09:00 Famotidine (Pepcid) 20 mg BID PO Last administered on 03/05/18 08:45; Admin Dose 20 MG; Start 01/25/18 at 21:00 Folic Acid (Folic Acid) 1 mg DAILY PO Last administered on 03/05/18 08:45; Admin Dose 1 MG; Start 01/26/18 at 09:00 Gabapentin (Neurontin) 100 mg BID PO Last administered on 03/05/18 08:45; Admin Dose 100 MG; Start 01/25/18 at 21:00 Magnesium Oxide (Mag-Ox 400) 400 mg BID PO Last administered on 03/05/18 08:45; Admin Dose 400 MG; Start 01/25/18 at 21:00 Nystatin 1 applic BID TOP Last administered on 03/05/18 08:54; Admin Dose 1 APPLIC; Start 01/25/18 at 21:00 Pyridoxine HCl (Vitamin B6) 50 mg DAILY PO Last administered on 03/05/18 08:45; Admin Dose 50 MG; Start 01/26/18 at 09:00 Risperidone (Risperdal) 1 mg QHS PO Last administered on 03/04/18 21:05; Admin Dose 1 MG; Start 01/25/18 at 21:00 Zonisamide (Zonegran) 300 mg QHS PO Last administered on 03/04/18 21:06; Admin Dose 300 MG; Start 01/25/18 at 21:00 Eye Lubricant (Artificial Tears Oph) 1 drop Q8 BOTH EYES Last administered on 03/05/18 13:06; Admin Dose 1 DROP; Start 01/25/18 at 22:00 [facility]isc[facility] This patient woody... PRN PRN XX wound; Start 01/25/18 at 16:30 Vitamin A/Vitamin D (Vitamin A & D Oint) 1 applic BID TOP Last administered on 03/05/18 08:47; Admin Dose 1 APPLIC; Start 01/26/18 at 21:00 Docusate Sodium (Colace) 200 mg BID PO Last administered on 03/05/18 08:49; Admin Dose 200 MG; Start 01/27/18 at 21:00 Enoxaparin Sodium (Lovenox) 40 mg DAILY SC Last administered on 03/05/18 08:44; Admin Dose 40 MG; Start 01/28/18 at 09:00 Sodium Hypochlorite (Dakin'S (Dilute )) 1 applic DAILY IRR Last administered on 03/05/18 08:54; Admin Dose 1 APPLIC; Start 01/27/18 at 18:30 Collagenase (Santyl) 1 applic DAILY TOP Last administered on 03/04/18 10:07; Admin Dose 1 APPLIC; Start 01/27/18 at 17:30 Hydrocortisone (Hydrocortisone 1% Cr) 1 applic BID TOP Last administered on 03/05/18 08:54; Admin Dose 1 APPLIC; Start 01/27/18 at 21:19 Collagenase (Santyl) 1 applic DAILY TOP Last administered on 03/04/18 10:08; Admin Dose 1 APPLIC; Start 02/04/18 at 09:00 Nitroglycerin (Nitroglycerin (Sl Tab) 0.4 Mg) 1 tab Q5M PRN SL ANGINA; Start 02/05/18 at 07:00 Morphine Sulfate (morphine) 6 mg Q4H PRN PO SEVERE PAIN LEVEL 7-10 Last administered on 03/05/18 08:57; Admin Dose 6 MG; Start 02/11/18 at 20:00 Diphenhydramine HCl (Benadryl) 25 mg Q6H PRN IV itching Last administered on 02/20/18at 09:57; Admin Dose 25 MG; Start 02/19/18 at 14:00 Vancomycin HCl (Vanco Iv Per Pharmacy) VANCOMYCIN PER PHARMACY PER PROTOCOL XX ; Start 03/04/18 at 16:30 Meropenem/Sodium Chloride 50 ml @ 100 mls/hr Q12 IVPB Last administered on 03/05/18 08:44; Admin Dose 100 MLS/HR; Start 03/04/18 at 21:00 Vancomycin HCl 100 ml @ 100 mls/hr ONCE IVPB ; Start 03/05/18 at 16:30; Stop 03/05/18 at 20:00 Vancomycin HCl 1.5 gm/Sodium Chloride 250 ml @ 83.333 mls/ hr Q24H IVPB ; Start 03/06/18 at 16:00 LIVIA ADAME NP Mar 05, 2018 15:18
[2018-03-05] MEDS ORDERED: VANCOMYCIN 500 MG (PMX) 100 ML IVPB SCH (16:30)
--- NOTE | 2018-03-05 18:03 | NUR ---
rn notes patient is alert and oriented X4, verbally responsive and able to make needs known, complains of pain and medicated as ordered and effective. all due medicine given and all needs attended to. turned and repositioned as scheduled and no new skin breakdown noted. kept clean and dry. wound dressing changed and kept clean and intact. continue wound vac therapy for right foot. call light placed within reach and fall precautions observed well. remains afebrile and will continue to monitor.
[2018-03-05 20:02] VITALS: BP 117/65; PULSE 91; RESP 20
[2018-03-05] MEDS: RISPERIDONE 1 MG TAB PO SCH (20:46)
[2018-03-05] MEDS: ZONISAMIDE 100 MG CAP PO SCH (20:46)
[2018-03-06 01:57] VITALS: BP 99/56; PULSE 76; RESP 18
[2018-03-06] MEDS: ARTIFICIAL TEARS 15 ML OPH BOTH EYES SCH ×3 (06:18→21:22)
[2018-03-06 08:09] VITALS: BP 126/70; PULSE 67; RESP 18
[2018-03-06] MEDS: VITAMIN A & D 5 GM OINT PACKET TOP SCH ×2 (09:07→21:00)
[2018-03-06] MEDS: COLLAGENASE 5 GM (UD JAR) TOP SCH ×2 (09:07)
[2018-03-06] MEDS: MEROPENEM 1 GM/50ML(PMX) 50 ML IVPB SCH ×2 (09:08→20:09)
[2018-03-06] MEDS: DOCUSATE SODIUM 100 MG CAP PO SCH ×2 (09:08→20:13)
[2018-03-06] MEDS: ENOXAPARIN 40 MG/0.4 ML SYG SC SCH (09:08)
[2018-03-06] MEDS: BACLOFEN 10 MG TAB PO SCH ×3 (09:09→20:14)
[2018-03-06] MEDS: ALLOPURINOL 100 MG TAB PO SCH (09:09)
[2018-03-06] MEDS: PYRIDOXINE 50 MG TAB PO SCH (09:09)
[2018-03-06] MEDS: FOLIC ACID 1 MG TAB PO SCH (09:09)
[2018-03-06] MEDS: HYDROCODONE/APAP (5/325) TAB PO PRN ×2 (09:09→20:14)
[2018-03-06] MEDS: GABAPENTIN 100 MG CAP PO SCH ×2 (09:09→20:14)
[2018-03-06] MEDS: MAGNESIUM OXIDE 400 MG TAB PO SCH ×2 (09:09→20:14)
[2018-03-06] MEDS: DULOXETINE 30 MG CAP DR PO SCH (09:09)
[2018-03-06] MEDS: FAMOTIDINE 20 MG TAB PO SCH ×2 (09:09→20:13)
[2018-03-06] MEDS: SODIUM HYPOCHLORITE (1/40) 1 APPLIC BTL IRR SCH (09:16)
[2018-03-06] MEDS: NYSTATIN 15 GM POWDER BTL TOP SCH ×2 (09:16→21:00)
[2018-03-06] MEDS: HYDROCORTISONE 1% 28 GM CR TOP SCH ×2 (09:17→21:00)
[2018-03-06] MEDS: BALSAM PERU/CASTOR OIL 60 GM TUBE TOP SCH (09:17)
--- NOTE | 2018-03-06 09:50 | PN ---
Date/Time of Note Date/Time of Note DATE: 03/06/18 TIME: 09:42 Assessment/Plan Lines/Catheters IV Catheter Type (from [facility]): Saline Lock Benavidez in Place (from [facility]): Yes Assessment/Plan Chief Complaint/Hosp Course 1. Stage 3 necrotic wound: Noted with stool contamination s/p repeat excisional debridement 02/20; now with noted blisters -enlarging blister>will perform I&D&D today -cont local care> Santyl to sacrum > consider follow ups at wound care clinic near where he will be discharged -frequent turning and off-loading -low air loss mattress -vitamin c -short term zinc -optimize nutrition -skin protection against devices 2. Bilateral lower extremity ulcers: with wound vac -As above -Per podiatry 3. Hypochromic microcytic anemia: -Monitor and transfuse as needed 4. Depression: -Psychiatric optimization 5. Paraplegia -Supportive 6. Hypertension -nutrition and medication optimization Thank you. Patient seen and examined in collaboration with Dr. Brian Angulo. Subjective 24 Hr Interval Summary Feels well. No fevers, chills, sob, congested cough, cp, palpitations, woody, dizziness, n/v/d/dysuria, wound drainage or odor. Exam/Review of Systems Vital Signs Vitals Vital Signs Date Temp Pulse Resp B/P (MAP) Pulse Ox O2 O2 Flow FiO2 Time Delivery Rate 03/06/18 98.9 80 19 92/52 (65) 98 14:44 Intake and Output 03/05/18 03/05/18 03/06/18 1515:00 23:00 07:00 IntakeIntake Total 1140 ml 710 ml 120 ml OutputOutput Total 750 ml 750 ml BalanceBalance 1140 ml -40 ml -630 ml Exam Free Text/Dictation Constitutional: alert, oriented Psych: nl mood/affect, anxiety (Minimal) Head: normocephalic, atraumatic Eyes: nl conjunctiva, EOMI, nl sclera ENMT: nl external ears & nose, nl lips & teeth, mucosa pink and moist Neck: supple, non-tender Respiratory: normal air movement; No congested cough Cardiovascular: regular rate and rhythm; No edema Gastrointestinal: soft, non-tender; No distended Musculoskeletal: nl extremities to inspection; No nl gait and stance Extremities: normal pulses; No edema Neurological: nl mental status, nl speech Skin: nl turgor, Sacral wound: no periwound erythema, no drainage, min slough; wound vac to lower leg; right thigh skin blister (enlarging) Results Result Diagram: 03/05/18 0706 FERNANDO DÍAZ NP Mar 06, 2018 09:50
--- NOTE | 2018-03-06 11:11 | NUR ---
PT NOTE Subjective Denies pain Pain Scale NUMERIC Pain Intensity 0 (0-10) Patient Stated Goal for Pain Relief 0 (0-10) Pain Level Comment Denies pain Exercise Assessment Label Bilat Lower Extremity Exercise Type Manual Stretching Additional Exercise Comments Supine: PROM, heel slides, hip abd/add and manual stretching in all planes Exercise Start Time 11:11 Exercise End Time 11:39 Total Exercise Time 28 min (8-127) Activity Tolerance Fair Equipment Present Benavidez Catheter Additional Equipment Present WOUND VAC Post Treatment Pain Intensity 0 0-10 Variance Documentation SEE BELOW AND PT NOTE Total Treament Time 28 min (8-127) Total Minutes 28 Total Units 2 PT Technical Record Comment PT NOTE S: Pt stated, "Right now I am okay. No pain for now." Pt speaks Hebrew. Agreeable for PT and cleared per NEELA Burns. O: Received pt in semi-fowlers, alert. This therapist performed PROM and manual stretching to BLE in all planes. Noted pt experienced intermittent BLE spasms. Left pt in comfort position, call light/phone within reach, bed alarmed, and all needs met. NEELA Burns informed of pt's status. A: Fair tolerance to tx. Pt showed no signs of distress or SOB during or after tx. No c/o dizziness,nausea, or pain throughout tx. Limited tx and no EOB activities today due to unavailable 2PA. P: Continue POC and progress as tolerated.
--- NOTE | 2018-03-06 12:54 | PN ---
Date/Time of Note Date/Time of Note DATE: 03/06/18 TIME: 12:52 Assessment/Plan VTE Prophylaxis Risk score (from Nsg)>0 risk: 6 SCD applied (from Nsg): Yes Pharmacological prophylaxis: LMWH Lines/Catheters IV Catheter Type (from Nrsg): Saline Lock Urinary Cath still in place: Yes Reason Cath still needed: skin wounds contaminated by urine Assessment/Plan Hospital Course SUBJECTIVE: No acute overnight episodes. OBJECTIVE: Vital signs-see below PHYSICAL EXAM: Constitutional: Bedbound male, not in acute distress. Psych: nl mood/affect, no complaints Head: atraumatic, normocephalic Eyes: nl conjunctiva, nl sclera ENMT: mucosa pink and moist, nl external ears & nose Neck: non-tender, supple Respiratory: clear to auscultation, normal air movement Cardiovascular: nl pulses, regular rate and rhythm Gastrointestinal: non-tender, soft, bowel sounds active in all 4 quadrants. Musculoskeletal/extremities: Paraplegic. Normal pulses,no cyanosis, no edema. Neurological: Alert oriented 3,nl speech, nl strength Skin: Bilateral heel with ulcers, covered with dressing. No oozing noted on dressing. Nl turgor ASSESSMENT/PLAN: Very unfortunate 57-year-old male with a history of paraplegia secondary to spinal cord syndrome 6 months ago, who also resides in a prison, presented to the emergency room with worsening bilateral heel ulcers with foul-smelling drainage.... 1. Bilateral heel Decub ulcers without evidence of OM -s/p excisional debridement of bilateral heel decubitus wounds 01/26=>.Wound cultures: Enterobacter cloacae -Left heel resolved -ulcers progressed on Rt heel => Repeat Bedside debridement and application of wound vac 03/04/18=>WC growing same species -Antibiotic management per ID -Wound care per podiatry 2. Paraplegia secondary to spinal disorder and back surgery 6 months ago -Exact nature of disorder and surgery unclear -Continue baclofen 3. Depression -Continue home Cymbalta 4. Hypertension -Continue Coreg 5. Debility secondary to #2. -Patient resides in a prison. 6. Chronic anemia with mild iron deficiency. -Stable H&H after 1 unit transfusion. -Continue oral iron replacement. 7. Unstageable pressure ulcers, sacral coccyx -S/o bedside debridement 02/13/18 -Continue wound care Prophylaxis:Lovenox/Pepcid Diet: Regular CODE STATUS: Full code Disposition: Continue current medical management. cont abx per podiatry /ID recs. pending prison placement. Patient was seen in collaboration with Dr.Rahi Sweet Hosp Indication/DC Plan: SNF PLACEMENT Result Diagram: 03/05/18705 Exam/Review of Systems Vital Signs Vitals Vital Signs Date Temp Pulse Resp B/P (MAP) Pulse Ox O2 O2 Flow FiO2 Time Delivery Rate 03/06/18 98.0 67 18 126/70 96 08:09 (88) Intake and Output 03/05/18 03/05/18 03/06/18 1515:00 23:00 07:00 IntakeIntake Total 1140 ml 710 ml 120 ml OutputOutput Total 750 ml 750 ml BalanceBalance 1140 ml -40 ml -630 ml Medications Medications Current Medications IV Flush (NS 3 ml) 3 ml PER PROTOCOL IV ; Start 01/25/18 at 15:30 Ondansetron HCl (Zofran Inj) 4 mg Q6H PRN IV NAUSEA AND/OR VOMITING; Start 01/25/18 at 15:30 Acetaminophen (Tylenol Tab) 650 mg Q6H PRN PO PAIN LEVEL 1-3 OR FEVER; Start 01/25/18 at 15:30 Acetaminophen/ Hydrocodone Bitart ([place] (5/325)) 1 tab Q6H PRN PO MODERATE PAIN LEVEL 4-6 Last administered on 03/06/18 09:09; Admin Dose 1 TAB; Start 01/25/18 at 15:30 Allopurinol (Zyloprim) 100 mg DAILY PO Last administered on 03/06/18 09:09; Admin Dose 100 MG; Start 01/26/18 at 09:00 Baclofen (Lioresal) 10 mg TID PO Last administered on 03/06/18 09:09; Admin Dose 10 MG; Start 01/25/18 at 21:00 Carvedilol (Coreg) 12.5 mg BID PO Last administered on 03/06/18 09:09; Admin Dose 12.5 MG; Start 01/25/18 at 21:00 Duloxetine HCl (Cymbalta) 30 mg DAILY PO Last administered on 03/06/18 09:09; Admin Dose 30 MG; Start 01/26/18 at 09:00 Famotidine (Pepcid) 20 mg BID PO Last administered on 03/06/18 09:09; Admin Dose 20 MG; Start 01/25/18 at 21:00 Folic Acid (Folic Acid) 1 mg DAILY PO Last administered on 03/06/18 09:09; Ad min Dose 1 MG; Start 01/26/18 at 09:00 Gabapentin (Neurontin) 100 mg BID PO Last administered on 03/06/18 09:09; Admin Dose 100 MG; Start 01/25/18 at 21:00 Magnesium Oxide (Mag-Ox 400) 400 mg BID PO Last administered on 03/06/18 09:09; Admin Dose 400 MG; Start 01/25/18 at 21:00 Nystatin 1 applic BID TOP Last administered on 03/06/18 09:16; Admin Dose 1 APPLIC; Start 01/25/18 at 21:00 Pyridoxine HCl (Vitamin B6) 50 mg DAILY PO Last administered on 03/06/18 09:09; Admin Dose 50 MG; Start 01/26/18 at 09:00 Risperidone (Risperdal) 1 mg QHS PO Last administered on 03/05/18 20:46; Admin Dose 1 MG; Start 01/25/18 at 21:00 Zonisamide (Zonegran) 300 mg QHS PO Last administered on 03/05/18 20:46; Admin Dose 300 MG; Start 01/25/18 at 21:00 Eye Lubricant (Artificial Tears Oph) 1 drop Q8 BOTH EYES Last administered on 03/06/18 06:18; Admin Dose 1 DROP; Start 01/25/18 at 22:00 Miscellaneous Information (Pending [facility] Order For Wound Care) This patient woody... PRN PRN XX wound; Start 01/25/18 at 16:30 Vitamin A/Vitamin D (Vitamin A & D Oint) 1 applic BID TOP Last administered on 03/06/18 09:07; Admin Dose 1 APPLIC; Start 01/26/18 at 21:00 Docusate Sodium (Colace) 200 mg BID PO Last administered on 03/06/18 09:08; Admin Dose 200 MG; Start 01/27/18 at 21:00 Enoxaparin Sodium (Lovenox) 40 mg DAILY SC Last administered on 03/06/18 09:08; Admin Dose 40 MG; Start 01/28/18 at 09:00 Sodium Hypochlorite (Dakin'S (Dilute 40)) 1 applic DAILY IRR Last administered on 03/06/18 09:16; Admin Dose 1 APPLIC; Start 01/27/18 at 18:30 Collagenase (Santyl) 1 applic DAILY TOP Last administered on 03/06/18 09:07; Admin Dose 1 APPLIC; Start 01/27/18 at 17:30 Hydrocortisone (Hydrocortisone 1% Cr) 1 applic BID TOP Last administered on 03/06/18 09:17; Admin Dose 1 APPLIC; Start 01/27/18 at 21:19 Collagenase (Santyl) 1 applic DAILY TOP Last administered on 03/06/18 09:07; Admin Dose 1 APPLIC; Start 02/04/18 at 09:00 Nitroglycerin (Nitroglycerin (Sl Tab) 0.4 Mg) 1 tab Q5M PRN SL ANGINA; Start 02/05/18 at 07:00 Morphine Sulfate (morphine) 6 mg Q4H PRN PO SEVERE PAIN LEVEL 7-10 Last administered on 03/05/18 08:57; Admin Dose 6 MG; Start 02/11/18 at 20:00 Diphenhydramine HCl (Benadryl) 25 mg Q6H PRN IV itching Last administered on 02/20/18 09:57; Admin Dose 25 MG; Start 02/19/18 at 14:00 Vancomycin HCl (Vanco Iv Per Pharmacy) VANCOMYCIN PER PHARMACY PER PROTOCOL XX ; Start 03/04/18 at 16:30 Meropenem/Sodium Chloride 50 ml @ 100 mls/hr Q12 IVPB Last administered on 03/06/18 09:08; Admin Dose 100 MLS/HR; Start 03/04/18 at 21:00 Vancomycin HCl 1.5 gm/Sodium Chloride 250 ml @ 83.333 mls/ hr Q24H IVPB ; Start 03/06/18 at 16:00 LIVIA ADAME NP Mar 06, 2018 12:54
[2018-03-06 14:44] VITALS: BP_SYST 92; BP_SYST 95; BP_DIAS 52; PULSE 80; RESP 19
--- NOTE | 2018-03-06 15:44 | CONS ---
Date/Time of Note Date/Time of Note DATE: 03/06/18 TIME: 15:42 Assessment/Plan Assessment/Plan Hospital Course Patient is alert looks comfortable no fevers overnight denies pain. Antimicrobials: Vancomycin meropenem Microbiology: Right heel wound culture grew enterococcus and Enterobacter cloacae, sacral wound culture growing enterococcus Physical examination: Well-nourished well-developed middle-aged man who is awake in no distress. Head atraumatic normocephalic sclera nonicteric vehicle mucosa dry neck is supple chest rise symmetrical breath sounds diminished bases heart S1-S2. Abdomen soft bowel sounds present. Extremities without cyanosis. Assessment: 1. Right foot ulceration status post debridement down to muscle 2. Stage III sacral wound 3. Paraplegia 4. Hypertension 5. Diabetes Plan: Patient remains stable, surgery and podiatry on case. Continue present care, follow final cultures Result Diagram: 03/05/18 0706 Consultation Date/Type/Reason Admit Date/Time Jan 26, 2018 at 08:29 Initial Consult Date 02/12/18 Type of Consult id Requesting Provider: LIVIA ADAME V. [employer] Exam/Review of Systems Vital Signs Vitals Vital Signs Date Temp Pulse Resp B/P (MAP) Pulse Ox O2 O2 Flow FiO2 Time Delivery Rate 03/06/18 98.9 80 19 92/52 (65) 98 14:44 Intake and Output 03/05/18 03/05/18 03/06/18 1515:00 23:00 07:00 IntakeIntake Total 1140 ml 710 ml 120 ml OutputOutput Total 750 ml 750 ml BalanceBalance 1140 ml -40 ml -630 ml Medications Medications Current Medications IV Flush (NS 3 ml) 3 ml PER PROTOCOL IV ; Start 01/25/18 at 15:30 Ondansetron HCl (Zofran Inj) 4 mg Q6H PRN IV NAUSEA AND/OR VOMITING; Start 01/25/18 at 15:30 Acetaminophen (Tylenol Tab) 650 mg Q6H PRN PO PAIN LEVEL 1-3 OR FEVER; Start 01/25/18 at 15:30 Acetaminophen/ Hydrocodone Bitart ([place] (5/325)) 1 tab Q6H PRN PO MODERATE PAIN LEVEL 4-6 Last administered on 03/06/18at 09:09; Admin Dose 1 TAB; Start 01/25/18 at 15:30 Allopurinol (Zyloprim) 100 mg DAILY PO Last administered on 03/06/18 09:09; Admin Dose 100 MG; Start 01/26/18 at 09:00 Baclofen (Lioresal) 10 mg TID PO Last administered on 03/06/18 13:21; Admin Dose 10 MG; Start 01/25/18 at 21:00 Carvedilol (Coreg) 12.5 mg BID PO Last administered on 03/06/18 09:09; Admin Dose 12.5 MG; Start 01/25/18 at 21:00 Duloxetine HCl (Cymbalta) 30 mg DAILY PO Last administered on 03/06/18 09:09; Admin Dose 30 MG; Start 01/26/18 at 09:00 Famotidine (Pepcid) 20 mg BID PO Last administered on 03/06/18 09:09; Admin Dose 20 MG; Start 01/25/18 at 21:00 Folic Acid (Folic Acid) 1 mg DAILY PO Last administered on 03/06/18 09:09; Admin Dose 1 MG; Start 01/26/18 at 09:00 Gabapentin (Neurontin) 100 mg BID PO Last administered on 03/06/18 09:09; Admin Dose 100 MG; Start 01/25/18 at 21:00 Magnesium Oxide (Mag-Ox 400) 400 mg BID PO Last administered on 03/06/18 09:09; Admin Dose 400 MG; Start 01/25/18 at 21:00 Nystatin 1 applic BID TOP Last administered on 03/06/18 09:16; Admin Dose 1 APPLIC; Start 01/25/18 at 21:00 Pyridoxine HCl (Vitamin B6) 50 mg DAILY PO Last administered on 03/06/18 09:09; Admin Dose 50 MG; Start 01/26/18 at 09:00 Risperidone (Risperdal) 1 mg QHS PO Last administered on 03/05/18 20:46; Admin Dose 1 MG; Start 01/25/18 at 21:00 Zonisamide (Zonegran) 300 mg QHS PO Last administered on 03/05/18 20:46; Admin Dose 300 MG; Start 01/25/18 at 21:00 Eye Lubricant (Artificial Tears Oph) 1 drop Q8 BOTH EYES Last administered on 03/06/18 13:21; Admin Dose 1 DROP; Start 01/25/18 at 22:00 Miscellaneous Information (Pending Santyl Order For Wound Care) This patient woody... PRN PRN XX wound; Start 01/25/18 at 16:30 Vitamin A/Vitamin D (Vitamin A & D Oint) 1 applic BID TOP Last administered on 03/06/18 09:07; Admin Dose 1 APPLIC; Start 01/26/18 at 21:00 Docusate Sodium (Colace) 200 mg BID PO Last administered on 03/06/18 09:08; Admin Dose 200 MG; Start 01/27/18 at 21:00 Enoxaparin Sodium (Lovenox) 40 mg DAILY SC Last administered on 03/06/18 09:08; Admin Dose 40 MG; Start 01/28/18 at 09:00 Sodium Hypochlorite (Dakin'S (Dilute 40)) 1 applic DAILY IRR Last administered on 03/06/18 09:16; Admin Dose 1 APPLIC; Start 01/27/18 at 18:30 Collagenase (Santyl) 1 applic DAILY TOP Last administered on 03/06/18 09:07; Admin Dose 1 APPLIC; Start 01/27/18 at 17:30 Hydrocortisone (Hydrocortisone 1% Cr) 1 applic BID TOP Last administered on 03/06/18 09:17; Admin Dose 1 APPLIC; Start 01/27/18 at 21:19 Collagenase (Santyl) 1 applic DAILY TOP Last administered on 03/06/18 09:07; Admin Dose 1 APPLIC; Start 02/04/18 at 09:00 Nitroglycerin (Nitroglycerin (Sl Tab) 0.4 Mg) 1 tab Q5M PRN SL ANGINA; Start 02/05/18 at 07:00 Morphine Sulfate (morphine) 6 mg Q4H PRN PO SEVERE PAIN LEVEL 7-10 Last administered on 03/05/18 08:57; Admin Dose 6 MG; Start 02/11/18 at 20:00 Diphenhydramine HCl (Benadryl) 25 mg Q6H PRN IV itching Last administered on 02/20/18at 09:57; Admin Dose 25 MG; Start 02/19/18 at 14:00 Vancomycin HCl (Vanco Iv Per Pharmacy) VANCOMYCIN PER PHARMACY PER PROTOCOL XX ; Start 03/04/18 at 16:30 Meropenem/Sodium Chloride 50 ml @ 100 mls/hr Q12 IVPB Last administered on 03/06/18at 09:08; Admin Dose 100 MLS/HR; Start 03/04/18 at 21:00 Vancomycin HCl 1.5 gm/Sodium Chloride 250 ml @ 83.333 mls/ hr Q24H IVPB ; Start 03/06/18 at 16:00 Miscellaneous Information (*Rx Drug Level Order Reminder*) VANCO TROUGH 03/07 @ 1,500 ONCE ONCE XX ; Start 03/07/18 at 15:00; Stop 03/07/18 at 15:01 DINA VICTOR NP Mar 06, 2018 15:44
[2018-03-06] MEDS: VANCOMYCIN 1.5 GM in SOD CHLORIDE 0.9% 250 ML IVPB SCH (16:02)
--- NOTE | 2018-03-06 16:52 | OPR ---
Date/Time of Note Date/Time of Note DATE: 03/06/18 TIME: 16:49 Operative Report Procedure Date: Mar 06, 2018 Preoperative Diagnosis Right thigh enlarging blister Postoperative Diagnosis Same Operation/Procedure Performed Incision and drainage of right thigh blister Surgeon Doc Hoffman MD Sulf[employer] Plant Supervisor Martha Garcia NP Anesthesia Type: other (None, patient has no sensation lower extremity) Estimated Blood Loss: minimal Transfusion none Specimen None Grafts/Implants none Tubes/Drains Non-adherent dressing applied on top Complications none Pt Condition Post Procedure: stable Disposition: other (In his own room) Indications Enlarging blister right thigh. Risks, benefits, alternatives as usual and customary explained to patient and he is agreeable to proceed Procedure Description Patient is placed supine on his own bed. All pressure points were well-padded. Timeout is performed. Area is prepped and draped sterilely. Using scalpel incision was made into the blister and both serous and bloody fluid are removed. Pressure is applied to the site. Dressing is applied. Skin left on top to act as barrier. Patient tolerated procedure well. DOC HOFFMAN MD Mar 06, 2018 16:52
--- NOTE | 2018-03-06 17:12 | NUR ---
WOUND VAC DRESSING CHANGE: Dressing changed by Dr. Courtney, wound vac re-applied. Dressing intact, set to 125 mmHg low continuous suction with good patient tolerance.
--- NOTE | 2018-03-06 18:02 | NUR ---
rn notes patient is alert and oriented X4, verbally responsive and able to make needs known, complains of pain and medicated as ordered and effective. all due medicine given and all needs attended to. turned and repositioned as scheduled and kept clean and dry. wound dressing dry and intact. wound vac dressing changed by . S/P I&D right thigh blister. call light placed within reach and fall precautions observed well. remains afebrile. will continue to monitor.
[2018-03-06 19:50] VITALS: BP 131/71; PULSE 66; RESP 18
[2018-03-06] MEDS: ZONISAMIDE 100 MG CAP PO SCH (20:13)
[2018-03-06] MEDS: RISPERIDONE 1 MG TAB PO SCH (20:15)
[2018-03-07 02:12] VITALS: BP 107/59; PULSE 75; RESP 17
[2018-03-07] MEDS: ARTIFICIAL TEARS 15 ML OPH BOTH EYES SCH ×3 (06:55→21:43)
[2018-03-07] MEDS: HYDROCODONE/APAP (5/325) TAB PO PRN ×2 (06:55→16:35)
[2018-03-07 08:00] VITALS: BP 105/65; PULSE 80; RESP 17
--- NOTE | 2018-03-07 08:22 | NUR ---
1915 Pt received aaox4 and able to make needs known. No s/s of distress noted. Pt oriented to retail shift leader nurse and [facility] safety protocol including hourly rounding and an active bed alarm. Pt verbalized understanding, no complaints/requests at this time. approx. 2100 Pt medicated for pain of foot as ordered. All scheduled medications administered w/o difficulty whole with water. Wound Vac running appropriate to Right heel. 0000 Pt comfortable in bed watching TV. Pt denies needs at this time, nursing will continue to monitor. 0200 Pt denies needs at this time. Pt turned q2 hours by bending machine operator and rn to prevent further skin integrity breakdown. 0700 Pt medicated for pain/discomfort of the sacral area, dressing changed. Vitals stable. Pt had no significant changes throughout the shift. Nursing will continue to monitor and endorse to morning shift to ensure continuity of care.
[2018-03-07] MEDS: SODIUM HYPOCHLORITE (1/40) 1 APPLIC BTL IRR SCH (09:00)
[2018-03-07] MEDS: NYSTATIN 15 GM POWDER BTL TOP SCH ×3 (09:00→21:43)
[2018-03-07] MEDS: SILVER SULFADIAZINE 1% 25 GM CR TOP SCH (09:00)
[2018-03-07] MEDS: HYDROCORTISONE 1% 28 GM CR TOP SCH ×2 (09:00→21:00)
[2018-03-07] MEDS: COLLAGENASE 5 GM (UD JAR) TOP SCH ×2 (09:00)
[2018-03-07] MEDS: VITAMIN A & D 5 GM OINT PACKET TOP SCH ×3 (09:00→21:43)
[2018-03-07] MEDS: BALSAM PERU/CASTOR OIL 60 GM TUBE TOP SCH (09:00)
[2018-03-07] MEDS: MEROPENEM 1 GM/50ML(PMX) 50 ML IVPB SCH (09:05)
[2018-03-07] MEDS: DOCUSATE SODIUM 100 MG CAP PO SCH ×2 (09:06→21:44)
[2018-03-07] MEDS: MAGNESIUM OXIDE 400 MG TAB PO SCH ×2 (09:07→21:45)
[2018-03-07] MEDS: FAMOTIDINE 20 MG TAB PO SCH ×2 (09:07→21:44)
[2018-03-07] MEDS: DULOXETINE 30 MG CAP DR PO SCH (09:07)
[2018-03-07] MEDS: FOLIC ACID 1 MG TAB PO SCH (09:07)
[2018-03-07] MEDS: GABAPENTIN 100 MG CAP PO SCH ×2 (09:07→21:44)
[2018-03-07] MEDS: PYRIDOXINE 50 MG TAB PO SCH (09:07)
[2018-03-07] MEDS: ALLOPURINOL 100 MG TAB PO SCH (09:07)
[2018-03-07] MEDS: BACLOFEN 10 MG TAB PO SCH ×3 (09:07→21:44)
[2018-03-07] MEDS: ENOXAPARIN 40 MG/0.4 ML SYG SC SCH (09:11)
[2018-03-07] MEDS: morphine LIQ (10 MG/5 ML) CUP PO PRN ×2 (12:15→21:45)
--- NOTE | 2018-03-07 12:23 | PN ---
Date/Time of Note Date/Time of Note DATE: 03/07/18 TIME: 12:22 Assessment/Plan VTE Prophylaxis Risk score (from Nsg)>0 risk: 6 SCD applied (from Nsg): Yes Pharmacological prophylaxis: LMWH Lines/Catheters IV Catheter Type (from Nrsg): Saline Lock Urinary Cath still in place: Yes Reason Cath still needed: skin wounds contaminated by urine Assessment/Plan Hospital Course SUBJECTIVE: No acute overnight episodes. OBJECTIVE: Vital signs-see below PHYSICAL EXAM: Constitutional: Bedbound male, not in acute distress. Psych: nl mood/affect, no complaints Head: atraumatic, normocephalic Eyes: nl conjunctiva, nl sclera ENMT: mucosa pink and moist, nl external ears & nose Neck: non-tender, supple Respiratory: clear to auscultation, normal air movement Cardiovascular: nl pulses, regular rate and rhythm Gastrointestinal: non-tender, soft, bowel sounds active in all 4 quadrants. Musculoskeletal/extremities: Paraplegic. Normal pulses,no cyanosis, no edema. Neurological: Alert oriented 3,nl speech, nl strength Skin: Bilateral heel with ulcers, covered with dressing. No oozing noted on dressing. Nl turgor ASSESSMENT/PLAN: Very unfortunate 57-year-old male with a history of paraplegia secondary to spinal cord syndrome 6 months ago, who also resides in a custodial, presented to the emergency room with worsening bilateral heel ulcers with foul-smelling drainage.... 1. Bilateral heel Decub ulcers without evidence of OM -s/p excisional debridement of bilateral heel decubitus wounds 01/26=>.Wound cultures: Enterobacter cloacae -Left heel resolved -ulcers progressed on Rt heel => Repeat Bedside debridement and application of wound vac 03/04/18=>WC growing enterococcus. -Antibiotic management per ID=> repeat pro-calcitonin normal. -Wound care per podiatry 2. Paraplegia secondary to spinal disorder and back surgery 6 months ago -Exact nature of disorder and surgery unclear -Continue baclofen 3. Depression -Continue home Cymbalta 4. Hypertension -Continue Coreg 5. Debility secondary to #2. -Patient resides in a custodial. 6. Chronic anemia with mild iron deficiency. -Stable H&H after 1 unit transfusion. -Continue oral iron replacement. 7. Unstageable pressure ulcers, sacral coccyx -S/o bedside debridement 02/13/18 -Continue wound care Prophylaxis:Lovenox/Pepcid Diet: Regular CODE STATUS: Full code Disposition: Continue current medical management. cont abx per podiatry /ID recs. pending custodial placement. Patient was seen in collaboration with Cont Hosp Indication/DC Plan: Pending placement Result Diagram: 03/05/18 0706 Exam/Review of Systems Vital Signs Vitals Vital Signs Date Temp Pulse Resp B/P (MAP) Pulse Ox O2 O2 Flow FiO2 Time Delivery Rate 03/07/18 98.2 80 17 105/65 97 Room Air 08:00 (78) Intake and Output 03/06/18 03/06/18 03/07/18 1414:59 22:59 06:59 IntakeIntake Total 650 ml 610 ml 500 ml OutputOutput Total 1400 ml 1300 ml BalanceBalance 650 ml -790 ml -800 ml Medications Medications Current Medications IV Flush (NS 3 ml) 3 ml PER PROTOCOL IV ; Start 01/25/18 at 15:30 Ondansetron HCl (Zofran Inj) 4 mg Q6H PRN IV NAUSEA AND/OR VOMITING; Start 01/25/18 at 15:30 Acetaminophen (Tylenol Tab) 650 mg Q6H PRN PO PAIN LEVEL 1-3 OR FEVER; Start 01/25/18 at 15:30 Acetaminophen/ Hydrocodone Bitart ([place] (5/325)) 1 tab Q6H PRN PO MODERATE PAIN LEVEL 4-6 Last administered on 03/07/18 06:55; Admin Dose 1 TAB; Start 01/25/18 at 15:30 Allopurinol (Zyloprim) 100 mg DAILY PO Last administered on 03/07/18 09:07; Admin Dose 100 MG; Start 01/26/18 at 09:00 Baclofen (Lioresal) 10 mg TID PO Last administered on 03/07/18 12:14; Admin Dose 10 MG; Start 01/25/18 at 21:00 Carvedilol (Coreg) 12.5 mg BID PO Last administered on 03/06/18 20:15; Admin Dose 12.5 MG; Start 01/25/18 at 21:00 Duloxetine HCl (Cymbalta) 30 mg DAILY PO Last administered on 03/07/18 09:07; Admin Dose 30 MG; Start 01/26/18 at 09:00 Famotidine (Pepcid) 20 mg BID PO Last administered on 03/07/18 09:07; Admin Dose 20 MG; Start 01/25/18 at 21:00 Folic Acid (Folic Acid) 1 mg DAILY PO Last administered on 03/07/18 09:07; Admin Dose 1 MG; Start 01/26/18 at 09:00 Gabapentin (Neurontin) 100 mg BID PO Last administered on 03/07/18 09:07; Admin Dose 100 MG; Start 01/25/18 at 21:00 Magnesium Oxide (Mag-Ox 400) 400 mg BID PO Last administered on 03/07/18 09:07; Admin Dose 400 MG; Start 01/25/18 at 21:00 Nystatin 1 applic BID TOP Last administered on 03/07/18 10:34; Admin Dose 1 APPLIC; Start 01/25/18 at 21:00 Pyridoxine HCl (Vitamin B6) 50 mg DAILY PO Last administered on 03/07/18 09:07; Admin Dose 50 MG; Start 01/26/18 at 09:00 Risperidone (Risperdal) 1 mg QHS PO Last administered on 03/06/18 20:15; Admin Dose 1 MG; Start 01/25/18 at 21:00 Zonisamide (Zonegran) 300 mg QHS PO Last administered on 03/06/18 20:13; Admin Dose 300 MG; Start 01/25/18 at 21:00 Eye Lubricant (Artificial Tears Oph) 1 drop Q8 BOTH EYES Last administered on 03/07/18 06:55; Admin Dose 1 DROP; Start 01/25/18 at 22:00 Miscellaneous Information (Pending [facility] Order For Wound Care) This patient woody... PRN PRN XX wound; Start 01/25/18 at 16:30 Vitamin A/Vitamin D (Vitamin A & D Oint) 1 applic BID TOP Last administered on 03/07/18 10:25; Admin Dose 1 APPLIC; Start 01/26/18 at 21:00 Docusate Sodium (Colace) 200 mg BID PO Last administered on 03/07/18 09:06; Admin Dose 200 MG; Start 01/27/18 at 21:00 Enoxaparin Sodium (Lovenox) 40 mg DAILY SC Last administered on 03/07/18 09:11; Admin Dose 40 MG; Start 01/28/18 at 09:00 Sodium Hypochlorite (Dakin'S (Dilute )) 1 applic DAILY IRR Last administered on 03/06/18 09:16; Admin Dose 1 APPLIC; Start 01/27/18 at 18:30 Collagenase (Santyl) 1 applic DAILY TOP Last administered on 03/06/18 09:07; Admin Dose 1 APPLIC; Start 01/27/18 at 17:30 Hydrocortisone (Hydrocortisone 1% Cr) 1 applic BID TOP Last administered on 09:17; Admin Dose 1 APPLIC; Start 01/27/18 at 21:19 Collagenase (Santyl) 1 applic DAILY TOP Last administered on 03/06/18 09:07; Admin Dose 1 APPLIC; Start 02/04/18 at 09:00 Nitroglycerin (Nitroglycerin (Sl Tab) 0.4 Mg) 1 tab Q5M PRN SL ANGINA; Start 02/05/18 at 07:00 Morphine Sulfate (morphine) 6 mg Q4H PRN PO SEVERE PAIN LEVEL 7-10 Last administered on 03/07/18 12:15; Admin Dose 6 MG; Start 02/11/18 at 20:00 Diphenhydramine HCl (Benadryl) 25 mg Q6H PRN IV itching Last administered on 02/20/18at 09:57; Admin Dose 25 MG; Start 02/19/18 at 14:00 Vancomycin HCl (Vanco Iv Per Pharmacy) VANCOMYCIN PER PHARMACY PER PROTOCOL XX ; Start 03/04/18 at 16:30 Meropenem/Sodium Chloride 50 ml @ 100 mls/hr Q12 IVPB Last administered on 03/07/18 09:05; Admin Dose 100 MLS/HR; Start 03/04/18 at 21:00 Vancomycin HCl 1.5 gm/Sodium Chloride 250 ml @ 83.333 mls/ hr Q24H IVPB Last administered on 03/06/18 16:02; Admin Dose 83.333 MLS/HR; Start 03/06/18 at 16:00 Miscellaneous Information (*Rx Drug Level Order Reminder*) VANCO TROUGH 03/07 @ 1,500 ONCE ONCE XX ; Start 03/07/18 at 15:00; Stop 03/07/18 at 15:01 Silver Sulfadiazine (Thermazene 1% 25 Gm) 1 applic DAILY TOP ; Start 03/07/18 at 09:00 LIVIA ADAME NP Mar 07, 2018 12:23
--- NOTE | 2018-03-07 14:03 | NUR ---
Nutrition Notes Wounds: Rec add daily MVI and Vit C; zinc x 10 days. Will continue to offer Gregg. Thank you!
[2018-03-07 14:05] VITALS: BP 109/64; PULSE 67; RESP 17
[2018-03-07] MEDS: VANCOMYCIN 1.5 GM in SOD CHLORIDE 0.9% 250 ML IVPB SCH (16:28)
--- NOTE | 2018-03-07 17:06 | NUR ---
VANCO PER RX PROTOCOL: DAY #4 S/O: AFEB VANCO TR = 16. A/P: CHANGE VANCO TO 1.25GM Q 24HR. TR LEVEL WHEN APPROPRIATE TO CHECK VANCO CLEARANCE. SCR/BUN IN AM TO CHECK RENAL FUNCT. WILL CONTINUE TO FOLLOW.
--- NOTE | 2018-03-07 18:11 | PN ---
Date/Time of Note Date/Time of Note DATE: 03/07/18 TIME: 18:08 Assessment/Plan Lines/Catheters IV Catheter Type (from [facility]): Saline Lock Benavidez in Place (from [facility]): Yes Assessment/Plan Chief Complaint/Hosp Course 1. Stage 3 necrotic wound: Noted with stool contamination s/p repeat excisional debridement 02/20; status post I&D&D of right thigh blister -cont local care> Santyl to sacrum > consider follow ups at wound care clinic near where he will be discharged -Silver ointment to right thigh blister (S/P I&D) -frequent turning and off-loading -low air loss mattress -vitamin c -short term zinc -optimize nutrition -skin protection against devices 2. Bilateral lower extremity ulcers: with wound vac -As above -Per podiatry 3. Hypochromic microcytic anemia: -Monitor and transfuse as needed 4. Depression: -Psychiatric optimization 5. Paraplegia -Supportive 6. Hypertension -nutrition and medication optimization Thank you. Patient seen and examined in collaboration with Dr. Brian Angulo. Subjective 24 Hr Interval Summary Feels well. No acute events. Still pending placement. No fevers, chills, sob, congested cough, cp, palpitations, woody, dizziness, nausea, vomiting, diarrhea, dysuria, excessive wound drainage or odor. Exam/Review of Systems Vital Signs Vitals Vital Signs Date Temp Pulse Resp B/P (MAP) Pulse Ox O2 O2 Flow FiO2 Time Delivery Rate 03/07/18 98.0 67 17 109/64 98 Room Air 14:05 (79) Intake and Output 03/06/18 03/06/18 03/07/18 1515:00 23:00 07:00 IntakeIntake Total 650 ml 610 ml 500 ml OutputOutput Total 1400 ml 1300 ml BalanceBalance 650 ml -790 ml -800 ml Exam Free Text/Dictation Constitutional: alert, oriented Psych: nl mood/affect, anxiety (Minimal) Head: normocephalic, atraumatic Eyes: nl conjunctiva, EOMI, nl sclera ENMT: nl external ears & nose, nl lips & teeth, mucosa pink and moist Neck: supple, non-tender Respiratory: normal air movement; No congested cough Cardiovascular: regular rate and rhythm; No edema Gastrointestinal: soft, non-tender; No distended Musculoskeletal: nl extremities to inspection; No nl gait and stance Extremities: normal pulses; No edema Neurological: nl mental status, nl speech Skin: nl turgor, Sacral wound: no periwound erythema, no drainage, min slough; wound vac to lower leg; right thigh skin blister (status post I&D-flat, no drainage) Results Result Diagram: 03/05/18 0706 FERNANDO DÍAZ NP Mar 07, 2018 18:11
--- NOTE | 2018-03-07 18:56 | NUR ---
RN NOTE Patient resting in bed. Verbalized no concerns at this time. No SOB or acute distress noted. Call light within reach. MD aware of patient status. Will continue to monitor until end of shift and endorse report, pending input/output, pendsing wound care and dressing change, IV intake and pending orders to incoming RN for continuity of care.
--- NOTE | 2018-03-07 19:24 | CONS ---
Date/Time of Note Date/Time of Note DATE: 03/07/18 TIME: 19:22 Assessment/Plan Assessment/Plan Hospital Course 1355 Patient is alert looks comfortable no fevers overnight Antimicrobials: Vancomycin meropenem Microbiology: Right heel wound culture grew enterococcus and Enterobacter cloacae, sacral wound culture growing enterococcus, strep, staph Physical examination: Well-nourished well-developed middle-aged man who is awake in no distress. Head atraumatic normocephalic sclera nonicteric vehicle mucosa dry neck is supple chest rise symmetrical breath sounds diminished bases heart S1-S2. Abdomen soft bowel sounds present. Extremities without cyanosis. Assessment: 1. Right foot ulceration status post debridement down to muscle 2. Stage III sacral wound 3. Paraplegia 4. Hypertension 5. Diabetes Plan: Patient remains stable, change Merrem to Levaquin, f/u surgical and podiatry rec-s. Result Diagram: 03/05/18 0706 Results 24hrs Laboratory Tests Test 03/07/18 14:53 Vancomycin Level Trough 16.0 Consultation Date/Type/Reason Admit Date/Time Jan 26, 2018 at 08:29 Initial Consult Date 02/12/18 Type of Consult id Requesting Provider: LIVIA ADAME V. FUNDRAISING DIRECTOR Exam/Review of Systems Vital Signs Vitals Vital Signs Date Temp Pulse Resp B/P (MAP) Pulse Ox O2 O2 Flow FiO2 Time Delivery Rate 03/07/18 98.0 67 17 109/64 98 Room Air 14:05 (79) Intake and Output 03/06/18 03/06/18 03/07/18 1515:00 23:00 07:00 IntakeIntake Total 650 ml 610 ml 500 ml OutputOutput Total 1400 ml 1300 ml BalanceBalance 650 ml -790 ml -800 ml Medications Medications Current Medications IV Flush (NS 3 ml) 3 ml PER PROTOCOL IV ; Start 01/25/18 at 15:30 Ondansetron HCl (Zofran Inj) 4 mg Q6H PRN IV NAUSEA AND/OR VOMITING; Start 01/25/18 at 15:30 Acetaminophen (Tylenol Tab) 650 mg Q6H PRN PO PAIN LEVEL 1-3 OR FEVER; Start 01/25/18 at 15:30 Acetaminophen/ Hydrocodone Bitart ([place] (5/325)) 1 tab Q6H PRN PO MODERATE PAIN LEVEL 4-6 Last administered on 03/07/18 16:35; Admin Dose 1 TAB; Start 01/25/18 at 15:30 Allopurinol (Zyloprim) 100 mg DAILY PO Last administered on 03/07/18 09:07; Admin Dose 100 MG; Start 01/26/18 at 09:00 Baclofen (Lioresal) 10 mg TID PO Last administered on 03/07/18 12:14; Admin Dose 10 MG; Start 01/25/18 at 21:00 Carvedilol (Coreg) 12.5 mg BID PO Last administered on 03/06/18 20:15; Admin Dose 12.5 MG; Start 01/25/18 at 21:00 Duloxetine HCl (Cymbalta) 30 mg DAILY PO Last administered on 03/07/18 09:07; Admin Dose 30 MG; Start 01/26/18 at 09:00 Famotidine (Pepcid) 20 mg BID PO Last administered on 03/07/18 09:07; Admin Dose 20 MG; Start 01/25/18 at 21:00 Folic Acid (Folic Acid) 1 mg DAILY PO Last administered on 03/07/18 09:07; Admin Dose 1 MG; Start 01/26/18 at 09:00 Gabapentin (Neurontin) 100 mg BID PO Last administered on 03/07/18 09:07; Admin Dose 100 MG; Start 01/25/18 at 21:00 Magnesium Oxide (Mag-Ox 400) 400 mg BID PO Last administered on 03/07/18 09:07; Admin Dose 400 MG; Start 01/25/18 at 21:00 Nystatin 1 applic BID TOP Last administered on 03/07/18 10:34; Admin Dose 1 APPLIC; Start 01/25/18 at 21:00 Pyridoxine HCl (Vitamin B6) 50 mg DAILY PO Last administered on 03/07/18 09:07; Admin Dose 50 MG; Start 01/26/18 at 09:00 Risperidone (Risperdal) 1 mg QHS PO Last administered on 03/06/18 20:15; Admin Dose 1 MG; Start 01/25/18 at 21:00 Zonisamide (Zonegran) 300 mg QHS PO Last administered on 03/06/18 20:13; Admin Dose 300 MG; Start 01/25/18 at 21:00 Eye Lubricant (Artificial Tears Oph) 1 drop Q8 BOTH EYES Last administered on 03/07/18 16:19; Admin Dose 1 DROP; Start 01/25/18 at 22:00 Miscellaneous Information (Pending Santyl Order For Wound Care) This patient woody... PRN PRN XX wound; Start 01/25/18 at 16:30 Vitamin A/Vitamin D (Vitamin A & D Oint) 1 applic BID TOP Last administered on 03/07/18 10:25; Admin Dose 1 APPLIC; Start 01/26/18 at 21:00 Docusate Sodium (Colace) 200 mg BID PO Last administered on 03/07/18 09:06; Admin Dose 200 MG; Start 01/27/18 at 21:00 Enoxaparin Sodium (Lovenox) 40 mg DAILY SC Last administered on 03/07/18 09:11; Admin Dose 40 MG; Start 01/28/18 at 09:00 Sodium Hypochlorite (Dakin'S (Dilute 1/40)) 1 applic DAILY IRR Last administered on 03/06/18 09:16; Admin Dose 1 APPLIC; Start 01/27/18 at 18:30 Collagenase (Santyl) 1 applic DAILY TOP Last administered on 03/06/18 09:07; Admin Dose 1 APPLIC; Start 01/27/18 at 17:30 Hydrocortisone (Hydrocortisone 1% Cr) 1 applic BID TOP Last administered on 03/06/18 09:17; Admin Dose 1 APPLIC; Start 01/27/18 at 21:19 Collagenase (Santyl) 1 applic DAILY TOP Last administered on 03/06/18 09:07; Admin Dose 1 APPLIC; Start 02/04/18 at 09:00 Nitroglycerin (Nitroglycerin (Sl Tab) 0.4 Mg) 1 tab Q5M PRN SL ANGINA; Start 02/05/18 at 07:00 Morphine Sulfate (morphine) 6 mg Q4H PRN PO SEVERE PAIN LEVEL 7-10 Last administered on 03/07/18 12:15; Admin Dose 6 MG; Start 02/11/18 at 20:00 Diphenhydramine HCl (Benadryl) 25 mg Q6H PRN IV itching Last administered on 02/20/18at 09:57; Admin Dose 25 MG; Start 02/19/18 at 14:00 Vancomycin HCl (Vanco Iv Per Pharmacy) VANCOMYCIN PER PHARMACY PER PROTOCOL XX ; Start 03/04/18 at 16:30 Meropenem/Sodium Chloride 50 ml @ 100 mls/hr Q12 IVPB Last administered on 03/07/18at 09:05; Admin Dose 100 MLS/HR; Start 03/04/18 at 21:00 Silver Sulfadiazine (Thermazene 1% 25 Gm) 1 applic DAILY TOP ; Start 03/07/18 at 09:00 Vancomycin HCl 1.25 gm/Sodium Chloride 250 ml @ 83.333 mls/ hr Q24H IVPB ; Sta rt 03/08/18 at 16:00 DINA VICTOR NP Mar 07, 2018 19:23
[2018-03-07 20:00] VITALS: BP 97/52; PULSE 73; RESP 18
[2018-03-07] MEDS: ZONISAMIDE 100 MG CAP PO SCH (21:43)
[2018-03-07] MEDS: RISPERIDONE 1 MG TAB PO SCH (21:44)
[2018-03-08 02:00] VITALS: BP 103/58; PULSE 83; RESP 18
[2018-03-08] MEDS: morphine LIQ (10 MG/5 ML) CUP PO PRN (03:41)
[2018-03-08] MEDS: HYDROCODONE/APAP (5/325) TAB PO PRN ×2 (05:13→20:04)
[2018-03-08] MEDS: ARTIFICIAL TEARS 15 ML OPH BOTH EYES SCH ×3 (05:13→22:06)
[2018-03-08] MEDS: LEVOFLOXACIN 500 MG TAB PO SCH (05:13)
--- NOTE | 2018-03-08 05:24 | NUR ---
No acute changes during shift. Pt safe and free from injury. Pt repositioned and checked for incontinence Q2H. Heels elevated off of bed. Wound care done. Pt pain monitored and controlled throughout shift. No signs of discomfort or distress. No SOB. Pt currently sleeping comfortably in bed. Bed alarm on, call light within reach. Will continue to monitor.
[2018-03-08 08:49] VITALS: BP 98/57; PULSE 77; RESP 17
[2018-03-08] MEDS: BALSAM PERU/CASTOR OIL 60 GM TUBE TOP SCH (09:00)
[2018-03-08] MEDS: HYDROCORTISONE 1% 28 GM CR TOP SCH ×2 (09:00→21:00)
[2018-03-08] MEDS: COLLAGENASE 5 GM (UD JAR) TOP SCH ×2 (09:00→10:52)
--- NOTE | 2018-03-08 09:30 | PN ---
Date/Time of Note Date/Time of Note DATE: 03/08/18 TIME: 09:21 Assessment/Plan VTE Prophylaxis Risk score (from Nsg)>0 risk: 5 SCD applied (from Ns): No SCD contraindicated: other (WOUNDS) Pharmacological prophylaxis: LMWH Lines/Catheters IV Catheter Type (from Nrs): Saline Lock Urinary Cath still in place: Yes Reason Cath still needed: skin wounds contaminated by urine Assessment/Plan Hospital Course SUBJECTIVE: No acute overnight episodes. OBJECTIVE: Vital signs-see below PHYSICAL EXAM: Constitutional: Bedbound male, not in acute distress. Psych: nl mood/affect, no complaints Head: atraumatic, normocephalic Eyes: nl conjunctiva, nl sclera ENMT: mucosa pink and moist, nl external ears & nose Neck: non-tender, supple Respiratory: clear to auscultation, normal air movement Cardiovascular: nl pulses, regular rate and rhythm Gastrointestinal: non-tender, soft, bowel sounds active in all 4 quadrants. Musculoskeletal/extremities: Paraplegic. Normal pulses,no cyanosis, no edema. Neurological: Alert oriented 3,nl speech, nl strength Skin: Bilateral heel with ulcers, covered with dressing. No oozing noted on dressing. Nl turgor ASSESSMENT/PLAN: Very unfortunate 57-year-old male with a history of paraplegia secondary to spinal cord syndrome 6 months ago, who also resides in a alf, presented to the emergency room with worsening bilateral heel ulcers with foul-smelling drainage.... 1. Bilateral heel Decub ulcers without evidence of OM -s/p excisional debridement of bilateral heel decubitus wounds 01/26=>.Wound cultures: Enterobacter cloacae -Left heel resolved -ulcers progressed on Rt heel => Repeat Bedside debridement and application of wound vac 03/04/18=>WC: VANCO RESISTANT enterococcus 3+, coag negative staph 1+, alpha hemolytic strep 1+. -Antibiotic management per ID=>on Levaquin and Vancomycin?=> Consider tailoring antibiotic based on sensitivity reported=>Left message. -Wound care 2. Paraplegia secondary to spinal disorder and back surgery 6 months ago -Exact nature of disorder and surgery unclear -Continue baclofen 3. Depression -Continue home Cymbalta 4. Hypertension -Continue Coreg 5. Debility secondary to #2. -Patient resides in a alf. 6. Chronic anemia with mild iron deficiency. -Stable H&H after 1 unit transfusion. -Continue oral iron replacement. 7. Unstageable pressure ulcers, sacral coccyx -S/o bedside debridement 02/13/18 -Continue wound care Prophylaxis:Lovenox/Pepcid Diet: Regular CODE STATUS: Full code Disposition: Continue current medical management. cont abx per podiatry /ID recs. pending alf placement. Patient was seen in collaboration with Cont Hosp Indication/DC Plan: PLACEMENT Result Diagram: 03/08/18 0511 Results 24hrs Laboratory Tests Test 03/07/18 14:53 03/08/18 05:11 Vancomycin Level Trough 16.0 Blood Urea Nitrogen 27 H Creatinine 0.74 Exam/Review of Systems Vital Signs Vitals Vital Signs Date Temp Pulse Resp B/P (MAP) Pulse Ox O2 O2 Flow FiO2 Time Delivery Rate 03/08/18 98.1 77 17 98/57 (71) 99 Room Air 08:49 Intake and Output 03/07/18 03/07/18 03/08/18 1515:00 23:00 07:00 IntakeIntake Total 750 ml 250 ml OutputOutput Total 900 ml BalanceBalance -150 ml 250 ml Medications Medications Current Medications IV Flush (NS 3 ml) 3 ml PER PROTOCOL IV ; Start 01/25/18 at 15:30 Ondansetron HCl (Zofran Inj) 4 mg Q6H PRN IV NAUSEA AND/OR VOMITING; Start 01/25/18 at 15:30 Acetaminophen (Tylenol Tab) 650 mg Q6H PRN PO PAIN LEVEL 1-3 OR FEVER; Start 01/25/18 at 15:30 Acetaminophen/ Hydrocodone Bitart ([place] (5/325)) 1 tab Q6H PRN PO MODERATE PAIN LEVEL 4-6 Last administered on 03/08/18at 05:13; Admin Dose 1 TAB; Start 01/25/18 at 15:30 Allopurinol (Zyloprim) 100 mg DAILY PO Last administered on 03/07/18at 09:07; Admin Dose 100 MG; Start 01/26/18 at 09:00 Baclofen (Lioresal) 10 mg TID PO Last administered on 03/07/18at 21:44; Admin Dose 10 MG; Start 01/25/18 at 21:00 Carvedilol (Coreg) 12.5 mg BID PO Last administered on 03/06/18 20:15; Admin Dose 12.5 MG; Start 01/25/18 at 21:00 Duloxetine HCl (Cymbalta) 30 mg DAILY PO Last administered on 03/07/18 09:07; Admin Dose 30 MG; Start 01/26/18 at 09:00 Famotidine (Pepcid) 20 mg BID PO Last administered on 03/07/18 21:44; Admin Dose 20 MG; Start 01/25/18 at 21:00 Folic Acid (Folic Acid) 1 mg DAILY PO Last administered on 03/07/18 09:07; Admin Dose 1 MG; Start 01/26/18 at 09:00 Gabapentin (Neurontin) 100 mg BID PO Last administered on 03/07/18 21:44; Admin Dose 100 MG; Start 01/25/18 at 21:00 Magnesium Oxide (Mag-Ox 400) 400 mg BID PO Last administered on 03/07/18 21:45; Admin Dose 400 MG; Start 01/25/18 at 21:00 Nystatin 1 applic BID TOP Last administered on 03/07/18 21:43; Admin Dose 1 APPLIC; Start 01/25/18 at 21:00 Pyridoxine HCl (Vitamin B6) 50 mg DAILY PO Last administered on 03/07/18 09:07; Admin Dose 50 MG; Start 01/26/18 at 09:00 Risperidone (Risperdal) 1 mg QHS PO Last administered on 03/07/18 21:44; Admin Dose 1 MG; Start 01/25/18 at 21:00 Zonisamide (Zonegran) 300 mg QHS PO Last administered on 03/07/18 21:43; Admin Dose 300 MG; Start 01/25/18 at 21:00 Eye Lubricant (Artificial Tears Oph) 1 drop Q8 BOTH EYES Last administered on 03/08/18 05:13; Admin Dose 1 DROP; Start 01/25/18 at 22:00 [facility] This patient woody... PRN PRN XX wound; Start 01/25/18 at 16:30 Vitamin A/Vitamin D (Vitamin A & D Oint) 1 applic BID TOP Last administered on 03/07/18 21:43; Admin Dose 1 APPLIC; Start 01/26/18 at 21:00 Docusate Sodium (Colace) 200 mg BID PO Last administered on 03/07/18 21:44; Admin Dose 200 MG; Start 01/27/18 at 21:00 Enoxaparin Sodium (Lovenox) 40 mg DAILY SC Last administered on 03/07/18 09:11; Admin Dose 40 MG; Start 01/28/18 at 09:00 Sodium Hypochlorite (Dakin'S (Dilute )) 1 applic DAILY IRR Last administered on 03/06/18 09:16; Admin Dose 1 APPLIC; Start 01/27/18 at 18:30 Collagenase (Santyl) 1 applic DAILY TOP Last administered on 03/06/18 09:07; Admin Dose 1 APPLIC; Start 01/27/18 at 17:30 Hydrocortisone (Hydrocortisone 1% Cr) 1 applic BID TOP Last administered on 03/06/18 09:17; Admin Dose 1 APPLIC; Start 01/27/18 at 21:19 Collagenase (Santyl) 1 applic DAILY TOP Last administered on 03/06/18 09:07; Admin Dose 1 APPLIC; Start 02/04/18 at 09:00 Nitroglycerin (Nitroglycerin (Sl Tab) 0.4 Mg) 1 tab Q5M PRN SL ANGINA; Start 02/05/18 at 07:00 Morphine Sulfate (morphine) 6 mg Q4H PRN PO SEVERE PAIN LEVEL 7-10 Last admi nistered on 03/08/18 03:41; Admin Dose 6 MG; Start 02/11/18 at 20:00 Diphenhydramine HCl (Benadryl) 25 mg Q6H PRN IV itching Last administered on 02/20/18at 09:57; Admin Dose 25 MG; Start 02/19/18 at 14:00 Vancomycin HCl (Vanco Iv Per Pharmacy) VANCOMYCIN PER PHARMACY PER PROTOCOL XX ; Start 03/04/18 at 16:30 Silver Sulfadiazine (Thermazene 1% 25 Gm) 1 applic DAILY TOP ; Start 03/07/18 at 09:00 Vancomycin HCl 1.25 gm/Sodium Chloride 250 ml @ 83.333 mls/ hr Q24H IVPB ; Start 03/08/18 at 16:00 Levofloxacin (Levaquin) 500 mg DAILY@06 PO Last administered on 1/6/19at 05:13; Admin Dose 500 MG; Start 03/08/18 at 06:00 LIVIA ADAME NP Mar 08, 2018 09:30
[2018-03-08] MEDS: SODIUM HYPOCHLORITE (1/40) 1 APPLIC BTL IRR SCH (10:45)
[2018-03-08] MEDS: DOCUSATE SODIUM 100 MG CAP PO SCH ×2 (10:45→20:01)
[2018-03-08] MEDS: DULOXETINE 30 MG CAP DR PO SCH (10:46)
[2018-03-08] MEDS: FOLIC ACID 1 MG TAB PO SCH (10:46)
[2018-03-08] MEDS: GABAPENTIN 100 MG CAP PO SCH ×2 (10:47→20:03)
[2018-03-08] MEDS: PYRIDOXINE 50 MG TAB PO SCH (10:47)
[2018-03-08] MEDS: MAGNESIUM OXIDE 400 MG TAB PO SCH ×2 (10:47→20:03)
[2018-03-08] MEDS: FAMOTIDINE 20 MG TAB PO SCH ×2 (10:47→20:03)
[2018-03-08] MEDS: ALLOPURINOL 100 MG TAB PO SCH (10:47)
[2018-03-08] MEDS: BACLOFEN 10 MG TAB PO SCH ×3 (10:47→20:03)
[2018-03-08] MEDS: ENOXAPARIN 40 MG/0.4 ML SYG SC SCH (10:48)
[2018-03-08] MEDS: NYSTATIN 15 GM POWDER BTL TOP SCH ×2 (10:49→21:00)
[2018-03-08] MEDS: SILVER SULFADIAZINE 1% 25 GM CR TOP SCH (10:52)
[2018-03-08] MEDS: VITAMIN A & D 5 GM OINT PACKET TOP SCH ×2 (10:53→21:00)
--- NOTE | 2018-03-08 12:28 | CONS ---
Date/Time of Note Date/Time of Note DATE: 03/08/18 TIME: 12:20 Assessment/Plan Assessment/Plan Result Diagram: 03/08/18 0511 Results 24hrs Laboratory Tests Test 03/07/18 14:53 03/08/18 05:11 Vancomycin Level Trough 16.0 Blood Urea Nitrogen 27 H Creatinine 0.74 Consultation Date/Type/Reason Admit Date/Time Jan 26, 2018 at 08:29 Initial Consult Date SUBJECTIVE: Patient is awake, alert looks comfortable. Denies pain, fevers.VAC was changed today. VS: stable T: 98.1 LABS: reviewed. Antimicrobials: Vancomycin and Levaquin, Diflucan Microbiology: Right heel wound culture grew enterococcus and Enterobacter cloacae, sacral wound culture growing enterococcus, strep, staph Sacral wound culture: GRAM STAIN Final EPITHELIAL CELLS 1+ GRAM POS COCCI IN CHAIN 1+ WOUND CULTURE Final Organism 1 VANCO RESISTANT ENTEROCOCCUS QUANTITY 3+ . MULTI DRUG RESISTANT ORGANISM Organism 2 COAGULASE NEGATIVE STAPH QUANTITY 1+ Organism 3 MARKOS ALBICANS QUANTITY 1+ Physical examination: GEN: Well-nourished well-developed middle-aged man who is awake in no distress. HENT: Head atraumatic normocephalic sclera nonicteric vehicle mucosa dry neck is supple Pulm: CTA, rise symmetrical breath sounds diminished bases CV:RRR, S1-S2. ABDOMEN: soft bowel sounds present. Extremities without cyanosis. Rt foot ulcer, currently with wound vac. Assessment: 1. Right foot ulceration status post debridement down to muscle 2. Stage III sacral wound 3. Paraplegia 4. Hypertension 5. Diabetes Plan: Patient remains stable. Will D/C Vanco. Add PO Ampicillin, continue Levaquin PO, and Diflucan. Podiatry recommendations. Requesting Provider: LIVIA ADAME V. PEA VINER MECHANIC Exam/Review of Systems Vital Signs Vitals Vital Signs Date Temp Pulse Resp B/P (MAP) Pulse Ox O2 O2 Flow FiO2 Time Delivery Rate 03/08/18 98.1 77 17 98/57 (71) 99 Room Air 08:49 Intake and Output 03/07/18 03/07/18 03/08/18 1515:00 23:00 07:00 IntakeIntake Total 750 ml 250 ml OutputOutput Total 900 ml BalanceBalance -150 ml 250 ml Medications Medications Current Medications IV Flush (NS 3 ml) 3 ml PER PROTOCOL IV ; Start 01/25/18 at 15:30 Ondansetron HCl (Zofran Inj) 4 mg Q6H PRN IV NAUSEA AND/OR VOMITING; Start 01/25/18 at 15:30 Acetaminophen (Tylenol Tab) 650 mg Q6H PRN PO PAIN LEVEL 1-3 OR FEVER; Start 01/25/18 at 15:30 Acetaminophen/ Hydrocodone Bitart ([place] (5/325)) 1 tab Q6H PRN PO MODERATE PAIN LEVEL 4-6 Last administered on 03/08/18 05:13; Admin Dose 1 TAB; Start 01/25/18 at 15:30 Allopurinol (Zyloprim) 100 mg DAILY PO Last administered on 03/08/18 10:47; Admin Dose 100 MG; Start 01/26/18 at 09:00 Baclofen (Lioresal) 10 mg TID PO Last administered on 03/08/18 10:47; Admin Dose 10 MG; Start 01/25/18 at 21:00 Carvedilol (Coreg) 12.5 mg BID PO Last administered on 03/06/18 20:15; Admin Dose 12.5 MG; Start 01/25/18 at 21:00 Duloxetine HCl (Cymbalta) 30 mg DAILY PO Last administered on 03/08/18 10:46; Admin Dose 30 MG; Start 01/26/18 at 09:00 Famotidine (Pepcid) 20 mg BID PO Last administered on 03/08/18 10:47; Admin Dose 20 MG; Start 01/25/18 at 21:00 Folic Acid (Folic Acid) 1 mg DAILY PO Last administered on 03/08/18 10:46; Admin Dose 1 MG; Start 01/26/18 at 09:00 Gabapentin (Neurontin) 100 mg BID PO Last administered on 03/08/18 10:47; Admin Dose 100 MG; Start 01/25/18 at 21:00 Magnesium Oxide (Mag-Ox 400) 400 mg BID PO Last administered on 03/08/18 10:47; Admin Dose 400 MG; Start 01/25/18 at 21:00 Nystatin 1 applic BID TOP Last administered on 03/08/18 10:49; Admin Dose 1 APPLIC; Start 01/25/18 at 21:00 Pyridoxine HCl (Vitamin B6) 50 mg DAILY PO Last administered on 03/08/18 10:47; Admin Dose 50 MG; Start 01/26/18 at 09:00 Risperidone (Risperdal) 1 mg QHS PO Last administered on 03/07/18 21:44; Admin Dose 1 MG; Start 01/25/18 at 21:00 Zonisamide (Zonegran) 300 mg QHS PO Last administered on 03/07/18 21:43; Admin Dose 300 MG; Start 01/25/18 at 21:00 Eye Lubricant (Artificial Tears Oph) 1 drop Q8 BOTH EYES Last administered on 03/08/18 05:13; Admin Dose 1 DROP; Start 01/25/18 at 22:00 Miscellaneous Information (Pending [facility] Order For Wound Care) This patient woody... PRN PRN XX wound; Start 01/25/18 at 16:30 Vitamin A/Vitamin D (Vitamin A & D Oint) 1 applic BID TOP Last administered on 03/08/18 10:53; Admin Dose 1 APPLIC; Start 01/26/18 at 21:00 Docusate Sodium (Colace) 200 mg BID PO Last administered on 03/08/18 10:45; Admin Dose 200 MG; Start 01/27/18 at 21:00 Enoxaparin Sodium (Lovenox) 40 mg DAILY SC Last administered on 03/08/18 10:48; Admin Dose 40 MG; Start 01/28/18 at 09:00 Sodium Hypochlorite (Dakin'S (Dilute 1/40)) 1 applic DAILY IRR Last administered on 03/08/18 10:45; Admin Dose 1 APPLIC; Start 01/27/18 at 18:30 Collagenase (Santyl) 1 applic DAILY TOP Last administered on 03/06/18 09:07; Admin Dose 1 APPLIC; Start 01/27/18 at 17:30 Hydrocortisone (Hydrocortisone 1% Cr) 1 applic BID TOP Last administered on 03/06/18 09:17; Admin Dose 1 APPLIC; Start 01/27/18 at 21:19 Collagenase (Santyl) 1 applic DAILY TOP Last administered on 03/08/18 10:52; Admin Dose 1 APPLIC; Start 02/04/18 at 09:00 Nitroglycerin (Nitroglycerin (Sl Tab) 0.4 Mg) 1 tab Q5M PRN SL ANGINA; Start 02/05/18 at 07:00 Morphine Sulfate (morphine) 6 mg Q4H PRN PO SEVERE PAIN LEVEL 7-10 Last administered on 03/08/18at 03:41; Admin Dose 6 MG; Start 02/11/18 at 20:00 Diphenhydramine HCl (Benadryl) 25 mg Q6H PRN IV itching Last administered on 02/20/18at 09:57; Admin Dose 25 MG; Start 02/19/18 at 14:00 Silver Sulfadiazine (Thermazene 1% 25 Gm) 1 applic DAILY TOP Last administered on 03/08/18at 10:52; Admin Dose 1 APPLIC; Start 03/07/18 at 09:00 Levofloxacin (Levaquin) 500 mg DAILY@06 PO Last administered on 03/08/18at 05:13; Admin Dose 500 MG; Start 03/08/18 at 06:00 Ampicillin (Ampicillin) 500 mg Q8 PO ; Start 03/08/18 at 14:00 Fluconazole (Diflucan) 100 mg DAILY PO ; Start 03/08/18 at 12:00 LITO CARMONA Mar 08, 2018 12:28
[2018-03-08] MEDS: FLUCONAZOLE 100 MG TAB PO SCH (13:50)
[2018-03-08] MEDS ORDERED: AMPICILLIN 500 MG CAP PO SCH (14:00)
[2018-03-08] MEDS: AMPICILLIN 500 MG CAP PO SCH ×2 (14:44→22:11)
[2018-03-08] MEDS ORDERED: VANCOMYCIN 1.25 GM in SOD CHLORIDE 0.9% 250 ML IVPB SCH (16:00)
[2018-03-08 16:52] VITALS: BP 128/84; PULSE 97; RESP 18
--- NOTE | 2018-03-08 19:00 | NUR ---
Patient on bed rest, alert and oriented. Turned every 2 hours. Vital signs stable. Wound dressing changed as ordered. Patient continue with PO antibiotics. Waiting for placement.
[2018-03-08] MEDS: ZONISAMIDE 100 MG CAP PO SCH (20:02)
[2018-03-08] MEDS: RISPERIDONE 1 MG TAB PO SCH (20:02)
[2018-03-08 20:05] VITALS: BP 117/73; PULSE 80; RESP 18
--- NOTE | 2018-03-08 23:28 | NUR ---
1914 Pt received aaox4 no s/s of distress. Respirations regular and even. Pt oriented to oncoming manufacturing shift supervisor nurse and [facility] safety protocol including hourly rounding and an active bedalarm. Pt verbalized understanding and denies needs at this time. 1944 Pt requests [place] for bilateral shoulder discomfort and pain rated 10/10. 1999 Pain medication administered as per dr order. Scheduled medications administered whole with water w/o difficulty. Pt educated on medications purpose, pt verbalized understanding. Pt refused nystatin powder, A&D, & hydrocortisone ointment. Pt states, "I don't need it." 2199 Left heel dressing changed as per dr orders. Right foot wound vac assessed & functioning appropriately. 2329 Pt resting comfortably watching TV in bed, denies needs at this time. Addendum: 03/09/18 at 0619 by JAZ PALMA RN 0200 Pt asleep. Nursing will continue to monitor. 0500 Bowel Movement, Sacral wound cleansed w/dakins, santyl applied, covered w/foam dressing. Pt medicated w/ norco for bilateral should pain 10/10. Linen changed, pt repositioned comfortably. 0530 PO antibiotics administered. 06 Pt relaxing in bed, denies further needs at this time. Pt had no significant changes throughout the shift, vitals stable. Nursing will continue to monitor and endorse to morning shift to ensure continuity of care.
--- NOTE | 2018-03-08 23:55 | PN ---
Date/Time of Note Date/Time of Note DATE: 03/08/18 TIME: 23:51 Assessment/Plan Lines/Catheters IV Catheter Type (from [facility]): Saline Lock Benavidez in Place (from [facility]): Yes Assessment/Plan Chief Complaint/Hosp Course 1. Stage 3 necrotic wound: Noted with stool contamination s/p repeat excisional debridement 02/20; status post I&D&D of right thigh blister -cont local care> Santyl to sacrum > consider follow ups at wound care clinic near where he will be discharged -Continue Silver ointment to right thigh blister (S/P I&D) -frequent turning and off-loading -low air loss mattress -vitamin c -short term zinc -optimize nutrition -skin protection against devices 2. Bilateral lower extremity ulcers: with wound vac -As above -Per podiatry 3. Hypochromic microcytic anemia: -Monitor and transfuse as needed 4. Depression: -Psychiatric optimization 5. Paraplegia -Supportive 6. Hypertension -nutrition and medication optimization Thank you. Patient seen and examined in collaboration with Dr. Brian Angulo. Subjective 24 Hr Interval Summary Antibiotic adjustment per ID. No acute events. No fevers, chills, sob, congested cough, cp, palpitations, woody, dizziness, nausea, vomiting, diarrhea, dysuria. Exam/Review of Systems Vital Signs Vitals Vital Signs Date Temp Pulse Resp B/P (MAP) Pulse Ox O2 O2 Flow FiO2 Time Delivery Rate 03/08/18 98.3 80 18 117/73 98 20:05 (88) 03/08/18 Room Air 16:52 Intake and Output 03/07/18 03/07/18 03/08/18 1515:00 23:00 07:00 IntakeIntake Total 750 ml 250 ml OutputOutput Total 900 ml BalanceBalance -150 ml 250 ml Exam Free Text/Dictation Constitutional: alert, oriented Psych: nl mood/affect, anxiety (Minimal) Head: normocephalic, atraumatic Eyes: nl conjunctiva, EOMI, nl sclera ENMT: nl external ears & nose, nl lips & teeth, mucosa pink and moist Neck: supple, non-tender Respiratory: normal air movement; No congested cough Cardiovascular: regular rate and rhythm; No edema Gastrointestinal: soft, non-tender; No distended Musculoskeletal: nl extremities to inspection; No nl gait and stance Extremities: normal pulses; No edema Neurological: nl mental status, nl speech Skin: nl turgor, Sacral wound: no periwound erythema, no drainage, min slough; wound vac to lower leg; right thigh skin blister (flat, no drainage, no erythema) Results Result Diagram: 03/08/18 0511 FERNANDO DÍAZ NP Mar 08, 2018 23:55
[2018-03-09 02:16] VITALS: BP 103/58; PULSE 63; RESP 18
[2018-03-09] MEDS: HYDROCODONE/APAP (5/325) TAB PO PRN ×3 (05:24→19:43)
[2018-03-09] MEDS: LEVOFLOXACIN 500 MG TAB PO SCH (05:24)
[2018-03-09] MEDS: ARTIFICIAL TEARS 15 ML OPH BOTH EYES SCH ×3 (05:24→21:19)
[2018-03-09] MEDS: AMPICILLIN 500 MG CAP PO SCH ×3 (05:26→21:19)
[2018-03-09 08:43] VITALS: BP 95/61; PULSE 85; RESP 17
[2018-03-09] MEDS: COLLAGENASE 5 GM (UD JAR) TOP SCH ×2 (08:56)
[2018-03-09] MEDS: BALSAM PERU/CASTOR OIL 60 GM TUBE TOP SCH (08:57)
[2018-03-09] MEDS: HYDROCORTISONE 1% 28 GM CR TOP SCH ×2 (09:00→21:00)
[2018-03-09] MEDS: SODIUM HYPOCHLORITE (1/40) 1 APPLIC BTL IRR SCH (09:00)
[2018-03-09] MEDS: BACLOFEN 10 MG TAB PO SCH ×3 (09:08→21:21)
[2018-03-09] MEDS: DULOXETINE 30 MG CAP DR PO SCH (09:08)
[2018-03-09] MEDS: FOLIC ACID 1 MG TAB PO SCH (09:08)
[2018-03-09] MEDS: DOCUSATE SODIUM 100 MG CAP PO SCH ×2 (09:08→21:19)
[2018-03-09] MEDS: GABAPENTIN 100 MG CAP PO SCH ×2 (09:08→21:19)
[2018-03-09] MEDS: MAGNESIUM OXIDE 400 MG TAB PO SCH ×2 (09:08→21:19)
[2018-03-09] MEDS: ALLOPURINOL 100 MG TAB PO SCH (09:08)
[2018-03-09] MEDS: FLUCONAZOLE 100 MG TAB PO SCH (09:09)
[2018-03-09] MEDS: FAMOTIDINE 20 MG TAB PO SCH ×2 (09:09→21:19)
[2018-03-09] MEDS: PYRIDOXINE 50 MG TAB PO SCH (09:09)
[2018-03-09] MEDS: ENOXAPARIN 40 MG/0.4 ML SYG SC SCH (09:10)
[2018-03-09] MEDS: SILVER SULFADIAZINE 1% 25 GM CR TOP SCH (09:10)
[2018-03-09] MEDS: VITAMIN A & D 5 GM OINT PACKET TOP SCH ×2 (09:15→21:18)
[2018-03-09] MEDS: NYSTATIN 15 GM POWDER BTL TOP SCH ×2 (09:16→21:25)
--- NOTE | 2018-03-09 10:15 | NUR ---
PT NOTE Therapy day number 14 Subjective Denies pain Pain Scale NUMERIC Pain Intensity 0 (0-10) Patient Stated Goal for Pain Relief 0 (0-10) Pain Level Comment deneis Pre Treatment Vital Signs Stable Yes Exercise Assessment Label Bilat Lower Extremity Exercise Type Manual Stretching Additional Exercise Comments semifowler: BLE all planes of motion; BUE anter reach, scap squz Exercise Assessment Label Bilat Upper Extremity Exercise Type Active ROM Additional Exercise Comments scap sqz, anterior reaching, longsitting in rev trend with bilat BR BUE sup Exercise Start Time 10:15 Exercise End Time 10:40 Total Exercise Time 25 min (8-127) Transfer Training Start Time 10:40 Sitting Tolerance 10 min Additional Mobility Comments SBA Longsitting in trevers trend with BUE support bilat BR Transfer Training End Time 10:53 Total Transfer Training Time 13 min (8-127) Additional Balance Assessments Comments fair balance during longsit with uni and Bilat UE support on BR Safety Judgement Good Activity Tolerance Fair Equipment Present Benavidez Catheter Additional Equipment Present wound vac Post Treatment Pain Intensity 0 0-10 Variance Documentation See Below Additional Post Treatment Comment no EOB 2/2 pt soiled, awaiting clean up Total Treament Time 38 min (8-127) Total Minutes 38 Total Units 3 PT Technical Record Comment PT NOTE S:Pt agreeable to PT, no c/o dizziness, requests pain med, RN informed. Cleared for PT RN Grant. O: Pt received semifowler, alert and oriented, Performed bed mobility and thera ex per tech record above to improve seated balance, functional activities and participation in ADL's, pt seated in long sitting with bed in reverse trandelenberg with knees elevated, pt using BUE and BR to support. Pt BTB and positioned for comfort post-tx with call light and needs in reach, bed alarm armed, RN updated re pt status. MANUFACTURING TECHNOLOGY ANALYST requested for pt clean up. A: Pt juan josé tx fairly, tolerated longsitting well P: Cont POC
--- NOTE | 2018-03-09 12:11 | NUR ---
WOUND VAC/NEGATIVE PRESSURE WOUND THERAPY DRESSING CHANGE: Right heel stage 4 pressure injury s/p debridement and application of NPWT by Dr. Adan. Removed one piece of black foam. Cleanse wound with normal saline. Pat dry. Protect periwound with 3M No-sting skin barrier and drapes. Applied one piece of black foam to wound bed. NPWT setting at 125mmHg low continue per DPM order. Next dressing change Friday. Photo documentation in chart. WOUND CARE FOLLOW UP: - Right anterior ankle healing stage 2 pressure injury evolved from intact deep tissue pressure injury possible related to TERRIE wrap. 0.8cmx0.4cmx<0.1cm. 100% red partial thickness wound with epithelization tissue. Scant serous drainage. No odor. Continue Xeroform dressing Change daily Per DPM order. - Previous Right lateral blood blisters x 2. Proximal blister resolved. Distal blister measured [id number]. Intact blood blisters. Periwound intact. No drainage. No odor. Continue to observe area. Please notify MD and wound nurse if any change of wound condition. Discussed above with RN, [facility]. GARFIELD Marrufo RN Addendum: 03/09/18 at 1436 by ERNESTO ARRIAGA RN Assessment for Right heel stage 4 wound: Full thickness wound with red granulate tissue and 20% yellow tissue. Periwound maceration. Small serosanguineous drainage. No odor. [id number]. - GARFIELD Marrufo RNN
--- NOTE | 2018-03-09 12:37 | PN ---
Date/Time of Note Date/Time of Note DATE: 03/09/18 TIME: 12:35 Assessment/Plan VTE Prophylaxis Risk score (from Nsg)>0 risk: 6 SCD applied (from Ns): No SCD contraindicated: other (wounds) Pharmacological prophylaxis: LMWH Lines/Catheters IV Catheter Type (from Nrs): Saline Lock Urinary Cath still in place: Yes Reason Cath still needed: skin wounds contaminated by urine Assessment/Plan Hospital Course SUBJECTIVE: No acute overnight episodes. OBJECTIVE: Vital signs-see below PHYSICAL EXAM: Constitutional: Bedbound male, not in acute distress. Psych: nl mood/affect, no complaints Head: atraumatic, normocephalic Eyes: nl conjunctiva, nl sclera ENMT: mucosa pink and moist, nl external ears & nose Neck: non-tender, supple Respiratory: clear to auscultation, normal air movement Cardiovascular: nl pulses, regular rate and rhythm Gastrointestinal: non-tender, soft, bowel sounds active in all 4 quadrants. Musculoskeletal/extremities: Paraplegic. Normal pulses,no cyanosis, no edema. Neurological: Alert oriented 3,nl speech, nl strength Skin: Bilateral heel with ulcers, covered with dressing. No oozing noted on dressing. 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 1. Bilateral heel Decub ulcers without evidence of OM -s/p excisional debridement of bilateral heel decubitus wounds 01/26=>.Wound cultures: Enterobacter cloacae -Left heel resolved -ulcers progressed on Rt heel => Repeat Bedside debridement and application of wound vac 03/04/18 -Antibiotic management per ID=>on AMP/Levaquin/ Fluconazole -Wound care 2. Paraplegia secondary to spinal disorder and back surgery 6 months ago -Exact nature of disorder and surgery unclear -Continue baclofen 3. Depression -Continue home Cymbalta 4. Hypertension -Continue Coreg 5. Debility secondary to #2. -Patient resides in a usp. 6. Chronic anemia with mild iron deficiency. -s/p tx 02/03=>stable H&H -Continue oral iron replacement. 7. Unstageable pressure ulcers, sacral coccyx -S/o bedside debridement 02/13/18 -WC: VANCO RESISTANT enterococcus 3+, coag negative staph 1+, alpha hemolytic strep 1+. -On appropriate antimicrobials -Continue wound care Prophylaxis:Lovenox/Pepcid Diet: Regular CODE STATUS: Full code Disposition: Continue current medical management. cont abx per podiatry /ID recs. pending usp placement. Patient was seen in collaboration with Result Diagram: 03/09/18 0631 03/09/18 0631 Results 24hrs Laboratory Tests Test 03/09/18 06:31 White Blood Count 5.1 Red Blood Count 3.72 L Hemoglobin 9.3 L Hematocrit 30.3 L Mean Corpuscular Volume 81.5 L Mean Corpuscular Hemoglobin 25.0 L Mean Corpuscular Hemoglobin Concent 30.7 L Red Cell Distribution Width 15.9 H Platelet Count 313 Mean Platelet Volume 9.1 Immature Granulocytes % 0.200 Neutrophils % 48.5 Lymphocytes % 33.3 Monocytes % 11.5 H Eosinophils % 5.7 Basophils % 0.8 Nucleated Red Blood Cells % 0.0 Immature Granulocytes # 0.010 Neutrophils # 2.5 Lymphocytes # 1.7 Monocytes # 0.6 Eosinophils # 0.3 Basophils # 0.0 Nucleated Red Blood Cells # 0.0 Sodium Level 143 Potassium Level 4.2 Chloride Level 107 Carbon Dioxide Level 24 Anion Gap 12 Blood Urea Nitrogen 32 H Creatinine 0.69 Est Glomerular Filtrat Rate mL/min > 60 Glucose Level 86 Calcium Level 9.7 Magnesium Level 2.2 Exam/Review of Systems Vital Signs Vitals Vital Signs Date Temp Pulse Resp B/P (MAP) Pulse Ox O2 O2 Flow FiO2 Time Delivery Rate 03/09/18 97.5 85 17 95/61 (72) 92 08:43 03/08/18 Room Air 16:52 Intake and Output 03/08/18 03/08/18 03/09/18 1515:00 23:00 07:00 IntakeIntake Total 720 ml 740 ml OutputOutput Total 900 ml 1300 ml BalanceBalance 720 ml -160 ml -1300 ml Medications Medications Current Medications IV Flush (NS 3 ml) 3 ml PER PROTOCOL IV ; Start 01/25/18 at 15:30 Ondansetron HCl (Zofran Inj) 4 mg Q6H PRN IV NAUSEA AND/OR VOMITING; Start 01/25/18 at 15:30 Acetaminophen (Tylenol Tab) 650 mg Q6H PRN PO PAIN LEVEL 1-3 OR FEVER; Start 01/25/18 at 15:30 Acetaminophen/ Hydrocodone Bitart ([place] (5/325)) 1 tab Q6H PRN PO MODERATE PAIN LEVEL 4-6 Last administered on 03/09/18 11:23; Admin Dose 1 TAB; Start 01/25/18 at 15:30 Allopurinol (Zyloprim) 100 mg DAILY PO Last administered on 03/09/18 09:08; Admin Dose 100 MG; Start 01/26/18 at 09:00 Baclofen (Lioresal) 10 mg TID PO Last administered on 03/09/18 09:08; Admin Dose 10 MG; Start 01/25/18 at 21:00 Carvedilol (Coreg) 12.5 mg BID PO Last administered on 03/08/18 20:02; Admin Dose 12.5 MG; Start 01/25/18 at 21:00 Duloxetine HCl (Cymbalta) 30 mg DAILY PO Last administered on 03/09/18 09:08; A dmin Dose 30 MG; Start 01/26/18 at 09:00 Famotidine (Pepcid) 20 mg BID PO Last administered on 03/09/18 09:09; Admin Dose 20 MG; Start 01/25/18 at 21:00 Folic Acid (Folic Acid) 1 mg DAILY PO Last administered on 03/09/18 09:08; Admin Dose 1 MG; Start 01/26/18 at 09:00 Gabapentin (Neurontin) 100 mg BID PO Last administered on 03/09/18 09:08; Admin Dose 100 MG; Start 01/25/18 at 21:00 Magnesium Oxide (Mag-Ox 400) 400 mg BID PO Last administered on 03/09/18 09:08; Admin Dose 400 MG; Start 01/25/18 at 21:00 Nystatin 1 applic BID TOP Last administered on 03/09/18 09:16; Admin Dose 1 APPLIC; Start 01/25/18 at 21:00 Pyridoxine HCl (Vitamin B6) 50 mg DAILY PO Last administered on 03/09/18 09:09; Admin Dose 50 MG; Start 01/26/18 at 09:00 Risperidone (Risperdal) 1 mg QHS PO Last administered on 03/08/18 20:02; Admin Dose 1 MG; Start 01/25/18 at 21:00 Zonisamide (Zonegran) 300 mg QHS PO Last administered on 03/08/18 20:02; Admin Dose 300 MG; Start 01/25/18 at 21:00 Eye Lubricant (Artificial Tears Oph) 1 drop Q8 BOTH EYES Last administered on 03/09/18 05:24; Admin Dose 1 DROP; Start 01/25/18 at 22:00 Miscellaneous Information (Pending Santyl Order For Wound Care) This patient woody... PRN PRN XX wound; Start 01/25/18 at 16:30 Vitamin A/Vitamin D (Vitamin A & D Oint) 1 applic BID TOP Last administered on 03/09/18 09:15; Admin Dose 1 APPLIC; Start 01/26/18 at 21:00 Docusate Sodium (Colace) 200 mg BID PO Last administered on 03/09/18 09:08; Admin Dose 200 MG; Start 01/27/18 at 21:00 Enoxaparin Sodium (Lovenox) 40 mg DAILY SC Last administered on 03/09/18 09:10; Admin Dose 40 MG; Start 01/28/18 at 09:00 Sodium Hypochlorite ([place] (Dilute 1/40)) 1 applic DAILY IRR Last administered on 03/08/18 10:45; Admin Dose 1 APPLIC; Start 01/27/18 at 18:30 Collagenase (Santyl) 1 applic DAILY TOP Last administered on 03/06/18 09:07; Admin Dose 1 APPLIC; Start 01/27/18 at 17:30 Hydrocortisone (Hydrocortisone 1% Cr) 1 applic BID TOP Last administered on 03/06/18 09:17; Admin Dose 1 APPLIC; Start 01/27/18 at 21:19 Collagenase (Santyl) 1 applic DAILY TOP Last administered on 03/08/18 10:52; Admin Dose 1 APPLIC; Start 02/04/18 at 09:00 Nitroglycerin (Nitroglycerin (Sl Tab) 0.4 Mg) 1 tab Q5M PRN SL ANGINA; Start 02/05/18 at 07:00 Morphine Sulfate (morphine) 6 mg Q4H PRN PO SEVERE PAIN LEVEL 7-10 Last administered on 1/6/19at 03:41; Admin Dose 6 MG; Start 02/11/18 at 20:00 Diphenhydramine HCl (Benadryl) 25 mg Q6H PRN IV itching Last administered on 02/20/18at 09:57; Admin Dose 25 MG; Start 02/19/18 at 14:00 Silver Sulfadiazine (Thermazene 1% 25 Gm) 1 applic DAILY TOP Last administered on 03/09/18 09:10; Admin Dose 1 APPLIC; Start 03/07/18 at 09:00 Levofloxacin (Levaquin) 500 mg DAILY@06 PO Last administered on 03/09/18 05:24; Admin Dose 500 MG; Start 03/08/18 at 06:00 Fluconazole (Diflucan) 100 mg DAILY PO Last administered on 03/09/18 09:09; Adm in Dose 100 MG; Start 03/08/18 at 12:00 Ampicillin (Ampicillin) 500 mg Q8 PO Last administered on 03/09/18 05:26; Admin Dose 500 MG; Start 03/08/18 at 14:00 LIVIA ADAME NP Mar 09, 2018 12:37
--- NOTE | 2018-03-09 14:12 | CONS ---
Date/Time of Note Date/Time of Note DATE: 03/09/18 TIME: 14:11 Assessment/Plan Assessment/Plan Hospital Course Patient is alert looks comfortable no fevers overnight Antimicrobials: Fluconazole ampicillin Levaquin Microbiology: Right heel wound culture grew enterococcus and Enterobacter cloacae, Sacral wound culture grew VRE, Perla albicans, coag negative staph Physical examination: Well-nourished well-developed middle-aged man who is awake in no distress. Head atraumatic normocephalic sclera nonicteric vehicle mucosa dry neck is supple chest rise symmetrical breath sounds diminished bases heart S1-S2. Abdomen soft bowel sounds present. Extremities without cyanosis. Assessment: 1. Right foot ulceration status post debridement down to muscle 2. Stage III sacral wound 3. Paraplegia 4. Hypertension 5. Diabetes Plan: Patient remains stable, continue abx, wound care per surgical and podiatry rec-s. Result Diagram: 03/09/18 0631 03/09/18 0631 Results 24hrs Laboratory Tests Test 03/09/18 06:31 White Blood Count 5.1 Red Blood Count 3.72 L Hemoglobin 9.3 L Hematocrit 30.3 L Mean Corpuscular Volume 81.5 L Mean Corpuscular Hemoglobin 25.0 L Mean Corpuscular Hemoglobin Concent 30.7 L Red Cell Distribution Width 15.9 H Platelet Count 313 Mean Platelet Volume 9.1 Immature Granulocytes % 0.200 Neutrophils % 48.5 Lymphocytes % 33.3 Monocytes % 11.5 H Eosinophils % 5.7 Basophils % 0.8 Nucleated Red Blood Cells % 0.0 Immature Granulocytes # 0.010 Neutrophils # 2.5 Lymphocytes # 1.7 Monocytes # 0.6 Eosinophils # 0.3 Basophils # 0.0 Nucleated Red Blood Cells # 0.0 Sodium Level 143 Potassium Level 4.2 Chloride Level 107 Carbon Dioxide Level 24 Anion Gap 12 Blood Urea Nitrogen 32 H Creatinine 0.69 Est Glomerular Filtrat Rate mL/min > 60 Glucose Level 86 Calcium Level 9.7 Magnesium Level 2.2 Consultation Date/Type/Reason Admit Date/Time Jan 26, 2018 at 08:29 Initial Consult Date 02/12/18 Type of Consult id Requesting Provider: LIVIA ADAME NP Exam/Review of Systems Vital Signs Vitals Vital Signs Date Temp Pulse Resp B/P (MAP) Pulse Ox O2 O2 Flow FiO2 Time Delivery Rate 03/09/18 97.5 85 17 95/61 (84) 92 08:43 03/08/18 Room Air 16:52 Intake and Output 03/08/18 03/08/18 03/09/18 1515:00 23:00 07:00 IntakeIntake Total 720 ml 740 ml OutputOutput Total 900 ml 1300 ml BalanceBalance 720 ml -160 ml -1300 ml Medications Medications Current Medications IV Flush (NS 3 ml) 3 ml PER PROTOCOL IV ; Start 01/25/18 at 15:30 Ondansetron HCl (Zofran Inj) 4 mg Q6H PRN IV NAUSEA AND/OR VOMITING; Start 01/25/18 at 15:30 Acetaminophen (Tylenol Tab) 650 mg Q6H PRN PO PAIN LEVEL 1-3 OR FEVER; Start 01/25/18 at 15:30 Acetaminophen/ Hydrocodone Bitart ([place] (5/325)) 1 tab Q6H PRN PO MODERATE PAIN LEVEL 4-6 Last administered on 03/09/18 11:23; Admin Dose 1 TAB; Start 01/25/18 at 15:30 Allopurinol (Zyloprim) 100 mg DAILY PO Last administered on 03/09/18 09:08; Admin Dose 100 MG; Start 01/26/18 at 09:00 Baclofen (Lioresal) 10 mg TID PO Last administered on 03/09/18 13:23; Admin Dose 10 MG; Start 01/25/18 at 21:00 Carvedilol (Coreg) 12.5 mg BID PO Last administered on 03/08/18 20:02; Admin Dose 12.5 MG; Start 01/25/18 at 21:00 Duloxetine HCl (Cymbalta) 30 mg DAILY PO Last administered on 03/09/18 09:08; Admin Dose 30 MG; Start 01/26/18 at 09:00 Famotidine (Pepcid) 20 mg BID PO Last administered on 03/09/18 09:09; Admin Dose 20 MG; Start 01/25/18 at 21:00 Folic Acid (Folic Acid) 1 mg DAILY PO Last administered on 03/09/18 09:08; Admin Dose 1 MG; Start 01/26/18 at 09:00 Gabapentin (Neurontin) 100 mg BID PO Last administered on 03/09/18 09:08; Admin Dose 100 MG; Start 01/25/18 at 21:00 Magnesium Oxide (Mag-Ox 400) 400 mg BID PO Last administered on 03/09/18 09:08; Admin Dose 400 MG; Start 01/25/18 at 21:00 Nystatin 1 applic BID TOP Last administered on 03/09/18 09:16; Admin Dose 1 APPLIC; Start 01/25/18 at 21:00 Pyridoxine HCl (Vitamin B6) 50 mg DAILY PO Last administered on 03/09/18 09:09; Admin Dose 50 MG; Start 01/26/18 at 09:00 Risperidone (Risperdal) 1 mg QHS PO Last administered on 03/08/18 20:02; Admin Dose 1 MG; Start 01/25/18 at 21:00 Zonisamide (Zonegran) 300 mg QHS PO Last administered on 03/08/18 20:02; Admin Dose 300 MG; Start 01/25/18 at 21:00 Eye Lubricant (Artificial Tears Oph) 1 drop Q8 BOTH EYES Last administered on 03/09/18 13:24; Admin Dose 1 DROP; Start 01/25/18 at 22:00 Miscellaneous Information (Pending Santyl Order For Wound Care) This patient woody... PRN PRN XX wound; Start 01/25/18 at 16:30 Vitamin A/Vitamin D (Vitamin A & D Oint) 1 applic BID TOP Last administered on 03/09/18 09:15; Admin Dose 1 APPLIC; Start 01/26/18 at 21:00 Docusate Sodium (Colace) 200 mg BID PO Last administered on 03/09/18 09:08; Admin Dose 200 MG; Start 01/27/18 at 21:00 Enoxaparin Sodium (Lovenox) 40 mg DAILY SC Last administered on 03/09/18 09:10; Admin Dose 40 MG; Start 01/28/18 at 09:00 Sodium Hypochlorite ([place] (Dilute 40)) 1 applic DAILY IRR Last administered on 03/08/18 10:45; Admin Dose 1 APPLIC; Start 01/27/18 at 18:30 Collagenase (Santyl) 1 applic DAILY TOP Last administered on 03/06/18 09:07; Admin Dose 1 APPLIC; Start 01/27/18 at 17:30 Hydrocortisone (Hydrocortisone 1% Cr) 1 applic BID TOP Last administered on 03/06/18 09:17; Admin Dose 1 APPLIC; Start 01/27/18 at 21:19 Collagenase (Santyl) 1 applic DAILY TOP Last administered on 03/08/18 10:52; Admin Dose 1 APPLIC; Start 02/04/18 at 09:00 Nitroglycerin (Nitroglycerin (Sl Tab) 0.4 Mg) 1 tab Q5M PRN SL ANGINA; Start 02/05/18 at 07:00 Morphine Sulfate (morphine) 6 mg Q4H PRN PO SEVERE PAIN LEVEL 7-10 Last a dministered on 03/08/18 03:41; Admin Dose 6 MG; Start 02/11/18 at 20:00 Diphenhydramine HCl (Benadryl) 25 mg Q6H PRN IV itching Last administered on 02/20/18 09:57; Admin Dose 25 MG; Start 02/19/18 at 14:00 Silver Sulfadiazine (Thermazene 1% 25 Gm) 1 applic DAILY TOP Last administered on 03/09/18 09:10; Admin Dose 1 APPLIC; Start 03/07/18 at 09:00 Levofloxacin (Levaquin) 500 mg DAILY@06 PO Last administered on 03/09/18 05:24; Admin Dose 500 MG; Start 03/08/18 at 06:00 Fluconazole (Diflucan) 100 mg DAILY PO Last administered on 03/09/18 09:09; Admin Dose 100 MG; Start 03/08/18 at 12:00 Ampicillin (Ampicillin) 500 mg Q8 PO Last administered on 03/09/18 13:23; Admin Dose 500 MG; Start 03/08/18 at 14:00 DINA VICTOR NP Mar 09, 2018 14:12
--- NOTE | 2018-03-09 14:17 | PN ---
Date/Time of Note Date/Time of Note DATE: 03/09/18 TIME: 14:15 Assessment/Plan Lines/Catheters IV Catheter Type (from [facility]): Saline Lock Benavidez in Place (from [facility]): Yes Assessment/Plan Chief Complaint/Hosp Course 1. Stage 3 necrotic wound: Noted with stool contamination s/p repeat excisional debridement 02/20; status post I&D&D of right thigh blister -cont local care> Santyl to sacrum > consider follow ups at wound care clinic near where he will be discharged> debridement again tomorrow -Continue Silver ointment to right thigh blister (S/P I&D) -frequent turning and off-loading -low air loss mattress -vitamin c -short term zinc -optimize nutrition -skin protection against devices 2. Bilateral lower extremity ulcers: with wound vac -As above -Per podiatry 3. Hypochromic microcytic anemia: -Monitor and transfuse as needed 4. Depression: -Psychiatric optimization 5. Paraplegia -Supportive 6. Hypertension -nutrition and medication optimization Thank you. Patient seen and examined in collaboration with Dr. Brian Angulo. Subjective 24 Hr Interval Summary Feels well. No fevers, chills, sob, congested cough, cp, palpitations, woody, dizziness, nausea, vomiting, diarrhea, dysuria. Exam/Review of Systems Vital Signs Vitals Vital Signs Date Temp Pulse Resp B/P (MAP) Pulse Ox O2 O2 Flow FiO2 Time Delivery Rate 03/09/18 97.5 85 17 95/61 (72) 92 08:43 03/08/18 Room Air 16:52 Intake and Output 03/08/18 03/08/18 03/09/18 1414:59 22:59 06:59 IntakeIntake Total 720 ml 740 ml OutputOutput Total 900 ml 1300 ml BalanceBalance 720 ml -160 ml -1300 ml Exam Free Text/Dictation Constitutional: alert, oriented Psych: nl mood/affect, anxiety (Minimal) Head: normocephalic, atraumatic Eyes: nl conjunctiva, EOMI, nl sclera ENMT: nl external ears & nose, nl lips & teeth, mucosa pink and moist Neck: supple, non-tender Respiratory: normal air movement; No congested cough Cardiovascular: regular rate and rhythm; No edema Gastrointestinal: soft, non-tender; No distended Musculoskeletal: nl extremities to inspection; No nl gait and stance Extremities: normal pulses; No edema Neurological: nl mental status, nl speech Skin: nl turgor, Sacral wound: no periwound erythema, no drainage, min slough; wound vac to lower leg; right thigh skin blister (status post I&D-top skin not noted; wound bed clean, no drainage/periwound erythema) Results Result Diagram: 03/09/18 0631 03/09/18 0631 FERNANDO DÍAZ NP Mar 09, 2018 14:17
[2018-03-09 14:47] VITALS: BP 125/70; PULSE 85; RESP 17
--- NOTE | 2018-03-09 18:37 | NUR ---
rn notes patient is alert and oriented X4, verbally responsive and able to make needs known, complains of pain and medicated as ordered and effective. all due medicine given and all needs attended to. turned and repositioned as scheduled and kept clean and dry. wound dressing dry and intact. wound vac dressing changed by wound care nurse. call light placed within reach and fall precautions observed well. remains afebrile. will continue to monitor.
[2018-03-09 20:00] VITALS: BP 123/72; PULSE 74; RESP 18
[2018-03-09] MEDS: ZONISAMIDE 100 MG CAP PO SCH (21:18)
[2018-03-09] MEDS: RISPERIDONE 1 MG TAB PO SCH (21:19)
[2018-03-10 02:53] VITALS: BP 101/62; PULSE 70; RESP 16
[2018-03-10] MEDS: HYDROCODONE/APAP (5/325) TAB PO PRN ×3 (04:29→18:14)
[2018-03-10] MEDS: AMPICILLIN 500 MG CAP PO SCH ×3 (05:15→22:10)
[2018-03-10] MEDS: ARTIFICIAL TEARS 15 ML OPH BOTH EYES SCH ×3 (05:15→22:10)
[2018-03-10] MEDS: LEVOFLOXACIN 500 MG TAB PO SCH (05:15)
--- NOTE | 2018-03-10 06:52 | NUR ---
no significant changes overnight, pt remained afebrile, VSS. wound care on left malleolus and sacrococcyx done as ordered. the rest of the wound dressings are dry and intact. turned and repositioned q2 hrs with incontinent checks , kept skin clean and dry. medicated with [place] for pain with relief. fall precautions observed with hourly rounding done. needs attended to and anticipated. will cont to monitor and will endorse to next shift.
[2018-03-10 08:00] VITALS: BP 109/69; PULSE 84; RESP 18
[2018-03-10] MEDS: HYDROCORTISONE 1% 28 GM CR TOP SCH ×2 (09:00→20:47)
[2018-03-10] MEDS: COLLAGENASE 5 GM (UD JAR) TOP SCH ×2 (09:00→09:09)
[2018-03-10] MEDS: DULOXETINE 30 MG CAP DR PO SCH (09:05)
[2018-03-10] MEDS: VITAMIN A & D 5 GM OINT PACKET TOP SCH ×2 (09:05→20:40)
[2018-03-10] MEDS: MAGNESIUM OXIDE 400 MG TAB PO SCH ×2 (09:05→20:40)
[2018-03-10] MEDS: PYRIDOXINE 50 MG TAB PO SCH (09:05)
[2018-03-10] MEDS: FAMOTIDINE 20 MG TAB PO SCH ×2 (09:06→20:40)
[2018-03-10] MEDS: ALLOPURINOL 100 MG TAB PO SCH (09:07)
[2018-03-10] MEDS: FOLIC ACID 1 MG TAB PO SCH (09:07)
[2018-03-10] MEDS: DOCUSATE SODIUM 100 MG CAP PO SCH ×2 (09:07→20:40)
[2018-03-10] MEDS: GABAPENTIN 100 MG CAP PO SCH ×2 (09:08→20:40)
[2018-03-10] MEDS: BACLOFEN 10 MG TAB PO SCH ×3 (09:08→20:40)
[2018-03-10] MEDS: FLUCONAZOLE 100 MG TAB PO SCH (09:11)
[2018-03-10] MEDS: ENOXAPARIN 40 MG/0.4 ML SYG SC SCH (09:13)
[2018-03-10] MEDS: SODIUM HYPOCHLORITE (1/40) 1 APPLIC BTL IRR SCH (09:13)
[2018-03-10] MEDS: SILVER SULFADIAZINE 1% 25 GM CR TOP SCH (09:13)
[2018-03-10] MEDS: NYSTATIN 15 GM POWDER BTL TOP SCH ×2 (09:14→20:41)
[2018-03-10] MEDS: BALSAM PERU/CASTOR OIL 60 GM TUBE TOP SCH (09:14)
[2018-03-10] MEDS: morphine LIQ (10 MG/5 ML) CUP PO PRN (09:16)
--- NOTE | 2018-03-10 12:51 | PN ---
Date/Time of Note Date/Time of Note DATE: 03/10/18 TIME: 12:50 Assessment/Plan VTE Prophylaxis Risk score (from Nsg)>0 risk: 5 SCD applied (from Nsg): Yes Pharmacological prophylaxis: LMWH Lines/Catheters IV Catheter Type (from Nrsg): Saline Lock Urinary Cath still in place: Yes Reason Cath still needed: skin wounds contaminated by urine Assessment/Plan Hospital Course SUBJECTIVE: No acute overnight episodes. OBJECTIVE: Vital signs-see below PHYSICAL EXAM: Constitutional: Bedbound male, not in acute distress. Psych: nl mood/affect, no complaints Head: atraumatic, normocephalic Eyes: nl conjunctiva, nl sclera ENMT: mucosa pink and moist, nl external ears & nose Neck: non-tender, supple Respiratory: clear to auscultation, normal air movement Cardiovascular: nl pulses, regular rate and rhythm Gastrointestinal: non-tender, soft, bowel sounds active in all 4 quadrants. Musculoskeletal/extremities: Paraplegic. Normal pulses,no cyanosis, no edema. Neurological: Alert oriented 3,nl speech, nl strength Skin: Bilateral heel with ulcers, covered with dressing. No oozing noted on dressing. 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 1. Bilateral heel Decub ulcers without evidence of OM -s/p excisional debridement of bilateral heel decubitus wounds 01/26=>.Wound cultures: Enterobacter cloacae -Left heel resolved -ulcers progressed on Rt heel => Repeat Bedside debridement and application of wound vac 03/04/18 -Antibiotic management per ID=>on AMP/Levaquin/ Fluconazole -Wound care 2. Paraplegia secondary to spinal disorder and back surgery 6 months ago -Exact nature of disorder and surgery unclear -Continue baclofen 3. Depression -Continue home Cymbalta 4. Hypertension -Continue Coreg 5. Debility secondary to #2. -Patient resides in a [facility]. 6. Chronic anemia with mild iron deficiency. -s/p tx 02/03=>stable H&H -Continue oral iron replacement. 7. Unstageable pressure ulcers, sacral coccyx -S/o bedside debridement 02/13/18 -WC: VANCO RESISTANT enterococcus 3+, coag negative staph 1+, alpha hemolytic strep 1+. -On appropriate antimicrobials -Continue wound care Prophylaxis:Lovenox/Pepcid Diet: Regular CODE STATUS: Full code Disposition: Continue current medical management. cont abx per podiatry /ID recs. pending [facility] placement. Patient was seen in collaboration with Cont Hosp Indication/DC Plan: placement Result Diagram: 03/09/1863003/09/18630 Exam/Review of Systems Vital Signs Vitals Vital Signs Date Temp Pulse Resp B/P (MAP) Pulse Ox O2 O2 Flow FiO2 Time Delivery Rate 03/10/18 98.6 84 18 109/69 100 08:00 (82) 03/09/18 Room Air 14:47 Intake and Output 03/09/18 03/09/18 03/10/18 1414:59 22:59 06:59 IntakeIntake Total 320 ml OutputOutput Total 1100 ml BalanceBalance 320 ml -1100 ml Medications Medications Current Medications IV Flush (NS 3 ml) 3 ml PER PROTOCOL IV ; Start 01/25/18 at 15:30 Ondansetron HCl (Zofran Inj) 4 mg Q6H PRN IV NAUSEA AND/OR VOMITING; Start 01/25/18 at 15:30 Acetaminophen (Tylenol Tab) 650 mg Q6H PRN PO PAIN LEVEL 1-3 OR FEVER; Start 01/25/18 at 15:30 Acetaminophen/ Hydrocodone Bitart ([place] (5/325)) 1 tab Q6H PRN PO MODERATE PAIN LEVEL 4-6 Last administered on 03/10/18 04:29; Admin Dose 1 TAB; Start 01/25/18 at 15:30 Allopurinol (Zyloprim) 100 mg DAILY PO Last administered on 03/10/18 09:07; Admin Dose 100 MG; Start 01/26/18 at 09:00 Baclofen (Lioresal) 10 mg TID PO Last administered on 03/10/18 09:08; Admin Dose 10 MG; Start 01/25/18 at 21:00 Carvedilol (Coreg) 12.5 mg BID PO Last administered on 03/09/18 21:22; Admin Dose 12.5 MG; Start 01/25/18 at 21:00 Duloxetine HCl (Cymbalta) 30 mg DAILY PO Last administered on 03/10/18 09:05; Admin Dose 30 MG; Start 01/26/18 at 09:00 Famotidine (Pepcid) 20 mg BID PO Last administered on 03/10/18 09:06; Admin Dose 20 MG; Start 01/25/18 at 21:00 Folic Acid (Folic Acid) 1 mg DAILY PO Last administered on 03/10/18 09:07; Admin Dose 1 MG; Start 01/26/18 at 09:00 Gabapentin (Neurontin) 100 mg BID PO Last administered on 03/10/18 09:08; Admin Dose 100 MG; Start 01/25/18 at 21:00 Magnesium Oxide (Mag-Ox 400) 400 mg BID PO Last administered on 03/10/18 09:05; Admin Dose 400 MG; Start 01/25/18 at 21:00 Nystatin 1 applic BID TOP Last administered on 03/10/18 09:14; Admin Dose 1 APPLIC; Start 01/25/18 at 21:00 Pyridoxine HCl (Vitamin B6) 50 mg DAILY PO Last administered on 03/10/18 09:05; Admin Dose 50 MG; Start 01/26/18 at 09:00 Risperidone (Risperdal) 1 mg QHS PO Last administered on 03/09/18 21:19; Admin Dose 1 MG; Start 01/25/18 at 21:00 Zonisamide (Zonegran) 300 mg QHS PO Last administered on 03/09/18 21:18; Admin Dose 300 MG; Start 01/25/18 at 21:00 Eye Lubricant (Artificial Tears Oph) 1 drop Q8 BOTH EYES Last administered on 03/10/18 05:15; Admin Dose 1 DROP; Start 01/25/18 at 22:00 Miscellaneous Information (Pending Santyl Order For Wound Care) This patient woody... PRN PRN XX wound; Start 01/25/18 at 16:30 Vitamin A/Vitamin D (Vitamin A & D Oint) 1 applic BID TOP Last administered on 03/10/18 09:05; Admin Dose 1 APPLIC; Start 01/26/18 at 21:00 Docusate Sodium (Colace) 200 mg BID PO Last administered on 03/10/18 09:07; Admin Dose 200 MG; Start 01/27/18 at 21:00 Enoxaparin Sodium (Lovenox) 40 mg DAILY SC Last administered on 03/10/18 09:13; Admin Dose 40 MG; Start 01/28/18 at 09:00 Sodium Hypochlorite (Dakin'S (Dilute )) 1 applic DAILY IRR Last administered on 03/10/18 09:13; Admin Dose 1 APPLIC; Start 01/27/18 at 18:30 Collagenase (Santyl) 1 applic DAILY TOP Last administered on 03/06/18 09:07; Admin Dose 1 APPLIC; Start 01/27/18 at 17:30 Hydrocortisone (Hydrocortisone 1% Cr) 1 applic BID TOP Last administered on 03/06/18 09:17; Admin Dose 1 APPLIC; Start 01/27/18 at 21:19 Collagenase (Santyl) 1 applic DAILY TOP Last administered on 03/10/18 09:09; Admin Dose 1 APPLIC; Start 02/04/18 at 09:00 Nitroglycerin (Nitroglycerin (Sl Tab) 0.4 Mg) 1 tab Q5M PRN SL ANGINA; Start 02/05/18 at 07:00 Morphine Sulfate (morphine) 6 mg Q4H PRN PO SEVERE PAIN LEVEL 7-10 Last administered on 03/10/18 09:16; Admin Dose 6 MG; Start 02/11/18 at 20:00 Diphenhydramine HCl (Benadryl) 25 mg Q6H PRN IV itching Last administered on 02/20/18at 09:57; Admin Dose 25 MG; Start 02/19/18 at 14:00 Silver Sulfadiazine (Thermazene 1% 25 Gm) 1 applic DAILY TOP Last administered on 03/10/18 09:13; Admin Dose 1 APPLIC; Start 03/07/18 at 09:00 Levofloxacin (Levaquin) 500 mg DAILY@06 PO Last administered on 03/10/18 05:15; Admin Dose 500 MG; Start 03/08/18 at 06:00 Fluconazole (Diflucan) 100 mg DAILY PO Last administered on 03/10/18 09:11; Admin Dose 100 MG; Start 03/08/18 at 12:00 Ampicillin (Ampicillin) 500 mg Q8 PO Last administered on 03/10/18 05:15; Admin Dose 500 MG; Start 03/08/18 at 14:00 LIVIA ADAME NP Mar 10, 2018 12:51
--- NOTE | 2018-03-10 15:29 | CONS ---
Date/Time of Note Date/Time of Note DATE: 03/10/18 TIME: 15:29 Assessment/Plan Assessment/Plan Hospital Course Patient is alert looks comfortable no fevers overnight Antimicrobials: Fluconazole ampicillin Levaquin Microbiology: Right heel wound culture grew enterococcus and Enterobacter cloacae, Sacral wound culture grew VRE, Perla albicans, coag negative staph Physical examination: Well-nourished well-developed middle-aged man who is awake in no distress. Head atraumatic normocephalic sclera nonicteric vehicle mucosa dry neck is supple chest rise symmetrical breath sounds diminished bases heart S1-S2. Abdomen soft bowel sounds present. Extremities without cyanosis. Assessment: 1. Right foot ulceration status post debridement down to muscle 2. Stage III sacral wound 3. Paraplegia 4. Hypertension 5. Diabetes Plan: Patient remains stable, continue abx, wound care per surgical and podiatry rec-s. Result Diagram: 03/09/18 0631 03/09/18 06 Consultation Date/Type/Reason Admit Date/Time Jan 26, 2018 at 08:29 Initial Consult Date 02/12/18 Type of Consult id Requesting Provider: LIVIA ADAME V. MAINTENANCE COORDINATOR Exam/Review of Systems Vital Signs Vitals Vital Signs Date Temp Pulse Resp B/P (MAP) Pulse Ox O2 O2 Flow FiO2 Time Delivery Rate 03/10/18 98.6 84 18 109/69 100 08:00 (82) 03/09/18 Room Air 14:47 Intake and Output 03/09/18 03/09/18 03/10/18 1515:00 23:00 07:00 IntakeIntake Total 320 ml OutputOutput Total 1100 ml BalanceBalance 320 ml -1100 ml Medications Medications Current Medications IV Flush (NS 3 ml) 3 ml PER PROTOCOL IV ; Start 01/25/18 at 15:30 Ondansetron HCl (Zofran Inj) 4 mg Q6H PRN IV NAUSEA AND/OR VOMITING; Start 01/25/18 at 15:30 Acetaminophen (Tylenol Tab) 650 mg Q6H PRN PO PAIN LEVEL 1-3 OR FEVER; Start 01/25/18 at 15:30 Acetaminophen/ Hydrocodone Bitart ([place] (5/325)) 1 tab Q6H PRN PO MODERATE PAIN LEVEL 4-6 Last administered on 03/10/18at 13:52; Admin Dose 1 TAB; Start 01/25/18 at 15:30 Allopurinol (Zyloprim) 100 mg DAILY PO Last administered on 03/10/18 09:07; Admin Dose 100 MG; Start 01/26/18 at 09:00 Baclofen (Lioresal) 10 mg TID PO Last administered on 03/10/18 13:46; Admin Dose 10 MG; Start 01/25/18 at 21:00 Carvedilol (Coreg) 12.5 mg BID PO Last administered on 03/09/18 21:22; Admin Dose 12.5 MG; Start 01/25/18 at 21:00 Duloxetine HCl (Cymbalta) 30 mg DAILY PO Last administered on 03/10/18 09:05; Admin Dose 30 MG; Start 01/26/18 at 09:00 Famotidine (Pepcid) 20 mg BID PO Last administered on 03/10/18 09:06; Admin Dose 20 MG; Start 01/25/18 at 21:00 Folic Acid (Folic Acid) 1 mg DAILY PO Last administered on 03/10/18 09:07; Admin Dose 1 MG; Start 01/26/18 at 09:00 Gabapentin (Neurontin) 100 mg BID PO Last administered on 03/10/18 09:08; Admin Dose 100 MG; Start 01/25/18 at 21:00 Magnesium Oxide (Mag-Ox 400) 400 mg BID PO Last administered on 03/10/18 09:05; Admin Dose 400 MG; Start 01/25/18 at 21:00 Nystatin 1 applic BID TOP Last administered on 03/10/18 09:14; Admin Dose 1 APPLIC; Start 01/25/18 at 21:00 Pyridoxine HCl (Vitamin B6) 50 mg DAILY PO Last administered on 03/10/18 09:05; Admin Dose 50 MG; Start 01/26/18 at 09:00 Risperidone (Risperdal) 1 mg QHS PO Last administered on 03/09/18 21:19; Admin Dose 1 MG; Start 01/25/18 at 21:00 Zonisamide (Zonegran) 300 mg QHS PO Last administered on 03/09/18 21:18; Admin Dose 300 MG; Start 01/25/18 at 21:00 Eye Lubricant (Artificial Tears Oph) 1 drop Q8 BOTH EYES Last administered on 03/10/18 13:47; Admin Dose 1 DROP; Start 01/25/18 at 22:00 Miscellaneous Information (Pending Santyl Order For Wound Care) This patient woody... PRN PRN XX wound; Start 01/25/18 at 16:30 Vitamin A/Vitamin D (Vitamin A & D Oint) 1 applic BID TOP Last administered on 03/10/18 09:05; Admin Dose 1 APPLIC; Start 01/26/18 at 21:00 Docusate Sodium (Colace) 200 mg BID PO Last administered on 03/10/18 09:07; Admin Dose 200 MG; Start 01/27/18 at 21:00 Enoxaparin Sodium (Lovenox) 40 mg DAILY SC Last administered on 03/10/18 09:13; Admin Dose 40 MG; Start 01/28/18 at 09:00 Sodium Hypochlorite (Dakin'S (Dilute 140)) 1 applic DAILY IRR Last administered on 03/10/18 09:13; Admin Dose 1 APPLIC; Start 01/27/18 at 18:30 Collagenase (Santyl) 1 applic DAILY TOP Last administered on 03/06/18 09:07; Admin Dose 1 APPLIC; Start 01/27/18 at 17:30 Hydrocortisone (Hydrocortisone 1% Cr) 1 applic BID TOP Last administered on 03/06/18 09:17; Admin Dose 1 APPLIC; Start 01/27/18 at 21:19 Collagenase (Santyl) 1 applic DAILY TOP Last administered on 03/10/18 09:09; Admin Dose 1 APPLIC; Start 02/04/18 at 09:00 Nitroglycerin (Nitroglycerin (Sl Tab) 0.4 Mg) 1 tab Q5M PRN SL ANGINA; Start 02/05/18 at 07:00 Morphine Sulfate (morphine) 6 mg Q4H PRN PO SEVERE PAIN LEVEL 7-10 Last administered on 03/10/18 09:16; Admin Dose 6 MG; Start 02/11/18 at 20:00 Diphenhydramine HCl (Benadryl) 25 mg Q6H PRN IV itching Last administered on 02/20/18 09:57; Admin Dose 25 MG; Start 02/19/18 at 14:00 Silver Sulfadiazine (Thermazene 1% 25 Gm) 1 applic DAILY TOP Last administered on 03/10/18 09:13; Admin Dose 1 APPLIC; Start 03/07/18 at 09:00 Levofloxacin (Levaquin) 500 mg DAILY@06 PO Last administered on 03/10/18 05:15; Admin Dose 500 MG; Start 03/08/18 at 06:00 Fluconazole (Diflucan) 100 mg DAILY PO Last administered on 03/10/18 09:11; Admin Dose 100 MG; Start 03/08/18 at 12:00 Ampicillin (Ampicillin) 500 mg Q8 PO Last administered on 03/10/18at 13:46; Admin Dose 500 MG; Start 03/08/18 at 14:00 DINA VICTOR NP Mar 10, 2018 15:29
[2018-03-10 15:36] VITALS: BP 110/62; PULSE 76; RESP 20
--- NOTE | 2018-03-10 16:52 | PN ---
Date/Time of Note Date/Time of Note DATE: 03/10/18 TIME: 16:49 Assessment/Plan Lines/Catheters IV Catheter Type (from [facility]): Saline Lock Benavidez in Place (from [facility]): Yes Assessment/Plan Chief Complaint/Hosp Course 1. Stage 3 necrotic wound: Noted with stool contamination s/p repeat excisional debridement 02/20; status post I&D&D of right thigh blister -cont local care> Santyl to sacrum > consider follow ups at wound care clinic near where he will be discharged> debridement again today -Continue Silver ointment to right thigh blister (S/P I&D) -frequent turning and off-loading -low air loss mattress -vitamin c -short term zinc -optimize nutrition -skin protection against devices 2. Bilateral lower extremity ulcers: with wound vac -As above -Per podiatry 3. Hypochromic microcytic anemia: -Monitor and transfuse as needed 4. Depression: -Psychiatric optimization 5. Paraplegia -Supportive 6. Hypertension -nutrition and medication optimization Thank you. Patient seen and examined in collaboration with Dr. Brian Angulo. Subjective 24 Hr Interval Summary Feels well. Debridement today. No fevers, chills, sob, congested cough, cp, palpitations, woody, dizziness, nausea, vomiting, diarrhea, dysuria. Exam/Review of Systems Vital Signs Vitals Vital Signs Date Temp Pulse Resp B/P (MAP) Pulse Ox O2 O2 Flow FiO2 Time Delivery Rate 03/10/18 98.8 76 20 110/62 96 15:36 (78) 03/09/18 Room Air 14:47 Intake and Output 03/09/18 03/09/18 03/10/18 1515:00 23:00 07:00 IntakeIntake Total 320 ml OutputOutput Total 1100 ml BalanceBalance 320 ml -1100 ml Exam Free Text/Dictation Constitutional: alert, oriented Psych: nl mood/affect, anxiety (Minimal) Head: normocephalic, atraumatic Eyes: nl conjunctiva, EOMI, nl sclera ENMT: nl external ears & nose, nl lips & teeth, mucosa pink and moist Neck: supple, non-tender Respiratory: normal air movement; No congested cough Cardiovascular: regular rate and rhythm; No edema Gastrointestinal: soft, non-tender; No distended Musculoskeletal: nl extremities to inspection; No nl gait and stance Extremities: normal pulses; No edema Neurological: nl mental status, nl speech Skin: nl turgor, Sacral wound: no periwound erythema, no drainage, moderate slough; wound vac to lower leg; right thigh skin blister (status post I&D-top skin not noted; wound bed clean, no drainage/periwound erythema) Results Result Diagram: 03/09/18 0631 03/09/18 0631 FERNANDO DÍAZ NP Mar 10, 2018 16:52
--- NOTE | 2018-03-10 16:58 | OPR ---
Date/Time of Note Date/Time of Note DATE: 03/10/18 TIME: 16:52 Operative Report Preoperative Diagnosis Sacral stage IV decubitus ulcer with slough and necrotic tissue, 4.2 x 4.2 centimeters Postoperative Diagnosis Sacral stage IV decubitus ulcer with slough and necrotic tissue, 4.2 x 4.2 cm Operation/Procedure Performed Excisional debridement of sacral skin, subcutaneous, muscle/fascia, bone 4.2 x 4 .2 cm Surgeon see signature line Master Plumber None Anesthesia Type: other (None) Estimated Blood Loss: 0 - 10 ml's Transfusion none Specimen None Grafts/Implants none Complications none Indications Per notes Procedure Description Risks, benefits, alternatives reviewed and agreed upon with patient. Patient placed in his own bed in right lateral decubitus. Area was prepped and draped in sterile fashion. Timeout was performed. Using scalpel and curette, the necrotic tissue and debris of the sacral skin, subcutaneous, muscle/fascia and bone were debrided to healthier edges. Area was irrigated with Dakins and packed with dakins moistened gauze. Dry dressing placed to cover. FERNANDO DÍAZ NP Mar 10, 2018 16:58
--- NOTE | 2018-03-10 18:38 | NUR ---
No acute changes during shift. Pt safe and free from injury. Pt repositioned and checked for incontinence Q2H. Heels elevated off of bed. Wound care done. Pt pain monitored and controlled throughout shift. No signs of discomfort or distress. No SOB. Pt currently sitting in bed eating dinner. Bed alarm on, call light within reach. Will continue to monitor.
[2018-03-10 20:00] VITALS: BP 99/63; PULSE 102; RESP 18
[2018-03-10] MEDS: RISPERIDONE 1 MG TAB PO SCH (20:40)
[2018-03-10] MEDS: ZONISAMIDE 100 MG CAP PO SCH (20:40)
[2018-03-11] MEDS: HYDROCODONE/APAP (5/325) TAB PO PRN ×3 (00:19→20:55)
[2018-03-11 02:00] VITALS: BP 106/57; PULSE 56; RESP 18
[2018-03-11] MEDS: ARTIFICIAL TEARS 15 ML OPH BOTH EYES SCH ×3 (05:35→22:04)
[2018-03-11] MEDS: LEVOFLOXACIN 500 MG TAB PO SCH (05:35)
[2018-03-11] MEDS: AMPICILLIN 500 MG CAP PO SCH ×3 (05:35→22:04)
[2018-03-11 08:00] VITALS: BP 121/73; PULSE 84; RESP 18
[2018-03-11] MEDS: COLLAGENASE 5 GM (UD JAR) TOP SCH ×2 (08:47)
[2018-03-11] MEDS: HYDROCORTISONE 1% 28 GM CR TOP SCH ×2 (08:47→21:00)
[2018-03-11] MEDS: ENOXAPARIN 40 MG/0.4 ML SYG SC SCH (08:58)
[2018-03-11] MEDS: ALLOPURINOL 100 MG TAB PO SCH (08:59)
[2018-03-11] MEDS: FAMOTIDINE 20 MG TAB PO SCH ×2 (08:59→20:54)
[2018-03-11] MEDS: GABAPENTIN 100 MG CAP PO SCH ×2 (08:59→20:54)
[2018-03-11] MEDS: MAGNESIUM OXIDE 400 MG TAB PO SCH ×2 (08:59→20:54)
[2018-03-11] MEDS: DOCUSATE SODIUM 100 MG CAP PO SCH ×2 (09:00→20:54)
[2018-03-11] MEDS: FOLIC ACID 1 MG TAB PO SCH (09:00)
[2018-03-11] MEDS: FLUCONAZOLE 100 MG TAB PO SCH (09:00)
[2018-03-11] MEDS: BALSAM PERU/CASTOR OIL 60 GM TUBE TOP SCH (09:00)
[2018-03-11] MEDS: BACLOFEN 10 MG TAB PO SCH ×3 (09:00→20:54)
[2018-03-11] MEDS: DULOXETINE 30 MG CAP DR PO SCH (09:00)
[2018-03-11] MEDS: PYRIDOXINE 50 MG TAB PO SCH (09:00)
[2018-03-11] MEDS: VITAMIN A & D 5 GM OINT PACKET TOP SCH ×2 (09:00→20:55)
[2018-03-11] MEDS: SODIUM HYPOCHLORITE (1/40) 1 APPLIC BTL IRR SCH (09:04)
[2018-03-11] MEDS: NYSTATIN 15 GM POWDER BTL TOP SCH ×2 (09:04→21:00)
[2018-03-11] MEDS: SILVER SULFADIAZINE 1% 25 GM CR TOP SCH (09:05)
--- NOTE | 2018-03-11 09:42 | NUR ---
WOUND VAC/NEGATIVE PRESSURE WOUND THERAPY DRESSING CHANGE (NPWT): Discussed with Primary RN, Grant. RN to change Right heel NPWT dressing. RN to take wound photo today and put in the chart. RN verbalized understanding. - MARKO MarrufoN RN CWOCN
--- NOTE | 2018-03-11 14:05 | PN ---
Date/Time of Note Date/Time of Note DATE: 03/11/18 TIME: 13:58 Assessment/Plan Lines/Catheters IV Catheter Type (from [facility]): Saline Lock Benavidez in Place (from [facility]): Yes Assessment/Plan Chief Complaint/Hosp Course 1. Stage 3 necrotic wound: Noted with stool contamination s/p repeat excisional debridement 03/10/18; status post I&D&D of right thigh blister -cont local care> Santyl to sacrum > consider follow ups at wound care clinic near where he will be discharged> wound VAC to sacrum -Continue Silver ointment to right thigh blister (S/P I&D) -frequent turning and off-loading -low air loss mattress -vitamin c -short term zinc -optimize nutrition -skin protection against devices 2. Bilateral lower extremity ulcers: with wound vac -As above -Per podiatry 3. Hypochromic microcytic anemia: -Monitor and transfuse as needed 4. Depression: -Psychiatric optimization 5. Paraplegia -Supportive 6. Hypertension -nutrition and medication optimization Thank you. Patient seen and examined in collaboration with Dr. Brian Angulo. Subjective 24 Hr Interval Summary Feels well. No excessive wound drainage from sacral wound. No fevers, chills, sob, congested cough, cp, palpitations, woody, dizziness, nausea, vomiting, diarrhe a, dysuria. Exam/Review of Systems Vital Signs Vitals Vital Signs Date Temp Pulse Resp B/P (MAP) Pulse Ox O2 O2 Flow FiO2 Time Delivery Rate 03/11/18 98.8 84 18 121/73 98 Room Air 08:00 (89) Intake and Output 03/10/18 03/10/18 03/11/18 1515:00 23:00 07:00 IntakeIntake Total 700 ml 450 ml 400 ml OutputOutput Total 1400 ml 0 ml 1700 ml BalanceBalance -700 ml 450 ml -1300 ml Exam Free Text/Dictation Constitutional: alert, oriented Psych: nl mood/affect, anxiety (Minimal) Head: normocephalic, atraumatic Eyes: nl conjunctiva, EOMI, nl sclera ENMT: nl external ears & nose, nl lips & teeth, mucosa pink and moist Neck: supple, non-tender Respiratory: normal air movement; No congested cough Cardiovascular: regular rate and rhythm; No edema Gastrointestinal: soft, non-tender; No distended Musculoskeletal: nl extremities to inspection; No nl gait and stance Extremities: normal pulses; No edema Neurological: nl mental status, nl speech Skin: nl turgor, Sacral wound: no periwound erythema, no drainage, clean, palpable/exposed bone; wound vac to lower leg; right thigh skin blister (status post I&D-top skin not noted; wound bed clean, no drainage/periwound erythema) Results Result Diagram: 03/09/18 0631 03/09/18 0631 FERNANDO DÍAZ NP Mar 11, 2018 14:05
--- NOTE | 2018-03-11 14:08 | CONS ---
Date/Time of Note Date/Time of Note DATE: 03/11/18 TIME: 14:08 Assessment/Plan Assessment/Plan Hospital Course No acute events, looks comfortable, no fevers Antimicrobials: Fluconazole ampicillin Levaquin Microbiology: Right heel wound culture grew enterococcus and Enterobacter cloacae, Sacral wound culture grew VRE, Perla albicans, coag negative staph Physical examination: Well-nourished well-developed middle-aged man who is awake in no distress. Head atraumatic normocephalic sclera nonicteric vehicle mucosa dry neck is supple chest rise symmetrical breath sounds diminished bases heart S1-S2. Abdomen soft bowel sounds present. Extremities without cyanosis. Assessment: 1. Right foot ulceration status post debridement down to muscle 2. Stage III sacral wound, s/p debridement 03/10/18 3. Paraplegia 4. Hypertension 5. Diabetes Plan: Patient remains stable, continue abx, wound care per surgical and podiatry rec-s. 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 Exam/Review of Systems Vital Signs Vitals Vital Signs Date Temp Pulse Resp B/P (MAP) Pulse Ox O2 O2 Flow FiO2 Time Delivery Rate 03/11/18 98.8 84 18 121/73 98 Room Air 08:00 (89) Intake and Output 03/10/18 03/10/18 03/11/18 1515:00 23:00 07:00 IntakeIntake Total 700 ml 450 ml 400 ml OutputOutput Total 1400 ml 0 ml 1700 ml BalanceBalance -700 ml 450 ml -1300 ml Medications Medications Current Medications IV Flush (NS 3 ml) 3 ml PER PROTOCOL IV ; Start 01/25/18 at 15:30 Ondansetron HCl (Zofran Inj) 4 mg Q6H PRN IV NAUSEA AND/OR VOMITING; Start 01/25/18 at 15:30 Acetaminophen (Tylenol Tab) 650 mg Q6H PRN PO PAIN LEVEL 1-3 OR FEVER; Start 01/25/18 at 15:30 Acetaminophen/ Hydrocodone Bitart ([place] (5/325)) 1 tab Q6H PRN PO MODERATE PAIN LEVEL 4-6 Last administered on 03/11/18 09:00; Admin Dose 1 TAB; Start 01/25/18 at 15:30 Allopurinol (Zyloprim) 100 mg DAILY PO Last administered on 03/11/18 08:59; Admin Dose 100 MG; Start 01/26/18 at 09:00 Baclofen (Lioresal) 10 mg TID PO Last administered on 03/11/18 13:36; Admin Do se 10 MG; Start 01/25/18 at 21:00 Carvedilol (Coreg) 12.5 mg BID PO Last administered on 03/11/18 09:00; Admin Dose 12.5 MG; Start 01/25/18 at 21:00 Duloxetine HCl (Cymbalta) 30 mg DAILY PO Last administered on 03/11/18 09:00; Admin Dose 30 MG; Start 01/26/18 at 09:00 Famotidine (Pepcid) 20 mg BID PO Last administered on 03/11/18 08:59; Admin Dose 20 MG; Start 01/25/18 at 21:00 Folic Acid (Folic Acid) 1 mg DAILY PO Last administered on 03/11/18 09:00; Admin Dose 1 MG; Start 01/26/18 at 09:00 Gabapentin (Neurontin) 100 mg BID PO Last administered on 03/11/18 08:59; Admin Dose 100 MG; Start 01/25/18 at 21:00 Magnesium Oxide (Mag-Ox 400) 400 mg BID PO Last administered on 03/11/18 08:59; Admin Dose 400 MG; Start 01/25/18 at 21:00 Nystatin 1 applic BID TOP Last administered on 03/11/18 09:04; Admin Dose 1 APPLIC; Start 01/25/18 at 21:00 Pyridoxine HCl (Vitamin B6) 50 mg DAILY PO Last administered on 03/11/18 09:00; Admin Dose 50 MG; Start 01/26/18 at 09:00 Risperidone (Risperdal) 1 mg QHS PO Last administered on 03/10/18 20:40; Admin Dose 1 MG; Start 01/25/18 at 21:00 Zonisamide (Zonegran) 300 mg QHS PO Last administered on 03/10/18 20:40; Admin Dose 300 MG; Start 01/25/18 at 21:00 Eye Lubricant (Artificial Tears Oph) 1 drop Q8 BOTH EYES Last administered on 03/11/18 13:36; Admin Dose 1 DROP; Start 01/25/18 at 22:00 Miscellaneous Information (Pending Santyl Order For Wound Care) This patient woody... PRN PRN XX wound; Start 01/25/18 at 16:30 Vitamin A/Vitamin D (Vitamin A & D Oint) 1 applic BID TOP Last administered on 03/11/18 09:00; Admin Dose 1 APPLIC; Start 01/26/18 at 21:00 Docusate Sodium (Colace) 200 mg BID PO Last administered on 03/11/18 09:00; Admin Dose 200 MG; Start 01/27/18 at 21:00 Enoxaparin Sodium (Lovenox) 40 mg DAILY SC Last administered on 03/11/18 08:58; Admin Dose 40 MG; Start 01/28/18 at 09:00 Sodium Hypochlorite (Dakin'S (Dilute 40)) 1 applic DAILY IRR Last administered on 03/11/18 09:04; Admin Dose 1 APPLIC; Start 01/27/18 at 18:30 Collagenase (Santyl) 1 applic DAILY TOP Last administered on 03/06/18 09:07; Admin Dose 1 APPLIC; Start 01/27/18 at 17:30 Hydrocortisone (Hydrocortisone 1% Cr) 1 applic BID TOP Last administered on 03/06/18 09:17; Admin Dose 1 APPLIC; Start 01/27/18 at 21:19 Collagenase (Santyl) 1 applic DAILY TOP Last administered on 03/10/18 09:09; Admin Dose 1 APPLIC; Start 02/04/18 at 09:00 Nitroglycerin (Nitroglycerin (Sl Tab) 0.4 Mg) 1 tab Q5M PRN SL ANGINA; Start 02/05/18 at 07:00 Morphine Sulfate (morphine) 6 mg Q4H PRN PO SEVERE PAIN LEVEL 7-10 Last administered on 03/10/18 09:16; Admin Dose 6 MG; Start 02/11/18 at 20:00 Diphenhydramine HCl (Benadryl) 25 mg Q6H PRN IV itching Last administered on 02/20/18at 09:57; Admin Dose 25 MG; Start 12/20/18 at 14:00 Silver Sulfadiazine (Thermazene 1% 25 Gm) 1 applic DAILY TOP Last administered on 03/11/18at 09:05; Admin Dose 1 APPLIC; Start 03/07/18 at 09:00 Levofloxacin (Levaquin) 500 mg DAILY@06 PO Last administered on 03/11/18at 05:35; Admin Dose 500 MG; Start 03/08/18 at 06:00 Fluconazole (Diflucan) 100 mg DAILY PO Last administered on 03/11/18at 09:00; Admin Dose 100 MG; Start 03/08/18 at 12:00 Ampicillin (Ampicillin) 500 mg Q8 PO Last administered on 03/11/18at 13:36; Admin Dose 500 MG; Start 03/08/18 at 14:00 DINA VICTOR NP Mar 11, 2018 14:08
--- NOTE | 2018-03-11 14:26 | PN ---
Date/Time of Note Date/Time of Note DATE: 03/11/18 TIME: 14:23 Assessment/Plan VTE Prophylaxis Risk score (from Nsg)>0 risk: 5 SCD applied (from Ns): No SCD contraindicated: other (wounds) Pharmacological prophylaxis: LMWH Lines/Catheters IV Catheter Type (from Nrs): Saline Lock Urinary Cath still in place: Yes Reason Cath still needed: skin wounds contaminated by urine Assessment/Plan Hospital Course SUBJECTIVE: No acute overnight episodes. OBJECTIVE: Vital signs-see below PHYSICAL EXAM: Constitutional: Bedbound male, not in acute distress. Psych: nl mood/affect, no complaints Head: atraumatic, normocephalic Eyes: nl conjunctiva, nl sclera ENMT: mucosa pink and moist, nl external ears & nose Neck: non-tender, supple Respiratory: clear to auscultation, normal air movement Cardiovascular: nl pulses, regular rate and rhythm Gastrointestinal: non-tender, soft, bowel sounds active in all 4 quadrants. Musculoskeletal/extremities: Paraplegic. Normal pulses,no cyanosis, no edema. Neurological: Alert oriented 3,nl speech, nl strength Skin: Bilateral heel with ulcers, covered with dressing. No oozing noted on dressing. Nl turgor ASSESSMENT/PLAN: Very unfortunate 57-year-old male with a history of paraplegia secondary to spinal cord syndrome 6 months ago, who also resides in a care home, presented to the emergency room with worsening bilateral heel ulcers with foul-smelling drainage.... 1. Bilateral heel Decub ulcers without evidence of OM -s/p excisional debridement of bilateral heel decubitus wounds 01/26=>.Wound cultures: Enterobacter cloacae -Left heel resolved -ulcers progressed on Rt heel => Repeat Bedside debridement and application of wound vac 03/04/18 -Antibiotic management per ID=>on AMP/Levaquin/ Fluconazole -Wound care 2. Paraplegia secondary to spinal disorder and back surgery 6 months ago -Exact nature of disorder and surgery unclear -Continue baclofen 3. Depression -Continue home Cymbalta 4. Hypertension -Continue Coreg 5. Debility secondary to #2. -Patient resides in a care home. 6. Chronic anemia with mild iron deficiency. -s/p tx 02/03=>stable H&H -Continue oral iron replacement. 7. Unstageable pressure ulcers, sacral coccyx -S/p bedside debridement 02/13/18=> deteriorates further secondary to immobilization/noncompliance with nursing turning protocol. -Repeat debridement 03/10/2018=>, Recommend wound VAC -WC: VANCO RESISTANT enterococcus 3+, coag negative staph 1+, alpha hemolytic strep 1+. -On appropriate antimicrobials -Continue wound care Prophylaxis:Lovenox/Pepcid Diet: Regular CODE STATUS: Full code Disposition: Wound care/antibiotics. Pending care home placement Patient was seen in collaboration with Result Diagram: 03/09/1863003/09/18630 Exam/Review of Systems Vital Signs Vitals Vital Signs Date Temp Pulse Resp B/P (MAP) Pulse Ox O2 O2 Flow FiO2 Time Delivery Rate 03/11/18 98.8 84 18 121/73 98 Room Air 08:00 (89) Intake and Output 03/10/18 03/10/18 03/11/18 1515:00 23:00 07:00 IntakeIntake Total 700 ml 450 ml 400 ml OutputOutput Total 1400 ml 0 ml 1700 ml BalanceBalance -700 ml 450 ml -1300 ml Medications Medications Current Medications IV Flush (NS 3 ml) 3 ml PER PROTOCOL IV ; Start 01/25/18 at 15:30 Ondansetron HCl (Zofran Inj) 4 mg Q6H PRN IV NAUSEA AND/OR VOMITING; Start 01/25/18 at 15:30 Acetaminophen (Tylenol Tab) 650 mg Q6H PRN PO PAIN LEVEL 1-3 OR FEVER; Start 01/25/18 at 15:30 Acetaminophen/ Hydrocodone Bitart ([place] (5/325)) 1 tab Q6H PRN PO MODERATE PAIN LEVEL 4-6 Last administered on 03/11/18 09:00; Admin Dose 1 TAB; Start 01/25/18 at 15:30 Allopurinol (Zyloprim) 100 mg DAILY PO Last administered on 03/11/18 08:59; Admin Dose 100 MG; Start 01/26/18 at 09:00 Baclofen (Lioresal) 10 mg TID PO Last administered on 03/11/18 13:36; Admin Dose 10 MG; Start 01/25/18 at 21:00 Carvedilol (Coreg) 12.5 mg BID PO Last administered on 03/11/18 09:00; Admin Dose 12.5 MG; Start 01/25/18 at 21:00 Duloxetine HCl (Cymbalta) 30 mg DAILY PO Last administered on 03/11/18 09:00; Admin Dose 30 MG; Start 01/26/18 at 09:00 Famotidine (Pepcid) 20 mg BID PO Last administered on 03/11/18 08:59; Admin Dose 20 MG; Start 01/25/18 at 21:00 Folic Acid (Folic Acid) 1 mg DAILY PO Last administered on 03/11/18 09:00; Admin Dose 1 MG; Start 01/26/18 at 09:00 Gabapentin (Neurontin) 100 mg BID PO Last administered on 03/11/18 08:59; Admin Dose 100 MG; Start 01/25/18 at 21:00 Magnesium Oxide (Mag-Ox 400) 400 mg BID PO Last administered on 03/11/18 08:59; Admin Dose 400 MG; Start 01/25/18 at 21:00 Nystatin 1 applic BID TOP Last administered on 03/11/18 09:04; Admin Dose 1 APPLIC; Start 01/25/18 at 21:00 Pyridoxine HCl (Vitamin B6) 50 mg DAILY PO Last administered on 03/11/18 09:00; Admin Dose 50 MG; Start 01/26/18 at 09:00 Risperidone (Risperdal) 1 mg QHS PO Last administered on 03/10/18 20:40; Admin Dose 1 MG; Start 01/25/18 at 21:00 Zonisamide (Zonegran) 300 mg QHS PO Last administered on 03/10/18 20:40; Admin Dose 300 MG; Start 01/25/18 at 21:00 Eye Lubricant (Artificial Tears Oph) 1 drop Q8 BOTH EYES Last administered on 03/11/18 13:36; Admin Dose 1 DROP; Start 01/25/18 at 22:00 Miscellaneous Information (Pending [facility] Order For Wound Care) This patient woody... PRN PRN XX wound; Start 01/25/18 at 16:30 Vitamin A/Vitamin D (Vitamin A & D Oint) 1 applic BID TOP Last administered on 03/11/18 09:00; Admin Dose 1 APPLIC; Start 01/26/18 at 21:00 Docusate Sodium (Colace) 200 mg BID PO Last administered on 03/11/18 09:00; Admin Dose 200 MG; Start 01/27/18 at 21:00 Enoxaparin Sodium (Lovenox) 40 mg DAILY SC Last administered on 03/11/18 08:58; Admin Dose 40 MG; Start 01/28/18 at 09:00 Sodium Hypochlorite (Dakin'S (Dilute )) 1 applic DAILY IRR Last administered on 03/11/18 09:04; Admin Dose 1 APPLIC; Start 01/27/18 at 18:30 Collagenase (Santyl) 1 applic DAILY TOP Last administered on 03/06/18 09:07; Admin Dose 1 APPLIC; Start 01/27/18 at 17:30 Hydrocortisone (Hydrocortisone 1% Cr) 1 applic BID TOP Last administered on 03/06/18 09:17; Admin Dose 1 APPLIC; Start 01/27/18 at 21:19 Collagenase (Santyl) 1 applic DAILY TOP Last administered on 03/10/18 09:09; Admin Dose 1 APPLIC; Start 02/04/18 at 09:00 Nitroglycerin (Nitroglycerin (Sl Tab) 0.4 Mg) 1 tab Q5M PRN SL ANGINA; Start 02/05/18 at 07:00 Morphine Sulfate (morphine) 6 mg Q4H PRN PO SEVERE PAIN LEVEL 7-10 Last administered on 03/10/18 09:16; Admin Dose 6 MG; Start 02/11/18 at 20:00 Diphenhydramine HCl (Benadryl) 25 mg Q6H PRN IV itching Last administered on 02/20/18at 09:57; Admin Dose 25 MG; Start 02/19/18 at 14:00 Silver Sulfadiazine (Thermazene 1% 25 Gm) 1 applic DAILY TOP Last administered on 03/11/18 09:05; Admin Dose 1 APPLIC; Start 03/07/18 at 09:00 Levofloxacin (Levaquin) 500 mg DAILY@06 PO Last administered on 03/11/18 05:35; Admin Dose 500 MG; Start 03/08/18 at 06:00 Fluconazole (Diflucan) 100 mg DAILY PO Last administered on 03/11/18 09:00; Admin Dose 100 MG; Start 03/08/18 at 12:00 Ampicillin (Ampicillin) 500 mg Q8 PO Last administered on 03/11/18at 13:36; Admin Dose 500 MG; Start 03/08/18 at 14:00 LIVIA ADAME NP Mar 11, 2018 14:26
[2018-03-11 14:49] VITALS: BP 118/64; PULSE 76; RESP 18
--- NOTE | 2018-03-11 18:23 | NUR ---
rn notes patient is alert and oriented X4, complains of pain and medicated as ordered and effective. all due medicine given. all needs attended to. kept clean and dry. turned and repositioned as scheduled on sides, found patient on his back. wound vac dressing changed. will endorse night sift to put wound vac dressing to sacrococcyx and order entered by [place], LEGISLATIVE AIDE is not complete, needs frequency to change wound vac dressing, will endorse next shift. all due medicine given and all needs attended to. call light placed within reach and fall precautions observed well. remains afebrile and will continue to monitor.
--- NOTE | 2018-03-11 19:20 | NUR ---
rn notes during shift change patient refused to do wound vac dressing tonight, wants to start from tomorrow. need clarification for sacrococcyx wound vac dressing pressure setting and frequency for dressing change, endorsed to night nurse.
--- NOTE | 2018-03-11 19:30 | NUR ---
DURING CHANGE OF SHIFT PATIENT REFUSED TO DO WOUND VAC DRESSING TONIGHT , WANTS TO START FROM TOMORROW DESPITE OF EXPLAINATION THE BENEFITS OF THE WOUND VAC BUT PATIENT STILL REFUSED . NEED CLARIFICATION FOR SACROCOCCYX WOUND VAC DRESSING PRESSURE SETTING AND FREQUENCY FOR DRESSING CHANGE . WILL ENDORSED TO DAY SHIFT RN .
[2018-03-11 19:40] VITALS: BP 102/61; PULSE 95; RESP 18
[2018-03-11] MEDS: ZONISAMIDE 100 MG CAP PO SCH (20:54)
[2018-03-11] MEDS: RISPERIDONE 1 MG TAB PO SCH (20:54)
[2018-03-12 02:06] VITALS: BP 99/61; PULSE 89; RESP 18
[2018-03-12] MEDS: ARTIFICIAL TEARS 15 ML OPH BOTH EYES SCH ×3 (05:37→21:57)
[2018-03-12] MEDS: AMPICILLIN 500 MG CAP PO SCH ×3 (05:38→21:57)
[2018-03-12] MEDS: LEVOFLOXACIN 500 MG TAB PO SCH (05:38)
[2018-03-12 07:50] VITALS: BP 118/75; PULSE 83; RESP 16
[2018-03-12] MEDS: ENOXAPARIN 40 MG/0.4 ML SYG SC SCH (08:37)
[2018-03-12] MEDS: DULOXETINE 30 MG CAP DR PO SCH (08:40)
[2018-03-12] MEDS: BACLOFEN 10 MG TAB PO SCH ×3 (08:40→20:43)
[2018-03-12] MEDS: PYRIDOXINE 50 MG TAB PO SCH (08:40)
[2018-03-12] MEDS: ALLOPURINOL 100 MG TAB PO SCH (08:40)
[2018-03-12] MEDS: FOLIC ACID 1 MG TAB PO SCH (08:40)
[2018-03-12] MEDS: FAMOTIDINE 20 MG TAB PO SCH ×2 (08:40→20:43)
[2018-03-12] MEDS: COLLAGENASE 5 GM (UD JAR) TOP SCH ×2 (08:40→08:43)
[2018-03-12] MEDS: VITAMIN A & D 5 GM OINT PACKET TOP SCH ×2 (08:41→20:41)
[2018-03-12] MEDS: FLUCONAZOLE 100 MG TAB PO SCH (08:41)
[2018-03-12] MEDS: GABAPENTIN 100 MG CAP PO SCH ×2 (08:41→20:43)
[2018-03-12] MEDS: MAGNESIUM OXIDE 400 MG TAB PO SCH ×2 (08:41→20:43)
[2018-03-12] MEDS: DOCUSATE SODIUM 100 MG CAP PO SCH ×2 (08:41→20:43)
[2018-03-12] MEDS: HYDROCORTISONE 1% 28 GM CR TOP SCH ×2 (08:42→21:55)
[2018-03-12] MEDS: NYSTATIN 15 GM POWDER BTL TOP SCH ×2 (08:42→20:46)
[2018-03-12] MEDS: SODIUM HYPOCHLORITE (1/40) 1 APPLIC BTL IRR SCH (08:42)
[2018-03-12] MEDS: SILVER SULFADIAZINE 1% 25 GM CR TOP SCH (08:43)
[2018-03-12] MEDS: BALSAM PERU/CASTOR OIL 60 GM TUBE TOP SCH (08:44)
[2018-03-12] MEDS: HYDROCODONE/APAP (5/325) TAB PO PRN (08:50)
--- NOTE | 2018-03-12 11:20 | CONS ---
Date/Time of Note Date/Time of Note DATE: 03/12/18 TIME: 11:20 Assessment/Plan Assessment/Plan Hospital Course No acute events, alert, looks comfortable, no fevers Antimicrobials: Fluconazole ampicillin Levaquin Microbiology: Right heel wound culture grew enterococcus and Enterobacter cloacae, Sacral wound culture grew VRE, Perla albicans, coag negative staph Physical examination: Well-nourished well-developed middle-aged man who is awake in no distress. Head atraumatic normocephalic sclera nonicteric vehicle mucosa dry neck is supple chest rise symmetrical breath sounds diminished bases heart S1-S2. Abdomen soft bowel sounds present. Extremities without cyanosis. Assessment: 1. Right foot ulceration status post debridement down to muscle 2. Stage III sacral wound, s/p debridement 03/10/18 3. Paraplegia 4. Hypertension 5. Diabetes Plan: Patient remains stable, continue abx, wound care per surgical and podiatry rec-s. 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 Exam/Review of Systems Vital Signs Vitals Vital Signs Date Temp Pulse Resp B/P (MAP) Pulse Ox O2 O2 Flow FiO2 Time Delivery Rate 03/12/18 97.8 83 16 118/75 98 Room Air 07:50 (89) Intake and Output 03/11/18 03/11/18 03/12/18 1414:59 22:59 06:59 IntakeIntake Total 650 ml 640 ml 200 ml OutputOutput Total 800 ml 1250 ml BalanceBalance 650 ml -160 ml -1050 ml Medications Medications Current Medications IV Flush (NS 3 ml) 3 ml PER PROTOCOL IV ; Start 01/25/18 at 15:30 Ondansetron HCl (Zofran Inj) 4 mg Q6H PRN IV NAUSEA AND/OR VOMITING; Start 01/25/18 at 15:30 Acetaminophen (Tylenol Tab) 650 mg Q6H PRN PO PAIN LEVEL 1-3 OR FEVER; Start 01/25/18 at 15:30 Acetaminophen/ Hydrocodone Bitart ([place] (5/325)) 1 tab Q6H PRN PO MODERATE PAIN LEVEL 4-6 Last administered on 03/12/18 08:50; Admin Dose 1 TAB; Start 01/25/18 at 15:30 Allopurinol (Zyloprim) 100 mg DAILY PO Last administered on 03/12/18 08:40; Admin Dose 100 MG; Start 01/26/18 at 09:00 Baclofen (Lioresal) 10 mg TID PO Last administered on 03/12/18 08:40; Admin Dose 10 MG; Start 01/25/18 at 21:00 Carvedilol (Coreg) 12.5 mg BID PO Last administered on 03/12/18 08:41; Admin Dose 12.5 MG; Start 01/25/18 at 21:00 Duloxetine HCl (Cymbalta) 30 mg DAILY PO Last administered on 03/12/18 08:40; Admin Dose 30 MG; Start 01/26/18 at 09:00 Famotidine (Pepcid) 20 mg BID PO Last administered on 03/12/18 08:40; Admin Dose 20 MG; Start 01/25/18 at 21:00 Folic Acid (Folic Acid) 1 mg DAILY PO Last administered on 03/12/18 08:40; Admin Dose 1 MG; Start 01/26/18 at 09:00 Gabapentin (Neurontin) 100 mg BID PO Last administered on 03/12/18 08:41; Admin Dose 100 MG; Start 01/25/18 at 21:00 Magnesium Oxide (Mag-Ox 400) 400 mg BID PO Last administered on 03/12/18 08:41; Admin Dose 400 MG; Start 01/25/18 at 21:00 Nystatin 1 applic BID TOP Last administered on 03/12/18 08:42; Admin Dose 1 APPLIC; Start 01/25/18 at 21:00 Pyridoxine HCl (Vitamin B6) 50 mg DAILY PO Last administered on 03/12/18 08:40; Admin Dose 50 MG; Start 01/26/18 at 09:00 Risperidone (Risperdal) 1 mg QHS PO Last administered on 03/11/18 20:54; Admin Dose 1 MG; Start 01/25/18 at 21:00 Zonisamide (Zonegran) 300 mg QHS PO Last administered on 03/11/18 20:54; Admin Dose 300 MG; Start 01/25/18 at 21:00 Eye Lubricant (Artificial Tears Oph) 1 drop Q8 BOTH EYES Last administered on 03/12/18 05:37; Admin Dose 1 DROP; Start 01/25/18 at 22:00 Miscellaneous Information (Pending Santyl Order For Wound Care) This patient woody... PRN PRN XX wound; Start 01/25/18 at 16:30 Vitamin A/Vitamin D (Vitamin A & D Oint) 1 applic BID TOP Last administered on 03/12/18 08:41; Admin Dose 1 APPLIC; Start 01/26/18 at 21:00 Docusate Sodium (Colace) 200 mg BID PO Last administered on 03/12/18 08:41; Admin Dose 200 MG; Start 01/27/18 at 21:00 Enoxaparin Sodium (Lovenox) 40 mg DAILY SC Last administered on 03/12/18 08:37; Admin Dose 40 MG; Start 01/28/18 at 09:00 Sodium Hypochlorite (Dakin'S (Dilute 40)) 1 applic DAILY IRR Last administered on 03/12/18 08:42; Admin Dose 1 APPLIC; Start 01/27/18 at 18:30 Collagenase (Santyl) 1 applic DAILY TOP Last administered on 03/12/18 08:40; Admin Dose 1 APPLIC; Start 01/27/18 at 17:30 Hydrocortisone (Hydrocortisone 1% Cr) 1 applic BID TOP Last administered on 03/06/18 09:17; Admin Dose 1 APPLIC; Start 01/27/18 at 21:19 Collagenase (Santyl) 1 applic DAILY TOP Last administered on 03/10/18 09:09; Admin Dose 1 APPLIC; Start 02/04/18 at 09:00 Nitroglycerin (Nitroglycerin (Sl Tab) 0.4 Mg) 1 tab Q5M PRN SL ANGINA; Start 02/05/18 at 07:00 Morphine Sulfate (morphine) 6 mg Q4H PRN PO SEVERE PAIN LEVEL 7-10 Last admin istered on 03/10/18 09:16; Admin Dose 6 MG; Start 02/11/18 at 20:00 Diphenhydramine HCl (Benadryl) 25 mg Q6H PRN IV itching Last administered on 02/20/18at 09:57; Admin Dose 25 MG; Start 02/19/18 at 14:00 Silver Sulfadiazine (Thermazene 1% 25 Gm) 1 applic DAILY TOP Last administered on 03/12/18 08:43; Admin Dose 1 APPLIC; Start 03/07/18 at 09:00 Levofloxacin (Levaquin) 500 mg DAILY@06 PO Last administered on 03/12/18 05:38; Admin Dose 500 MG; Start 03/08/18 at 06:00 Fluconazole (Diflucan) 100 mg DAILY PO Last administered on 03/12/18 08:41; Admin Dose 100 MG; Start 03/08/18 at 12:00 Ampicillin (Ampicillin) 500 mg Q8 PO Last administered on 03/12/18 05:38; Admin Dose 500 MG; Start 03/08/18 at 14:00 DINA VICTOR NP Mar 12, 2018 11:20
--- NOTE | 2018-03-12 11:45 | PN ---
Date/Time of Note Date/Time of Note DATE: 03/12/18 TIME: 11:40 Assessment/Plan Lines/Catheters IV Catheter Type (from Nrs): Saline Lock Benavidez in Place (from Nrs): Yes Assessment/Plan Chief Complaint/Hosp Course 1. Stage 3 necrotic wound: Noted with stool contamination s/p repeat excisional debridement 03/10/18; status post I&D&D of right thigh blister -cont local care> Santyl to sacrum > consider follow ups at wound care clinic near where he will be discharged> wound VAC to sacrum -pending (patient refused wound VAC last night, to be applied today) -Continue Silver ointment to right thigh blister (S/P I&D) -frequent turning and [id number] with patient importance of frequent turning however per nursing patient always returns to his back after being repositioned-once again reinforced importance of offloading -low air loss mattress -vitamin c -short term zinc -optimize nutrition -skin protection against devices 2. Bilateral lower extremity ulcers: with wound vac -As above -Per podiatry 3. Hypochromic microcytic anemia: -Monitor and transfuse as needed 4. Depression: -Psychiatric optimization 5. Paraplegia -Supportive 6. Hypertension -nutrition and medication optimization Thank you. Patient seen and examined in collaboration with Dr. Brian Angulo. Subjective 24 Hr Interval Summary Feels well. No fevers, chills, sob, congested cough, cp, palpitations, woody, dizziness, n/v/d/dysuria. Exam/Review of Systems Vital Signs Vitals Vital Signs Date Temp Pulse Resp B/P (MAP) Pulse Ox O2 O2 Flow FiO2 Time Delivery Rate 03/12/18 97.8 83 16 118/75 98 Room Air 07:50 (89) Intake and Output 03/11/18 03/11/18 03/12/18 1515:00 23:00 07:00 IntakeIntake Total 650 ml 640 ml 200 ml OutputOutput Total 800 ml 1250 ml BalanceBalance 650 ml -160 ml -1050 ml Exam Free Text/Dictation Constitutional: alert, oriented Psych: nl mood/affect, anxiety (Minimal) Head: normocephalic, atraumatic Eyes: nl conjunctiva, EOMI, nl sclera ENMT: nl external ears & nose, nl lips & teeth, mucosa pink and moist Neck: supple, non-tender Respiratory: normal air movement; No congested cough Cardiovascular: regular rate and rhythm; No edema Gastrointestinal: soft, non-tender; No distended Musculoskeletal: nl extremities to inspection; No nl gait and stance Extremities: normal pulses; No edema Neurological: nl mental status, nl speech Skin: nl turgor, Sacral wound: no periwound erythema, no drainage, clean, palpable/exposed bone; wound vac to lower leg; right thigh skin blister (status post I&D-top skin not noted; wound bed clean, no drainage/periwound erythema) Results Result Diagram: 03/09/1831 03/09/18 0631 FERNANDO DÍAZ NP Mar 12, 2018 11:45
--- NOTE | 2018-03-12 14:04 | PN ---
Date/Time of Note Date/Time of Note DATE: 03/12/18 TIME: 14:01 Assessment/Plan VTE Prophylaxis Risk score (from Ns)>0 risk: 4 SCD applied (from Ns): No SCD contraindicated: other (wound) Pharmacological prophylaxis: LMWH Lines/Catheters IV Catheter Type (from [facility]): Saline Lock Urinary Cath still in place: Yes Reason Cath still needed: pres ulcer contaminated by urine Assessment/Plan Hospital Course SUBJECTIVE: No acute overnight episodes. OBJECTIVE: Vital signs-see below PHYSICAL EXAM: Constitutional: Bedbound male, not in acute distress. Psych: nl mood/affect, no complaints Head: atraumatic, normocephalic Eyes: nl conjunctiva, nl sclera ENMT: mucosa pink and moist, nl external ears & nose Neck: non-tender, supple Respiratory: clear to auscultation, normal air movement Cardiovascular: nl pulses, regular rate and rhythm Gastrointestinal: non-tender, soft, bowel sounds active in all 4 quadrants. Musculoskeletal/extremities: Paraplegic. Normal pulses,no cyanosis, no edema. Neurological: Alert oriented 3,nl speech, nl strength Skin: Bilateral heel with ulcers, covered with dressing. No oozing noted on dressing. 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 1. Bilateral heel Decub ulcers without evidence of OM -s/p excisional debridement of bilateral heel decubitus wounds 01/26=>.Wound cultures: Enterobacter cloacae -Left heel resolved -ulcers progressed on Rt heel => Repeat Bedside debridement and application of wound vac 03/04/18 -Antibiotic management per ID=>on AMP/Levaquin/ Fluconazole -Wound care 2. Paraplegia secondary to spinal disorder and back surgery 6 months ago -Exact nature of disorder and surgery unclear -Continue baclofen 3. Depression -Continue home Cymbalta 4. Hypertension -Continue Coreg 5. Debility secondary to #2. -Patient resides in a usp. 6. Chronic anemia with mild iron deficiency. -s/p tx 02/03=>stable H&H -Continue oral iron replacement. 7. Unstageable pressure ulcers, sacral coccyx -S/p bedside debridement 02/13/18=> deteriorates further secondary to immobilization/noncompliance with nursing turning protocol. -Repeat debridement 03/10/2018 w/ application of wound VAC -WC: VANCO RESISTANT enterococcus 3+, coag negative staph 1+, alpha hemolytic strep 1+. -On appropriate antimicrobials -Continue wound care -Add vitamin C/zinc/Theragen. Continue protein supplements. -Dietary Consult Prophylaxis:Lovenox/Pepcid Diet: Regular CODE STATUS: Full code Disposition: Wound care/antibiotics. Pending usp placement Patient was seen in collaboration with Result Diagram: 03/09/1863003/09/18630 Exam/Review of Systems Vital Signs Vitals Vital Signs Date Temp Pulse Resp B/P (MAP) Pulse Ox O2 O2 Flow FiO2 Time Delivery Rate 03/12/18 97.8 83 16 118/75 98 Room Air 07:50 (89) Intake and Output 03/11/18 03/11/18 03/12/18 1515:00 23:00 07:00 IntakeIntake Total 650 ml 640 ml 200 ml OutputOutput Total 800 ml 1250 ml BalanceBalance 650 ml -160 ml -1050 ml Medications Medications Current Medications IV Flush (NS 3 ml) 3 ml PER PROTOCOL IV ; Start 01/25/18 at 15:30 Ondansetron HCl (Zofran Inj) 4 mg Q6H PRN IV NAUSEA AND/OR VOMITING; Start 01/25/18 at 15:30 Acetaminophen (Tylenol Tab) 650 mg Q6H PRN PO PAIN LEVEL 1-3 OR FEVER; Start 01/25/18 at 15:30 Acetaminophen/ Hydrocodone Bitart ([place] (5/325)) 1 tab Q6H PRN PO MODERATE PAIN LEVEL 4-6 Last administered on 03/12/18at 08:50; Admin Dose 1 TAB; Start 01/25/18 at 15:30 Allopurinol (Zyloprim) 100 mg DAILY PO Last administered on 03/12/18at 08:40; Admin Dose 100 MG; Start 01/26/18 at 09:00 Baclofen (Lioresal) 10 mg TID PO Last administered on 03/12/18at 13:21; Admin Dose 10 MG; Start 01/25/18 at 21:00 Carvedilol (Coreg) 12.5 mg BID PO Last administered on 03/12/18 08:41; Admin Dose 12.5 MG; Start 01/25/18 at 21:00 Duloxetine HCl (Cymbalta) 30 mg DAILY PO Last administered on 03/12/18 08:40; Admin Dose 30 MG; Start 01/26/18 at 09:00 Famotidine (Pepcid) 20 mg BID PO Last administered on 03/12/18 08:40; Admin Dose 20 MG; Start 01/25/18 at 21:00 Folic Acid (Folic Acid) 1 mg DAILY PO Last administered on 03/12/18 08:40; Admin Dose 1 MG; Start 01/26/18 at 09:00 Gabapentin (Neurontin) 100 mg BID PO Last administered on 03/12/18 08:41; Adm in Dose 100 MG; Start 01/25/18 at 21:00 Magnesium Oxide (Mag-Ox 400) 400 mg BID PO Last administered on 03/12/18 08:41; Admin Dose 400 MG; Start 01/25/18 at 21:00 Nystatin 1 applic BID TOP Last administered on 03/12/18 08:42; Admin Dose 1 APPLIC; Start 01/25/18 at 21:00 Pyridoxine HCl (Vitamin B6) 50 mg DAILY PO Last administered on 03/12/18 08:40; Admin Dose 50 MG; Start 01/26/18 at 09:00 Risperidone (Risperdal) 1 mg QHS PO Last administered on 03/11/18 20:54; Admin Dose 1 MG; Start 01/25/18 at 21:00 Zonisamide (Zonegran) 300 mg QHS PO Last administered on 03/11/18 20:54; Admin Dose 300 MG; Start 01/25/18 at 21:00 Eye Lubricant (Artificial Tears Oph) 1 drop Q8 BOTH EYES Last administered on 03/12/18 13:21; Admin Dose 1 DROP; Start 01/25/18 at 22:00 [facility] This patient woody... PRN PRN XX wound; Start 01/25/18 at 16:30 Vitamin A/Vitamin D (Vitamin A & D Oint) 1 applic BID TOP Last administered on 03/12/18 08:41; Admin Dose 1 APPLIC; Start 01/26/18 at 21:00 Docusate Sodium (Colace) 200 mg BID PO Last administered on 03/12/18 08:41; Admin Dose 200 MG; Start 01/27/18 at 21:00 Enoxaparin Sodium (Lovenox) 40 mg DAILY SC Last administered on 03/12/18 08:37; Admin Dose 40 MG; Start 01/28/18 at 09:00 Sodium Hypochlorite (Dakin'S (Dilute )) 1 applic DAILY IRR Last administered on 03/12/18 08:42; Admin Dose 1 APPLIC; Start 01/27/18 at 18:30 Collagenase (Santyl) 1 applic DAILY TOP Last administered on 03/12/18 08:40; Admin Dose 1 APPLIC; Start 01/27/18 at 17:30 Hydrocortisone (Hydrocortisone 1% Cr) 1 applic BID TOP Last administered on 03/06/18 09:17; Admin Dose 1 APPLIC; Start 01/27/18 at 21:19 Collagenase (Santyl) 1 applic DAILY TOP Last administered on 03/10/18 09:09; Admin Dose 1 APPLIC; Start 02/04/18 at 09:00 Nitroglycerin (Nitroglycerin (Sl Tab) 0.4 Mg) 1 tab Q5M PRN SL ANGINA; Start 02/05/18 at 07:00 Morphine Sulfate (morphine) 6 mg Q4H PRN PO SEVERE PAIN LEVEL 7-10 Last ad ministered on 03/10/18 09:16; Admin Dose 6 MG; Start 02/11/18 at 20:00 Diphenhydramine HCl (Benadryl) 25 mg Q6H PRN IV itching Last administered on 02/20/18at 09:57; Admin Dose 25 MG; Start 02/19/18 at 14:00 Silver Sulfadiazine (Thermazene 1% 25 Gm) 1 applic DAILY TOP Last administered on 03/12/18 08:43; Admin Dose 1 APPLIC; Start 03/07/18 at 09:00 Levofloxacin (Levaquin) 500 mg DAILY@06 PO Last administered on 03/12/18 05:38; Admin Dose 500 MG; Start 03/08/18 at 06:00 Fluconazole (Diflucan) 100 mg DAILY PO Last administered on 03/12/18 08:41; Admin Dose 100 MG; Start 03/08/18 at 12:00 Ampicillin (Ampicillin) 500 mg Q8 PO Last administered on 03/12/18at 13:24; Admin Dose 500 MG; Start 03/08/18 at 14:00 LIVIA ADAME NP Mar 12, 2018 14:04
[2018-03-12] MEDS: morphine LIQ (10 MG/5 ML) CUP PO PRN ×2 (14:36→21:55)
[2018-03-12 14:50] VITALS: BP 91/64; PULSE 89; RESP 16
--- NOTE | 2018-03-12 15:00 | NUR ---
WOUND EVALUATION: Requested by RN to assess blister to Right dorsal foot area. Right dorsal foot above Right anterior ankle partial thickness wound with irregular serum filled blister. Per RN, there was Tegaderm previously. RN reapplied Xeroform and Tegaderm to cover right anterior ankle partial thickness wound. Noticed patient starting to develop another blister to the edge of the Tegaderm. Patient's skin possible sensitive to certain adhesives and dressings. On 02/27/18, patient developed Left upper thigh blood blister under adhesive of StatLock and Right upper thigh intact serum filled blisters x 2 from StatLock adhesive. Right anterior ankle healing partial thickness wound. Previous suspecting pressure injury related to TERRIE wrap. From above assessment and history, Right anterior ankle original blister may cause by skin irritation from TERRIE wrap. Wound recommendations as follow: Right dorsal foot blister and Right anterior ankle wound: Cleanse with normal saline. Cover with Xeroform dressing and cover with foam border dressing. Change daily. - Previous Right Proximal blister and Distal blisters resolved. Discussed assessment and plan of care with Nica KEITA. Delilah Ferreira BSN RN CWOCN
--- NOTE | 2018-03-12 15:00 | NUR ---
Found a blister in anterior right foot with 4x3cm size. Skin is intact. Pale color. No redness noted. No complain of pain. MD is aware and wound care nurse Delilah seen the blister cleanse with NS, pat dry and cover with allevyn dressing. Tolerated well. Will continue to monitor.
--- NOTE | 2018-03-12 15:00 | NUR ---
Wound vac is in place at this time. No adverse effect noted. Tolerated well. No s/s of infection noted
--- NOTE | 2018-03-12 16:09 | NUR ---
PT NOTE , Therapy day number 15 Subjective Denies pain Pain Scale NUMERIC Pain Intensity 0 (0-10) Patient Stated Goal for Pain Relief 0 (0-10) Pain Level Comment N/A Exercise Assessment Label Bilat Lower Extremity Exercise Type Manual Stretching Additional Exercise Comments BLE'S IN SUPINE POSITION . Exercise Start Time 15:35 Exercise End Time 16:00 Total Exercise Time 25 min (8-127) Additional Mobility Comments NO SITTING AT EOB DUE TO PATIENT IS SOILED AWAITING CLEAN UP . Safety Judgement Good Activity Tolerance Poor Equipment Present Benavidez Catheter Additional Equipment Present WOUND VAC Post Treatment Pain Intensity 0 0-10 Variance Documentation P/S SEE PT NOTE . Total Treament Time 25 min (8-127) Total Minutes 25 Total Units 2 PT Technical Record Comment PT NOTE , RN CLEARED , PATIENT AGREEABLE . PATIENT FOUND IN BED IN SUPINE POSITION , PERFORMED MANUAL STRETCHING / P/ROM BLE'S TO LAMIN, PATIENT HAS DEVELOPED BLE'S WOUNDS WITH SACRAL WOUND WELL SEVERAL SKIN BLISTER, NO EOB TODAY DUE TO PATIENT IS SOILED AND AWAITING CLEANING . A: SNF PLACEMENT P: CONTINUE WITH POC DAILY X 2-3 ,
[2018-03-12] MEDS: ZINC SULFATE 220 MG CAP PO SCH (18:03)
[2018-03-12] MEDS: ASCORBIC ACID 500 MG TAB PO SCH (18:03)
[2018-03-12] MEDS: MULTIVITAMINS THERAPEUTIC TAB PO SCH (18:03)
[2018-03-12] MEDS: ZONISAMIDE 100 MG CAP PO SCH (20:43)
[2018-03-12] MEDS: RISPERIDONE 1 MG TAB PO SCH (20:43)
[2018-03-12 21:02] VITALS: BP 96/62; PULSE 94; RESP 18
[2018-03-12 21:58] VITALS: BP 102/62; PULSE 88
[2018-03-13] MEDS: HYDROCODONE/APAP (5/325) TAB PO PRN ×3 (02:17→20:12)
[2018-03-13 02:52] VITALS: BP 129/73; PULSE 56; RESP 18
[2018-03-13 04:44] VITALS: BP 106/69; PULSE 83
[2018-03-13] MEDS: ARTIFICIAL TEARS 15 ML OPH BOTH EYES SCH ×3 (05:05→21:50)
[2018-03-13] MEDS: AMPICILLIN 500 MG CAP PO SCH ×3 (05:06→22:00)
[2018-03-13] MEDS: morphine LIQ (10 MG/5 ML) CUP PO PRN ×3 (05:06→21:59)
[2018-03-13] MEDS: LEVOFLOXACIN 500 MG TAB PO SCH (05:06)
--- NOTE | 2018-03-13 06:00 | NUR ---
RN NOTES Wound vacuum functioning well, with minimal drainage. changed wound dressings. Morphine liquid given as ordered and [place] tab with positive effect. Turned and repositioned as scheduled. All nursing needs attended will continue to monitor.
--- NOTE | 2018-03-13 08:43 | NUR ---
cm note Referred to [facility] . Clinical faxed to [phone]
[2018-03-13] MEDS: DOCUSATE SODIUM 100 MG CAP PO SCH ×2 (09:05→20:11)
[2018-03-13] MEDS: FLUCONAZOLE 100 MG TAB PO SCH (09:05)
[2018-03-13] MEDS: ASCORBIC ACID 500 MG TAB PO SCH (09:05)
[2018-03-13] MEDS: DULOXETINE 30 MG CAP DR PO SCH (09:05)
[2018-03-13] MEDS: ALLOPURINOL 100 MG TAB PO SCH (09:05)
[2018-03-13] MEDS: FOLIC ACID 1 MG TAB PO SCH (09:05)
[2018-03-13] MEDS: MAGNESIUM OXIDE 400 MG TAB PO SCH ×2 (09:05→20:12)
[2018-03-13] MEDS: ZINC SULFATE 220 MG CAP PO SCH (09:05)
[2018-03-13] MEDS: BACLOFEN 10 MG TAB PO SCH ×3 (09:05→20:12)
[2018-03-13] MEDS: MULTIVITAMINS THERAPEUTIC TAB PO SCH (09:05)
[2018-03-13] MEDS: FAMOTIDINE 20 MG TAB PO SCH ×2 (09:06→20:12)
[2018-03-13] MEDS: GABAPENTIN 100 MG CAP PO SCH ×2 (09:06→20:12)
[2018-03-13] MEDS: HYDROCORTISONE 1% 28 GM CR TOP SCH ×2 (09:06→20:14)
[2018-03-13] MEDS: PYRIDOXINE 50 MG TAB PO SCH (09:06)
[2018-03-13] MEDS: VITAMIN A & D 5 GM OINT PACKET TOP SCH ×2 (09:06→20:14)
[2018-03-13] MEDS: COLLAGENASE 5 GM (UD JAR) TOP SCH ×2 (09:07→09:08)
[2018-03-13] MEDS: NYSTATIN 15 GM POWDER BTL TOP SCH ×2 (09:08→21:51)
[2018-03-13] MEDS: SODIUM HYPOCHLORITE (1/40) 1 APPLIC BTL IRR SCH (09:09)
[2018-03-13] MEDS: SILVER SULFADIAZINE 1% 25 GM CR TOP SCH (09:09)
[2018-03-13] MEDS: BALSAM PERU/CASTOR OIL 60 GM TUBE TOP SCH (09:09)
[2018-03-13] MEDS: ENOXAPARIN 40 MG/0.4 ML SYG SC SCH (09:10)
--- NOTE | 2018-03-13 09:26 | NUR ---
PT NOTE Therapy day number 16 Subjective Current complaint of pain Pain Scale NUMERIC Pain Intensity 8 (0-10) Patient Stated Goal for Pain Relief 0 (0-10) Pain Level Comment shoulder/neck/back pain Exercise Assessment Label Bilat Lower Extremity Exercise Type Manual Stretching Additional Exercise Comments Supine: PROM, heel slides, hip abd/add and manual stretching in all planes Exercise Assessment Label Bilat Upper Extremity Exercise Type Active ROM Additional Exercise Comments EOB: scap sqz, anterior reach, weightshift, trunk control w/ perturbations Exercise Start Time 08:20 Exercise End Time 08:45 Total Exercise Time 25 min (8-127) Transfer Training Start Time 08:45 Supine to Sit Maximum Assist Bed Mobility Sit to Supine Moderate Assist Additional Mobility Comments modA for roll L/R; maxA for sup>sit; modA for sit>sup; maxA EOB scooting Transfer Training End Time 09:00 Total Transfer Training Time 15 min (8-127) Static Sitting Balance Fair Dynamic Sitting Balance Fair minus Additional Balance Assessments Comments with BUE support, close SBA Balance Training Static or Dynamic Start Time 09:00 Balance Training Static or Dynamic End Time 09:13 Total Balance Training Time 13 min (8-127) Safety Judgement Good Activity Tolerance Fair Equipment Present Benavidez Catheter Additional Equipment Present 2 wound vacs, wedges Post Treatment Pain Intensity 8 0-10 Variance Documentation See Below Total Treament Time 53 min (8-127) Total Minutes 53 Total Units 4 PT Technical Record Comment PT NOTE S:Pt reports Bilat neck/shoulder/back pain that pt states is 2/2 positioning overnight, agreeable to PT. Cleared for PT per NEELA Villanueva O: Pt received semifowler in bed, alert and oriented with wedge for BLE heel pressure relief, 2 wound vacs. PT Iris Bell present for 2P assist. Pt ed for moderation with BUE thera ex using thera bands to prevent increased pain. Performed bed mobility tr, manual stretching, transfer training and balance traiing per tech record above with MaxA for sup>sit to close SBA for sitting at EOB. Pt ed for pressure relief and sidelying to prevent progression of sacral wound. Pt BTB and positioned for comfort post-tx with call light and needs in reach, pillows for sacral pressure relief while eating breakfast, NEELA Villanueva present in room, pt in no apparent distress. A: Pt jaun josé tx fairly, limited by BUE pain and pressure wounds/multiple lines P: Cont POC, progress as able
--- NOTE | 2018-03-13 09:29 | NUR ---
WOUND VAC FOR RIGHT HEEL: Discussed with primary RNKay. RN to change wound VAC dressing and take photo before new dressing application for right heel. Sacrococcyx with wound VAC dressing applied yesterday by staff nurse. Delilah Ferreira BSN RN CWOCN
[2018-03-13 09:38] VITALS: BP 108/68; PULSE 83; RESP 18
--- NOTE | 2018-03-13 10:18 | PN ---
Date/Time of Note Date/Time of Note DATE: 03/13/18 TIME: 10:16 Assessment/Plan Lines/Catheters IV Catheter Type (from Nrs): Saline Lock Benavidez in Place (from Nrs): Yes Assessment/Plan Chief Complaint/Hosp Course 1. Stage 4 necrotic wound: Noted with stool contamination s/p repeat excisional debridement 03/10/18; status post I&D&D of right thigh blister -cont local care> Santyl to sacrum > consider follow ups at wound care clinic near where he will be discharged> wound VAC to sacrum -Continue Silver ointment to right thigh blister (S/P I&D) -frequent turning and [id number] with patient importance of frequent turning however per nursing patient always returns to his back after being repositioned-once again reinforced importance of offloading -low air loss mattress -vitamin c -short term zinc -optimize nutrition -skin protection against devices 2. Bilateral lower extremity ulcers: with wound vac -As above -Per podiatry 3. Hypochromic microcytic anemia: -Monitor and transfuse as needed 4. Depression: -Psychiatric optimization 5. Paraplegia -Supportive 6. Hypertension -nutrition and medication optimization Thank you. Patient seen and examined in collaboration with Dr. Brian Angulo. Subjective 24 Hr Interval Summary Wound vac to sacrum applied yesterday. No fevers, chills, sob, congested cough, cp, palpitations, woody, dizziness, n/v/d/dysuria. Exam/Review of Systems Vital Signs Vitals Vital Signs Date Temp Pulse Resp B/P (MAP) Pulse Ox O2 O2 Flow FiO2 Time Delivery Rate 03/13/18 98.2 83 18 108/68 96 Room Air 09:38 (81) Intake and Output 03/12/18 03/12/18 03/13/18 1515:00 23:00 07:00 IntakeIntake Total 600 ml 300 ml 200 ml OutputOutput Total 1100 ml 1030 ml BalanceBalance 600 ml -800 ml -830 ml Exam Free Text/Dictation Constitutional: alert, oriented Psych: nl mood/affect, anxiety (Minimal) Head: normocephalic, atraumatic Eyes: nl conjunctiva, EOMI, nl sclera ENMT: nl external ears & nose, nl lips & teeth, mucosa pink and moist Neck: supple, non-tender Respiratory: normal air movement; No congested cough Cardiovascular: regular rate and rhythm; No edema Gastrointestinal: soft, non-tender; No distended Musculoskeletal: nl extremities to inspection; No nl gait and stance Extremities: normal pulses; No edema Neurological: nl mental status, nl speech Skin: nl turgor, Sacral wound: no periwound erythema, no drainage, wound vac; wound vac to lower leg; right thigh skin blister (status post I&D-top skin not noted; wound bed clean, no drainage/periwound erythema) Results Result Diagram: 03/09/1831 03/09/1831 FERNANDO DÍAZ NP Mar 13, 2018 10:18
--- NOTE | 2018-03-13 12:17 | PN ---
Date/Time of Note Date/Time of Note DATE: 03/13/18 TIME: 12:16 Assessment/Plan VTE Prophylaxis Risk score (from Nsg)>0 risk: 5 SCD applied (from Nsg): No SCD contraindicated: other (wounds) Pharmacological prophylaxis: LMWH Lines/Catheters IV Catheter Type (from Nrs): Saline Lock Urinary Cath still in place: Yes Reason Cath still needed: pres ulcer contaminated by urine Assessment/Plan Hospital Course SUBJECTIVE: Complains of constipation. OBJECTIVE: Vital signs-see below PHYSICAL EXAM: Constitutional: Bedbound male, not in acute distress. Psych: nl mood/affect, no complaints Head: atraumatic, normocephalic Eyes: nl conjunctiva, nl sclera ENMT: mucosa pink and moist, nl external ears & nose Neck: non-tender, supple Respiratory: clear to auscultation, normal air movement Cardiovascular: nl pulses, regular rate and rhythm Gastrointestinal: non-tender, soft, bowel sounds active in all 4 quadrants. Musculoskeletal/extremities: Paraplegic. Normal pulses,no cyanosis, no edema. Neurological: Alert oriented 3,nl speech, nl strength Skin: Bilateral heel with ulcers, covered with dressing. No oozing noted on dressing. Nl turgor ASSESSMENT/PLAN: Very unfortunate 57-year-old male with a history of paraplegia secondary to spinal cord syndrome 6 months ago, who also resides in a detention, presented to the emergency room with worsening bilateral heel ulcers with foul-smelling drainage.... 1. Bilateral heel Decub ulcers without evidence of OM -s/p excisional debridement of bilateral heel decubitus wounds 01/26=>.Wound cultures: Enterobacter cloacae -Left heel resolved -ulcers progressed on Rt heel => Repeat Bedside debridement and application of wound vac 03/04/18 -Antibiotic management per ID=>on AMP/Levaquin/ Fluconazole -Wound care 2. Paraplegia secondary to spinal disorder and back surgery 6 months ago -Exact nature of disorder and surgery unclear -Continue baclofen 3. Depression -Continue home Cymbalta 4. Hypertension -Continue Coreg 5. Debility secondary to #2. -Patient resides in a detention. 6. Chronic anemia with mild iron deficiency. -s/p tx 02/03=>stable H&H -Continue oral iron replacement. 7. Unstageable pressure ulcers, sacral coccyx -S/p bedside debridement 02/13/18=> deteriorates further secondary to immobilization/noncompliance with nursing turning protocol. -Repeat debridement 03/10/2018 w/ application of wound VAC -WC: VANCO RESISTANT enterococcus 3+, coag negative staph 1+, alpha hemolytic strep 1+. -On appropriate antimicrobials -Continue wound care -Add vitamin C/zinc/Theragen. Continue protein supplements. -Dietary Consult 8. Constipation -Continue stool softeners. PRN laxative Prophylaxis:Lovenox/Pepcid Diet: Regular CODE STATUS: Full code Disposition: Wound care/antibiotics. Pending [facility] placement Patient was seen in collaboration with Dr.Abe Sweet [facility] Indication/DC Plan: snf placement Result Diagram: 03/09/1863003/09/18630 Exam/Review of Systems Vital Signs Vitals Vital Signs Date Temp Pulse Resp B/P (MAP) Pulse Ox O2 O2 Flow FiO2 Time Delivery Rate 03/13/18 98.2 83 18 108/68 96 Room Air 09:38 (81) Intake and Output 03/12/18 03/12/18 03/13/18 1515:00 23:00 07:00 IntakeIntake Total 600 ml 300 ml 200 ml OutputOutput Total 1100 ml 1030 ml BalanceBalance 600 ml -800 ml -830 ml Medications Medications Current Medications IV Flush (NS 3 ml) 3 ml PER PROTOCOL IV ; Start 01/25/18 at 15:30 Ondansetron HCl (Zofran Inj) 4 mg Q6H PRN IV NAUSEA AND/OR VOMITING; Start 01/25/18 at 15:30 Acetaminophen (Tylenol Tab) 650 mg Q6H PRN PO PAIN LEVEL 1-3 OR FEVER; Start 01/25/18 at 15:30 Acetaminophen/ Hydrocodone Bitart ([place] (5/325)) 1 tab Q6H PRN PO MODERATE PAIN LEVEL 4-6 Last administered on 03/13/18 09:14; Admin Dose 1 TAB; Start 01/25/18 at 15:30 Allopurinol (Zyloprim) 100 mg DAILY PO Last administered on 03/13/18 09:05; Admin Dose 100 MG; Start 01/26/18 at 09:00 Baclofen (Lioresal) 10 mg TID PO Last administered on 03/13/18 09:05; Admin Dose 10 MG; Start 01/25/18 at 21:00 Carvedilol (Coreg) 12.5 mg BID PO Last administered on 03/12/18 08:41; Admin Dose 12.5 MG; Start 01/25/18 at 21:00 Duloxetine HCl (Cymbalta) 30 mg DAILY PO Last administered on 03/13/18 09:05; Admin Dose 30 MG; Start 01/26/18 at 09:00 Famotidine (Pepcid) 20 mg BID PO Last administered on 03/13/18 09:06; Admin Dose 20 MG; Start 01/25/18 at 21:00 Folic Acid (Folic Acid) 1 mg DAILY PO Last administered on 03/13/18 09:05; Admin Dose 1 MG; Start 01/26/18 at 09:00 Gabapentin (Neurontin) 100 mg BID PO Last administered on 03/13/18 09:06; Admin Dose 100 MG; Start 01/25/18 at 21:00 Magnesium Oxide (Mag-Ox 400) 400 mg BID PO Last administered on 03/13/18 09:05; Admin Dose 400 MG; Start 01/25/18 at 21:00 Nystatin 1 applic BID TOP Last administered on 03/13/18 09:08; Admin Dose 1 APPLIC; Start 01/25/18 at 21:00 Pyridoxine HCl (Vitamin B6) 50 mg DAILY PO Last administered on 03/13/18 09:06; Admin Dose 50 MG; Start 01/26/18 at 09:00 Risperidone (Risperdal) 1 mg QHS PO Last administered on 03/12/18 20:43; Admin Dose 1 MG; Start 01/25/18 at 21:00 Zonisamide (Zonegran) 300 mg QHS PO Last administered on 03/12/18 20:43; Admin Dose 300 MG; Start 01/25/18 at 21:00 Eye Lubricant (Artificial Tears Oph) 1 drop Q8 BOTH EYES Last administered on 03/13/18 05:05; Admin Dose 1 DROP; Start 01/25/18 at 22:00 [facility] This patient woody... PRN PRN XX wound; Start 01/25/18 at 16:30 Vitamin A/Vitamin D (Vitamin A & D Oint) 1 applic BID TOP Last administered on 03/13/18 09:06; Admin Dose 1 APPLIC; Start 01/26/18 at 21:00 Docusate Sodium (Colace) 200 mg BID PO Last administered on 03/13/18 09:05; Admin Dose 200 MG; Start 01/27/18 at 21:00 Enoxaparin Sodium (Lovenox) 40 mg DAILY SC Last administered on 03/13/18 09:10; Admin Dose 40 MG; Start 01/28/18 at 09:00 Sodium Hypochlorite (Dakin'S (Dilute )) 1 applic DAILY IRR Last administered on 03/13/18 09:09; Admin Dose 1 APPLIC; Start 01/27/18 at 18:30 Collagenase (Santyl) 1 applic DAILY TOP Last administered on 03/13/18 09:07; Admin Dose 1 APPLIC; Start 01/27/18 at 17:30 Hydrocortisone (Hydrocortisone 1% Cr) 1 applic BID TOP Last administered on 03/13/18 09:06; Admin Dose 1 APPLIC; Start 01/27/18 at 21:19 Collagenase (Santyl) 1 applic DAILY TOP Last administered on 03/13/18 09:08; Admin Dose 1 APPLIC; Start 02/04/18 at 09:00 Nitroglycerin (Nitroglycerin (Sl Tab) 0.4 Mg) 1 tab Q5M PRN SL ANGINA; Start 02/05/18 at 07:00 Morphine Sulfate (morphine) 6 mg Q4H PRN PO SEVERE PAIN LEVEL 7-10 Last administered on 03/13/18 05:06; Admin Dose 6 MG; Start 02/11/18 at 20:00 Diphenhydramine HCl (Benadryl) 25 mg Q6H PRN IV itching Last administered on 02/20/18at 09:57; Admin Dose 25 MG; Start 02/19/18 at 14:00 Silver Sulfadiazine (Thermazene 1% 25 Gm) 1 applic DAILY TOP Last administered on 03/13/18 09:09; Admin Dose 1 APPLIC; Start 03/07/18 at 09:00 Levofloxacin (Levaquin) 500 mg DAILY@06 PO Last administered on 03/13/18 05:06; Admin Dose 500 MG; Start 03/08/18 at 06:00 Fluconazole (Diflucan) 100 mg DAILY PO Last administered on 03/13/18 09:05; Admin Dose 100 MG; Start 03/08/18 at 12:00 Ampicillin (Ampicillin) 500 mg Q8 PO Last administered on 03/13/18 05:06; Admin Dose 500 MG; Start 03/08/18 at 14:00 Zinc Sulfate (Zinc Sulfate) 220 mg DAILY PO Last administered on 03/13/18 09:05; Admin Dose 220 MG; Start 03/12/18 at 14:30 Ascorbic Acid (Vitamin C) 500 mg DAILY PO Last administered on 03/13/18 09:05; Admin Dose 500 MG; Start 03/12/18 at 14:30 Multivitamins Therapeutic (Theragran) 1 tab DAILY PO Last administered on 03/13/18 09:05; Admin Dose 1 TAB; Start 03/12/18 at 14:30 LIVIA ADAME NP Mar 13, 2018 12:17
[2018-03-13] MEDS ORDERED: MAGNESIUM HYDROXIDE 30ML CUP PO ONE (13:00)
[2018-03-13] MEDS ORDERED: MAGNESIUM HYDROXIDE 30ML CUP PO PRN (13:00)
--- NOTE | 2018-03-13 14:16 | NUR ---
Nutrition Consult Consult regarding worsening pressure ulcers was ordered. Pt is receiving Gregg BID. He mentioned sometimes he does not have enough water to mix it with. Please provide him 1 cup iced water with lunch and dinner so he can mix and drink it. Pt is receiving vitamin therapy. However change vitamin C 500mg daily to BID, D/C Zn 220mg daily after 14 days, and add MVI/Min daily. Good PO and he is receiving double protein with meals. Will add Boost glu BID. Thank you!
[2018-03-13 15:34] VITALS: BP 90/56; RESP 18
--- NOTE | 2018-03-13 15:49 | CONS ---
Date/Time of Note Date/Time of Note DATE: 03/13/18 TIME: 15:48 Assessment/Plan Assessment/Plan Hospital Course Alert, feels good Antimicrobials: Fluconazole ampicillin Levaquin Microbiology: Right heel wound culture grew enterococcus and Enterobacter cloacae, Sacral wound culture grew VRE, Perla albicans, coag negative staph Physical examination: Well-nourished well-developed middle-aged man who is awake in no distress. Head atraumatic normocephalic sclera nonicteric vehicle mucosa dry neck is supple chest rise symmetrical breath sounds diminished bases heart S1-S2. Abdomen soft bowel sounds present. Extremities without cyanosis. Assessment: 1. Right foot ulceration status post debridement down to muscle 2. Stage III sacral wound, s/p debridement 03/10/18 3. Paraplegia 4. Hypertension 5. Diabetes Plan: Patient remains stable, continue abx to complete 2 weeks, wound care per surgical and podiatry rec-s. Result Diagram: 03/[id number]/[id number] Consultation Date/Type/Reason Admit Date/Time Jan 26, 2018 at 08:29 Initial Consult Date 02/12/18 Type of Consult id Requesting Provider: LIVIA ADAME V. HOSTEL MANAGER Exam/Review of Systems Vital Signs Vitals Vital Signs Date Temp Pulse Resp B/P (MAP) Pulse Ox O2 O2 Flow FiO2 Time Delivery Rate 03/13/18 98.0 18 90/56 (67) 97 Room Air 15:34 03/13/18 83 09:38 Intake and Output 03/12/18 03/12/18 03/13/18 1414:59 22:59 06:59 IntakeIntake Total 600 ml 300 ml 200 ml OutputOutput Total 1100 ml 1030 ml BalanceBalance 600 ml -800 ml -830 ml Medications Medications Current Medications IV Flush (NS 3 ml) 3 ml PER PROTOCOL IV ; Start 01/25/18 at 15:30 Ondansetron HCl (Zofran Inj) 4 mg Q6H PRN IV NAUSEA AND/OR VOMITING; Start 01/25/18 at 15:30 Acetaminophen (Tylenol Tab) 650 mg Q6H PRN PO PAIN LEVEL 1-3 OR FEVER; Start 01/25/18 at 15:30 Acetaminophen/ Hydrocodone Bitart ([place] (5/325)) 1 tab Q6H PRN PO MODERATE PAIN LEVEL 4-6 Last administered on 03/13/18 09:14; Admin Dose 1 TAB; Start at 15:30 Allopurinol (Zyloprim) 100 mg DAILY PO Last administered on 03/13/18 09:05; Admin Dose 100 MG; Start 01/26/18 at 09:00 Baclofen (Lioresal) 10 mg TID PO Last administered on 03/13/18 13:20; Admin Dose 10 MG; Start 01/25/18 at 21:00 Carvedilol (Coreg) 12.5 mg BID PO Last administered on 03/12/18 08:41; Admin Dose 12.5 MG; Start 01/25/18 at 21:00 Duloxetine HCl (Cymbalta) 30 mg DAILY PO Last administered on 03/13/18 09:05; Admin Dose 30 MG; Start 01/26/18 at 09:00 Famotidine (Pepcid) 20 mg BID PO Last administered on 03/13/18 09:06; Admin Dose 20 MG; Start 01/25/18 at 21:00 Folic Acid (Folic Acid) 1 mg DAILY PO Last administered on 03/13/18 09:05; Admin Dose 1 MG; Start 01/26/18 at 09:00 Gabapentin (Neurontin) 100 mg BID PO Last administered on 03/13/18 09:06; Admin Dose 100 MG; Start 01/25/18 at 21:00 Magnesium Oxide (Mag-Ox 400) 400 mg BID PO Last administered on 03/13/18 09:05; Admin Dose 400 MG; Start 01/25/18 at 21:00 Nystatin 1 applic BID TOP Last administered on 03/13/18 09:08; Admin Dose 1 APPLIC; Start 01/25/18 at 21:00 Pyridoxine HCl (Vitamin B6) 50 mg DAILY PO Last administered on 03/13/18 09:06; Admin Dose 50 MG; Start 01/26/18 at 09:00 Risperidone (Risperdal) 1 mg QHS PO Last administered on 03/12/18 20:43; Admin Dose 1 MG; Start 01/25/18 at 21:00 Zonisamide (Zonegran) 300 mg QHS PO Last administered on 03/12/18 20:43; Admin Dose 300 MG; Start 01/25/18 at 21:00 Eye Lubricant (Artificial Tears Oph) 1 drop Q8 BOTH EYES Last administered on 03/13/18 13:20; Admin Dose 1 DROP; Start 01/25/18 at 22:00 Miscellaneous Information (Pending Santyl Order For Wound Care) This patient woody... PRN PRN XX wound; Start 01/25/18 at 16:30 Vitamin A/Vitamin D (Vitamin A & D Oint) 1 applic BID TOP Last administered on 03/13/18 09:06; Admin Dose 1 APPLIC; Start 01/26/18 at 21:00 Docusate Sodium (Colace) 200 mg BID PO Last administered on 03/13/18 09:05; Admin Dose 200 MG; Start 01/27/18 at 21:00 Enoxaparin Sodium (Lovenox) 40 mg DAILY SC Last administered on 03/13/18 09:10; Admin Dose 40 MG; Start 01/28/18 at 09:00 Sodium Hypochlorite (Dakin'S (Dilute 40)) 1 applic DAILY IRR Last administered on 03/13/18 09:09; Admin Dose 1 APPLIC; Start 01/27/18 at 18:30 Collagenase (Santyl) 1 applic DAILY TOP Last administered on 03/13/18 09:07; Admin Dose 1 APPLIC; Start 01/27/18 at 17:30 Hydrocortisone (Hydrocortisone 1% Cr) 1 applic BID TOP Last administered on 03/13/18 09:06; Admin Dose 1 APPLIC; Start 01/27/18 at 21:19 Collagenase (Santyl) 1 applic DAILY TOP Last administered on 03/13/18 09:08; Admin Dose 1 APPLIC; Start 02/04/18 at 09:00 Nitroglycerin (Nitroglycerin (Sl Tab) 0.4 Mg) 1 tab Q5M PRN SL ANGINA; Start 02/05/18 at 07:00 Morphine Sulfate (morphine) 6 mg Q4H PRN PO SEVERE PAIN LEVEL 7-10 Last administered on 03/13/18 13:20; Admin Dose 6 MG; Start 02/11/18 at 20:00 Diphenhydramine HCl (Benadryl) 25 mg Q6H PRN IV itching Last administered on 02/20/18at 09:57; Admin Dose 25 MG; Start 02/19/18 at 14:00 Silver Sulfadiazine (Thermazene 1% 25 Gm) 1 applic DAILY TOP Last administered on 03/13/18 09:09; Admin Dose 1 APPLIC; Start 03/07/18 at 09:00 Levofloxacin (Levaquin) 500 mg DAILY@06 PO Last administered on 03/13/18 05:06; Admin Dose 500 MG; Start 03/08/18 at 06:00 Fluconazole (Diflucan) 100 mg DAILY PO Last administered on 03/13/18 09:05; Admin Dose 100 MG; Start 03/08/18 at 12:00 Ampicillin (Ampicillin) 500 mg Q8 PO Last administered on 03/13/18at 13:20; Admin Dose 500 MG; Start 03/08/18 at 14:00 Zinc Sulfate (Zinc Sulfate) 220 mg DAILY PO Last administered on 03/13/18 09:05; Admin Dose 220 MG; Start 03/12/18 at 14:30 Ascorbic Acid (Vitamin C) 500 mg DAILY PO Last administered on 03/13/18at 09:05; Admin Dose 500 MG; Start 03/12/18 at 14:30 Multivitamins Therapeutic (Theragran) 1 tab DAILY PO Last administered on 03/13/18 09:05; Admin Dose 1 TAB; Start 03/12/18 at 14:30 Magnesium Hydroxide (Milk Of Mag) 30 ml DAILY PRN PO CONSTIPATION; Start 03/13/18 at 13:00 DINA VICTOR NP Mar 13, 2018 15:49
--- NOTE | 2018-03-13 18:42 | NUR ---
No acute changes during shift. Pt safe and free from injury. Pt repositioned and checked for incontinence Q2H. Heels elevated off of bed. Wound care done. Pt pain monitored and controlled throughout shift. No signs of discomfort or distress. No SOB. Pt currently comfortable in bed watching TV. Bed alarm on, call light within reach. Will continue to monitor.
--- NOTE | 2018-03-13 19:48 | PN ---
DATE: 03/13/2018 SUBJECTIVE: The patient is being followed for bilateral pressure heel sores, currently using negativ e pressure wound therapy on the right. The patient's last culture revealed Enterococcus, coag negati ve Staph on the foot and on the sacral area VRE and coag negative Staph and Perla. The patient is currently on fluconazole, Levaquin and ampicillin. OBJECTIVE: VITAL SIGNS: Temperature 98.3, pulse is 83, respiratory rate 18, blood pressure is 108/68, pulse ox is 96% on room air. GENERAL: The patient sleepy. SKIN: Wound VAC intact, functioning at 125 mmHg, minimal drainage. LABORATORIES: WBC 5.1, hemoglobin 9.3, hematocrit 30.3, platelets 313. Wound cultures are reviewed. ASSESSMENT: 1. Paraplegia. 2. Right heel ulceration stage III. 3. Peripheral neuropathy. 4. Hypertension. 5. Depression. PLAN: I reviewed culture results. Continue current VAC therapy, likely to require for 1 to 2 months . Can obtain wound cultures with next dressing change. Dictated By: JAZMIN GLEASON DPM RB/JARED Conf#: [id number] DID#: [id number] CC: TRAVIS CLEMONS MD; ALEKSANDR GALAVIZ MD;*End*
[2018-03-13 20:00] VITALS: BP 100/57; RESP 17
[2018-03-13] MEDS: ZONISAMIDE 100 MG CAP PO SCH (20:11)
[2018-03-13] MEDS: RISPERIDONE 1 MG TAB PO SCH (20:13)
[2018-03-14 02:00] VITALS: BP 110/66; PULSE 80; RESP 18
[2018-03-14] MEDS: HYDROCODONE/APAP (5/325) TAB PO PRN ×3 (05:19→20:11)
[2018-03-14] MEDS: LEVOFLOXACIN 500 MG TAB PO SCH (05:19)
[2018-03-14] MEDS: AMPICILLIN 500 MG CAP PO SCH ×3 (05:19→21:59)
[2018-03-14] MEDS: ARTIFICIAL TEARS 15 ML OPH BOTH EYES SCH ×3 (05:19→22:04)
--- NOTE | 2018-03-14 07:39 | NUR ---
RN Notes Patient had no changes in condition overnight. Pain adequately managed with PRN medications. No adverse reactions/effects. Hourly rounding provided; patient's bed at lowest position with bed alarm activated for safety. Patient kept clean, dry and comfortable throughout shift. Turned/repositioned every two hours and as needed for comfort. Wound care provided and documented accordingly.
[2018-03-14 07:55] VITALS: BP 109/66; PULSE 80; RESP 16
[2018-03-14] MEDS: DOCUSATE SODIUM 100 MG CAP PO SCH ×2 (09:00→20:12)
[2018-03-14] MEDS: SILVER SULFADIAZINE 1% 25 GM CR TOP SCH (09:00)
[2018-03-14] MEDS: BALSAM PERU/CASTOR OIL 60 GM TUBE TOP SCH (09:00)
[2018-03-14] MEDS: SODIUM HYPOCHLORITE (1/40) 1 APPLIC BTL IRR SCH (09:00)
[2018-03-14] MEDS: COLLAGENASE 5 GM (UD JAR) TOP SCH ×2 (09:00)
[2018-03-14] MEDS: VITAMIN A & D 5 GM OINT PACKET TOP SCH ×2 (09:24→20:13)
[2018-03-14] MEDS: HYDROCORTISONE 1% 28 GM CR TOP SCH ×2 (09:24→20:13)
[2018-03-14] MEDS: ASCORBIC ACID 500 MG TAB PO SCH (10:16)
[2018-03-14] MEDS: ZINC SULFATE 220 MG CAP PO SCH (10:17)
[2018-03-14] MEDS: DULOXETINE 30 MG CAP DR PO SCH (10:17)
[2018-03-14] MEDS: MULTIVITAMINS THERAPEUTIC TAB PO SCH (10:17)
[2018-03-14] MEDS: FLUCONAZOLE 100 MG TAB PO SCH (10:17)
[2018-03-14] MEDS: MAGNESIUM OXIDE 400 MG TAB PO SCH ×2 (10:17→20:12)
[2018-03-14] MEDS: ALLOPURINOL 100 MG TAB PO SCH (10:17)
[2018-03-14] MEDS: FOLIC ACID 1 MG TAB PO SCH (10:17)
[2018-03-14] MEDS: FAMOTIDINE 20 MG TAB PO SCH ×2 (10:17→20:12)
[2018-03-14] MEDS: GABAPENTIN 100 MG CAP PO SCH ×2 (10:17→20:11)
[2018-03-14] MEDS: PYRIDOXINE 50 MG TAB PO SCH (10:18)
[2018-03-14] MEDS: BACLOFEN 10 MG TAB PO SCH ×3 (10:18→20:12)
[2018-03-14] MEDS: ENOXAPARIN 40 MG/0.4 ML SYG SC SCH (10:19)
[2018-03-14] MEDS: NYSTATIN 15 GM POWDER BTL TOP SCH ×2 (10:20→22:00)
--- NOTE | 2018-03-14 13:32 | PN ---
Date/Time of Note Date/Time of Note DATE: 03/14/18 TIME: 13:30 Assessment/Plan VTE Prophylaxis Risk score (from [facility])>0 risk: 1 SCD applied (from [facility]): No SCD contraindicated: bilateral LE trauma Pharmacological prophylaxis: heparin Lines/Catheters IV Catheter Type (from [facility]): Saline Lock Urinary Cath still in place: Yes Reason Cath still needed: urinary retention Assessment/Plan Problems: (1) Paraplegia Status: Chronic Comment: Regrettably the spleen remains the main events in his medical care. Will to move his lower extremities would not have the heel ulcers that we do have any would heal faster. (2) Decubitus ulcer of right heel, unstageable Status: Chronic Comment: This has actually improved now is at a stage III. Continue with care as per podiatry and infectious disease. Please note podiatry feels that he will need a wound VAC for 2 months (3) Decubitus ulcer of left heel, stage 1 Status: Chronic Comment: Progressing forward nicely. (4) Decubitus ulcer of sacral area Status: Chronic Comment: Clearing nicely with careful attention Qualifiers: Pressure injury stage: stage 3 Qualified Codes: L89.153 - Pressure ulcer of sacral region, stage 3 (5) Diabetes mellitus type 2 in nonobese Status: Chronic Comment: Adequate control (6) Essential hypertension Status: Chronic Comment: Adequate blood pressure control Subjective 24 Hr Interval Summary Free Text/Dictation Patient reports he is without new complaints. Constitutional: no complaints (Denies fevers chills or sweats) Respiratory: no complaints Cardiovascular: no complaints Gastrointestinal: no complaints Genitourinary: no complaints Exam/Review of Systems Vital Signs Vitals Vital Signs Date Temp Pulse Resp B/P (MAP) Pulse Ox O2 O2 Flow FiO2 Time Delivery Rate 03/14/18 98.4 80 16 109/66 97 Room Air 07:55 (80) Intake and Output 03/13/18 03/13/18 03/14/18 1414:59 22:59 06:59 IntakeIntake Total 400 ml 480 ml OutputOutput Total 1200 ml BalanceBalance 400 ml -720 ml Exam Constitutional: alert, oriented Neck: supple, non-tender Respiratory: clear to auscultation, normal air movement Cardiovascular: regular rate and rhythm, nl pulses Extremities: other (Flaccid paralysis of both lower extremities. There is a stage III decubitus on the right heel stage I on the left) Medications Medications Current Medications IV Flush (NS 3 ml) 3 ml PER PROTOCOL IV ; Start 01/25/18 at 15:30 Ondansetron HCl (Zofran Inj) 4 mg Q6H PRN IV NAUSEA AND/OR VOMITING; Start 01/25/18 at 15:30 Acetaminophen (Tylenol Tab) 650 mg Q6H PRN PO PAIN LEVEL 1-3 OR FEVER; Start 01/25/18 at 15:30 Acetaminophen/ Hydrocodone Bitart ([place] (5/325)) 1 tab Q6H PRN PO MODERATE PAIN LEVEL 4-6 Last administered on 03/14/18 10:23; Admin Dose 1 TAB; Start 01/25/18 at 15:30 Allopurinol (Zyloprim) 100 mg DAILY PO Last administered on 03/14/18 10:17; Admin Dose 100 MG; Start 01/26/18 at 09:00 Baclofen (Lioresal) 10 mg TID PO Last administered on 03/14/18 10:18; Admin Dose 10 MG; Start 01/25/18 at 21:00 Carvedilol (Coreg) 12.5 mg BID PO Last administered on 03/12/18 08:41; Admin Dose 12.5 MG; Start 01/25/18 at 21:00 Duloxetine HCl (Cymbalta) 30 mg DAILY PO Last administered on 03/14/18 10:17; Admin Dose 30 MG; Start 01/26/18 at 09:00 Famotidine (Pepcid) 20 mg BID PO Last administered on 03/14/18 10:17; Admin Dose 20 MG; Start 01/25/18 at 21:00 Folic Acid (Folic Acid) 1 mg DAILY PO Last administered on 03/14/18 10:17; Admin Dose 1 MG; Start 01/26/18 at 09:00 Gabapentin (Neurontin) 100 mg BID PO Last administered on 03/14/18 10:17; Admin Dose 100 MG; Start 01/25/18 at 21:00 Magnesium Oxide (Mag-Ox 400) 400 mg BID PO Last administered on 03/14/18 10:17; Admin Dose 400 MG; Start 01/25/18 at 21:00 Nystatin 1 applic BID TOP Last administered on 03/14/18 10:20; Admin Dose 1 APPLIC; Start 01/25/18 at 21:00 Pyridoxine HCl (Vitamin B6) 50 mg DAILY PO Last administered on 03/14/18 1 0:18; Admin Dose 50 MG; Start 01/26/18 at 09:00 Risperidone (Risperdal) 1 mg QHS PO Last administered on 03/13/18 20:13; Admin Dose 1 MG; Start 01/25/18 at 21:00 Zonisamide (Zonegran) 300 mg QHS PO Last administered on 03/13/18 20:11; Admin Dose 300 MG; Start 01/25/18 at 21:00 Eye Lubricant (Artificial Tears Oph) 1 drop Q8 BOTH EYES Last administered on 03/14/18 05:19; Admin Dose 1 DROP; Start 01/25/18 at 22:00 Miscellaneous Information (Pending Santyl Order For Wound Care) This patient woody... PRN PRN XX wound; Start 01/25/18 at 16:30 Vitamin A/Vitamin D (Vitamin A & D Oint) 1 applic BID TOP Last administered on 03/14/18 09:24; Admin Dose 1 APPLIC; Start 01/26/18 at 21:00 Docusate Sodium (Colace) 200 mg BID PO Last administered on 03/13/18 20:11; Admin Dose 200 MG; Start 01/27/18 at 21:00 Enoxaparin Sodium (Lovenox) 40 mg DAILY SC Last administered on 03/14/18 10:1 9; Admin Dose 40 MG; Start 01/28/18 at 09:00 Sodium Hypochlorite (Dakin'S (Dilute 1/40)) 1 applic DAILY IRR Last administered on 03/13/18 09:09; Admin Dose 1 APPLIC; Start 01/27/18 at 18:30 Collagenase (Santyl) 1 applic DAILY TOP Last administered on 03/13/18 09:07; Admin Dose 1 APPLIC; Start 01/27/18 at 17:30 Hydrocortisone (Hydrocortisone 1% Cr) 1 applic BID TOP Last administered on 03/14/18 09:24; Admin Dose 1 APPLIC; Start 01/27/18 at 21:19 Collagenase (Santyl) 1 applic DAILY TOP Last administered on 03/13/18 09:08; Admin Dose 1 APPLIC; Start 02/04/18 at 09:00 Nitroglycerin (Nitroglycerin (Sl Tab) 0.4 Mg) 1 tab Q5M PRN SL ANGINA; Start 02/05/18 at 07:00 Morphine Sulfate (morphine) 6 mg Q4H PRN PO SEVERE PAIN LEVEL 7-10 Last administered on 03/13/18 21:59; Admin Dose 6 MG; Start 02/11/18 at 20:00 Diphenhydramine HCl (Benadryl) 25 mg Q6H PRN IV itching Last administered on 02/20/18at 09:57; Admin Dose 25 MG; Start 02/19/18 at 14:00 Silver Sulfadiazine (Thermazene 1% 25 Gm) 1 applic DAILY TOP Last administered on 03/13/18 09:09; Admin Dose 1 APPLIC; Start 03/07/18 at 09:00 Levofloxacin (Levaquin) 500 mg DAILY@06 PO Last administered on 03/14/18 05:19; Admin Dose 500 MG; Start 03/08/18 at 06:00 Fluconazole (Diflucan) 100 mg DAILY PO Last administered on 03/14/18 10:17; Admin Dose 100 MG; Start 03/08/18 at 12:00 Ampicillin (Ampicillin) 500 mg Q8 PO Last administered on 03/14/18 05:19; Admin Dose 500 MG; Start 03/08/18 at 14:00 Zinc Sulfate (Zinc Sulfate) 220 mg DAILY PO Last administered on 03/14/18 10:17; Admin Dose 220 MG; Start 03/12/18 at 14:30 Ascorbic Acid (Vitamin C) 500 mg DAILY PO Last administered on 03/14/18 10:16; Admin Dose 500 MG; Start 03/12/18 at 14:30 Multivitamins Therapeutic (Theragran) 1 tab DAILY PO Last administered on 03/14/18 10:17; Admin Dose 1 TAB; Start 03/12/18 at 14:30 Magnesium Hydroxide (Milk Of Mag) 30 ml DAILY PRN PO CONSTIPATION; Start 03/13/18 at 13:00 BERTIN EATON MD Mar 14, 2018 13:32
--- NOTE | 2018-03-14 13:44 | CONS ---
Date/Time of Note Date/Time of Note DATE: 03/14/18 TIME: 13:42 Consultation Date/Type/Reason Admit Date/Time Jan 26, 2018 at 08:29 Initial Consult Date SUBJECTIVE: Patient is awake, alert looks comfortable. No acute events over night. VS: stable T: 98.4 LABS: reviewed. Antimicrobials: Fluconazole, ampicillin, and Levaquin Microbiology: Right heel wound culture grew enterococcus and Enterobacter cloacae, sacral wound culture growing enterococcus, strep, staph Sacral wound culture: GRAM STAIN Final EPITHELIAL CELLS 1+ GRAM POS COCCI IN CHAIN 1+ WOUND CULTURE Final Organism 1 VANCO RESISTANT ENTEROCOCCUS QUANTITY 3+ . MULTI DRUG RESISTANT ORGANISM Organism 2 COAGULASE NEGATIVE STAPH QUANTITY 1+ Organism 3 MARKOS ALBICANS QUANTITY 1+ Physical examination: GEN: Well-nourished well-developed middle-aged man who is awake in no distress. HENT: Head atraumatic normocephalic sclera nonicteric vehicle mucosa dry neck is supple Pulm: CTA, rise symmetrical breath sounds diminished bases CV:RRR, S1-S2. ABDOMEN: soft bowel sounds present. Extremities without cyanosis. Rt foot ulcer, currently with wound vac. Assessment: 1. Right foot ulceration status post debridement down to muscle 2. Stage III sacral wound, s/p debridement 03/10/18 3. Paraplegia 4. Hypertension 5. Diabetes Plan: Patient remains stable. Continue current antbx. Wound care per podiatry. Requesting Provider: LIVIA ADAME V. RETOUCHER Exam/Review of Systems Vital Signs Vitals Vital Signs Date Temp Pulse Resp B/P (MAP) Pulse Ox O2 O2 Flow FiO2 Time Delivery Rate 03/14/18 98.4 80 16 109/66 97 Room Air 07:55 (80) Intake and Output 03/13/18 03/13/18 03/14/18 1515:00 23:00 07:00 IntakeIntake Total 400 ml 480 ml OutputOutput Total 1200 ml BalanceBalance 400 ml -720 ml Medications Medications Current Medications IV Flush (NS 3 ml) 3 ml PER PROTOCOL IV ; Start 01/25/18 at 15:30 Ondansetron HCl (Zofran Inj) 4 mg Q6H PRN IV NAUSEA AND/OR VOMITING; Start 01/25/18 at 15:30 Acetaminophen (Tylenol Tab) 650 mg Q6H PRN PO PAIN LEVEL 1-3 OR FEVER; Start 01/25/18 at 15:30 Acetaminophen/ Hydrocodone Bitart ([place] (5/325)) 1 tab Q6H PRN PO MODERATE JOSAFAT N LEVEL 4-6 Last administered on 03/14/18 10:23; Admin Dose 1 TAB; Start 01/25/18 at 15:30 Allopurinol (Zyloprim) 100 mg DAILY PO Last administered on 03/14/18 10:17; Admin Dose 100 MG; Start 01/26/18 at 09:00 Baclofen (Lioresal) 10 mg TID PO Last administered on 03/14/18 10:18; Admin Dose 10 MG; Start 01/25/18 at 21:00 Carvedilol (Coreg) 12.5 mg BID PO Last administered on 03/12/18 08:41; Admin Dose 12.5 MG; Start 01/25/18 at 21:00 Duloxetine HCl (Cymbalta) 30 mg DAILY PO Last administered on 03/14/18 10:17; Admin Dose 30 MG; Start 01/26/18 at 09:00 Famotidine (Pepcid) 20 mg BID PO Last administered on 03/14/18 10:17; Admin Dose 20 MG; Start 01/25/18 at 21:00 Folic Acid (Folic Acid) 1 mg DAILY PO Last administered on 03/14/18 10:17; Admin Dose 1 MG; Start 01/26/18 at 09:00 Gabapentin (Neurontin) 100 mg BID PO Last administered on 03/14/18 10:17; Admin Dose 100 MG; Start 01/25/18 at 21:00 Magnesium Oxide (Mag-Ox 400) 400 mg BID PO Last administered on 03/14/18 10:17; Admin Dose 400 MG; Start 01/25/18 at 21:00 Nystatin 1 applic BID TOP Last administered on 03/14/18 10:20; Admin Dose 1 APPLIC; Start 01/25/18 at 21:00 Pyridoxine HCl (Vitamin B6) 50 mg DAILY PO Last administered on 03/14/18 10:18; Admin Dose 50 MG; Start 01/26/18 at 09:00 Risperidone (Risperdal) 1 mg QHS PO Last administered on 03/13/18 20:13; Admin Dose 1 MG; Start 01/25/18 at 21:00 Zonisamide (Zonegran) 300 mg QHS PO Last administered on 03/13/18 20:11; Admin Dose 300 MG; Start 01/25/18 at 21:00 Eye Lubricant (Artificial Tears Oph) 1 drop Q8 BOTH EYES Last administered on 03/14/18 05:19; Admin Dose 1 DROP; Start 01/25/18 at 22:00 Miscellaneous Information (Pending Santyl Order For Wound Care) This patient woody... PRN PRN XX wound; Start 01/25/18 at 16:30 Vitamin A/Vitamin D (Vitamin A & D Oint) 1 applic BID TOP Last administered on 03/14/18 09:24; Admin Dose 1 APPLIC; Start 01/26/18 at 21:00 Docusate Sodium (Colace) 200 mg BID PO Last administered on 03/13/18 20:11; Admin Dose 200 MG; Start 01/27/18 at 21:00 Enoxaparin Sodium (Lovenox) 40 mg DAILY SC Last administered on 03/14/18 10:19; Admin Dose 40 MG; Start 01/28/18 at 09:00 Sodium Hypochlorite (Dakin'S (Dilute 1/40)) 1 applic DAILY IRR Last administered on 03/13/18 09:09; Admin Dose 1 APPLIC; Start 01/27/18 at 18:30 Collagenase (Santyl) 1 applic DAILY TOP Last administered on 03/13/18 09:07; Admin Dose 1 APPLIC; Start 01/27/18 at 17:30 Hydrocortisone (Hydrocortisone 1% Cr) 1 applic BID TOP Last administered on 03/14/18 09:24; Admin Dose 1 APPLIC; Start 01/27/18 at 21:19 Collagenase (Santyl) 1 applic DAILY TOP Last administered on 03/13/18 09:08; Admin Dose 1 APPLIC; Start 02/04/18 at 09:00 Nitroglycerin (Nitroglycerin (Sl Tab) 0.4 Mg) 1 tab Q5M PRN SL ANGINA; Start 02/05/18 at 07:00 Morphine Sulfate (morphine) 6 mg Q4H PRN PO SEVERE PAIN LEVEL 7-10 Last administered on 03/13/18 21:59; Admin Dose 6 MG; Start 02/11/18 at 20:00 Diphenhydramine HCl (Benadryl) 25 mg Q6H PRN IV itching Last administered on 02/20/18at 09:57; Admin Dose 25 MG; Start 02/19/18 at 14:00 Silver Sulfadiazine (Thermazene 1% 25 Gm) 1 applic DAILY TOP Last administered on 03/13/18at 09:09; Admin Dose 1 APPLIC; Start 03/07/18 at 09:00 Levofloxacin (Levaquin) 500 mg DAILY@06 PO Last administered on 03/14/18 05:19; Admin Dose 500 MG; Start 03/08/18 at 06:00 Fluconazole (Diflucan) 100 mg DAILY PO Last administered on 03/14/18 10:17; Admin Dose 100 MG; Start 03/08/18 at 12:00 Ampicillin (Ampicillin) 500 mg Q8 PO Last administered on 03/14/18at 05:19; Admin Dose 500 MG; Start 03/08/18 at 14:00 Zinc Sulfate (Zinc Sulfate) 220 mg DAILY PO Last administered on 03/14/18at 10:17; Admin Dose 220 MG; Start 03/12/18 at 14:30 Ascorbic Acid (Vitamin C) 500 mg DAILY PO Last administered on 03/14/18 10:16; Admin Dose 500 MG; Start 03/12/18 at 14:30 Multivitamins Therapeutic (Theragran) 1 tab DAILY PO Last administered on 03/14/18at 10:17; Admin Dose 1 TAB; Start 03/12/18 at 14:30 Magnesium Hydroxide (Milk Of Mag) 30 ml DAILY PRN PO CONSTIPATION; Start 03/13/18 at 13:00 LITO CARMONA Mar 14, 2018 13:44
[2018-03-14 14:30] VITALS: BP 114/68; PULSE 76; RESP 16
--- NOTE | 2018-03-14 15:20 | PN ---
Date/Time of Note Date/Time of Note DATE: 03/14/18 TIME: 15:17 Assessment/Plan Lines/Catheters IV Catheter Type (from Nrs): Saline Lock Benavidez in Place (from Nrs): Yes Assessment/Plan Chief Complaint/Hosp Course 1. Stage 4 necrotic wound: Noted with stool contamination s/p repeat excisional debridement 03/10/18; status post I&D&D of right thigh blister -cont local care> Santyl to sacrum > consider follow ups at wound care clinic near where he will be discharged> wound VAC to sacrum-nursing to track tube in order to prevent equipment related skin damage -Continue Silver ointment to right thigh blister (S/P I&D) -frequent turning and rge-nytlukd-fudswdizd with patient importance of frequent turning however per nursing patient always returns to his back after being repositioned-once again reinforced importance of offloading -low air loss mattress -vitamin c -short term zinc -optimize nutrition -skin protection against devices 2. Bilateral lower extremity ulcers: with wound vac -As above -Per podiatry 3. Hypochromic microcytic anemia: -Monitor and transfuse as needed 4. Depression: -Psychiatric optimization 5. Paraplegia -Supportive 6. Hypertension -nutrition and medication optimization Thank you. Patient seen and examined in collaboration with Dr. Brian Angulo. Subjective 24 Hr Interval Summary Feels well. Continues to have wound VAC on sacrum and right heel. Minimal drainage from sacral wound. No fevers, chills, sob, congested cough, cp, palpitations, woody, dizziness, nausea, vomiting, diarrhea, dysuria. Exam/Review of Systems Vital Signs Vitals Vital Signs Date Temp Pulse Resp B/P (MAP) Pulse Ox O2 O2 Flow FiO2 Time Delivery Rate 03/14/18 98.4 76 16 114/68 97 Room Air 14:30 (83) Intake and Output 03/13/18 03/13/18 03/14/18 1515:00 23:00 07:00 IntakeIntake Total 400 ml 480 ml OutputOutput Total 1200 ml BalanceBalance 400 ml -720 ml Exam Free Text/Dictation Constitutional: alert, oriented Psych: nl mood/affect, anxiety (Minimal) Head: normocephalic, atraumatic Eyes: nl conjunctiva, EOMI, nl sclera ENMT: nl external ears & nose, nl lips & teeth, mucosa pink and moist Neck: supple, non-tender Respiratory: normal air movement; No congested cough Cardiovascular: regular rate and rhythm; No edema Gastrointestinal: soft, non-tender; No distended Musculoskeletal: nl extremities to inspection; No nl gait and stance Extremities: normal pulses; No edema Neurological: nl mental status, nl speech Skin: nl turgor, Sacral wound: no periwound erythema, minimal drainage (serosanguineous), wound vac; wound vac to lower leg; right thigh skin blister (clean, no drainage/periwound erythema) FERNANDO DÍAZ NP Mar 14, 2018 15:20
--- NOTE | 2018-03-14 18:33 | NUR ---
changed the wound vac two times already since this morning.patient is saying that ''it is not working,nothing come out''Bethany also chaged the wound vac and she talk with the patient regarding this.turned the patient q 2 hours .gave pain medication as reqested.call light within reach.bed alarm on.patient had loose stool two times and held the stool softner this morning.he is resting comfortably in bed.
[2018-03-14 20:00] VITALS: BP 97/57; PULSE 77; RESP 17
[2018-03-14] MEDS: RISPERIDONE 1 MG TAB PO SCH (20:13)
[2018-03-14 20:17] VITALS: BP 115/73; PULSE 70
[2018-03-14] MEDS: ZONISAMIDE 100 MG CAP PO SCH (20:17)
[2018-03-14] MEDS: morphine LIQ (10 MG/5 ML) CUP PO PRN (22:00)
[2018-03-15 02:00] VITALS: BP 106/57; PULSE 67; RESP 17
[2018-03-15] MEDS: HYDROCODONE/APAP (5/325) TAB PO PRN ×3 (02:11→16:42)
[2018-03-15] MEDS: ARTIFICIAL TEARS 15 ML OPH BOTH EYES SCH ×3 (05:28→21:40)
[2018-03-15] MEDS: LEVOFLOXACIN 500 MG TAB PO SCH (05:28)
[2018-03-15] MEDS: AMPICILLIN 500 MG CAP PO SCH ×3 (05:28→21:39)
[2018-03-15] MEDS: morphine LIQ (10 MG/5 ML) CUP PO PRN (05:31)
--- NOTE | 2018-03-15 05:35 | NUR ---
RN Notes Patient had no change in condition overnight. Vital signs remained stable; pain adequately managed with PRN [place] and Morphine. Patient was turned and repositioned every two hours and as needed for comfort. Patient kept off his back as ordered by MD. Incontinent care provided as well as wound care. Hourly rounding done; no injuries/falls during shift. Bed kept at lowest position with bed alarm activated for safety. Will continue to monitor and endorse accordingly to oncoming RN.
[2018-03-15 08:18] VITALS: BP 109/59; PULSE 76; RESP 19
[2018-03-15] MEDS: SILVER SULFADIAZINE 1% 25 GM CR TOP SCH (09:00)
[2018-03-15] MEDS: SODIUM HYPOCHLORITE (1/40) 1 APPLIC BTL IRR SCH (09:00)
[2018-03-15] MEDS: COLLAGENASE 5 GM (UD JAR) TOP SCH ×2 (09:00)
[2018-03-15] MEDS: BALSAM PERU/CASTOR OIL 60 GM TUBE TOP SCH (09:00)
[2018-03-15] MEDS: ASCORBIC ACID 500 MG TAB PO SCH (09:35)
[2018-03-15] MEDS: DULOXETINE 30 MG CAP DR PO SCH (09:35)
[2018-03-15] MEDS: ALLOPURINOL 100 MG TAB PO SCH (09:35)
[2018-03-15] MEDS: FAMOTIDINE 20 MG TAB PO SCH ×2 (09:35→21:39)
[2018-03-15] MEDS: MULTIVITAMINS THERAPEUTIC TAB PO SCH (09:36)
[2018-03-15] MEDS: MAGNESIUM OXIDE 400 MG TAB PO SCH ×2 (09:36→21:39)
[2018-03-15] MEDS: HYDROCORTISONE 1% 28 GM CR TOP SCH ×2 (09:36→21:42)
[2018-03-15] MEDS: ZINC SULFATE 220 MG CAP PO SCH (09:36)
[2018-03-15] MEDS: VITAMIN A & D 5 GM OINT PACKET TOP SCH ×2 (09:36→21:40)
[2018-03-15] MEDS: PYRIDOXINE 50 MG TAB PO SCH (09:36)
[2018-03-15] MEDS: FLUCONAZOLE 100 MG TAB PO SCH (09:37)
[2018-03-15] MEDS: BACLOFEN 10 MG TAB PO SCH ×3 (09:38→21:39)
[2018-03-15] MEDS: GABAPENTIN 100 MG CAP PO SCH ×2 (09:38→21:39)
[2018-03-15] MEDS: NYSTATIN 15 GM POWDER BTL TOP SCH ×2 (09:39→21:48)
[2018-03-15] MEDS: ENOXAPARIN 40 MG/0.4 ML SYG SC SCH (09:39)
[2018-03-15] MEDS: DOCUSATE SODIUM 100 MG CAP PO SCH ×2 (09:42→21:42)
[2018-03-15] MEDS: FOLIC ACID 1 MG TAB PO SCH (09:56)
--- NOTE | 2018-03-15 12:36 | CONS ---
Date/Time of Note Date/Time of Note DATE: 03/15/18 TIME: 12:36 Consultation Date/Type/Reason Admit Date/Time Jan 26, 2018 at 08:29 Initial Consult Date SUBJECTIVE: Patient is awake, alert looks comfortable. VS: stable T: 97.5 LABS: reviewed. Antimicrobials: Fluconazole, ampicillin, and Levaquin Microbiology: Right heel wound culture grew enterococcus and Enterobacter cloacae, sacral wound culture growing enterococcus, strep, staph Sacral wound culture: GRAM STAIN Final EPITHELIAL CELLS 1+ GRAM POS COCCI IN CHAIN 1+ WOUND CULTURE Final Organism 1 VANCO RESISTANT ENTEROCOCCUS QUANTITY 3+ . MULTI DRUG RESISTANT ORGANISM Organism 2 COAGULASE NEGATIVE STAPH QUANTITY 1+ Organism 3 MARKOS ALBICANS QUANTITY 1+ Physical examination: GEN: Well-nourished well-developed middle-aged man who is awake in no distress. HENT: Head atraumatic normocephalic sclera nonicteric vehicle mucosa dry neck is supple Pulm: CTA, rise symmetrical breath sounds diminished bases CV:RRR, S1-S2. ABDOMEN: soft bowel sounds present. Extremities without cyanosis. Rt foot ulcer, currently with wound vac. Assessment: 1. Right foot ulceration status post debridement down to muscle 2. Stage III sacral wound, s/p debridement 03/10/18 3. Paraplegia 4. Hypertension 5. Diabetes Plan: Patient remains stable. Continue current antbx. Wound care per podiatry. Requesting Provider: LIVIA ADAME V. RD LAB TECHNICIAN Exam/Review of Systems Vital Signs Vitals Vital Signs Date Temp Pulse Resp B/P (MAP) Pulse Ox O2 O2 Flow FiO2 Time Delivery Rate 03/15/18 97.5 76 19 109/59 99 08:18 (76) 03/14/18 Room Air 14:30 Intake and Output 03/14/18 03/14/18 03/15/18 1515:00 23:00 07:00 IntakeIntake Total 350 ml 200 ml 440 ml OutputOutput Total 400 ml 1400 ml BalanceBalance 350 ml -200 ml -960 ml Medications Medications Current Medications IV Flush (NS 3 ml) 3 ml PER PROTOCOL IV ; Start 01/25/18 at 15:30 Ondansetron HCl (Zofran Inj) 4 mg Q6H PRN IV NAUSEA AND/OR VOMITING; Start 01/25/18 at 15:30 Acetaminophen (Tylenol Tab) 650 mg Q6H PRN PO PAIN LEVEL 1-3 OR FEVER; Start 01/25/18 at 15:30 Acetaminophen/ Hydrocodone Bitart ([place] (5/325)) 1 tab Q6H PRN PO MODERATE PAIN LEVEL 4-6 Last administered on 03/15/18 09:55; Admin Dose 1 TAB; Start 01/25/18 at 15:30 Allopurinol (Zyloprim) 100 mg DAILY PO Last administered on 03/15/18 09:35; Admin Dose 100 MG; Start 01/26/18 at 09:00 Baclofen (Lioresal) 10 mg TID PO Last administered on 03/15/18 09:38; Admin Dose 10 MG; Start 01/25/18 at 21:00 Carvedilol (Coreg) 12.5 mg BID PO Last administered on 03/14/18 20:17; Admin Dose 12.5 MG; Start 01/25/18 at 21:00 Duloxetine HCl (Cymbalta) 30 mg DAILY PO Last administered on 03/15/18 09:35; Admin Dose 30 MG; Start 01/26/18 at 09:00 Famotidine (Pepcid) 20 mg BID PO Last administered on 03/15/18 09:35; Admin Dose 20 MG; Start 01/25/18 at 21:00 Folic Acid (Folic Acid) 1 mg DAILY PO Last administered on 03/15/18 09:56; Admin Dose 1 MG; Start 01/26/18 at 09:00 Gabapentin (Neurontin) 100 mg BID PO Last administered on 03/15/18 09:38; Admin Dose 100 MG; Start 01/25/18 at 21:00 Magnesium Oxide (Mag-Ox 400) 400 mg BID PO Last administered on 03/15/18 09:36; Admin Dose 400 MG; Start 01/25/18 at 21:00 Nystatin 1 applic BID TOP Last administered on 03/15/18 09:39; Admin Dose 1 APPLIC; Start 01/25/18 at 21:00 Pyridoxine HCl (Vitamin B6) 50 mg DAILY PO Last administered on 03/15/18 09:36; Admin Dose 50 MG; Start 01/26/18 at 09:00 Risperidone (Risperdal) 1 mg QHS PO Last administered on 03/14/18 20:13; Admin Dose 1 MG; Start 01/25/18 at 21:00 Zonisamide (Zonegran) 300 mg QHS PO Last administered on 03/14/18 20:17; Admin Dose 300 MG; Start 01/25/18 at 21:00 Eye Lubricant (Artificial Tears Oph) 1 drop Q8 BOTH EYES Last administered on 03/15/18 05:28; Admin Dose 1 DROP; Start 01/25/18 at 22:00 Miscellaneous Information (Pending Santyl Order For Wound Care) This patient woody... PRN PRN XX wound; Start 01/25/18 at 16:30 Vitamin A/Vitamin D (Vitamin A & D Oint) 1 applic BID TOP Last administered on 03/15/18 09:36; Admin Dose 1 APPLIC; Start 01/26/18 at 21:00 Docusate Sodium (Colace) 200 mg BID PO Last administered on 03/15/18 09:42; Admin Dose 200 MG; Start 01/27/18 at 21:00 Enoxaparin Sodium (Lovenox) 40 mg DAILY SC Last administered on 03/15/18 09:39; Admin Dose 40 MG; Start 01/28/18 at 09:00 Sodium Hypochlorite (Dakin'S (Dilute 40)) 1 applic DAILY IRR Last administered on 03/13/18 09:09; Admin Dose 1 APPLIC; Start 01/27/18 at 18:30 Collagenase (Santyl) 1 applic DAILY TOP Last administered on 03/13/18 09:07; Admin Dose 1 APPLIC; Start 01/27/18 at 17:30 Hydrocortisone (Hydrocortisone 1% Cr) 1 applic BID TOP Last administered on 03/15/18 09:36; Admin Dose 1 APPLIC; Start 01/27/18 at 21:19 Collagenase (Santyl) 1 applic DAILY TOP Last administered on 03/13/18 09:08; Admin Dose 1 APPLIC; Start 02/04/18 at 09:00 Nitroglycerin (Nitroglycerin (Sl Tab) 0.4 Mg) 1 tab Q5M PRN SL ANGINA; Start 02/05/18 at 07:00 Morphine Sulfate (morphine) 6 mg Q4H PRN PO SEVERE PAIN LEVEL 7-10 Last administered on 03/15/18 05:31; Admin Dose 6 MG; Start 02/11/18 at 20:00 Diphenhydramine HCl (Benadryl) 25 mg Q6H PRN IV itching Last administered on 02/20/18 09:57; Admin Dose 25 MG; Start 02/19/18 at 14:00 Silver Sulfadiazine (Thermazene 1% 25 Gm) 1 applic DAILY TOP Last administered on 03/13/18 09:09; Admin Dose 1 APPLIC; Start 03/07/18 at 09:00 Levofloxacin (Levaquin) 500 mg DAILY@06 PO Last administered on 03/15/18 05:28; Admin Dose 500 MG; Start 03/08/18 at 06:00 Fluconazole (Diflucan) 100 mg DAILY PO Last administered on 03/15/18 09:37; Admin Dose 100 MG; Start 03/08/18 at 12:00 Ampicillin (Ampicillin) 500 mg Q8 PO Last administered on 03/15/18 05:28; Admi n Dose 500 MG; Start 03/08/18 at 14:00 Zinc Sulfate (Zinc Sulfate) 220 mg DAILY PO Last administered on 03/15/18 09:36; Admin Dose 220 MG; Start 03/12/18 at 14:30 Ascorbic Acid (Vitamin C) 500 mg DAILY PO Last administered on 03/15/18 09:35; Admin Dose 500 MG; Start 03/12/18 at 14:30 Multivitamins Therapeutic (Theragran) 1 tab DAILY PO Last administered on 03/15/18 09:36; Admin Dose 1 TAB; Start 03/12/18 at 14:30 Magnesium Hydroxide (Milk Of Mag) 30 ml DAILY PRN PO CONSTIPATION; Start 03/13/18 at 13:00 LITO CARMONA Mar 15, 2018 12:36
--- NOTE | 2018-03-15 13:09 | PN ---
Date/Time of Note Date/Time of Note DATE: 03/15/18 TIME: 13:03 Assessment/Plan VTE Prophylaxis Risk score (from [facility])>0 risk: 1 SCD applied (from [facility]): No SCD contraindicated: bilateral LE trauma Pharmacological prophylaxis: LMWH Lines/Catheters IV [facility]from [facility] Saline Lock Urinary Cath still in place: Yes Reason Cath still needed: urinary retention Assessment/Plan Problems: (1) Paraplegia Status: Chronic Comment: Persistent issue which regrettably cannot be corrected (2) Decubitus ulcer of left heel, stage 1 Status: Chronic Comment: Progressing adequately (3) Decubitus ulcer of right heel, unstageable Status: Chronic Comment: Has improved somewhat but requires wound VAC (4) Decubitus ulcer of sacral area Status: Chronic Comment: Has wound VAC in place Qualifiers: Pressure injury stage: stage 3 Qualified Codes: L89.153 - Pressure ulcer of sacral region, stage 3 (5) Diabetes mellitus type 2 in nonobese Status: Chronic Comment: Adequate control (6) Essential hypertension Status: Chronic Comment: Adequate control (7) Dysthymia Status: Chronic Comment: While he is on medicines is still a severe issue Subjective 24 Hr Interval Summary Free Text/Dictation Patient reports that he is not willing to get up and get around out of the bed. He is reports is because of the wound vacs and is been told to offload from his sacral area. Constitutional: no complaints Exam/Review of Systems Vital Signs Vitals Vital Signs Date Temp Pulse Resp B/P (MAP) Pulse Ox O2 O2 Flow FiO2 Time Delivery Rate 03/15/18 97.5 76 19 109/59 99 08:18 (76) 03/14/18 Room Air 14:30 Intake and Output 03/14/18 03/14/18 03/15/18 1414:59 22:59 06:59 IntakeIntake Total 350 ml 200 ml 440 ml OutputOutput Total 400 ml 1400 ml BalanceBalance 350 ml -200 ml -960 ml Exam Constitutional: alert, oriented Neck: supple, non-tender Respiratory: clear to auscultation, normal air movement Cardiovascular: regular rate and rhythm, nl pulses Medications Medications Current Medications IV Flush (NS 3 ml) 3 ml PER PROTOCOL IV ; Start 01/25/18 at 15:30 Ondansetron HCl (Zofran Inj) 4 mg Q6H PRN IV NAUSEA AND/OR VOMITING; Start 01/25/18 at 15:30 Acetaminophen (Tylenol Tab) 650 mg Q6H PRN PO PAIN LEVEL 1-3 OR FEVER; Start 01/25/18 at 15:30 Acetaminophen/ Hydrocodone Bitart ([place] (5/325)) 1 tab Q6H PRN PO MODERATE PAIN LEVEL 4-6 Last administered on 03/15/18 09:55; Admin Dose 1 TAB; Start 01/25/18 at 15:30 Allopurinol (Zyloprim) 100 mg DAILY PO Last administered on 03/15/18 09:35; Admin Dose 100 MG; Start 01/26/18 at 09:00 Baclofen (Lioresal) 10 mg TID PO Last administered on 03/15/18 09:38; Admin Dose 10 MG; Start 01/25/18 at 21:00 Carvedilol (Coreg) 12.5 mg BID PO Last administered on 03/14/18 20:17; Admin Dose 12.5 MG; Start 01/25/18 at 21:00 Duloxetine HCl (Cymbalta) 30 mg DAILY PO Last administered on 03/15/18 09:35; Admin Dose 30 MG; Start 01/26/18 at 09:00 Famotidine (Pepcid) 20 mg BID PO Last administered on 03/15/18 09:35; Admin Dose 20 MG; Start 01/25/18 at 21:00 Folic Acid (Folic Acid) 1 mg DAILY PO Last administered on 03/15/18 09:56; Admin Dose 1 MG; Start 01/26/18 at 09:00 Gabapentin (Neurontin) 100 mg BID PO Last administered on 03/15/18 09:38; Admin Dose 100 MG; Start 01/25/18 at 21:00 Magnesium Oxide (Mag-Ox 400) 400 mg BID PO Last administered on 03/15/18 09:36; Admin Dose 400 MG; Start 01/25/18 at 21:00 Nystatin 1 applic BID TOP Last administered on 03/15/18 09:39; Admin Dose 1 APPLIC; Start 01/25/18 at 21:00 Pyridoxine HCl (Vitamin B6) 50 mg DAILY PO Last administered on 03/15/18 09:36; Admin Dose 50 MG; Start 01/26/18 at 09:00 Risperidone (Risperdal) 1 mg QHS PO Last administered on 03/14/18 20:13; Admin Dose 1 MG; Start 01/25/18 at 21:00 Zonisamide (Zonegran) 300 mg QHS PO Last administered on 03/14/18 20:17; Admin Dose 300 MG; Start 01/25/18 at 21:00 Eye Lubricant (Artificial Tears Oph) 1 drop Q8 BOTH EYES Last administered on 03/15/18 05:28; Admin Dose 1 DROP; Start 01/25/18 at 22:00 Miscellaneous Information (Pending Santyl Order For Wound Care) This patient woody... PRN PRN XX wound; Start 01/25/18 at 16:30 Vitamin A/Vitamin D (Vitamin A & D Oint) 1 applic BID TOP Last administered on 03/15/18 09:36; Admin Dose 1 APPLIC; Start 01/26/18 at 21:00 Docusate Sodium (Colace) 200 mg BID PO Last administered on 03/15/18 09:42; Admin Dose 200 MG; Start 01/27/18 at 21:00 Enoxaparin Sodium (Lovenox) 40 mg DAILY SC Last administered on 03/15/18 09:39; Admin Dose 40 MG; Start 01/28/18 at 09:00 Sodium Hypochlorite (Dakin'S (Dilute 1/40)) 1 applic DAILY IRR Last administered on 03/13/18 09:09; Admin Dose 1 APPLIC; Start 01/27/18 at 18:30 Collagenase (Santyl) 1 applic DAILY TOP Last administered on 03/13/18 09:07; Admin Dose 1 APPLIC; Start 01/27/18 at 17:30 Hydrocortisone (Hydrocortisone 1% Cr) 1 applic BID TOP Last administered on 03/15/18 09:36; Admin Dose 1 APPLIC; Start 01/27/18 at 21:19 Collagenase (Santyl) 1 applic DAILY TOP Last administered on 03/13/18 09:08; Admin Dose 1 APPLIC; Start 02/04/18 at 09:00 Nitroglycerin (Nitroglycerin (Sl Tab) 0.4 Mg) 1 tab Q5M PRN SL ANGINA; Start 02/05/18 at 07:00 Morphine Sulfate (morphine) 6 mg Q4H PRN PO SEVERE PAIN LEVEL 7-10 Last administered on 03/15/18 05:31; Admin Dose 6 MG; Start 02/11/18 at 20:00 Diphenhydramine HCl (Benadryl) 25 mg Q6H PRN IV itching Last administered on 02/20/18 09:57; Admin Dose 25 MG; Start 02/19/18 at 14:00 Silver Sulfadiazine (Thermazene 1% 25 Gm) 1 applic DAILY TOP Last administered on 03/13/18 09:09; Admin Dose 1 APPLIC; Start 03/07/18 at 09:00 Levofloxacin (Levaquin) 500 mg DAILY@06 PO Last administered on 03/15/18 05:28; Admin Dose 500 MG; Start 03/08/18 at 06:00 Fluconazole (Diflucan) 100 mg DAILY PO Last administered on 03/15/18 09:37; Admin Dose 100 MG; Start 03/08/18 at 12:00 Ampicillin (Ampicillin) 500 mg Q8 PO Last administered on 03/15/18 05:28; Admin Dose 500 MG; Start 03/08/18 at 14:00 Zinc Sulfate (Zinc Sulfate) 220 mg DAILY PO Last administered on 03/15/18 09:36; Admin Dose 220 MG; Start 03/12/18 at 14:30 Ascorbic Acid (Vitamin C) 500 mg DAILY PO Last administered on 03/15/18 09:35; Admin Dose 500 MG; Start 03/12/18 at 14:30 Multivitamins Therapeutic (Theragran) 1 tab DAILY PO Last administered on 03/15/18 09:36; Admin Dose 1 TAB; Start 03/12/18 at 14:30 Magnesium Hydroxide (Milk Of Mag) 30 ml DAILY PRN PO CONSTIPATION; Start 03/13/18 at 13:00 BERTIN EATON MD Mar 15, 2018 13:09
--- NOTE | 2018-03-15 14:09 | PN ---
Date/Time of Note Date/Time of Note DATE: 03/15/18 TIME: 13:59 Assessment/Plan Lines/Catheters IV Catheter Type (from Nrs): Saline Lock Benavidez in Place (from Nrs): Yes Assessment/Plan Chief Complaint/Hosp Course 1. Stage 4 necrotic wound: Noted with stool contamination s/p repeat excisional debridement 03/10/18; status post I&D&D of right thigh blister -cont local care> Santyl to sacrum > consider follow ups at wound care clinic near where he will be discharged> wound VAC to sacrum-nursing to track tube in order to prevent equipment related skin damage -Continue Silver ointment to right thigh blister (S/P I&D) -frequent turning and [id number]-qrfvwtddy with patient importance of frequent turning however per nursing patient always returns to his back after being repositioned-once again reinforced importance of offloading -low air loss mattress -vitamin c -short term zinc -optimize nutrition -skin protection against devices 2. Bilateral lower extremity ulcers: with wound vac -As above -Per podiatry 3. Hypochromic microcytic anemia: -Monitor and transfuse as needed 4. Depression: -Psychiatric optimization 5. Paraplegia -Supportive 6. Hypertension -nutrition and medication optimization 7. Multiple stools: -stool studies if persistent -recommend probiotics Thank you. Patient seen and examined in collaboration with Dr. Brian Angulo. Subjective 24 Hr Interval Summary Feels well. Wound vac continuous. No fevers, chills, sob, congested cough, cp, palpitations, woody, dizziness, n/v/d/dysuria. Exam/Review of Systems Vital Signs Vitals Vital Signs Date Temp Pulse Resp B/P (MAP) Pulse Ox O2 O2 Flow FiO2 Time Delivery Rate 03/15/18 97.5 76 19 109/59 99 08:18 (76) 03/14/18 Room Air 14:30 Intake and Output 03/14/18 03/14/18 03/15/18 1515:00 23:00 07:00 IntakeIntake Total 350 ml 200 ml 440 ml OutputOutput Total 400 ml 1400 ml BalanceBalance 350 ml -200 ml -960 ml Exam Free Text/Dictation Constitutional: alert, oriented Psych: nl mood/affect, anxiety (Minimal) Head: normocephalic, atraumatic Eyes: nl conjunctiva, EOMI, nl sclera ENMT: nl external ears & nose, nl lips & teeth, mucosa pink and moist Neck: supple, non-tender Respiratory: normal air movement; No congested cough Cardiovascular: regular rate and rhythm; No edema Gastrointestinal: soft, non-tender; No distended Musculoskeletal: nl extremities to inspection; No nl gait and stance Extremities: normal pulses; No edema Neurological: nl mental status, nl speech Skin: nl turgor, Sacral wound: no periwound erythema, minimal drainage (serosanguineous), wound vac; wound vac to lower leg; right thigh skin blister (clean, no drainage/periwound erythema) FERNANDO DÍAZ NP Mar 15, 2018 14:09
[2018-03-15 15:18] VITALS: BP 98/63; PULSE 82; RESP 19
[2018-03-15 15:55] VITALS: BP 102/68; PULSE 62
--- NOTE | 2018-03-15 18:38 | NUR ---
all needs met.no acute events.turned the patient q 2 hours.changed the dressing as ordered.gave pain medication as reqested.call light within reach.bed alarm on.he is resting comfortably in bed.turned only left and right side.encouraged the patient to stay on those possition.
[2018-03-15 20:06] VITALS: BP 103/55; PULSE 96; RESP 18
[2018-03-15] MEDS: RISPERIDONE 1 MG TAB PO SCH (21:39)
[2018-03-15] MEDS: ZONISAMIDE 100 MG CAP PO SCH (21:39)
[2018-03-16 02:52] VITALS: BP 111/68; PULSE 89; RESP 20
[2018-03-16] MEDS: HYDROCODONE/APAP (5/325) TAB PO PRN ×3 (04:06→19:40)
--- NOTE | 2018-03-16 05:30 | NUR ---
End of Shift RN Note: No acute changes noted during my shift. Pt remains AAOx4, denies SOB, and shows no signs of acute distress. Pt tunred Q1.5 hour to prevent further skin breakdown. Scral wound vac dressing changed x1 due to soiling. Incontinent care provided as needed. All needs tended to. HOurly rounding provided. Fall precautions implemented and continued. Will endorse plan of care to next shift for continuity of care.
[2018-03-16] MEDS: AMPICILLIN 500 MG CAP PO SCH ×2 (06:47→13:15)
[2018-03-16] MEDS: LEVOFLOXACIN 500 MG TAB PO SCH (06:47)
[2018-03-16] MEDS: ARTIFICIAL TEARS 15 ML OPH BOTH EYES SCH ×3 (06:47→21:31)
[2018-03-16 08:41] VITALS: BP 103/57; PULSE 76; RESP 18
[2018-03-16] MEDS: ENOXAPARIN 40 MG/0.4 ML SYG SC SCH (08:47)
[2018-03-16] MEDS: FOLIC ACID 1 MG TAB PO SCH (08:48)
[2018-03-16] MEDS: BACLOFEN 10 MG TAB PO SCH ×3 (08:48→20:08)
[2018-03-16] MEDS: DULOXETINE 30 MG CAP DR PO SCH (08:48)
[2018-03-16] MEDS: ASCORBIC ACID 500 MG TAB PO SCH (08:48)
[2018-03-16] MEDS: VITAMIN A & D 5 GM OINT PACKET TOP SCH ×2 (08:48→20:07)
[2018-03-16] MEDS: FLUCONAZOLE 100 MG TAB PO SCH (08:48)
[2018-03-16] MEDS: ZINC SULFATE 220 MG CAP PO SCH (08:48)
[2018-03-16] MEDS: MULTIVITAMINS THERAPEUTIC TAB PO SCH (08:48)
[2018-03-16] MEDS: ALLOPURINOL 100 MG TAB PO SCH (08:48)
[2018-03-16] MEDS: PYRIDOXINE 50 MG TAB PO SCH (08:48)
[2018-03-16] MEDS: FAMOTIDINE 20 MG TAB PO SCH ×2 (08:48→20:07)
[2018-03-16] MEDS: MAGNESIUM OXIDE 400 MG TAB PO SCH ×2 (08:48→20:07)
[2018-03-16] MEDS: GABAPENTIN 100 MG CAP PO SCH ×2 (08:48→20:08)
[2018-03-16] MEDS: DOCUSATE SODIUM 100 MG CAP PO SCH ×2 (08:49→20:07)
[2018-03-16] MEDS: HYDROCORTISONE 1% 28 GM CR TOP SCH ×2 (08:50→20:08)
[2018-03-16] MEDS: BALSAM PERU/CASTOR OIL 60 GM TUBE TOP SCH (08:57)
[2018-03-16] MEDS: COLLAGENASE 5 GM (UD JAR) TOP SCH ×2 (08:57)
[2018-03-16] MEDS: SILVER SULFADIAZINE 1% 25 GM CR TOP SCH (08:57)
[2018-03-16] MEDS: SODIUM HYPOCHLORITE (1/40) 1 APPLIC BTL IRR SCH (08:58)
[2018-03-16] MEDS: NYSTATIN 15 GM POWDER BTL TOP SCH ×2 (09:02→20:08)
--- NOTE | 2018-03-16 10:29 | PN ---
Date/Time of Note Date/Time of Note DATE: 03/16/18 TIME: 10:27 Assessment/Plan Lines/Catheters IV Catheter Type (from Nrs): Saline Lock Benavidez in Place (from Nrs): Yes Assessment/Plan Chief Complaint/Hosp Course 1. Stage 4 necrotic wound: s/p repeat excisional debridement 03/10/18; status post I&D&D of right thigh blister -cont local care> Santyl to sacrum > consider follow ups at wound care clinic near where he will be discharged> wound VAC to sacrum-nursing to track tube in order to prevent equipment related skin damage -Continue Silver ointment to right thigh blister (S/P I&D) -frequent turning and dza-xulbdoq-xtaggemxw with patient importance of frequent turning however per nursing patient always returns to his back after being repositioned-once again reinforced importance of offloading -low air loss mattress -vitamin c -short term zinc -optimize nutrition -skin protection against devices -further debridement prn 2. Bilateral lower extremity ulcers: with wound vac -As above -Per podiatry 3. Hypochromic microcytic anemia: -Monitor and transfuse as needed 4. Depression: -Psychiatric optimization 5. Paraplegia -Supportive 6. Hypertension -nutrition and medication optimization 7. Multiple stools: -stool studies if persistent -recommend probiotics Thank you. Patient seen and examined in collaboration with Dr. Brian Angulo. Subjective 24 Hr Interval Summary Feels well. Wound vac with min drainage. No fevers, chills, sob, congested cough, cp, palpitations, woody, dizziness, n/v/d/dysuria. Exam/Review of Systems Vital Signs Vitals Vital Signs Date Temp Pulse Resp B/P (MAP) Pulse Ox O2 O2 Flow FiO2 Time Delivery Rate 03/16/18 98.1 76 18 103/57 98 08:41 (72) 03/14/18 Room Air 14:30 Intake and Output 03/15/18 03/15/18 03/16/18 1515:00 23:00 07:00 IntakeIntake Total 1540 ml 250 ml OutputOutput Total 0 ml 1250 ml 700 ml BalanceBalance 0 ml 290 ml -450 ml Exam Free Text/Dictation Constitutional: alert, oriented Psych: nl mood/affect, anxiety (Minimal) Head: normocephalic, atraumatic Eyes: nl conjunctiva, EOMI, nl sclera ENMT: nl external ears & nose, nl lips & teeth, mucosa pink and moist Neck: supple, non-tender Respiratory: normal air movement; No congested cough Cardiovascular: regular rate and rhythm; No edema Gastrointestinal: soft, non-tender; No distended Musculoskeletal: nl extremities to inspection; No nl gait and stance Extremities: normal pulses; No edema Neurological: nl mental status, nl speech Skin: nl turgor, Sacral wound: no periwound erythema, minimal drainage (serosanguineous), wound vac; wound vac to lower leg; right thigh skin blister (clean, no drainage/periwound erythema) FERNANDO DÍAZ NP Mar 16, 2018 10:29
--- NOTE | 2018-03-16 13:49 | NUR ---
WOUND EVALUATION Wound consult received for possible non-blanchable redness to left lower ischium. Upon evaluation, patient has extensive perirectal fungal dermatitis extending to the gluteal folds and cleft. There is a small red isolated path to the left ischium which is diffuse and sluggishly blanching consistent with moisture associated dermatitis. Patient was seen and evaluated with director regulatory affairs, primary RN, as well as primary MD at the bedside. - Recommend to continue implementing nystatin powder. MD to evaluate for further oral antifungals. Cleanse skin thoroughly with mild soap and water and pat dry. Apply Nystatin powder to all affected areas and thick layer of skin barrier cream. - Continue turning and repositioning every 2 hours and PRN per protocol - Continue with previous wound care order recommendations Patient was seen and evaluated with RN, MONTSE Thank you Eileen Steiner, MSN, RN, CCRN, [facility]
--- NOTE | 2018-03-16 14:50 | CONS ---
Date/Time of Note Date/Time of Note DATE: 03/16/18 TIME: 14:49 Assessment/Plan Assessment/Plan Hospital Course Alert, feels good denies nausea vomiting diarrhea, no dysuria Antimicrobials: Fluconazole ampicillin Levaquin Microbiology: Right heel wound culture grew enterococcus and Enterobacter cloacae, Sacral wound culture grew VRE, Perla albicans, coag negative staph Physical examination: Well-nourished well-developed middle-aged man who is awake in no distress. Head atraumatic normocephalic sclera nonicteric vehicle mucosa dry neck is supple chest rise symmetrical breath sounds diminished bases heart S1-S2. Abdomen soft bowel sounds present. Extremities without cyanosis. Assessment: 1. Right foot ulceration status post debridement down to muscle 2. Stage III sacral wound, s/p debridement 03/10/18 3. Paraplegia 4. Hypertension 5. Diabetes Plan: Patient remains stable, completed antibiotics, continue wound care per to rgical and podiatry rec-s. Consultation Date/Type/Reason Admit Date/Time Jan 26, 2018 at 08:29 Initial Consult Date 02/12/18 Type of Consult id Requesting Provider: LIVIA ADAME V. DATA PROCESSING CONTROL CLERK Exam/Review of Systems Vital Signs Vitals Vital Signs Date Temp Pulse Resp B/P (MAP) Pulse Ox O2 O2 Flow FiO2 Time Delivery Rate 03/16/18 98.1 76 18 103/57 98 08:41 (72) 03/14/18 Room Air 14:30 Intake and Output 03/15/18 03/15/18 03/16/18 1515:00 23:00 07:00 IntakeIntake Total 1540 ml 250 ml OutputOutput Total 0 ml 1250 ml 700 ml BalanceBalance 0 ml 290 ml -450 ml Medications Medications Current Medications IV Flush (NS 3 ml) 3 ml PER PROTOCOL IV ; Start 01/25/18 at 15:30 Ondansetron HCl (Zofran Inj) 4 mg Q6H PRN IV NAUSEA AND/OR VOMITING; Start 01/25/18 at 15:30 Acetaminophen (Tylenol Tab) 650 mg Q6H PRN PO PAIN LEVEL 1-3 OR FEVER; Start 01/25/18 at 15:30 Acetaminophen/ Hydrocodone Bitart ([place] (5/325)) 1 tab Q6H PRN PO MODERATE PAIN LEVEL 4-6 Last administered on 1/14/19at 11:34; Admin Dose 1 TAB; Start 01/25/18 at 15:30 Allopurinol (Zyloprim) 100 mg DAILY PO Last administered on 03/16/18 08:48; Admin Dose 100 MG; Start 01/26/18 at 09:00 Baclofen (Lioresal) 10 mg TID PO Last administered on 03/16/18 13:15; Admin Dose 10 MG; Start 01/25/18 at 21:00 Carvedilol (Coreg) 12.5 mg BID PO Last administered on 03/14/18 20:17; Admin Dose 12.5 MG; Start 01/25/18 at 21:00 Duloxetine HCl (Cymbalta) 30 mg DAILY PO Last administered on 03/16/18 08:48; Admin Dose 30 MG; Start 01/26/18 at 09:00 Famotidine (Pepcid) 20 mg BID PO Last administered on 03/16/18 08:48; Admin Dose 20 MG; Start 01/25/18 at 21:00 Folic Acid (Folic Acid) 1 mg DAILY PO Last administered on 03/16/18 08:48; Admin Dose 1 MG; Start 01/26/18 at 09:00 Gabapentin (Neurontin) 100 mg BID PO Last administered on 03/16/18 08:48; Admin Dose 100 MG; Start 01/25/18 at 21:00 Magnesium Oxide (Mag-Ox 400) 400 mg BID PO Last administered on 03/16/18 08:48; Admin Dose 400 MG; Start 01/25/18 at 21:00 Nystatin 1 applic BID TOP Last administered on 03/16/18 09:02; Admin Dose 1 APPLIC; Start 01/25/18 at 21:00 Pyridoxine HCl (Vitamin B6) 50 mg DAILY PO Last administered on 03/16/18 0 8:48; Admin Dose 50 MG; Start 01/26/18 at 09:00 Risperidone (Risperdal) 1 mg QHS PO Last administered on 03/15/18 21:39; Admin Dose 1 MG; Start 01/25/18 at 21:00 Zonisamide (Zonegran) 300 mg QHS PO Last administered on 03/15/18 21:39; Admin Dose 300 MG; Start 01/25/18 at 21:00 Eye Lubricant (Artificial Tears Oph) 1 drop Q8 BOTH EYES Last administered on 03/16/18 13:15; Admin Dose 1 DROP; Start 01/25/18 at 22:00 Miscellaneous Information (Pending Santyl Order For Wound Care) This patient woody... PRN PRN XX wound; Start 01/25/18 at 16:30 Vitamin A/Vitamin D (Vitamin A & D Oint) 1 applic BID TOP Last administered on 03/16/18 08:48; Admin Dose 1 APPLIC; Start 01/26/18 at 21:00 Docusate Sodium (Colace) 200 mg BID PO Last administered on 03/15/18 21:42; Admin Dose 200 MG; Start 01/27/18 at 21:00 Enoxaparin Sodium (Lovenox) 40 mg DAILY SC Last administered on 03/16/18 08:4 7; Admin Dose 40 MG; Start 01/28/18 at 09:00 Sodium Hypochlorite (Dakin'S (Dilute 40)) 1 applic DAILY IRR Last administered on 03/16/18 08:58; Admin Dose 1 APPLIC; Start 01/27/18 at 18:30 Collagenase (Santyl) 1 applic DAILY TOP Last administered on 03/16/18 08:57; Admin Dose 1 APPLIC; Start 01/27/18 at 17:30 Hydrocortisone (Hydrocortisone 1% Cr) 1 applic BID TOP Last administered on 03/16/18 08:50; Admin Dose 1 APPLIC; Start 01/27/18 at 21:19 Collagenase (Santyl) 1 applic DAILY TOP Last administered on 03/16/18 08:57; Admin Dose 1 APPLIC; Start 02/04/18 at 09:00 Nitroglycerin (Nitroglycerin (Sl Tab) 0.4 Mg) 1 tab Q5M PRN SL ANGINA; Start 02/05/18 at 07:00 Diphenhydramine HCl (Benadryl) 25 mg Q6H PRN IV itching Last administered on 02/20/18at 09:57; Admin Dose 25 MG; Start 02/19/18 at 14:00 Silver Sulfadiazine (Thermazene 1% 25 Gm) 1 applic DAILY TOP Last administered on 03/16/18 08:57; Admin Dose 1 APPLIC; Start 03/07/18 at 09:00 Levofloxacin (Levaquin) 500 mg DAILY@06 PO Last administered on 03/16/18 06:47; Admin Dose 500 MG; Start 03/08/18 at 06:00 Fluconazole (Diflucan) 100 mg DAILY PO Last administered on 03/16/18 08:48; Admin Dose 100 MG; Start 03/08/18 at 12:00 Ampicillin (Ampicillin) 500 mg Q8 PO Last administered on 03/16/18at 13:15; Admin Dose 500 MG; Start 03/08/18 at 14:00 Zinc Sulfate (Zinc Sulfate) 220 mg DAILY PO Last administered on 03/16/18 08:48; Admin Dose 220 MG; Start 03/12/18 at 14:30 Ascorbic Acid (Vitamin C) 500 mg DAILY PO Last administered on 03/16/18 08:48; Admin Dose 500 MG; Start 03/12/18 at 14:30 Multivitamins Therapeutic (Theragran) 1 tab DAILY PO Last administered on 03/16/18 08:48; Admin Dose 1 TAB; Start 03/12/18 at 14:30 Magnesium Hydroxide (Milk Of Mag) 30 ml DAILY PRN PO CONSTIPATION; Start 03/13/18 at 13:00 DINA VICTOR NP Mar 16, 2018 14:50
[2018-03-16 15:36] VITALS: BP 114/66; PULSE 81; RESP 19
--- NOTE | 2018-03-16 17:24 | PN ---
Date/Time of Note Date/Time of Note DATE: 03/16/18 TIME: 17:23 Objective Vitals Vital Signs Date Temp Pulse Resp B/P (MAP) Pulse Ox O2 O2 Flow FiO2 Time Delivery Rate 03/16/18 98.7 81 19 114/66 98 15:36 (82) 03/14/18 Room Air 14:30 Intake and Output 03/15/18 03/15/18 03/16/18 1414:59 22:59 06:59 IntakeIntake Total 1540 ml 250 ml OutputOutput Total 0 ml 1250 ml 700 ml BalanceBalance 0 ml 290 ml -450 ml Medications Medications Current Medications IV Flush (NS 3 ml) 3 ml PER PROTOCOL IV ; Start 01/25/18 at 15:30 Ondansetron HCl (Zofran Inj) 4 mg Q6H PRN IV NAUSEA AND/OR VOMITING; Start 01/25/18 at 15:30 Acetaminophen (Tylenol Tab) 650 mg Q6H PRN PO PAIN LEVEL 1-3 OR FEVER; Start 01/25/18 at 15:30 Acetaminophen/ Hydrocodone Bitart ([place] (5/325)) 1 tab Q6H PRN PO MODERATE PAIN LEVEL 4-6 Last administered on 03/16/18 11:34; Admin Dose 1 TAB; Start 01/25/18 at 15:30 Allopurinol (Zyloprim) 100 mg DAILY PO Last administered on 03/16/18 08:48; Admin Dose 100 MG; Start 01/26/18 at 09:00 Baclofen (Lioresal) 10 mg TID PO Last administered on 03/16/18 13:15; Admin Dose 10 MG; Start 01/25/18 at 21:00 Carvedilol (Coreg) 12.5 mg BID PO Last administered on 03/14/18 20:17; Admin Dose 12.5 MG; Start 01/25/18 at 21:00 Duloxetine HCl (Cymbalta) 30 mg DAILY PO Last administered on 03/16/18 08:48; Admin Dose 30 MG; Start 01/26/18 at 09:00 Famotidine (Pepcid) 20 mg BID PO Last administered on 03/16/18 08:48; Admin Dose 20 MG; Start 01/25/18 at 21:00 Folic Acid (Folic Acid) 1 mg DAILY PO Last administered on 03/16/18 08:48; Admin Dose 1 MG; Start 01/26/18 at 09:00 Gabapentin (Neurontin) 100 mg BID PO Last administered on 03/16/18 08:48; Admin Dose 100 MG; Start 01/25/18 at 21:00 Magnesium Oxide (Mag-Ox 400) 400 mg BID PO Last administered on 03/16/18 08:48; Admin Dose 400 MG; Start 01/25/18 at 21:00 Nystatin 1 applic BID TOP Last administered on 03/16/18 09:02; Admin Dose 1 APPLIC; Start 01/25/18 at 21:00 Pyridoxine HCl (Vitamin B6) 50 mg DAILY PO Last administered on 03/16/18 08:48; Admin Dose 50 MG; Start 01/26/18 at 09:00 Risperidone (Risperdal) 1 mg QHS PO Last administered on 03/15/18 21:39; Admin Dose 1 MG; Start 01/25/18 at 21:00 Zonisamide (Zonegran) 300 mg QHS PO Last administered on 03/15/18 21:39; Admin Dose 300 MG; Start 01/25/18 at 21:00 Eye Lubricant (Artificial Tears Oph) 1 drop Q8 BOTH EYES Last administered on 03/16/18 13:15; Admin Dose 1 DROP; Start 01/25/18 at 22:00 Miscellaneous Information (Pending [facility] Order For Wound Care) This patient woody... PRN PRN XX wound; Start 01/25/18 at 16:30 Vitamin A/Vitamin D (Vitamin A & D Oint) 1 applic BID TOP Last administered on 03/16/18 08:48; Admin Dose 1 APPLIC; Start 01/26/18 at 21:00 Docusate Sodium (Colace) 200 mg BID PO Last administered on 03/15/18 21:42; Admin Dose 200 MG; Start 01/27/18 at 21:00 Enoxaparin Sodium (Lovenox) 40 mg DAILY SC Last administered on 03/16/18 08:47; Admin Dose 40 MG; Start 01/28/18 at 09:00 Sodium Hypochlorite (Dakin'S (Dilute )) 1 applic DAILY IRR Last administered on 03/16/18 08:58; Admin Dose 1 APPLIC; Start 01/27/18 at 18:30 Collagenase (Santyl) 1 applic DAILY TOP Last administered on 03/16/18 08:57; Admin Dose 1 APPLIC; Start 01/27/18 at 17:30 Hydrocortisone (Hydrocortisone 1% Cr) 1 applic BID TOP Last administered on 03/16/18 08:50; Admin Dose 1 APPLIC; Start 01/27/18 at 21:19 Collagenase (Santyl) 1 applic DAILY TOP Last administered on 03/16/18 08:57; Admin Dose 1 APPLIC; Start 02/04/18 at 09:00 Nitroglycerin (Nitroglycerin (Sl Tab) 0.4 Mg) 1 tab Q5M PRN SL ANGINA; Start 02/05/18 at 07:00 Diphenhydramine HCl (Benadryl) 25 mg Q6H PRN IV itching Last administered on 02/20/18 09:57; Admin Dose 25 MG; Start 02/19/18 at 14:00 Silver Sulfadiazine (Thermazene 1% 25 Gm) 1 applic DAILY TOP Last administered on 03/16/18 08:57; Admin Dose 1 APPLIC; Start 03/07/18 at 09:00 Zinc Sulfate (Zinc Sulfate) 220 mg DAILY PO Last administered on 03/16/18 08:48; Admin Dose 220 MG; Start 03/12/18 at 14:30 Ascorbic Acid (Vitamin C) 500 mg DAILY PO Last administered on 03/16/18 08:48; Admin Dose 500 MG; Start 03/12/18 at 14:30 Multivitamins Therapeutic (Theragran) 1 tab DAILY PO Last administered on 03/16/18 08:48; Admin Dose 1 TAB; Start 03/12/18 at 14:30 Magnesium Hydroxide (Milk Of Mag) 30 ml DAILY PRN PO CONSTIPATION; Start 03/13/18 at 13:00 VTE Prophylaxis Risk score (from Nsg)>0 risk: 6 SCD applied (from Nsg): No SCD contraindication: other Lines/Catheters IV Catheter Type: Benavidez in Place: No Assessment/Plan Hospital Course Subjective No acute changes overnight Objective Physical exam General: Patient is laying in bed and answers questions appropriately, does not have feeling below the shoulders Mentation: Patient is alert and oriented 4, Head: Normocephalic atraumatic Eyes: EOMI, pupils reactive to light Neck: Supple, nontender, midline Respiratory: Clear to auscultation bilaterally Cardiovascular: regular rate, no obvious murmurs Gastrointestinal: non-tender to palpation, bowel sounds heard. Neurological: Moves upper extremities appropriately, no feeling or movement in the lower extremities Skin: No new skin lesions ASSESSMENT/PLAN: Very unfortunate 57-year-old male with a history of paraplegia secondary to spinal cord syndrome 6 months ago, who also resides in a correction, presented to the emergency room with worsening bilateral heel ulcers with foul-smelling drainage.... 1. Bilateral heel Decub ulcers without evidence of OM -s/p excisional debridement of bilateral heel decubitus wounds 01/26=>.Wound cultures: Enterobacter cloacae -Left heel resolved -ulcers progressed on Rt heel => Repeat Bedside debridement and application of wound vac 03/04/18 -Antibiotic management per ID=>on orals for now -Wound care 2. Paraplegia secondary to spinal disorder and back surgery 6 months ago -Exact nature of disorder and surgery unclear -Continue baclofen 3. Depression -Continue home Cymbalta 4. Hypertension -Continue Coreg 5. Debility secondary to #2. -Patient resides in a correction. 6. Chronic anemia with mild iron deficiency. -s/p tx 02/03=>stable H&H -Continue oral iron replacement. 7. Unstageable pressure ulcers, sacral coccyx -S/p bedside debridement 02/13/18=> deteriorates further secondary to immobilization/noncompliance with nursing turning protocol. -Repeat debridement 03/10/2018 w/ application of wound VAC -WC: VANCO RESISTANT enterococcus 3+, coag negative staph 1+, alpha hemolytic strep 1+. -On appropriate antimicrobials -Continue wound care -Add vitamin C/zinc/Theragen. Continue protein supplements. -Dietary Consult 8. Constipation -Continue stool softeners. PRN laxative Prophylaxis:Lovenox/Pepcid Diet: Regular CODE STATUS: Full code Disposition: Wound care/antibiotics. Pending correction placement MARC CHAN Mar 16, 2018 17:24
--- NOTE | 2018-03-16 18:24 | NUR ---
RN NOTES No significant change noted. Vital signs stable all throughout the shift. Patient was seen by wound care nurse for consult of possible non blanchable redness on the ischium area, as per wound nurse, blanching is consistent with moisture associated dermatitis. Patient was repositioned every 1 1/2- 2 hours. wound care done, both wound vac dressing was changed as ordered. Seen by USABILITY ARCHITECT Martha with no new order noted. Kept safe and comfortable. All needs attended. will endorse to shift boss fopr continuity of care.
[2018-03-16 19:42] VITALS: BP 102/59; PULSE 98; RESP 18
[2018-03-16] MEDS: RISPERIDONE 1 MG TAB PO SCH (20:07)
[2018-03-16] MEDS: ZONISAMIDE 100 MG CAP PO SCH (20:07)
[2018-03-17 02:15] VITALS: BP 104/61; PULSE 87; RESP 18
[2018-03-17] MEDS: ARTIFICIAL TEARS 15 ML OPH BOTH EYES SCH ×3 (06:37→22:36)
--- NOTE | 2018-03-17 06:57 | NUR ---
End of Shift RN Note: No acute changes occurred during my shift. Pt denies SOB, no acute signs of distress noted. Pt turned Q2H and wound car was provided as ordered and as needed. Medications administered in a timely manner. Fal precautions implemented and continued. Hourly rounding provided. Will continue to monitor and endorse plan of care to next shift.
[2018-03-17 07:50] VITALS: BP 132/84; PULSE 67; RESP 16
[2018-03-17] MEDS: VITAMIN A & D 5 GM OINT PACKET TOP SCH ×2 (08:53→20:55)
[2018-03-17] MEDS: NYSTATIN 15 GM POWDER BTL TOP SCH ×2 (08:53→20:54)
[2018-03-17] MEDS: HYDROCORTISONE 1% 28 GM CR TOP SCH (08:53)
[2018-03-17] MEDS: ENOXAPARIN 40 MG/0.4 ML SYG SC SCH (08:54)
[2018-03-17] MEDS: FOLIC ACID 1 MG TAB PO SCH (08:55)
[2018-03-17] MEDS: MULTIVITAMINS THERAPEUTIC TAB PO SCH (08:55)
[2018-03-17] MEDS: DULOXETINE 30 MG CAP DR PO SCH (08:55)
[2018-03-17] MEDS: ZINC SULFATE 220 MG CAP PO SCH (08:55)
[2018-03-17] MEDS: GABAPENTIN 100 MG CAP PO SCH ×2 (08:56→20:52)
[2018-03-17] MEDS: PYRIDOXINE 50 MG TAB PO SCH (08:56)
[2018-03-17] MEDS: FAMOTIDINE 20 MG TAB PO SCH ×2 (08:56→20:51)
[2018-03-17] MEDS: MAGNESIUM OXIDE 400 MG TAB PO SCH ×2 (08:56→20:51)
[2018-03-17] MEDS: BACLOFEN 10 MG TAB PO SCH ×3 (08:56→20:51)
[2018-03-17] MEDS: ALLOPURINOL 100 MG TAB PO SCH (08:56)
[2018-03-17] MEDS: ASCORBIC ACID 500 MG TAB PO SCH (08:56)
[2018-03-17] MEDS: DOCUSATE SODIUM 100 MG CAP PO SCH ×2 (08:57→20:52)
[2018-03-17] MEDS: SODIUM HYPOCHLORITE (1/40) 1 APPLIC BTL IRR SCH (08:58)
[2018-03-17] MEDS: COLLAGENASE 5 GM (UD JAR) TOP SCH ×2 (08:59)
[2018-03-17] MEDS: SILVER SULFADIAZINE 1% 25 GM CR TOP SCH (09:18)
[2018-03-17] MEDS: BALSAM PERU/CASTOR OIL 60 GM TUBE TOP SCH (09:19)
[2018-03-17] MEDS: HYDROCODONE/APAP (5/325) TAB PO PRN ×2 (10:32→17:13)
--- NOTE | 2018-03-17 10:41 | PN ---
Date/Time of Note Date/Time of Note DATE: 03/17/18 TIME: 10:39 Assessment/Plan Lines/Catheters IV Catheter Type (from Nrs): Saline Lock Benavidez in Place (from Nrs): Yes Assessment/Plan Chief Complaint/Hosp Course 1. Stage 4 necrotic wound: s/p repeat excisional debridement 03/10/18; status post I&D&D of right thigh blister -cont local care> Santyl to sacrum > consider follow ups at wound care clinic near where he will be discharged> wound VAC to sacrum-nursing to track tube in order to prevent equipment related skin damage -Continue Silver ointment to right thigh blister (S/P I&D) -frequent turning and [id number] with patient importance of frequent turning however per nursing patient always returns to his back after being repositioned-once again reinforced importance of offloading -low air loss mattress -vitamin c -short term zinc -optimize nutrition -skin protection against devices -further debridement> repeat debridement tomorrow 2. Bilateral lower extremity ulcers: with wound vac -As above -Per podiatry 3. Hypochromic microcytic anemia: -Monitor and transfuse as needed 4. Depression: -Psychiatric optimization 5. Paraplegia -Supportive 6. Hypertension -nutrition and medication optimization Thank you. Patient seen and examined in collaboration with Dr. Brian Angulo. Subjective 24 Hr Interval Summary Feels well. No fevers, chills, sob, congested cough, cp, palpitations, woody, dizziness, n/v/d/dysuria. Exam/Review of Systems Vital Signs Vitals Vital Signs Date Temp Pulse Resp B/P (MAP) Pulse Ox O2 O2 Flow FiO2 Time Delivery Rate 03/17/18 97.6 67 16 132/84 97 07:50 (100) 03/14/18 Room Air 14:30 Intake and Output 03/16/18 03/16/18 03/17/18 1515:00 23:00 07:00 IntakeIntake Total 600 ml 360 ml OutputOutput Total 1200 ml 800 ml BalanceBalance 600 ml -840 ml -800 ml Exam Free Text/Dictation Constitutional: alert, oriented Psych: nl mood/affect, anxiety (Minimal) Head: normocephalic, atraumatic Eyes: nl conjunctiva, EOMI, nl sclera ENMT: nl external ears & nose, nl lips & teeth, mucosa pink and moist Neck: supple, non-tender Respiratory: normal air movement; No congested cough Cardiovascular: regular rate and rhythm; No edema Gastrointestinal: soft, non-tender; No distended Musculoskeletal: nl extremities to inspection; No nl gait and stance Extremities: normal pulses; No edema Neurological: nl mental status, nl speech Skin: nl turgor, Sacral wound: no periwound erythema, minimal drainage (serosanguineous), wound vac; wound vac to lower leg; right thigh skin blister (clean, no drainage/periwound erythema) FERNANDO DÍAZ NP Mar 17, 2018 10:41
--- NOTE | 2018-03-17 11:38 | CONS ---
Date/Time of Note Date/Time of Note DATE: 03/17/18 TIME: 11:38 Assessment/Plan Assessment/Plan Hospital Course No acute events. Looks comfortable, no fevers Antimicrobials: Status post fluconazole ampicillin Levaquin Microbiology: Right heel wound culture grew enterococcus and Enterobacter cloacae, Sacral wound culture grew VRE, Perla albicans, coag negative staph Physical examination: Well-nourished well-developed middle-aged man who is awake in no distress. Head atraumatic normocephalic sclera nonicteric vehicle mucosa dry neck is supple chest rise symmetrical breath sounds diminished bases heart S1-S2. Abdomen soft bowel sounds present. Extremities without cyanosis. Assessment: 1. Right foot ulceration status post debridement down to muscle 2. Stage III sacral wound, s/p debridement 03/10/18 3. Paraplegia 4. Hypertension 5. Diabetes Plan: Patient remains stable, completed antibiotics, continue wound care per to rgical and podiatry rec-s. Consultation Date/Type/Reason Admit Date/Time Jan 26, 2018 at 08:29 Initial Consult Date 02/12/18 Type of Consult id Requesting Provider: LIVIA ADAME V. GEOGRAPHY TEACHER Exam/Review of Systems Vital Signs Vitals Vital Signs Date Temp Pulse Resp B/P (MAP) Pulse Ox O2 O2 Flow FiO2 Time Delivery Rate 03/17/18 97.6 67 16 132/84 97 07:50 (100) 03/14/18 Room Air 14:30 Intake and Output 03/16/18 03/16/18 03/17/18 1515:00 23:00 07:00 IntakeIntake Total 600 ml 360 ml OutputOutput Total 1200 ml 800 ml BalanceBalance 600 ml -840 ml -800 ml Medications Medications Current Medications IV Flush (NS 3 ml) 3 ml PER PROTOCOL IV ; Start 01/25/18 at 15:30 Ondansetron HCl (Zofran Inj) 4 mg Q6H PRN IV NAUSEA AND/OR VOMITING; Start 01/25/18 at 15:30 Acetaminophen (Tylenol Tab) 650 mg Q6H PRN PO PAIN LEVEL 1-3 OR FEVER; Start 01/25/18 at 15:30 Acetaminophen/ Hydrocodone Bitart ([place] (5/325)) 1 tab Q6H PRN PO MODERATE PAIN LEVEL 4-6 Last administered on 03/17/18at 10:32; Admin Dose 1 TAB; Start 01/25/18 at 15:30 Allopurinol (Zyloprim) 100 mg DAILY PO Last administered on 03/17/18 08:56; Admin Dose 100 MG; Start 01/26/18 at 09:00 Baclofen (Lioresal) 10 mg TID PO Last administered on 03/17/18 08:56; Admin Dose 10 MG; Start 01/25/18 at 21:00 Carvedilol (Coreg) 12.5 mg BID PO Last administered on 03/17/18 08:56; Admin Dose 12.5 MG; Start 01/25/18 at 21:00 Duloxetine HCl (Cymbalta) 30 mg DAILY PO Last administered on 03/17/18 08:55; Admin Dose 30 MG; Start 01/26/18 at 09:00 Famotidine (Pepcid) 20 mg BID PO Last administered on 03/17/18 08:56; Admin Dose 20 MG; Start 01/25/18 at 21:00 Folic Acid (Folic Acid) 1 mg DAILY PO Last administered on 03/17/18 08:55; Admin Dose 1 MG; Start 01/26/18 at 09:00 Gabapentin (Neurontin) 100 mg BID PO Last administered on 03/17/18 08:56; Admin Dose 100 MG; Start 01/25/18 at 21:00 Magnesium Oxide (Mag-Ox 400) 400 mg BID PO Last administered on 03/17/18 08:56; Admin Dose 400 MG; Start 01/25/18 at 21:00 Nystatin 1 applic BID TOP Last administered on 03/17/18 08:53; Admin Dose 1 APPLIC; Start 01/25/18 at 21:00 Pyridoxine HCl (Vitamin B6) 50 mg DAILY PO Last administered on 03/17/18 08 :56; Admin Dose 50 MG; Start 01/26/18 at 09:00 Risperidone (Risperdal) 1 mg QHS PO Last administered on 03/16/18 20:07; Admin Dose 1 MG; Start 01/25/18 at 21:00 Zonisamide (Zonegran) 300 mg QHS PO Last administered on 03/16/18 20:07; Admin Dose 300 MG; Start 01/25/18 at 21:00 Eye Lubricant (Artificial Tears Oph) 1 drop Q8 BOTH EYES Last administered on 03/17/18 06:37; Admin Dose 1 DROP; Start 01/25/18 at 22:00 Miscellaneous Information (Pending Santyl Order For Wound Care) This patient woody... PRN PRN XX wound; Start 01/25/18 at 16:30 Vitamin A/Vitamin D (Vitamin A & D Oint) 1 applic BID TOP Last administered on 03/17/18 08:53; Admin Dose 1 APPLIC; Start 01/26/18 at 21:00 Docusate Sodium (Colace) 200 mg BID PO Last administered on 03/16/18 20:07; Admin Dose 200 MG; Start 01/27/18 at 21:00 Enoxaparin Sodium (Lovenox) 40 mg DAILY SC Last administered on 03/17/18 08:54 ; Admin Dose 40 MG; Start 01/28/18 at 09:00 Sodium Hypochlorite (Dakin'S (Dilute )) 1 applic DAILY IRR Last administered on 03/16/18 08:58; Admin Dose 1 APPLIC; Start 01/27/18 at 18:30 Collagenase (Santyl) 1 applic DAILY TOP Last administered on 03/16/18 08:57; Admin Dose 1 APPLIC; Start 01/27/18 at 17:30 Hydrocortisone (Hydrocortisone 1% Cr) 1 applic BID TOP Last administered on 03/17/18 08:53; Admin Dose 1 APPLIC; Start 01/27/18 at 21:19 Collagenase (Santyl) 1 applic DAILY TOP Last administered on 03/16/18 08:57; Admin Dose 1 APPLIC; Start 02/04/18 at 09:00 Nitroglycerin (Nitroglycerin (Sl Tab) 0.4 Mg) 1 tab Q5M PRN SL ANGINA; Start 02/05/18 at 07:00 Diphenhydramine HCl (Benadryl) 25 mg Q6H PRN IV itching Last administered on 02/20/18at 09:57; Admin Dose 25 MG; Start 02/19/18 at 14:00 Silver Sulfadiazine (Thermazene 1% 25 Gm) 1 applic DAILY TOP Last administered on 03/17/18 09:18; Admin Dose 1 APPLIC; Start 03/07/18 at 09:00 Zinc Sulfate (Zinc Sulfate) 220 mg DAILY PO Last administered on 03/17/18at 08:55; Admin Dose 220 MG; Start 03/12/18 at 14:30 Ascorbic Acid (Vitamin C) 500 mg DAILY PO Last administered on 03/17/18at 08:56; Admin Dose 500 MG; Start 03/12/18 at 14:30 Multivitamins Therapeutic (Theragran) 1 tab DAILY PO Last administered on 03/17/18at 08:55; Admin Dose 1 TAB; Start 03/12/18 at 14:30 Magnesium Hydroxide (Milk Of Mag) 30 ml DAILY PRN PO CONSTIPATION; Start 03/13/18 at 13:00 DINA VICTOR NP Mar 17, 2018 11:38
--- NOTE | 2018-03-17 11:56 | NUR ---
ENDORSED BACK TO ME: ACCEPTED AT [facility] AWAITS ROXANE FROM [facility] SPOKE TO CHARLES PENA OF [facility] @ [phone] REGARDING ROXANE, SAID THAT NOBODY NOTIFIED HER RE ACCEPTANCE AND ROXANE WITH [facility]. ASKED AND PROVIDED HER TEL # OF [facility] [phone] AND CP # OF [facility] ADMISSIONS @ TEL # [phone]. FAXED [facility] CLINICAL REVIEW AND PROGRESS NOTES REQUESTED FROM 03/14/TO CURRENT 03/17/18/ CALLED [facility] SPOKE RON ADMISSIONS CANNOT VERIFY ACCEPTANCE WILL CALL [facility] AND CALL ME BACK TO CONFIRMED ACCEPTANCE OF THIS PATIENT IN THEIR FACILITY.. Addendum: 03/17/18 at 1206 by GENOVEVA GONSALES CM Amended: Links added.
--- NOTE | 2018-03-17 13:40 | PN ---
Date/Time of Note Date/Time of Note DATE: 03/17/18 TIME: 13:40 Objective Vitals Vital Signs Date Temp Pulse Resp B/P (MAP) Pulse Ox O2 O2 Flow FiO2 Time Delivery Rate 03/17/18 97.6 67 16 132/84 97 07:50 (100) 03/14/18 Room Air 14:30 Intake and Output 03/16/18 03/16/18 03/17/18 1515:00 23:00 07:00 IntakeIntake Total 600 ml 360 ml OutputOutput Total 1200 ml 800 ml BalanceBalance 600 ml -840 ml -800 ml Medications Medications Current Medications IV Flush (NS 3 ml) 3 ml PER PROTOCOL IV ; Start 01/25/18 at 15:30 Ondansetron HCl (Zofran Inj) 4 mg Q6H PRN IV NAUSEA AND/OR VOMITING; Start 01/25/18 at 15:30 Acetaminophen (Tylenol Tab) 650 mg Q6H PRN PO PAIN LEVEL 1-3 OR FEVER; Start 01/25/18 at 15:30 Acetaminophen/ Hydrocodone Bitart ([place] (5/325)) 1 tab Q6H PRN PO MODERATE PAIN LEVEL 4-6 Last administered on 03/17/18 10:32; Admin Dose 1 TAB; Start 01/25/18 at 15:30 Allopurinol (Zyloprim) 100 mg DAILY PO Last administered on 03/17/18 08:56; Admin Dose 100 MG; Start 01/26/18 at 09:00 Baclofen (Lioresal) 10 mg TID PO Last administered on 03/17/18 08:56; Admin Dose 10 MG; Start 01/25/18 at 21:00 Carvedilol (Coreg) 12.5 mg BID PO Last administered on 03/17/18 08:56; Admin Dose 12.5 MG; Start 01/25/18 at 21:00 Duloxetine HCl (Cymbalta) 30 mg DAILY PO Last administered on 03/17/18 08:55; Admin Dose 30 MG; Start 01/26/18 at 09:00 Famotidine (Pepcid) 20 mg BID PO Last administered on 03/17/18 08:56; Admin Dose 20 MG; Start 01/25/18 at 21:00 Folic Acid (Folic Acid) 1 mg DAILY PO Last administered on 03/17/18 08:55; Admin Dose 1 MG; Start 01/26/18 at 09:00 Gabapentin (Neurontin) 100 mg BID PO Last administered on 03/17/18 08:56; Admin Dose 100 MG; Start 01/25/18 at 21:00 Magnesium Oxide (Mag-Ox 400) 400 mg BID PO Last administered on 03/17/18 08:56; Admin Dose 400 MG; Start 01/25/18 at 21:00 Nystatin 1 applic BID TOP Last administered on 03/17/18 08:53; Admin Dose 1 APPLIC; Start 01/25/18 at 21:00 Pyridoxine HCl (Vitamin B6) 50 mg DAILY PO Last administered on 03/17/18 08:56; Admin Dose 50 MG; Start 01/26/18 at 09:00 Risperidone (Risperdal) 1 mg QHS PO Last administered on 03/16/18 20:07; Admin Dose 1 MG; Start 01/25/18 at 21:00 Zonisamide (Zonegran) 300 mg QHS PO Last administered on 03/16/18 20:07; Admin Dose 300 MG; Start 01/25/18 at 21:00 Eye Lubricant (Artificial Tears Oph) 1 drop Q8 BOTH EYES Last administered on 03/17/18 06:37; Admin Dose 1 DROP; Start 01/25/18 at 22:00 Miscellaneous Information (Pending [facility] Order For Wound Care) This patient woody... PRN PRN XX wound; Start 01/25/18 at 16:30 Vitamin A/Vitamin D (Vitamin A & D Oint) 1 applic BID TOP Last administered on 03/17/18 08:53; Admin Dose 1 APPLIC; Start 01/26/18 at 21:00 Docusate Sodium (Colace) 200 mg BID PO Last administered on 03/16/18 20:07; Admin Dose 200 MG; Start 01/27/18 at 21:00 Enoxaparin Sodium (Lovenox) 40 mg DAILY SC Last administered on 03/17/18 08:54; Admin Dose 40 MG; Start 01/28/18 at 09:00 Sodium Hypochlorite (Dakin'S (Dilute 40)) 1 applic DAILY IRR Last administered on 03/16/18 08:58; Admin Dose 1 APPLIC; Start 01/27/18 at 18:30 Collagenase (Santyl) 1 applic DAILY TOP Last administered on 03/16/18 08:57; Admin Dose 1 APPLIC; Start 01/27/18 at 17:30 Hydrocortisone (Hydrocortisone 1% Cr) 1 applic BID TOP Last administered on 03/17/18 08:53; Admin Dose 1 APPLIC; Start 01/27/18 at 21:19 Collagenase (Santyl) 1 applic DAILY TOP Last administered on 03/16/18 08:57; Admin Dose 1 APPLIC; Start 02/04/18 at 09:00 Nitroglycerin (Nitroglycerin (Sl Tab) 0.4 Mg) 1 tab Q5M PRN SL ANGINA; Start 02/05/18 at 07:00 Diphenhydramine HCl (Benadryl) 25 mg Q6H PRN IV itching Last administered on 02/20/18at 09:57; Admin Dose 25 MG; Start 02/19/18 at 14:00 Silver Sulfadiazine (Thermazene 1% 25 Gm) 1 applic DAILY TOP Last administered on 03/17/18 09:18; Admin Dose 1 APPLIC; Start 03/07/18 at 09:00 Zinc Sulfate (Zinc Sulfate) 220 mg DAILY PO Last administered on 03/17/18 08:55; Admin Dose 220 MG; Start 03/12/18 at 14:30 Ascorbic Acid (Vitamin C) 500 mg DAILY PO Last administered on 03/17/18 08:56; Admin Dose 500 MG; Start 03/12/18 at 14:30 Multivitamins Therapeutic (Theragran) 1 tab DAILY PO Last administered on 03/17/18 08:55; Admin Dose 1 TAB; Start 03/12/18 at 14:30 Magnesium Hydroxide (Milk Of Mag) 30 ml DAILY PRN PO CONSTIPATION; Start 03/13/18 at 13:00 Silver Nitrate (Silver Nitrate Swabs) 2 stick ONCE ONCE TOP ; Start 03/18/18 at 09:00; Stop 03/18/18 at 09:01 Lidocaine/ Epinephrine (Xylocaine 1%/ Epi (Pf)) 30 ml ONCE ONCE INJ ; Start 03/18/18 at 09:00; Stop 03/18/18 at 09:01 VTE Prophylaxis Risk score (from Ns)>0 risk: 6 SCD applied (from [facility] No SCD contraindication: other Lines/Catheters IV Catheter Type: Benavidez in Place: No Assessment/Plan Hospital Course Subjective No acute changes overnight Objective Physical exam General: Patient is laying in bed and answers questions appropriately, does not have feeling below the shoulders Mentation: Patient is alert and oriented 4, Head: Normocephalic atraumatic Eyes: EOMI, pupils reactive to light Neck: Supple, nontender, midline Respiratory: Clear to auscultation bilaterally Cardiovascular: regular rate, no obvious murmurs Gastrointestinal: non-tender to palpation, bowel sounds heard. 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 1. Bilateral heel Decub ulcers without evidence of OM -s/p excisional debridement of bilateral heel decubitus wounds 01/26=>.Wound cultures: Enterobacter cloacae -Left heel resolved -ulcers progressed on Rt heel => Repeat Bedside debridement and application of wound vac 03/04/18 -Antibiotic management per ID=>on orals for now -Wound care 2. Paraplegia secondary to spinal disorder and back surgery 6 months ago -Exact nature of disorder and surgery unclear -Continue baclofen 3. Depression -Continue home Cymbalta 4. Hypertension -Continue Coreg 5. Debility secondary to #2. -Patient resides in a penitentiary. 6. Chronic anemia with mild iron deficiency. -s/p tx 02/03=>stable H&H -Continue oral iron replacement. 7. Unstageable pressure ulcers, sacral coccyx -S/p bedside debridement 02/13/18=> deteriorates further secondary to immobilization/noncompliance with nursing turning protocol. -Repeat debridement 03/10/2018 w/ application of wound VAC -WC: VANCO RESISTANT enterococcus 3+, coag negative staph 1+, alpha hemolytic strep 1+. -On appropriate antimicrobials -Continue wound care -Add vitamin C/zinc/Theragen. Continue protein supplements. -Dietary Consult 8. Constipation -Continue stool softeners. PRN laxative Prophylaxis:Lovenox/Pepcid Diet: Regular CODE STATUS: Full code Disposition: Wound care/antibiotics. Pending penitentiary placement MARC CHAN Mar 17, 2018 13:40
[2018-03-17 14:00] VITALS: BP 102/64; PULSE 82; RESP 18
--- NOTE | 2018-03-17 16:19 | CONS ---
DATE OF ADMISSION: 01/26/2018 DATE OF CONSULTATION: 03/17/2018 SUBJECTIVE: The patient is being followed for bilateral heel ulcerations, currently using negative pressure wound therapy on the right, has a history of Enterobacter cloacae infection and is scheduled for VAC change tomorrow. The patient is without any acute complaints. PHYSICAL EXAMINATION: VITAL SIGNS: Temperature 97.6, pulse is 67, respiratory rate 16, pulse ox 97. GENERAL: The patient is alert, oriented. EXTREMITIES: Wound VAC on the right foot. Dressing is clean, dry, intact. Minimal edema of lower extremities. LABORATORIES: WBC 5.1, hemoglobin 9.3, hematocrit 30.3, platelets 313 on 03/09/2018. ASSESSMENT: 1. Cellulitis, bilateral lower extremity, resolving. 2. Right heel stage III pressure ulceration. 3. Paraplegia. PLAN: VAC change. Can obtain a repeat wound cultures with next dressing change. Continue current therapy at 125 mmHg on continuous setting. Dictated By: JAZMIN GLEASON DPM RB/JARED Conf#: [id number] DID#: [id number] CC: ALEKSANDR GALAVIZ MD; TRAVIS CLEMONS MD; MARC CHAN MD;*EndCC* MTDD
--- NOTE | 2018-03-17 18:10 | NUR ---
RN NOTES No significant change. Vital signs stable. Wound vac intact with scant amount of drainage noted. Dr Macario marquezayed for wound specimen to be collected in am during wound vac change. Patient was medicated with [place] 5-325 mg 1 tablet for pain. Reposition every 2 hours and as needed. Kept safe and comfortable. No new skin issues identified. Will endorse to night manager for continuity of care.
[2018-03-17 20:00] VITALS: BP 104/60; PULSE 73; RESP 17
[2018-03-17 20:49] VITALS: BP 109/63; PULSE 72; RESP 72
[2018-03-17] MEDS: ZONISAMIDE 100 MG CAP PO SCH (20:51)
[2018-03-17] MEDS: RISPERIDONE 1 MG TAB PO SCH (20:52)
[2018-03-17] MEDS: ACETAMINOPHEN 325 MG TAB PO PRN (20:53)
[2018-03-18] MEDS: HYDROCODONE/APAP (5/325) TAB PO PRN ×2 (01:23→18:31)
[2018-03-18 02:20] VITALS: BP 103/60; PULSE 71; RESP 17
[2018-03-18] MEDS: ARTIFICIAL TEARS 15 ML OPH BOTH EYES SCH ×3 (06:20→22:12)
[2018-03-18 08:00] VITALS: BP 111/66; PULSE 64; RESP 20
--- NOTE | 2018-03-18 08:38 | PN ---
Date/Time of Note Date/Time of Note DATE: 03/18/18 TIME: 08:34 Assessment/Plan Lines/Catheters IV Catheter Type (from Nrs): Saline Lock Benavidez in Place (from Nrs): Yes Assessment/Plan Chief Complaint/Hosp Course 1. Stage 4 necrotic wound: s/p repeat excisional debridement 03/10/18; status post I&D&D of right thigh blister -cont local care> Santyl to sacrum > consider follow ups at wound care clinic near where he will be discharged> wound VAC to sacrum-nursing to track tube in order to prevent equipment related skin damage -Continue Silver ointment to right thigh blister (S/P I&D) -frequent turning and [id number] with patient importance of frequent turning however per nursing patient always returns to his back after being repositioned-once again reinforced importance of offloading -low air loss mattress -vitamin c -short term zinc -optimize nutrition -skin protection against devices -further debridement> repeat debridement today 2. Bilateral lower extremity ulcers: with wound vac -As above -Per podiatry 3. Hypochromic microcytic anemia: -Monitor and transfuse as needed 4. Depression: -Psychiatric optimization 5. Paraplegia -Supportive 6. Hypertension -nutrition and medication optimization Thank you. Patient seen and examined in collaboration with Dr. Brian Angulo. Subjective 24 Hr Interval Summary Feels well. debridement today. No fevers, chills, sob, congested cough, cp, palpitations, woody, dizziness, n/v/d/dysuria. Exam/Review of Systems Vital Signs Vitals Vital Signs Date Temp Pulse Resp B/P (MAP) Pulse Ox O2 O2 Flow FiO2 Time Delivery Rate 03/18/18 98.3 71 17 103/60 98 02:20 (74) 03/17/18 Room Air 14:00 Intake and Output 03/17/18 03/17/18 03/18/18 1515:00 23:00 07:00 IntakeIntake Total 1040 ml 400 ml OutputOutput Total 950 ml 900 ml BalanceBalance 1040 ml -550 ml -900 ml FERNANDO DÍAZ NP Mar 18, 2018 08:38
[2018-03-18] MEDS: VITAMIN A & D 5 GM OINT PACKET TOP SCH ×2 (09:00→20:34)
[2018-03-18] MEDS: SILVER SULFADIAZINE 1% 25 GM CR TOP SCH (09:00)
[2018-03-18] MEDS: COLLAGENASE 5 GM (UD JAR) TOP SCH ×2 (09:00)
[2018-03-18] MEDS: SODIUM HYPOCHLORITE (1/40) 1 APPLIC BTL IRR SCH (09:00)
[2018-03-18] MEDS ORDERED: SILVER NITRATE SWAB TOP ONE (09:00)
[2018-03-18] MEDS ORDERED: LIDOCAINE 1%/EPI 30 ML INJ INJ ONE (09:00)
[2018-03-18] MEDS: BALSAM PERU/CASTOR OIL 60 GM TUBE TOP SCH (09:00)
[2018-03-18] MEDS: PYRIDOXINE 50 MG TAB PO SCH (09:16)
[2018-03-18] MEDS: GABAPENTIN 100 MG CAP PO SCH ×2 (09:16→20:36)
[2018-03-18] MEDS: FAMOTIDINE 20 MG TAB PO SCH ×2 (09:16→20:34)
[2018-03-18] MEDS: MAGNESIUM OXIDE 400 MG TAB PO SCH ×2 (09:16→20:35)
[2018-03-18] MEDS: MULTIVITAMINS THERAPEUTIC TAB PO SCH (09:16)
[2018-03-18] MEDS: ZINC SULFATE 220 MG CAP PO SCH (09:16)
[2018-03-18] MEDS: FOLIC ACID 1 MG TAB PO SCH (09:17)
[2018-03-18] MEDS: BACLOFEN 10 MG TAB PO SCH ×3 (09:17→20:35)
[2018-03-18] MEDS: DOCUSATE SODIUM 100 MG CAP PO SCH ×2 (09:17→20:35)
[2018-03-18] MEDS: ASCORBIC ACID 500 MG TAB PO SCH (09:17)
[2018-03-18] MEDS: DULOXETINE 30 MG CAP DR PO SCH (09:17)
[2018-03-18] MEDS: ALLOPURINOL 100 MG TAB PO SCH (09:17)
[2018-03-18] MEDS: NYSTATIN 15 GM POWDER BTL TOP SCH ×2 (09:17→20:37)
[2018-03-18] MEDS: ENOXAPARIN 40 MG/0.4 ML SYG SC SCH (09:19)
--- NOTE | 2018-03-18 11:46 | PN ---
Date/Time of Note Date/Time of Note DATE: 03/18/18 TIME: 11:45 Assessment/Plan Lines/Catheters IV Catheter Type (from Nrs): Saline Lock Benavidez in Place (from Nrs): Yes Assessment/Plan Chief Complaint/Hosp Course 1. Stage 4 necrotic wound: s/p repeat excisional debridement 03/10/18; status post I&D&D of right thigh blister -cont local care> Santyl to sacrum > consider follow ups at wound care clinic near where he will be discharged> wound VAC to sacrum-nursing to track tube in order to prevent equipment related skin damage -Continue Silver ointment to right thigh blister (S/P I&D) -frequent turning and [id number]-[id number] with patient importance of frequent turning however per nursing patient always returns to his back after being repositioned-once again reinforced importance of offloading -low air loss mattress -vitamin c -short term zinc -optimize nutrition -skin protection against devices -further debridement> repeat debridement today 2. Bilateral lower extremity ulcers: with wound vac -As above -Per podiatry 3. Hypochromic microcytic anemia: -Monitor and transfuse as needed 4. Depression: -Psychiatric optimization 5. Paraplegia -Supportive 6. Hypertension -nutrition and medication optimization Thank you. Patient seen and examined in collaboration with Dr. Brian Angulo. Subjective 24 Hr Interval Summary debridement today. No fevers, chills, sob, congested cough, cp, palpitations, woody, dizziness, n/v/d/dysuria. Exam/Review of Systems Vital Signs Vitals Vital Signs Date Temp Pulse Resp B/P (MAP) Pulse Ox O2 O2 Flow FiO2 Time Delivery Rate 03/18/18 98.6 64 20 111/66 96 08:00 (81) 03/17/18 Room Air 14:00 Intake and Output 03/17/18 03/17/18 03/18/18 1515:00 23:00 07:00 IntakeIntake Total 1040 ml 400 ml OutputOutput Total 950 ml 900 ml BalanceBalance 1040 ml -550 ml -900 ml Exam Free Text/Dictation Constitutional: alert, oriented Psych: nl mood/affect, anxiety (Minimal) Head: normocephalic, atraumatic Eyes: nl conjunctiva, EOMI, nl sclera ENMT: nl external ears & nose, nl lips & teeth, mucosa pink and moist Neck: supple, non-tender Respiratory: normal air movement; No congested cough Cardiovascular: regular rate and rhythm; No edema Gastrointestinal: soft, non-tender; No distended Musculoskeletal: nl extremities to inspection; No nl gait and stance Extremities: normal pulses; No edema Neurological: nl mental status, nl speech Skin: nl turgor, Sacral wound: no periwound erythema, minimal drainage (serosanguineous), wound vac; wound vac to lower leg; right thigh skin blister (clean, no drainage/periwound erythema) FERNANDO DÍAZ NP Mar 18, 2018 11:46
--- NOTE | 2018-03-18 11:50 | OPR ---
Date/Time of Note Date/Time of Note DATE: 03/18/18 TIME: 11:46 Operative Report Procedure Date: Mar 18, 2018 Preoperative Diagnosis Sacral stage IV decubitus ulcer with slough and necrotic tissue, 4.0 x 3.5 centimeters Postoperative Diagnosis Sacral stage IV decubitus ulcer with slough and necrotic tissue, 4.0 x 3.5 cm Operation/Procedure Performed Excisional debridement of sacral skin, subcutaneous, muscle/fascia, bone 4.0 x 3.5 cm Surgeon see signature line Heliarc Welder n/a Anesthesia Type: other (none) Estimated Blood Loss: minimal Transfusion none Specimen bone Grafts/Implants none Complications none Procedure Description Risks, benefits, alternatives reviewed and agreed upon with patient. Patient placed in his own bed in right lateral decubitus. Area was prepped and draped in sterile fashion. Timeout was performed. Using scalpel and curette, the necrotic tissue and debris of the sacral skin, subcutaneous, muscle/fascia and bone were debrided to healthier edges. Bone sample was obtained. Wound made hemostatic using direct applied pressure. Area was irrigated with iodine and packed with iodine moistened gauze. Dry dressing placed to cover. FERNANDO DÍAZ NP Mar 18, 2018 11:49
--- NOTE | 2018-03-18 13:36 | CONS ---
Date/Time of Note Date/Time of Note DATE: 03/18/18 TIME: 13:35 Assessment/Plan Assessment/Plan Hospital Course All noted. Looks comfortable, no fevers Antimicrobials: Status post fluconazole ampicillin Levaquin Microbiology: Right heel wound culture grew enterococcus and Enterobacter cloacae, Sacral wound culture grew VRE, Perla albicans, coag negative staph Physical examination: Well-nourished well-developed middle-aged man who is awake in no distress. Head atraumatic normocephalic sclera nonicteric vehicle mucosa dry neck is supple chest rise symmetrical breath sounds diminished bases heart S1-S2. Abdomen soft bowel sounds present. Extremities without cyanosis. Assessment: 1. Right foot ulceration status post debridement down to muscle 2. Stage III sacral wound, s/p debridement 03/10/18 3. Paraplegia 4. Hypertension 5. Diabetes Plan: Patient remains stable, off antibiotics, continue wound care per surgical and podiatry rec-s. Consultation Date/Type/Reason Admit Date/Time Jan 26, 2018 at 08:29 Initial Consult Date 02/12/18 Type of Consult id Requesting Provider: LIVIA ADAME V. BAND BUILDER Exam/Review of Systems Vital Signs Vitals Vital Signs Date Temp Pulse Resp B/P (MAP) Pulse Ox O2 O2 Flow FiO2 Time Delivery Rate 03/18/18 98.6 64 20 111/66 96 08:00 (81) 03/17/18 Room Air 14:00 Intake and Output 03/17/18 03/17/18 03/18/18 1515:00 23:00 07:00 IntakeIntake Total 1040 ml 400 ml OutputOutput Total 950 ml 900 ml BalanceBalance 1040 ml -550 ml -900 ml Medications Medications Current Medications IV Flush (NS 3 ml) 3 ml PER PROTOCOL IV ; Start 01/25/18 at 15:30 Ondansetron HCl (Zofran Inj) 4 mg Q6H PRN IV NAUSEA AND/OR VOMITING; Start 01/25/18 at 15:30 Acetaminophen (Tylenol Tab) 650 mg Q6H PRN PO PAIN LEVEL 1-3 OR FEVER Last administered on 03/17/18at 20:53; Admin Dose 650 MG; Start 01/25/18 at 15:30 Acetaminophen/ Hydrocodone Bitart ([place] (5/325)) 1 tab Q6H PRN PO MODERATE PAIN LEVEL 4-6 Last administered on 03/18/18 01:23; Admin Dose 1 TAB; Start 01/25/18 at 15:30 Allopurinol (Zyloprim) 100 mg DAILY PO Last administered on 03/18/18 09:17; Admin Dose 100 MG; Start 01/26/18 at 09:00 Baclofen (Lioresal) 10 mg TID PO Last administered on 03/18/18 13:09; Admin Dose 10 MG; Start 01/25/18 at 21:00 Carvedilol (Coreg) 12.5 mg BID PO Last administered on 03/17/18 08:56; Admin Dose 12.5 MG; Start 01/25/18 at 21:00 Duloxetine HCl (Cymbalta) 30 mg DAILY PO Last administered on 03/18/18 09:17; Admin Dose 30 MG; Start 01/26/18 at 09:00 Famotidine (Pepcid) 20 mg BID PO Last administered on 03/18/18 09:16; Admin Dose 20 MG; Start 01/25/18 at 21:00 Folic Acid (Folic Acid) 1 mg DAILY PO Last administered on 03/18/18 09:17; Admin Dose 1 MG; Start 01/26/18 at 09:00 Gabapentin (Neurontin) 100 mg BID PO Last administered on 03/18/18 09:16; Admin Dose 100 MG; Start 01/25/18 at 21:00 Magnesium Oxide (Mag-Ox 400) 400 mg BID PO Last administered on 03/18/18 09:16; Admin Dose 400 MG; Start 01/25/18 at 21:00 Nystatin 1 applic BID TOP Last administered on 03/18/18 09:17; Admin Dose 1 APPLIC; Start 01/25/18 at 21:00 Pyridoxine HCl (Vitamin B6) 50 mg DAILY PO Last administered on 03/18/18 09:16; Admin Dose 50 MG; Start 01/26/18 at 09:00 Risperidone (Risperdal) 1 mg QHS PO Last administered on 03/17/18 20:52; Admin Dose 1 MG; Start 01/25/18 at 21:00 Zonisamide (Zonegran) 300 mg QHS PO Last administered on 03/17/18 20:51; Admin Dose 300 MG; Start 01/25/18 at 21:00 Eye Lubricant (Artificial Tears Oph) 1 drop Q8 BOTH EYES Last administered on 03/18/18 13:10; Admin Dose 1 DROP; Start 01/25/18 at 22:00 Miscellaneous Information (Pending Santyl Order For Wound Care) This patient woody... PRN PRN XX wound; Start 01/25/18 at 16:30 Vitamin A/Vitamin D (Vitamin A & D Oint) 1 applic BID TOP Last administered on 03/17/18 20:55; Admin Dose 1 APPLIC; Start 01/26/18 at 21:00 Docusate Sodium (Colace) 200 mg BID PO Last administered on 03/18/18 09:17; Admin Dose 200 MG; Start 01/27/18 at 21:00 Enoxaparin Sodium (Lovenox) 40 mg DAILY SC Last administered on 03/18/18 09:19; Admin Dose 40 MG; Start 01/28/18 at 09:00 Sodium Hypochlorite (Dakin'S (Dilute )) 1 applic DAILY IRR Last administered on 03/16/18 08:58; Admin Dose 1 APPLIC; Start 01/27/18 at 18:30 Collagenase (Santyl) 1 applic DAILY TOP Last administered on 03/16/18 08:57; Admin Dose 1 APPLIC; Start 01/27/18 at 17:30 Collagenase (Santyl) 1 applic DAILY TOP Last administered on 03/16/18 08:57; Admin Dose 1 APPLIC; Start 02/04/18 at 09:00 Nitroglycerin (Nitroglycerin (Sl Tab) 0.4 Mg) 1 tab Q5M PRN SL ANGINA; Start 02/05/18 at 07:00 Diphenhydramine HCl (Benadryl) 25 mg Q6H PRN IV itching Last administered on 02/20/18at 09:57; Admin Dose 25 MG; Start 02/19/18 at 14:00 Silver Sulfadiazine (Thermazene 1% 25 Gm) 1 applic DAILY TOP Last administered on 03/17/18 09:18; Admin Dose 1 APPLIC; Start 03/07/18 at 09:00 Zinc Sulfate (Zinc Sulfate) 220 mg DAILY PO Last administered on 03/18/18 09:16; Admin Dose 220 MG; Start 03/12/18 at 14:30 Ascorbic Acid (Vitamin C) 500 mg DAILY PO Last administered on 03/18/18at 09:17; Admin Dose 500 MG; Start 03/12/18 at 14:30 Multivitamins Therapeutic (Theragran) 1 tab DAILY PO Last administered on 03/18/18at 09:16; Admin Dose 1 TAB; Start 03/12/18 at 14:30 Magnesium Hydroxide (Milk Of Mag) 30 ml DAILY PRN PO CONSTIPATION; Start 03/13/18 at 13:00 DINA VICTOR NP Mar 18, 2018 13:35
[2018-03-18 14:00] VITALS: BP 132/64; PULSE 64; RESP 18
--- NOTE | 2018-03-18 14:51 | NUR ---
LA PLANNING UPDATE: SPOKE TO HIS CRATE REPAIRER MCKAYLA WHO TOLD ME THAT HE HAS A PLACE FOR HIM IN [place]; HE SAID THAT HE GOT AUTHORIZATION FROM HIS INSURANCE HEALTH [facility] FOR THE SNF HE IS GOING TO, ASKED HIM TO GIVE ME AUTH # SO I CAN TRANSFER PATIENT TO THAT FACILITY, TOLD ME TO WAIT FOR HIS CALL RE AUTH #.ANANTH MATHIS, @ [phone], LEFT MESSAGE TO CALL ME REGARDING THIS PATIENT. [facility] REGARDING LIZA BETTS ADM DIRECTOR NOT AVAILABLE AGAIN FOR THE 3RD DAY, LEFT MESSAGE TO CALL ME. [facility] TEL# [phone] Addendum: 03/18/18 at 1458 by GENOVEVA GONSALES CM Amended: Links added.
--- NOTE | 2018-03-18 16:16 | PN ---
Date/Time of Note Date/Time of Note DATE: 03/18/18 TIME: 16:16 Objective Vitals Vital Signs Date Temp Pulse Resp B/P (MAP) Pulse Ox O2 O2 Flow FiO2 Time Delivery Rate 03/18/18 98.6 64 18 132/64 96 14:00 (86) 03/17/18 Room Air 14:00 Intake and Output 03/17/18 03/17/18 03/18/18 1515:00 23:00 07:00 IntakeIntake Total 1040 ml 400 ml OutputOutput Total 950 ml 900 ml BalanceBalance 1040 ml -550 ml -900 ml Medications Medications Current Medications IV Flush (NS 3 ml) 3 ml PER PROTOCOL IV ; Start 01/25/18 at 15:30 Ondansetron HCl (Zofran Inj) 4 mg Q6H PRN IV NAUSEA AND/OR VOMITING; Start 01/25/18 at 15:30 Acetaminophen (Tylenol Tab) 650 mg Q6H PRN PO PAIN LEVEL 1-3 OR FEVER Last administered on 03/17/18 20:53; Admin Dose 650 MG; Start 01/25/18 at 15:30 Acetaminophen/ Hydrocodone Bitart ([place] (5/325)) 1 tab Q6H PRN PO MODERATE PAIN LEVEL 4-6 Last administered on 03/18/18 01:23; Admin Dose 1 TAB; Start 01/25/18 at 15:30 Allopurinol (Zyloprim) 100 mg DAILY PO Last administered on 03/18/18 09:17; Admin Dose 100 MG; Start 01/26/18 at 09:00 Baclofen (Lioresal) 10 mg TID PO Last administered on 03/18/18 13:09; Admin Dose 10 MG; Start 01/25/18 at 21:00 Carvedilol (Coreg) 12.5 mg BID PO Last administered on 03/17/18 08:56; Admin Dose 12.5 MG; Start 01/25/18 at 21:00 Duloxetine HCl (Cymbalta) 30 mg DAILY PO Last administered on 03/18/18 09:17; Admin Dose 30 MG; Start 01/26/18 at 09:00 Famotidine (Pepcid) 20 mg BID PO Last administered on 03/18/18 09:16; Admin Dose 20 MG; Start 01/25/18 at 21:00 Folic Acid (Folic Acid) 1 mg DAILY PO Last administered on 03/18/18 09:17; Admin Dose 1 MG; Start 01/26/18 at 09:00 Gabapentin (Neurontin) 100 mg BID PO Last administered on 03/18/18 09:16; Admin Dose 100 MG; Start 01/25/18 at 21:00 Magnesium Oxide (Mag-Ox 400) 400 mg BID PO Last administered on 03/18/18 09:16; Admin Dose 400 MG; Start 01/25/18 at 21:00 Nystatin 1 applic BID TOP Last administered on 03/18/18 09:17; Admin Dose 1 APPLIC; Start 01/25/18 at 21:00 Pyridoxine HCl (Vitamin B6) 50 mg DAILY PO Last administered on 03/18/18 09:16; Admin Dose 50 MG; Start 01/26/18 at 09:00 Risperidone (Risperdal) 1 mg QHS PO Last administered on 03/17/18 20:52; Admin Dose 1 MG; Start 01/25/18 at 21:00 Zonisamide (Zonegran) 300 mg QHS PO Last administered on 03/17/18 20:51; Admin Dose 300 MG; Start 01/25/18 at 21:00 Eye Lubricant (Artificial Tears Oph) 1 drop Q8 BOTH EYES Last administered on 03/18/18 13:10; Admin Dose 1 DROP; Start 01/25/18 at 22:00 Miscellaneous Information (Pending [facility] Order For Wound Care) This patient woody... PRN PRN XX wound; Start 01/25/18 at 16:30 Vitamin A/Vitamin D (Vitamin A & D Oint) 1 applic BID TOP Last administered on 03/17/18 20:55; Admin Dose 1 APPLIC; Start 01/26/18 at 21:00 Docusate Sodium (Colace) 200 mg BID PO Last administered on 03/18/18 09:17; Admin Dose 200 MG; Start 01/27/18 at 21:00 Enoxaparin Sodium (Lovenox) 40 mg DAILY SC Last administered on 03/18/18 09:19; Admin Dose 40 MG; Start 01/28/18 at 09:00 Sodium Hypochlorite (Dakin'S (Dilute )) 1 applic DAILY IRR Last administered on 03/16/18 08:58; Admin Dose 1 APPLIC; Start 01/27/18 at 18:30 Collagenase (Santyl) 1 applic DAILY TOP Last administered on 03/16/18 08:57; Admin Dose 1 APPLIC; Start 01/27/18 at 17:30 Collagenase (Santyl) 1 applic DAILY TOP Last administered on 03/16/18 08:57; Admin Dose 1 APPLIC; Start 02/04/18 at 09:00 Nitroglycerin (Nitroglycerin (Sl Tab) 0.4 Mg) 1 tab Q5M PRN SL ANGINA; Start 02/05/18 at 07:00 Diphenhydramine HCl (Benadryl) 25 mg Q6H PRN IV itching Last administered on 02/20/18at 09:57; Admin Dose 25 MG; Start 02/19/18 at 14:00 Silver Sulfadiazine (Thermazene 1% 25 Gm) 1 applic DAILY TOP Last administered on 03/17/18 09:18; Admin Dose 1 APPLIC; Start 03/07/18 at 09:00 Zinc Sulfate (Zinc Sulfate) 220 mg DAILY PO Last administered on 03/18/18 09:16; Admin Dose 220 MG; Start 03/12/18 at 14:30 Ascorbic Acid (Vitamin C) 500 mg DAILY PO Last administered on 03/18/18 09:17; Admin Dose 500 MG; Start 03/12/18 at 14:30 Multivitamins Therapeutic (Theragran) 1 tab DAILY PO Last administered on 03/18/18 09:16; Admin Dose 1 TAB; Start 03/12/18 at 14:30 Magnesium Hydroxide (Milk Of Mag) 30 ml DAILY PRN PO CONSTIPATION; Start 03/13/18 at 13:00 VTE Prophylaxis Risk score (from Nsg)>0 risk: 4 SCD applied (from Ns): No SCD contraindication: other Lines/Catheters IV Catheter Type: Benavidez in Place: No Assessment/Plan Hospital Course Subjective No acute changes overnight Objective Physical exam General: Patient is laying in bed and answers questions appropriately, does not have feeling below the shoulders Mentation: Patient is alert and oriented 4, Head: Normocephalic atraumatic Eyes: EOMI, pupils reactive to light Neck: Supple, nontender, midline Respiratory: Clear to auscultation bilaterally Cardiovascular: regular rate, no obvious murmurs Gastrointestinal: non-tender to palpation, bowel sounds heard. 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 1. Bilateral heel Decub ulcers without evidence of OM -s/p excisional debridement of bilateral heel decubitus wounds 01/26=>.Wound cultures: Enterobacter cloacae -Left heel resolved -ulcers progressed on Rt heel => Repeat Bedside debridement and application of wound vac 03/04/18 -Antibiotic management per ID=>on orals for now -Wound care 2. Paraplegia secondary to spinal disorder and back surgery 6 months ago -Exact nature of disorder and surgery unclear -Continue baclofen 3. Depression -Continue home Cymbalta 4. Hypertension -Continue Coreg 5. Debility secondary to #2. -Patient resides in a alf. 6. Chronic anemia with mild iron deficiency. -s/p tx 02/03=>stable H&H -Continue oral iron replacement. 7. Unstageable pressure ulcers, sacral coccyx -S/p bedside debridement 02/13/18=> deteriorates further secondary to immobili zation/noncompliance with nursing turning protocol. -Repeat debridement 03/10/2018 w/ application of wound VAC -WC: VANCO RESISTANT enterococcus 3+, coag negative staph 1+, alpha hemolytic strep 1+. -On appropriate antimicrobials -Continue wound care -Add vitamin C/zinc/Theragen. Continue protein supplements. -Dietary Consult 8. Constipation -Continue stool softeners. PRN laxative Prophylaxis:Lovenox/Pepcid Diet: Regular CODE STATUS: Full code Disposition: Wound care/antibiotics. Pending alf placement MARC CHAN Mar 18, 2018 16:16
[2018-03-18 20:00] VITALS: BP 112/70; PULSE 96; RESP 18
[2018-03-18] MEDS: ZONISAMIDE 100 MG CAP PO SCH (20:34)
[2018-03-18] MEDS: RISPERIDONE 1 MG TAB PO SCH (20:35)
[2018-03-18] MEDS: ACETAMINOPHEN 325 MG TAB PO PRN (20:36)
[2018-03-19] MEDS: HYDROCODONE/APAP (5/325) TAB PO PRN ×3 (00:55→18:28)
[2018-03-19 02:00] VITALS: BP 94/50; PULSE 83; RESP 17
[2018-03-19] MEDS: ARTIFICIAL TEARS 15 ML OPH BOTH EYES SCH ×3 (06:28→22:06)
[2018-03-19 08:00] VITALS: BP 123/77; PULSE 84; RESP 18
[2018-03-19] MEDS: ALLOPURINOL 100 MG TAB PO SCH (08:28)
[2018-03-19] MEDS: DULOXETINE 30 MG CAP DR PO SCH (08:28)
[2018-03-19] MEDS: FOLIC ACID 1 MG TAB PO SCH (08:28)
[2018-03-19] MEDS: BACLOFEN 10 MG TAB PO SCH ×3 (08:28→20:42)
[2018-03-19] MEDS: DOCUSATE SODIUM 100 MG CAP PO SCH ×2 (08:29→20:42)
[2018-03-19] MEDS: GABAPENTIN 100 MG CAP PO SCH ×2 (08:29→20:42)
[2018-03-19] MEDS: ASCORBIC ACID 500 MG TAB PO SCH (08:29)
[2018-03-19] MEDS: FAMOTIDINE 20 MG TAB PO SCH ×2 (08:29→20:42)
[2018-03-19] MEDS: MULTIVITAMINS THERAPEUTIC TAB PO SCH (08:29)
[2018-03-19] MEDS: MAGNESIUM OXIDE 400 MG TAB PO SCH ×2 (08:29→20:42)
[2018-03-19] MEDS: SODIUM HYPOCHLORITE (1/40) 1 APPLIC BTL IRR SCH (08:30)
[2018-03-19] MEDS: PYRIDOXINE 50 MG TAB PO SCH (08:32)
[2018-03-19] MEDS: COLLAGENASE 5 GM (UD JAR) TOP SCH ×2 (08:33)
[2018-03-19] MEDS: VITAMIN A & D 5 GM OINT PACKET TOP SCH ×2 (08:33→20:43)
[2018-03-19] MEDS: BALSAM PERU/CASTOR OIL 60 GM TUBE TOP SCH (08:33)
[2018-03-19] MEDS: SILVER SULFADIAZINE 1% 25 GM CR TOP SCH (08:33)
[2018-03-19] MEDS: ENOXAPARIN 40 MG/0.4 ML SYG SC SCH (08:34)
[2018-03-19] MEDS: NYSTATIN 15 GM POWDER BTL TOP SCH ×2 (08:34→20:46)
[2018-03-19] MEDS: ZINC SULFATE 220 MG CAP PO SCH (08:36)
--- NOTE | 2018-03-19 08:40 | NUR ---
PT reassessment Therapy day number 18 Subjective Denies pain Pain Scale NUMERIC Pain Intensity 0 (0-10) Patient Stated Goal for Pain Relief 0 (0-10) Pain Level Comment denies pain Pre Treatment Vital Signs Stable Yes Exercise Assessment Label Bilat Lower Extremity Exercise Type Passive ROM Additional Exercise Comments PROM, manual stretching, UE scap ther-ex Exercise Start Time 08:40 Exercise End Time 09:10 Total Exercise Time 30 min (8-127) Safety Judgement Good Activity Tolerance Fair Equipment Present Drains Benavidez Catheter Additional Equipment Present 2 wound vac Post Treatment Pain Intensity 0 0-10 Additional Post Treatment Comment See note Total Treament Time 30 min (8-127) Total Minutes 30 Total Units 2 PT Technical Record Comment S: Pt in bed, agreeable to PT intervention "my legs are very important to me". Patient cleared for activity per RN O: PT intervention completed, pt returned back to bed following therapy intervention with call light within reach and bed alarm activated. Performed ROM assessment and strength testing. Spoke to RN regarding pt response to activity and PT plan of care. No reports of pain, dizziness, or shortness of breath with activity. A: Patient presents with fair UE strength within functional range, with limitations to L shoulder flexion and abduction, B elbow supination and pronation and B wrist flexion with limitations to hand strength. Patient has no sensation from roughly T4 down, and presents with occasional muscle contraction of BLE without changes in tone. Patient understanding of limitations and receptive to PT education. Based on patient presentation, pt could benefit from use of overhead frame trapeze to assist in mobility. patient could continue to benefit from skilled inpatient PT to improve scooting and transferring with preparation of slideboard transfers and wc mobility. P: edge of bed mobility in preparation for slide board transfer
--- NOTE | 2018-03-19 10:51 | PN ---
Date/Time of Note Date/Time of Note DATE: 03/19/18 TIME: 10:47 Assessment/Plan Lines/Catheters IV Catheter Type (from [facility]): Saline Lock Benavidez in Place (from Nrs): Yes Assessment/Plan Chief Complaint/Hosp Course 1. Stage 4 necrotic wound: s/p repeat excisional debridement 03/19/18, bone sample sent for path; status post I&D&D of right thigh blister -cont local care> Santyl to sacrum > consider follow ups at wound care clinic near where he will be discharged> wound VAC to sacrum-nursing to track tube in order to prevent equipment related skin damage -Continue Silver ointment to right thigh blister (S/P I&D) -frequent turning and [id number]-[id number]-[id number] with patient importance of frequent turning however per nursing patient always returns to his back after being repositioned-once again reinforced importance of offloading -low air loss mattress -vitamin c -short term zinc -optimize nutrition -skin protection against devices -further debridement prn -follow bone path 2. Bilateral lower extremity ulcers: with wound vac -As above -Per podiatry 3. Hypochromic microcytic anemia: -Monitor and transfuse as needed 4. Depression: -Psychiatric optimization 5. Paraplegia -Supportive 6. Hypertension -nutrition and medication optimization Thank you. Patient seen and examined in collaboration with Dr. Brian Angulo. Subjective 24 Hr Interval Summary Feels well. s/p ex slava sacrum yesterday. No fevers, chills, sob, congested cough, cp, palpitations, woody, dizziness, n/v/d/dysuria. Exam/Review of Systems Vital Signs Vitals Vital Signs Date Temp Pulse Resp B/P (MAP) Pulse Ox O2 O2 Flow FiO2 Time Delivery Rate 03/19/18 97.8 84 18 123/77 96 08:00 (92) 03/17/18 Room Air 14:00 Intake and Output 03/18/18 03/18/18 03/19/18 1414:59 22:59 06:59 IntakeIntake Total 800 ml 380 ml 300 ml OutputOutput Total 850 ml 800 ml BalanceBalance 800 ml -470 ml -500 ml Exam Free Text/Dictation Constitutional: alert, oriented Psych: nl mood/affect, anxiety (Minimal) Head: normocephalic, atraumatic Eyes: nl conjunctiva, EOMI, nl sclera ENMT: nl external ears & nose, nl lips & teeth, mucosa pink and moist Neck: supple, non-tender Respiratory: normal air movement; No congested cough Cardiovascular: regular rate and rhythm; No edema Gastrointestinal: soft, non-tender; No distended Musculoskeletal: nl extremities to inspection; No nl gait and stance Extremities: normal pulses; No edema Neurological: nl mental status, nl speech Skin: nl turgor, Sacral wound: no periwound erythema, minimal drainage (serosanguineous), wound vac; wound vac to lower leg; right thigh skin blister (improving-healing) Results Result Diagram: 03/19/1860203/19/1803 FERNANDO DÍAZ NP Mar 19, 2018 10:50
--- NOTE | 2018-03-19 11:07 | NUR ---
DC UPDATE: SPOKE TO ADMISSION DIRECTOR LIZA MUNSON [facility], PROVIDED HER TEL# CHARLES PENA OF [facility] TO FF UP [place]OXANE; WOUND VAC NEEDED WILL BE ORDERED BY HER. Addendum: 03/19/18 at 1109 by GENOVEVA GONSALES CM Amended: Links added. Addendum: 03/19/18 at 1138 by GENOVEVA GONSALES CM SPOKE TO KARRI DONOVAN [phone] ADMISSIONS AT [facility] CHOICE OF EX AND WATCHMAKER APPRENTICE MCKAYLA [phone] FAXED CLINICALS REQUESTED, AWAITS CALL BACK Addendum: 03/19/18 at 1339 by GENOVEVA GONSALES SPOKE TO KARRI MATHIS, NOT GETTING PATIENT , PER [facility]OL[facility]MP INSTALL[facility]
[2018-03-19 14:00] VITALS: BP 102/59; PULSE 76; RESP 18
--- NOTE | 2018-03-19 14:11 | PN ---
Date/Time of Note Date/Time of Note DATE: 03/19/18 TIME: 14:10 Objective Vitals Vital Signs Date Temp Pulse Resp B/P (MAP) Pulse Ox O2 O2 Flow FiO2 Time Delivery Rate 03/19/18 97.8 84 18 123/77 96 08:00 (92) 03/17/18 Room Air 14:00 Intake and Output 03/18/18 03/18/18 03/19/18 1515:00 23:00 07:00 IntakeIntake Total 800 ml 380 ml 300 ml OutputOutput Total 850 ml 800 ml BalanceBalance 800 ml -470 ml -500 ml Results Result Diagram: 03/19/18 0603 03/19/18 0603 Medications Medications Current Medications IV Flush (NS 3 ml) 3 ml PER PROTOCOL IV ; Start 01/25/18 at 15:30 Ondansetron HCl (Zofran Inj) 4 mg Q6H PRN IV NAUSEA AND/OR VOMITING; Start 01/25/18 at 15:30 Acetaminophen (Tylenol Tab) 650 mg Q6H PRN PO PAIN LEVEL 1-3 OR FEVER Last administered on 03/18/18 20:36; Admin Dose 650 MG; Start 01/25/18 at 15:30 Acetaminophen/ Hydrocodone Bitart ([place] (5/325)) 1 tab Q6H PRN PO MODERATE JOSAFAT N LEVEL 4-6 Last administered on 03/19/18 06:54; Admin Dose 1 TAB; Start 01/25/18 at 15:30 Allopurinol (Zyloprim) 100 mg DAILY PO Last administered on 03/19/18 08:28; Admin Dose 100 MG; Start 01/26/18 at 09:00 Baclofen (Lioresal) 10 mg TID PO Last administered on 03/19/18 08:28; Admin Dose 10 MG; Start 01/25/18 at 21:00 Carvedilol (Coreg) 12.5 mg BID PO Last administered on 03/18/18 20:36; Admin Dose 12.5 MG; Start 01/25/18 at 21:00 Duloxetine HCl (Cymbalta) 30 mg DAILY PO Last administered on 03/19/18 08:28; Admin Dose 30 MG; Start 01/26/18 at 09:00 Famotidine (Pepcid) 20 mg BID PO Last administered on 03/19/18 08:29; Admin Dose 20 MG; Start 01/25/18 at 21:00 Folic Acid (Folic Acid) 1 mg DAILY PO Last administered on 03/19/18 08:28; Admin Dose 1 MG; Start 01/26/18 at 09:00 Gabapentin (Neurontin) 100 mg BID PO Last administered on 03/19/18 08:29; Admin Dose 100 MG; Start 01/25/18 at 21:00 Magnesium Oxide (Mag-Ox 400) 400 mg BID PO Last administered on 03/19/18 08:29; Admin Dose 400 MG; Start 01/25/18 at 21:00 Nystatin 1 applic BID TOP Last administered on 03/19/18 08:34; Admin Dose 1 APPLIC; Start 01/25/18 at 21:00 Pyridoxine HCl (Vitamin B6) 50 mg DAILY PO Last administered on 03/19/18 08:32; Admin Dose 50 MG; Start 01/26/18 at 09:00 Risperidone (Risperdal) 1 mg QHS PO Last administered on 03/18/18 20:35; Admin Dose 1 MG; Start 01/25/18 at 21:00 Zonisamide (Zonegran) 300 mg QHS PO Last administered on 03/18/18 20:34; Admin Dose 300 MG; Start 01/25/18 at 21:00 Eye Lubricant (Artificial Tears Oph) 1 drop Q8 BOTH EYES Last administered on 03/19/18 06:28; Admin Dose 1 DROP; Start 01/25/18 at 22:00 Miscellaneous Information (Pending [facility] Order For Wound Care) This patient woody... PRN PRN XX wound; Start 01/25/18 at 16:30 Vitamin A/Vitamin D (Vitamin A & D Oint) 1 applic BID TOP Last administered on 03/19/18 08:33; Admin Dose 1 APPLIC; Start 01/26/18 at 21:00 Docusate Sodium (Colace) 200 mg BID PO Last administered on 03/19/18 08:29; Admin Dose 200 MG; Start 01/27/18 at 21:00 Enoxaparin Sodium (Lovenox) 40 mg DAILY SC Last administered on 03/19/18 08:34; Admin Dose 40 MG; Start 01/28/18 at 09:00 Sodium Hypochlorite (Dakin'S (Dilute )) 1 applic DAILY IRR Last administered on 03/16/18 08:58; Admin Dose 1 APPLIC; Start 01/27/18 at 18:30 Collagenase (Santyl) 1 applic DAILY TOP Last administered on 03/16/18 08:57; Admin Dose 1 APPLIC; Start 01/27/18 at 17:30 Collagenase (Santyl) 1 applic DAILY TOP Last administered on 03/16/18 08:57; Admin Dose 1 APPLIC; Start 02/04/18 at 09:00 Nitroglycerin (Nitroglycerin (Sl Tab) 0.4 Mg) 1 tab Q5M PRN SL ANGINA; Start 02/05/18 at 07:00 Diphenhydramine HCl (Benadryl) 25 mg Q6H PRN IV itching Last administered on 02/20/18 09:57; Admin Dose 25 MG; Start 02/19/18 at 14:00 Silver Sulfadiazine (Thermazene 1% 25 Gm) 1 applic DAILY TOP Last administered on 03/17/18 09:18; Admin Dose 1 APPLIC; Start 03/07/18 at 09:00 Zinc Sulfate (Zinc Sulfate) 220 mg DAILY PO Last administered on 03/19/18 08:36; Admin Dose 220 MG; Start 03/12/18 at 14:30 Ascorbic Acid (Vitamin C) 500 mg DAILY PO Last administered on 03/19/18 08:29; Admin Dose 500 MG; Start 03/12/18 at 14:30 Multivitamins Therapeutic (Theragran) 1 tab DAILY PO Last administered on 03/19/18 08:29; Admin Dose 1 TAB; Start 03/12/18 at 14:30 Magnesium Hydroxide (Milk Of Mag) 30 ml DAILY PRN PO CONSTIPATION; Start 03/13/18 at 13:00 VTE Prophylaxis Risk score (from Nsg)>0 risk: 4 SCD applied (from Nsg): No SCD contraindication: other Lines/Catheters IV Catheter Type: Benavidez in Place: No Assessment/Plan Hospital Course Subjective No acute changes overnight Objective Physical exam General: Patient is laying in bed and answers questions appropriately, does not have feeling below the shoulders Mentation: Patient is alert and oriented 4, Head: Normocephalic atraumatic Eyes: EOMI, pupils reactive to light Neck: Supple, nontender, midline Respiratory: Clear to auscultation bilaterally Cardiovascular: regular rate, no obvious murmurs Gastrointestinal: non-tender to palpation, bowel sounds heard. Neurological: Moves upper extremities appropriately, no feeling or movement in the lower extremities Skin: No new skin lesions ASSESSMENT/PLAN: Very unfortunate 57-year-old male with a history of paraplegia secondary to spinal cord syndrome 6 months ago, who also resides in a custodial, presented to the emergency room with worsening bilateral heel ulcers with foul-smelling drainage.... 1. Bilateral heel Decub ulcers without evidence of OM -s/p excisional debridement of bilateral heel decubitus wounds 01/26=>.Wound cultures: Enterobacter cloacae -Left heel resolved -ulcers progressed on Rt heel => Repeat Bedside debridement and application of wound vac 03/04/18 -Antibiotic management per ID=>on orals for now -Wound care 2. Paraplegia secondary to spinal disorder and back surgery 6 months ago -Exact nature of disorder and surgery unclear -Continue baclofen 3. Depression -Continue home Cymbalta 4. Hypertension -Continue Coreg 5. Debility secondary to #2. -Patient resides in a custodial. 6. Chronic anemia with mild iron deficiency. -s/p tx 02/03=>stable H&H -Continue oral iron replacement. 7. Unstageable pressure ulcers, sacral coccyx -S/p bedside debridement 02/13/18=> deteriorates further secondary to immobilization/noncompliance with nursing turning protocol. -Repeat debridement 03/10/2018 w/ application of wound VAC -WC: VANCO RESISTANT enterococcus 3+, coag negative staph 1+, alpha hemolytic strep 1+. -On appropriate antimicrobials -Continue wound care -Add vitamin C/zinc/Theragen. Continue protein supplements. -Dietary Consult 8. Constipation -Continue stool softeners. PRN laxative Prophylaxis:Lovenox/Pepcid Diet: Regular CODE STATUS: Full code Disposition: Wound care/antibiotics. Pending custodial placement MARC CHAN Mar 19, 2018 14:11
--- NOTE | 2018-03-19 14:15 | CONS ---
Date/Time of Note Date/Time of Note DATE: 03/19/18 TIME: 14:14 Assessment/Plan Assessment/Plan Hospital Course Alert, feels good Antimicrobials: Status post fluconazole ampicillin Levaquin Microbiology: Right heel wound culture grew enterococcus and Enterobacter cloacae, Sacral wound culture grew VRE, Perla albicans, coag negative staph Physical examination: Well-nourished well-developed middle-aged man who is awake in no distress. Head atraumatic normocephalic sclera nonicteric vehicle mucosa dry neck is supple chest rise symmetrical breath sounds diminished bases heart S1-S2. Abdomen soft bowel sounds present. Extremities without cyanosis. Assessment: 1. Right foot ulceration status post debridement down to muscle 2. Stage III sacral wound, s/p debridement 03/10/18 3. Paraplegia 4. Hypertension 5. Diabetes Plan: Patient remains stable, off antibiotics, continue wound care per surgical and podiatry rec-s. Result Diagram: 03/19/18 0603 03/19/18 0603 Results 24hrs Laboratory Tests Test 03/19/18 06:03 White Blood Count 5.2 Red Blood Count 3.60 L Hemoglobin 9.1 L Hematocrit 29.2 L Mean Corpuscular Volume 81.1 L Mean Corpuscular Hemoglobin 25.3 L Mean Corpuscular Hemoglobin Concent 31.2 L Red Cell Distribution Width 15.1 H Platelet Count 333 Mean Platelet Volume 9.3 Immature Granulocytes % 0.400 Neutrophils % 42.6 Lymphocytes % 40.0 Monocytes % 10.3 Eosinophils % 6.3 Basophils % 0.4 Nucleated Red Blood Cells % 0.0 Immature Granulocytes # 0.020 Neutrophils # 2.2 Lymphocytes # 2.1 Monocytes # 0.5 Eosinophils # 0.3 Basophils # 0.0 Nucleated Red Blood Cells # 0.0 Sodium Level 138 Potassium Level 4.1 Chloride Level 106 Carbon Dioxide Level 23 Anion Gap 9 Blood Urea Nitrogen 27 H Creatinine 0.84 Est Glomerular Filtrat Rate mL/min > 60 Glucose Level 89 Calcium Level 9.7 Phosphorus Level 4.6 Magnesium Level 2.2 Consultation Date/Type/Reason Admit Date/Time Jan 26, 2018 at 08:29 Initial Consult Date 02/12/18 Type of Consult id Requesting Provider: LIVIA ADAME V. TONSORIAL ARTIST Exam/Review of Systems Vital Signs Vitals Vital Signs Date Temp Pulse Resp B/P (MAP) Pulse Ox O2 O2 Flow FiO2 Time Delivery Rate 03/19/18 97.8 84 18 123/77 96 08:00 (92) 03/17/18 Room Air 14:00 Intake and Output 03/18/18 03/18/18 03/19/18 1515:00 23:00 07:00 IntakeIntake Total 800 ml 380 ml 300 ml OutputOutput Total 850 ml 800 ml BalanceBalance 800 ml -470 ml -500 ml Medications Medications Current Medications IV Flush (NS 3 ml) 3 ml PER PROTOCOL IV ; Start 01/25/18 at 15:30 Ondansetron HCl (Zofran Inj) 4 mg Q6H PRN IV NAUSEA AND/OR VOMITING; Start 01/25/18 at 15:30 Acetaminophen (Tylenol Tab) 650 mg Q6H PRN PO PAIN LEVEL 1-3 OR FEVER Last administered on 03/18/18 20:36; Admin Dose 650 MG; Start 01/25/18 at 15:30 Acetaminophen/ Hydrocodone Bitart ([place] (5/325)) 1 tab Q6H PRN PO MODERATE PAIN LEVEL 4-6 Last administered on 03/19/18 06:54; Admin Dose 1 TAB; Start 01/25/18 at 15:30 Allopurinol (Zyloprim) 100 mg DAILY PO Last administered on 03/19/18 08:28; Admin Dose 100 MG; Start 01/26/18 at 09:00 Baclofen (Lioresal) 10 mg TID PO Last administered on 03/19/18 08:28; Admin Dose 10 MG; Start 01/25/18 at 21:00 Carvedilol (Coreg) 12.5 mg BID PO Last administered on 03/18/18 20:36; Admin Dose 12.5 MG; Start 01/25/18 at 21:00 Duloxetine HCl (Cymbalta) 30 mg DAILY PO Last administered on 03/19/18 08:28; Admin Dose 30 MG; Start 01/26/18 at 09:00 Famotidine (Pepcid) 20 mg BID PO Last administered on 03/19/18 08:29; Admin Dose 20 MG; Start 01/25/18 at 21:00 Folic Acid (Folic Acid) 1 mg DAILY PO Last administered on 03/19/18 08:28; Admin Dose 1 MG; Start 01/26/18 at 09:00 Gabapentin (Neurontin) 100 mg BID PO Last administered on 03/19/18 08:29; Admin Dose 100 MG; Start 01/25/18 at 21:00 Magnesium Oxide (Mag-Ox 400) 400 mg BID PO Last administered on 03/19/18 08:29; Admin Dose 400 MG; Start 01/25/18 at 21:00 Nystatin 1 applic BID TOP Last administered on 03/19/18 08:34; Admin Dose 1 APPLIC; Start 01/25/18 at 21:00 Pyridoxine HCl (Vitamin B6) 50 mg DAILY PO Last administered on 03/19/18 08:32; Admin Dose 50 MG; Start 01/26/18 at 09:00 Risperidone (Risperdal) 1 mg QHS PO Last administered on 03/18/18 20:35; Admin Dose 1 MG; Start 01/25/18 at 21:00 Zonisamide (Zonegran) 300 mg QHS PO Last administered on 03/18/18 20:34; Admin Dose 300 MG; Start 01/25/18 at 21:00 Eye Lubricant (Artificial Tears Oph) 1 drop Q8 BOTH EYES Last administered on 03/19/18 06:28; Admin Dose 1 DROP; Start 01/25/18 at 22:00 Miscellaneous Information (Pending Santyl Order For Wound Care) This patient woody... PRN PRN XX wound; Start 01/25/18 at 16:30 Vitamin A/Vitamin D (Vitamin A & D Oint) 1 applic BID TOP Last administered on 03/19/18 08:33; Admin Dose 1 APPLIC; Start 01/26/18 at 21:00 Docusate Sodium (Colace) 200 mg BID PO Last administered on 03/19/18 08:29; Admin Dose 200 MG; Start 01/27/18 at 21:00 Enoxaparin Sodium (Lovenox) 40 mg DAILY SC Last administered on 03/19/18 08:34; Admin Dose 40 MG; Start 01/28/18 at 09:00 Sodium Hypochlorite (Dakin'S (Dilute 40)) 1 applic DAILY IRR Last administered on 03/16/18 08:58; Admin Dose 1 APPLIC; Start 01/27/18 at 18:30 Collagenase (Santyl) 1 applic DAILY TOP Last administered on 03/16/18 08:57; Admin Dose 1 APPLIC; Start 01/27/18 at 17:30 Collagenase (Santyl) 1 applic DAILY TOP Last administered on 03/16/18 08:57; Admin Dose 1 APPLIC; Start 02/04/18 at 09:00 Nitroglycerin (Nitroglycerin (Sl Tab) 0.4 Mg) 1 tab Q5M PRN SL ANGINA; Start 02/05/18 at 07:00 Diphenhydramine HCl (Benadryl) 25 mg Q6H PRN IV itching Last administered on 02/20/18at 09:57; Admin Dose 25 MG; Start 02/19/18 at 14:00 Silver Sulfadiazine (Thermazene 1% 25 Gm) 1 applic DAILY TOP Last administered on 03/17/18 09:18; Admin Dose 1 APPLIC; Start 03/07/18 at 09:00 Zinc Sulfate (Zinc Sulfate) 220 mg DAILY PO Last administered on 03/19/18 08:36; Admin Dose 220 MG; Start 03/12/18 at 14:30 Ascorbic Acid (Vitamin C) 500 mg DAILY PO Last administered on 03/19/18 08:29; Admin Dose 500 MG; Start 03/12/18 at 14:30 Multivitamins Therapeutic (Theragran) 1 tab DAILY PO Last administered on 03/19/18 08:29; Admin Dose 1 TAB; Start 03/12/18 at 14:30 Magnesium Hydroxide (Milk Of Mag) 30 ml DAILY PRN PO CONSTIPATION; Start 03/13/18 at 13:00 DINA VICTOR NP Mar 19, 2018 14:15
[2018-03-19 20:00] VITALS: BP 114/68; PULSE 84; RESP 18
[2018-03-19] MEDS: RISPERIDONE 1 MG TAB PO SCH (20:42)
[2018-03-19] MEDS: ZONISAMIDE 100 MG CAP PO SCH (20:42)
[2018-03-20 02:00] VITALS: BP 101/61; PULSE 75; RESP 18
[2018-03-20] MEDS: ARTIFICIAL TEARS 15 ML OPH BOTH EYES SCH ×3 (06:43→22:09)
[2018-03-20 08:27] VITALS: BP 103/60; PULSE 80; RESP 17
[2018-03-20] MEDS: COLLAGENASE 5 GM (UD JAR) TOP SCH ×2 (09:00)
[2018-03-20] MEDS: SODIUM HYPOCHLORITE (1/40) 1 APPLIC BTL IRR SCH (09:00)
[2018-03-20] MEDS: SILVER SULFADIAZINE 1% 25 GM CR TOP SCH (09:00)
--- NOTE | 2018-03-20 09:29 | PN ---
Date/Time of Note Date/Time of Note DATE: 03/20/18 TIME: 09:28 Assessment/Plan Lines/Catheters IV Catheter Type (from [facility]): Saline Lock Benavidez in Place (from [facility]): Yes Assessment/Plan Chief Complaint/Hosp Course 1. Stage 4 necrotic wound: s/p repeat excisional debridement 03/19/18, bone sample sent for path; status post I&D&D of right thigh blister; bone path noted: gangrenous necrosis -cont local care> Santyl to sacrum > consider follow ups at wound care clinic near where he will be discharged> wound VAC to sacrum-nursing to track tube in order to prevent equipment related skin damage -Continue Silver ointment to right thigh blister (S/P I&D) -frequent turning and [id number] with patient importance of frequent turning however per nursing patient always returns to his back after being repositioned-once again reinforced importance of offloading -low air loss mattress -vitamin c -short term zinc -optimize nutrition -skin protection against devices -further debridement prn 2. Bilateral lower extremity ulcers: with wound vac -As above -Per podiatry 3. Hypochromic microcytic anemia: -Monitor and transfuse as needed 4. Depression: -Psychiatric optimization 5. Paraplegia -Supportive 6. Hypertension -nutrition and medication optimization Thank you. Patient seen and examined in collaboration with Dr. Brian Angulo. Subjective 24 Hr Interval Summary Feels well. Bone path noted. No fevers, chills, sob, congested cough, cp, palpitations, woody, dizziness, n/v/d/dysuria. Exam/Review of Systems Vital Signs Vitals Vital Signs Date Temp Pulse Resp B/P (MAP) Pulse Ox O2 O2 Flow FiO2 Time Delivery Rate 03/20/18 97.6 80 17 103/60 98 Room Air 08:27 (74) Intake and Output 03/19/18 03/19/18 03/20/18 1515:00 23:00 07:00 IntakeIntake Total 750 ml 300 ml OutputOutput Total 800 ml 800 ml BalanceBalance -50 ml -500 ml Exam Free Text/Dictation Constitutional: alert, oriented Psych: nl mood/affect, anxiety (Minimal) Head: normocephalic, atraumatic Eyes: nl conjunctiva, EOMI, nl sclera ENMT: nl external ears & nose, nl lips & teeth, mucosa pink and moist Neck: supple, non-tender Respiratory: normal air movement; No congested cough Cardiovascular: regular rate and rhythm; No edema Gastrointestinal: soft, non-tender; No distended Musculoskeletal: nl extremities to inspection; No nl gait and stance Extremities: normal pulses; No edema Neurological: nl mental status, nl speech Skin: nl turgor, Sacral wound: no periwound erythema, minimal drainage (serosanguineous), wound vac; wound vac to lower leg; right thigh skin blister (improving-healing) Results Result Diagram: 03/19/1803 03/19/18 0603 FERNANDO DÍAZ NP Mar 20, 2018 09:29
[2018-03-20] MEDS: DULOXETINE 30 MG CAP DR PO SCH (10:12)
[2018-03-20] MEDS: ZINC SULFATE 220 MG CAP PO SCH (10:12)
[2018-03-20] MEDS: FOLIC ACID 1 MG TAB PO SCH (10:12)
[2018-03-20] MEDS: HYDROCODONE/APAP (5/325) TAB PO PRN ×2 (10:12→17:26)
[2018-03-20] MEDS: VITAMIN A & D 5 GM OINT PACKET TOP SCH ×2 (10:12→21:15)
[2018-03-20] MEDS: FAMOTIDINE 20 MG TAB PO SCH ×2 (10:13→21:16)
[2018-03-20] MEDS: ASCORBIC ACID 500 MG TAB PO SCH (10:13)
[2018-03-20] MEDS: ALLOPURINOL 100 MG TAB PO SCH (10:13)
[2018-03-20] MEDS: MULTIVITAMINS THERAPEUTIC TAB PO SCH (10:13)
[2018-03-20] MEDS: MAGNESIUM OXIDE 400 MG TAB PO SCH ×2 (10:13→21:16)
[2018-03-20] MEDS: GABAPENTIN 100 MG CAP PO SCH ×2 (10:13→21:16)
[2018-03-20] MEDS: DOCUSATE SODIUM 100 MG CAP PO SCH ×2 (10:13→21:16)
[2018-03-20] MEDS: BACLOFEN 10 MG TAB PO SCH ×3 (10:13→21:15)
[2018-03-20] MEDS: PYRIDOXINE 50 MG TAB PO SCH (10:13)
[2018-03-20] MEDS: BALSAM PERU/CASTOR OIL 60 GM TUBE TOP SCH (10:15)
[2018-03-20] MEDS: NYSTATIN 15 GM POWDER BTL TOP SCH ×2 (10:16→21:19)
[2018-03-20] MEDS: ENOXAPARIN 40 MG/0.4 ML SYG SC SCH (10:19)
--- NOTE | 2018-03-20 10:40 | NUR ---
DC PLANS UPDATE: SPOKE TO KARRI DONOVAN @ [facility], SAID PER HER MED DIRECTOR PATIENT SHOULD BE REFERRED BACK TO [facility]. FAXED TO [facility] [employer] FAXED TO ME BY MCKAYLA HIS BRUSHER AND SHEARER. HIS BRUSHER AND SHEARER CLAIMS THAT PATIENT HAS WORKERS COMPENSATION WHICH WILL BE RESPONSIBLE FOR HIS PLACEMENT/ FF UP [facility]ZA RE ROX[facility] WITH [facility],SSSSSSSSSSSSSSSSSSSSSSSSSSSSSSSSSSSSSSSSSSSSSSSSSSSSSSSSSSSSSSSSSSSSSSSSSSSSSSSSSSSSSS SSSSSSSSSSS [id number] SSSSSSSSSSSSSSSSSSSSSSSSSSSSSSSSSSSSSSSSSSSSSSSSSSSSSSSSSSSSSSSSSSSSSSSSSSSSSSSSSSSSSSSSSSS Addendum: 03/20/18 at 1044 by GENOVEVA GONSALES CM Amended: Links added. Addendum: 03/20/18 at 1047 by GENOVEVA GONSALES REFERRED TO [facility]. PATIENT CAME FROM THERE [facility] AND ADMITTED HERE FOR MULTIPLE WOUNDS/ULCERS UPDATED CLINICAL INFORMATION FAXED TO [facility]. Addendum: 03/20/18 at 1113 by GENOVEVA GONSALES SPOKE TO PATIENT,ALERT AND ORIENTED, NOTIFIED HIM RE PENDING SNF PLACEMENT AT [facility]. [facility] IN [place] WHERE HIS SLOT SERVICE SPECIALIST MCKAYLA WANTED HIM TO GO TO BE BILLED BY [employer], HOWEVER PER KARRI DONOVAN, , AT [facility] , HER MED DIRECTOR WANTS HIM TO GO TO [facility] WHERE HE CAME FROM.
--- NOTE | 2018-03-20 14:12 | PN ---
Date/Time of Note Date/Time of Note DATE: 03/20/18 TIME: 14:12 Objective Vitals Vital Signs Date Temp Pulse Resp B/P (MAP) Pulse Ox O2 O2 Flow FiO2 Time Delivery Rate 03/20/18 97.6 80 17 103/60 98 Room Air 08:27 (74) Intake and Output 03/19/18 03/19/18 03/20/18 1515:00 23:00 07:00 IntakeIntake Total 750 ml 300 ml OutputOutput Total 800 ml 800 ml BalanceBalance -50 ml -500 ml Results Result Diagram: 03/19/18 0603 03/19/18 0603 Medications Medications Current Medications IV Flush (NS 3 ml) 3 ml PER PROTOCOL IV ; Start 01/25/18 at 15:30 Ondansetron HCl (Zofran Inj) 4 mg Q6H PRN IV NAUSEA AND/OR VOMITING; Start 01/25/18 at 15:30 Acetaminophen (Tylenol Tab) 650 mg Q6H PRN PO PAIN LEVEL 1-3 OR FEVER Last administered on 03/18/18 20:36; Admin Dose 650 MG; Start 01/25/18 at 15:30 Acetaminophen/ Hydrocodone Bitart ([place] (5/325)) 1 tab Q6H PRN PO MODERATE PAIN LEVEL 4-6 Last administered on 03/20/18 10:12; Admin Dose 1 TAB; Start 01/25/18 at 15:30 Allopurinol (Zyloprim) 100 mg DAILY PO Last administered on 03/20/18 10:13; Admin Dose 100 MG; Start 01/26/18 at 09:00 Baclofen (Lioresal) 10 mg TID PO Last administered on 03/20/18 10:13; Admin Dose 10 MG; Start 01/25/18 at 21:00 Carvedilol (Coreg) 12.5 mg BID PO Last administered on 03/19/18 20:43; Admin Dose 12.5 MG; Start 01/25/18 at 21:00 Duloxetine HCl (Cymbalta) 30 mg DAILY PO Last administered on 03/20/18 10:12; Admin Dose 30 MG; Start 01/26/18 at 09:00 Famotidine (Pepcid) 20 mg BID PO Last administered on 03/20/18 10:13; Admin Dose 20 MG; Start 01/25/18 at 21:00 Folic Acid (Folic Acid) 1 mg DAILY PO Last administered on 03/20/18 10:12; Admin Dose 1 MG; Start 01/26/18 at 09:00 Gabapentin (Neurontin) 100 mg BID PO Last administered on 03/20/18 10:13; Admin Dose 100 MG; Start 01/25/18 at 21:00 Magnesium Oxide (Mag-Ox 400) 400 mg BID PO Last administered on 03/20/18 10:13; Admin Dose 400 MG; Start 01/25/18 at 21:00 Nystatin 1 applic BID TOP Last administered on 03/20/18 10:16; Admin Dose 1 APPLIC; Start 01/25/18 at 21:00 Pyridoxine HCl (Vitamin B6) 50 mg DAILY PO Last administered on 03/20/18 10:13; Admin Dose 50 MG; Start 01/26/18 at 09:00 Risperidone (Risperdal) 1 mg QHS PO Last administered on 03/19/18 20:42; Admin Dose 1 MG; Start 01/25/18 at 21:00 Zonisamide (Zonegran) 300 mg QHS PO Last administered on 03/19/18 20:42; Admin Dose 300 MG; Start 01/25/18 at 21:00 Eye Lubricant (Artificial Tears Oph) 1 drop Q8 BOTH EYES Last administered on 03/20/18 06:43; Admin Dose 1 DROP; Start 01/25/18 at 22:00 Miscellaneous Information (Pending [facility] Order For Wound Care) This patient woody... PRN PRN XX wound; Start 01/25/18 at 16:30 Vitamin A/Vitamin D (Vitamin A & D Oint) 1 applic BID TOP Last administered on 03/20/18 10:12; Admin Dose 1 APPLIC; Start 01/26/18 at 21:00 Docusate Sodium (Colace) 200 mg BID PO Last administered on 03/20/18 10:13; Admin Dose 200 MG; Start 01/27/18 at 21:00 Enoxaparin Sodium (Lovenox) 40 mg DAILY SC Last administered on 03/20/18 10:19; Admin Dose 40 MG; Start 01/28/18 at 09:00 Sodium Hypochlorite (Dakin'S (Dilute 1/40)) 1 applic DAILY IRR Last administered on 03/16/18 08:58; Admin Dose 1 APPLIC; Start 01/27/18 at 18:30 Collagenase (Santyl) 1 applic DAILY TOP Last administered on 03/16/18 08:57; Admin Dose 1 APPLIC; Start 01/27/18 at 17:30 Collagenase (Santyl) 1 applic DAILY TOP Last administered on 03/16/18 08:57; Admin Dose 1 APPLIC; Start 02/04/18 at 09:00 Nitroglycerin (Nitroglycerin (Sl Tab) 0.4 Mg) 1 tab Q5M PRN SL ANGINA; Start 02/05/18 at 07:00 Diphenhydramine HCl (Benadryl) 25 mg Q6H PRN IV itching Last administered on 02/20/18at 09:57; Admin Dose 25 MG; Start 02/19/18 at 14:00 Silver Sulfadiazine (Thermazene 1% 25 Gm) 1 applic DAILY TOP Last administered on 03/17/18 09:18; Admin Dose 1 APPLIC; Start 03/07/18 at 09:00 Zinc Sulfate (Zinc Sulfate) 220 mg DAILY PO Last administered on 03/20/18 10:12; Admin Dose 220 MG; Start 03/12/18 at 14:30 Ascorbic Acid (Vitamin C) 500 mg DAILY PO Last administered on 03/20/18 10:13; Admin Dose 500 MG; Start 03/12/18 at 14:30 Multivitamins Therapeutic (Theragran) 1 tab DAILY PO Last administered on 03/20/18at 10:13; Admin Dose 1 TAB; Start 03/12/18 at 14:30 Magnesium Hydroxide (Milk Of Mag) 30 ml DAILY PRN PO CONSTIPATION; Start 03/13/18 at 13:00 VTE Prophylaxis Risk score (from Nsg)>0 risk: 4 SCD applied (from Nsg): No SCD contraindication: other Lines/Catheters IV Catheter Type: Benavidez in Place: No Assessment/Plan Hospital Course Subjective No acute changes overnight Objective Physical exam General: Patient is laying in bed and answers questions appropriately, does not have feeling below the shoulders Mentation: Patient is alert and oriented 4, Head: Normocephalic atraumatic Eyes: EOMI, pupils reactive to light Neck: Supple, nontender, midline Respiratory: Clear to auscultation bilaterally Cardiovascular: regular rate, no obvious murmurs Gastrointestinal: non-tender to palpation, bowel sounds heard. 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 1. Bilateral heel Decub ulcers without evidence of OM -s/p excisional debridement of bilateral heel decubitus wounds 01/26=>.Wound cultures: Enterobacter cloacae -Left heel resolved -ulcers progressed on Rt heel => Repeat Bedside debridement and application of wound vac 03/04/18 -Antibiotic management per ID=>on orals for now -Wound care 2. Paraplegia secondary to spinal disorder and back surgery 6 months ago -Exact nature of disorder and surgery unclear -Continue baclofen 3. Depression -Continue home Cymbalta 4. Hypertension -Continue Coreg 5. Debility secondary to #2. -Patient resides in a [facility]. 6. Chronic anemia with mild iron deficiency. -s/p tx 02/03=>stable H&H -Continue oral iron replacement. 7. Unstageable pressure ulcers, sacral coccyx -S/p bedside debridement 02/13/18=> deteriorates further secondary to immobilization/noncompliance with nursing turning protocol. -Repeat debridement 03/10/2018 w/ application of wound VAC -WC: VANCO RESISTANT enterococcus 3+, coag negative staph 1+, alpha hemolytic strep 1+. -On appropriate antimicrobials -Continue wound care -Add vitamin C/zinc/Theragen. Continue protein supplements. -Dietary Consult 8. Constipation -Continue stool softeners. PRN laxative Prophylaxis:Lovenox/Pepcid Diet: Regular CODE STATUS: Full code Disposition: Wound care/antibiotics. Pending mcc placement MARC CHAN Mar 20, 2018 14:12
[2018-03-20 14:19] VITALS: BP 92/58; PULSE 96; RESP 20
--- NOTE | 2018-03-20 14:58 | CONS ---
Date/Time of Note Date/Time of Note DATE: 03/20/18 TIME: 14:58 Assessment/Plan Assessment/Plan Hospital Course Alert, feels good Antimicrobials: Status post fluconazole ampicillin Levaquin Microbiology: Right heel wound culture grew enterococcus and Enterobacter cloacae, Sacral wound culture grew VRE, Perla albicans, coag negative staph Physical examination: Well-nourished well-developed middle-aged man who is awake in no distress. Head atraumatic normocephalic sclera nonicteric vehicle mucosa dry neck is supple chest rise symmetrical breath sounds diminished bases heart S1-S2. Abdomen soft bowel sounds present. Extremities without cyanosis. Assessment: 1. Right foot ulceration status post debridement down to muscle 2. Stage III sacral wound, s/p debridement 03/10/18 3. Paraplegia 4. Hypertension 5. Diabetes Plan: Patient remains stable, off antibiotics, continue wound care per surgical and podiatry rec-s. Result Diagram: 03/19/18 0603 03/19/18 0603 Consultation Date/Type/Reason Admit Date/Time Jan 26, 2018 at 08:29 Initial Consult Date 02/12/18 Type of Consult id Requesting Provider: LIVIA ADAME V. TRIMMING PRESS OPERATOR Exam/Review of Systems Vital Signs Vitals Vital Signs Date Temp Pulse Resp B/P (MAP) Pulse Ox O2 O2 Flow FiO2 Time Delivery Rate 03/20/18 97.9 96 20 92/58 (69) 99 Room Air 14:19 Intake and Output 03/19/18 03/19/18 03/20/18 1515:00 23:00 07:00 IntakeIntake Total 750 ml 300 ml OutputOutput Total 800 ml 800 ml BalanceBalance -50 ml -500 ml Medications Medications Current Medications IV Flush (NS 3 ml) 3 ml PER PROTOCOL IV ; Start 01/25/18 at 15:30 Ondansetron HCl (Zofran Inj) 4 mg Q6H PRN IV NAUSEA AND/OR VOMITING; Start at 15:30 Acetaminophen (Tylenol Tab) 650 mg Q6H PRN PO PAIN LEVEL 1-3 OR FEVER Last administered on 03/18/18at 20:36; Admin Dose 650 MG; Start 01/25/18 at 15:30 Acetaminophen/ Hydrocodone Bitart ([place] (5/325)) 1 tab Q6H PRN PO MODERATE PAIN LEVEL 4-6 Last administered on 03/20/18 10:12; Admin Dose 1 TAB; Start 01/25/18 at 15:30 Allopurinol (Zyloprim) 100 mg DAILY PO Last administered on 03/20/18 10:13; Admin Dose 100 MG; Start 01/26/18 at 09:00 Baclofen (Lioresal) 10 mg TID PO Last administered on 03/20/18 10:13; Admin Dose 10 MG; Start 01/25/18 at 21:00 Carvedilol (Coreg) 12.5 mg BID PO Last administered on 03/19/18 20:43; Admin Dose 12.5 MG; Start 01/25/18 at 21:00 Duloxetine HCl (Cymbalta) 30 mg DAILY PO Last administered on 03/20/18 10:12; Admin Dose 30 MG; Start 01/26/18 at 09:00 Famotidine (Pepcid) 20 mg BID PO Last administered on 03/20/18 10:13; Admin Do se 20 MG; Start 01/25/18 at 21:00 Folic Acid (Folic Acid) 1 mg DAILY PO Last administered on 03/20/18 10:12; Admin Dose 1 MG; Start 01/26/18 at 09:00 Gabapentin (Neurontin) 100 mg BID PO Last administered on 03/20/18 10:13; Admin Dose 100 MG; Start 01/25/18 at 21:00 Magnesium Oxide (Mag-Ox 400) 400 mg BID PO Last administered on 03/20/18 10:13; Admin Dose 400 MG; Start 01/25/18 at 21:00 Nystatin 1 applic BID TOP Last administered on 03/20/18 10:16; Admin Dose 1 APPLIC; Start 01/25/18 at 21:00 Pyridoxine HCl (Vitamin B6) 50 mg DAILY PO Last administered on 03/20/18 10:13; Admin Dose 50 MG; Start 01/26/18 at 09:00 Risperidone (Risperdal) 1 mg QHS PO Last administered on 03/19/18 20:42; Admin Dose 1 MG; Start 01/25/18 at 21:00 Zonisamide (Zonegran) 300 mg QHS PO Last administered on 03/19/18 20:42; Admin Dose 300 MG; Start 01/25/18 at 21:00 Eye Lubricant (Artificial Tears Oph) 1 drop Q8 BOTH EYES Last administered on 03/20/18 06:43; Admin Dose 1 DROP; Start 01/25/18 at 22:00 Miscellaneous Information (Pending Santyl Order For Wound Care) This patient woody... PRN PRN XX wound; Start 01/25/18 at 16:30 Vitamin A/Vitamin D (Vitamin A & D Oint) 1 applic BID TOP Last administered on 03/20/18 10:12; Admin Dose 1 APPLIC; Start 01/26/18 at 21:00 Docusate Sodium (Colace) 200 mg BID PO Last administered on 03/20/18 10:13; Admin Dose 200 MG; Start 01/27/18 at 21:00 Enoxaparin Sodium (Lovenox) 40 mg DAILY SC Last administered on 03/20/18 10:19; Admin Dose 40 MG; Start 01/28/18 at 09:00 Sodium Hypochlorite (Dakin'S (Dilute )) 1 applic DAILY IRR Last ad ministered on 03/16/18 08:58; Admin Dose 1 APPLIC; Start 01/27/18 at 18:30 Collagenase (Santyl) 1 applic DAILY TOP Last administered on 03/16/18 08:57; Admin Dose 1 APPLIC; Start 01/27/18 at 17:30 Collagenase (Santyl) 1 applic DAILY TOP Last administered on 03/16/18 08:57; Admin Dose 1 APPLIC; Start 02/04/18 at 09:00 Nitroglycerin (Nitroglycerin (Sl Tab) 0.4 Mg) 1 tab Q5M PRN SL ANGINA; Start 02/05/18 at 07:00 Diphenhydramine HCl (Benadryl) 25 mg Q6H PRN IV itching Last administered on 02/20/18at 09:57; Admin Dose 25 MG; Start 02/19/18 at 14:00 Silver Sulfadiazine (Thermazene 1% 25 Gm) 1 applic DAILY TOP Last administered on 03/17/18 09:18; Admin Dose 1 APPLIC; Start 03/07/18 at 09:00 Zinc Sulfate (Zinc Sulfate) 220 mg DAILY PO Last administered on 03/20/18 10:12; Admin Dose 220 MG; Start 03/12/18 at 14:30 Ascorbic Acid (Vitamin C) 500 mg DAILY PO Last administered on 03/20/18at 10:13; Admin Dose 500 MG; Start 03/12/18 at 14:30 Multivitamins Therapeutic (Theragran) 1 tab DAILY PO Last administered on 03/20/18at 10:13; Admin Dose 1 TAB; Start 03/12/18 at 14:30 Magnesium Hydroxide (Milk Of Mag) 30 ml DAILY PRN PO CONSTIPATION; Start 03/13/18 at 13:00 DINA VICTOR NP Mar 20, 2018 14:58
--- NOTE | 2018-03-20 16:14 | NUR ---
PT NOTES: [facility] Patient: Papo Wynne : 1960 Age/Sex: 57/M Unit#: [id number] Room/Bed: 2263/A User: Trey Cheek PTA Date: 03/20/18 15:00 Type: PT Technical Record Therapy day number 19 Subjective Denies pain Pain Scale NUMERIC Pain Intensity 0 (0-10) Patient Stated Goal for Pain Relief 0 (0-10) Pain Level Comment NON NOTED Exercise Assessment Label Bilat Lower Extremity Exercise Type Passive ROM Exercise Start Time 14:20 Exercise End Time 14:45 Total Exercise Time 25 min (8-127) Transfer Training Start Time 14:45 Supine to Sit Maximum Assist Bed Mobility Sit to Supine Maximum Assist Sitting Tolerance 5 min Transfer Training End Time 15:00 Total Transfer Training Time 15 min (8-127) Static Sitting Balance Fair Dynamic Sitting Balance Fair minus Safety Judgement Good Activity Tolerance Fair Equipment Present Drains Benavidez Catheter Additional Equipment Present 2 wound vac Post Treatment Pain Intensity 0 0-10 Total Treament Time 40 min (8-127) Total Minutes 40 Total Units 3 PT Technical Record Comment PT NOTES: SAME TREATMENT PLAN GIVEN; SITTED APPROX 5 MIN AT EDGE OF BED TODAY; SAFELY BACK TO BED AFTER TREATMENT; NEEDS MAX ASSIST WITH ALL ACTIVITIES TODAY; EASILY FATIGUES; NEEDS LONG REST PERIOD BETWEEN ACTIVITIES; WILL CONTINUE CURRENT PLAN OF CARE.
[2018-03-20 20:38] VITALS: BP 110/64; PULSE 102; RESP 18
[2018-03-20] MEDS: ZONISAMIDE 100 MG CAP PO SCH (21:15)
[2018-03-20] MEDS: RISPERIDONE 1 MG TAB PO SCH (21:16)
[2018-03-21] MEDS: HYDROCODONE/APAP (5/325) TAB PO PRN ×3 (00:39→21:26)
[2018-03-21 03:13] VITALS: BP 98/57; PULSE 89; RESP 20
[2018-03-21] MEDS: ARTIFICIAL TEARS 15 ML OPH BOTH EYES SCH ×3 (05:36→22:45)
[2018-03-21 08:47] VITALS: BP 98/62; PULSE 77; RESP 18
[2018-03-21] MEDS: COLLAGENASE 5 GM (UD JAR) TOP SCH ×2 (09:00)
[2018-03-21] MEDS: DOCUSATE SODIUM 100 MG CAP PO SCH ×2 (09:00→21:26)
[2018-03-21] MEDS: SODIUM HYPOCHLORITE (1/40) 1 APPLIC BTL IRR SCH (09:00)
[2018-03-21] MEDS: ZINC SULFATE 220 MG CAP PO SCH (09:04)
[2018-03-21] MEDS: FOLIC ACID 1 MG TAB PO SCH (09:04)
[2018-03-21] MEDS: VITAMIN A & D 5 GM OINT PACKET TOP SCH ×2 (09:04→21:30)
[2018-03-21] MEDS: MULTIVITAMINS THERAPEUTIC TAB PO SCH (09:04)
[2018-03-21] MEDS: FAMOTIDINE 20 MG TAB PO SCH ×2 (09:04→21:27)
[2018-03-21] MEDS: DULOXETINE 30 MG CAP DR PO SCH (09:04)
[2018-03-21] MEDS: ASCORBIC ACID 500 MG TAB PO SCH (09:04)
[2018-03-21] MEDS: GABAPENTIN 100 MG CAP PO SCH ×2 (09:05→21:26)
[2018-03-21] MEDS: MAGNESIUM OXIDE 400 MG TAB PO SCH ×2 (09:05→21:27)
[2018-03-21] MEDS: BACLOFEN 10 MG TAB PO SCH ×3 (09:05→21:27)
[2018-03-21] MEDS: PYRIDOXINE 50 MG TAB PO SCH (09:05)
[2018-03-21] MEDS: ALLOPURINOL 100 MG TAB PO SCH (09:05)
[2018-03-21] MEDS: ENOXAPARIN 40 MG/0.4 ML SYG SC SCH (09:07)
[2018-03-21] MEDS: NYSTATIN 15 GM POWDER BTL TOP SCH ×2 (09:17→21:30)
[2018-03-21] MEDS: SILVER SULFADIAZINE 1% 25 GM CR TOP SCH (09:18)
[2018-03-21] MEDS: BALSAM PERU/CASTOR OIL 60 GM TUBE TOP SCH (09:18)
--- NOTE | 2018-03-21 12:08 | PN ---
Date/Time of Note Date/Time of Note DATE: 03/21/18 TIME: 12:08 Objective Vitals Vital Signs Date Temp Pulse Resp B/P (MAP) Pulse Ox O2 O2 Flow FiO2 Time Delivery Rate 03/21/18 98.0 77 18 98/62 (74) 98 Room Air 08:47 Intake and Output 03/20/18 03/20/18 03/21/18 1515:00 23:00 07:00 IntakeIntake Total 620 ml 600 ml 500 ml OutputOutput Total 1000 ml 1200 ml BalanceBalance 620 ml -400 ml -700 ml Results Result Diagram: 03/19/1860203/19/18602 Medications Medications Current Medications IV Flush (NS 3 ml) 3 ml PER PROTOCOL IV ; Start 01/25/18 at 15:30 Ondansetron HCl (Zofran Inj) 4 mg Q6H PRN IV NAUSEA AND/OR VOMITING; Start 01/25/18 at 15:30 Acetaminophen (Tylenol Tab) 650 mg Q6H PRN PO PAIN LEVEL 1-3 OR FEVER Last administered on 03/18/18 20:36; Admin Dose 650 MG; Start 01/25/18 at 15:30 Acetaminophen/ Hydrocodone Bitart ([place] (5/325)) 1 tab Q6H PRN PO MODERATE PAIN LEVEL 4-6 Last administered on 03/21/18 00:39; Admin Dose 1 TAB; Start 01/25/18 at 15:30 Allopurinol (Zyloprim) 100 mg DAILY PO Last administered on 03/21/18 09:05; Admin Dose 100 MG; Start 01/26/18 at 09:00 Baclofen (Lioresal) 10 mg TID PO Last administered on 03/21/18 09:05; Admin Dose 10 MG; Start 01/25/18 at 21:00 Carvedilol (Coreg) 12.5 mg BID PO Last administered on 03/20/18 21:16; Admin Dose 12.5 MG; Start 01/25/18 at 21:00 Duloxetine HCl (Cymbalta) 30 mg DAILY PO Last administered on 03/21/18 09:04; Admin Dose 30 MG; Start 01/26/18 at 09:00 Famotidine (Pepcid) 20 mg BID PO Last administered on 03/21/18 09:04; Admin Dose 20 MG; Start 01/25/18 at 21:00 Folic Acid (Folic Acid) 1 mg DAILY PO Last administered on 03/21/18 09:04; Admin Dose 1 MG; Start 01/26/18 at 09:00 Gabapentin (Neurontin) 100 mg BID PO Last administered on 03/21/18 09:05; Admin Dose 100 MG; Start 01/25/18 at 21:00 Magnesium Oxide (Mag-Ox 400) 400 mg BID PO Last administered on 03/21/18 09:05; Admin Dose 400 MG; Start 01/25/18 at 21:00 Nystatin 1 applic BID TOP Last administered on 03/21/18 09:17; Admin Dose 1 APPLIC; Start 01/25/18 at 21:00 Pyridoxine HCl (Vitamin B6) 50 mg DAILY PO Last administered on 03/21/18 09:05; Admin Dose 50 MG; Start 01/26/18 at 09:00 Risperidone (Risperdal) 1 mg QHS PO Last administered on 03/20/18 21:16; Admin Dose 1 MG; Start 01/25/18 at 21:00 Zonisamide (Zonegran) 300 mg QHS PO Last administered on 03/20/18 21:15; Admin Dose 300 MG; Start 01/25/18 at 21:00 Eye Lubricant (Artificial Tears Oph) 1 drop Q8 BOTH EYES Last administered on 03/21/18 05:36; Admin Dose 1 DROP; Start 01/25/18 at 22:00 Miscellaneous Information (Pending [facility] Order For Wound Care) This patient woody... PRN PRN XX wound; Start 01/25/18 at 16:30 Vitamin A/Vitamin D (Vitamin A & D Oint) 1 applic BID TOP Last administered on 03/21/18 09:04; Admin Dose 1 APPLIC; Start 01/26/18 at 21:00 Docusate Sodium (Colace) 200 mg BID PO Last administered on 03/20/18 21:16; Admin Dose 200 MG; Start 01/27/18 at 21:00 Enoxaparin Sodium (Lovenox) 40 mg DAILY SC Last administered on 03/21/18 09:07; Admin Dose 40 MG; Start 01/28/18 at 09:00 Sodium Hypochlorite (Dakin'S (Dilute 1/40)) 1 applic DAILY IRR Last administered on 03/16/18 08:58; Admin Dose 1 APPLIC; Start 01/27/18 at 18:30 Collagenase (Santyl) 1 applic DAILY TOP Last administered on 03/16/18 08:57; Admin Dose 1 APPLIC; Start 01/27/18 at 17:30 Collagenase (Santyl) 1 applic DAILY TOP Last administered on 03/16/18 08:57; Admin Dose 1 APPLIC; Start 02/04/18 at 09:00 Nitroglycerin (Nitroglycerin (Sl Tab) 0.4 Mg) 1 tab Q5M PRN SL ANGINA; Start 02/05/18 at 07:00 Diphenhydramine HCl (Benadryl) 25 mg Q6H PRN IV itching Last administered on 02/20/18at 09:57; Admin Dose 25 MG; Start 02/19/18 at 14:00 Silver Sulfadiazine (Thermazene 1% 25 Gm) 1 applic DAILY TOP Last administered on 03/21/18 09:18; Admin Dose 1 APPLIC; Start 03/07/18 at 09:00 Zinc Sulfate (Zinc Sulfate) 220 mg DAILY PO Last administered on 03/21/18 09:04; Admin Dose 220 MG; Start 03/12/18 at 14:30 Ascorbic Acid (Vitamin C) 500 mg DAILY PO Last administered on 03/21/18 09:04; Admin Dose 500 MG; Start 03/12/18 at 14:30 Multivitamins Therapeutic (Theragran) 1 tab DAILY PO Last administered on 03/21/18 09:04; Admin Dose 1 TAB; Start 03/12/18 at 14:30 Magnesium Hydroxide (Milk Of Mag) 30 ml DAILY PRN PO CONSTIPATION; Start 03/13/18 at 13:00 VTE Prophylaxis Risk score (from Nsg)>0 risk: 6 SCD applied (from Nsg): No SCD contraindication: other Lines/Catheters IV Catheter Type: Benavidez in Place: No Assessment/Plan Hospital Course Subjective No acute changes overnight Objective Physical exam General: Patient is laying in bed and answers questions appropriately, does not have feeling below the shoulders Mentation: Patient is alert and oriented 4, Head: Normocephalic atraumatic Eyes: EOMI, pupils reactive to light Neck: Supple, nontender, midline Respiratory: Clear to auscultation bilaterally Cardiovascular: regular rate, no obvious murmurs Gastrointestinal: non-tender to palpation, bowel sounds heard. 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 1. Bilateral heel Decub ulcers without evidence of OM -s/p excisional debridement of bilateral heel decubitus wounds 01/26=>.Wound cultures: Enterobacter cloacae -Left heel resolved -ulcers progressed on Rt heel => Repeat Bedside debridement and application of wound vac 03/04/18 -Antibiotic management per ID=>on orals for now -Wound care 2. Paraplegia secondary to spinal disorder and back surgery 6 months ago -Exact nature of disorder and surgery unclear -Continue baclofen 3. Depression -Continue home Cymbalta 4. Hypertension -Continue Coreg 5. Debility secondary to #2. -Patient resides in a long-term. 6. Chronic anemia with mild iron deficiency. -s/p tx 02/03=>stable H&H -Continue oral iron replacement. 7. Unstageable pressure ulcers, sacral coccyx -S/p bedside debridement 02/13/18=> deteriorates further secondary to immobilization/noncompliance with nursing turning protocol. -Repeat debridement 03/10/2018 w/ application of wound VAC -WC: VANCO RESISTANT enterococcus 3+, coag negative staph 1+, alpha hemolytic strep 1+. -On appropriate antimicrobials -Continue wound care -Add vitamin C/zinc/Theragen. Continue protein supplements. -Dietary Consult 8. Constipation -Continue stool softeners. PRN laxative Prophylaxis:Lovenox/Pepcid Diet: Regular CODE STATUS: Full code Disposition: Wound care/antibiotics. Pending long-term placement MARC CHAN Mar 21, 2018 12:08
[2018-03-21 14:00] VITALS: BP 101/69; PULSE 89; RESP 18
--- NOTE | 2018-03-21 18:30 | NUR ---
RN NOTES No significant change. No new skin issues identified. Reposition every 2 hours and as needed. Pain medication given as ordered. Kept safe and comfortable. Needs attended. Seen by Dr Medley with no new orders noted. Will continue to monitor.
[2018-03-21 19:45] VITALS: BP 112/64; PULSE 84; RESP 17
[2018-03-21] MEDS: RISPERIDONE 1 MG TAB PO SCH (21:26)
[2018-03-21] MEDS: ZONISAMIDE 100 MG CAP PO SCH (21:26)
[2018-03-22 02:17] VITALS: BP 90/55; RESP 17
[2018-03-22] MEDS: ARTIFICIAL TEARS 15 ML OPH BOTH EYES SCH ×3 (06:00→20:30)
[2018-03-22 08:30] VITALS: BP 97/59; PULSE 84; RESP 18
[2018-03-22] MEDS: VITAMIN A & D 5 GM OINT PACKET TOP SCH ×2 (09:00→20:30)
[2018-03-22] MEDS: SODIUM HYPOCHLORITE (1/40) 1 APPLIC BTL IRR SCH (09:00)
[2018-03-22] MEDS: NYSTATIN 15 GM POWDER BTL TOP SCH ×2 (09:00→22:51)
[2018-03-22] MEDS: SILVER SULFADIAZINE 1% 25 GM CR TOP SCH (09:00)
[2018-03-22] MEDS: COLLAGENASE 5 GM (UD JAR) TOP SCH ×2 (09:00)
[2018-03-22] MEDS: BALSAM PERU/CASTOR OIL 60 GM TUBE TOP SCH (09:00)
[2018-03-22] MEDS: ENOXAPARIN 40 MG/0.4 ML SYG SC SCH (09:11)
[2018-03-22] MEDS: ALLOPURINOL 100 MG TAB PO SCH (09:12)
[2018-03-22] MEDS: DOCUSATE SODIUM 100 MG CAP PO SCH ×2 (09:12→20:30)
[2018-03-22] MEDS: DULOXETINE 30 MG CAP DR PO SCH (09:12)
[2018-03-22] MEDS: PYRIDOXINE 50 MG TAB PO SCH (09:12)
[2018-03-22] MEDS: BACLOFEN 10 MG TAB PO SCH ×3 (09:12→20:31)
[2018-03-22] MEDS: MAGNESIUM OXIDE 400 MG TAB PO SCH ×2 (09:13→20:31)
[2018-03-22] MEDS: FOLIC ACID 1 MG TAB PO SCH (09:13)
[2018-03-22] MEDS: MULTIVITAMINS THERAPEUTIC TAB PO SCH (09:13)
[2018-03-22] MEDS: ZINC SULFATE 220 MG CAP PO SCH (09:13)
[2018-03-22] MEDS: FAMOTIDINE 20 MG TAB PO SCH ×2 (09:13→20:31)
[2018-03-22] MEDS: GABAPENTIN 100 MG CAP PO SCH ×2 (09:13→20:31)
[2018-03-22] MEDS: ASCORBIC ACID 500 MG TAB PO SCH (09:13)
[2018-03-22] MEDS: HYDROCODONE/APAP (5/325) TAB PO PRN ×2 (09:21→19:18)
[2018-03-22 14:36] VITALS: BP 102/60; PULSE 86; RESP 18
--- NOTE | 2018-03-22 16:16 | PN ---
Date/Time of Note Date/Time of Note DATE: 03/22/18 TIME: 16:16 Assessment/Plan VTE Prophylaxis Risk score (from Nsg)>0 risk: 5 SCD applied (from Nsg): Yes Pharmacological prophylaxis: heparin Lines/Catheters IV Catheter Type (from Nrsg): Saline Lock Urinary Cath still in place: Yes Reason Cath still needed: urinary retention Assessment/Plan Hospital Course No acute changes overnight Objective Physical exam General: Patient is laying in bed and answers questions appropriately, does not have feeling below the shoulders Mentation: Patient is alert and oriented 4, Head: Normocephalic atraumatic Eyes: EOMI, pupils reactive to light Neck: Supple, nontender, midline Respiratory: Clear to auscultation bilaterally Cardiovascular: regular rate, no obvious murmurs Gastrointestinal: non-tender to palpation, bowel sounds heard. Neurological: Moves upper extremities appropriately, no feeling or movement in the lower extremities Skin: No new skin lesions ASSESSMENT/PLAN: Very unfortunate 57-year-old male with a history of paraplegia secondary to spinal cord syndrome 6 months ago, who also resides in a chcf, presented to the emergency room with worsening bilateral heel ulcers with foul-smelling drainage.... 1. Bilateral heel Decub ulcers without evidence of OM -s/p excisional debridement of bilateral heel decubitus wounds 01/26=>.Wound cultures: Enterobacter cloacae -Left heel resolved -ulcers progressed on Rt heel => Repeat Bedside debridement and application of wound vac 03/04/18 -Antibiotic management per ID=>on orals for now -Wound care 2. Paraplegia secondary to spinal disorder and back surgery 6 months ago -Exact nature of disorder and surgery unclear -Continue baclofen 3. Depression -Continue home Cymbalta 4. Hypertension -Continue Coreg 5. Debility secondary to #2. -Patient resides in a chcf. 6. Chronic anemia with mild iron deficiency. -s/p tx 02/03=>stable H&H -Continue oral iron replacement. 7. Unstageable pressure ulcers, sacral coccyx -S/p bedside debridement 02/13/18=> deteriorates further secondary to immobilization/noncompliance with nursing turning protocol. -Repeat debridement 03/10/2018 w/ application of wound VAC -WC: VANCO RESISTANT enterococcus 3+, coag negative staph 1+, alpha hemolytic strep 1+. -On appropriate antimicrobials -Continue wound care -Add vitamin C/zinc/Theragen. Continue protein supplements. -Dietary Consult 8. Constipation -Continue stool softeners. PRN laxative Prophylaxis:Lovenox/Pepcid Diet: Regular CODE STATUS: Full code Disposition: Wound care/antibiotics. Pending [facility] placement Result Diagram: 03/19/18 0603/19/18 06 Exam/Review of Systems Vital Signs Vitals Vital Signs Date Temp Pulse Resp B/P (MAP) Pulse Ox O2 O2 Flow FiO2 Time Delivery Rate 03/22/18 98.0 86 18 102/60 98 Room Air 14:36 (74) Intake and Output 03/21/18 03/21/18 03/22/18 1414:59 22:59 06:59 IntakeIntake Total 740 ml 600 ml OutputOutput Total 900 ml 975 ml BalanceBalance 740 ml -300 ml -975 ml Medications Medications Current Medications IV Flush (NS 3 ml) 3 ml PER PROTOCOL IV ; Start 01/25/18 at 15:30 Ondansetron HCl (Zofran Inj) 4 mg Q6H PRN IV NAUSEA AND/OR VOMITING; Start 01/25/18 at 15:30 Acetaminophen (Tylenol Tab) 650 mg Q6H PRN PO PAIN LEVEL 1-3 OR FEVER Last administered on 03/18/18 20:36; Admin Dose 650 MG; Start 01/25/18 at 15:30 Acetaminophen/ Hydrocodone Bitart ([place] (5/325)) 1 tab Q6H PRN PO MODERATE PAIN LEVEL 4-6 Last administered on 03/22/18 09:21; Admin Dose 1 TAB; Start 01/25/18 at 15:30 Allopurinol (Zyloprim) 100 mg DAILY PO Last administered on 03/22/18 09:12; Admin Dose 100 MG; Start 01/26/18 at 09:00 Baclofen (Lioresal) 10 mg TID PO Last administered on 03/22/18 12:59; Admin Dose 10 MG; Start 01/25/18 at 21:00 Carvedilol (Coreg) 12.5 mg BID PO Last administered on 03/21/18 21:27; Admin Dose 12.5 MG; Start 01/25/18 at 21:00 Duloxetine HCl (Cymbalta) 30 mg DAILY PO Last administered on 03/22/18 09:12; Admin Dose 30 MG; Start 01/26/18 at 09:00 Famotidine (Pepcid) 20 mg BID PO Last administered on 03/22/18 09:13; Admin Dose 20 MG; Start 01/25/18 at 21:00 Folic Acid (Folic Acid) 1 mg DAILY PO Last administered on 03/22/18 09:13; Admin Dose 1 MG; Start 01/26/18 at 09:00 Gabapentin (Neurontin) 100 mg BID PO Last administered on 03/22/18 09:13; Admin Dose 100 MG; Start 01/25/18 at 21:00 Magnesium Oxide (Mag-Ox 400) 400 mg BID PO Last administered on 03/22/18 09:13; Admin Dose 400 MG; Start 01/25/18 at 21:00 Nystatin 1 applic BID TOP Last administered on 03/22/18 09:00; Admin Dose 1 APPLIC; Start 01/25/18 at 21:00 Pyridoxine HCl (Vitamin B6) 50 mg DAILY PO Last administered on 03/22/18 09:12; Admin Dose 50 MG; Start 01/26/18 at 09:00 Risperidone (Risperdal) 1 mg QHS PO Last administered on 03/21/18 21:26; Admin Dose 1 MG; Start 01/25/18 at 21:00 Zonisamide (Zonegran) 300 mg QHS PO Last administered on 03/21/18 21:26; Admin Dose 300 MG; Start 01/25/18 at 21:00 Eye Lubricant (Artificial Tears Oph) 1 drop Q8 BOTH EYES Last administered on 03/22/18 14:08; Admin Dose 1 DROP; Start 01/25/18 at 22:00 Miscellaneous Information (Pending Santyl Order For Wound Care) This patient woody... PRN PRN XX wound; Start 01/25/18 at 16:30 Vitamin A/Vitamin D (Vitamin A & D Oint) 1 applic BID TOP Last administered on 03/22/18 09:00; Admin Dose 1 APPLIC; Start 01/26/18 at 21:00 Docusate Sodium (Colace) 200 mg BID PO Last administered on 03/22/18 09:12; Admin Dose 200 MG; Start 11/27/18 at 21:00 Enoxaparin Sodium (Lovenox) 40 mg DAILY SC Last administered on 03/22/18 09:11; Admin Dose 40 MG; Start 01/28/18 at 09:00 Sodium Hypochlorite (Dakin'S (Dilute )) 1 applic DAILY IRR Last administered on 03/16/18 08:58; Admin Dose 1 APPLIC; Start 01/27/18 at 18:30 Collagenase (Santyl) 1 applic DAILY TOP Last administered on 03/22/18 09:00; Admin Dose 1 APPLIC; Start 01/27/18 at 17:30 Collagenase (Santyl) 1 applic DAILY TOP Last administered on 03/22/18 09:00; Admin Dose 1 APPLIC; Start 02/04/18 at 09:00 Nitroglycerin (Nitroglycerin (Sl Tab) 0.4 Mg) 1 tab Q5M PRN SL ANGINA; Start 02/05/18 at 07:00 Diphenhydramine HCl (Benadryl) 25 mg Q6H PRN IV itching Last administered on 02/20/18at 09:57; Admin Dose 25 MG; Start 02/19/18 at 14:00 Silver Sulfadiazine (Thermazene 1% 25 Gm) 1 applic DAILY TOP Last administered on 03/22/18 09:00; Admin Dose 1 APPLIC; Start 03/07/18 at 09:00 Zinc Sulfate (Zinc Sulfate) 220 mg DAILY PO Last administered on 03/22/18 09:13; Admin Dose 220 MG; Start 03/12/18 at 14:30 Ascorbic Acid (Vitamin C) 500 mg DAILY PO Last administered on 03/22/18 09:13; Admin Dose 500 MG; Start 03/12/18 at 14:30 Multivitamins Therapeutic (Theragran) 1 tab DAILY PO Last administered on 03/22/18 09:13; Admin Dose 1 TAB; Start 03/12/18 at 14:30 Magnesium Hydroxide (Milk Of Mag) 30 ml DAILY PRN PO CONSTIPATION; Start 03/13/18 at 13:00 ANGELI MESA MD Mar 22, 2018 16:16
--- NOTE | 2018-03-22 18:36 | NUR ---
Pt with stable vitals throughout shift. Tolerating current treatment regimen. Wounds care completed with photos taken. Pt turned and repositioned at a minimum of every 2 hours. Still pending placement. Will continue to monitor and endorse to next shift.
[2018-03-22 20:00] VITALS: BP 101/63; PULSE 90; RESP 18
[2018-03-22] MEDS: ZONISAMIDE 100 MG CAP PO SCH (20:30)
[2018-03-22] MEDS: RISPERIDONE 1 MG TAB PO SCH (20:31)
[2018-03-23] MEDS: HYDROCODONE/APAP (5/325) TAB PO PRN ×3 (01:45→17:40)
[2018-03-23 02:15] VITALS: BP 91/58; PULSE 112; RESP 18
[2018-03-23] MEDS: ARTIFICIAL TEARS 15 ML OPH BOTH EYES SCH ×3 (05:34→21:36)
--- NOTE | 2018-03-23 06:47 | NUR ---
Shift summary: Patient is alert and oriented, wound care done. Patient was turned Q2H. He had a low grade fever around 0200. he also complained of back. Pillager was administered which afforded relief. Repeat temperature check was 99F. All due medications administered, POC explained, continue to monitor.
[2018-03-23 08:00] VITALS: BP 111/67; PULSE 73; RESP 18
[2018-03-23] MEDS: COLLAGENASE 5 GM (UD JAR) TOP SCH ×2 (08:16→08:17)
[2018-03-23] MEDS: ENOXAPARIN 40 MG/0.4 ML SYG SC SCH (08:16)
[2018-03-23] MEDS: ZINC SULFATE 220 MG CAP PO SCH (08:17)
[2018-03-23] MEDS: DULOXETINE 30 MG CAP DR PO SCH (08:17)
[2018-03-23] MEDS: MULTIVITAMINS THERAPEUTIC TAB PO SCH (08:17)
[2018-03-23] MEDS: PYRIDOXINE 50 MG TAB PO SCH (08:17)
[2018-03-23] MEDS: VITAMIN A & D 5 GM OINT PACKET TOP SCH ×2 (08:17→21:03)
[2018-03-23] MEDS: FAMOTIDINE 20 MG TAB PO SCH ×2 (08:17→21:02)
[2018-03-23] MEDS: FOLIC ACID 1 MG TAB PO SCH (08:17)
[2018-03-23] MEDS: MAGNESIUM OXIDE 400 MG TAB PO SCH ×2 (08:17→21:02)
[2018-03-23] MEDS: ALLOPURINOL 100 MG TAB PO SCH (08:17)
[2018-03-23] MEDS: ASCORBIC ACID 500 MG TAB PO SCH (08:17)
[2018-03-23] MEDS: BACLOFEN 10 MG TAB PO SCH ×3 (08:17→21:02)
[2018-03-23] MEDS: GABAPENTIN 100 MG CAP PO SCH ×2 (08:18→21:02)
[2018-03-23] MEDS: DOCUSATE SODIUM 100 MG CAP PO SCH ×2 (08:20→21:00)
[2018-03-23] MEDS: NYSTATIN 15 GM POWDER BTL TOP SCH ×2 (08:24→21:03)
[2018-03-23] MEDS: BALSAM PERU/CASTOR OIL 60 GM TUBE TOP SCH (08:25)
[2018-03-23] MEDS: SILVER SULFADIAZINE 1% 25 GM CR TOP SCH (08:25)
--- NOTE | 2018-03-23 09:00 | NUR ---
PT note Therapy day number 20 Subjective Denies pain Pain Scale NUMERIC Pain Intensity 0 (0-10) Patient Stated Goal for Pain Relief 0 (0-10) Pain Level Comment denies pain Exercise Assessment Label Bilat Lower Extremity Exercise Type Passive ROM Exercise Assessment Label Bilat Upper Extremity Exercise Type Active ROM Additional Exercise Comments Active shoulder retraction, AROM UE including IR and ER, pulls with sheet Exercise Start Time 09:00 Exercise End Time 09:45 Total Exercise Time 45 min (8-127) Safety Judgement Good Activity Tolerance Fair Equipment Present Drains Benavidez Catheter IV pump Additional Equipment Present 2 wound vac Post Treatment Pain Intensity 0 0-10 Total Treament Time 45 min (8-127) Total Minutes 45 Total Units 3 PT Technical Record Comment S: patient in bed, agreeable to PT intervention, pt cleared for activity per RN O: PT intervention completed, pt returned back to bed following therapy intervention with call light within reach and bed alarm activated. Performed bed ther-ex throughout including manual stretching, joint mobilization with movement of B shoulders to improve external rotation. Patient educated on use of sheet to use UE to pull self up for repositioning and improving forward posture with pec stretch and shoulder retraction. Expressed to RN regarding pt progress and potential for OHFT. No reports of pain, dizziness, or shortness of breath with activity. A: Patient presents with limited shoulder external rotation which limits shoulder elevation. Patient receptive to improving forward posture and understanding of use of sheet to pull for repositioning. patient could benefit from use OHFT to improve mobility. to continue to encourage OOB mobility. P: Progress as tolerated
[2018-03-23] MEDS: SODIUM HYPOCHLORITE (1/40) 1 APPLIC BTL IRR SCH (10:05)
--- NOTE | 2018-03-23 10:46 | PN ---
Date/Time of Note Date/Time of Note DATE: 03/23/18 TIME: 10:42 Assessment/Plan Lines/Catheters IV Catheter Type (from Nrs): Saline Lock Benavidez in Place (from Nrs): Yes Assessment/Plan Chief Complaint/Hosp Course 1. Stage 4 necrotic wound: s/p repeat excisional debridement 03/18/18, bone sample sent for path; status post I&D&D of right thigh blister; bone path noted: gangrenous necrosis -cont local care> Santyl to sacrum > consider follow ups at wound care clinic near where he will be discharged> wound VAC to sacrum-nursing to track tube in order to prevent equipment related skin damage -Continue Silver ointment to right thigh blister (S/P I&D) -frequent turning and [id number] with patient importance of frequent turning however per nursing patient always returns to his back after being repositioned-once again reinforced importance of offloading -low air loss mattress -vitamin c -short term zinc -optimize nutrition -skin protection against devices -further debridement prn 2. Bilateral lower extremity ulcers: with wound vac -As above -Per podiatry 3. Hypochromic microcytic anemia: -Monitor and transfuse as needed 4. Depression: -Psychiatric optimization 5. Paraplegia -Supportive 6. Hypertension -nutrition and medication optimization Thank you. Subjective 24 Hr Interval Summary s/p Debridement 03/18. Episode of fever and tachycardia at 2am. Feels well. No current fevers, chills, sob, congested cough, cp, palpitations, woody, dizziness, n/v/d/dysuria. No pain. No visual or neuro changes. Exam/Review of Systems Vital Signs Vitals Vital Signs Date Temp Pulse Resp B/P (MAP) Pulse Ox O2 O2 Flow FiO2 Time Delivery Rate 03/23/18 98.0 73 18 111/67 97 Room Air 08:00 (82) Intake and Output 03/22/18 03/22/18 03/23/18 1414:59 22:59 06:59 IntakeIntake Total 1400 ml 240 ml 350 ml OutputOutput Total 375 ml 1200 ml BalanceBalance 1400 ml -135 ml -850 ml Exam Free Text/Dictation Constitutional: alert, oriented Psych: nl mood/affect, anxiety (Minimal) Head: normocephalic, atraumatic Eyes: nl conjunctiva, EOMI, nl sclera ENMT: nl external ears & nose, nl lips & teeth, mucosa pink and moist Neck: supple, non-tender Respiratory: normal air movement; No congested cough Cardiovascular: regular rate and rhythm; No edema Gastrointestinal: soft, non-tender; No distended Musculoskeletal: nl extremities to inspection; No nl gait and stance Extremities: normal pulses; No edema Neurological: nl mental status, nl speech Skin: nl turgor, Sacral wound: no periwound erythema, minimal drainage ( serosanguineous), wound vac; wound vac to lower leg; right thigh skin blister (improving-healing) Results Result Diagram: 03/19/1860203/19/1803 DOC HOFFMAN MD Mar 23, 2018 10:46
--- NOTE | 2018-03-23 13:49 | NUR ---
DC PLANS: SPOKE TO LIZA @ [facility], NO ROXANE YET FROM [facility]. CALLED CHARLES PENA OF [employer] [facility], LIZA FROM [facility] SHOULD BE THE ONE TO CALL HER FOR THE ROXANE. NOTIFIED LIZA AND PROVIDED HER TEL # OF CHARLES. AWAITS CALL BACK FROM LIZA RE ROXANE TO TRANSFER PATIENT. Addendum: 03/23/18 at 1351 by GENOVEVA GONSALES CM Amended: Links added.
--- NOTE | 2018-03-23 13:56 | PN ---
Date/Time of Note Date/Time of Note DATE: 03/23/18 TIME: 13:55 Assessment/Plan VTE Prophylaxis Risk score (from Nsg)>0 risk: 5 SCD applied (from Nsg): Yes Pharmacological prophylaxis: heparin Lines/Catheters IV Catheter Type (from Nrsg): Saline Lock Urinary Cath still in place: Yes Reason Cath still needed: urinary retention Assessment/Plan Hospital Course General: Patient is laying in bed and answers questions appropriately, does not have feeling below the shoulders Mentation: Patient is alert and oriented 4, Head: Normocephalic atraumatic Eyes: EOMI, pupils reactive to light Neck: Supple, nontender, midline Respiratory: Clear to auscultation bilaterally Cardiovascular: regular rate, no obvious murmurs Gastrointestinal: non-tender to palpation, bowel sounds heard. 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 1. Bilateral heel Decub ulcers without evidence of OM -s/p excisional debridement of bilateral heel decubitus wounds 01/26=>.Wound cultures: Enterobacter cloacae -Left heel resolved -ulcers progressed on Rt heel => Repeat Bedside debridement and application of wound vac 03/04/18 -Antibiotic management per ID=>on orals for now -Wound care 2. Paraplegia secondary to spinal disorder and back surgery 6 months ago -Exact nature of disorder and surgery unclear -Continue baclofen 3. Depression -Continue home Cymbalta 4. Hypertension -Continue Coreg 5. Debility secondary to #2. -Patient resides in a alf. 6. Chronic anemia with mild iron deficiency. -s/p tx 02/03=>stable H&H -Continue oral iron replacement. 7. Unstageable pressure ulcers, sacral coccyx -S/p bedside debridement 02/13/18=> deteriorates further secondary to immobilization/noncompliance with nursing turning protocol. -Repeat debridement 03/10/2018 w/ application of wound VAC -WC: VANCO RESISTANT enterococcus 3+, coag negative staph 1+, alpha hemolytic strep 1+. -On appropriate antimicrobials -Continue wound care -Add vitamin C/zinc/Theragen. Continue protein supplements. -Dietary Consult 8. Constipation -Continue stool softeners. PRN laxative Prophylaxis:Lovenox/Pepcid Diet: Regular CODE STATUS: Full code Disposition: Wound care/antibiotics. Pending alf placement Result Diagram: 03/19/18 0603/19/18 06 Subjective 24 Hr Interval Summary Free Text/Dictation No change to clinical status Awaiting placement Exam/Review of Systems Vital Signs Vitals Vital Signs Date Temp Pulse Resp B/P (MAP) Pulse Ox O2 O2 Flow FiO2 Time Delivery Rate 03/23/18 98.0 73 18 111/67 97 Room Air 08:00 (82) Intake and Output 03/22/18 03/22/18 03/23/18 1515:00 23:00 07:00 IntakeIntake Total 1400 ml 240 ml 350 ml OutputOutput Total 375 ml 1200 ml BalanceBalance 1400 ml -135 ml -850 ml Medications Medications Current Medications IV Flush (NS 3 ml) 3 ml PER PROTOCOL IV ; Start 01/25/18 at 15:30 Ondansetron HCl (Zofran Inj) 4 mg Q6H PRN IV NAUSEA AND/OR VOMITING; Start 01/25/18 at 15:30 Acetaminophen (Tylenol Tab) 650 mg Q6H PRN PO PAIN LEVEL 1-3 OR FEVER Last administered on 03/18/18 20:36; Admin Dose 650 MG; Start 01/25/18 at 15:30 Acetaminophen/ Hydrocodone Bitart ([place] (5/325)) 1 tab Q6H PRN PO MODERATE PAIN LEVEL 4-6 Last administered on 03/23/18 10:10; Admin Dose 1 TAB; Start 01/25/18 at 15:30 Allopurinol (Zyloprim) 100 mg DAILY PO Last administered on 03/23/18 08:17; A dmin Dose 100 MG; Start 01/26/18 at 09:00 Baclofen (Lioresal) 10 mg TID PO Last administered on 03/23/18 13:26; Admin Dose 10 MG; Start 01/25/18 at 21:00 Carvedilol (Coreg) 12.5 mg BID PO Last administered on 03/23/18 08:24; Admin Dose 12.5 MG; Start 01/25/18 at 21:00 Duloxetine HCl (Cymbalta) 30 mg DAILY PO Last administered on 03/23/18 08:17; Admin Dose 30 MG; Start 01/26/18 at 09:00 Famotidine (Pepcid) 20 mg BID PO Last administered on 03/23/18 08:17; Admin Dose 20 MG; Start 01/25/18 at 21:00 Folic Acid (Folic Acid) 1 mg DAILY PO Last administered on 03/23/18 08:17; Admin Dose 1 MG; Start 01/26/18 at 09:00 Gabapentin (Neurontin) 100 mg BID PO Last administered on 03/23/18 08:18; Admin Dose 100 MG; Start 01/25/18 at 21:00 Magnesium Oxide (Mag-Ox 400) 400 mg BID PO Last administered on 03/23/18 08:17; Admin Dose 400 MG; Start 01/25/18 at 21:00 Nystatin 1 applic BID TOP Last administered on 03/23/18 08:24; Admin Dose 1 APPLIC; Start 01/25/18 at 21:00 Pyridoxine HCl (Vitamin B6) 50 mg DAILY PO Last administered on 03/23/18 08:17; Admin Dose 50 MG; Start 01/26/18 at 09:00 Risperidone (Risperdal) 1 mg QHS PO Last administered on 03/22/18 20:31; Admin Dose 1 MG; Start 01/25/18 at 21:00 Zonisamide (Zonegran) 300 mg QHS PO Last administered on 03/22/18 20:30; Admin Dose 300 MG; Start 01/25/18 at 21:00 Eye Lubricant (Artificial Tears Oph) 1 drop Q8 BOTH EYES Last administered on 03/23/18 13:26; Admin Dose 1 DROP; Start 01/25/18 at 22:00 Miscellaneous [facility] This patient woody... PRN PRN XX wound; Start 01/25/18 at 16:30 Vitamin A/Vitamin D (Vitamin A & D Oint) 1 applic BID TOP Last administered on 03/23/18 08:17; Admin Dose 1 APPLIC; Start 01/26/18 at 21:00 Docusate Sodium (Colace) 200 mg BID PO Last administered on 03/23/18 08:20; Admin Dose 200 MG; Start 01/27/18 at 21:00 Enoxaparin Sodium (Lovenox) 40 mg DAILY SC Last administered on 03/23/18 08:16; Admin Dose 40 MG; Start 01/28/18 at 09:00 Sodium Hypochlorite (Dakin'S (Dilute )) 1 applic DAILY IRR Last administered on 03/23/18 10:05; Admin Dose 1 APPLIC; Start 01/27/18 at 18:30 Collagenase (Santyl) 1 applic DAILY TOP Last administered on 03/23/18 08:16; Admin Dose 1 APPLIC; Start 01/27/18 at 17:30 Collagenase (Santyl) 1 applic DAILY TOP Last administered on 03/23/18 08:17; Admin Dose 1 APPLIC; Start 02/04/18 at 09:00 Nitroglycerin (Nitroglycerin (Sl Tab) 0.4 Mg) 1 tab Q5M PRN SL ANGINA; Start 02/05/18 at 07:00 Diphenhydramine HCl (Benadryl) 25 mg Q6H PRN IV itching Last administered on 02/20/18at 09:57; Admin Dose 25 MG; Start 02/19/18 at 14:00 Silver Sulfadiazine (Thermazene 1% 25 Gm) 1 applic DAILY TOP Last administered on 03/23/18 08:25; Admin Dose 1 APPLIC; Start 03/07/18 at 09:00 Zinc Sulfate (Zinc Sulfate) 220 mg DAILY PO Last administered on 03/23/18 08:17; Admin Dose 220 MG; Start 03/12/18 at 14:30 Ascorbic Acid (Vitamin C) 500 mg DAILY PO Last administered on 03/23/18 08:17; Admin Dose 500 MG; Start 03/12/18 at 14:30 Multivitamins Therapeutic (Theragran) 1 tab DAILY PO Last administered on 03/23/18 08:17; Admin Dose 1 TAB; Start 03/12/18 at 14:30 Magnesium Hydroxide (Milk Of Mag) 30 ml DAILY PRN PO CONSTIPATION; Start 03/13/18 at 13:00 ANGELI MESA MD Mar 23, 2018 13:56
[2018-03-23 14:08] VITALS: BP 113/63; PULSE 75; RESP 18
--- NOTE | 2018-03-23 15:28 | NUR ---
NEELA Notes: Pt remains alert and oriented, afebrile, no acute distress noted, breathing even and unlabored, wound vac changed tolerated well, turned and repositioned, kepr clean and dry, incontinence care done. Dr. Andrews and SUKUMAR Amaro of DR. Wynne aware regarding + VRE on Right foot wound no any order at this time. Pt on currently on isolation, precaution observed. Hourly rounding done, call light within reach, bed alarm on. Will continue to monitor until the end of the shift. Addendum: 03/23/18 at 1806 by WENDY ESCOBAR RN No significant events noted during this shift. manager medicaid still working regarding pt placement. Will endorse for continuity of care. Addendum: 03/23/18 at 1853 by WENDY ESCOBAR RN Per SUKUMAR Amaro she will coordinate with SUKUMAR Oliveira regarding VRE of right foot result.
[2018-03-23 20:24] VITALS: BP 114/72; PULSE 81; RESP 20
[2018-03-23] MEDS: RISPERIDONE 1 MG TAB PO SCH (21:02)
[2018-03-23] MEDS: ZONISAMIDE 100 MG CAP PO SCH (21:02)
[2018-03-23] MEDS: DOXYCYCLINE 100 MG TAB PO SCH (21:02)
[2018-03-23] MEDS: AMOXICILLIN 500 MG CAP PO SCH (21:36)
[2018-03-24 02:48] VITALS: BP 122/57; PULSE 74; RESP 18
[2018-03-24] MEDS: ARTIFICIAL TEARS 15 ML OPH BOTH EYES SCH ×3 (05:29→21:00)
[2018-03-24] MEDS: AMOXICILLIN 500 MG CAP PO SCH ×3 (05:29→22:21)
[2018-03-24] MEDS: HYDROCODONE/APAP (5/325) TAB PO PRN ×3 (05:32→20:49)
--- NOTE | 2018-03-24 06:43 | NUR ---
pt alert,oriented x4, no sob, complained of gen body pain once during the shift. norco 5/325 mg tab po given, repositioning done. offloading of heels done w/ pillows. pain medication effective in relieving pain. wound vac patent and in place
[2018-03-24 08:10] VITALS: BP 96/61; PULSE 84; RESP 18
[2018-03-24] MEDS: COLLAGENASE 5 GM (UD JAR) TOP SCH ×2 (09:00)
[2018-03-24] MEDS: SODIUM HYPOCHLORITE (1/40) 1 APPLIC BTL IRR SCH (09:00)
[2018-03-24] MEDS: ENOXAPARIN 40 MG/0.4 ML SYG SC SCH (09:33)
[2018-03-24] MEDS: MULTIVITAMINS THERAPEUTIC TAB PO SCH (09:34)
[2018-03-24] MEDS: ZINC SULFATE 220 MG CAP PO SCH (09:34)
[2018-03-24] MEDS: GABAPENTIN 100 MG CAP PO SCH ×2 (09:34→20:55)
[2018-03-24] MEDS: DOCUSATE SODIUM 100 MG CAP PO SCH ×2 (09:34→20:51)
[2018-03-24] MEDS: ALLOPURINOL 100 MG TAB PO SCH (09:34)
[2018-03-24] MEDS: MAGNESIUM OXIDE 400 MG TAB PO SCH ×2 (09:34→20:50)
[2018-03-24] MEDS: FOLIC ACID 1 MG TAB PO SCH (09:34)
[2018-03-24] MEDS: VITAMIN A & D 5 GM OINT PACKET TOP SCH ×2 (09:34→20:49)
[2018-03-24] MEDS: FAMOTIDINE 20 MG TAB PO SCH ×2 (09:34→20:55)
[2018-03-24] MEDS: PYRIDOXINE 50 MG TAB PO SCH (09:35)
[2018-03-24] MEDS: ASCORBIC ACID 500 MG TAB PO SCH (09:35)
[2018-03-24] MEDS: BACLOFEN 10 MG TAB PO SCH ×3 (09:35→20:50)
[2018-03-24] MEDS: DOXYCYCLINE 100 MG TAB PO SCH ×2 (09:35→20:49)
[2018-03-24] MEDS: DULOXETINE 30 MG CAP DR PO SCH (09:35)
[2018-03-24] MEDS: BALSAM PERU/CASTOR OIL 60 GM TUBE TOP SCH (09:39)
[2018-03-24] MEDS: NYSTATIN 15 GM POWDER BTL TOP SCH ×2 (09:39→20:56)
[2018-03-24] MEDS: SILVER SULFADIAZINE 1% 25 GM CR TOP SCH (09:39)
--- NOTE | 2018-03-24 10:45 | PN ---
Date/Time of Note Date/Time of Note DATE: 03/24/18 TIME: 10:35 Assessment/Plan Lines/Catheters IV C[facility] Type (from [facility] Saline Lock Benavidez in Place (from Nrs): Yes Assessment/Plan Chief Complaint/Hosp Course 1. Stage 4 necrotic wound: s/p repeat excisional debridement 03/19/18, bone sample sent for path; status post I&D&D of right thigh blister; bone path noted: gangrenous necrosis -cont local care> Santyl to sacrum > consider follow ups at wound care clinic near where he will be discharged> wound VAC to sacrum-nursing to track tube in order to prevent equipment related skin damage> ok to be discharged without woundvac if needed -Continue Silver ointment to right thigh blister (S/P I&D) -frequent turning and [id number] with patient importance of frequent turning however per nursing patient always returns to his back after being repositioned-once again reinforced importance of offloading -low air loss mattress -vitamin c -short term zinc -optimize nutrition -skin protection against devices -further debridement prn 2. Bilateral lower extremity ulcers: with wound vac -As above -Per podiatry 3. Hypochromic microcytic anemia: -Monitor and transfuse as needed 4. Depression: -Psychiatric optimization 5. Paraplegia -Supportive 6. Hypertension -nutrition and medication optimization Thank you. Patient seen and examined in collaboration with Dr. Brian Angulo. Subjective 24 Hr Interval Summary Feels well. No fevers, chills, sob, congested cough, cp, palpitations, woody, dizziness, n/v/d/dysuria. Pending discharge placement. Exam/Review of Systems Vital Signs Vitals Vital Signs Date Temp Pulse Resp B/P (MAP) Pulse Ox O2 O2 Flow FiO2 Time Delivery Rate 03/24/18 98.4 84 18 96/61 (73) 97 08:10 03/23/18 Room Air 14:08 Intake and Output 03/23/18 03/23/18 03/24/18 1515:00 23:00 07:00 IntakeIntake Total 1460 ml 240 ml OutputOutput Total 1600 ml 1000 ml BalanceBalance -140 ml -760 ml Exam Free Text/Dictation Constitutional: alert, oriented Psych: nl mood/affect, anxiety (Minimal) Head: normocephalic, atraumatic Eyes: nl conjunctiva, EOMI, nl sclera ENMT: nl external ears & nose, nl lips & teeth, mucosa pink and moist Neck: supple, non-tender Respiratory: normal air movement; No congested cough Cardiovascular: regular rate and rhythm; No edema Gastrointestinal: soft, non-tender; No distended Musculoskeletal: nl extremities to inspection; No nl gait and stance Extremities: normal pulses; No edema Neurological: nl mental status, nl speech Skin: nl turgor, Sacral wound: no periwound erythema, minimal drainage (serosanguineous), wound vac; wound vac to lower leg; right thigh skin blister (improving-healing) FERNANDO DÍAZ NP Mar 24, 2018 10:45
--- NOTE | 2018-03-24 11:33 | NUR ---
DC PLANNING UPDATE: FFUP ROXANE WITH [employer] [facility] WITH [facility] FASTENER IN [facility], [phone]/LIZA NOT IN SNF, CALLED HER CP # [phone] , LEFT MESSAGE RE FF UP WITH ROXANE. AWAITS CALL BACK. 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 Addendum: 03/24/18 at 1140 by GENOVEVA GONSALES CM Amended: Links added.
--- NOTE | 2018-03-24 14:02 | NUR ---
PT NOTE Therapy day number 21 Subjective Chronic pain Pain Scale FACES Pain Intensity 0 (0-10) Patient Stated Goal for Pain Relief 3 (0-10) Pain Level Comment BUE shoulders, no c/o pain in elsewhere, no increase in pain with tx Exercise Assessment Label Bilat Lower Extremity Exercise Type Manual Stretching Additional Exercise Comments BLE's in all planes Exercise Assessment Label Bilat Upper Extremity Exercise Type Active ROM Additional Exercise Comments Active scap retract, AROM UE includ IR and ER, pulls with sheet; chin tucks Exercise Start Time 14:02 Exercise End Time 14:27 Total Exercise Time 25 min (8-127) Additional Mobility Comments SBA sup>longsitting w/ bed in reverse trendelen, HOB slightly elevated Static Sitting Balance Fair Dynamic Sitting Balance Fair minus Additional Balance Assessments Comments balance in longsit during UE activ, using sheet and BR to correct balance Balance Training Static or Dynamic Start Time 14:27 Balance Training Static or Dynamic End Time 14:41 Total Balance Training Time 14 min (8-127) Safety Judgement Good Activity Tolerance Fair Equipment Present Drains Benavidez Catheter IV pump Additional Equipment Present 2 wound vac Post Treatment Pain Intensity 3 0-10 Total Treament Time 39 min (8-127) Total Minutes 39 Total Units 3 PT Technical Record Comment PT NOTE S:Pt reports chronic Bilat neck/shoulder/back pain, agreeable to PT. Cleared for PT per NEELA Burns O: Pt received semifowler in bed, pleasant, alert and oriented with wedge for BLE heel pressure relief, 2 wound vacs. Pt reports blisters on R hand 2/2 theraband overuse. Pt ed for moderation with BUE thera ex using thera bands to prevent increased pain/blisters. Performed bed mobility tr, manual stretching, transfer training and balance traiing per tech record above with SBA for longsitting in bed with bed in reverse trendelenberg. Pt BTB and positioned for comfort post-tx with call light and needs in reach, NEELA Burns present in room, pt in no apparent distress. A: Pt juan josé tx fairly, limited by BUE weakness and pressure wounds/multiple lines P: Cont POC, progress as able
[2018-03-24 15:07] VITALS: BP 107/68; PULSE 81; RESP 18
--- NOTE | 2018-03-24 15:15 | PN ---
Date/Time of Note Date/Time of Note DATE: 03/24/18 TIME: 15:14 Assessment/Plan VTE Prophylaxis Risk score (from Nsg)>0 risk: 5 Pharmacological prophylaxis: heparin Lines/Catheters IV Catheter Type (from Nrsg): Saline Lock Assessment/Plan Hospital Course 57 y/o paraplegic M patient presents to the floor with bilateral pressure heel wounds. Patient states they have been present for over two weeks. Patient states he was at another facility and his ex- also helps with the dressing changes and noticed worsening signs of the wound with foul smell. Patient denies f/c/n/v no chest pain or shortness of breath. Assessment/Plan 1) B/l decubitus heel ulcers right stage 2, left heel resolved 2) Right foot and ankle partial thickness wounds 3) Left decubitus ankle ulcer stage 2 4) Paraplegia b/l LE 5) Peripheral neuropathy 6) HTN 7) Depression Plan: Excisional debridement of skin/subQ/fascia of the right heel ulcer site using pickup/scissors and scalpel blade. Less than 20cm2 of area was debrided. Fibrotic tissue and biofilm was removed. Copious irrigation with dakins so lution. Continue with wound VAC to the right heel. Right foot wound cultures showing e. cloacae and enterococcus species. Continue with daily dressing changes to the other portions of the foot. Wound care orders are in place. Emphasized to nurse strict offloading of heels with pillows and offloading soft boots. X-rays reviewed and did not appreciate sign of osteomyelitis. Continue with IV abx as per recommendations. Non-invasive studies ordered: No focal hemodynamically significant stenosis in either lower extremity. Patient may follow up in outpatient [facility] wound clinic Subjective 24 Hr Interval Summary Free Text/Dictation No acute events overnight. Exam/Review of Systems Vital Signs Vitals Vital Signs Date Temp Pulse Resp B/P (MAP) Pulse Ox O2 O2 Flow FiO2 Time Delivery Rate 03/24/18 98.8 81 18 107/68 99 15:07 (81) 03/23/18 Room Air 14:08 Intake and Output 03/23/18 03/23/18 03/24/18 1515:00 23:00 07:00 IntakeIntake Total 1460 ml 240 ml OutputOutput Total 1600 ml 1000 ml BalanceBalance -140 ml -760 ml Exam Right heel ulceration site 2.5 x 3.5 x 0.5cm with fibro granular wound base. Wound probes to bone, there is no purulence appreciated. No proximal streaking Right anterior ankle ulceration 1.5 x 0.5 x 0.1cm with granular and fibrotic wound base, no probing to bone, no proximal streaking. There is signs of epithelialization left lateral malleolus ulcer 0.4 x 0.3 x 0.1cm granular no probing to bone, no proximal streaking, no foul odor Absent protective sensations Absent muscle strength to bilateral lower extremities. Non invasive arterial studies 01/27/18 IMPRESSION: No focal hemodynamically significant stenosis in either lower extremity. Medications Medications Current Medications IV Flush (NS 3 ml) 3 ml PER PROTOCOL IV ; Start 01/25/18 at 15:30 Ondansetron HCl (Zofran Inj) 4 mg Q6H PRN IV NAUSEA AND/OR VOMITING; Start 01/25/18 at 15:30 Acetaminophen (Tylenol Tab) 650 mg Q6H PRN PO PAIN LEVEL 1-3 OR FEVER Last administered on 03/18/18 20:36; Admin Dose 650 MG; Start 01/25/18 at 15:30 Acetaminophen/ Hydrocodone Bitart ([place] (5/325)) 1 tab Q6H PRN PO MODERATE PAIN LEVEL 4-6 Last administered on 03/24/18 13:30; Admin Dose 1 TAB; Start 01/25/18 at 15:30 Allopurinol (Zyloprim) 100 mg DAILY PO Last administered on 03/24/18 09:34; Admin Dose 100 MG; Start 01/26/18 at 09:00 Baclofen (Lioresal) 10 mg TID PO Last administered on 03/24/18 13:30; Admin Dose 10 MG; Start 01/25/18 at 21:00 Carvedilol (Coreg) 12.5 mg BID PO Last administered on 03/23/18 21:02; Admin Dose 12.5 MG; Start 01/25/18 at 21:00 Duloxetine HCl (Cymbalta) 30 mg DAILY PO Last administered on 03/24/18 09:35; Admin Dose 30 MG; Start 01/26/18 at 09:00 Famotidine (Pepcid) 20 mg BID PO Last administered on 03/24/18 09:34; Admin Dose 20 MG; Start 01/25/18 at 21:00 Folic Acid (Folic Acid) 1 mg DAILY PO Last administered on 03/24/18 09:34; Admin Dose 1 MG; Start 01/26/18 at 09:00 Gabapentin (Neurontin) 100 mg BID PO Last administered on 03/24/18 09:34; Admin Dose 100 MG; Start 01/25/18 at 21:00 Magnesium Oxide (Mag-Ox 400) 400 mg BID PO Last administered on 03/24/18 09:34; Admin Dose 400 MG; Start 01/25/18 at 21:00 Nystatin 1 applic BID TOP Last administered on 03/24/18 09:39; Admin Dose 1 APPLIC; Start 01/25/18 at 21:00 Pyridoxine HCl (Vitamin B6) 50 mg DAILY PO Last administered on 03/24/18 09:35; Admin Dose 50 MG; Start 01/26/18 at 09:00 Risperidone (Risperdal) 1 mg QHS PO Last administered on 03/23/18 21:02; Admin Dose 1 MG; Start 01/25/18 at 21:00 Zonisamide (Zonegran) 300 mg QHS PO Last administered on 03/23/18 21:02; Admin Dose 300 MG; Start 01/25/18 at 21:00 Eye Lubricant (Artificial Tears Oph) 1 drop Q8 BOTH EYES Last administered on 03/24/18 13:30; Admin Dose 1 DROP; Start 01/25/18 at 22:00 Miscellaneous Information (Pending [facility] Order For Wound Care) This patient woody... PRN PRN XX wound; Start 01/25/18 at 16:30 Vitamin A/Vitamin D (Vitamin A & D Oint) 1 applic BID TOP Last administered on 03/24/18 09:34; Admin Dose 1 APPLIC; Start 01/26/18 at 21:00 Docusate Sodium (Colace) 200 mg BID PO Last administered on 03/24/18 09:34; Admin Dose 200 MG; Start 01/27/18 at 21:00 Enoxaparin Sodium (Lovenox) 40 mg DAILY SC Last administered on 03/24/18 09:33; Admin Dose 40 MG; Start 01/28/18 at 09:00 Sodium Hypochlorite (Dakin'S (Dilute 1/40)) 1 applic DAILY IRR Last administered on 03/23/18 10:05; Admin Dose 1 APPLIC; Start 01/27/18 at 18:30 Collagenase (Santyl) 1 applic DAILY TOP Last administered on 03/23/18 08:16; Admin Dose 1 APPLIC; Start 01/27/18 at 17:30 Collagenase (Santyl) 1 applic DAILY TOP Last administered on 03/23/18 08:17; Admin Dose 1 APPLIC; Start 02/04/18 at 09:00 Nitroglycerin (Nitroglycerin (Sl Tab) 0.4 Mg) 1 tab Q5M PRN SL ANGINA; Start 02/05/18 at 07:00 Diphenhydramine HCl (Benadryl) 25 mg Q6H PRN IV itching Last administered on 02/20/18at 09:57; Admin Dose 25 MG; Start 02/19/18 at 14:00 Silver Sulfadiazine (Thermazene 1% 25 Gm) 1 applic DAILY TOP Last administered on 03/24/18 09:39; Admin Dose 1 APPLIC; Start 03/07/18 at 09:00 Zinc Sulfate (Zinc Sulfate) 220 mg DAILY PO Last administered on 03/24/18 09:34; Admin Dose 220 MG; Start 03/12/18 at 14:30 Ascorbic Acid (Vitamin C) 500 mg DAILY PO Last administered on 03/24/18 09:35; Admin Dose 500 MG; Start 03/12/18 at 14:30 Multivitamins Therapeutic (Theragran) 1 tab DAILY PO Last administered on 03/24/18 09:34; Admin Dose 1 TAB; Start 03/12/18 at 14:30 Magnesium Hydroxide (Milk Of Mag) 30 ml DAILY PRN PO CONSTIPATION; Start 03/13/18 at 13:00 Amoxicillin (Amoxicillin) 500 mg Q8 PO Last administered on 03/24/18 13:30; Admin Dose 500 MG; Start 03/23/18 at 22:00 Doxycycline Hyclate (Vibramycin) 100 mg BID PO Last administered on 03/24/18 09:35; Admin Dose 100 MG; Start 03/23/18 at 21:00 LUKE BONILLA DPM Mar 24, 2018 15:15
--- NOTE | 2018-03-24 17:27 | PN ---
Date/Time of Note Date/Time of Note DATE: 03/24/18 TIME: 17:26 Assessment/Plan VTE Prophylaxis Risk score (from Ns)>0 risk: 5 SCD applied (from Ns): Yes Pharmacological prophylaxis: heparin Lines/Catheters IV Catheter Type (from Nrs): [place] Assessment/Plan Hospital Course General: Patient is laying in bed and answers questions appropriately, does not have feeling below the shoulders Mentation: Patient is alert and oriented 4, Head: Normocephalic atraumatic Eyes: EOMI, pupils reactive to light Neck: Supple, nontender, midline Respiratory: Clear to auscultation bilaterally Cardiovascular: regular rate, no obvious murmurs Gastrointestinal: non-tender to palpation, bowel sounds heard. Neurological: Moves upper extremities appropriately, no feeling or movement in the lower extremities Skin: No new skin lesions ASSESSMENT/PLAN: Very unfortunate 57-year-old male with a history of paraplegia secondary to spinal cord syndrome 6 months ago, who also resides in a custodial, presented to the emergency room with worsening bilateral heel ulcers with foul-smelling drainage.... 1. Bilateral heel Decub ulcers without evidence of OM -s/p excisional debridement of bilateral heel decubitus wounds 01/26, 03/24. Wound vac applied -Left heel resolved -ulcers progressed on Rt heel => Repeat Bedside debridement and application of wound vac 03/04/18 -Antibiotic management per ID=>on orals for now -Wound care 2. Paraplegia secondary to spinal disorder and back surgery 6 months ago -Exact nature of disorder and surgery unclear -Continue baclofen 3. Depression -Continue home Cymbalta 4. Hypertension -Continue Coreg 5. Debility secondary to #2. -Patient resides in a custodial. 6. Chronic anemia with mild iron deficiency. -s/p tx 02/03=>stable H&H -Continue oral iron replacement. 7. Unstageable pressure ulcers, sacral coccyx -S/p bedside debridement 02/13/18=> deteriorates further secondary to immobilization/noncompliance with nursing turning protocol. -Repeat debridement 03/10/2018 w/ application of wound VAC -WC: VANCO RESISTANT enterococcus 3+, coag negative staph 1+, alpha hemolytic strep 1+. -On appropriate antimicrobials -Continue wound care -Add vitamin C/zinc/Theragen. Continue protein supplements. -Dietary Consult 8. Constipation -Continue stool softeners. PRN laxative Prophylaxis:Lovenox/Pepcid Diet: Regular CODE STATUS: Full code Disposition: Wound care/antibiotics. Pending custodial placement Subjective 24 Hr Interval Summary Free Text/Dictation Foot wound debrided and wound vac applied today Exam/Review of Systems Vital Signs Vitals Vital Signs Date Temp Pulse Resp B/P (MAP) Pulse Ox O2 O2 Flow FiO2 Time Delivery Rate 03/24/18 98.8 81 18 107/68 99 15:07 (81) 03/23/18 Room Air 14:08 Intake and Output 03/23/18 03/23/18 03/24/18 1515:00 23:00 07:00 IntakeIntake Total 1460 ml 240 ml OutputOutput Total 1600 ml 1000 ml BalanceBalance -140 ml -760 ml Medications Medications Current Medications IV Flush (NS 3 ml) 3 ml PER PROTOCOL IV ; Start 01/25/18 at 15:30 Ondansetron HCl (Zofran Inj) 4 mg Q6H PRN IV NAUSEA AND/OR VOMITING; Start 01/25/18 at 15:30 Acetaminophen (Tylenol Tab) 650 mg Q6H PRN PO PAIN LEVEL 1-3 OR FEVER Last administered on 03/18/18 20:36; Admin Dose 650 MG; Start 01/25/18 at 15:30 Acetaminophen/ Hydrocodone Bitart ([place] (5/325)) 1 tab Q6H PRN PO MODERATE PAIN LEVEL 4-6 Last administered on 03/24/18 13:30; Admin Dose 1 TAB; Start 01/25/18 at 15:30 Allopurinol (Zyloprim) 100 mg DAILY PO Last administered on 03/24/18 09:34; Admin Dose 100 MG; Start 01/26/18 at 09:00 Baclofen (Lioresal) 10 mg TID PO Last administered on 03/24/18 13:30; Admin Dose 10 MG; Start 01/25/18 at 21:00 Carvedilol (Coreg) 12.5 mg BID PO Last administered on 03/23/18 21:02; Admin Dose 12.5 MG; Start 01/25/18 at 21:00 Duloxetine HCl (Cymbalta) 30 mg DAILY PO Last administered on 03/24/18 09:35; Admin Dose 30 MG; Start 01/26/18 at 09:00 Famotidine (Pepcid) 20 mg BID PO Last administered on 03/24/18 09:34; Admin Dose 20 MG; Start 01/25/18 at 21:00 Folic Acid (Folic Acid) 1 mg DAILY PO Last administered on 03/24/18 09:34; Admin Dose 1 MG; Start 01/26/18 at 09:00 Gabapentin (Neurontin) 100 mg BID PO Last administered on 03/24/18 09:34; Admin Dose 100 MG; Start 01/25/18 at 21:00 Magnesium Oxide (Mag-Ox 400) 400 mg BID PO Last administered on 03/24/18 09:34; Admin Dose 400 MG; Start 01/25/18 at 21:00 Nystatin 1 applic BID TOP Last administered on 03/24/18 09:39; Admin Dose 1 APPLIC; Start 01/25/18 at 21:00 Pyridoxine HCl (Vitamin B6) 50 mg DAILY PO Last administered on 03/24/18 09:35; Admin Dose 50 MG; Start 01/26/18 at 09:00 Risperidone (Risperdal) 1 mg QHS PO Last administered on 03/23/18 21:02; Admin Dose 1 MG; Start 01/25/18 at 21:00 Zonisamide (Zonegran) 300 mg QHS PO Last administered on 03/23/18 21:02; Admin Dose 300 MG; Start 01/25/18 at 21:00 Eye Lubricant (Artificial Tears Oph) 1 drop Q8 BOTH EYES Last administered on 03/24/18 13:30; Admin Dose 1 DROP; Start 01/25/18 at 22:00 Miscellaneous Information [facility] This patient woody. .. PRN PRN XX wound; Start 01/25/18 at 16:30 Vitamin A/Vitamin D (Vitamin A & D Oint) 1 applic BID TOP Last administered on 03/24/18 09:34; Admin Dose 1 APPLIC; Start 01/26/18 at 21:00 Docusate Sodium (Colace) 200 mg BID PO Last administered on 03/24/18 09:34; Admin Dose 200 MG; Start 01/27/18 at 21:00 Enoxaparin Sodium (Lovenox) 40 mg DAILY SC Last administered on 03/24/18 09:33; Admin Dose 40 MG; Start 01/28/18 at 09:00 Sodium Hypochlorite (Dakin'S (Dilute )) 1 applic DAILY IRR Last admini stered on 03/23/18 10:05; Admin Dose 1 APPLIC; Start 01/27/18 at 18:30 Collagenase (Santyl) 1 applic DAILY TOP Last administered on 03/23/18 08:16; Admin Dose 1 APPLIC; Start 01/27/18 at 17:30 Collagenase (Santyl) 1 applic DAILY TOP Last administered on 03/23/18 08:17; Admin Dose 1 APPLIC; Start 02/04/18 at 09:00 Nitroglycerin (Nitroglycerin (Sl Tab) 0.4 Mg) 1 tab Q5M PRN SL ANGINA; Start 02/05/18 at 07:00 Diphenhydramine HCl (Benadryl) 25 mg Q6H PRN IV itching Last administered on 02/20/18at 09:57; Admin Dose 25 MG; Start 02/19/18 at 14:00 Silver Sulfadiazine (Thermazene 1% 25 Gm) 1 applic DAILY TOP Last administered on 03/24/18 09:39; Admin Dose 1 APPLIC; Start 03/07/18 at 09:00 Zinc Sulfate (Zinc Sulfate) 220 mg DAILY PO Last administered on 03/24/18 09:34; Admin Dose 220 MG; Start 03/12/18 at 14:30 Ascorbic Acid (Vitamin C) 500 mg DAILY PO Last administered on 03/24/18 09:35; Admin Dose 500 MG; Start 03/12/18 at 14:30 Multivitamins Therapeutic (Theragran) 1 tab DAILY PO Last administered on 03/24/18 09:34; Admin Dose 1 TAB; Start 03/12/18 at 14:30 Magnesium Hydroxide (Milk Of Mag) 30 ml DAILY PRN PO CONSTIPATION; Start 03/13/18 at 13:00 Amoxicillin (Amoxicillin) 500 mg Q8 PO Last administered on 03/24/18 13:30; Admin Dose 500 MG; Start 03/23/18 at 22:00 Doxycycline Hyclate (Vibramycin) 100 mg BID PO Last administered on 03/24/18 09:35; Admin Dose 100 MG; Start 1/21/19 at 21:00 ANGELI MESA MD Mar 24, 2018 17:27
--- NOTE | 2018-03-24 18:10 | NUR ---
rn notes patient is alert and oriented, verbally responsive and able to make needs known, complains of pain and medicated as ordered and effective. all due medicine given and all needs attended to. dressing changed and kept clean and dry. changed wound vac dressing for right heel. kept clean and dry. turned and repositioned as scheduled. no new skin issues noted. call light placed within reach and fall precautions observed well. remains afebrile and will continue to monitor.
[2018-03-24 20:09] VITALS: BP 114/66; PULSE 97; RESP 19
[2018-03-24] MEDS: RISPERIDONE 1 MG TAB PO SCH (20:50)
[2018-03-24] MEDS: ZONISAMIDE 100 MG CAP PO SCH (21:00)
[2018-03-25 02:00] VITALS: BP 108/65; PULSE 86; RESP 18
[2018-03-25] MEDS: HYDROCODONE/APAP (5/325) TAB PO PRN ×4 (02:51→20:18)
--- NOTE | 2018-03-25 06:26 | NUR ---
End of Shift RN Note: No acute changes during my shift. Pt remains stable. Wound vacs in place, suction on. Sacrum wound vac dressing changed as it was soiled. All needs tended to. fall precautions implemented and continued. Hourly rounding provided. Will endorse plan of care to AM shift.
[2018-03-25] MEDS: ARTIFICIAL TEARS 15 ML OPH BOTH EYES SCH ×3 (06:57→23:02)
[2018-03-25] MEDS: AMOXICILLIN 500 MG CAP PO SCH ×3 (06:57→23:02)
[2018-03-25] MEDS: SODIUM HYPOCHLORITE (1/40) 1 APPLIC BTL IRR SCH (08:18)
[2018-03-25 08:33] VITALS: BP 114/67; PULSE 68; RESP 17
[2018-03-25] MEDS: ASCORBIC ACID 500 MG TAB PO SCH (08:49)
[2018-03-25] MEDS: MAGNESIUM OXIDE 400 MG TAB PO SCH ×2 (08:49→20:15)
[2018-03-25] MEDS: GABAPENTIN 100 MG CAP PO SCH ×2 (08:49→20:16)
[2018-03-25] MEDS: DOXYCYCLINE 100 MG TAB PO SCH ×2 (08:49→20:16)
[2018-03-25] MEDS: DOCUSATE SODIUM 100 MG CAP PO SCH ×2 (08:49→20:15)
[2018-03-25] MEDS: MULTIVITAMINS THERAPEUTIC TAB PO SCH (08:49)
[2018-03-25] MEDS: ALLOPURINOL 100 MG TAB PO SCH (08:49)
[2018-03-25] MEDS: BACLOFEN 10 MG TAB PO SCH ×3 (08:49→20:15)
[2018-03-25] MEDS: ZINC SULFATE 220 MG CAP PO SCH (08:49)
[2018-03-25] MEDS: PYRIDOXINE 50 MG TAB PO SCH (08:49)
[2018-03-25] MEDS: FOLIC ACID 1 MG TAB PO SCH (08:49)
[2018-03-25] MEDS: DULOXETINE 30 MG CAP DR PO SCH (08:49)
[2018-03-25] MEDS: FAMOTIDINE 20 MG TAB PO SCH ×2 (08:49→20:15)
[2018-03-25] MEDS: COLLAGENASE 5 GM (UD JAR) TOP SCH ×2 (08:51)
[2018-03-25] MEDS: ENOXAPARIN 40 MG/0.4 ML SYG SC SCH (08:51)
[2018-03-25] MEDS: SILVER SULFADIAZINE 1% 25 GM CR TOP SCH (08:52)
[2018-03-25] MEDS: VITAMIN A & D 5 GM OINT PACKET TOP SCH ×2 (08:52→21:00)
[2018-03-25] MEDS: BALSAM PERU/CASTOR OIL 60 GM TUBE TOP SCH (08:52)
[2018-03-25] MEDS: NYSTATIN 15 GM POWDER BTL TOP SCH ×2 (08:53→21:00)
--- NOTE | 2018-03-25 10:33 | PN ---
Date/Time of Note Date/Time of Note DATE: 03/25/18 TIME: 10:30 Assessment/Plan Lines/Catheters IV Catheter Type (from [facility]): Peripheral IV Benavidez in Place (from [facility]): Yes Assessment/Plan Chief Complaint/Hosp Course 1. Stage 4 necrotic wound: s/p repeat excisional debridement 03/19/18, bone sample sent for path; status post I&D&D of right thigh blister; bone path noted: gangrenous necrosis -cont local care> Santyl to sacrum > consider follow ups at wound care clinic near where he will be discharged> wound VAC to sacrum-nursing to track tube in order to prevent equipment related skin damage> ok to be discharged without woundvac if needed -Continue Silver ointment to right thigh blister (S/P I&D)> almost healed -frequent turning and [id number] with patient importance of frequent turning however per nursing patient always returns to his back after being repositioned-once again reinforced importance of offloading -low air loss mattress -vitamin c -short term zinc -optimize nutrition -skin protection against devices -further debridement prn- will debride again tomorrow 2. Bilateral lower extremity ulcers: with wound vac -As above -Per podiatry 3. Hypochromic microcytic anemia: -Monitor and transfuse as needed 4. Depression: -Psychiatric optimization 5. Paraplegia -Supportive 6. Hypertension -nutrition and medication optimization Thank you. Patient seen and examined in collaboration with Dr. Brian Angulo. Subjective 24 Hr Interval Summary Feels well. Wound vacs for heel and sacrum ongoing. No fevers, chills, sob, congested cough, cp, palpitations, woody, dizziness, n/v/d/dysuria. Exam/Review of Systems Vital Signs Vitals Vital Signs Date Temp Pulse Resp B/P (MAP) Pulse Ox O2 O2 Flow FiO2 Time Delivery Rate 03/25/18 98.6 68 17 114/67 99 08:33 (83) 03/23/18 Room Air 14:08 Intake and Output 03/24/18 03/24/18 03/25/18 1414:59 22:59 06:59 IntakeIntake Total 480 ml OutputOutput Total 800 ml 2000 ml BalanceBalance -800 ml -1520 ml Exam Free Text/Dictation Constitutional: alert, oriented Psych: nl mood/affect, anxiety (Minimal) Head: normocephalic, atraumatic Eyes: nl conjunctiva, EOMI, nl sclera ENMT: nl external ears & nose, nl lips & teeth, mucosa pink and moist Neck: supple, non-tender Respiratory: normal air movement; No congested cough Cardiovascular: regular rate and rhythm; No edema Gastrointestinal: soft, non-tender; No distended Musculoskeletal: nl extremities to inspection; No nl gait and stance Extremities: normal pulses; No edema Neurological: nl mental status, nl speech Skin: nl turgor, Sacral wound: no periwound erythema, minimal drainage (sero sanguineous), slough, wound vac; wound vac to lower leg; right thigh skin blister (improving-healing) FERNANDO DÍAZ NP Mar 25, 2018 10:33
--- NOTE | 2018-03-25 13:45 | CONS ---
Assessment/Plan Assessment/Plan Hospital Course No events overnight patient looks comfortable. Repeat cultures of the right foot grew VRE susceptible to ampicillin, coag negative staph and oxacillin sensitive staph aureus both susceptible to doxycycline Antimicrobials: Amoxicillin, doxycycline Physical examination: Well-nourished well-developed middle-aged man who is awake in no distress. Head atraumatic normocephalic sclera nonicteric vehicle mucosa dry neck is supple chest rise symmetrical breath sounds diminished bases heart S1-S2. Abdomen soft bowel sounds present. Extremities without cyanosis. Assessment: 1. Right foot ulceration status post debridement down to muscle 2. Stage III sacral wound, s/p debridement 03/10/18 3. Paraplegia 4. Hypertension 5. Diabetes Plan: Patient remains stable, continue abx, wound care per surgical and podiatry rec-s. Consultation Date/Type/Reason Admit Date/Time Jan 26, 2018 at 08:29 Initial Consult Date 02/12/18 Type of Consult id Requesting Provider: LIVIA ADAME V. CV RN Exam/Review of Systems Vital Signs Vitals Vital Signs Date Temp Pulse Resp B/P (MAP) Pulse Ox O2 O2 Flow FiO2 Time Delivery Rate 03/25/18 98.6 68 17 114/67 99 08:33 (83) 03/23/18 Room Air 14:08 Intake and Output 03/24/18 03/24/18 03/25/18 1515:00 23:00 07:00 IntakeIntake Total 480 ml OutputOutput Total 800 ml 2000 ml BalanceBalance -800 ml -1520 ml Medications Medications Current Medications IV Flush (NS 3 ml) 3 ml PER PROTOCOL IV ; Start 01/25/18 at 15:30 Ondansetron HCl (Zofran Inj) 4 mg Q6H PRN IV NAUSEA AND/OR VOMITING; Start 01/25/18 at 15:30 Acetaminophen (Tylenol Tab) 650 mg Q6H PRN PO PAIN LEVEL 1-3 OR FEVER Last administered on 03/18/18at 20:36; Admin Dose 650 MG; Start 01/25/18 at 15:30 Acetaminophen/ Hydrocodone Bitart ([place] (5/325)) 1 tab Q6H PRN PO MODERATE PAIN LEVEL 4-6 Last administered on 03/25/18at 07:34; Admin Dose 1 TAB; Start 01/25/18 at 15:30 Allopurinol (Zyloprim) 100 mg DAILY PO Last administered on 03/25/18 08:49; A dmin Dose 100 MG; Start 01/26/18 at 09:00 Baclofen (Lioresal) 10 mg TID PO Last administered on 03/25/18 08:49; Admin Dose 10 MG; Start 01/25/18 at 21:00 Carvedilol (Coreg) 12.5 mg BID PO Last administered on 03/25/18 08:50; Admin Dose 12.5 MG; Start 01/25/18 at 21:00 Duloxetine HCl (Cymbalta) 30 mg DAILY PO Last administered on 03/25/18 08:49; Admin Dose 30 MG; Start 01/26/18 at 09:00 Famotidine (Pepcid) 20 mg BID PO Last administered on 03/25/18 08:49; Admin Dose 20 MG; Start 01/25/18 at 21:00 Folic Acid (Folic Acid) 1 mg DAILY PO Last administered on 03/25/18 08:49; Admin Dose 1 MG; Start 01/26/18 at 09:00 Gabapentin (Neurontin) 100 mg BID PO Last administered on 03/25/18 08:49; Admin Dose 100 MG; Start 01/25/18 at 21:00 Magnesium Oxide (Mag-Ox 400) 400 mg BID PO Last administered on 03/25/18 08:49; Admin Dose 400 MG; Start 01/25/18 at 21:00 Nystatin 1 applic BID TOP Last administered on 03/25/18 08:53; Admin Dose 1 APPLIC; Start 01/25/18 at 21:00 Pyridoxine HCl (Vitamin B6) 50 mg DAILY PO Last administered on 03/25/18 08:49; Admin Dose 50 MG; Start 01/26/18 at 09:00 Risperidone (Risperdal) 1 mg QHS PO Last administered on 03/24/18 20:50; Admin Dose 1 MG; Start 01/25/18 at 21:00 Zonisamide (Zonegran) 300 mg QHS PO Last administered on 03/24/18 21:00; Admin Dose 300 MG; Start 01/25/18 at 21:00 Eye Lubricant (Artificial Tears Oph) 1 drop Q8 BOTH EYES Last administered on 03/25/18 06:57; Admin Dose 1 DROP; Start 01/25/18 at 22:00 Miscellaneous Information (Pending Santyl Order For Wound Care) This patient woody... PRN PRN XX wound; Start 01/25/18 at 16:30 Vitamin A/Vitamin D (Vitamin A & D Oint) 1 applic BID TOP Last administered on 03/24/18 20:49; Admin Dose 1 APPLIC; Start 01/26/18 at 21:00 Docusate Sodium (Colace) 200 mg BID PO Last administered on 03/25/18 08:49; Admin Dose 200 MG; Start 01/27/18 at 21:00 Enoxaparin Sodium (Lovenox) 40 mg DAILY SC Last administered on 03/25/18 08:51; Admin Dose 40 MG; Start 01/28/18 at 09:00 Sodium Hypochlorite (Dakin'S (Dilute )) 1 applic DAILY IRR Last administered on 03/23/18 10:05; Admin Dose 1 APPLIC; Start 01/27/18 at 18:30 Collagenase (Santyl) 1 applic DAILY TOP Last administered on 03/23/18 08:16; Admin Dose 1 APPLIC; Start 01/27/18 at 17:30 Collagenase (Santyl) 1 applic DAILY TOP Last administered on 03/23/18 08:17; Admin Dose 1 APPLIC; Start 02/04/18 at 09:00 Nitroglycerin (Nitroglycerin (Sl Tab) 0.4 Mg) 1 tab Q5M PRN SL ANGINA; Start 02/05/18 at 07:00 Diphenhydramine HCl (Benadryl) 25 mg Q6H PRN IV itching Last administered on 02/20/18at 09:57; Admin Dose 25 MG; Start 02/19/18 at 14:00 Silver Sulfadiazine (Thermazene 1% 25 Gm) 1 applic DAILY TOP Last administered on 03/24/18 09:39; Admin Dose 1 APPLIC; Start 03/07/18 at 09:00 Zinc Sulfate (Zinc Sulfate) 220 mg DAILY PO Last administered on 03/25/18 08:49; Admin Dose 220 MG; Start 03/12/18 at 14:30 Ascorbic Acid (Vitamin C) 500 mg DAILY PO Last administered on 03/25/18 08:49; Admin Dose 500 MG; Start 03/12/18 at 14:30 Multivitamins Therapeutic (Theragran) 1 tab DAILY PO Last administered on 03/25/18at 08:49; Admin Dose 1 TAB; Start 03/12/18 at 14:30 Magnesium Hydroxide (Milk Of Mag) 30 ml DAILY PRN PO CONSTIPATION; Start 03/13/18 at 13:00 Amoxicillin (Amoxicillin) 500 mg Q8 PO Last administered on 03/25/18at 06:57; Admin Dose 500 MG; Start 03/23/18 at 22:00 Doxycycline Hyclate (Vibramycin) 100 mg BID PO Last administered on 03/25/18at 08:49; Admin Dose 100 MG; Start 03/23/18 at 21:00 Date/Time of Note Date/Time of Note DATE: 03/25/18 TIME: 13:44 DINA VICTOR NP Mar 25, 2018 13:45
[2018-03-25 15:33] VITALS: BP 118/67; PULSE 83; RESP 18
--- NOTE | 2018-03-25 16:11 | NUR ---
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 FAXED WOUND VAC ORDER TO [facility] , FOR FF UP TO [facility] RE [facility] TO TRANSFER PATIENT TO NOTIFY EX BHARGAV [phone] [employer] ASSISTANT [phone] Addendum: 03/25/18 at 1626 by GENOVEVA GONSALES Amended: Links added.
--- NOTE | 2018-03-25 19:47 | PN ---
Date/Time of Note Date/Time of Note DATE: 03/25/18 TIME: 19:46 Assessment/Plan VTE Prophylaxis Risk score (from Nsg)>0 risk: 3 SCD applied (from Nsg): Yes Pharmacological prophylaxis: heparin Lines/Catheters IV Catheter Type (from Nrsg): Saline Lock Urinary Cath still in place: Yes Reason Cath still needed: urinary retention Assessment/Plan Hospital Course General: Patient is laying in bed and answers questions appropriately, does not have feeling below the shoulders Mentation: Patient is alert and oriented 4, Head: Normocephalic atraumatic Eyes: EOMI, pupils reactive to light Neck: Supple, nontender, midline Respiratory: Clear to auscultation bilaterally Cardiovascular: regular rate, no obvious murmurs Gastrointestinal: non-tender to palpation, bowel sounds heard. Neurological: Moves upper extremities appropriately, no feeling or movement in the lower extremities Skin: No new skin lesions ASSESSMENT/PLAN: Very unfortunate 57-year-old male with a history of paraplegia secondary to spinal cord syndrome 6 months ago, who also resides in a residential, presented to the emergency room with worsening bilateral heel ulcers with foul-smelling drainage.... 1. Bilateral heel Decub ulcers without evidence of OM -s/p excisional debridement of bilateral heel decubitus wounds 01/26, 03/24. Wound vac applied -Left heel resolved -ulcers progressed on Rt heel => Repeat Bedside debridement and application of wound vac 03/04/18 -Antibiotic management per ID=>on orals for now -Wound care 2. Paraplegia secondary to spinal disorder and back surgery 6 months ago -Exact nature of disorder and surgery unclear -Continue baclofen 3. Depression -Continue home Cymbalta 4. Hypertension -Continue Coreg 5. Debility secondary to #2. -Patient resides in a residential. 6. Chronic anemia with mild iron deficiency. -s/p tx 02/03=>stable H&H -Continue oral iron replacement. 7. Unstageable pressure ulcers, sacral coccyx -S/p bedside debridement 02/13/18=> deteriorates further secondary to immobilization/noncompliance with nursing turning protocol. -Repeat debridement 03/10/2018 w/ application of wound VAC -WC: VANCO RESISTANT enterococcus 3+, coag negative staph 1+, alpha hemolytic strep 1+. -On appropriate antimicrobials -Continue wound care -Add vitamin C/zinc/Theragen. Continue protein supplements. -Dietary Consult 8. Constipation -Continue stool softeners. PRN laxative Prophylaxis:Lovenox/Pepcid Diet: Regular CODE STATUS: Full code Disposition: Wound care/antibiotics. Pending residential placement Subjective 24 Hr Interval Summary Free Text/Dictation No change to clinical status Exam/Review of Systems Vital Signs Vitals Vital Signs Date Temp Pulse Resp B/P (MAP) Pulse Ox O2 O2 Flow FiO2 Time Delivery Rate 03/25/18 97.8 83 18 118/67 99 15:33 (84) 03/23/18 Room Air 14:08 Intake and Output 03/24/18 03/24/18 03/25/18 1515:00 23:00 07:00 IntakeIntake Total 480 ml OutputOutput Total 800 ml 2000 ml BalanceBalance -800 ml -1520 ml Medications Medications Current Medications IV Flush (NS 3 ml) 3 ml PER PROTOCOL IV ; Start 01/25/18 at 15:30 Ondansetron HCl (Zofran Inj) 4 mg Q6H PRN IV NAUSEA AND/OR VOMITING; Start 01/25/18 at 15:30 Acetaminophen (Tylenol Tab) 650 mg Q6H PRN PO PAIN LEVEL 1-3 OR FEVER Last administered on 03/18/18 20:36; Admin Dose 650 MG; Start 01/25/18 at 15:30 Acetaminophen/ Hydrocodone Bitart (Matheson (5/325)) 1 tab Q6H PRN PO MODERATE PAIN LEVEL 4-6 Last administered on 03/25/18 14:17; Admin Dose 1 TAB; Start 01/25/18 at 15:30 Allopurinol (Zyloprim) 100 mg DAILY PO Last administered on 03/25/18 08:49; Admin Dose 100 MG; Start 01/26/18 at 09:00 Baclofen (Lioresal) 10 mg TID PO Last administered on 03/25/18 14:17; Admin Dose 10 MG; Start 01/25/18 at 21:00 Carvedilol (Coreg) 12.5 mg BID PO Last administered on 03/25/18 08:50; Admin Dose 12.5 MG; Start 01/25/18 at 21:00 Duloxetine HCl (Cymbalta) 30 mg DAILY PO Last administered on 03/25/18 08:49; Admin Dose 30 MG; Start 01/26/18 at 09:00 Famotidine (Pepcid) 20 mg BID PO Last administered on 03/25/18 08:49; Admin Dose 20 MG; Start 01/25/18 at 21:00 Folic Acid (Folic Acid) 1 mg DAILY PO Last administered on 03/25/18 08:49; Admin Dose 1 MG; Start 01/26/18 at 09:00 Gabapentin (Neurontin) 100 mg BID PO Last administered on 03/25/18 08:49; Admin Dose 100 MG; Start 01/25/18 at 21:00 Magnesium Oxide (Mag-Ox 400) 400 mg BID PO Last administered on 03/25/18 08:49; Admin Dose 400 MG; Start 01/25/18 at 21:00 Nystatin 1 applic BID TOP Last administered on 03/25/18 08:53; Admin Dose 1 APPLIC; Start 01/25/18 at 21:00 Pyridoxine HCl (Vitamin B6) 50 mg DAILY PO Last administered on 03/25/18 08:49; Admin Dose 50 MG; Start 01/26/18 at 09:00 Risperidone (Risperdal) 1 mg QHS PO Last administered on 03/24/18 20:50; Admin Dose 1 MG; Start 01/25/18 at 21:00 Zonisamide (Zonegran) 300 mg QHS PO Last administered on 03/24/18 21:00; Admin Dose 300 MG; Start 01/25/18 at 21:00 Eye Lubricant (Artificial Tears Oph) 1 drop Q8 BOTH EYES Last administered on 03/25/18 14:17; Admin Dose 1 DROP; Start 01/25/18 at 22:00 Miscellaneous Information (Pending [facility] Order For Wound Care) This patient woody... PRN PRN XX wound; Start 01/25/18 at 16:30 Vitamin A/Vitamin D (Vitamin A & D Oint) 1 applic BID TOP Last administered on 03/24/18 20:49; Admin Dose 1 APPLIC; Start 01/26/18 at 21:00 Docusate Sodium (Colace) 200 mg BID PO Last administered on 03/25/18 08:49; Admin Dose 200 MG; Start 01/27/18 at 21:00 Enoxaparin Sodium (Lovenox) 40 mg DAILY SC Last administered on 03/25/18 08:51; Admin Dose 40 MG; Start 01/28/18 at 09:00 Sodium Hypochlorite (Dakin'S (Dilute )) 1 applic DAILY IRR Last administered on 03/23/18at 10:05; Admin Dose 1 APPLIC; Start 01/27/18 at 18:30 Collagenase (Santyl) 1 applic DAILY TOP Last administered on 03/23/18 08:16; Admin Dose 1 APPLIC; Start 01/27/18 at 17:30 Collagenase (Santyl) 1 applic DAILY TOP Last administered on 03/23/18 08:17; Admin Dose 1 APPLIC; Start 02/04/18 at 09:00 Nitroglycerin (Nitroglycerin (Sl Tab) 0.4 Mg) 1 tab Q5M PRN SL ANGINA; Start 02/05/18 at 07:00 Diphenhydramine HCl (Benadryl) 25 mg Q6H PRN IV itching Last administered on 02/20/18at 09:57; Admin Dose 25 MG; Start 02/19/18 at 14:00 Silver Sulfadiazine (Thermazene 1% 25 Gm) 1 applic DAILY TOP Last administered on 03/24/18 09:39; Admin Dose 1 APPLIC; Start 03/07/18 at 09:00 Zinc Sulfate (Zinc Sulfate) 220 mg DAILY PO Last administered on 03/25/18 08:49; Admin Dose 220 MG; Start 03/12/18 at 14:30 Ascorbic Acid (Vitamin C) 500 mg DAILY PO Last administered on 03/25/18 08:49; Admin Dose 500 MG; Start 03/12/18 at 14:30 Multivitamins Therapeutic (Theragran) 1 tab DAILY PO Last administered on 03/25/18 08:49; Admin Dose 1 TAB; Start 03/12/18 at 14:30 Magnesium Hydroxide (Milk Of Mag) 30 ml DAILY PRN PO CONSTIPATION; Start 03/13/18 at 13:00 Amoxicillin (Amoxicillin) 500 mg Q8 PO Last administered on 03/25/18 14:17; Admin Dose 500 MG; Start 03/23/18 at 22:00 Doxycycline Hyclate (Vibramycin) 100 mg BID PO Last administered on 03/25/18 08:49; Admin Dose 100 MG; Start 03/23/18 at 21:00 ANGELI MESA MD Mar 25, 2018 19:47
[2018-03-25 20:00] VITALS: BP 115/67; PULSE 108; RESP 19
[2018-03-25] MEDS: RISPERIDONE 1 MG TAB PO SCH (20:16)
[2018-03-25] MEDS: ZONISAMIDE 100 MG CAP PO SCH (20:17)
[2018-03-26 02:00] VITALS: BP 124/65; PULSE 100; RESP 18
[2018-03-26] MEDS: HYDROCODONE/APAP (5/325) TAB PO PRN ×4 (03:16→21:49)
--- NOTE | 2018-03-26 03:49 | NUR ---
191 Pt received aaox4, respirations regular and even, no s/s of distress. Pt oriented to oncoming shift supervisor rn nurse and [facility] safety protocol including hourly rounding and an active bed alarm. Pt verbalized understanding. 2014 Scheduled medications administered whole with water w/o difficulty. Pt voiced complains of 8/10 shoulder and neck pain, requests norco. Alex administered as per order. Nursing will continue to monitor. 2200 Pt alseep, bed in lowest position, bed alarm active, call molina within reach. Wound Vac functioning appropriately. 2300 Scheduled medications administered as ordered. 0100 Pt asleep, Nursing will continue to monitor. 0320 Pt request Alex for shoulder/neck pain 10/10, administered as ordered. Pt denies further needs at this time. Addendum: 03/26/18 at 0635 by JAZ PALMA RN 0630 No significant changes noted throughout the shift. Nursing will continue to monitor and endorse pt to morning shift to ensure continuity of care.
[2018-03-26] MEDS: AMOXICILLIN 500 MG CAP PO SCH ×3 (06:54→21:48)
[2018-03-26] MEDS: ARTIFICIAL TEARS 15 ML OPH BOTH EYES SCH ×3 (06:55→21:48)
[2018-03-26 08:00] VITALS: BP 106/67; PULSE 91; RESP 19
[2018-03-26] MEDS: MULTIVITAMINS THERAPEUTIC TAB PO SCH (08:32)
[2018-03-26] MEDS: ZINC SULFATE 220 MG CAP PO SCH (08:32)
[2018-03-26] MEDS: DOCUSATE SODIUM 100 MG CAP PO SCH ×2 (08:32→20:11)
[2018-03-26] MEDS: DULOXETINE 30 MG CAP DR PO SCH (08:32)
[2018-03-26] MEDS: DOXYCYCLINE 100 MG TAB PO SCH ×2 (08:32→20:14)
[2018-03-26] MEDS: FAMOTIDINE 20 MG TAB PO SCH ×2 (08:32→20:12)
[2018-03-26] MEDS: FOLIC ACID 1 MG TAB PO SCH (08:32)
[2018-03-26] MEDS: PYRIDOXINE 50 MG TAB PO SCH (08:32)
[2018-03-26] MEDS: MAGNESIUM OXIDE 400 MG TAB PO SCH ×2 (08:32→20:12)
[2018-03-26] MEDS: ASCORBIC ACID 500 MG TAB PO SCH (08:32)
[2018-03-26] MEDS: ALLOPURINOL 100 MG TAB PO SCH (08:32)
[2018-03-26] MEDS: BACLOFEN 10 MG TAB PO SCH ×3 (08:32→20:12)
[2018-03-26] MEDS: GABAPENTIN 100 MG CAP PO SCH ×2 (08:32→20:12)
[2018-03-26] MEDS: SODIUM HYPOCHLORITE (1/40) 1 APPLIC BTL IRR SCH (08:33)
[2018-03-26] MEDS: ENOXAPARIN 40 MG/0.4 ML SYG SC SCH (08:33)
[2018-03-26] MEDS: COLLAGENASE 5 GM (UD JAR) TOP SCH ×2 (08:35)
[2018-03-26] MEDS: SILVER SULFADIAZINE 1% 25 GM CR TOP SCH (08:35)
[2018-03-26] MEDS: VITAMIN A & D 5 GM OINT PACKET TOP SCH ×2 (08:35→21:00)
[2018-03-26] MEDS: NYSTATIN 15 GM POWDER BTL TOP SCH ×2 (08:35→21:00)
[2018-03-26] MEDS: BALSAM PERU/CASTOR OIL 60 GM TUBE TOP SCH (08:35)
--- NOTE | 2018-03-26 10:42 | PN ---
Date/Time of Note Date/Time of Note DATE: 03/26/18 TIME: 10:40 Assessment/Plan Lines/Catheters IV Catheter Type (from [facility]): Saline Lock Benavidez in Place (from [facility]): Yes Assessment/Plan Chief Complaint/Hosp Course 1. Stage 4 necrotic wound: s/p repeat excisional debridement 03/19/18, bone sample sent for path; status post I&D&D of right thigh blister; bone path noted: gangrenous necrosis; Debridement today -cont local care> Santyl to sacrum > consider follow ups at wound care clinic near where he will be discharged> wound VAC to sacrum-nursing to track tube in order to prevent equipment related skin damage> ok to be discharged without woundvac if needed -Continue Silver ointment to right thigh blister (S/P I&D)> almost healed -frequent turning and [id number] with patient importance of frequent turning however per nursing patient always returns to his back after being repositioned-once again reinforced importance of offloading -low air loss mattress -vitamin c -short term zinc -optimize nutrition -skin protection against devices -further debridement prn 2. Bilateral lower extremity ulcers: with wound vac -As above -Per podiatry 3. Hypochromic microcytic anemia: -Monitor and transfuse as needed 4. Depression: -Psychiatric optimization 5. Paraplegia -Supportive 6. Hypertension -nutrition and medication optimization Thank you. Patient seen and examined in collaboration with Dr. Brian Angulo. Subjective 24 Hr Interval Summary Feels well. Debridement today. No fevers, chills, sob, congested cough, cp, palpitations, woody, dizziness, n/v/d/dysuria. Exam/Review of Systems Vital Signs Vitals Vital Signs Date Temp Pulse Resp B/P (MAP) Pulse Ox O2 O2 Flow FiO2 Time Delivery Rate 03/26/18 98.0 91 19 106/67 96 08:00 (80) 03/23/18 Room Air 14:08 Intake and Output 03/25/18 03/25/18 03/26/18 1515:00 23:00 07:00 IntakeIntake Total 480 ml 240 ml 200 ml OutputOutput Total 750 ml 800 ml BalanceBalance 480 ml -510 ml -600 ml Exam Free Text/Dictation Constitutional: alert, oriented Psych: nl mood/affect, anxiety (Minimal) Head: normocephalic, atraumatic Eyes: nl conjunctiva, EOMI, nl sclera ENMT: nl external ears & nose, nl lips & teeth, mucosa pink and moist Neck: supple, non-tender Respiratory: normal air movement; No congested cough Cardiovascular: regular rate and rhythm; No edema Gastrointestinal: soft, non-tender; No distended Musculoskeletal: nl extremities to inspection; No nl gait and stance Extremities: normal pulses; No edema Neurological: nl mental status, nl speech Skin: nl turgor, Sacral wound: no periwound erythema, minimal drainage (serosanguineous), slough, wound vac; wound vac to lower leg; right thigh skin blister (healing well) FERNANDO DÍAZ NP Mar 26, 2018 10:42
--- NOTE | 2018-03-26 10:45 | OPR ---
Date/Time of Note Date/Time of Note DATE: 03/26/18 TIME: 10:42 Operative Report Free Text/Dictation Procedure Date: Mar 26, 2018 Preoperative Diagnosis Sacral stage IV decubitus ulcer with slough and necrotic tissue, 6.0 x 6 centimeters Postoperative Diagnosis Sacral stage IV decubitus ulcer with slough and necrotic tissue, 6 x 6 cm Operation/Procedure Performed Excisional debridement of sacral skin, subcutaneous, muscle/fascia, bone 6 x 6 cm Application of wound vac Surgeon see signature line Police Shift Commander n/a Anesthesia Type: other (none) Estimated Blood Loss: minimal Transfusion none Specimen bone Grafts/Implants none Complications none Procedure Description Risks, benefits, alternatives reviewed and agreed upon with patient. Patient placed in his own bed in right lateral decubitus. Area was prepped and draped in sterile fashion. Timeout was performed. Using scalpel and curette, the necrotic tissue and debris of the sacral skin, subcutaneous, muscle/fascia and bone were debrided to healthier edges. Wound made hemostatic using direct applied pressure and silver nitrate. Area was irrigated with dakins and wound vac using silver foam was placed to suction. FERNANDO DÍAZ NP Mar 26, 2018 10:45
--- NOTE | 2018-03-26 13:22 | PN ---
Date/Time of Note Date/Time of Note DATE: 03/26/18 TIME: 13:22 Assessment/Plan VTE Prophylaxis Risk score (from Nsg)>0 risk: 4 SCD applied (from Nsg): Yes Pharmacological prophylaxis: heparin Lines/Catheters IV Catheter Type (from Nrsg): Saline Lock Urinary Cath still in place: Yes Reason Cath still needed: urinary retention Assessment/Plan Hospital Course General: Patient is laying in bed and answers questions appropriately, does not have feeling below the shoulders Mentation: Patient is alert and oriented 4, Head: Normocephalic atraumatic Eyes: EOMI, pupils reactive to light Neck: Supple, nontender, midline Respiratory: Clear to auscultation bilaterally Cardiovascular: regular rate, no obvious murmurs Gastrointestinal: non-tender to palpation, bowel sounds heard. Neurological: Moves upper extremities appropriately, no feeling or movement in the lower extremities Skin: No new skin lesions ASSESSMENT/PLAN: Very unfortunate 57-year-old male with a history of paraplegia secondary to spinal cord syndrome 6 months ago, who also resides in a senior care, presented to the emergency room with worsening bilateral heel ulcers with foul-smelling drainage.... 1. Bilateral heel Decub ulcers without evidence of OM -s/p excisional debridement of bilateral heel decubitus wounds 01/26, 03/24. Wound vac applied -Left heel resolved -ulcers progressed on Rt heel => Repeat Bedside debridement and application of wound vac 03/04/18 -Antibiotic management per ID=>on orals for now -Wound care 2. Paraplegia secondary to spinal disorder and back surgery 6 months ago -Exact nature of disorder and surgery unclear -Continue baclofen 3. Depression -Continue home Cymbalta 4. Hypertension -Continue Coreg 5. Debility secondary to #2. -Patient resides in a senior care. 6. Chronic anemia with mild iron deficiency. -s/p tx 02/03=>stable H&H -Continue oral iron replacement. 7. Unstageable pressure ulcers, sacral coccyx -S/p bedside debridement 02/13/18=> deteriorates further secondary to immobilization/noncompliance with nursing turning protocol. -Repeat debridement 03/10/2018 w/ application of wound VAC -WC: VANCO RESISTANT enterococcus 3+, coag negative staph 1+, alpha hemolytic strep 1+. -On appropriate antimicrobials -Continue wound care -Add vitamin C/zinc/Theragen. Continue protein supplements. -Dietary Consult 8. Constipation -Continue stool softeners. PRN laxative Prophylaxis:Lovenox/Pepcid Diet: Regular CODE STATUS: Full code Disposition: Wound care/antibiotics. Pending senior care placement Subjective 24 Hr Interval Summary Free Text/Dictation No change to clinical status Exam/Review of Systems Exam Vitals Vital Signs Date Temp Pulse Resp B/P (MAP) Pulse Ox O2 O2 Flow FiO2 Time Delivery Rate 03/26/18 98.0 91 19 106/67 96 08:00 (80) 03/23/18 Room Air 14:08 Intake and Output 03/25/18 03/25/18 03/26/18 1515:00 23:00 07:00 IntakeIntake Total 480 ml 240 ml 200 ml OutputOutput Total 750 ml 800 ml BalanceBalance 480 ml -510 ml -600 ml ANGELI MESA MD Mar 26, 2018 13:22
[2018-03-26 14:06] VITALS: BP 99/61; PULSE 79; RESP 18
--- NOTE | 2018-03-26 14:27 | NUR ---
DC PLANS UPDATE: ACCEPTED AT [facility], [address]ESS [id number] [id number] [employer] [phone], [phone] , TEL # OF [phone] , SPOKE TO ERNESTO SUZETTE STILL WAITING ROXANE. LEFT MESSAGE TO CHARLES [phone] RE PROVIDING ROXANE TO [place]. I NOTIFIED HER 03/25/18 RE ACCEPTANCE @ [place] AND NEED FOR ROXANE/ PER DIONISIO HE GOT AUTHORIZATION FRO [facility] BUT STILL NEEDS ROAXNE. WILL FF UP. Addendum: 03/26/18 at 1446 by GENOVEVA GONSALES CM Amended: Links added.
--- NOTE | 2018-03-26 15:46 | CONS ---
Assessment/Plan Assessment/Plan Hospital Course (Demo Recall) Alert, feels good Repeat cultures of the right foot grew VRE susceptible to ampicillin, coag negative staph and oxacillin sensitive staph aureus both susceptible to doxycycline Antimicrobials: Amoxicillin, doxycycline Physical examination: Well-nourished well-developed middle-aged man who is awake in no distress. Head atraumatic normocephalic sclera nonicteric vehicle mucosa dry neck is supple chest rise symmetrical breath sounds diminished bases heart S1-S2. Abdomen soft bowel sounds present. Extremities without cyanosis. Assessment: 1. Right foot ulceration status post debridement down to muscle 2. Stage III sacral wound, s/p multiple debridement 3. Paraplegia 4. Hypertension 5. Diabetes Plan: Patient remains stable, continue abx, wound care per surgical and pod iatry rec-s. Consultation Date/Type/Reason Admit Date/Time Jan 26, 2018 at 08:29 Initial Consult Date 02/12/18 Type of Consult id Requesting Provider: LIVIA ADAME NP Date/Time of Note DATE: 03/26/18 TIME: 15:45 Exam/Review of Systems Exam Vitals Vital Signs Date Temp Pulse Resp B/P (MAP) Pulse Ox O2 O2 Flow FiO2 Time Delivery Rate 03/26/18 98.0 79 18 99/61 (74) 98 Room Air 14:06 Intake and Output 03/25/18 03/25/18 03/26/18 1414:59 22:59 06:59 IntakeIntake Total 480 ml 240 ml 200 ml OutputOutput Total 750 ml 800 ml BalanceBalance 480 ml -510 ml -600 ml DINA VICTOR SENIOR VALIDATION ENGINEER Mar 26, 2018 15:46
[2018-03-26 20:00] VITALS: BP 108/56; PULSE 85; RESP 19
[2018-03-26] MEDS: ZONISAMIDE 100 MG CAP PO SCH (20:11)
[2018-03-26] MEDS: RISPERIDONE 1 MG TAB PO SCH (20:14)
--- NOTE | 2018-03-27 00:47 | NUR ---
1914 Pt received aaox4, respirations regular and even, no s/s of distress. Pt oriented to oncoming panel edge sealer nurse and [facility] safety protocol including hourly rounding and an active bed alarm. Pt verbalized understanding. Approx. 2029 Scheduled medications administered whole with water w/o difficulty. Coreg held due to BP 106/60 P 78 which is under acceptable perameters. Dr Rizvi contacted, waiting for further orders. 2129 Dr Rizvi stated it is okay to administer coreg, pt refused, BP unchanged. 2139 Pt voiced complains of 8/10 shoulder and neck pain, requests norco. Hope administered as per order. 0000 Pt resting comfortably in bed, eyes closed, respirations regular and even. Nursing will continue to monitor. Addendum: 03/27/18 at 0755 by JAZ PALMA RN 599 Right heel wound vac changed using black foam, as per MD to nurse communication -"Okay to change right heel wound vac 03/27." Photo taken, as per Dr. Adan request if not at bedside. All dressing changes completed and documented under the integumentary assessment intervention. Nursing will continue to monitor and endorse to morning shift to ensure pt safety and continuity of care.
[2018-03-27 02:00] VITALS: BP 110/61; PULSE 83; RESP 18
[2018-03-27] MEDS: HYDROCODONE/APAP (5/325) TAB PO PRN ×3 (05:07→18:49)
[2018-03-27] MEDS: AMOXICILLIN 500 MG CAP PO SCH ×3 (05:07→21:01)
[2018-03-27] MEDS: ARTIFICIAL TEARS 15 ML OPH BOTH EYES SCH ×3 (05:08→21:02)
[2018-03-27 08:00] VITALS: BP 96/57; PULSE 78; RESP 18
[2018-03-27] MEDS: BALSAM PERU/CASTOR OIL 60 GM TUBE TOP SCH (09:00)
[2018-03-27] MEDS: COLLAGENASE 5 GM (UD JAR) TOP SCH ×2 (09:00)
[2018-03-27] MEDS: VITAMIN A & D 5 GM OINT PACKET TOP SCH ×2 (09:00→21:02)
[2018-03-27] MEDS: SODIUM HYPOCHLORITE (1/40) 1 APPLIC BTL IRR SCH (09:00)
[2018-03-27] MEDS: ENOXAPARIN 40 MG/0.4 ML SYG SC SCH (09:20)
[2018-03-27] MEDS: PYRIDOXINE 50 MG TAB PO SCH (09:21)
[2018-03-27] MEDS: FOLIC ACID 1 MG TAB PO SCH (09:21)
[2018-03-27] MEDS: BACLOFEN 10 MG TAB PO SCH ×3 (09:21→21:05)
[2018-03-27] MEDS: ZINC SULFATE 220 MG CAP PO SCH (09:21)
[2018-03-27] MEDS: MULTIVITAMINS THERAPEUTIC TAB PO SCH (09:21)
[2018-03-27] MEDS: FAMOTIDINE 20 MG TAB PO SCH ×2 (09:21→21:01)
[2018-03-27] MEDS: ALLOPURINOL 100 MG TAB PO SCH (09:21)
[2018-03-27] MEDS: DOXYCYCLINE 100 MG TAB PO SCH ×2 (09:21→21:01)
[2018-03-27] MEDS: DULOXETINE 30 MG CAP DR PO SCH (09:21)
[2018-03-27] MEDS: MAGNESIUM OXIDE 400 MG TAB PO SCH ×2 (09:21→21:01)
[2018-03-27] MEDS: GABAPENTIN 100 MG CAP PO SCH ×2 (09:21→21:01)
[2018-03-27] MEDS: DOCUSATE SODIUM 100 MG CAP PO SCH ×2 (09:22→21:01)
[2018-03-27] MEDS: ASCORBIC ACID 500 MG TAB PO SCH (09:22)
[2018-03-27] MEDS: SILVER SULFADIAZINE 1% 25 GM CR TOP SCH ×2 (09:37→12:58)
[2018-03-27] MEDS: NYSTATIN 15 GM POWDER BTL TOP SCH ×2 (09:37→21:07)
--- NOTE | 2018-03-27 09:44 | NUR ---
WOUND VAC CONSULT: TENNIS PLAYER Martha Garcia order to apply Silver black foam to sacrococcyx wound every 3 days. Discussed with Primary RN, Phyllis. TENNIS PLAYER applied Silver black foam dressing yesterday. Next dressing change Friday. Right heel wound VAC dressing change this morning per RN. Delilah Ferreira, BSN RN CWOCN
--- NOTE | 2018-03-27 10:46 | PN ---
Date/Time of Note Date/Time of Note DATE: 03/27/18 TIME: 10:44 Assessment/Plan Lines/Catheters IV Catheter Type (from [facility]): Saline Lock Benavidez in Place (from [facility]): Yes Assessment/Plan Chief Complaint/Hosp Course 1. Stage 4 necrotic wound: s/p repeat excisional debridement 03/26/18, bone sample sent for path; status post I&D&D of right thigh blister; bone path noted: gangrenous necrosis; Debridement today -cont local care> Santyl to sacrum > consider follow ups at wound care clinic near where he will be discharged> wound VAC to sacrum-nursing to track tube in order to prevent equipment related skin damage> ok to be discharged without woundvac if needed -Continue Silver ointment to right thigh blister (S/P I&D)> healed -frequent turning and [id number]-zsmjuufyq with patient importance of frequent turning however per nursing patient always returns to his back after being rep ositioned-once again reinforced importance of offloading -low air loss mattress -vitamin c -short term zinc -optimize nutrition -skin protection against devices -further debridement prn 2. Bilateral lower extremity ulcers: with wound vac -As above -Per podiatry 3. Hypochromic microcytic anemia: -Monitor and transfuse as needed 4. Depression: -Psychiatric optimization 5. Paraplegia -Supportive 6. Hypertension -nutrition and medication optimization Thank you. Patient seen and examined in collaboration with Dr. Brian Angulo. Subjective 24 Hr Interval Summary Feels well. No fevers, chills, sob, congested cough, cp, palpitations, woody, dizziness, n/v/d/dysuria. Exam/Review of Systems Vital Signs Vitals Vital Signs Date Temp Pulse Resp B/P (MAP) Pulse Ox O2 O2 Flow FiO2 Time Delivery Rate 03/27/18 98.2 83 18 110/61 97 02:00 (77) 03/26/18 Room Air 14:06 Intake and Output 03/26/18 03/26/18 03/27/18 1515:00 23:00 07:00 IntakeIntake Total 1100 ml 900 ml OutputOutput Total 1400 ml 1700 ml BalanceBalance -300 ml -800 ml Exam Free Text/Dictation Constitutional: alert, oriented Psych: nl mood/affect, anxiety (Minimal) Head: normocephalic, atraumatic Eyes: nl conjunctiva, EOMI, nl sclera ENMT: nl external ears & nose, nl lips & teeth, mucosa pink and moist Neck: supple, non-tender Respiratory: normal air movement; No congested cough Cardiovascular: regular rate and rhythm; No edema Gastrointestinal: soft, non-tender; No distended Musculoskeletal: nl extremities to inspection; No nl gait and stance Extremities: normal pulses; No edema Neurological: nl mental status, nl speech Skin: nl turgor, Sacral wound: no periwound erythema, minimal drainage (serosanguineous), wound vac; wound vac to lower leg; right thigh skin blister (healed) FERNANDO DÍAZ NP Mar 27, 2018 10:46
--- NOTE | 2018-03-27 11:47 | CONS ---
Assessment/Plan Assessment/Plan Hospital Course (Demo Recall) No acute changes, all noted, looks comfortable, afebrile Repeat cultures of the right foot grew VRE susceptible to ampicillin, coag negative staph and oxacillin sensitive staph aureus both susceptible to doxycycline Antimicrobials: Amoxicillin, doxycycline Physical examination: Well-nourished well-developed middle-aged man who is awake in no distress. Head atraumatic normocephalic sclera nonicteric vehicle mucosa dry neck is supple chest rise symmetrical breath sounds diminished bases heart S1-S2. Abdomen soft bowel sounds present. Extremities without cyanosis. Assessment: 1. Right foot ulceration status post multiple debridement down to muscle 2. Stage III sacral wound, s/p multiple debridement 3. Paraplegia 4. Hypertension 5. Diabetes Plan: Patient remains stable, continue abx, wound care per surgical and podiatry rec-s, wound vac. Consultation Date/Type/Reason Admit Date/Time Jan 26, 2018 at 08:29 Initial Consult Date 02/12/18 Type of Consult id Requesting Provider: LIVIA ADAME NP Date/Time of Note DATE: 03/27/18 TIME: 11:46 Exam/Review of Systems Exam Vitals Vital Signs Date Temp Pulse Resp B/P (MAP) Pulse Ox O2 O2 Flow FiO2 Time Delivery Rate 03/27/18 98.2 83 18 110/61 97 02:00 (77) 03/26/18 Room Air 14:06 Intake and Output 03/26/18 03/26/18 03/27/18 1515:00 23:00 07:00 IntakeIntake Total 1100 ml 900 ml OutputOutput Total 1400 ml 1700 ml BalanceBalance -300 ml -800 ml DINA VICTOR RESIDENT HALL DIRECTOR Mar 27, 2018 11:47
--- NOTE | 2018-03-27 13:25 | NUR ---
PT note Therapy day number 22 Subjective Denies pain Pain Scale NUMERIC Pain Intensity 0 (0-10) Patient Stated Goal for Pain Relief 0 (0-10) Pain Level Comment no reports of pain Exercise Assessment Label Bilat Lower Extremity Exercise Type Passive ROM Additional Exercise Comments manaul stretching, B heel cords, B hamstring, tone examination Exercise Assessment Label Bilat Upper Extremity Exercise Type Active ROM Additional Exercise Comments scap squeezes, chin tucks, manual pec stretch Exercise Start Time 13:25 Exercise End Time 13:55 Total Exercise Time 30 min (8-127) Safety Judgement Good Activity Tolerance Fair Equipment Present Drains Additional Equipment Present 2 wound vac, mathur Post Treatment Pain Intensity 0 0-10 Total Treament Time 30 min (8-127) Total Minutes 30 Total Units 2 PT Technical Record Comment S: Patient in bed, agreeable to PT intervention. Pt cleared for activity per RN. O: Performed ther-ex and manual stretching throughout, patient educated on positioning and importance of lower cervical extension and maintaining UE ROM and muscle endurance. Patient back in bed following therapy intervention with call lneeds met and call light within reach. MD present for portion of treatment intervention A: Patient presents with increased BLE tone with subsequent spasticity. Patient receptive to PT education and motivated to attempt OOB transfer next treatment. Will require 2P assist for safety. Patient presents with adequate strength in BUE however muscle endurance limited as inconsistant contraction observed with prolonged hold. Patient could continue to benefit from OHFT to assist with bed mobility P: next treatment: attempt OOB, 2P assist for lines and safety
[2018-03-27 14:00] VITALS: BP 114/67; PULSE 80; RESP 18
--- NOTE | 2018-03-27 14:08 | PN ---
Date/Time of Note Date/Time of Note DATE: 03/27/18 TIME: 14:08 Assessment/Plan VTE Prophylaxis Risk score (from Nsg)>0 risk: 5 SCD applied (from Nsg): Yes Pharmacological prophylaxis: heparin Lines/Catheters IV Catheter Type (from Nrsg): Saline Lock Urinary Cath still in place: Yes Reason Cath still needed: urinary retention Assessment/Plan Hospital Course General: Patient is laying in bed and answers questions appropriately, does not have feeling below the shoulders Mentation: Patient is alert and oriented 4, Head: Normocephalic atraumatic Eyes: EOMI, pupils reactive to light Neck: Supple, nontender, midline Respiratory: Clear to auscultation bilaterally Cardiovascular: regular rate, no obvious murmurs Gastrointestinal: non-tender to palpation, bowel sounds heard. Neurological: Moves upper extremities appropriately, no feeling or movement in the lower extremities Skin: No new skin lesions ASSESSMENT/PLAN: Very unfortunate 57-year-old male with a history of paraplegia secondary to spinal cord syndrome 6 months ago, who also resides in a jail, presented to the emergency room with worsening bilateral heel ulcers with foul-smelling drainage.... 1. Bilateral heel Decub ulcers without evidence of OM -s/p excisional debridement of bilateral heel decubitus wounds 01/26, 03/24. Wound vac applied -Left heel resolved -ulcers progressed on Rt heel => Repeat Bedside debridement and application of wound vac 03/04/18 -Antibiotic management per ID=>on orals for now -Wound care 2. Paraplegia secondary to spinal disorder and back surgery 6 months ago -Exact nature of disorder and surgery unclear -Continue baclofen 3. Depression -Continue home Cymbalta 4. Hypertension -Continue Coreg 5. Debility secondary to #2. -Patient resides in a jail. 6. Chronic anemia with mild iron deficiency. -s/p tx 02/03=>stable H&H -Continue oral iron replacement. 7. Unstageable pressure ulcers, sacral coccyx -S/p bedside debridement 02/13/18=> deteriorates further secondary to immobilization/noncompliance with nursing turning protocol. -Repeat debridement 03/10/2018 w/ application of wound VAC -WC: VANCO RESISTANT enterococcus 3+, coag negative staph 1+, alpha hemolytic strep 1+. -On appropriate antimicrobials -Continue wound care -Add vitamin C/zinc/Theragen. Continue protein supplements. -Dietary Consult 8. Constipation -Continue stool softeners. PRN laxative Prophylaxis:Lovenox/Pepcid Diet: Regular CODE STATUS: Full code Disposition: Wound care/antibiotics. Pending jail placement Subjective 24 Hr Interval Summary Free Text/Dictation No change to clinical status Awaiting placement Exam/Review of Systems Exam Vitals Vital Signs Date Temp Pulse Resp B/P (MAP) Pulse Ox O2 O2 Flow FiO2 Time Delivery Rate 03/27/18 98.2 78 18 96/57 (70) 97 Room Air 08:00 Intake and Output 03/26/18 03/26/18 03/27/18 1515:00 23:00 07:00 IntakeIntake Total 1100 ml 900 ml OutputOutput Total 1400 ml 1700 ml BalanceBalance -300 ml -800 ml ANGELI MESA MD Mar 27, 2018 14:08
--- NOTE | 2018-03-27 16:13 | NUR ---
Discharge arrangements; Followed up with Shannon from [facility] about letter of agreement with [facility] . Upon call back Shannon has sent both authorization and ROXANE on Friday, if [place] needed any further paperwork would need to go through Mario Bee in [place]. She called back again and confirmed with Mario that all paperwork has been sent over to [facility]. Followed up with [facility] and able to accept Patient tomorrow with room 201A reserved. Also can give report to Delilah Philip tomorrow, CM Team will follow and arrange transportation with [facility] option#2.
--- NOTE | 2018-03-27 16:30 | PN ---
Date/Time of Note Date/Time of Note DATE: 03/27/18 TIME: 16:30 Assessment/Plan VTE Prophylaxis Risk score (from Nsg)>0 risk: 5 SCD applied (from Nsg): Yes Pharmacological prophylaxis: heparin Lines/Catheters IV Catheter Type (from Nrs): Saline Lock Assessment/Plan Hospital Course 57 y/o paraplegic M patient presents to the floor with bilateral pressure heel wounds. Patient states they have been present for over two weeks. Patient states he was at another facility and his ex- also helps with the dressing changes and noticed worsening signs of the wound with foul smell. Patient denies f/c/n/v no chest pain or shortness of breath. Assessment/Plan 1) B/l decubitus heel ulcers right stage 2, left heel resolved 2) Right foot and ankle partial thickness wounds 3) Left decubitus ankle ulcer stage 2 4) Paraplegia b/l LE 5) Peripheral neuropathy 6) HTN 7) Depression Plan: Continue with physical theraphy sessions. Continue with wound VAC to the right heel. Right foot wound cultures showing e. cloacae and enterococcus species. Continue with daily dressing changes to the other portions of the foot. Wound care orders are in place. Emphasized to nurse strict offloading of heels with pillows and offloading soft boots. X-rays reviewed and did not appreciate sign of osteomyelitis. Continue with IV abx as per recommendations. Non-invasive studies ordered: No focal hemodynamically significant stenosis in either lower extremity. Patient may follow up in outpatient [facility] wound clinic Subjective 24 Hr Interval Summary Free Text/Dictation No acute events overnight. Exam/Review of Systems Exam Vitals Vital Signs Date Temp Pulse Resp B/P (MAP) Pulse Ox O2 O2 Flow FiO2 Time Delivery Rate 03/27/18 98.0 80 18 114/67 0 Room Air 14:00 (83) Intake and Output 03/26/18 03/26/18 03/27/18 1414:59 22:59 06:59 IntakeIntake Total 1100 ml 900 ml OutputOutput Total 1400 ml 1700 ml BalanceBalance -300 ml -800 ml Exam wound VAC operational with dressings clean, dry and intact. Serosanguinous drainage output. No proximal streaking, no strikethrough, no foul odor. Medications Medication Current Medications IV Flush (NS 3 ml) 3 ml PER PROTOCOL IV ; Start 01/25/18 at 15:30 Ondansetron HCl (Zofran Inj) 4 mg Q6H PRN IV NAUSEA AND/OR VOMITING; Start 01/25/18 at 15:30 Acetaminophen (Tylenol Tab) 650 mg Q6H PRN PO PAIN LEVEL 1-3 OR FEVER Last administered on 03/18/18 20:36; Admin Dose 650 MG; Start 01/25/18 at 15:30 Acetaminophen/ Hydrocodone Bitart (Foster (5/325)) 1 tab Q6H PRN PO MODERATE PAIN LEVEL 4-6 Last administered on 03/27/18 11:56; Admin Dose 1 TAB; Start 01/25/18 at 15:30 Allopurinol (Zyloprim) 100 mg DAILY PO Last administered on 03/27/18 09:21; Admin Dose 100 MG; Start 01/26/18 at 09:00 Baclofen (Lioresal) 10 mg TID PO Last administered on 03/27/18 13:15; Admin Dose 10 MG; Start 01/25/18 at 21:00 Carvedilol (Coreg) 12.5 mg BID PO Last administered on 03/26/18 08:33; Admin Dose 12.5 MG; Start 01/25/18 at 21:00 Duloxetine HCl (Cymbalta) 30 mg DAILY PO Last administered on 03/27/18 09:21; Admin Dose 30 MG; Start 01/26/18 at 09:00 Famotidine (Pepcid) 20 mg BID PO Last administered on 03/27/18 09:21; Admin Dose 20 MG; Start 01/25/18 at 21:00 Folic Acid (Folic Acid) 1 mg DAILY PO Last administered on 03/27/18 09:21; Admin Dose 1 MG; Start 01/26/18 at 09:00 Gabapentin (Neurontin) 100 mg BID PO Last administered on 03/27/18 09:21; Admin Dose 100 MG; Start 01/25/18 at 21:00 Magnesium Oxide (Mag-Ox 400) 400 mg BID PO Last administered on 03/27/18 09:21; Admin Dose 400 MG; Start 01/25/18 at 21:00 Nystatin 1 applic BID TOP Last administered on 03/27/18 09:37; Admin Dose 1 APPLIC; Start 01/25/18 at 21:00 Pyridoxine HCl (Vitamin B6) 50 mg DAILY PO Last administered on 03/27/18 09:21; Admin Dose 50 MG; Start 01/26/18 at 09:00 Risperidone (Risperdal) 1 mg QHS PO Last administered on 03/26/18 20:14; Admin Dose 1 MG; Start 01/25/18 at 21:00 Zonisamide (Zonegran) 300 mg QHS PO Last administered on 03/26/18 20:11; Admin Dose 300 MG; Start 01/25/18 at 21:00 Eye Lubricant (Artificial Tears Oph) 1 drop Q8 BOTH EYES Last administered on 03/27/18 13:16; Admin Dose 1 DROP; Start 01/25/18 at 22:00 Miscellaneous Information (Pending Santyl Order For Wound Care) This patient woody... PRN PRN XX wound; Start 01/25/18 at 16:30 Vitamin A/Vitamin D (Vitamin A & D Oint) 1 applic BID TOP Last administered on 03/26/18 08:35; Admin Dose 1 APPLIC; Start 01/26/18 at 21:00 Docusate Sodium (Colace) 200 mg BID PO Last administered on 03/27/18 09:22; Admin Dose 200 MG; Start 01/27/18 at 21:00 Enoxaparin Sodium (Lovenox) 40 mg DAILY SC Last administered on 03/27/18 09:20; Admin Dose 40 MG; Start 01/28/18 at 09:00 Sodium Hypochlorite (Dakin'S (Dilute 1/40)) 1 applic DAILY IRR Last administered on 03/23/18 10:05; Admin Dose 1 APPLIC; Start 01/27/18 at 18:30 Collagenase (Santyl) 1 applic DAILY TOP Last administered on 03/26/18 08:35; Admin Dose 1 APPLIC; Start 01/27/18 at 17:30 Collagenase (Santyl) 1 applic DAILY TOP Last administered on 03/26/18 08:35; Admin Dose 1 APPLIC; Start 02/04/18 at 09:00 Nitroglycerin (Nitroglycerin (Sl Tab) 0.4 Mg) 1 tab Q5M PRN SL ANGINA; Start 02/05/18 at 07:00 Diphenhydramine HCl (Benadryl) 25 mg Q6H PRN IV itching Last administered on 02/20/18at 09:57; Admin Dose 25 MG; Start 02/19/18 at 14:00 Silver Sulfadiazine (Thermazene 1% 25 Gm) 1 applic DAILY TOP Last administered on 03/26/18 08:35; Admin Dose 1 APPLIC; Start 03/07/18 at 09:00 Zinc Sulfate (Zinc Sulfate) 220 mg DAILY PO Last administered on 03/27/18 09:21; Admin Dose 220 MG; Start 03/12/18 at 14:30 Ascorbic Acid (Vitamin C) 500 mg DAILY PO Last administered on 03/27/18 09:22; Admin Dose 500 MG; Start 03/12/18 at 14:30 Multivitamins Therapeutic (Theragran) 1 tab DAILY PO Last administered on 03/27/18 09:21; Admin Dose 1 TAB; Start 03/12/18 at 14:30 Magnesium Hydroxide (Milk Of Mag) 30 ml DAILY PRN PO CONSTIPATION; Start 03/13/18 at 13:00 Amoxicillin (Amoxicillin) 500 mg Q8 PO Last administered on 03/27/18at 13:15; Admin Dose 500 MG; Start 03/23/18 at 22:00 Doxycycline Hyclate (Vibramycin) 100 mg BID PO Last administered on 03/27/18 09:21; Admin Dose 100 MG; Start 03/23/18 at 21:00 LUKE BONILLA DPM Mar 27, 2018 16:30
--- NOTE | 2018-03-27 18:00 | NUR ---
NURSE NOTE: No acute changes. Pt is AXOX4. No signs of distress. No complaints of pain at this time. Wound dressing are dry and intact. Wound vac are patent. Bed alarm on. Call light within reach.
[2018-03-27 20:18] VITALS: BP 105/68; PULSE 87; RESP 20
[2018-03-27] MEDS: ZONISAMIDE 100 MG CAP PO SCH (21:01)
[2018-03-27] MEDS: RISPERIDONE 1 MG TAB PO SCH (21:01)
[2018-03-28] MEDS: HYDROCODONE/APAP (5/325) TAB PO PRN ×4 (01:01→20:00)
[2018-03-28 02:55] VITALS: BP 96/59; PULSE 76; RESP 18
[2018-03-28] MEDS: ARTIFICIAL TEARS 15 ML OPH BOTH EYES SCH ×3 (05:06→21:24)
[2018-03-28] MEDS: AMOXICILLIN 500 MG CAP PO SCH ×3 (05:06→21:36)
--- NOTE | 2018-03-28 06:11 | NUR ---
no acite changes overnight. remained afebrile with vss. wound care done as ordered. turned and repositioned q2. with c/o pain , medicated with norco with relief. fall precautions observed and hourly rounding done. will cont to monitor. and will endorse to next shift.
[2018-03-28] MEDS: SODIUM HYPOCHLORITE (1/40) 1 APPLIC BTL IRR SCH (08:59)
[2018-03-28] MEDS: SILVER SULFADIAZINE 1% 25 GM CR TOP SCH (09:00)
[2018-03-28] MEDS: COLLAGENASE 5 GM (UD JAR) TOP SCH ×2 (09:00)
[2018-03-28] MEDS: BALSAM PERU/CASTOR OIL 60 GM TUBE TOP SCH (09:00)
[2018-03-28] MEDS: VITAMIN A & D 5 GM OINT PACKET TOP SCH ×2 (09:00→21:27)
[2018-03-28] MEDS: GABAPENTIN 100 MG CAP PO SCH ×2 (09:05→21:36)
[2018-03-28] MEDS: MULTIVITAMINS THERAPEUTIC TAB PO SCH (09:05)
[2018-03-28] MEDS: ZINC SULFATE 220 MG CAP PO SCH (09:05)
[2018-03-28] MEDS: PYRIDOXINE 50 MG TAB PO SCH (09:05)
[2018-03-28] MEDS: FOLIC ACID 1 MG TAB PO SCH (09:05)
[2018-03-28] MEDS: MAGNESIUM OXIDE 400 MG TAB PO SCH ×2 (09:05→21:35)
[2018-03-28] MEDS: ASCORBIC ACID 500 MG TAB PO SCH (09:05)
[2018-03-28] MEDS: DULOXETINE 30 MG CAP DR PO SCH (09:05)
[2018-03-28] MEDS: BACLOFEN 10 MG TAB PO SCH ×3 (09:05→21:36)
[2018-03-28] MEDS: FAMOTIDINE 20 MG TAB PO SCH ×2 (09:05→21:36)
[2018-03-28] MEDS: DOXYCYCLINE 100 MG TAB PO SCH ×2 (09:05→21:36)
[2018-03-28] MEDS: ALLOPURINOL 100 MG TAB PO SCH (09:05)
[2018-03-28 09:06] VITALS: BP 131/75; PULSE 69; RESP 18
[2018-03-28] MEDS: DOCUSATE SODIUM 100 MG CAP PO SCH ×2 (09:08→21:37)
[2018-03-28] MEDS: ENOXAPARIN 40 MG/0.4 ML SYG SC SCH (09:14)
[2018-03-28] MEDS: NYSTATIN 15 GM POWDER BTL TOP SCH ×2 (09:24→21:27)
--- NOTE | 2018-03-28 12:07 | NUR ---
NURSE NOTE: Inquired with Dr. Adan, informed MD that patient has a wound vac at the heel and if he wants to continue wound vac at the custodial. Dr. Adan states yes. Form were faxed to Dr. Adan to be filled and window caser Mauri is aware. Spoke to Dr. Angulo to confirm any specific instructions regarding sacral wound vac. Dr. Angulo gave instructions, if SNF can take patinet with his sacral wound vac then continue same orders and if not, dressing orders were given. Per window caser Mauri, he spoke to the SNF and will be able to take patient possibly on Friday.
--- NOTE | 2018-03-28 14:11 | PN ---
Date/Time of Note Date/Time of Note DATE: 03/28/18 TIME: 14:09 Assessment/Plan Lines/Catheters IV Catheter Type (from [facility]): Saline Lock Benavidez in Place (from [facility]): Yes Assessment/Plan Chief Complaint/Hosp Course 1. Stage 4 necrotic wound: s/p repeat excisional debridement 03/26/18, bone sample sent for path; status post I&D&D of right thigh blister (healed); bone path noted: gangrenous necrosis -cont local care> Santyl to sacrum > consider follow ups at wound care clinic near where he will be discharged> wound VAC to sacrum-nursing to track tube in order to prevent equipment related skin damage> ok to be discharged without woundvac if needed -frequent turning and off-loading -low air loss mattress -vitamin c -short term zinc -optimize nutrition -skin protection against devices -further debridement prn 2. Bilateral lower extremity ulcers: with wound vac -As above -Per podiatry 3. Hypochromic microcytic anemia: -Monitor and transfuse as needed 4. Depression: -Psychiatric optimization 5. Paraplegia -Supportive 6. Hypertension -nutrition and medication optimization Thank you. Patient seen and examined in collaboration with Dr. Brian Angulo. Subjective 24 Hr Interval Summary No fevers, chills, sob, congested cough, cp, palpitations, woody, dizziness, n/v/d/dysuria. Pending discharge placement Exam/Review of Systems Vital Signs Vitals Vital Signs Date Temp Pulse Resp B/P (MAP) Pulse Ox O2 O2 Flow FiO2 Time Delivery Rate 03/28/18 97.8 69 18 131/75 98 Room Air 09:06 (93) Intake and Output 03/27/18 03/27/18 03/28/18 1515:00 23:00 07:00 IntakeIntake Total 860 ml 300 ml OutputOutput Total 800 ml BalanceBalance 860 ml -500 ml Exam Free Text/Dictation Constitutional: alert, oriented Psych: nl mood/affect Head: normocephalic, atraumatic Eyes: nl conjunctiva, EOMI, nl sclera ENMT: nl external ears & nose, nl lips & teeth, mucosa pink and moist Neck: supple, non-tender Respiratory: normal air movement; No congested cough Cardiovascular: regular rate and rhythm; No edema Gastrointestinal: soft, non-tender; No distended Musculoskeletal: nl extremities to inspection; No nl gait and stance Extremities: normal pulses; No edema Neurological: nl mental status, nl speech Skin: nl turgor, Sacral wound: no periwound erythema, minimal drainage (serosanguineous), wound vac; wound vac to lower leg; right thigh skin blister (healed) FERNANDO DÍAZ NP Mar 28, 2018 14:11
--- NOTE | 2018-03-28 15:03 | DS ---
Date/Time of Note Date/Time of Note DATE: 03/28/18 TIME: 15:03 Discharge Summary Admission/Discharge Info Admit Date/Time Jan 26, 2018 at 08:29 Discharge Date/Time Discharge Diagnosis 1. Bilateral heel Decub ulcers-status post excisional debridement of bilateral heel decubitus. No evidence of osteomyelitis. 2. Paraplegia secondary to spinal disorder and back surgery 6 months ago 3. Likely latent TB per home meds 4. Depression 5. Hypertension 6. Debility secondary to #2. 7. Chronic anemia with mild iron deficiency. Patient Condition: Good Hospital Course General: Patient is laying in bed and answers questions appropriately, does not have feeling below the shoulders Mentation: Patient is alert and oriented 4, Head: Normocephalic atraumatic Eyes: EOMI, pupils reactive to light Neck: Supple, nontender, midline Respiratory: Clear to auscultation bilaterally Cardiovascular: regular rate, no obvious murmurs Gastrointestinal: non-tender to palpation, bowel sounds heard. Neurological: Moves upper extremities appropriately, no feeling or movement in the lower extremities Skin: No new skin lesions ASSESSMENT/PLAN: Very unfortunate 57-year-old male with a history of paraplegia secondary to spinal cord syndrome 6 months ago, who also resides in a assisted, presented to the emergency room with worsening bilateral heel ulcers with foul-smelling drainage.... 1. Bilateral heel Decub ulcers without evidence of OM -s/p excisional debridement of bilateral heel decubitus wounds 01/26, 03/24. Wound vac applied -Left heel resolved -ulcers progressed on Rt heel => Repeat Bedside debridement and application of wound vac 03/04/18 -Antibiotic management per ID=>on orals for now -Wound care 2. Paraplegia secondary to spinal disorder and back surgery 6 months ago -Exact nature of disorder and surgery unclear -Continue baclofen 3. Depression -Continue home Cymbalta 4. Hypertension -Continue Coreg 5. Debility secondary to #2. -Patient resides in a assisted. 6. Chronic anemia with mild iron deficiency. -s/p tx 02/03=>stable H&H -Continue oral iron replacement. 7. Unstageable pressure ulcers, sacral coccyx -S/p bedside debridement 02/13/18=> deteriorates further secondary to immobilization/noncompliance with nursing turning protocol. -Repeat debridement 03/10/2018 w/ application of wound VAC -WC: VANCO RESISTANT enterococcus 3+, coag negative staph 1+, alpha hemolytic strep 1+. -On appropriate antimicrobials -Continue wound care -Add vitamin C/zinc/Theragen. Continue protein supplements. -Dietary Consult 8. Constipation -Continue stool softeners. PRN laxative Prophylaxis:Lovenox/Pepcid Diet: Regular CODE STATUS: Full code Disposition: Wound care/antibiotics. Pending assisted placement Home Meds Active Scripts Levofloxacin* (Levofloxacin*) 500 Mg Tablet, 500 MG PO DAILY, #14 TAB Prov:ADAMELIVIA V. CUSTOMER COUNTER REPRESENTATIVE 01/29/18 Reported Medications Nitroglycerin* (Nitro-Bid* Oint (30gm)) 1 Inch Oint, 1 INCH TD Q6 PRN for DYSURIA, TUB 01/25/18 Lidocaine (Lidocaine Topical) 30 Ml Jel, 30 ML TP PRN PRN for IF CATHETER REMAINS OCCULUDED 01/25/18 Famotidine* (Famotidine*) 20 Mg Tablet, 20 MG PO BID, #60 TAB 01/25/18 Folic Acid* (Folic Acid*) 1 Mg Tablet, 1 MG PO DAILY, TAB 01/25/18 Pyridoxine Hcl* (Pyridoxine Hcl*) 50 Mg Tablet, 50 MG PO DAILY, TAB 01/25/18 Zonisamide* (Zonegran*) 100 Mg Capsule, 300 MG PO QHS, CAP 01/25/18 Nystatin* (Nyamyc* Powder) 1 Applic Powder, 1 APPLIC TOP BID, EA 01/25/18 Polyvinyl Alcohol (Tears Again) 15 Ml Drops, 1 DRP BOTH EYES Q8, BOTTLE 01/07/18 Hydrocodone/Acetaminophen (Redkey 10-325 Tablet) 1 Each Tablet, 1 EACH PO Q6 PRN for PAIN, TAB 01/07/18 Risperidone* (Risperidone*) 1 Mg Tablet, 1 MG PO QHS, TAB 01/07/18 Magnesium Oxide* (Magnesium Oxide*) 400 Mg Tablet, 400 MG PO BID, TAB 01/07/18 Gabapentin* (Gabapentin*) 100 Mg Capsule, 100 MG PO BID, #90 CAP 01/07/18 Petrolatum,White* (Vaseline*) 5 Gm Oint.pack, 1 APPLIC TOP BID, PACKET 01/07/18 Carvedilol* (Carvedilol*) 12.5 Mg Tablet, 12.5 MG PO BID, #60 TAB 01/07/18 Duloxetine Hcl* (Duloxetine Hcl*) 30 Mg Capsule.dr, 30 MG PO DAILY, #30 CAP 01/07/18 Baclofen* (Baclofen*) 10 Mg Tablet, 10 MG PO TID, TAB 01/07/18 Allopurinol* (Allopurinol*) 100 Mg Tablet, 100 MG PO DAILY, TAB 01/07/18 Rifampin* (Rifampin*) 300 Mg Cap, 600 MG PO DAILY, CAP 01/07/18 Isoniazid* (Isoniazid*) 300 Mg Tablet, 300 MG PO DAILY, TAB 01/07/18 Bisacodyl (Dulcolax) 10 Mg Supp.rect, 10 MG RC DAILY PRN for CONSTIPATION, SUPP.RECT 01/07/18 Docusate Sodium* (Colace*) 100 Mg Capsule, 100 MG PO BID PRN for CONSTIPATION, #60 CAP 01/07/18 Follow-up Plan Follow-up with [facility] wound care clinic in 1 week. Continue antibiotic for 2 weeks Daily wound dressing: Irrigated with Dakin solution, dressed with Santyl, Xeroform and Kerlix. Offload bilateral heels on heel protectors and pillows Primary Care Provider Care Physician No ANGELI Bansal MD Mar 28, 2018 15:03
--- NOTE | 2018-03-28 15:14 | CONS ---
Consultation Date/Type/Reason Admit Date/Time Jan 26, 2018 at 08:29 Initial Consult Date SUBJECTIVE: Patient is awake, alert looks comfortable. VS: stable T: 97.8 LABS: reviewed. Antimicrobials: Amoxicillin, doxycycline Microbiology: Right heel wound culture grew enterococcus and Enterobacter cloacae, sacral wound culture growing enterococcus, strep, staph Sacral wound culture: GRAM STAIN Final EPITHELIAL CELLS 1+ GRAM POS COCCI IN CHAIN 1+ WOUND CULTURE Final Organism 1 VANCO RESISTANT ENTEROCOCCUS QUANTITY 3+ . MULTI DRUG RESISTANT ORGANISM Organism 2 COAGULASE NEGATIVE STAPH QUANTITY 1+ Organism 3 MARKOS ALBICANS QUANTITY 1+ Physical examination: GEN: Well-nourished well-developed middle-aged man who is awake in no distress. HENT: Head atraumatic normocephalic sclera nonicteric vehicle mucosa dry neck is supple Pulm: CTA, rise symmetrical breath sounds diminished bases CV:RRR, S1-S2. ABDOMEN: soft bowel sounds present. Extremities without cyanosis. Rt foot ulcer, currently with wound vac. Assessment: 1. Right foot ulceration status post debridement down to muscle 2. Stage III sacral wound, s/p debridement 03/10/18 3. Paraplegia 4. Hypertension 5. Diabetes Plan: Patient remains stable. Continue current antbx. Wound care per podiatry. Pending DC today. Requesting Provider: LIVIA ADAME NP Date/Time of Note DATE: 03/28/18 TIME: 15:13 Exam/Review of Systems Exam Vitals Vital Signs Date Temp Pulse Resp B/P (MAP) Pulse Ox O2 O2 Flow FiO2 Time Delivery Rate 03/28/18 97.8 69 18 131/75 98 Room Air 09:06 (93) Intake and Output 03/27/18 03/27/18 03/28/18 1515:00 23:00 07:00 IntakeIntake Total 860 ml 300 ml OutputOutput Total 800 ml BalanceBalance 860 ml -500 ml Medications Medication Current Medications IV Flush (NS 3 ml) 3 ml PER PROTOCOL IV ; Start 01/25/18 at 15:30 Ondansetron HCl (Zofran Inj) 4 mg Q6H PRN IV NAUSEA AND/OR VOMITING; Start 1 03/27/17 at 15:30 Acetaminophen (Tylenol Tab) 650 mg Q6H PRN PO PAIN LEVEL 1-3 OR FEVER Last administered on 1/16/19at 20:36; Admin Dose 650 MG; Start 01/25/18 at 15:30 Acetaminophen/ Hydrocodone Bitart ([place] (5/325)) 1 tab Q6H PRN PO MODERATE PAIN LEVEL 4-6 Last administered on 03/28/18 13:09; Admin Dose 1 TAB; Start 01/25/18 at 15:30 Allopurinol (Zyloprim) 100 mg DAILY PO Last administered on 03/28/18 09:05; Admin Dose 100 MG; Start 01/26/18 at 09:00 Baclofen (Lioresal) 10 mg TID PO Last administered on 03/28/18 13:09; Admin Dose 10 MG; Start 01/25/18 at 21:00 Carvedilol (Coreg) 12.5 mg BID PO Last administered on 03/28/18 09:06; Admin Dose 12.5 MG; Start 01/25/18 at 21:00 Duloxetine HCl (Cymbalta) 30 mg DAILY PO Last administered on 03/28/18 09:05; Admin Dose 30 MG; Start 01/26/18 at 09:00 Famotidine (Pepcid) 20 mg BID PO Last administered on 03/28/18 09:05; Admin Dose 20 MG; Start 01/25/18 at 21:00 Folic Acid (Folic Acid) 1 mg DAILY PO Last administered on 03/28/18 09:05; Admin Dose 1 MG; Start 01/26/18 at 09:00 Gabapentin (Neurontin) 100 mg BID PO Last administered on 03/28/18 09:05; Admin Dose 100 MG; Start 01/25/18 at 21:00 Magnesium Oxide (Mag-Ox 400) 400 mg BID PO Last administered on 03/28/18 09:05; Admin Dose 400 MG; Start 01/25/18 at 21:00 Nystatin 1 applic BID TOP Last administered on 03/28/18 09:24; Admin Dose 1 APPLIC; Start 01/25/18 at 21:00 Pyridoxine HCl (Vitamin B6) 50 mg DAILY PO Last administered on 03/28/18 09:05; Admin Dose 50 MG; Start 01/26/18 at 09:00 Risperidone (Risperdal) 1 mg QHS PO Last administered on 03/27/18 21:01; Admin Dose 1 MG; Start 01/25/18 at 21:00 Zonisamide (Zonegran) 300 mg QHS PO Last administered on 03/27/18 21:01; Admin Dose 300 MG; Start 01/25/18 at 21:00 Eye Lubricant (Artificial Tears Oph) 1 drop Q8 BOTH EYES Last administered on 03/28/18 13:10; Admin Dose 1 DROP; Start 01/25/18 at 22:00 Miscellaneous Information (Pending Santyl Order For Wound Care) This patient woody... PRN PRN XX wound; Start 01/25/18 at 16:30 Vitamin A/Vitamin D (Vitamin A & D Oint) 1 applic BID TOP Last administered on 03/27/18 21:02; Admin Dose 1 APPLIC; Start 01/26/18 at 21:00 Docusate Sodium (Colace) 200 mg BID PO Last administered on 03/28/18 09:08; Admin Dose 200 MG; Start 01/27/18 at 21:00 Enoxaparin Sodium (Lovenox) 40 mg DAILY SC Last administered on 03/28/18 09:14; Admin Dose 40 MG; Start 01/28/18 at 09:00 Sodium Hypochlorite (Dakin'S (Dilute 40)) 1 applic DAILY IRR Last administered on 03/23/18 10:05; Admin Dose 1 APPLIC; Start 01/27/18 at 18:30 Collagenase (Santyl) 1 applic DAILY TOP Last administered on 03/26/18 08:35; Admin Dose 1 APPLIC; Start 01/27/18 at 17:30 Collagenase (Santyl) 1 applic DAILY TOP Last administered on 03/26/18 08:35; Admin Dose 1 APPLIC; Start 02/04/18 at 09:00 Nitroglycerin (Nitroglycerin (Sl Tab) 0.4 Mg) 1 tab Q5M PRN SL ANGINA; Start 02/05/18 at 07:00 Diphenhydramine HCl (Benadryl) 25 mg Q6H PRN IV itching Last administered on 02/20/18 09:57; Admin Dose 25 MG; Start 02/19/18 at 14:00 Silver Sulfadiazine (Thermazene 1% 25 Gm) 1 applic DAILY TOP Last administered on 03/26/18 08:35; Admin Dose 1 APPLIC; Start 03/07/18 at 09:00 Zinc Sulfate (Zinc Sulfate) 220 mg DAILY PO Last administered on 03/28/18 09:05; Admin Dose 220 MG; Start 03/12/18 at 14:30 Ascorbic Acid (Vitamin C) 500 mg DAILY PO Last administered on 03/28/18 09:05; Admin Dose 500 MG; Start 03/12/18 at 14:30 Multivitamins Therapeutic (Theragran) 1 tab DAILY PO Last administered on 03/28/18at 09:05; Admin Dose 1 TAB; Start 03/12/18 at 14:30 Magnesium Hydroxide (Milk Of Mag) 30 ml DAILY PRN PO CONSTIPATION; Start 03/13/18 at 13:00 Amoxicillin (Amoxicillin) 500 mg Q8 PO Last administered on 03/28/18at 13:09; Admin Dose 500 MG; Start 03/23/18 at 22:00 Doxycycline Hyclate (Vibramycin) 100 mg BID PO Last administered on 03/28/18at 09:05; Admin Dose 100 MG; Start 03/23/18 at 21:00 LITO CARMONA Mar 28, 2018 15:14
--- NOTE | 2018-03-28 17:40 | NUR ---
NURSE NOTE: No acute changes. Pt is AXOX4. No signs of distress. pain medication given as needed. Pt wound dressing performed as ordered. Dr. Andrews informed regarding wound vac of the right heel that currently case monitor is working on. Pending arrival of wound vac at the [facility] possibly friday. Turn every 2 hrs. Pt bed alarm on.
[2018-03-28 21:01] VITALS: BP 114/73; PULSE 72; RESP 20
[2018-03-28] MEDS: RISPERIDONE 1 MG TAB PO SCH (21:36)
[2018-03-28] MEDS: ZONISAMIDE 100 MG CAP PO SCH (21:37)
[2018-03-29 03:07] VITALS: BP 106/67; PULSE 77; RESP 18
[2018-03-29] MEDS: HYDROCODONE/APAP (5/325) TAB PO PRN ×4 (04:49→23:37)
[2018-03-29] MEDS: ARTIFICIAL TEARS 15 ML OPH BOTH EYES SCH ×3 (05:00→21:09)
[2018-03-29] MEDS: AMOXICILLIN 500 MG CAP PO SCH ×3 (05:00→21:10)
--- NOTE | 2018-03-29 06:26 | NUR ---
Pt VS are stable. No acute changes or s/s of respiratory distress noted. Pt c/o pain and medicated with PRN [place]. Repositioned pt Q2h. Benavidez is patent and draining. Pt planned to be d/c on 03/30/18 pending wound vac; will endorse to oncoming nurse.
--- NOTE | 2018-03-29 08:01 | NUR ---
Wound VAC order; Followed up with [facility] about [facility] admission; per [facility]- they do not have Patient on their admission list but will check with their director; informed them that [facility] has already assigned room 201A and to give report to Delilah Philip However per [facility], no bed available at this time and Delilah Philip is not a nurse to give report. Upon call back, [facility] stated that they cannot take Patient today as will need further review and upon mention the need for wound VAC, they still have to order it from their vendor and may then be delivered on Friday. As such, discharge delayed until Friday once wound VAC delivered. Clinical reports to support wound VAC faxed to . Addendum: 03/29/18 at 1223 by NOAM HARRIS RN, CM Wound VAC Follow Up; [facility] spoke [facility]; she received the paperwork for Wound VAC and has placed order due to arrive on Friday. Asked if they are able to receive Patient without Wound VAC and wait for it to arrive, if cleared by Surgeons, however they were given clear instruction by [facility] to not receive Patient without Wound VAC. Will endorse to CM Team and will follow up on Friday.
[2018-03-29 08:38] VITALS: BP 105/60; PULSE 78; RESP 18
[2018-03-29] MEDS: COLLAGENASE 5 GM (UD JAR) TOP SCH ×2 (09:00→09:47)
[2018-03-29] MEDS: MAGNESIUM OXIDE 400 MG TAB PO SCH ×2 (09:47→21:10)
[2018-03-29] MEDS: DOXYCYCLINE 100 MG TAB PO SCH ×2 (09:47→21:10)
[2018-03-29] MEDS: ALLOPURINOL 100 MG TAB PO SCH (09:48)
[2018-03-29] MEDS: DULOXETINE 30 MG CAP DR PO SCH (09:48)
[2018-03-29] MEDS: PYRIDOXINE 50 MG TAB PO SCH (09:48)
[2018-03-29] MEDS: ZINC SULFATE 220 MG CAP PO SCH (09:48)
[2018-03-29] MEDS: DOCUSATE SODIUM 100 MG CAP PO SCH ×2 (09:48→21:10)
[2018-03-29] MEDS: ASCORBIC ACID 500 MG TAB PO SCH (09:48)
[2018-03-29] MEDS: FOLIC ACID 1 MG TAB PO SCH (09:48)
[2018-03-29] MEDS: MULTIVITAMINS THERAPEUTIC TAB PO SCH (09:48)
[2018-03-29] MEDS: FAMOTIDINE 20 MG TAB PO SCH ×2 (09:48→21:10)
[2018-03-29] MEDS: BACLOFEN 10 MG TAB PO SCH ×3 (09:48→21:10)
[2018-03-29] MEDS: VITAMIN A & D 5 GM OINT PACKET TOP SCH ×2 (09:49→21:09)
[2018-03-29] MEDS: GABAPENTIN 100 MG CAP PO SCH ×2 (09:49→21:10)
[2018-03-29] MEDS: SILVER SULFADIAZINE 1% 25 GM CR TOP SCH (09:50)
[2018-03-29] MEDS: NYSTATIN 15 GM POWDER BTL TOP SCH ×2 (09:50→21:14)
[2018-03-29] MEDS: ENOXAPARIN 40 MG/0.4 ML SYG SC SCH (09:57)
[2018-03-29] MEDS: SODIUM HYPOCHLORITE (1/40) 1 APPLIC BTL IRR SCH (11:05)
[2018-03-29] MEDS: BALSAM PERU/CASTOR OIL 60 GM TUBE TOP SCH (11:05)
--- NOTE | 2018-03-29 12:11 | PN ---
Date/Time of Note Date/Time of Note DATE: 03/29/18 TIME: 12:07 Assessment/Plan Lines/Catheters IV Catheter Type (from Nrs): Saline Lock Benavidez in Place (from Nrs): Yes Assessment/Plan Chief Complaint/Hosp Course 1. Stage 4 necrotic wound: s/p repeat excisional debridement 03/26/18, bone sample sent for path; status post I&D&D of right thigh blister (healed); bone path noted: gangrenous necrosis -cont local care> consider follow ups at wound care clinic near where he will be discharged> wound VAC to sacrum-nursing to track tube in order to prevent equipment related skin damage> ok to be discharged without woundvac if needed --(if will be discharged without wound VAC wound care orders: Cleanse with Dakin's quarter strength, apply Santyl to wound bed, packed with gauze cover with dry dressing, change twice daily) -frequent turning and off-loading -low air loss mattress -vitamin c -short term zinc -optimize nutrition -skin protection against devices -further debridement prn 2. Bilateral lower extremity ulcers: with wound vac -As above -Per podiatry 3. Hypochromic microcytic anemia: -Monitor and transfuse as needed 4. Depression: -Psychiatric optimization 5. Paraplegia -Supportive 6. Hypertension -nutrition and medication optimization Thank you. Patient seen and examined in collaboration with Dr. Brian Angulo. Subjective 24 Hr Interval Summary Feels well. No fevers, chills, sob, congested cough, cp, palpitations, woody, dizziness, nausea, vomiting, diarrhea, dysuria. Pending discharge-awaiting wound VAC at facility. Exam/Review of Systems Vital Signs Vitals Vital Signs Date Temp Pulse Resp B/P (MAP) Pulse Ox O2 O2 Flow FiO2 Time Delivery Rate 03/29/18 98.1 78 18 105/60 94 08:38 (75) 03/28/18 Room Air 09:06 Intake and Output 03/28/18 03/28/18 03/29/18 1515:00 23:00 07:00 IntakeIntake Total 720 ml 560 ml 320 ml OutputOutput Total 2800 ml 400 ml 2000 ml BalanceBalance -2080 ml 160 ml -1680 ml Exam Free Text/Dictation Constitutional: alert, oriented Psych: nl mood/affect Head: normocephalic, atraumatic Eyes: nl conjunctiva, EOMI, nl sclera ENMT: nl external ears & nose, nl lips & teeth, mucosa pink and moist Neck: supple, non-tender Respiratory: normal air movement; No congested cough Cardiovascular: regular rate and rhythm; No edema Gastrointestinal: soft, non-tender; No distended Musculoskeletal: nl extremities to inspection; No nl gait and stance Extremities: normal pulses; No edema Neurological: nl mental status, nl speech Skin: nl turgor, Sacral wound: no periwound erythema, minimal drainage (serosanguineous), wound vac; wound vac to lower leg; right thigh skin blister (healed) FERNANDO DÍAZ NP Mar 29, 2018 12:11
--- NOTE | 2018-03-29 13:45 | DS ---
Date/Time of Note Date/Time of Note DATE: 03/29/18 TIME: 13:43 Discharge Summary Admission/Discharge Info Admit Date/Time Jan 26, 2018 at 08:29 Discharge Date/Time Discharge Diagnosis 1. Bilateral heel Decub ulcers-status post excisional debridement of bilateral heel decubitus. No evidence of osteomyelitis. 2. Paraplegia secondary to spinal disorder and back surgery 6 months ago 3. Likely latent TB per home meds 4. Depression 5. Hypertension 6. Debility secondary to #2. 7. Chronic anemia with mild iron deficiency. Patient Condition: Stable Hospital Course Discharge held as there is no bed availability 1. Bilateral heel Decub ulcers without evidence of OM - Would discontinue antibiotics at discharge 2. Paraplegia secondary to spinal disorder and back surgery 6 months ago -Exact nature of disorder and surgery unclear -Continue baclofen 3. Depression -Continue home Cymbalta 4. Hypertension -Continue Coreg 5. Debility secondary to #2. -Patient resides in a senior care. 6. Chronic anemia with mild iron deficiency. -s/p tx 02/03=>stable H&H -Continue oral iron replacement. 7. Unstageable pressure ulcers, sacral coccyx -S/p bedside debridement 02/13/18=> deteriorates further secondary to immobilization/noncompliance with nursing turning protocol. -Repeat debridement 03/10/2018 w/ application of wound VAC -WC: VANCO RESISTANT enterococcus 3+, coag negative staph 1+, alpha hemolytic strep 1+. -On appropriate antimicrobials -Continue wound care -Add vitamin C/zinc/Theragen. Continue protein supplements. -Dietary Consult 8. Constipation -Continue stool softeners. PRN laxative Prophylaxis:Lovenox/Pepcid Diet: Regular CODE STATUS: Full code Disposition: Wound care/antibiotics. Pending senior care placement Home Meds Active Scripts Levofloxacin* (Levofloxacin*) 500 Mg Tablet, 500 MG PO DAILY, #14 TAB Prov:LIVIA ADAME V. SENIOR TELECOMMUNICATIONS TECHNICIAN 01/29/18 Reported Medications Nitroglycerin* (Nitro-Bid* Oint (30gm)) 1 Inch Oint, 1 INCH TD Q6 PRN for DYSURIA, TUB 01/25/18 Lidocaine (Lidocaine Topical) 30 Ml Jel, 30 ML TP PRN PRN for IF CATHETER REMAINS OCCULUDED 01/25/18 Famotidine* (Famotidine*) 20 Mg Tablet, 20 MG PO BID, #60 TAB 01/25/18 Folic Acid* (Folic Acid*) 1 Mg Tablet, 1 MG PO DAILY, TAB 01/25/18 Pyridoxine Hcl* (Pyridoxine Hcl*) 50 Mg Tablet, 50 MG PO DAILY, TAB 01/25/18 Zonisamide* (Zonegran*) 100 Mg Capsule, 300 MG PO QHS, CAP 01/25/18 Nystatin* (Nyamyc* Powder) 1 Applic Powder, 1 APPLIC TOP BID, EA 01/25/18 Polyvinyl Alcohol (Tears Again) 15 Ml Drops, 1 DRP BOTH EYES Q8, BOTTLE 01/07/18 Hydrocodone/Acetaminophen ([place] 10-325 Tablet) 1 Each Tablet, 1 EACH PO Q6 PRN for PAIN, TAB 01/07/18 Risperidone* (Risperidone*) 1 Mg Tablet, 1 MG PO QHS, TAB 01/07/18 Magnesium Oxide* (Magnesium Oxide*) 400 Mg Tablet, 400 MG PO BID, TAB 01/07/18 Gabapentin* (Gabapentin*) 100 Mg Capsule, 100 MG PO BID, #90 CAP 01/07/18 Petrolatum,White* (Vaseline*) 5 Gm Oint.pack, 1 APPLIC TOP BID, PACKET 01/07/18 Carvedilol* (Carvedilol*) 12.5 Mg Tablet, 12.5 MG PO BID, #60 TAB 01/07/18 Duloxetine Hcl* (Duloxetine Hcl*) 30 Mg Capsule.dr, 30 MG PO DAILY, #30 CAP 01/07/18 Baclofen* (Baclofen*) 10 Mg Tablet, 10 MG PO TID, TAB 01/07/18 Allopurinol* (Allopurinol*) 100 Mg Tablet, 100 MG PO DAILY, TAB 01/07/18 Rifampin* (Rifampin*) 300 Mg Cap, 600 MG PO DAILY, CAP 01/07/18 Isoniazid* (Isoniazid*) 300 Mg Tablet, 300 MG PO DAILY, TAB 01/07/18 Bisacodyl (Dulcolax) 10 Mg Supp.rect, 10 MG RC DAILY PRN for CONSTIPATION, SUPP.RECT 01/07/18 Docusate Sodium* (Colace*) 100 Mg Capsule, 100 MG PO BID PRN for CONSTIPATION, #60 CAP 01/07/18 Follow-up Plan Follow-up with [facility] wound care clinic in 1 week. Continue antibiotic for 2 weeks Daily wound dressing: Irrigated with Dakin solution, dressed with Santyl, Xeroform and Kerlix. Offload bilateral heels on heel protectors and pillows Primary Care Provider Care Physician ANGELI Weston MD Mar 29, 2018 13:45
[2018-03-29 15:22] VITALS: BP 107/59; PULSE 64; RESP 18
--- NOTE | 2018-03-29 17:57 | NUR ---
patient is alert and orientedx4. patient denies sob or distress. patient complains of pain and medicated as ordered and effective. all due medicine given and all needs attended to. partial areas dressing change done, and picture taken and in chart. Wound vac is to be changed every M W F, therfore left it until tomorrow for pictures to be taken during wound vac dressing change. kept clean and dry. turned and repositioned as scheduled. no new skin issues noted. call light placed within reach and fall precautions observed well. remains afebrile and will continue to monitor.
[2018-03-29 20:00] VITALS: BP 102/61; PULSE 88; RESP 18
[2018-03-29] MEDS: RISPERIDONE 1 MG TAB PO SCH (21:10)
[2018-03-29] MEDS: ZONISAMIDE 100 MG CAP PO SCH (21:10)
[2018-03-30 02:00] VITALS: BP 106/60; PULSE 76; RESP 18
[2018-03-30] MEDS: AMOXICILLIN 500 MG CAP PO SCH ×2 (05:29→13:06)
[2018-03-30] MEDS: ARTIFICIAL TEARS 15 ML OPH BOTH EYES SCH ×2 (05:30→13:06)
[2018-03-30] MEDS: HYDROCODONE/APAP (5/325) TAB PO PRN ×2 (05:30→13:06)
--- NOTE | 2018-03-30 07:52 | NUR ---
Pt VS are stable. No acute changes or s/s of respiratory distress noted. Pt c/o pain and medicated with PRN [place]. Repositioned pt Q2h. Benavidez is patent and draining. Pt planned to be d/c on 03/30/18 pending wound vac arrival at SNF; will endorse to oncoming nurse.
[2018-03-30 08:00] VITALS: BP 109/59; PULSE 65; RESP 18
--- NOTE | 2018-03-30 09:30 | NUR ---
Therapy day number 23 Subjective Current complaint of pain Pain Scale NUMERIC Pain Intensity 4 (0-10) Patient Stated Goal for Pain Relief 0 (0-10) Pain Level Comment mild reports of shoulder pain Exercise Assessment Label Bilat Lower Extremity Exercise Type Manual Stretching Additional Exercise Comments stretching BLE all planes Exercise Assessment Label Bilat Upper Extremity Exercise Type Active ROM Additional Exercise Comments scap squeeze, pec stx on towel, chin tucks, scaption Exercise Start Time 09:30 Exercise End Time 10:00 Total Exercise Time 30 min (8-127) Transfer Training Start Time 10:00 Supine to Sit Maximum Assist Bed Mobility Sit to Supine Maximum Assist Sitting Tolerance 2 min Additional Mobility Comments performed sitting in bed, long seated position with UE support Transfer Training End Time 10:10 Total Transfer Training Time 10 min (8-127) Static Sitting Balance Fair Dynamic Sitting Balance Poor Safety Judgement Good Activity Tolerance Fair Equipment Present A pump Drains Benavidez Catheter IV pump Post Treatment Pain Intensity 4 0-10 Total Treament Time 40 min (8-127) Total Minutes 40 Total Units 3 PT Technical Record Comment S: Patient in bed, agreeable to PT intervention. reports performed ther-ex on non-therapy time however NSG "took away my towel" O: PT intervention completed, pt back in bed, bed alarm activated and call light within reach, No reports of pain, dizziness, or shortness of breath with activity. Patient receptive to PT education. Nursing notified of progress A: Primary mobility limited secondary to lines and drains however patient demonstrates ability to hold self in long sitting position with LUE support. Patient receptive to PT education and motivated to participate. PT to continue to recommend OHFT and OT consult. P: Progress to EOB mobility as able
[2018-03-30] MEDS: MAGNESIUM OXIDE 400 MG TAB PO SCH (09:50)
[2018-03-30] MEDS: FOLIC ACID 1 MG TAB PO SCH (09:50)
[2018-03-30] MEDS: ZINC SULFATE 220 MG CAP PO SCH (09:50)
[2018-03-30] MEDS: FAMOTIDINE 20 MG TAB PO SCH (09:50)
[2018-03-30] MEDS: BACLOFEN 10 MG TAB PO SCH ×2 (09:51→13:06)
[2018-03-30] MEDS: PYRIDOXINE 50 MG TAB PO SCH (09:51)
[2018-03-30] MEDS: DOXYCYCLINE 100 MG TAB PO SCH (09:51)
[2018-03-30] MEDS: ASCORBIC ACID 500 MG TAB PO SCH (09:51)
[2018-03-30] MEDS: ALLOPURINOL 100 MG TAB PO SCH (09:51)
[2018-03-30] MEDS: DULOXETINE 30 MG CAP DR PO SCH (09:51)
[2018-03-30] MEDS: MULTIVITAMINS THERAPEUTIC TAB PO SCH (09:51)
[2018-03-30] MEDS: DOCUSATE SODIUM 100 MG CAP PO SCH (09:52)
[2018-03-30] MEDS: GABAPENTIN 100 MG CAP PO SCH (09:52)
[2018-03-30] MEDS: ENOXAPARIN 40 MG/0.4 ML SYG SC SCH (09:55)
--- NOTE | 2018-03-30 13:55 | PN ---
Date/Time of Note Date/Time of Note DATE: 03/30/18 TIME: 13:54 Objective Vitals Vital Signs Date Temp Pulse Resp B/P (MAP) Pulse Ox O2 O2 Flow FiO2 Time Delivery Rate 03/30/18 98.3 65 18 109/59 96 Room Air 08:00 (76) Intake and Output 03/29/18 03/29/18 03/30/18 1515:00 23:00 07:00 IntakeIntake Total 480 ml 580 ml OutputOutput Total 1300 ml 0 ml BalanceBalance 480 ml -720 ml 0 ml Medications Medications Current Medications IV Flush (NS 3 ml) 3 ml PER PROTOCOL IV ; Start 01/25/18 at 15:30 Ondansetron HCl (Zofran Inj) 4 mg Q6H PRN IV NAUSEA AND/OR VOMITING; Start 01/25/18 at 15:30 Acetaminophen (Tylenol Tab) 650 mg Q6H PRN PO PAIN LEVEL 1-3 OR FEVER Last administered on 03/18/18 20:36; Admin Dose 650 MG; Start 01/25/18 at 15:30 Acetaminophen/ Hydrocodone Bitart ([place] (5/325)) 1 tab Q6H PRN PO MODERATE PAIN LEVEL 4-6 Last administered on 03/30/18 13:06; Admin Dose 1 TAB; Start 01/25/18 at 15:30 Allopurinol (Zyloprim) 100 mg DAILY PO Last administered on 03/30/18 09:51; Admin Dose 100 MG; Start 01/26/18 at 09:00 Baclofen (Lioresal) 10 mg TID PO Last administered on 03/30/18 13:06; Admin Dose 10 MG; Start 01/25/18 at 21:00 Carvedilol (Coreg) 12.5 mg BID PO Last administered on 03/28/18 21:36; Admin Dose 12.5 MG; Start 01/25/18 at 21:00 Duloxetine HCl (Cymbalta) 30 mg DAILY PO Last administered on 03/30/18 09:51; Admin Dose 30 MG; Start 01/26/18 at 09:00 Famotidine (Pepcid) 20 mg BID PO Last administered on 03/30/18 09:50; Admin Dose 20 MG; Start 01/25/18 at 21:00 Folic Acid (Folic Acid) 1 mg DAILY PO Last administered on 03/30/18 09:50; Admin Dose 1 MG; Start 01/26/18 at 09:00 Gabapentin (Neurontin) 100 mg BID PO Last administered on 03/30/18 09:52; Admin Dose 100 MG; Start 01/25/18 at 21:00 Magnesium Oxide (Mag-Ox 400) 400 mg BID PO Last administered on 03/30/18 09:50; Admin Dose 400 MG; Start 01/25/18 at 21:00 Nystatin 1 applic BID TOP Last administered on 03/29/18 21:14; Admin Dose 1 APPLIC; Start 01/25/18 at 21:00 Pyridoxine HCl (Vitamin B6) 50 mg DAILY PO Last administered on 03/30/18 09:51; Admin Dose 50 MG; Start 01/26/18 at 09:00 Risperidone (Risperdal) 1 mg QHS PO Last administered on 03/29/18 21:10; Admin Dose 1 MG; Start 01/25/18 at 21:00 Zonisamide (Zonegran) 300 mg QHS PO Last administered on 03/29/18 21:10; Admin Dose 300 MG; Start 01/25/18 at 21:00 Eye Lubricant (Artificial Tears Oph) 1 drop Q8 BOTH EYES Last administered on 03/30/18 13:06; Admin Dose 1 DROP; Start 01/25/18 at 22:00 Miscellaneous Information (Pending [facility] Order For Wound Care) This patient woody... PRN PRN XX wound; Start 01/25/18 at 16:30 Vitamin A/Vitamin D (Vitamin A & D Oint) 1 applic BID TOP Last administered on 03/29/18 21:09; Admin Dose 1 APPLIC; Start 01/26/18 at 21:00 Docusate Sodium (Colace) 200 mg BID PO Last administered on 03/30/18 09:52; Admin Dose 200 MG; Start 01/27/18 at 21:00 Enoxaparin Sodium (Lovenox) 40 mg DAILY SC Last administered on 03/30/18 09:55; Admin Dose 40 MG; Start 01/28/18 at 09:00 Sodium Hypochlorite (Dakin'S (Dilute 40)) 1 applic DAILY IRR Last administered on 03/29/18 11:05; Admin Dose 1 APPLIC; Start 01/27/18 at 18:30 Collagenase (Santyl) 1 applic DAILY TOP Last administered on 03/29/18 09:47; Admin Dose 1 APPLIC; Start 01/27/18 at 17:30 Collagenase (Santyl) 1 applic DAILY TOP Last administered on 03/26/18 08:35; Admin Dose 1 APPLIC; Start 02/04/18 at 09:00 Nitroglycerin (Nitroglycerin (Sl Tab) 0.4 Mg) 1 tab Q5M PRN SL ANGINA; Start 02/05/18 at 07:00 Diphenhydramine HCl (Benadryl) 25 mg Q6H PRN IV itching Last administered on 02/20/18at 09:57; Admin Dose 25 MG; Start 02/19/18 at 14:00 Silver Sulfadiazine (Thermazene 1% 25 Gm) 1 applic DAILY TOP Last administered on 03/29/18 09:50; Admin Dose 1 APPLIC; Start 03/07/18 at 09:00 Zinc Sulfate (Zinc Sulfate) 220 mg DAILY PO Last administered on 03/30/18 09:50; Admin Dose 220 MG; Start 03/12/18 at 14:30 Ascorbic Acid (Vitamin C) 500 mg DAILY PO Last administered on 03/30/18 09:51; Admin Dose 500 MG; Start 03/12/18 at 14:30 Multivitamins Therapeutic (Theragran) 1 tab DAILY PO Last administered on 03/30/18 09:51; Admin Dose 1 TAB; Start 03/12/18 at 14:30 Magnesium Hydroxide (Milk Of Mag) 30 ml DAILY PRN PO CONSTIPATION; Start 03/13/18 at 13:00 Amoxicillin (Amoxicillin) 500 mg Q8 PO Last administered on 03/30/18 13:06; Admin Dose 500 MG; Start 03/23/18 at 22:00 Doxycycline Hyclate (Vibramycin) 100 mg BID PO Last administered on 03/30/18 09:51; Admin Dose 100 MG; Start 03/23/18 at 21:00 VTE Prophylaxis Risk score (from Nsg)>0 risk: 6 SCD applied (from Ns): No SCD contraindication: other Lines/Catheters IV Catheter Type: Benavidez in Place: No Assessment/Plan Hospital Course Subjective No acute changes overnight Objective Physical exam General: Patient is laying in bed and answers questions appropriately, does not have feeling below the shoulders Mentation: Patient is alert and oriented 4, Head: Normocephalic atraumatic Eyes: EOMI, pupils reactive to light Neck: Supple, nontender, midline Respiratory: Clear to auscultation bilaterally Cardiovascular: regular rate, no obvious murmurs Gastrointestinal: non-tender to palpation, bowel sounds heard. Neurological: Moves upper extremities appropriately, no feeling or movement in the lower extremities Skin: No new skin lesions ASSESSMENT/PLAN: Very unfortunate 57-year-old male with a history of paraplegia secondary to spinal cord syndrome 6 months ago, who also resides in a intermediate, presented to the emergency room with worsening bilateral heel ulcers with foul-smelling drainage.... 1. Bilateral heel and Decub ulcers without evidence of OM -cont abx 2. Paraplegia secondary to spinal disorder and back surgery 6 months ago -Exact nature of disorder and surgery unclear -Continue baclofen 3. Depression -Continue home Cymbalta 4. Hypertension -Continue Coreg 5. Debility secondary to #2. -Patient resides in a intermediate. 6. Chronic anemia with mild iron deficiency. -s/p tx 02/03=>stable H&H -Continue oral iron replacement. 7. Unstageable pressure ulcers, sacral coccyx -S/p bedside debridement 02/13/18=> deteriorates further secondary to immobilization/noncompliance with nursing turning protocol. -Repeat debridement 03/10/2018 w/ application of wound VAC -WC: VANCO RESISTANT enterococcus 3+, coag negative staph 1+, alpha hemolytic strep 1+. -On appropriate antimicrobials -Continue wound care -Add vitamin C/zinc/Theragen. Continue protein supplements. -Dietary Consult 8. Constipation -Continue stool softeners. PRN laxative Prophylaxis:Lovenox/Pepcid Diet: Regular CODE STATUS: Full code Disposition: Wound care/antibiotics. Pending intermediate placement MARC CHAN Mar 30, 2018 13:55
--- NOTE | 2018-03-30 14:00 | DS ---
Date/Time of Note Date/Time of Note DATE: 03/30/18 TIME: 14:00 Discharge Summary Admission/Discharge Info Admit Date/Time Jan 26, 2018 at 08:29 Discharge Date/Time Discharge Diagnosis 1. Bilateral heel Decub ulcers-status post excisional debridement of bilateral heel decubitus. No evidence of osteomyelitis. 2. Paraplegia secondary to spinal disorder and back surgery 6 months ago 3. Likely latent TB per home meds 4. Depression 5. Hypertension 6. Debility secondary to #2. 7. Chronic anemia with mild iron deficiency. Patient Condition: Stable Hospital Course Patient is a male with past medical history significant for lower extremity paraplegia secondary to spinal cord syndrome due to unclear spinal cord surgery approximately 6 months ago. Patient resides in a custodial and presented to [facility] for worsening bilateral heel ulcers and foul-smelling drainage. Patient was diagnosed with bilateral heel and decubitus ulcers and seen by infectious disease. Patient was seen by multiple specialists including general surgeon which provided intervention including mul tiple incision and debridements and currently has wound VAC to that toe as well as the sacrum. Patient is to continue oral antibiotics for approximately 2 weeks at this time and to continue all home medications. Discharge diagnosis Bilateral heel ulcers Sacral decubitus ulcers, without evidence of osteomyelitis Chronic paraplegia secondary to spinal disorder and back surgery 6 months ago Depression Hypertension Debility Chronic anemia Unstageable pressure ulcers Constipation Home Meds Active Scripts Levofloxacin* (Levofloxacin*) 500 Mg Tablet, 500 MG PO DAILY, #14 TAB Prov:LIVIA ADAME V. EQUITIES ANALYST 01/29/18 Reported Medications Nitroglycerin* (Nitro-Bid* Oint (30gm)) 1 Inch Oint, 1 INCH TD Q6 PRN for DYSURIA, TUB 01/25/18 Lidocaine (Lidocaine Topical) 30 Ml Jel, 30 ML TP PRN PRN for IF CATHETER REMAINS OCCULUDED 01/25/18 Famotidine* (Famotidine*) 20 Mg Tablet, 20 MG PO BID, #60 TAB 01/25/18 Folic Acid* (Folic Acid*) 1 Mg Tablet, 1 MG PO DAILY, TAB 01/25/18 Pyridoxine Hcl* (Pyridoxine Hcl*) 50 Mg Tablet, 50 MG PO DAILY, TAB 01/25/18 Zonisamide* (Zonegran*) 100 Mg Capsule, 300 MG PO QHS, CAP 01/25/18 Nystatin* (Nyamyc* Powder) 1 Applic Powder, 1 APPLIC TOP BID, EA 01/25/18 Polyvinyl Alcohol (Tears Again) 15 Ml Drops, 1 DRP BOTH EYES Q8, BOTTLE 01/07/18 Hydrocodone/Acetaminophen ([place] 10-325 Tablet) 1 Each Tablet, 1 EACH PO Q6 PRN for PAIN, TAB 01/07/18 Risperidone* (Risperidone*) 1 Mg Tablet, 1 MG PO QHS, TAB 01/07/18 Magnesium Oxide* (Magnesium Oxide*) 400 Mg Tablet, 400 MG PO BID, TAB 01/07/18 Gabapentin* (Gabapentin*) 100 Mg Capsule, 100 MG PO BID, #90 CAP 01/07/18 Petrolatum,White* (Vaseline*) 5 Gm Oint.pack, 1 APPLIC TOP BID, PACKET 01/07/18 Carvedilol* (Carvedilol*) 12.5 Mg Tablet, 12.5 MG PO BID, #60 TAB 01/07/18 Duloxetine Hcl* (Duloxetine Hcl*) 30 Mg Capsule.dr, 30 MG PO DAILY, #30 CAP 01/07/18 Baclofen* (Baclofen*) 10 Mg Tablet, 10 MG PO TID, TAB 01/07/18 Allopurinol* (Allopurinol*) 100 Mg Tablet, 100 MG PO DAILY, TAB 01/07/18 Rifampin* (Rifampin*) 300 Mg Cap, 600 MG PO DAILY, CAP 01/07/18 Isoniazid* (Isoniazid*) 300 Mg Tablet, 300 MG PO DAILY, TAB 01/07/18 Bisacodyl (Dulcolax) 10 Mg Supp.rect, 10 MG RC DAILY PRN for CONSTIPATION, SUPP.RECT 01/07/18 Docusate Sodium* (Colace*) 100 Mg Capsule, 100 MG PO BID PRN for CONSTIPATION, #60 CAP 01/07/18 Follow-up Plan Follow up with wound care physician as soon as possible for your multiple wounds Primary Care Provider Care Physician No Primary Time spent on discharge: > 30 minutes MARC CHAN Mar 30, 2018 14:00
--- NOTE | 2018-03-30 14:00 | NUR ---
NURSE NOTE: Spoke to CM, pt is accepted [facility] and facility is aware regarding wound vacs of the patient. pt will be picked up a t1800.
[2018-03-30 14:03] VITALS: BP 112/60; PULSE 72; RESP 18
--- NOTE | 2018-03-30 15:21 | CONS ---
Assessment/Plan Assessment/Plan Hospital Course (Demo Recall) No acute changes, patient is alert and feels good, no fevers overnight Repeat cultures of the right foot grew VRE susceptible to ampicillin, coag neg ative staph and oxacillin sensitive staph aureus both susceptible to doxycycline Antimicrobials: Amoxicillin, doxycycline Physical examination: Well-nourished well-developed middle-aged man who is awake in no distress. Head atraumatic normocephalic sclera nonicteric vehicle mucosa dry neck is supple chest rise symmetrical breath sounds diminished bases heart S1-S2. Abdomen soft bowel sounds present. Extremities without cyanosis. Assessment: 1. Right foot ulceration status post multiple debridement down to muscle 2. Stage III sacral wound, s/p multiple debridement 3. Paraplegia 4. Hypertension 5. Diabetes Plan: Patient remains stable, continue abx for another 10 more days, wound care per surgical and podiatry rec-s Consultation Date/Type/Reason Admit Date/Time Jan 26, 2018 at 08:29 Initial Consult Date 02/12/18 Type of Consult id Requesting Provider: LIVIA ADAME NP Date/Time of Note DATE: 03/30/18 TIME: 15:20 Exam/Review of Systems Exam Vitals Vital Signs Date Temp Pulse Resp B/P (MAP) Pulse Ox O2 O2 Flow FiO2 Time Delivery Rate 03/30/18 98.3 65 18 109/59 96 Room Air 08:00 (76) Intake and Output 03/29/18 03/29/18 03/30/18 1515:00 23:00 07:00 IntakeIntake Total 480 ml 580 ml OutputOutput Total 1300 ml 0 ml BalanceBalance 480 ml -720 ml 0 ml Medications Medication Current Medications IV Flush (NS 3 ml) 3 ml PER PROTOCOL IV ; Start 01/25/18 at 15:30 Ondansetron HCl (Zofran Inj) 4 mg Q6H PRN IV NAUSEA AND/OR VOMITING; Start 01/25/18 at 15:30 Acetaminophen (Tylenol Tab) 650 mg Q6H PRN PO PAIN LEVEL 1-3 OR FEVER Last administered on 03/18/18at 20:36; Admin Dose 650 MG; Start 01/25/18 at 15:30 Acetaminophen/ Hydrocodone Bitart ([place] (5/325)) 1 tab Q6H PRN PO MODERATE PAIN LEVEL 4-6 Last administered on 03/30/18 13:06; Admin Dose 1 TAB; Start 01/25/18 at 15:30 Allopurinol (Zyloprim) 100 mg DAILY PO Last administered on 03/30/18 09:51; Admin Dose 100 MG; Start 01/26/18 at 09:00 Baclofen (Lioresal) 10 mg TID PO Last administered on 03/30/18 13:06; Admin Dose 10 MG; Start 01/25/18 at 21:00 Carvedilol (Coreg) 12.5 mg BID PO Last administered on 03/28/18 21:36; Admin Dose 12.5 MG; Start 01/25/18 at 21:00 Duloxetine HCl (Cymbalta) 30 mg DAILY PO Last administered on 03/30/18 09:51; Admin Dose 30 MG; Start 01/26/18 at 09:00 Famotidine (Pepcid) 20 mg BID PO Last administered on 03/30/18 09:50; Admin Dose 20 MG; Start 01/25/18 at 21:00 Folic Acid (Folic Acid) 1 mg DAILY PO Last administered on 03/30/18 09:50; Admin Dose 1 MG; Start 01/26/18 at 09:00 Gabapentin (Neurontin) 100 mg BID PO Last administered on 03/30/18 09:52; Admin Dose 100 MG; Start 01/25/18 at 21:00 Magnesium Oxide (Mag-Ox 400) 400 mg BID PO Last administered on 03/30/18 09:50; Admin Dose 400 MG; Start 01/25/18 at 21:00 Nystatin 1 applic BID TOP Last administered on 03/29/18 21:14; Admin Dose 1 APPLIC; Start 01/25/18 at 21:00 Pyridoxine HCl (Vitamin B6) 50 mg DAILY PO Last administered on 03/30/18 09:51; Admin Dose 50 MG; Start 01/26/18 at 09:00 Risperidone (Risperdal) 1 mg QHS PO Last administered on 03/29/18 21:10; Admin Dose 1 MG; Start 01/25/18 at 21:00 Zonisamide (Zonegran) 300 mg QHS PO Last administered on 03/29/18 21:10; Admin Dose 300 MG; Start 01/25/18 at 21:00 Eye Lubricant (Artificial Tears Oph) 1 drop Q8 BOTH EYES Last administered on 03/30/18 13:06; Admin Dose 1 DROP; Start 01/25/18 at 22:00 Miscellaneous Information (Pending Santyl Order For Wound Care) This patient woody... PRN PRN XX wound; Start 01/25/18 at 16:30 Vitamin A/Vitamin D (Vitamin A & D Oint) 1 applic BID TOP Last administered on 03/29/18 21:09; Admin Dose 1 APPLIC; Start 01/26/18 at 21:00 Docusate Sodium (Colace) 200 mg BID PO Last administered on 03/30/18 09:52; Admin Dose 200 MG; Start 01/27/18 at 21:00 Enoxaparin Sodium (Lovenox) 40 mg DAILY SC Last administered on 03/30/18 09:55; Admin Dose 40 MG; Start 01/28/18 at 09:00 Sodium Hypochlorite (Dakin'S (Dilute )) 1 applic DAILY IRR Last administered on 03/29/18 11:05; Admin Dose 1 APPLIC; Start 01/27/18 at 18:30 Collagenase (Santyl) 1 applic DAILY TOP Last administered on 03/29/18 09:47; Admin Dose 1 APPLIC; Start 01/27/18 at 17:30 Collagenase (Santyl) 1 applic DAILY TOP Last administered on 03/26/18 08:35; Admin Dose 1 APPLIC; Start 02/04/18 at 09:00 Nitroglycerin (Nitroglycerin (Sl Tab) 0.4 Mg) 1 tab Q5M PRN SL ANGINA; Start 02/05/18 at 07:00 Diphenhydramine HCl (Benadryl) 25 mg Q6H PRN IV itching Last administered on 02/20/18at 09:57; Admin Dose 25 MG; Start 02/19/18 at 14:00 Silver Sulfadiazine (Thermazene 1% 25 Gm) 1 applic DAILY TOP Last administered on 03/29/18 09:50; Admin Dose 1 APPLIC; Start 03/07/18 at 09:00 Zinc Sulfate (Zinc Sulfate) 220 mg DAILY PO Last administered on 03/30/18 09:50; Admin Dose 220 MG; Start 03/12/18 at 14:30 Ascorbic Acid (Vitamin C) 500 mg DAILY PO Last administered on 03/30/18 09:51; Admin Dose 500 MG; Start 03/12/18 at 14:30 Multivitamins Therapeutic (Theragran) 1 tab DAILY PO Last administered on 03/30/18at 09:51; Admin Dose 1 TAB; Start 03/12/18 at 14:30 Magnesium Hydroxide (Milk Of Mag) 30 ml DAILY PRN PO CONSTIPATION; Start 03/13/18 at 13:00 Amoxicillin (Amoxicillin) 500 mg Q8 PO Last administered on 03/30/18at 13:06; Admin Dose 500 MG; Start 03/23/18 at 22:00 Doxycycline Hyclate (Vibramycin) 100 mg BID PO Last administered on 03/30/18 09:51; Admin Dose 100 MG; Start 03/23/18 at 21:00 DINA VICTOR NP Mar 30, 2018 15:21
--- NOTE | 2018-03-30 16:39 | NUR ---
DC TO [facility] @ [address] [facility], T [phone] BHARGAV EX NOTIFIED AND AGREED , PROVIDE HER TEL # AND ADDRESS OF PLACE. Addendum: 03/30/18 at 1642 by GENOVEVA GONSALES CM Amended: Links added.
--- NOTE | 2018-03-30 16:40 | NUR ---
Report given to nurse Yong @ [facility]- concerns about Benavidez not being changed prior to Dc - addressed. Benavidez changed prior to Dc per MD orders. Instructed pt ton procedure prior to performing- understanding verbalized. Pt juan josé placement well. Benavidez well secured. Wound vacs removed prior to Dc - wet to dry dsg applied, secured w/ Allevyn. All wound dressings changed prior to Dc. Pictures taken w/ asssist of Phyllis and placed in chart. IVL dc'd and pressure dsg applied, bleeding well controlled. Pt A/O x4 at DC . VSS.
--- NOTE | 2018-03-30 17:00 | NUR ---
NURSE NOTE: Spoke to Yong, from [facility], who was speaking to the current primary RN Jenaro (who was providing report to the facility), just to clarify some concerns which is the PO antibiotic amoxicillin. Confirmed with Yong, that patient's wound vac dressings will be removed prior to leaving the hospital and retirement will need to place the wound vac per order. Yong verbalized understanding. Addendum: 03/30/18 at 2019 by ANGELIKA MOORE RN Phonecall was returned to the primary RN after this brief conversation.
[2018-03-30] MEDS: VITAMIN A & D 5 GM OINT PACKET TOP SCH (17:36)
[2018-03-30] MEDS: BALSAM PERU/CASTOR OIL 60 GM TUBE TOP SCH (17:37)
[2018-03-30] MEDS: NYSTATIN 15 GM POWDER BTL TOP SCH (17:37)
[2018-03-30] MEDS: SILVER SULFADIAZINE 1% 25 GM CR TOP SCH (17:37)
[2018-03-30] MEDS: COLLAGENASE 5 GM (UD JAR) TOP SCH ×2 (17:37→17:39)
[2018-03-30] MEDS: SODIUM HYPOCHLORITE (1/40) 1 APPLIC BTL IRR SCH (17:38)
== END 2018-03-30 18:17 | DRG 570 ==
LOC: E/R 09:39 → PP2 14:38 → OBSVTOIN 01-26 08:29 → PP2 03-05 16:39
PROVIDERS: ADMIT Internal Medicine; ATTEND Internal Medicine
PROC: 0JBR0ZZ Excision of Left Foot Subcutaneous Tissue and Fascia, Open Approach (ICD-10-PCS; principal; 2018-01-28)
PROC: 0JBQ0ZZ Excision of Right Foot Subcutaneous Tissue and Fascia, Open Approach (ICD-10-PCS; 2018-01-28)
PROC: 0JB70ZZ Excision of Back Subcutaneous Tissue and Fascia, Open Approach (ICD-10-PCS; 2018-02-13)
PROC: 0JB70ZZ Excision of Back Subcutaneous Tissue and Fascia, Open Approach (ICD-10-PCS; 2018-02-20)
PROC: 0JB70ZZ Excision of Back Subcutaneous Tissue and Fascia, Open Approach (ICD-10-PCS; 2018-02-20)
PROC: 0KBV0ZZ Excision of Right Foot Muscle, Open Approach (ICD-10-PCS; 2018-03-04)
PROC: 0H9HXZZ Drainage of Right Upper Leg Skin, External Approach (ICD-10-PCS; 2018-03-06)
PROC: 0QB10ZZ Excision of Sacrum, Open Approach (ICD-10-PCS; 2018-03-18)
PROC: 30233N1 Transfusion of Nonautologous Red Blood Cells into Peripheral Vein, Percutaneous Approach (ICD-10-PCS; 2018-03-19)
DX: L03.116 Cellulitis of left lower limb (principal); L89.153 Pressure ulcer of sacral region, stage 3; L89.154 Pressure ulcer of sacral region, stage 4; G82.20 Paraplegia, unspecified; B37.89 Other sites of candidiasis; L89.622 Pressure ulcer of left heel, stage 2; L03.115 Cellulitis of right lower limb; L89.611 Pressure ulcer of right heel, stage 1; D64.9 Anemia, unspecified; Z74.01 Bed confinement status; F32.9 Major depressive disorder, single episode, unspecified; I10 Essential (primary) hypertension; B95.2 Enterococcus as the cause of diseases classified elsewhere; B95.7 Other staphylococcus as the cause of diseases classified elsewhere; Z16.21 Resistance to vancomycin; B96.89 Other specified bacterial agents as the cause of diseases classified elsewhere
CPT/HCPCS: 36415; 36430; 71045; 73630; 80048; 80053; 80202; 81003; 82150; 82565; 82728; 83036; 83540; 83605; 83690; 83735; 84100; 84145; 84484; 84520; 85025; 85610; 85651; 85730; 86140; 86480; 86850; 86900; 86901; 86920; 87040; 87070; 87081; 87086; 88307; 90686; 93005; 93922; 96374; 96375; 97110; 97163; 97167; 97530; 97535; G0378; J1170; J1200; J1650; J1956; J2185; J2270; J2405; J2543; J3370; J7030; J7040; J7050; P9016; Q4081